=== PATIENT | male | born 1945 | race Caucasian/White ===

== ENCOUNTER 2017-02-25 14:48 | Inpatient (IN) | payer OTHER, MEDICARE ==
--- NOTE | 2017-02-25 15:11 | PDOC ---
Attending Attestation - Resident Resident Name: Katerina Alfonso - ED Attending Attestation I have performed the following: I have examined & evaluated the patient, The case was reviewed & discussed with the resident, I agree w/resident's findings & plan, Exceptions are as noted - HPI HPI: 02/25/17 15:10 71 yo male with hand swelling and redness. sent by dr baca for hand swelling erythema concern for infection. 03/22/17 17:55 - Physicial Exam PE: 02/25/17 17:54 awake alert lungs clear heart rr no mrg abd soft nt nd ext wwp. lue: wrist ttp. decreased rom secondary to pain. erythema warmth and edema. to elbow. n/v intact. skin otherwise warm and dry. nuero alert orientedx 3. - Medical Decision Making 02/25/17 15:11 plan antiobtiocs, xray, ekg admission will d/w dr baca and dr vivek roland.
[2017-02-25] MEDS ORDERED: VANCOMYCIN 1 GRAM (PRE-DOCKED) 1,000 MG/250 ML BAG IVPB ONE (16:10)
[2017-02-25] MEDS ORDERED: PIPERACILLIN/TAZOB 3.375 GM/50 ML PRE-DOCKED IV ONE (16:12)
[2017-02-25 16:13] LABS: BASOPHIL 0.2 % (0-2.0); MCH 30.9 pg (25.7-33.7); MEAN CELL VOLUME 90.9 fl (80-96); MEAN PLT VOLUME 9.3 fl (7.5-11.1); NEUTROPHILS 79.2 % (42.8-82.8); PLATELET COUNT 195 K/MM3 (134-434); RDW 13.6 % (11.9-15.9); WHITE BLOOD COUNT 12.6 K/mm3 (4.0-10.0)
--- NOTE | 2017-02-25 16:13 | PDOC ---
History of Present Illness - General Chief Complaint: Edema Stated Complaint: LT ARM/HAND PAIN (PCP SENT) Time Seen by Provider: 02/25/17 14:54 History Source: Patient, Spouse Exam Limitations: No Limitations - History of Present Illness Initial Comments: This is a 71 yo male with h/o gout (on allopurinol with last flare 15 years ago) , HTN, and CAD who presents with left wrist and hand pain/swelling for the past four days. He was seen at Urgent Care three days ago and was given colchicine, which he has taken daily along with indosin without relief. The pain is worsening, 10/10 now, located in the left hand and wrist, worsens with any movement of the joints, and radiates to the elbow. It feels flushed and hot. He has had these symptoms before in his toe and ankle associated with gout flares, but never this degree of swelling and never on the wrist. He additionally feels tired, weak, dyspneic on exertion, and has had temperature up to 100.1 with chills at home, and headache. He denies any nausea, vomiting, chest pain, SOB at rest, vision changes, change in weight, or other symptoms. He has not injured the hand lately and notes no recent skin breaks to the area. Past History - Past Medical History Allergies/Adverse Reactions: Allergies Allergy/AdvReac Type Severity Reaction Status Date / Time No Known Allergies Allergy Verified 02/25/17 14:59 Home Medications: Ambulatory Orders Allopurinol [Zyloprim -] 300 mg PO DAILY 02/25/17 Atorvastatin Ca [Lipitor] 40 mg PO HS 02/25/17 Cholecalciferol (Vitamin D3) [Vitamin D3] 2,000 unit PO DAILY 02/25/17 Ezetimibe [Zetia] 10 mg PO DAILY 02/25/17 Losartan Potassium 50 mg PO BID 02/25/17 Meclizine HCl 25 mg PO TID PRN 02/25/17 Metformin HCl [Metformin HCl ER] 1,000 mg PO BID 02/25/17 Metoprolol Succinate [Toprol Xl -] 25 mg PO DAILY 02/25/17 Spironolactone [Aldactone] 50 mg PO DAILY 02/25/17 Vitamin E 400 unit PO DAILY 02/25/17 Anemia: No Asthma: No Cancer: No Cardiac Disorders: Yes (ASHD,PAROXYSMAL ATRIAL FLUTTER S/P ABLATION) CVA: No COPD: No CHF: No Dementia: No Diabetes: Yes (NIDDM) GI Disorders: Yes (DIVERTICULOSIS,GALLSTONES) Disorders: No HTN: Yes Hypercholesterolemia: Yes Liver Disease: Yes (NAFLD) Seizures: No Thyroid Disease: No Other medical history: GOUT. - Surgical History Abdominal Surgery: No Appendectomy: No Cardiac Surgery: Yes (QUADRUPLE CORONARY BYPASS-1982,TRIPLE CORONARY BYPASS-1999 ,ANGIOPLASTY) Cholecystectomy: No Lung Surgery: No Neurologic Surgery: No Orthopedic Surgery: No - Immunization History Td Vaccination: Yes Immunization Up to Date: Yes - Psycho/Social/Smoking Cessation Hx Anxiety: No Suicidal Ideation: No Smoking Status: Yes Smoking History: Never smoked Years of Tobacco Use: 0 Have you smoked in the past 12 months: No Number of Cigarettes Smoked Daily: 0 If you are a former smoker, when did you quit?: 30 years ago Cigars Per Day: 0 Information on smoking cessation initiated: No Hx Alcohol Use: No Drug/Substance Use Hx: No Substance Use Type: None Hx Substance Use Treatment: No Review of Systems - Review of Systems Able to Perform ROS?: Yes Constitutional: Yes: Chills, Fever, Weakness. No: Unexplained wgt Loss HEENTM: No: Recent change in vision, Nose Congestion, Throat Pain Respiratory: Yes: SOB with Exertion. No: Cough, SOB at Rest Cardiac (ROS): No: Chest Pain, Palpitations ABD/GI: No: Constipated, Diarrhea, Nausea, Vomiting : No: Burning, Dysuria Musculoskeletal: Yes: Other (wrist and hand pain and swelling). No: Back Pain, Neck Pain Integumentary: No: Bruising, Rash Neurological: Yes: Headache. No: Weakness, Dizziness Endocrine: No: Unexplained Weight Gain, Unexplained Weight Loss *Physical Exam - Vital Signs Last Vital Signs Temp Pulse Resp BP Pulse Ox 98.3 F 108 H 18 113/66 98 02/25/17 14:49 02/25/17 14:49 02/25/17 14:49 02/25/17 14:49 02/25/17 14:49 - Physical Exam General Appearance: Yes: Nourished, Appropriately Dressed, Other (Well- appearing and nontoxic older male who is pleasant and conversive, favoring left upper extremity, answering questions appropriately). No: Apparent Distress HEENT: positive: EOMI, Normal Voice, Hearing Grossly Normal. negative: Scleral Icterus (R), Scleral Icterus (L), Nasal Congestion Neck: positive: Trachea midline, Supple. negative: Tender, Rigid Respiratory/Chest: positive: Lungs Clear, Normal Breath Sounds. negative: Respiratory Distress, Crackles, Rhonchi, Stridor, Wheezing Cardiovascular: positive: Regular Rhythm, Regular Rate. negative: Murmur Comments:: left ulnar pulse intact (Pt and states radial pulse is normally harder to find at baseline) Gastrointestinal/Abdominal: positive: Normal Bowel Sounds, Soft. negative: Tender, Organomegaly, Guarding Musculoskeletal: negative: CVA Tenderness (R), CVA Tenderness (L), Vertebral Tenderness Extremity: positive: Normal Capillary Refill, Tender (significant tenderness to palpation overlying swollen dorsum of left hand), Swelling (dorsum of left hand and wrist), Erythema (left dorsal hand/foot from base of all fingers extending about 4 cm proximal to wrist), Inflammation. negative: Normal Range of Motion ( left wrist minimal ROM ability 2/2 pain, also states pain on ROM of fingers and elbow on the left but he is able to perform these maneuvers), Cyanosis Integumentary: positive: Normal Color, Dry, Warm, Erythema (as noted above). negative: Rash, Bruising Neurologic: positive: machine fitter II-XII NML intact, Fully Oriented, Alert, Normal Mood/ Affect, Normal Response, Motor Strength 5/5 ED Treatment Course - LABORATORY CBC & Chemistry Diagram: 02/28/17 05:15 02/28/17 05:15 - RADIOLOGY Radiograph Interpretation: EXAM#: TYPE/EXAM: RESULT: [id number] RAD/FOREARM- LEFT RAD/WRIST W/HAND-LEFT* Left forearm 2 views Left hand and wrist 5 views Clinical information: wrist pain The left forearm demonstrates no radiographic evidence of fracture. No dislocation is seen. No definite osseous abnormality is visualized. Multiple small linear metallic densities are seen within the ventral soft tissues of the forearm ? Hemostatic/surgical clips. Evaluation of the left hand and wrist demonstrates no radiographic evidence of fracture. No dislocation is seen. Mild to moderate degenerative narrowing is seen involving the distal interphalangeal joints of the second, third and fourth digits. No periarticular soft tissue calcification is noted. Impression: No radiographic evidence of acute pathology. Follow-up imaging as clinically indicated. Reported By: Balbir Galeana MD 02/25/171939 EXAM#: TYPE/EXAM: RESULT: RAD/FOREARM- LEFT RAD/WRIST W/HAND-LEFT* Left forearm 2 views Left hand and wrist 5 views Clinical information: wrist pain The left forearm demonstrates no radiographic evidence of fracture. No dislocation is seen. No definite osseous abnormality is visualized. Multiple small linear metallic densities are seen within the ventral soft tissues of the forearm ? Hemostatic/surgical clips. Evaluation of the left hand and wrist demonstrates no radiographic evidence of fracture. No dislocation is seen. Mild to moderate degenerative narrowing is seen involving the distal interphalangeal joints of the second, third and fourth digits. No periarticular soft tissue calcification is noted. Impression: No radiographic evidence of acute pathology. Follow-up imaging as clinically indicated. Reported By: Balbir Galeana MD 02/25/171939 Medical Decision Making - Medical Decision Making 71 YOM with h/o gout on allopurinol p/w left hand/wrist pain/swelling worsening x5 days despite colchicine and NSAIDS. On exam has significant tenderness and swelling, mild redness, minimal warmth to left dorsal hand and wrist. Decreased ROM of all fingers and unable to range wrist at all, and states that ranging elbow hurts as well. DDX includes gout flare, cellulitis, abscess, tenosynovitis, septic arthritis, DVT, compartment syndrome. Ordered is CBCD, CMP, ESR, CRP, serum urate, blood cultures, lactate, xrays, vanc/zosyn, vicodin for pain. Spoke with Dr. Beebe with Ortho who will be called back when results are back. WBC, CRP, ESR are elevated, lactate is 2.4. Sepsis protocol initiated, IVF, vanc/zosyn. Xrays without obvious bony involvement, Ortho believes no e/o deep space infection. Ortho chief construction inspector agrees with plan for admission, Pt is admitted to inpatient med/ surg. *DC/Admit/Observation/Transfer Diagnosis at time of Disposition: Cellulitis Qualifiers: Site of cellulitis: extremity Site of cellulitis of extremity: upper extremity Laterality: left Qualified Code(s): L03.114 - Cellulitis of left upper limb - Discharge Dispostion Condition at time of disposition: Guarded Admit: Yes
[2017-02-25] MEDS ORDERED: PIPERACILLIN/TAZOB 3.375 GM 50 ML IVPB ONE (16:31)
[2017-02-25 16:54] LABS: URINE APPEARANCE TURBID; URINE BILIRUBIN NEGATIVE (NEGATIVE); URINE BLOOD 1+ (NEGATIVE); URINE COLOR AMBER; URINE GLUCOSE (UA) 1+ (NEGATIVE); URINE KETONE NEGATIVE (NEGATIVE); URINE LEUK ESTERASE NEGATIVE (NEGATIVE); URINE NITRITE NEGATIVE (NEGATIVE); URINE UROBILINOGEN NEGATIVE mg/dL (0.2-1.0)
[2017-02-25] MEDS ORDERED: VANCOMYCIN 1 GRAM (PRE-DOCKED) 250 ML IVPB ONE (17:06)
[2017-02-25 17:07] LABS: ALBUMIN 3.6 g/dl (3.4-5.0); ALK PHOS 109 U/L (45-117); ANION GAP 13 (8-16); BILIRUBIN,TOTAL 0.8 mg/dL (0.2-1.0); CALCIUM 9.9 mg/dL (8.5-10.1); CO2 24 mmol/L (21-32); CREATININE 2.4 mg/dL (0.7-1.3); GLUCOSE,RANDOM 272 mg/dL (74-106); SGOT/AST 23 U/L (15-37); SGPT/ALT 33 U/L (12-78); TOT PROT 7.2 g/dl (6.4-8.2)
[2017-02-25 17:07] LABS: URINE PROTEIN 2+ (NEGATIVE)
[2017-02-25 17:25] LABS: URINE BACTERIA RARE /hpf (NONE SEEN); URINE RBC 1 /hpf (0-3); URINE WBC 5 /hpf (3-5)
[2017-02-25 17:26] LABS: C-REACTIVE PROTEIN 15.5 MG/DL (0.00-0.3); URIC ACID 2.9 mg/dL (2.6-7.2)
[2017-02-25] MEDS ORDERED: SODIUM CHLORIDE 1,000 ML IV STA (18:32)
[2017-02-25] MEDS: IBUPROFEN 400 MG TABLET (FP) PO PRN (20:00)
[2017-02-25] MEDS ORDERED: PATIENT'S OWN MEDICATION (NON-FORMULARY) (Metformin Hcl [Metformin Hcl Er] 1,000 MG) PO SCH (22:00)
[2017-02-25] MEDS ORDERED: LOSARTAN POTASSIUM 50 MG TABLET (FP) PO SCH (22:00)
[2017-02-25] MEDS: oxyCODONE HCL 5 MG TABLET PO PRN (22:25)
[2017-02-25] MEDS: ACETAMINOPHEN 325 MG TABLET (FP) PO PRN (22:25)
[2017-02-25] MEDS: RANITIDINE HCL 150 MG TABLET (FP) PO SCH (22:27)
[2017-02-25] MEDS: ATORVASTATIN CA 40 MG TABLET (FP) PO SCH (22:27)
[2017-02-25] MEDS ORDERED: SODIUM CHLORIDE 500 ML IV ONE (23:15)
[2017-02-26 00:28] VITALS: BMI 30.2
[2017-02-26] MEDS ORDERED: PIPERACILLIN/TAZOBACTAM 2.25 GM VIAL IVPB ONE ×2 (01:05→09:23)
[2017-02-26] MEDS ORDERED: SODIUM CHLORIDE 50 ML IVPB ONE ×2 (01:06→09:23)
[2017-02-26] MEDS ORDERED: PIPERACILLIN/TAZOB 2.25 GM 2.25 GM in DEXTROSE 5%-WATER - 50 ML IVPB SCH (02:00)
[2017-02-26] MEDS: PIPERACILLIN/TAZOB 2.25 GM 2.25 GM in SODIUM CHLORIDE 50 ML IVPB SCH ×2 (02:41→09:40)
[2017-02-26] MEDS: IBUPROFEN 400 MG TABLET (FP) PO PRN (04:59)
[2017-02-26] MEDS: oxyCODONE HCL 5 MG TABLET PO PRN ×4 (06:32→21:33)
[2017-02-26] MEDS: ACETAMINOPHEN 325 MG TABLET (FP) PO PRN ×2 (06:32→12:33)
[2017-02-26] MEDS ORDERED: SODIUM CHLORIDE 1,000 ML IV SCH (07:00)
[2017-02-26] MEDS: SODIUM CHLORIDE 1,000 ML IV SCH ×2 (07:30→12:37)
[2017-02-26 08:02] LABS: BASOPHIL 0.5 % (0-2.0); EOSINOPHIL 0.2 % (0-4.5); MCH 30.5 pg (25.7-33.7); MCHC 34.1 g/dl (32.0-35.9); MEAN CELL VOLUME 89.5 fl (80-96); MEAN PLT VOLUME 8.7 fl (7.5-11.1); NEUTROPHILS 75.5 % (42.8-82.8); PLATELET COUNT 159 K/MM3 (134-434)
[2017-02-26 08:44] LABS: ALK PHOS 93 U/L (45-117); ANION GAP 16 (8-16); BILIRUBIN,TOTAL 1.1 mg/dL (0.2-1.0); CALCIUM 8.4 mg/dL (8.5-10.1); CO2 21 mmol/L (21-32); CREATININE 3.9 mg/dL (0.7-1.3); GLUCOSE,RANDOM 183 mg/dL (74-106); SGOT/AST 19 U/L (15-37); SGPT/ALT 27 U/L (12-78); TOT PROT 5.9 g/dl (6.4-8.2)
--- NOTE | 2017-02-26 09:10 | PN ---
Progress Note (short form) - Note Progress Note: Hx and PE to follow. Patient septic with infection left hand with severe pain and swelling. ? Compartment type syndrome ? source. Metallic clips seen on arm Xray are remnants of previous artery graft site for CABG. Await ID,Renal and Ortho MDs
[2017-02-26] MEDS: RANITIDINE HCL 150 MG TABLET (FP) PO SCH ×2 (09:38→21:33)
[2017-02-26] MEDS: CHOLECALCIFEROL (VITAMIN D3) 1,000 UNIT TABLET (FP) PO SCH (09:38)
[2017-02-26] MEDS: EZETIMIBE 10 MG TABLET (FP) PO SCH (09:40)
--- NOTE | 2017-02-26 09:55 | PN ---
Progress Note (short form) - Note Progress Note: Pt seen and examined. In summary he is a 71 yo right hand dom male with about 4 days of increasing pain, swelling in the left hand, wrist, forearm. Denies recent h/o trauma, bug bite, infection. He does have a h/o gout. He takes allopurinol 300mg qDay. AVSS WBC=14.0 and increasing ESR=69 CRP=15.5 Bld Cx Pending Xrays of the left arm, wrist, hand are all normal. No acute pathology. PE LUE is very tender to touch over the dorsal ulnar distal forearm, wrist, and hand + mod swelling with erythema over the dorsal aspect left hand. Very little to no swelling of the forearm NVI, no parasthesias or numbness Limited ROM of the fingers, hand, wrist bc of pain Good ROM of the left elbow with no pain. No obvious fluid collections. Imp Left UE cellulitis. No abscesses to I&D at this time Will con't to monitor Con't abx
[2017-02-26] MEDS ORDERED: PT OWN MED DRAWER 7, Y5N ONE ×3 (09:59→13:47)
[2017-02-26] MEDS ORDERED: VANCOMYCIN 1,000 MG in DEXTROSE 5%-WATER - 250 ML IVPB SCH (10:00)
[2017-02-26] MEDS ORDERED: VANCOMYCIN 1 GRAM (PRE-DOCKED) 1,000 MG/250 ML BAG IVPB ONE (10:00)
[2017-02-26] MEDS ORDERED: VANCOMYCIN 1,000 MG in SODIUM CHLORIDE 250 ML IVPB ONE (10:00)
[2017-02-26] MEDS ORDERED: ALLOPURINOL 300 MG TABLET (FP) PO SCH ×2 (10:00→10:32)
[2017-02-26] MEDS ORDERED: SPIRONOLACTONE 25 MG TABLET (FP) PO SCH (10:00)
[2017-02-26] MEDS: METOPROLOL SUCCINATE 25 MG TAB.SR.24H (FP) PO SCH (10:50)
[2017-02-26] MEDS: MECLIZINE HCL 25 MG TABLET (FP) PO PRN ×2 (10:55→21:33)
--- NOTE | 2017-02-26 11:10 | CON.NEP ---
Consult Consult Specialty:: Nephrology Referred by:: Dr. Ruano Reason for Consultation:: Acute Renal Failure - History of Present Illness Chief Complaint: Left Hand pain and swelling History of Present Illness: This is a 71 year old Gentleman with PMhx of CAD s/p CABG, Hypertension, Gout, DM Type 2 who presented with complaints of Left Hand swelling and pain not improved with NSAIDs and found to have Cellulitis and JOE with BUN/Cr of 53/ 3.9. Pt states that the hand pain started 5 days ago and he was taking Motrin and then Indomethacin for the pain in addition to [place] and Allopurinol. + Fever at home. Denies any Abx use. No contrast exposure. No flank pain. + urine output. - History Source History Provided By: Patient Limitations to Obtaining History: No Limitations - Past Medical History Cardio/Vascular: Yes: CAD, HTN Rheumatology: Yes: Gout Endocrine: Yes: Diabetes Mellitus - Alcohol/Substance Use Hx Alcohol Use: No - Smoking History Smoking history: Never smoked Have you smoked in the past 12 months: No Aproximately how many cigarettes per day: 0 If you are a former smoker, when did you quit?: 30 years ago Home Medications - Allergies Allergies/Adverse Reactions: Allergies Allergy/AdvReac Type Severity Reaction Status Date / Time No Known Allergies Allergy Verified 02/25/17 14:59 - Home Medications Home Medications: Ambulatory Orders Allopurinol [Zyloprim -] 300 mg PO DAILY 02/25/17 Atorvastatin Ca [Lipitor] 40 mg PO HS 02/25/17 Cholecalciferol (Vitamin D3) [Vitamin D3] 2,000 unit PO DAILY 02/25/17 Ezetimibe [Zetia] 10 mg PO DAILY 02/25/17 Losartan Potassium 50 mg PO BID 02/25/17 Meclizine HCl 25 mg PO TID PRN 02/25/17 Metformin HCl [Metformin HCl ER] 1,000 mg PO BID 02/25/17 Metoprolol Succinate [Toprol Xl -] 25 mg PO DAILY 02/25/17 Spironolactone [Aldactone] 50 mg PO DAILY 02/25/17 Vitamin E 400 unit PO DAILY 02/25/17 Family Disease History - Family Disease History Family History: Unremarkable Review of Systems - Review of Systems Constitutional: reports: Fever, Lethargy, Loss of Appetite Eyes: reports: No Symptoms HENT: reports: No Symptoms Neck: reports: No Symptoms Cardiovascular: denies: Chest Pain, Edema, Palpitations, Shortness of Breath Respiratory: denies: Exercise Intolerance, Hemoptysis, Orthopnea, SOB, SOB on Exertion Gastrointestinal: denies: Abdominal Pain, Nausea, Vomiting, Vomiting Blood Genitourinary: denies: Burning, Dysuria, Flank Pain Musculoskeletal: reports: Joint Pain, Joint Swelling Integumentary: reports: Erythema Neurological: reports: No Symptoms Endocrine: reports: No Symptoms Psychiatric: reports: No Symptoms Nephrology Consult - Height Height: 5 ft 11 in - Weight Weight: 217 lb - BMI Body Mass Index (BMI): 30.2 - Lab Results CBC,BMP: CBC, BMP 02/26/17 07:00 02/26/17 07:00 Anion Gap: Anion Gap Anion Gap 16 (8-16) 02/26/17 07:00 - Imaging X-ray: Report Reviewed - Physical Examination Vital Signs: Vital Signs Temperature 98.5 F 02/26/17 09:00 Pulse Rate 87 02/26/17 09:00 Respiratory Rate 18 02/26/17 09:00 Blood Pressure 109/55 02/26/17 09:00 O2 Sat by Pulse Oximetry (%) 96 02/26/17 09:00 Constitutional: Yes: Well Nourished, No Distress, Calm Eyes: Yes: Conjunctiva Clear HENT: Yes: Atraumatic, Normocephalic Neck: Yes: Supple Cardiovascular: Yes: Regular Rate and Rhythm Respiratory: Yes: Regular, CTA Bilaterally Gastrointestinal: Yes: Normal Bowel Sounds, Soft Renal/: No: Anuria, Bladder Distention, CVA Tenderness - Left, CVA Tenderness - Right, Taylor Present Extremities: Yes: Erythema, Other (tenderness on left hand/wrist) Edema: No Neurological: Yes: Alert, Oriented Psychiatric: Yes: Alert Problem List - Problems (1) Cellulitis Code(s): L03.90 - CELLULITIS, UNSPECIFIED Qualifiers: Site of cellulitis: extremity Site of cellulitis of extremity: upper extremity Laterality: left Qualified Code(s): L03.114 - Cellulitis of left upper limb (2) Acute renal failure (ARF) Code(s): N17.9 - ACUTE KIDNEY FAILURE, UNSPECIFIED (3) CAD (coronary artery disease) Code(s): I25.10 - ATHSCL HEART DISEASE OF [place] CORONARY ARTERY W/O ANG PCTRS (4) Hypertension Code(s): I10 - ESSENTIAL (PRIMARY) HYPERTENSION (5) Gout Code(s): M10.9 - GOUT, UNSPECIFIED (6) Leukocytosis Code(s): D72.829 - ELEVATED WHITE BLOOD CELL COUNT, UNSPECIFIED (7) Hyponatremia Code(s): E87.1 - HYPO-OSMOLALITY AND HYPONATREMIA Assessment/Plan 71 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 #Acute Kidney Injury Differential: ATN (NAIDs + Infection + ARB/Aldactone) vs. Alloprinol Hypersensativity (less likely) vs. Obstruction (less likely) check urine studies and Renal/Bladder US No indication for INSTRUCTIONAL SUPPORT SERVICES DIRECTOR at this time Supportive care with isotonic IVF D/C ARB, Aldactone, NSAIDs dose all meds for Cr Cl less then 15 can maintain regular diet for now Trend BUN/Cr, Phos #Hyponatremia in setting of CKD likely related to mild volume expansion can continue isotonic saline Trend Na for now #Cellulitis r/o Joint infection/Leukocytosis continue abx as per primary f/u cultures avoid IV contrast if further imaging is needed Trend VAnco levels #Hx of Gout Allopurinol reduced to 100mg daily #Hypertension BP ok/marginal here off ARB/Aldactone Trend BP #CAD off ARB/Aldactone continue BB as needed thank you for this referral Will continue to follow Aubrey Acharya DO Current Medications Acetaminophen (Tylenol -) 650 mg PO Q6H PRN PRN Reason: FEVER OR PAIN Last Admin: 02/26/17 06:32 Dose: 650 mg Allopurinol (Zyloprim -) 100 mg PO DAILY [facility] Atorvastatin Calcium (Lipitor -) 40 mg PO HS PAULINA Last Admin: 02/25/17 22:27 Dose: Not Given Cholecalciferol (Vitamin D3 -) 2,000 unit PO DAILY [facility]UL[facility] Last Admin: 02/26/17 09:38 Dose: 2,000 unit Ezetimibe (Zetia -) 10 mg PO DAILY [facility] Last Admin: 02/26/17 09:40 Dose: 10 mg Vancomycin HCl 1,000 mg/ (Dextrose) 250 mls @ 250 mls/hr IVPB DAILY PAULINA PRN Reason: Protocol Piperacillin Sod/Tazobactam (Sod 2.25 gm/ Dextrose) 50 mls @ 100 mls/hr IVPB Q8H-IV PAULINA PRN Reason: Protocol Sodium Chloride (Normal Saline -) 1,000 mls @ 75 mls/hr IV ASDIR PAULINA Last Admin: 02/26/17 07:30 Dose: Not Given Meclizine HCl (Antivert -) 25 mg PO TID PRN PRN Reason: DIZZINESS Last Admin: 02/26/17 10:55 Dose: 25 mg Metoprolol Succinate (Toprol Xl -) 25 mg PO DAILY [facility] Last Admin: 02/26/17 10:50 Dose: Not Given Oxycodone HCl (Roxicodone -) 5 mg PO Q4H PRN PRN Reason: PAIN Last Admin: 02/26/17 11:02 Dose: 5 mg Ranitidine HCl (Zantac -) 150 mg PO BID [facility] Last Admin: 02/26/17 09:38 Dose: 150 mg Vitamin E (Vitamin E -) 400 unit PO DAILY [facility]
--- NOTE | 2017-02-26 12:24 | EKG ---
Test Reason : Blood Pressure : / mmHG Vent. Rate : 099 BPM Atrial Rate : 099 BPM P-R Int : 144 ms QRS Dur : 082 ms QT Int : 326 ms P-R-T Axes : 040 021 030 degrees QTc Int : 418 ms NORMAL SINUS RHYTHM NORMAL ECG WHEN COMPARED WITH ECG OF 16-NOV-2012 07:37, VENT. RATE HAS INCREASED BY 47 BPM Confirmed by ANDRZEJ SOLIS MD ([id number]) on 02/26/2017 12:23:45 PM Referred By: Confirmed By:ANDRZEJ SOLIS MD
--- NOTE | 2017-02-26 13:03 | HP ---
Admitting History and Physical - Primary Care Physician PCP: Joshua Boyd - Admission Chief Complaint: Pain and swelling left wrist and forearm off-and-on for 3-4 days History of Present Illness: Patient with a known history of ASHD and coronary artery bypass x2, gout on allopurinol, hypertension, history of pneumonia, diabetes mellitus type 2, cholelithiasis, hyperlipidemia, fatty liver and BPH comes to my office on the day of admission with complaints of pain and swelling of his left hand wrist and forearm. This swelling and pain began about 4 days ago. He went to the local Docs and was told the diagnosis was gout with an acute flareup even though the patient told them he had been taking his allopurinol religiously. No CBC or uric acid was done. No antibiotics were givenbut instead was given Indocin and colchicine. Patient pain and swelling got worse and on the morning of February 25 came to my office and with low-grade fevers and acute cellulitis and pain on movement of his fingers of his hand recommended immediate transfer to the emergency room where he was evaluated and admission was advised. History Source: Patient Limitations to Obtaining History: No Limitations - Past Medical History PLANT ECOLOGIST: Yes: Vertigo (history of Mniere's) Cardiovascular: Yes: CAD, HTN, Hyperlipdemia Gastrointestinal: Yes: Other (fatty liver) Hepatobiliary: Yes: Cholelithiasis Renal/: Yes: Renal Inusuff Psych: Yes: Anxiety Musculoskeletal: Yes: Other (severe pain and swelling left wrist hand and forearm) Rheumatology: Yes: Gout Endocrine: Yes: Diabetes Mellitus - Past Surgical History Past Surgical History: Yes: CABG (left arm removal of artery for harvesting for coronary artery bypass) - Smoking History Smoking history: Former smoker Have you smoked in the past 12 months: No Aproximately how many cigarettes per day: 0 If you are a former smoker, when did you quit?: 30 years ago - Alcohol/Substance Use Hx Alcohol Use: No History of Substance Use: reports: None - Social History Usual Living Arrangement: Yes: With Spouse 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 History of Recent Travel: No Home Medications - Allergies Allergies/Adverse Reactions: Allergies Allergy/AdvReac Type Severity Reaction Status Date / Time No Known Allergies Allergy Verified 02/25/17 14:59 - Home Medications Home Medications: Ambulatory Orders Allopurinol [Zyloprim -] 300 mg PO DAILY 02/25/17 Atorvastatin Ca [Lipitor] 40 mg PO HS 02/25/17 Cholecalciferol (Vitamin D3) [Vitamin D3] 2,000 unit PO DAILY 02/25/17 Ezetimibe [Zetia] 10 mg PO DAILY 02/25/17 Losartan Potassium 50 mg PO BID 02/25/17 Meclizine HCl 25 mg PO TID PRN 02/25/17 Metformin HCl [Metformin HCl ER] 1,000 mg PO BID 02/25/17 Metoprolol Succinate [Toprol Xl -] 25 mg PO DAILY 02/25/17 Spironolactone [Aldactone] 50 mg PO DAILY 02/25/17 Vitamin E 400 unit PO DAILY 02/25/17 Family Disease History - Family Disease History Family Disease History: Heart Disease: Father, Other: Mother (possibly a former leukemia) Review of Systems - Review of Systems Constitutional: reports: Chills, Fever Cardiovascular: denies: Chest Pain Respiratory: denies: No Symptoms Gastrointestinal: reports: No Symptoms Genitourinary: reports: No Symptoms Musculoskeletal: reports: Extremity Pain, Joint Pain (left wrist hand and forearm) Integumentary: reports: Eczema (occasionally pruritus on skin of upper extremities) Hematology/Lymphatic: reports: No Symptoms Psychiatric: reports: Anxiety Physical Examination Vital Signs: Vital Signs Temperature 98.5 F 02/26/17 09:00 Pulse Rate 84 02/26/17 10:15 Respiratory Rate 18 02/26/17 10:15 Blood Pressure 97/57 02/26/17 10:15 O2 Sat by Pulse Oximetry (%) 96 02/26/17 09:00 Constitutional: Yes: Anxious, Mild Distress Eyes: Yes: Conjunctiva Clear Cardiovascular: Yes: Regular Rate and Rhythm Respiratory: Yes: Regular Gastrointestinal: Yes: Soft. No: Distention Renal/: No: Taylor Present Musculoskeletal: Yes: Joint Stiffness, Joint Swelling, Other (severe erythema dorsum of left hand; swelling dorsum of left hand. Pain when moving any of his fingers or when moving his wrist were touching his elbow Slight erythema wrist and lower forearm) Extremities: Yes: WNL Edema: No Integumentary: Yes: Erythema (left forearm wrist and especially dorsum of left hand) Neurological: Yes: Alert, Oriented ...Motor Strength: LUE (difficult to bend the fingers of hand secondary to swelling of the dorsum of the hand and pain) Labs: CBC, BMP 02/26/17 07:00 02/26/17 07:00 Imaging - Results X-ray: Report Reviewed EKG: Report Reviewed Problem List - Problems (1) Cellulitis Assessment/Plan: acute cellulitis left hand and wrist and forearm with positive blood cultures. White count elevated Sed. Rate markedly elevated Await ID visit. On antibiotics Vanco and Zosyn Code(s): L03.90 - CELLULITIS, UNSPECIFIED Qualifiers: Site of cellulitis: extremity Site of cellulitis of extremity: upper extremity Laterality: left Qualified Code(s): L03.114 - Cellulitis of left upper limb (2) Acute renal failure (ARF) Assessment/Plan: marked elevation of BUN and creatinine the lateral to 3.9. Seen by renal physician. All renal toxic drugs are being held or stopped. Await ID to see if this an adjustment of his current antibiotics Code(s): N17.9 - ACUTE KIDNEY FAILURE, UNSPECIFIED (3) CAD (coronary artery disease) Assessment/Plan: history of coronary artery bypass x2. Artery from left forearm was harvested for bypass;note metal clips on x-ray of forearm Code(s): I25.10 - ATHSCL HEART DISEASE OF [place] CORONARY ARTERY W/O ANG PCTRS (4) Gout Assessment/Plan: uric acid 2.9 no No evidence of acute gout. Patient now on allopurinol 100 mg a day Code(s): M10.9 - GOUT, UNSPECIFIED (5) Hypertension Assessment/Plan: is on beta moustapha because of ASHD and hypertension Will hold dose of metoprolol if systolic below 100 Code(s): I10 - ESSENTIAL (PRIMARY) HYPERTENSION (6) Hyponatremia Assessment/Plan: possibly related to hyperglycemia will follow Code(s): E87.1 - HYPO-OSMOLALITY AND HYPONATREMIA
[2017-02-26] MEDS: VITAMIN E 400 INTERNATIONAL-UNITS CAPSULE (FP) PO SCH (14:19)
--- NOTE | 2017-02-26 14:23 | CON.ID ---
Consult Consult Specialty:: infectious diseases Referred by:: Reason for Consultation:: cellultitis of the left hand - History of Present Illness Chief Complaint: pain and swelling of the the left wrist History of Present Illness: 71 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 Pt states that the hand pain started 5 days ago and he was taking Motrin and then Indomethacin for the pain in addition to [place] and Allopurinol. + Fever at home. Denies any Abx use. No contrast exposure. No flank pain. + urine output. patient mentions that he had fevers which was associated with chills and sweats. 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: Vertigo (history of Mniere's) Cardio/Vascular: Yes: CAD, HTN, Hyperlipdemia Gastrointestinal: Yes: Other (fatty liver) Hepatobiliary: Yes: Cholelithiasis Renal/: Yes: Renal Inusuff Psych: Yes: Anxiety Musculoskeletal: Yes: Other (severe pain and swelling left wrist hand and forearm) Rheumatology: Yes: Gout Endocrine: Yes: Diabetes Mellitus - Past Surgical History Past Surgical History: Yes: CABG (left arm removal of artery for harvesting for coronary artery bypass) - Alcohol/Substance Use Hx Alcohol Use: No History of Substance Use: reports: None - Smoking History Smoking history: Former smoker Have you smoked in the past 12 months: No Aproximately how many cigarettes per day: 0 If you are a former smoker, when did you quit?: 30 years ago - Social History 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 History of Recent Travel: No Home Medications - Allergies Allergies/Adverse Reactions: Allergies Allergy/AdvReac Type Severity Reaction Status Date / Time No Known Allergies Allergy Verified 02/25/17 14:59 - Home Medications Home Medications: Ambulatory Orders Allopurinol [Zyloprim -] 300 mg PO DAILY 02/25/17 Atorvastatin Ca [Lipitor] 40 mg PO HS 02/25/17 Cholecalciferol (Vitamin D3) [Vitamin D3] 2,000 unit PO DAILY 02/25/17 Ezetimibe [Zetia] 10 mg PO DAILY 02/25/17 Losartan Potassium 50 mg PO BID 02/25/17 Meclizine HCl 25 mg PO TID PRN 02/25/17 Metformin HCl [Metformin HCl ER] 1,000 mg PO BID 02/25/17 Metoprolol Succinate [Toprol Xl -] 25 mg PO DAILY 02/25/17 Spironolactone [Aldactone] 50 mg PO DAILY 02/25/17 Vitamin E 400 unit PO DAILY 02/25/17 Family Disease History - Family Disease History Family Disease History: Heart Disease: Father, Other: Mother (possibly a former leukemia) Review of Systems - Review of Systems Constitutional: reports: Fever, Night Sweats Eyes: reports: No Symptoms HENT: reports: No Symptoms Neck: reports: No Symptoms Cardiovascular: reports: No Symptoms Respiratory: reports: No Symptoms Gastrointestinal: reports: No Symptoms Genitourinary: reports: No Symptoms Integumentary: reports: Change in Color, Erythema, Other Neurological: reports: No Symptoms Endocrine: reports: No Symptoms Hematology/Lymphatic: reports: No Symptoms Psychiatric: reports: No Symptoms Physical Exam Vital Signs: Vital Signs Temperature 98.5 F 02/26/17 09:00 Pulse Rate 84 02/26/17 10:15 Respiratory Rate 18 02/26/17 10:15 Blood Pressure 97/57 02/26/17 10:15 O2 Sat by Pulse Oximetry (%) 96 02/26/17 09:00 Constitutional: Yes: Well Nourished, Calm, Moderate Distress Eyes: Yes: Conjunctiva Clear HENT: Yes: Atraumatic, Normocephalic Neck: Yes: Supple, Trachea Midline Cardiovascular: Yes: Regular Rate and Rhythm Respiratory: Yes: Regular, CTA Bilaterally Gastrointestinal: Yes: Normal Bowel Sounds, Soft Musculoskeletal: Yes: Other Extremities: Yes: Erythema (left side), Other (swollen tender left wrist joint) Integumentary: Yes: Erythema, Other Neurological: Yes: Alert, Oriented Psychiatric: Yes: Alert, Oriented Labs: CBC, BMP 02/26/17 07:00 02/26/17 07:00 Imaging - Results X-ray: Report Reviewed, Image Reviewed Assessment/Plan looked at this patient in detail and examined this patient is diabetic and immunocompromised now he has swelling and tenderness of his wrist and the blood cx are positive with gm positive cocci in clusters which i strongly suspect is staph patient has developed a new renal failure and had all the symptoms of being septic my first thought process is this is probably a septic joint sepsis septic left wrist joint gm positive bacteremia fever tenderness plan vanco q 48 hours with strict levels to be done await for identification of bacteria ordered a ct of the wrist echo to be done looking at the complete picture ----IF Tthis comes out to be staph aureus patient wrist probably will need to washed out if he does not show signs of improvement i am also going to order a esr and crp
[2017-02-26] MEDS ORDERED: ACETAMINOPHEN 325 MG TABLET (FP) PO ONE ×2 (17:00→17:15)
[2017-02-26] MEDS ORDERED: oxyCODONE HCL 5 MG TABLET PO ONE ×2 (17:00→17:15)
[2017-02-26] MEDS: ATORVASTATIN CA 40 MG TABLET (FP) PO SCH (21:33)
[2017-02-27] MEDS: SODIUM CHLORIDE 1,000 ML IV SCH ×2 (01:30→10:27)
[2017-02-27] MEDS: oxyCODONE HCL 5 MG TABLET PO PRN ×3 (06:55→21:12)
[2017-02-27] MEDS ORDERED: INSULIN SLIDING SCALE (NOVOLOG) 1 VIAL SQ SCH (07:00)
[2017-02-27] MEDS ORDERED: INSULIN (NOVOLOG) ASPART 100 UNITS/ML 10ML VIAL ONE ×2 (07:57→12:04)
[2017-02-27] MEDS ORDERED: INSULIN DETEMIR 100 UNITS/ML MDV SQ ONE (07:57)
[2017-02-27 08:23] LABS: BASOPHIL 0.2 % (0-2.0); EOSINOPHIL 0.6 % (0-4.5); MCH 30.7 pg (25.7-33.7); MCHC 33.6 g/dl (32.0-35.9); MEAN CELL VOLUME 91.2 fl (80-96); MEAN PLT VOLUME 8.5 fl (7.5-11.1); NEUTROPHILS 71.1 % (42.8-82.8); PLATELET COUNT 150 K/MM3 (134-434); RDW 13.9 % (11.9-15.9)
[2017-02-27 09:34] LABS: ALBUMIN 2.8 g/dl (3.4-5.0); ALK PHOS 122 U/L (45-117); ANION GAP 15 (8-16); BILIRUBIN,TOTAL 1.1 mg/dL (0.2-1.0); CALCIUM 7.9 mg/dL (8.5-10.1); CO2 21 mmol/L (21-32); CREATININE 6.1 mg/dL (0.7-1.3); GLUCOSE,RANDOM 177 mg/dL (74-106); PHOSPHOROUS 4.3 mg/dL (2.5-4.9); SGOT/AST 30 U/L (15-37); SGPT/ALT 30 U/L (12-78); TOT PROT 6.2 g/dl (6.4-8.2)
--- NOTE | 2017-02-27 09:53 | PN ---
Progress Note (short form) - Note Progress Note: Ortho Pt seen and examined- improving Selected Entries 02/26/17 21:41 Temperature 98.2 F Pulse Rate 89 Respiratory 18 Rate Blood Pressure 118/63 Laboratory Tests 02/27/17 07:35 WBC 12.0 H Hgb 11.5 L Hct 34.2 L Plt Count 150 Left hand/wrist- decr swelling, decr pain, incr rom nvi CT scan- soft tissue swelling, no fluid collections a/p Continue IV ABX as per ID elevation ROM exercises no surgical intervention at the present time will follow d/w DR. Ortega
--- NOTE | 2017-02-27 10:03 | PN ---
Progress Note (short form) - Note Progress Note: Patient with acute Cellulitis right hand, wrist and forearm is on IV Antibiotics but still having marked pain especially at the wrist area. Blood C/ S + for MSSA. Feeling ill today with nausea, vomiting and marked elevation of Renal lab to BUN 66 and Creatinine of 6.1. Of note is that on a lab his BUN was 14 and Creatinine 1.04. Renal Scan WNL and only 23 cc of urine on Bladder sonogram. No urination today. CAT Scan : No evidence of bone infection but MRI mis precluded due to metal in forearm due top vascular grafting procedure. On Exam: Vital Signs Temp 98.2 F 02/26/17 21:41 Pulse 89 02/26/17 21:41 Resp 18 02/26/17 21:41 BP 118/63 02/26/17 21:41 Pulse Ox 96 02/26/17 21:00 Intake & Output 02/26/17 02/26/17 02/27/17 11:59 23:59 11:59 Intake Total 170 1450 825 Output Total 50 Balance 170 1400 825 Weight 217 lb Intake: IV 900 825 Normal Saline - 1,000 ml 900 825 @ 75 mls/hr IV ASDIR [facility] Rx#:[id number] IVPB 50 100 Oral 120 450 Output: Urine 50 Void 50 Other: Voiding Method Urinal Urinal # Unmeasured Voids Void 1 3 Bowel Movement No Height 5 ft 11 in Body Mass Index (BMI) 30.2 Alert but tired due to poor sleeping Chest: Clear Cor Reg Abd: Soft with no bladder dullness to percussion Ext:No edema Abnormal Lab Results 02/26/17 02/27/17 02/27/17 12:55 07:35 07:35 WBC 12.0 H RBC 3.75 L Hgb 11.5 L Hct 34.2 L Monocytes % 15.3 H Sodium 128 L Chloride 92 L BUN 66 H D Creatinine 6.1 H D Random Glucose 177 H Calcium 7.9 L Total Bilirubin 1.1 H Alkaline Phosphatase 122 H D C-Reactive Protein Total Protein 6.2 L Albumin 2.8 L U Random Total Protein 336 H 02/27/17 07:35 WBC RBC Hgb Hct Monocytes % Sodium Chloride BUN Creatinine Random Glucose Calcium Total Bilirubin Alkaline Phosphatase C-Reactive Protein 24.1 H D Total Protein Albumin U Random Total Protein IMP: Acute MSSA sepsis Acute cellulitis right hand, wrist and fgorearm R/O Osteomyelitis NIDDM Acute renal Failure S/P 2 CABG's Nausea due renal failure. 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
[2017-02-27] MEDS ORDERED: PT OWN MED DRAWER 7, Y5N ONE ×2 (10:20→23:01)
[2017-02-27] MEDS: CHOLECALCIFEROL (VITAMIN D3) 1,000 UNIT TABLET (FP) PO SCH (10:27)
[2017-02-27] MEDS: VITAMIN E 400 INTERNATIONAL-UNITS CAPSULE (FP) PO SCH (10:28)
[2017-02-27] MEDS: ALLOPURINOL 100 MG TABLET (FP) PO SCH (10:28)
[2017-02-27] MEDS: POLYETHYLENE GLYCOL 3350 119 GM BTL PO SCH (10:28)
[2017-02-27] MEDS: EZETIMIBE 10 MG TABLET (FP) PO SCH (10:28)
[2017-02-27] MEDS: RANITIDINE HCL 150 MG TABLET (FP) PO SCH ×2 (10:28→21:12)
[2017-02-27] MEDS: ONDANSETRON 4 MG/2 ML VIAL IVPB PRN (10:29)
[2017-02-27] MEDS: MECLIZINE HCL 25 MG TABLET (FP) PO PRN (10:29)
[2017-02-27] MEDS: METOPROLOL SUCCINATE 25 MG TAB.SR.24H (FP) PO SCH (11:53)
[2017-02-27] MEDS: INSULIN SLIDING SCALE (NOVOLOG) 1 VIAL SQ SCH ×2 (12:05→17:51)
[2017-02-27] MEDS ORDERED: CEFAZOLIN 500 MG in DEXTROSE 5%-WATER - 50 ML IVPB SCH (14:15)
--- NOTE | 2017-02-27 14:20 | PN ---
Progress Note (short form) - Note Progress Note: Pt seen and examined. In the pt's own words he feels that he is getting better. He notices specific improvement over the past 24-48 hours. Specifically he notes improved ROM of all the fingers and thumb of his left hand, with less pain. He notes improved ROM with less pain of the left elbow. He also believes the cellulitic area is less erythematous, and less swollen. I agree with all of his opinions. He is still quite tender to palpation over the dorsal aspect of the left hand, wrist, and the ulnar aspect of the forearm. WBC decreased but still elevated at 12.6 ESR increased to 85 CRP increased to 24.1 Blood Cx + for MSSA Ct Scan of the left UE reviewed-I agree with the radiologist's assessment that there are no defined fluid collections, no abscesses, no joint effusion. Imp LUE cellulitis, improving slightly, with MSSA bacteremia. Rec Con't IV antibiotics, elevation, ROM exercises No surgical intervention is possible at this time Will follow
--- NOTE | 2017-02-27 14:25 | PN ---
Progress Note, Physician History of Present Illness: patient little bit sleepy in room wrist joint slightly better - Current Medication List Current Medications: Active Medications Acetaminophen (Tylenol -) 650 mg PO Q4H PRN PRN Reason: PAIN Allopurinol (Zyloprim -) 100 mg PO DAILY [facility] Last Admin: 02/27/17 10:28 Dose: 100 mg Atorvastatin Calcium (Lipitor -) 40 mg PO HS [facility] Last Admin: 02/26/17 21:33 Dose: 40 mg Cholecalciferol (Vitamin D3 -) 2,000 unit PO DAILY [facility] Last Admin: 02/27/17 10:27 Dose: 2,000 unit Ezetimibe (Zetia -) 10 mg PO DAILY [facility] Last Admin: 02/27/17 10:28 Dose: 10 mg Heparin Sodium (Porcine) (Heparin -) 5,000 unit SQ BID [facility] Sodium Chloride (Normal Saline -) 1,000 mls @ 100 mls/hr IV ASDIR [facility] Last Admin: 02/27/17 10:27 Dose: 100 mls/hr Cefazolin Sodium 500 mg/ (Dextrose) 50 mls @ 100 mls/hr IVPB Q12H [facility] Insulin Aspart (Novolog Vial Sliding Scale -) 1 vial SQ TIDAC [facility] PRN Reason: Protocol Last Admin: 02/27/17 12:05 Dose: 4 units Meclizine HCl (Antivert -) 25 mg PO TID PRN PRN Reason: DIZZINESS Last Admin: 02/27/17 10:29 Dose: 25 mg Metoprolol Succinate (Toprol Xl -) 12.5 mg PO DAILY [facility] Ondansetron HCl (Zofran Injection) 4 mg IVPB Q8H PRN PRN Reason: NAUSEA Last Admin: 02/27/17 10:29 Dose: 4 mg Oxycodone HCl (Roxicodone -) 10 mg PO Q4H PRN PRN Reason: PAIN Last Admin: 02/27/17 06:55 Dose: 10 mg Polyethylene Glycol (Miralax (For Daily Use) -) 17 gm PO DAILY [facility] Last Admin: 02/27/17 10:28 Dose: 17 gm Ranitidine HCl (Zantac -) 150 mg PO BID [facility] Last Admin: 02/27/17 10:28 Dose: 150 mg Vitamin E (Vitamin E -) 400 unit PO DAILY [facility] Last Admin: 02/27/17 10:28 Dose: 400 unit - Objective Vital Signs: Vital Signs Temperature 97.6 F 02/27/17 09:00 Pulse Rate 78 02/27/17 09:00 Respiratory Rate 18 02/27/17 09:00 Blood Pressure 115/49 02/27/17 09:00 O2 Sat by Pulse Oximetry (%) 95 02/27/17 09:00 Constitutional: Yes: No Distress, Calm Cardiovascular: Yes: Regular Rate and Rhythm Respiratory: Yes: Regular, CTA Bilaterally Gastrointestinal: Yes: Normal Bowel Sounds, Soft Musculoskeletal: Yes: Other Extremities: Yes: Other (right wrist tenderness slightly better) Neurological: Yes: Alert, Oriented Psychiatric: Yes: Alert Labs: CBC, BMP 02/27/17 07:35 02/27/17 07:35 - ....Imaging Cat Scan: Report Reviewed, Image Reviewed Ultrasound: Report Reviewed, Image Reviewed Assessment/Plan sepsis septic left wrist joint gm positive bacteremia fever tenderness patients diagnosis is staph septic arthritis of the left wrist patient is critical his creatinine has jumped up,i am worried if patient is developing a perinephric process such as abscess i am ordering a ct scan to see if there is any process going on crp is 24 patient is critical and i am worried if he is turning septic plan will start patient on nafcillin ct sczn ordered will repeat ct scan of the patients wrist repeat blood cx i am ordering if the repeat blood cx are positive patient will need CHEN if patient shows any signs of confusion patient will need ct scan of the brain very close watch on the patient i suggest patient should be in icu
--- NOTE | 2017-02-27 14:52 | PN ---
Progress Note (short form) - Note Progress Note: Renal Follow up for JOE Pt seen and examined at the bedside wrist and still swollen but slightly better as per the patient denies any sob, chest pain, + Nausea, no emesis oliguric overnight despite IVF Vital Signs Temperature 97.6 F 02/27/17 09:00 Pulse Rate 78 02/27/17 09:00 Respiratory Rate 18 02/27/17 09:00 Blood Pressure 115/49 02/27/17 09:00 O2 Sat by Pulse Oximetry (%) 95 02/27/17 09:00 Intake & Output 02/24/17 02/25/17 02/26/17 02/27/17 23:59 23:59 23:59 23:59 Intake Total 1920 1620 1055 Output Total 200 50 Balance 1720 1570 1055 Weight 217 lb 217 lb Gen: NAD CVS: RRR Lungs: CTA Abd: soft NT/ND Ext: No LE edema, left wrist and hand swollen, eyrthema improved CBC, BMP 02/27/17 07:35 02/27/17 07:35 Laboratory Tests 02/27/17 07:35 Calcium 7.9 L Phosphorus 4.3 Magnesium 2.0 Albumin 2.8 L Current Medications Acetaminophen (Tylenol -) 650 mg PO Q4H PRN PRN Reason: PAIN Allopurinol (Zyloprim -) 100 mg PO DAILY [facility] Last Admin: 02/27/17 10:28 Dose: 100 mg Atorvastatin Calcium (Lipitor -) 40 mg PO HS [facility] Last Admin: 02/26/17 21:33 Dose: 40 mg Cholecalciferol (Vitamin D3 -) 2,000 unit PO DAILY [facility] Last Admin: 02/27/17 10:27 Dose: 2,000 unit Ezetimibe (Zetia -) 10 mg PO DAILY [facility] Last Admin: 02/27/17 10:28 Dose: 10 mg Heparin Sodium (Porcine) (Heparin -) 5,000 unit SQ BID [facility] Sodium Chloride (Normal Saline -) 1,000 mls @ 100 mls/hr IV ASDIR [facility] Last Admin: 02/27/17 10:27 Dose: 100 mls/hr Nafcillin Sodium 2 gm/ (Dextrose) 100 mls @ 100 mls/hr IVPB Q4H-IV [facility] Insulin Aspart (Novolog Vial Sliding Scale -) 1 vial SQ TIDAC [facility] PRN Reason: Protocol Last Admin: 02/27/17 12:05 Dose: 4 units Meclizine HCl (Antivert -) 25 mg PO TID PRN PRN Reason: DIZZINESS Last Admin: 02/27/17 10:29 Dose: 25 mg Metoprolol Succinate (Toprol Xl -) 12.5 mg PO DAILY [facility] Ondansetron HCl (Zofran Injection) 4 mg IVPB Q8H PRN PRN Reason: NAUSEA Last Admin: 02/27/17 10:29 Dose: 4 mg Oxycodone HCl (Roxicodone -) 10 mg PO Q4H PRN PRN Reason: PAIN Last Admin: 02/27/17 06:55 Dose: 10 mg Polyethylene Glycol (Miralax (For Daily Use) -) 17 gm PO DAILY [facility] Last Admin: 02/27/17 10:28 Dose: 17 gm Ranitidine HCl (Zantac -) 150 mg PO BID [facility] Last Admin: 02/27/17 10:28 Dose: 150 mg Vitamin E (Vitamin E -) 400 unit PO DAILY [facility] Last Admin: 02/27/17 10:28 Dose: 400 unit A/P 71 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 #Acute Kidney Injury Likely secondar to ATN (NAIDs + Infection + ARB/Aldactone) Cr dk to 6.6 today which is not unexpected given clinical picture of ATN no acidosis, hyperkalemia, uremia or volume overload to warrant dialysis at this time Pt is oliguric and will give Trial OF IV lasix Urine studies show tubular range proteinuria, and no significnat RBCs to suggest GN will check serologic work up including FANNY, ANCA, C3, C4, CH50, Hepatitis to access for any risk factors for RPGN (less likely) US reviewed, normal appearing kidneys #Hyponatremia in setting of CKD likely related to mild volume expansion will given trial of IV lasix today #Cellulitis r/o Joint infection/Leukocytosis continue abx as per primary f/u cultures avoid IV contrast if further imaging is needed Trend VAnco levels Ortho and ID follow up Aubrey Acharya DO Problem List - Problems (1) Cellulitis Code(s): L03.90 - CELLULITIS, UNSPECIFIED Qualifiers: Site of cellulitis: extremity Site of cellulitis of extremity: upper extremity Laterality: left Qualified Code(s): L03.114 - Cellulitis of left upper limb (2) Acute renal failure (ARF) Code(s): N17.9 - ACUTE KIDNEY FAILURE, UNSPECIFIED (3) CAD (coronary artery disease) Code(s): I25.10 - ATHSCL HEART DISEASE OF [place] CORONARY ARTERY W/O ANG PCTRS (4) Hypertension Code(s): I10 - ESSENTIAL (PRIMARY) HYPERTENSION (5) Gout Code(s): M10.9 - GOUT, UNSPECIFIED (6) Leukocytosis Code(s): D72.829 - ELEVATED [place] BLOOD CELL COUNT, UNSPECIFIED (7) Hyponatremia Code(s): E87.1 - HYPO-OSMOLALITY AND HYPONATREMIA
[2017-02-27] MEDS: NAFCILLIN - 2 GM in DEXTROSE 5%-WATER - 100 ML IVPB SCH ×3 (15:53→21:11)
[2017-02-27] MEDS ORDERED: FUROSEMIDE 40 MG/4 ML INJECTABLE VIAL IVPUSH ONE (17:45)
--- NOTE | 2017-02-27 20:39 | CONSULT ---
Consult Consult Specialty:: Pulm/CCM Reason for Consultation:: Sepsis c/b GREGORIA - History of Present Illness Chief Complaint: Lt wrist edema and pain History of Present Illness: 71yom with PMHx CAD s/p CABG x2, gout on allopurinol, HTN, HLD, DMII, fatty liver and BPH who presents to PCP office with c/o Lt wrist erythema and pain and lethargy that has worsened despite treatment for gout with indocin and colchicine. On admission was found to have MSSA bacteremia and started on nafcillin and IVF. His course has been complicated by GREGORIA m/l in setting of sepsis and colchine and indocin use. Labs notable for WBC 12, Na 128, K 4.8, BUN /creat 66/6.1, lact 1.6, BNP 2658, uric acid 2.9. He is transferred to the ICU for monitoring d/t cardiac history and management. In the ICU VSS T 99.5, HR 76, BP 131/58 O2 sat 93% on room air. 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 (history of [place]'s) Cardio/Vascular: Yes: CAD, HTN, Hyperlipdemia Gastrointestinal: Yes: Other (fatty liver) Hepatobiliary: Yes: Cholelithiasis Renal/: Yes: Renal Inusuff Psych: Yes: Anxiety Musculoskeletal: Yes: Other (severe pain and swelling left wrist hand and forearm) Rheumatology: Yes: Gout Endocrine: Yes: Diabetes Mellitus - Past Surgical History Past Surgical History: Yes: CABG (left arm removal of artery for harvesting for coronary artery bypass) - Alcohol/Substance Use Hx Alcohol Use: No History of Substance Use: reports: None - Smoking History Smoking history: Former smoker Have you smoked in the past 12 months: No Aproximately how many cigarettes per day: 0 If you are a former smoker, when did you quit?: 30 years ago - Social History 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 History of Recent Travel: No Home Medications - Allergies Allergies/Adverse Reactions: Allergies Allergy/AdvReac Type Severity Reaction Status Date / Time No Known Allergies Allergy Verified 02/25/17 14:59 - Home Medications Home Medications: Ambulatory Orders Allopurinol [Zyloprim -] 300 mg PO DAILY 02/25/17 Atorvastatin Ca [Lipitor] 40 mg PO HS 02/25/17 Cholecalciferol (Vitamin D3) [Vitamin D3] 2,000 unit PO DAILY 02/25/17 Ezetimibe [Zetia] 10 mg PO DAILY 02/25/17 Losartan Potassium 50 mg PO BID 02/25/17 Meclizine HCl 25 mg PO TID PRN 02/25/17 Metformin HCl [Metformin HCl ER] 1,000 mg PO BID 02/25/17 Metoprolol Succinate [Toprol Xl -] 25 mg PO DAILY 02/25/17 Spironolactone [Aldactone] 50 mg PO DAILY 02/25/17 Vitamin E 400 unit PO DAILY 02/25/17 Family Disease History - Family Disease History Family Disease History: Heart Disease: Father, Other: Mother (possibly a former leukemia) Review of Systems - Review of Systems Constitutional: reports: Lethargy, Loss of Appetite Eyes: reports: No Symptoms HENT: reports: No Symptoms Neck: reports: No Symptoms Cardiovascular: reports: No Symptoms Respiratory: reports: No Symptoms Gastrointestinal: reports: Constipation Genitourinary: reports: Other (Oliguria) Musculoskeletal: reports: Joint Swelling (Lt wrist edema and pain 3/10 pain to 10/10 with movement; decreased ROM) Integumentary: reports: Erythema Neurological: reports: Other (Somnolent) Endocrine: reports: No Symptoms Psychiatric: reports: No Symptoms Physical Exam Vital Signs: Vital Signs Temperature 99.5 F 02/27/17 19:00 Pulse Rate 75 02/27/17 19:00 Respiratory Rate 18 02/27/17 19:00 Blood Pressure 125/66 02/27/17 19:00 O2 Sat by Pulse Oximetry (%) 95 02/27/17 09:00 Constitutional: Yes: No Distress, Calm, Obese Eyes: Yes: WNL HENT: Yes: WNL, Normocephalic Neck: Yes: WNL, Supple Cardiovascular: Yes: Regular Rate and Rhythm Respiratory: Yes: CTA Bilaterally Gastrointestinal: Yes: Soft, Abdomen, Obese Renal/: Yes: Oliguria Musculoskeletal: Yes: Joint Stiffness, Joint Swelling (Lt wrist edema and pain) Extremities: Yes: Erythema Edema: No Peripheral Pulses WNL: Yes Neurological: Yes: Other (Somnolent) ...Motor Strength: LUE (Lt wrist with decreased ROM due to swelling) Psychiatric: Yes: Oriented Labs: CBC, BMP 02/27/17 07:35 02/27/17 07:35 CBC,CMP WBC 12.0 K/mm3 (4.0-10.0) H 02/27/17 07:35 RBC 3.75 M/mm3 (4.00-5.60) L 02/27/17 07:35 Hgb 11.5 GM/dL (11.7-16.9) L 02/27/17 07:35 Hct 34.2 % (35.4-49) L 02/27/17 07:35 MCV 91.2 fl (80-96) 02/27/17 07:35 MCH 30.7 pg (25.7-33.7) 02/27/17 07:35 MCHC 33.6 g/dl (32.0-35.9) 02/27/17 07:35 RDW 13.9 % (11.9-15.9) 02/27/17 07:35 Plt Count 150 K/MM3 (134-434) 02/27/17 07:35 MPV 8.5 fl (7.5-11.1) 02/27/17 07:35 Neutrophils % 71.1 % (42.8-82.8) 02/27/17 07:35 Lymphocytes % 12.8 % (8-40) D 02/27/17 07:35 Monocytes % 15.3 % (3.8-10.2) H 02/27/17 07:35 Eosinophils % 0.6 % (0-4.5) D 02/27/17 07:35 Basophils % 0.2 % (0-2.0) 02/27/17 07:35 ESR 85 mm/hr (0-20) H 02/27/17 09:00 Sodium 128 mmol/L (136-145) L 02/27/17 07:35 Potassium 4.8 mmol/L (3.5-5.1) 02/27/17 07:35 Chloride 92 mmol/L (98-107) L 02/27/17 07:35 Carbon Dioxide 21 mmol/L (21-32) 02/27/17 07:35 Anion Gap 15 (8-16) 02/27/17 07:35 BUN 66 mg/dL (7-18) H D 02/27/17 07:35 Creatinine 6.1 mg/dL (0.7-1.3) H D 02/27/17 07:35 Creat Clearance w eGFR 9.17 (>60) 02/27/17 07:35 POC Glucometer 195 UNITS (()) 02/27/17 17:51 Random Glucose 177 mg/dL (74-106) H 02/27/17 07:35 Hemoglobin A1c % 8.6 % (4.8-6.0) H D 02/27/17 09:00 Lactic Acid 1.6 mmol/L (0.4-2.0) 02/26/17 07:00 Uric Acid 2.9 mg/dL (2.6-7.2) 02/25/17 16:26 Calcium 7.9 mg/dL (8.5-10.1) L 02/27/17 07:35 Phosphorus 4.3 mg/dL (2.5-4.9) 02/27/17 07:35 Magnesium 2.0 mg/dL (1.8-2.4) 02/27/17 07:35 Total Bilirubin 1.1 mg/dL (0.2-1.0) H 02/27/17 07:35 AST 30 U/L (15-37) D 02/27/17 07:35 ALT 30 U/L (12-78) 02/27/17 07:35 Alkaline Phosphatase 122 U/L (45-117) H D 02/27/17 07:35 C-Reactive Protein 24.1 MG/DL (0.00-0.3) H D 02/27/17 07:35 B-Natriuretic Peptide 2658.19 pg/ml (5-125) H 02/26/17 06:00 Total Protein 6.2 g/dl (6.4-8.2) L 02/27/17 07:35 Albumin 2.8 g/dl (3.4-5.0) L 02/27/17 07:35 Assessment/Plan 71yom PMHx CAD s/p CABG x2, gout on allopurinol, HTN, HLD, DMII, fatty liver and BPH admitted with cellulitis of the lt wrist found to have MSSA bacteremia ccb Gregoria in setting of sepsis +/- colchicine and indocin use. Plan: ID: MSSA bacteremia with Lt wrist cellulitis -ID consult -Cont Nafcillin -daily Blood cxls for clearance -trend lactate -Trend temp and WBC CV: Sepsis; Hx CAD s/p CABG x2 -HD monitoring -Cont metoprolol with hold parameters -Cont statins -IVF -Trend BNP,Trop -F/u TTE Renal: GREGORIA m/l ATN in setting of sepsis +/- colchicine and indocin use; hyponatremia -Nephrology consult -monitor BMP and UOP -IVF 100cc/h -Renal dose meds -Replete electrolytes Ortho: Lt wrist cellulitis; Hx gout -Cont allopurinol at renal dose 100mg/d -Elevation and warm compress to lt wrist -Lt wrist imaging -Pain manament Endo: MII Hgb AC 8.6 -Fingersticks -insulin SS Proph Hep sq;
[2017-02-27] MEDS: HEPARIN NA (PORCINE) 5,000 UNITS/ML 1ML VIAL SQ SCH (21:11)
[2017-02-27] MEDS: ATORVASTATIN CA 40 MG TABLET (FP) PO SCH (21:12)
--- NOTE | 2017-02-27 21:15 | CONSULT ---
Consultation: CONSULT REQUEST: We have been asked to medically evaluate this patient for sepsis 2/2 cellulitis/septic joint in L hand. HISTORY OF PRESENT ILLNESS: Pt is 61 yo man w/ pmh of CAD s/p CABG x2, gout (on allopurinol), DMT2, HTN, fatty liver who was initially admitted for septic joint/cellulitis of L hand, now with suspected sepsis and JOE, transferred from floors for further management in ICU. Four days prior to admission, pt noted pain and swelling in L hand. Initially treated for gout flare up with colchicine and Indocin w/ no resolution, later seen by PCP Dr. Boyd and sent to ED for suspicion of cellulitis. Pt endorses fever and chills the night before admission and was noted to be lethargic by . Pt denies any CP, SOB, cough, congestion, abdominal pain, dysuria, flank pain, diarrhea or other rashes, myalgias/ arthralgias. Pt endorses mild CAVAZOS, progressive fatigue and unsteady gait since admission which he attributes to being bed-bound. Pt endorses two prior gout episodes "years ago", which he states occurred in the ankle and one of his toes. He takes allopurinol for gout ppx and has been consistent w/ his medication compliance. Since admission REVIEW OF SYSTEMS: CONSTITUTIONAL: fevers, chills, generalized weakness, weight gain of 13 lbs since admission Absent: diaphoresis, malaise, loss of appetite HEENT: Absent: rhinorrhea, nasal congestion, throat pain, throat swelling, ear pain, eye pain, visual changes CARDIOVASCULAR: Absent: chest pain, syncope, palpitations, irregular heart rate, lightheadedness , peripheral edema RESPIRATORY: Absent: cough, shortness of breath, dyspnea with exertion, orthopnea, hemoptysis GASTROINTESTINAL: Constipated since admission Absent: abdominal pain, abdominal distension, nausea, vomiting, diarrhea, melena , hematochezia GENITOURINARY: Absent: dysuria, frequency, urgency, hesitancy, hematuria, flank pain MUSCULOSKELETAL: Joint tenderness, swelling of dorsal aspect of L hand and wrist Absent: myalgia, back pain, neck pain SKIN: Mild pruritus of anterior chest, erythema of L dorsal hand/wrist Absent: pallor HEMATOLOGIC/IMMUNOLOGIC: Absent: easy bleeding, easy bruising, lymphadenopathy ENDOCRINE: Absent: unexplained weight gain, unexplained weight loss, heat intolerance, cold intolerance NEUROLOGIC: unsteady gait, lethargy, CAVAZOS Absent: focal weakness or paresthesias, dizziness, seizure, bladder or bowel incontinence PHYSICAL EXAMINATION Vital Signs - 24 hr 02/26/17 02/26/17 02/27/17 21:00 21:41 09:00 Temperature 98.2 F 97.6 F Pulse Rate 89 78 Respiratory 18 18 Rate Blood Pressure 118/63 115/49 O2 Sat by Pulse 96 95 Oximetry (%) 02/27/17 02/27/17 15:23 19:00 Temperature 98.5 F 99.5 F Pulse Rate 74 75 Respiratory 18 18 Rate Blood Pressure 118/61 125/66 O2 Sat by Pulse Oximetry (%) GENERAL: Middle-aged man, awake, alert, and fully oriented, drowsy, in no acute distress, resting comfortably in bed HEAD: Normal with no signs of trauma. Alopecia EYES: Pupils small, round and minimally reactive to light, extraocular movements intact, sclera anicteric, conjunctiva clear. No lid lag. EARS, NOSE, THROAT: Ears normal, nares patent, oropharynx clear without exudates. Moist mucous membranes. NECK: Normal range of motion, supple without lymphadenopathy, JVD, or masses. LUNGS: Breath sounds equal, clear to auscultation bilaterally. No wheezes, and no crackles. No accessory muscle use. HEART: Regular rate and rhythm, normal S1 and S2 without murmur, rub or gallop. ABDOMEN: Soft, nontender, not distended, normoactive bowel sounds, no guarding, no rebound, no masses. No hepatomegaly or splenomegaly. MUSCULOSKELETAL: Severely restricted motion of L wrist joint, exquisitely tender to palpation. Mild erythema of dorsal aspect of left hand with significant edema. Normal range of motion at all other joints. No bony deformities or tenderness. No CVA tenderness. UPPER EXTREMITIES: [place] and prashanth nodes noted bilaterally, more prominent on R hand. 2+ pulses, warm, well-perfused. No cyanosis. No clubbing. Cap refill <2 seconds. No peripheral edema. LOWER EXTREMITIES: 2+ pulses, warm, well-perfused. No calf tenderness. No peripheral edema. NEUROLOGICAL: Cranial nerves II-XII intact. Normal speech. Gait not assessed. PSYCHIATRIC: Cooperative. Good eye contact. Appropriate mood and affect. Laboratory Results - last 24 hr CBC, BMP 02/27/17 07:35 02/27/17 07:35 02/26/17 02/27/17 02/27/17 12:55 06:57 07:35 WBC RBC Hgb Hct MCV MCH MCHC RDW Plt Count MPV Neutrophils % Lymphocytes % Monocytes % Eosinophils % Basophils % ESR Sodium Potassium Chloride Carbon Dioxide Anion Gap BUN Creatinine Creat Clearance w eGFR POC Glucometer 185 Random Glucose Hemoglobin A1c % Calcium Phosphorus Magnesium Total Bilirubin AST ALT Alkaline Phosphatase C-Reactive Protein Total Protein Albumin U Random Total Protein 336 H Ur Random Sodium 34 Ur Random Urea Nitrogn 303 Urine Creatinine 135.0 Random Vancomycin 8.282 02/27/17 02/27/17 02/27/17 07:35 07:35 07:35 WBC 12.0 H RBC 3.75 L Hgb 11.5 L Hct 34.2 L MCV 91.2 MCH 30.7 MCHC 33.6 RDW 13.9 Plt Count 150 MPV 8.5 Neutrophils % 71.1 Lymphocytes % 12.8 D Monocytes % 15.3 H Eosinophils % 0.6 D Basophils % 0.2 ESR Sodium 128 L Potassium 4.8 Chloride 92 L Carbon Dioxide 21 Anion Gap 15 BUN 66 H D Creatinine 6.1 H D Creat Clearance w eGFR 9.17 POC Glucometer Random Glucose 177 H Hemoglobin A1c % Calcium 7.9 L Phosphorus 4.3 Magnesium 2.0 Total Bilirubin 1.1 H AST 30 D ALT 30 Alkaline Phosphatase 122 H D C-Reactive Protein 24.1 H D Total Protein 6.2 L Albumin 2.8 L U Random Total Protein Ur Random Sodium Ur Random Urea Nitrogn Urine Creatinine Random Vancomycin 02/27/17 02/27/17 02/27/17 09:00 09:00 12:00 WBC RBC Hgb Hct MCV MCH MCHC RDW Plt Count MPV Neutrophils % Lymphocytes % Monocytes % Eosinophils % Basophils % ESR 85 H Sodium Potassium Chloride Carbon Dioxide Anion Gap BUN Creatinine Creat Clearance w eGFR POC Glucometer 215 Random Glucose Hemoglobin A1c % 8.6 H D Calcium Phosphorus Magnesium Total Bilirubin AST ALT Alkaline Phosphatase C-Reactive Protein Total Protein Albumin U Random Total Protein Ur Random Sodium Ur Random Urea Nitrogn Urine Creatinine Random Vancomycin 02/27/17 17:51 WBC RBC Hgb Hct MCV MCH MCHC RDW Plt Count MPV Neutrophils % Lymphocytes % Monocytes % Eosinophils % Basophils % ESR Sodium Potassium Chloride Carbon Dioxide Anion Gap BUN Creatinine Creat Clearance w eGFR POC Glucometer 195 Random Glucose Hemoglobin A1c % Calcium Phosphorus Magnesium Total Bilirubin AST ALT Alkaline Phosphatase C-Reactive Protein Total Protein Albumin U Random Total Protein Ur Random Sodium Ur Random Urea Nitrogn Urine Creatinine Random Vancomycin Microbiology 02/25/17 16:48 Urine - Urine Clean Catch Urine Culture - Final NO GROWTH OBTAINED 02/25/17 15:35 Blood - Peripheral Venous Blood Culture - Preliminary Presumptive Mssa (Pbp2a Neg) 02/25/17 15:30 Blood - Peripheral Venous Blood Culture - Preliminary Presumptive Mssa (Pbp2a Neg) Active Medications Generic Name Dose Route Start Last Admin Trade Name Freq PRN Reason Stop Dose Admin Acetaminophen 650 mg 02/26/17 17:05 Tylenol - PO Q4H PRN PAIN Allopurinol 100 mg 02/26/17 10:58 02/27/17 10:28 Zyloprim - PO 100 mg DAILY PAULINA Administration Atorvastatin Calcium 40 mg 02/25/17 22:00 02/26/17 21:33 Lipitor - PO 40 mg HS PAULINA Administration Cholecalciferol 2,000 unit 02/26/17 10:00 02/27/17 10:27 Vitamin D3 - PO 2,000 unit DAILY PAULINA Administration Ezetimibe 10 mg 02/26/17 10:00 02/27/17 10:28 Zetia - PO 10 mg DAILY PAULINA Administration Heparin Sodium (Porcine) 5,000 unit 02/27/17 22:00 Heparin - SQ BID PAULINA Sodium Chloride 1,000 mls @ 100 mls/hr 02/27/17 09:52 02/27/17 10:27 Normal Saline - IV 100 mls/hr ASDIR PAULINA Administration Nafcillin Sodium 2 gm/ 100 mls @ 100 mls/hr 02/27/17 15:00 02/27/17 18:30 Dextrose IVPB Not Given Q4H-IV PAULINA Insulin Aspart 1 vial 02/27/17 10:04 02/27/17 17:51 Novolog Vial Sliding Scale - SQ 2 units TIDAC PAULINA Administration Protocol Meclizine HCl 25 mg 02/25/17 18:39 02/27/17 10:29 Antivert - PO 25 mg TID PRN Administration DIZZINESS Metoprolol Succinate 12.5 mg 02/27/17 10:59 Toprol Xl - PO DAILY PAULINA Ondansetron HCl 4 mg 02/27/17 09:51 02/27/17 10:29 Zofran Injection IVPB 4 mg Q8H PRN Administration NAUSEA Oxycodone HCl 10 mg 02/26/17 17:05 02/27/17 16:59 Roxicodone - PO 10 mg Q4H PRN Administration PAIN Polyethylene Glycol 17 gm 02/27/17 10:15 02/27/17 10:28 Miralax (For Daily Use) - PO 17 gm DAILY PAULINA Administration Ranitidine HCl 150 mg 02/25/17 22:00 02/27/17 10:28 Zantac - PO 150 mg BID PAULINA Administration Vitamin E 400 unit 02/26/17 10:00 02/27/17 10:28 Vitamin E - PO 400 unit DAILY PAULINA Administration CXR (02/25) - No evidence of pleural effusions, pneumothorax or consolidations. No active pulmonary disease. EXK (02/24) - NSR, rate of 80, normal axis, no st elevation or [place] prolongation ASSESSMENT/PLAN: Dispo: We will continue to follow the patient. Thank you for this consultative opportunity.
[2017-02-27] MEDS: ACETAMINOPHEN 325 MG TABLET (FP) PO PRN (23:27)
[2017-02-28 00:27] LABS: ALBUMIN 2.1 g/dl (3.4-5.0); ALK PHOS 104 U/L (45-117); ANION GAP 14 (8-16); BILIRUBIN,TOTAL 1.2 mg/dL (0.2-1.0); CO2 17 mmol/L (21-32); CREATININE 5.7 mg/dL (0.7-1.3); GLUCOSE,RANDOM 128 mg/dL (74-106); SGOT/AST 33 U/L (15-37); SGPT/ALT 27 U/L (12-78); TOT PROT 4.7 g/dl (6.4-8.2)
[2017-02-28 00:28] LABS: CALCIUM 6.1 mg/dL (8.5-10.1)
[2017-02-28] MEDS ORDERED: CALCIUM GLUCONATE 10% - 1,000 MG/10 ML VIAL IVPB ONE ×3 (00:34→09:00)
[2017-02-28] MEDS: NAFCILLIN - 2 GM in DEXTROSE 5%-WATER - 100 ML IVPB SCH ×6 (01:20→22:00)
[2017-02-28] MEDS: oxyCODONE HCL 5 MG TABLET PO PRN ×3 (01:23→20:52)
[2017-02-28] MEDS ORDERED: CALCIUM GLUCONATE 10% - 1,000 MG/10 ML VIAL ONE (01:25)
[2017-02-28 06:07] LABS: BASOPHIL 0.2 % (0-2.0); EOSINOPHIL 0.8 % (0-4.5); MCH 31.3 pg (25.7-33.7); MCHC 34.3 g/dl (32.0-35.9); MEAN CELL VOLUME 91.5 fl (80-96); MEAN PLT VOLUME 9.1 fl (7.5-11.1); NEUTROPHILS 78.5 % (42.8-82.8); PLATELET COUNT 173 K/MM3 (134-434); RDW 14.2 % (11.9-15.9)
[2017-02-28] MEDS: INSULIN SLIDING SCALE (NOVOLOG) 1 VIAL SQ SCH ×3 (06:21→17:39)
[2017-02-28 06:38] LABS: ALBUMIN 2.4 g/dl (3.4-5.0); ALK PHOS 131 U/L (45-117); ANION GAP 17 (8-16); BILIRUBIN,TOTAL 2.2 mg/dL (0.2-1.0); CALCIUM 7.5 mg/dL (8.5-10.1); CO2 17 mmol/L (21-32); GLUCOSE,RANDOM 152 mg/dL (74-106); PHOSPHOROUS 5.8 mg/dL (2.5-4.9); SGOT/AST 37 U/L (15-37); SGPT/ALT 32 U/L (12-78); TOT PROT 5.7 g/dl (6.4-8.2)
[2017-02-28 06:51] LABS: CREATININE 7.5 mg/dL (0.7-1.3)
[2017-02-28] MEDS ORDERED: SODIUM CHLORIDE 500 ML IV ONE (07:05)
[2017-02-28] MEDS ORDERED: SODIUM POLYSTYRENE SULFONATE 15 GM/60 ML BOTTLE PO ONE (07:15)
--- NOTE | 2017-02-28 07:54 | PN ---
Physical Exam: SUBJECTIVE: Patient seen and examined OBJECTIVE: Vital Signs Period Temp Pulse Resp BP Sys/Resendez Pulse Ox Last 24 Hr 97.6 F-100 F 74-91 11-19 89-143/41-66 95-97 GENERAL: The patient is awake, alert, and fully oriented, in no acute distress. HEAD: Normal with no signs of trauma. EYES: PERRL, extraocular movements intact, sclera anicteric, conjunctiva clear. No ptosis. ENT: Ears normal, nares patent, oropharynx clear without exudates, moist mucous membranes. NECK: Trachea midline, full range of motion, supple. LUNGS: Breath sounds equal, clear to auscultation bilaterally, no wheezes, no crackles, no accessory muscle use. HEART: Regular rate and rhythm, S1, S2 without murmur, rub or gallop. ABDOMEN: Soft, nontender, nondistended, normoactive bowel sounds, no guarding, no rebound, no hepatosplenomegaly, no masses. EXTREMITIES: 2+ pulses, warm, well-perfused, no edema. NEUROLOGICAL: Cranial nerves II through XII grossly intact. Normal speech, gait not observed. PSYCH: Normal mood, normal affect. SKIN: Warm, dry, normal turgor, no rashes or lesions noted Laboratory Results - last 24 hr 02/27/17 02/27/17 02/27/17 07:35 07:35 07:35 WBC 12.0 H RBC 3.75 L Hgb 11.5 L Hct 34.2 L MCV 91.2 MCH 30.7 MCHC 33.6 RDW 13.9 Plt Count 150 MPV 8.5 Neutrophils % 71.1 Lymphocytes % 12.8 D Monocytes % 15.3 H Eosinophils % 0.6 D Basophils % 0.2 ESR Sodium 128 L Potassium 4.8 Chloride 92 L Carbon Dioxide 21 Anion Gap 15 BUN 66 H D Creatinine 6.1 H D Creat Clearance w eGFR 9.17 POC Glucometer Random Glucose 177 H Hemoglobin A1c % Calcium 7.9 L Phosphorus 4.3 Magnesium 2.0 Total Bilirubin 1.1 H AST 30 D ALT 30 Alkaline Phosphatase 122 H D C-Reactive Protein Total Protein 6.2 L Albumin 2.8 L Random Vancomycin 8.282 Hepatitis A IgM Ab Hep Bs Antigen Hep B Core IgM Ab Hepatitis C Ab (EIA) 02/27/17 02/27/17 02/27/17 07:35 09:00 09:00 WBC RBC Hgb Hct MCV MCH MCHC RDW Plt Count MPV Neutrophils % Lymphocytes % Monocytes % Eosinophils % Basophils % ESR 85 H Sodium Potassium Chloride Carbon Dioxide Anion Gap BUN Creatinine Creat Clearance w eGFR POC Glucometer Random Glucose Hemoglobin A1c % 8.6 H D Calcium Phosphorus Magnesium Total Bilirubin AST ALT Alkaline Phosphatase C-Reactive Protein 24.1 H D Total Protein Albumin Random Vancomycin Hepatitis A IgM Ab Hep Bs Antigen Hep B Core IgM Ab Hepatitis C Ab (EIA) 02/27/17 02/27/17 02/27/17 12:00 12:45 17:51 WBC RBC Hgb Hct MCV MCH MCHC RDW Plt Count MPV Neutrophils % Lymphocytes % Monocytes % Eosinophils % Basophils % ESR Sodium Potassium Chloride Carbon Dioxide Anion Gap BUN Creatinine Creat Clearance w eGFR POC Glucometer 215 195 Random Glucose Hemoglobin A1c % Calcium Phosphorus Magnesium Total Bilirubin AST ALT Alkaline Phosphatase C-Reactive Protein Total Protein Albumin Random Vancomycin Hepatitis A IgM Ab Negative Hep Bs Antigen Negative Hep B Core IgM Ab Negative Hepatitis C Ab (EIA) <0.1 02/27/17 02/28/17 02/28/17 23:25 05:15 05:15 WBC 13.0 H RBC 3.64 L Hgb 11.4 L Hct 33.3 L MCV 91.5 MCH 31.3 MCHC 34.3 RDW 14.2 Plt Count 173 MPV 9.1 Neutrophils % 78.5 Lymphocytes % 8.0 D Monocytes % 12.5 H Eosinophils % 0.8 Basophils % 0.2 ESR Sodium 132 L 125 L Potassium 4.4 6.3 H* D Chloride 101 91 L Carbon Dioxide 17 L 17 L Anion Gap 14 17 H BUN 66 H 76 H Creatinine 5.7 H 7.5 H* D Creat Clearance w eGFR 9.91 7.22 POC Glucometer Random Glucose 128 H D 152 H Hemoglobin A1c % Calcium 6.1 L* D 7.5 L D Phosphorus 5.8 H D Magnesium 2.0 Total Bilirubin 1.2 H 2.2 H D AST 33 37 ALT 27 32 Alkaline Phosphatase 104 131 H D C-Reactive Protein 24.0 H D Total Protein 4.7 L D 5.7 L D Albumin 2.1 L D 2.4 L Random Vancomycin Hepatitis A IgM Ab Hep Bs Antigen Hep B Core IgM Ab Hepatitis C Ab (EIA) Active Medications Generic Name Dose Route Start Last Admin Trade Name Freq PRN Reason Stop Dose Admin Acetaminophen 650 mg 02/26/17 17:05 02/27/17 23:27 Tylenol - PO 650 mg Q4H PRN Administration PAIN Allopurinol 100 mg 02/26/17 10:58 02/27/17 10:28 Zyloprim - PO 100 mg DAILY PAULINA Administration Atorvastatin Calcium 40 mg 02/25/17 22:00 02/27/17 21:12 Lipitor - PO 40 mg HS PAULINA Administration Cholecalciferol 2,000 unit 02/26/17 10:00 02/27/17 10:27 Vitamin D3 - PO 2,000 unit DAILY PAULINA Administration Ezetimibe 10 mg 02/26/17 10:00 02/27/17 10:28 Zetia - PO 10 mg DAILY PAULINA Administration Heparin Sodium (Porcine) 5,000 unit 02/27/17 22:00 02/27/17 21:11 Heparin - SQ 5,000 unit BID PAULINA Administration Sodium Chloride 1,000 mls @ 100 mls/hr 02/27/17 09:52 02/27/17 10:27 Normal Saline - IV 100 mls/hr ASDIR PAULINA Administration Nafcillin Sodium 2 gm/ 100 mls @ 100 mls/hr 02/27/17 15:00 02/28/17 05:20 Dextrose IVPB 100 mls/hr Q4H-IV PAULINA Administration Insulin Aspart 1 vial 02/27/17 10:04 02/28/17 06:21 Novolog Vial Sliding Scale - SQ 2 units TIDAC PAULINA Administration Protocol Meclizine HCl 25 mg 02/25/17 18:39 02/27/17 10:29 Antivert - PO 25 mg TID PRN Administration DIZZINESS Metoprolol Succinate 12.5 mg 02/27/17 10:59 Toprol Xl - PO DAILY PAULINA Ondansetron HCl 4 mg 02/27/17 09:51 02/27/17 10:29 Zofran Injection IVPB 4 mg Q8H PRN Administration NAUSEA Oxycodone HCl 10 mg 02/26/17 17:05 02/28/17 01:23 Roxicodone - PO 10 mg Q4H PRN Administration PAIN Polyethylene Glycol 17 gm 02/27/17 10:15 02/27/17 10:28 Miralax (For Daily Use) - PO 17 gm DAILY PAULINA Administration Ranitidine HCl 150 mg 02/25/17 22:00 02/27/17 21:12 Zantac - PO 150 mg BID PAULINA Administration Vitamin E 400 unit 02/26/17 10:00 02/27/17 10:28 Vitamin E - PO 400 unit DAILY PAULINA Administration ASSESSMENT/PLAN 71 year-old male with a PMH significant for HTN, HLD, CAD s/p CABG x2, gout, IDDM, BPH. Admitted for LUE cellulitis. Hospital course complicated by acute kidney injury. Sepsis secondary to LUE cellulitis and MSSA bacteremia --mild persistent leukocytosis, afebrile >72 hours --02/26 CT negative for abscess/collection --continue Nafcillin --ID following Acute kidney injury, multifactorial Hyperkalemia Hyponatremia Metabolic acidosis --most likely ATN in setting of sepsis, colchicine, indocin use --Cr up to 7.5 today, failed lasix trial yesterday --serum bicarb 17; ABG 7.23/35/101/14.5/97% on 2L --hyper K treated with calcium, insulin, glucose, kayexealte overnight and again this morning, K improved 6.3-->5.5 --IV fluids --renally dose meds --will need trialysis cath, [employer] DVT prophylaxis: subq heparin Visit type - Emergency Visit Emergency Visit: Yes ED Registration Date: 02/25/17 Care time: The patient presented to the Emergency Department on the above date and was hospitalized for further evaluation of their emergent condition. - New Patient This patient is new to me today: Yes Date on this admission: 02/28/17 - Critical Care Critical Care patient: Yes Total Critical Care Time (in minutes): 35 Critical Care Statement: The care of this patient involved high complexity decision making to prevent further life threatening deterioration of the patient 's condition and/or to evaluate & treat vital organ system(s) failure or risk of failure.
--- NOTE | 2017-02-28 08:18 | PN ---
Progress Note (short form) - Note Progress Note: Renal Follow up for JOE Pt seen and examined in the ICU awake and alert, but drowsy no significant urine output BP low this am AM labs showed hyperkalemia and worsening renal function No Nausea/Vomiting no SOB or chest pain no rash Vital Signs Temperature 98.6 F 02/28/17 06:00 Pulse Rate 82 02/28/17 07:00 Respiratory Rate 18 02/28/17 07:00 Blood Pressure 89/41 02/28/17 07:00 O2 Sat by Pulse Oximetry (%) 97 02/27/17 21:00 Intake & Output 02/25/17 02/26/17 02/27/17 02/28/17 23:59 23:59 23:59 23:59 Intake Total 1920 1620 2985 1440 Output Total 200 50 Balance 1720 1570 2985 1440 Weight 217 lb 217 lb Gen: NAD CVS: RRR Lungs: CTA Abd: soft NT/ND Ext: No LE edema, left wrist and hand swollen, eyrthema improved CBC, BMP 02/28/17 05:15 02/28/17 05:15 Laboratory Tests 02/28/17 05:15 Calcium 7.5 L D Phosphorus 5.8 H D Magnesium 2.0 Albumin 2.4 L Current Medications Acetaminophen (Tylenol -) 650 mg PO Q4H PRN PRN Reason: PAIN Last Admin: 02/27/17 23:27 Dose: 650 mg Allopurinol (Zyloprim -) 100 mg PO DAILY [facility] Last Admin: 02/27/17 10:28 Dose: 100 mg Atorvastatin Calcium (Lipitor -) 40 mg PO HS [facility] Last Admin: 02/27/17 21:12 Dose: 40 mg Cholecalciferol (Vitamin D3 -) 2,000 unit PO DAILY [facility] Last Admin: 02/27/17 10:27 Dose: 2,000 unit Ezetimibe (Zetia -) 10 mg PO DAILY [facility] Last Admin: 02/27/17 10:28 Dose: 10 mg Heparin Sodium (Porcine) (Heparin -) 5,000 unit SQ BID [facility] Last Admin: 02/27/17 21:11 Dose: 5,000 unit Sodium Chloride (Normal Saline -) 1,000 mls @ 100 mls/hr IV ASDIR [facility] Last Admin: 02/27/17 10:27 Dose: 100 mls/hr Nafcillin Sodium 2 gm/ (Dextrose) 100 mls @ 100 mls/hr IVPB Q4H-IV [facility] Last Admin: 02/28/17 05:20 Dose: 100 mls/hr Insulin Aspart (Novolog Vial Sliding Scale -) 1 vial SQ TIDAC [facility] PRN Reason: Protocol Last Admin: 02/28/17 06:21 Dose: 2 units Meclizine HCl (Antivert -) 25 mg PO TID PRN PRN Reason: DIZZINESS Last Admin: 02/27/17 10:29 Dose: 25 mg Metoprolol Succinate (Toprol Xl -) 12.5 mg PO DAILY [facility] Ondansetron HCl (Zofran Injection) 4 mg IVPB Q8H PRN PRN Reason: NAUSEA Last Admin: 02/27/17 10:29 Dose: 4 mg Oxycodone HCl (Roxicodone -) 10 mg PO Q4H PRN PRN Reason: PAIN Last Admin: 02/28/17 01:23 Dose: 10 mg Polyethylene Glycol (Miralax (For Daily Use) -) 17 gm PO DAILY [facility] Last Admin: 02/27/17 10:28 Dose: 17 gm Ranitidine HCl (Zantac -) 150 mg PO BID [facility] Last Admin: 02/27/17 21:12 Dose: 150 mg Vitamin E (Vitamin E -) 400 unit PO DAILY [facility] Last Admin: 02/27/17 10:28 Dose: 400 unit A/P 71 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 risks and benifits of dialysis were explained to the patient and and are agreeable if needed Dose all meds for CrCl less then 10 #Hyponatremia in setting of CKD Continues to downtrend with IVF and anuric state pt required IVF at this time b/c of sepsis/marignal BP #Cellulitis r/o Joint infection/Leukocytosis continue management as per ID and John Acharya DO Problem List - Problems (1) Cellulitis Code(s): L03.90 - CELLULITIS, UNSPECIFIED Qualifiers: Qualified Code(s): L03.114 - Cellulitis of left upper limb (2) Acute renal failure (ARF) Code(s): N17.9 - ACUTE KIDNEY FAILURE, UNSPECIFIED (3) CAD (coronary artery disease) Code(s): I25.10 - ATHSCL HEART DISEASE OF [place] CORONARY ARTERY W/O ANG PCTRS (4) Hypertension Code(s): I10 - ESSENTIAL (PRIMARY) HYPERTENSION (5) Gout Code(s): M10.9 - GOUT, UNSPECIFIED (6) Leukocytosis Code(s): D72.829 - ELEVATED WHITE BLOOD CELL COUNT, UNSPECIFIED (7) Hyponatremia Code(s): E87.1 - HYPO-OSMOLALITY AND HYPONATREMIA
[2017-02-28] MEDS ORDERED: DEXTROSE 50%-WATER - 25 GM/50 ML VIAL IVPUSH ONE (08:19)
[2017-02-28] MEDS ORDERED: INSULIN REGULAR HUMAN 100 UNITS/ML *VIAL IVPUSH ONE (08:19)
[2017-02-28] MEDS ORDERED: CALCIUM CHLORIDE 1 GM/10 ML *DISP.SYRIN ONE (08:32)
[2017-02-28] MEDS ORDERED: DEXTROSE 50%-WATER 25 GM/50 ML DISP.SYRIN ONE (08:32)
[2017-02-28 08:39] LABS: ARTERIAL BLD GAS O2 SATURATION 97.3 % (90-98.9); ARTERIAL BLOOD GAS BASE EXCESS -11.8 meq/l (-2-2)
[2017-02-28 08:40] LABS: ALLENS TEST POSITIVE; ART PUNCT SITE RIGHT BRACHIAL; LPM/O2% 2L; PT. ON O2? YES; TYPE OF O2 N/C
[2017-02-28 08:41] LABS: ARTERIAL BLOOD GAS pH 7.23 (7.35-7.45)
[2017-02-28 08:42] LABS: ARTERIAL BLOOD GAS HCO3 14.5 meq/L (22-26)
--- NOTE | 2017-02-28 09:15 | EKG ---
Test Reason : Blood Pressure : / mmHG Vent. Rate : 080 BPM Atrial Rate : 080 BPM P-R Int : 184 ms QRS Dur : 090 ms QT Int : 386 ms P-R-T Axes : 049 027 029 degrees QTc Int : 445 ms NORMAL SINUS RHYTHM INFERIOR INFARCT , AGE UNDETERMINED CANNOT RULE OUT ANTERIOR INFARCT , AGE UNDETERMINED NONSPECIFIC ST ABNORMALITY ABNORMAL ECG WHEN COMPARED WITH ECG OF 25-FEB-2017 15:56, NO SIGNIFICANT CHANGE WAS FOUND Confirmed by MD CHRIS, MANSOOR ([id number]) on 02/28/2017 9:14:56 AM Referred By: DURAN KINNEY Confirmed By:MANSOOR PEREZ MD
--- NOTE | 2017-02-28 09:20 | PN ---
Progress Note (short form) - Note Progress Note: Seen and examined in the ICU SCr and potassium worse this AM decreased u/o, failed lasix trial Left hand with improved swelling CT w/o evidence of abscess Seen by Renal EKG w/ mild t-wave abnormalities Denies: CAVAZOS/CP/nausea/palp Current Medications Acetaminophen (Tylenol -) 650 mg PO Q4H PRN PRN Reason: PAIN Last Admin: 02/27/17 23:27 Dose: 650 mg Allopurinol (Zyloprim -) 100 mg PO DAILY [facility] Last Admin: 02/27/17 10:28 Dose: 100 mg Atorvastatin Calcium (Lipitor -) 40 mg PO HS [facility] Last Admin: 02/27/17 21:12 Dose: 40 mg Cholecalciferol (Vitamin D3 -) 2,000 unit PO DAILY [facility] Last Admin: 02/27/17 10:27 Dose: 2,000 unit Ezetimibe (Zetia -) 10 mg PO DAILY [facility] Last Admin: 02/27/17 10:28 Dose: 10 mg Heparin Sodium (Porcine) (Heparin -) 5,000 unit SQ BID [facility] Last Admin: 02/27/17 21:11 Dose: 5,000 unit Sodium Chloride (Normal Saline -) 1,000 mls @ 100 mls/hr IV ASDIR [facility] Last Admin: 02/27/17 10:27 Dose: 100 mls/hr Nafcillin Sodium 2 gm/ (Dextrose) 100 mls @ 100 mls/hr IVPB Q4H-IV [facility] Last Admin: 02/28/17 05:20 Dose: 100 mls/hr Insulin Aspart (Novolog Vial Sliding Scale -) 1 vial SQ TIDAC [facility] PRN Reason: Protocol Last Admin: 02/28/17 06:21 Dose: 2 units Meclizine HCl (Antivert -) 25 mg PO TID PRN PRN Reason: DIZZINESS Last Admin: 02/27/17 10:29 Dose: 25 mg Metoprolol Succinate (Toprol Xl -) 12.5 mg PO DAILY [facility] Ondansetron HCl (Zofran Injection) 4 mg IVPB Q8H PRN PRN Reason: NAUSEA Last Admin: 02/27/17 10:29 Dose: 4 mg Oxycodone HCl (Roxicodone -) 10 mg PO Q4H PRN PRN Reason: PAIN Last Admin: 02/28/17 01:23 Dose: 10 mg Polyethylene Glycol (Miralax (For Daily Use) -) 17 gm PO DAILY [facility] Last Admin: 02/27/17 10:28 Dose: 17 gm Ranitidine HCl (Zantac -) 150 mg PO BID [facility] Last Admin: 02/27/17 21:12 Dose: 150 mg Vitamin E (Vitamin E -) 400 unit PO DAILY [facility] Last Admin: 02/27/17 10:28 Dose: 400 unit Vital Signs Period Temp Pulse Resp BP Sys/Resendez Pulse Ox Last 24 Hr 98.5 F-100 F 74-91 11-22 89-143/41-66 97-98 Intake & Output 02/25/17 02/26/17 02/27/17 02/28/17 23:59 23:59 23:59 23:59 Intake Total 1920 1620 2985 1440 Output Total 200 50 Balance 1720 1570 2985 1440 Weight 98.43 kg 98.43 kg 106.322 kg Exam: General: awake, alert and cooperative HEENT: PERRL, no JVD CV: s1, s2 Pulm: diminished in bases Abd: obese Ext: WWP Neuro: grossly intact CBCD WBC 13.0 K/mm3 (4.0-10.0) H 02/28/17 05:15 RBC 3.64 M/mm3 (4.00-5.60) L 02/28/17 05:15 Hgb 11.4 GM/dL (11.7-16.9) L 02/28/17 05:15 Hct 33.3 % (35.4-49) L 02/28/17 05:15 MCV 91.5 fl (80-96) 02/28/17 05:15 MCHC 34.3 g/dl (32.0-35.9) 02/28/17 05:15 RDW 14.2 % (11.9-15.9) 02/28/17 05:15 Plt Count 173 K/MM3 (134-434) 02/28/17 05:15 MPV 9.1 fl (7.5-11.1) 02/28/17 05:15 CMP Sodium 125 mmol/L (136-145) L 02/28/17 05:15 Potassium 6.3 mmol/L (3.5-5.1) H* D 02/28/17 05:15 Chloride 91 mmol/L (98-107) L 02/28/17 05:15 Carbon Dioxide 17 mmol/L (21-32) L 02/28/17 05:15 Anion Gap 17 (8-16) H 02/28/17 05:15 BUN 76 mg/dL (7-18) H 02/28/17 05:15 Creatinine 7.5 mg/dL (0.7-1.3) H* D 02/28/17 05:15 Creat Clearance w eGFR 7.22 (>60) 02/28/17 05:15 Random Glucose 152 mg/dL (74-106) H 02/28/17 05:15 Calcium 7.5 mg/dL (8.5-10.1) L D 02/28/17 05:15 Total Bilirubin 2.2 mg/dL (0.2-1.0) H D 02/28/17 05:15 AST 37 U/L (15-37) 02/28/17 05:15 ALT 32 U/L (12-78) 02/28/17 05:15 Alkaline Phosphatase 131 U/L (45-117) H D 02/28/17 05:15 Total Protein 5.7 g/dl (6.4-8.2) L D 02/28/17 05:15 Albumin 2.4 g/dl (3.4-5.0) L 02/28/17 05:15 Microbiology 02/25/17 16:48 Urine - Urine Clean Catch Urine Culture - Final NO GROWTH OBTAINED 02/25/17 15:35 Blood - Peripheral Venous Blood Culture - Preliminary Presumptive Mssa (Pbp2a Neg) 02/25/17 15:30 Blood - Peripheral Venous Blood Culture - Preliminary Presumptive Mssa (Pbp2a Neg) 71yom PMHx CAD s/p CABG x2, gout on allopurinol, HTN, HLD, DMII, fatty liver and BPH admitted with cellulitis of the lt wrist found to have MSSA bacteremia ccb Gregoria in setting of sepsis +/- colchicine and indocin use. Plan: ID: MSSA bacteremia with Lt wrist cellulitis -Cont Nafcillin CV: Sepsis; Hx CAD s/p CABG x2 -HD monitoring -Cont metoprolol with hold parameters -Cont statins Renal: GREGORIA m/l ATN in setting of sepsis +/- colchicine and indocin use; hyponatremia -Nephrology consult -monitor BMP and UOP -IVF 100cc/h -Renal dose meds -Replete electrolytes -will likely need HD and vascular access Ortho: Lt wrist cellulitis; Hx gout -Cont allopurinol at renal dose 100mg/d -Elevation and warm compress to lt wrist -Lt wrist imaging -Pain manament Endo: MII Hgb AC 8.6 -Fingersticks -insulin SS Proph Hep sq Boerem ACNP Pulm/CCM CCT: 35m
[2017-02-28] MEDS: ALLOPURINOL 100 MG TABLET (FP) PO SCH (09:23)
[2017-02-28] MEDS: CHOLECALCIFEROL (VITAMIN D3) 1,000 UNIT TABLET (FP) PO SCH (09:23)
[2017-02-28] MEDS: RANITIDINE HCL 150 MG TABLET (FP) PO SCH ×2 (09:23→21:08)
[2017-02-28] MEDS ORDERED: PT OWN MED DRAWER 7, Y5N ONE ×2 (09:24→21:09)
[2017-02-28 09:25] LABS: CPK 85 IU/L (39-308)
[2017-02-28] MEDS: EZETIMIBE 10 MG TABLET (FP) PO SCH (09:25)
[2017-02-28] MEDS: VITAMIN E 400 INTERNATIONAL-UNITS CAPSULE (FP) PO SCH (09:25)
[2017-02-28 09:46] LABS: URINE APPEARANCE CLOUDY; URINE BILIRUBIN NEGATIVE (NEGATIVE); URINE BLOOD 1+ (NEGATIVE); URINE COLOR AMBER; URINE GLUCOSE (UA) 2+ (NEGATIVE); URINE KETONE NEGATIVE (NEGATIVE); URINE LEUK ESTERASE NEGATIVE (NEGATIVE); URINE NITRITE NEGATIVE (NEGATIVE); URINE UROBILINOGEN NEGATIVE mg/dL (0.2-1.0)
[2017-02-28 09:47] LABS: URINE PROTEIN 3+ (NEGATIVE)
[2017-02-28] MEDS: HEPARIN NA (PORCINE) 5,000 UNITS/ML 1ML VIAL SQ SCH ×2 (09:56→21:09)
[2017-02-28 10:46] LABS: URINE CREATININE 97.5 mg/dL (20-370)
[2017-02-28] MEDS: POLYETHYLENE GLYCOL 3350 119 GM BTL PO SCH (10:55)
[2017-02-28] MEDS: METOPROLOL SUCCINATE 25 MG TAB.SR.24H (FP) PO SCH (12:02)
[2017-02-28] MEDS: SODIUM CHLORIDE 1,000 ML IV SCH (12:02)
[2017-02-28] MEDS ORDERED: SODIUM CHLORIDE 500 ML IV SCH (12:15)
[2017-02-28] MEDS: ACETAMINOPHEN 325 MG TABLET (FP) PO PRN ×2 (12:24→20:53)
[2017-02-28 13:31] LABS: ANION GAP 19 (8-16); CALCIUM 7.5 mg/dL (8.5-10.1); CO2 14 mmol/L (21-32); GLUCOSE,RANDOM 180 mg/dL (74-106)
[2017-02-28 13:34] LABS: CREATININE 7.8 mg/dL (0.7-1.3)
[2017-02-28] MEDS ORDERED: LIDOCAINE HCL 1%, 10 MG/ML (50 mL VIAL) SQ ONE (13:35)
--- NOTE | 2017-02-28 15:29 | PN ---
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 - Current Medication List Current Medications: Active Medications Acetaminophen (Tylenol -) 650 mg PO Q4H PRN PRN Reason: PAIN Last Admin: 02/28/17 12:24 Dose: 650 mg Allopurinol (Zyloprim -) 100 mg PO DAILY [facility] Last Admin: 02/28/17 09:23 Dose: 100 mg Atorvastatin Calcium (Lipitor -) 40 mg PO HS [facility] Last Admin: 02/27/17 21:12 Dose: 40 mg Cholecalciferol (Vitamin D3 -) 2,000 unit PO DAILY [facility] Last Admin: 02/28/17 09:23 Dose: 2,000 unit Ezetimibe (Zetia -) 10 mg PO DAILY [facility] Last Admin: 02/28/17 09:25 Dose: 10 mg Heparin Sodium (Porcine) (Heparin -) 5,000 unit SQ BID [facility] Last Admin: 02/28/17 09:56 Dose: 5,000 unit Sodium Chloride (Normal Saline -) 1,000 mls @ 100 mls/hr IV ASDIR [facility] Last Admin: 02/28/17 12:02 Dose: 100 mls/hr Nafcillin Sodium 2 gm/ (Dextrose) 100 mls @ 100 mls/hr IVPB Q4H-IV [facility] Last Admin: 02/28/17 13:57 Dose: 100 mls/hr Insulin Aspart (Novolog Vial Sliding Scale -) 1 vial SQ TIDAC [facility] PRN Reason: Protocol Last Admin: 02/28/17 13:00 Dose: 2 units Meclizine HCl (Antivert -) 25 mg PO TID PRN PRN Reason: DIZZINESS Last Admin: 02/27/17 10:29 Dose: 25 mg Metoprolol Succinate (Toprol Xl -) 12.5 mg PO DAILY [facility] Last Admin: 02/28/17 12:02 Dose: Not Given Ondansetron HCl (Zofran Injection) 4 mg IVPB Q8H PRN PRN Reason: NAUSEA Last Admin: 02/27/17 10:29 Dose: 4 mg Oxycodone HCl (Roxicodone -) 10 mg PO Q4H PRN PRN Reason: PAIN Last Admin: 02/28/17 12:23 Dose: 10 mg Polyethylene Glycol (Miralax (For Daily Use) -) 17 gm PO DAILY [facility] Last Admin: 02/28/17 10:55 Dose: 17 gm Ranitidine HCl (Zantac -) 150 mg PO BID [facility] Last Admin: 02/28/17 09:23 Dose: 150 mg Vitamin E (Vitamin E -) 400 unit PO DAILY [facility] Last Admin: 02/28/17 09:25 Dose: 400 unit - Objective Vital Signs: Vital Signs Temperature 99.8 F H 02/28/17 13:00 Pulse Rate 82 02/28/17 14:00 Respiratory Rate 18 02/28/17 14:00 Blood Pressure 102/56 02/28/17 14:00 O2 Sat by Pulse Oximetry (%) 98 02/28/17 07:30 Constitutional: Yes: No Distress, Calm Cardiovascular: Yes: Regular Rate and Rhythm Respiratory: Yes: Regular, CTA Bilaterally Gastrointestinal: Yes: Normal Bowel Sounds, Soft Extremities: Yes: Other (wrist continues to improve) Neurological: Yes: Alert, Oriented Psychiatric: Yes: Alert, Oriented Labs: CBC, BMP 02/28/17 05:15 02/28/17 12:40 Assessment/Plan sepsis septic left wrist joint gm positive bacteremia fever tenderness patients diagnosis is staph septic arthritis of the left wrist plan conitnue abx dialysis as per renal monitor bp ct scan seen and result noted rest continue icu await for repeat blood cx reports cc 40 min
--- NOTE | 2017-02-28 15:33 | PROC ---
Central Line Insertion Indication: Vasopressor, Other (dialysis) Risks and Benefits Explained: Yes Consent on Chart: Yes Central Line: Dialysis Cath, Tri Lumen Anesthesia: 1% Lidocaine Position: Right Internal Jugular Post Insertion: Yes: Bilateral Breath Sounds, Bilateral Chest Expansion, Chest X-Ray Ordered Sterile Dressing Applied: Yes Remarks: tolerated procedure w/o complications
[2017-02-28] MEDS: ATORVASTATIN CA 40 MG TABLET (FP) PO SCH (21:08)
[2017-02-28] MEDS: TRIPLE LUMEN FLUSH 4 ML ML IVPUSH SCH (22:00)
[2017-03-01] MEDS: NAFCILLIN - 2 GM in DEXTROSE 5%-WATER - 100 ML IVPB SCH ×6 (03:00→21:02)
[2017-03-01 06:17] LABS: BASOPHIL 0.2 % (0-2.0); EOSINOPHIL 1.7 % (0-4.5); MCH 31.8 pg (25.7-33.7); MCHC 34.6 g/dl (32.0-35.9); MEAN CELL VOLUME 91.8 fl (80-96); MEAN PLT VOLUME 8.3 fl (7.5-11.1); NEUTROPHILS 76.2 % (42.8-82.8); PLATELET COUNT 163 K/MM3 (134-434); RDW 14.8 % (11.9-15.9); WHITE BLOOD COUNT 9.4 K/mm3 (4.0-10.0)
[2017-03-01 06:39] LABS: ANION GAP 15 (8-16); CO2 21 mmol/L (21-32); CREATININE 6.4 mg/dL (0.7-1.3); GLUCOSE,RANDOM 196 mg/dL (74-106); MAGNESIUM 1.9 mg/dL (1.8-2.4); PHOSPHOROUS 5.2 mg/dL (2.5-4.9)
[2017-03-01] MEDS: INSULIN SLIDING SCALE (NOVOLOG) 1 VIAL SQ SCH ×3 (07:05→15:40)
[2017-03-01] MEDS ORDERED: PT OWN MED DRAWER 7, Y5N ONE ×4 (07:22→20:21)
[2017-03-01] MEDS: oxyCODONE HCL 5 MG TABLET PO PRN ×3 (07:23→20:05)
[2017-03-01] MEDS: ACETAMINOPHEN 325 MG TABLET (FP) PO PRN ×3 (07:24→20:04)
--- NOTE | 2017-03-01 08:26 | PN ---
Progress Note (short form) - Note Progress Note: PULM/CCM pt seen and examined in ICU 24HR: -tolerated HD, no ultrafiltration -afebile and hemodynamcially stable, BP a bit soft -another HD session planned for today Active Medications Acetaminophen (Tylenol -) 650 mg PO Q4H PRN PRN Reason: PAIN Last Admin: 03/01/17 07:24 Dose: 650 mg Allopurinol (Zyloprim -) 100 mg PO DAILY [facility] Last Admin: 02/28/17 09:23 Dose: 100 mg Atorvastatin Calcium (Lipitor -) 40 mg PO HS [facility] Last Admin: 02/28/17 21:08 Dose: 40 mg Cholecalciferol (Vitamin D3 -) 2,000 unit PO DAILY [facility] Last Admin: 02/28/17 09:23 Dose: 2,000 unit Ezetimibe (Zetia -) 10 mg PO DAILY [facility] Last Admin: 02/28/17 09:25 Dose: 10 mg Heparin Sodium (Porcine) (Heparin -) 5,000 unit SQ BID [facility] Last Admin: 02/28/17 21:09 Dose: 5,000 unit IV Flush (Triple Lumen Flush) 4 ml IVPUSH BID [facility] Last Admin: 02/28/17 22:00 Dose: 4 ml Sodium Chloride (Normal Saline -) 1,000 mls @ 100 mls/hr IV ASDIR [facility] Last Admin: 02/28/17 12:02 Dose: 100 mls/hr Nafcillin Sodium 2 gm/ (Dextrose) 100 mls @ 100 mls/hr IVPB Q4H-IV [facility] Last Admin: 03/01/17 07:41 Dose: 100 mls/hr Insulin Aspart (Novolog Vial Sliding Scale -) 1 vial SQ TIDAC [facility] PRN Reason: Protocol Last Admin: 03/01/17 07:05 Dose: 4 units Meclizine HCl (Antivert -) 25 mg PO TID PRN PRN Reason: DIZZINESS Last Admin: 02/27/17 10:29 Dose: 25 mg Metoprolol Succinate (Toprol Xl -) 12.5 mg PO DAILY [facility] Last Admin: 02/28/17 12:02 Dose: Not Given Ondansetron HCl (Zofran Injection) 4 mg IVPB Q8H PRN PRN Reason: NAUSEA Last Admin: 02/27/17 10:29 Dose: 4 mg Oxycodone HCl (Roxicodone -) 10 mg PO Q4H PRN PRN Reason: PAIN Last Admin: 03/01/17 07:23 Dose: 10 mg Polyethylene Glycol (Miralax (For Daily Use) -) 17 gm PO DAILY [facility] Last Admin: 02/28/17 10:55 Dose: 17 gm Ranitidine HCl (Zantac -) 150 mg PO BID [facility] Last Admin: 02/28/17 21:08 Dose: 150 mg Vitamin E (Vitamin E -) 400 unit PO DAILY [facility] Last Admin: 02/28/17 09:25 Dose: 400 unit Home Medication List Medication Instructions Recorded Confirmed Type Allopurinol [Zyloprim -] 300 mg PO DAILY 02/25/17 02/25/17 History Atorvastatin Ca [Lipitor] 40 mg PO HS 02/25/17 02/25/17 History Cholecalciferol (Vitamin D3) 2,000 unit PO DAILY 02/25/17 02/25/17 History [Vitamin D3] Ezetimibe [Zetia] 10 mg PO DAILY 02/25/17 02/25/17 History Losartan Potassium 50 mg PO BID 02/25/17 02/25/17 History Meclizine HCl 25 mg PO TID PRN 02/25/17 02/25/17 History Metformin HCl [Metformin HCl ER] 1,000 mg PO BID 02/25/17 02/25/17 History Metoprolol Succinate [Toprol Xl -] 25 mg PO DAILY 02/25/17 02/25/17 History Spironolactone [Aldactone] 50 mg PO DAILY 02/25/17 02/25/17 History Vitamin E 400 unit PO DAILY 02/25/17 02/25/17 History Vital Signs Temp 98.5 F 02/28/17 18:22 Pulse 92 H 03/01/17 07:00 Resp 18 03/01/17 07:00 BP 95/48 03/01/17 07:00 Pulse Ox 97 03/01/17 00:15 Intake & Output 02/28/17 02/28/17 03/01/17 11:59 23:59 11:59 Intake Total 1940 1740 1342 Output Total 20 25 10 Balance 1920 1715 1332 Weight 106.322 kg 111.6 kg Intake: IV 900 1142 Normal Saline - 1,000 ml 900 1142 @ 100 mls/hr IV ASDIR [facility] Rx#:[id number] IVPB 800 900 200 Oral 240 840 Output: Urine 20 25 10 Void 20 Taylor 25 10 Other: Voiding Method Urinal Urinal Urinal Bowel Movement No No No Weight Measurement Method Built in Bedscale Built in Bedscale Exam: General: awake, alert and cooperative HEENT: PERRL, no JVD CV: s1, s2 Pulm: diminished in bases Abd: obese Ext: WWP, L wrist improved swelling erythema Neuro: grossly intact CBCD WBC 9.4 K/mm3 (4.0-10.0) 03/01/17 05:20 RBC 3.20 M/mm3 (4.00-5.60) L 03/01/17 05:20 Hgb 10.2 GM/dL (11.7-16.9) L D 03/01/17 05:20 Hct 29.3 % (35.4-49) L 03/01/17 05:20 MCV 91.8 fl (80-96) 03/01/17 05:20 MCHC 34.6 g/dl (32.0-35.9) 03/01/17 05:20 RDW 14.8 % (11.9-15.9) 03/01/17 05:20 Plt Count 163 K/MM3 (134-434) 03/01/17 05:20 MPV 8.3 fl (7.5-11.1) 03/01/17 05:20 CMP Sodium 129 mmol/L (136-145) L 03/01/17 05:20 Potassium 4.5 mmol/L (3.5-5.1) 03/01/17 05:20 Chloride 93 mmol/L (98-107) L 03/01/17 05:20 Carbon Dioxide 21 mmol/L (21-32) D 03/01/17 05:20 Anion Gap 15 (8-16) 03/01/17 05:20 BUN 62 mg/dL (7-18) H D 03/01/17 05:20 Creatinine 6.4 mg/dL (0.7-1.3) H 03/01/17 05:20 Creat Clearance w eGFR 7.22 (>60) 02/28/17 05:15 Calcium 7.0 mg/dL (8.5-10.1) L 03/01/17 05:20 Total Bilirubin 2.2 mg/dL (0.2-1.0) H D 02/28/17 05:15 AST 37 U/L (15-37) 02/28/17 05:15 ALT 32 U/L (12-78) 02/28/17 05:15 Alkaline Phosphatase 131 U/L (45-117) H D 02/28/17 05:15 Total Protein 5.7 g/dl (6.4-8.2) L D 02/28/17 05:15 Albumin 2.4 g/dl (3.4-5.0) L 02/28/17 05:15 Microbiology 02/25/17 16:48 Urine - Urine Clean Catch Urine Culture - Final NO GROWTH OBTAINED 02/25/17 15:35 Blood - Peripheral Venous Blood Culture - Preliminary Presumptive Mssa (Pbp2a Neg) 02/25/17 15:30 Blood - Peripheral Venous Blood Culture - Preliminary Presumptive Mssa (Pbp2a Neg) 71yom PMHx CAD s/p CABG x2, gout on allopurinol, HTN, HLD, DMII, fatty liver and BPH admitted with cellulitis of the lt wrist found to have MSSA bacteremia ccb Gregoria in setting of sepsis +/- colchicine and indocin use. Plan: ID: MSSA bacteremia with Lt wrist cellulitis -Cont Nafcillin - will need min two weeks -consider PICC access next week. CV: Sepsis; Hx CAD s/p CABG x2 -HD monitoring -Cont metoprolol with hold parameters -Cont statins Renal: GREGORIA m/l ATN in setting of sepsis +/- colchicine and indocin use; hyponatremia -Nephrology consult -HD again today -monitor BMP and UOP -IVF 100cc/h -Renal dose meds -Replete electrolytes Ortho: Lt wrist cellulitis; Hx gout -Cont allopurinol at renal dose 100mg/d -Elevation and warm compress to lt wrist -Pain control Endo: MII Hgb AC 8.6 -Fingersticks -insulin SS Proph Hep sq [place], NAV[facility] [id number]
--- NOTE | 2017-03-01 09:01 | PN ---
Progress Note (short form) - Note Progress Note: Renal Follow up for JOE Pt seen and examined in the ICU awake and alert continues to have pain in the arm now extending toward the elbow Vital Signs Temperature 98.5 F 02/28/17 18:22 Pulse Rate 90 03/01/17 08:30 Respiratory Rate 18 03/01/17 08:30 Blood Pressure 95/36 03/01/17 08:30 O2 Sat by Pulse Oximetry (%) 97 03/01/17 08:47 Intake & Output 02/26/17 02/27/17 02/28/17 03/01/17 23:59 23:59 23:59 23:59 Intake Total 1620 2985 3680 1342 Output Total 50 45 10 Balance 1570 2985 3635 1332 Weight 217 lb 234 lb 6.4 oz 246 lb 0.574 oz Gen: NAD CVS: RRR Lungs: CTA Abd: soft NT/ND Ext: No LE edema, left wrist and hand swollen, eyrthema improved CBC, BMP 03/01/17 05:20 03/01/17 05:20 Laboratory Tests 03/01/17 05:20 Calcium 7.0 L Phosphorus 5.2 H Magnesium 1.9 Current Medications Acetaminophen (Tylenol -) 650 mg PO Q4H PRN PRN Reason: PAIN Last Admin: 03/01/17 07:24 Dose: 650 mg Allopurinol (Zyloprim -) 100 mg PO DAILY [facility] Last Admin: 02/28/17 09:23 Dose: 100 mg Atorvastatin Calcium (Lipitor -) 40 mg PO HS [facility] Last Admin: 02/28/17 21:08 Dose: 40 mg Cholecalciferol (Vitamin D3 -) 2,000 unit PO DAILY [facility] Last Admin: 02/28/17 09:23 Dose: 2,000 unit Ezetimibe (Zetia -) 10 mg PO DAILY [facility] Last Admin: 02/28/17 09:25 Dose: 10 mg Heparin Sodium (Porcine) (Heparin -) 5,000 unit SQ BID [facility] Last Admin: 02/28/17 21:09 Dose: 5,000 unit IV Flush (Triple Lumen Flush) 4 ml IVPUSH BID [facility] Last Admin: 02/28/17 22:00 Dose: 4 ml Sodium Chloride (Normal Saline -) 1,000 mls @ 100 mls/hr IV ASDIR [facility] Last Admin: 02/28/17 12:02 Dose: 100 mls/hr Nafcillin Sodium 2 gm/ (Dextrose) 100 mls @ 100 mls/hr IVPB Q4H-IV [facility] Last Admin: 03/01/17 07:41 Dose: 100 mls/hr Insulin Aspart (Novolog Vial Sliding Scale -) 1 vial SQ TIDAC [facility] PRN Reason: Protocol Last Admin: 03/01/17 07:05 Dose: 4 units Meclizine HCl (Antivert -) 25 mg PO TID PRN PRN Reason: DIZZINESS Last Admin: 02/27/17 10:29 Dose: 25 mg Metoprolol Succinate (Toprol Xl -) 12.5 mg PO DAILY [facility] Last Admin: 02/28/17 12:02 Dose: Not Given Ondansetron HCl (Zofran Injection) 4 mg IVPB Q8H PRN PRN Reason: NAUSEA Last Admin: 02/27/17 10:29 Dose: 4 mg Oxycodone HCl (Roxicodone -) 10 mg PO Q4H PRN PRN Reason: PAIN Last Admin: 03/01/17 07:23 Dose: 10 mg Polyethylene Glycol (Miralax (For Daily Use) -) 17 gm PO DAILY [facility] Last Admin: 02/28/17 10:55 Dose: 17 gm Ranitidine HCl (Zantac -) 150 mg PO BID [facility] Last Admin: 02/28/17 21:08 Dose: 150 mg Vitamin E (Vitamin E -) 400 unit PO DAILY [facility] Last Admin: 02/28/17 09:25 Dose: 400 unit A/P 71 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 #Anuric Acute Kidney Injury now with hyperkalemia s/p 1st HD last night w/o complication pt without signs of any renal recovery at this time remains anuric for 2nd HD today will plan trial of IV diuretics tomorrow if BP remains stable Dose all meds for Cr Cl less then 10 #Cellulitis r/o Joint infection/Leukocytosis continue management as per ID and John Acharya DO Problem List - Problems (1) Cellulitis Code(s): L03.90 - CELLULITIS, UNSPECIFIED Qualifiers: Site of cellulitis: extremity Site of cellulitis of extremity: upper extremity Laterality: left Qualified Code(s): L03.114 - Cellulitis of left upper limb (2) Acute renal failure (ARF) Code(s): N17.9 - ACUTE KIDNEY FAILURE, UNSPECIFIED (3) CAD (coronary artery disease) Code(s): I25.10 - ATHSCL HEART DISEASE OF [place] CORONARY ARTERY W/O ANG PCTRS (4) Hypertension Code(s): I10 - ESSENTIAL (PRIMARY) HYPERTENSION (5) Gout Code(s): M10.9 - GOUT, UNSPECIFIED (6) Leukocytosis Code(s): D72.829 - ELEVATED WHITE BLOOD CELL COUNT, UNSPECIFIED (7) Hyponatremia Code(s): E87.1 - HYPO-OSMOLALITY AND HYPONATREMIA
[2017-03-01] MEDS: HEPARIN NA (PORCINE) 5,000 UNITS/ML 1ML VIAL SQ SCH ×2 (09:13→21:02)
[2017-03-01] MEDS: CHOLECALCIFEROL (VITAMIN D3) 1,000 UNIT TABLET (FP) PO SCH (09:14)
[2017-03-01] MEDS: POLYETHYLENE GLYCOL 3350 119 GM BTL PO SCH (09:14)
[2017-03-01] MEDS: METOPROLOL SUCCINATE 25 MG TAB.SR.24H (FP) PO SCH (09:14)
[2017-03-01] MEDS: TRIPLE LUMEN FLUSH 4 ML ML IVPUSH SCH ×2 (09:14→21:02)
[2017-03-01] MEDS: VITAMIN E 400 INTERNATIONAL-UNITS CAPSULE (FP) PO SCH (09:14)
[2017-03-01] MEDS: RANITIDINE HCL 150 MG TABLET (FP) PO SCH ×2 (09:15→21:02)
[2017-03-01] MEDS: EZETIMIBE 10 MG TABLET (FP) PO SCH (09:15)
[2017-03-01] MEDS: ALLOPURINOL 100 MG TABLET (FP) PO SCH (09:15)
--- NOTE | 2017-03-01 10:36 | PN ---
Progress Note (short form) - Note Progress Note: MUCH IMPROVED TODAY WBC DOWN TO 9 BUN/CR IMPROVING SWELLING DOWN, REDNESS DOWN, IMPROVED AROM AND PROM IMP: IMPROVING PLAN: CONTINUE CURRENT ABX, BEGIN ROM EXERCISES OF LEFT WRIST AND FINGERS, COINTINUE ELEVATION
[2017-03-01] MEDS: ONDANSETRON 4 MG/2 ML VIAL IVPB PRN (11:52)
[2017-03-01] MEDS: SODIUM CHLORIDE 1,000 ML IV SCH (14:58)
--- NOTE | 2017-03-01 16:37 | PN ---
Progress Note, Physician History of Present Illness: patient improving dialysis being done - Current Medication List Current Medications: Active Medications Acetaminophen (Tylenol -) 650 mg PO Q4H PRN PRN Reason: PAIN Last Admin: 03/01/17 12:16 Dose: 650 mg Allopurinol (Zyloprim -) 100 mg PO DAILY [facility] Last Admin: 03/01/17 09:15 Dose: 100 mg Atorvastatin Calcium (Lipitor -) 40 mg PO HS [facility] Last Admin: 02/28/17 21:08 Dose: 40 mg Cholecalciferol (Vitamin D3 -) 2,000 unit PO DAILY [facility] Last Admin: 03/01/17 09:14 Dose: 2,000 unit Ezetimibe (Zetia -) 10 mg PO DAILY [facility] Last Admin: 03/01/17 09:15 Dose: 10 mg Heparin Sodium (Porcine) (Heparin -) 5,000 unit SQ BID [facility] Last Admin: 03/01/17 09:13 Dose: 5,000 unit IV Flush (Triple Lumen Flush) 4 ml IVPUSH BID [facility] Last Admin: 03/01/17 09:14 Dose: 4 ml Sodium Chloride (Normal Saline -) 1,000 mls @ 100 mls/hr IV ASDIR [facility] Last Admin: 03/01/17 14:58 Dose: 100 mls/hr Nafcillin Sodium 2 gm/ (Dextrose) 100 mls @ 100 mls/hr IVPB Q4H-IV [facility] Last Admin: 03/01/17 14:52 Dose: 100 mls/hr Insulin Aspart (Novolog Vial Sliding Scale -) 1 vial SQ TIDAC [facility] PRN Reason: Protocol Last Admin: 03/01/17 15:40 Dose: 2 units Meclizine HCl (Antivert -) 25 mg PO TID PRN PRN Reason: DIZZINESS Last Admin: 02/27/17 10:29 Dose: 25 mg Metoprolol Succinate (Toprol Xl -) 12.5 mg PO DAILY [facility] Last Admin: 03/01/17 09:14 Dose: Not Given Ondansetron HCl (Zofran Injection) 4 mg IVPB Q8H PRN PRN Reason: NAUSEA Last Admin: 03/01/17 11:52 Dose: 4 mg Oxycodone HCl (Roxicodone -) 10 mg PO Q4H PRN PRN Reason: PAIN Last Admin: 03/01/17 12:15 Dose: 10 mg Polyethylene Glycol (Miralax (For Daily Use) -) 17 gm PO DAILY [facility] Last Admin: 03/01/17 09:14 Dose: Not Given Ranitidine HCl (Zantac -) 150 mg PO BID [facility] Last Admin: 03/01/17 09:15 Dose: 150 mg Vitamin E (Vitamin E -) 400 unit PO DAILY [facility] Last Admin: 03/01/17 09:14 Dose: 400 unit - Objective Vital Signs: Vital Signs Temperature 98 F 03/01/17 16:00 Pulse Rate 93 H 03/01/17 16:20 Respiratory Rate 18 03/01/17 16:20 Blood Pressure 110/55 03/01/17 16:20 O2 Sat by Pulse Oximetry (%) 97 03/01/17 08:47 Constitutional: Yes: No Distress, Calm Cardiovascular: Yes: Regular Rate and Rhythm Respiratory: Yes: Regular, CTA Bilaterally Gastrointestinal: Yes: Normal Bowel Sounds, Soft Musculoskeletal: Yes: WNL Extremities: Yes: WNL Integumentary: Yes: Other (rt sided shiley) Neurological: Yes: Alert, Oriented Psychiatric: Yes: Alert, Oriented Labs: CBC, BMP 03/01/17 05:20 03/01/17 05:20 Assessment/Plan sepsis septic left wrist joint gm positive bacteremia fever tenderness patients diagnosis is staph septic arthritis of the left wrist plan conitnue abx dialysis as per renal monitor bp will order repeat ct scan of the wrist rest continue icu repeat blood cx negative cc 40 min
--- NOTE | 2017-03-01 17:28 | PN ---
Physical Exam: SUBJECTIVE: Patient seen and examined in ICU. Receiving HD. OBJECTIVE: Vital Signs Period Temp Pulse Resp BP Sys/Resendez Pulse Ox Last 24 Hr 98 F-98.5 F 84-100 10-20 85-135/36-67 96-97 GENERAL: The patient is awake, alert, and fully oriented, in no acute distress. HEAD: Normal with no signs of trauma. LUNGS: Breath sounds equal, clear to auscultation bilaterally, no wheezes, no crackles, no accessory muscle use. HEART: Regular rate and rhythm, S1, S2 without murmur, rub or gallop. ABDOMEN: Soft, nontender, nondistended, normoactive bowel sounds, no guarding, no rebound, no hepatosplenomegaly, no masses. EXTREMITIES: Left wrist and hand swollen NEUROLOGICAL: Cranial nerves II through XII grossly intact. Normal speech, gait not observed. Laboratory Results - last 24 hr 02/27/17 02/28/17 02/28/17 12:45 05:41 09:00 WBC RBC Hgb Hct MCV MCH MCHC RDW Plt Count MPV Neutrophils % Lymphocytes % Monocytes % Eosinophils % Basophils % Sodium Potassium Chloride Carbon Dioxide Anion Gap BUN Creatinine POC Glucometer [phone] Random Glucose Calcium Phosphorus Magnesium Urine Color Lynne Urine Appearance Cloudy Urine pH 5.0 Ur Specific [place] 1.020 Urine Protein 3+ H Urine Glucose (UA) 2+ H Urine Ketones Negative Urine Blood 1+ H Urine Nitrite Negative Urine Bilirubin Negative Urine Urobilinogen Negative Ur Leukocyte Esterase Negative Urine RBC None Urine WBC None Amorphous Urates Few FANNY Screen Negative Hepatitis A IgM Ab Negative Hep Bs Antigen Negative Hep B Core IgM Ab Negative Hepatitis C Ab (EIA) <0.1 02/28/17 03/01/17 03/01/17 17:36 05:20 05:20 WBC 9.4 RBC 3.20 L Hgb 10.2 L D Hct 29.3 L MCV 91.8 MCH 31.8 MCHC 34.6 RDW 14.8 Plt Count 163 MPV 8.3 Neutrophils % 76.2 Lymphocytes % 8.3 Monocytes % 13.6 H Eosinophils % 1.7 D Basophils % 0.2 Sodium 129 L Potassium 4.5 Chloride 93 L Carbon Dioxide 21 D Anion Gap 15 BUN 62 H D Creatinine 6.4 H POC Glucometer [phone] Random Glucose 196 H Calcium 7.0 L Phosphorus 5.2 H Magnesium 1.9 Urine Color Urine Appearance Urine pH Ur Specific [place] Urine Protein Urine Glucose (UA) Urine Ketones Urine Blood Urine Nitrite Urine Bilirubin Urine Urobilinogen Ur Leukocyte Esterase Urine RBC Urine WBC Amorphous Urates FANNY Screen Hepatitis A IgM Ab Hep Bs Antigen Hep B Core IgM Ab Hepatitis C Ab (EIA) Active Medications Generic Name Dose Route Start Last Admin Trade Name Freq PRN Reason Stop Dose Admin Acetaminophen 650 mg 02/26/17 17:05 03/01/17 12:16 Tylenol - PO 650 mg Q4H PRN Administration PAIN Allopurinol 100 mg 02/26/17 10:58 03/01/17 09:15 Zyloprim - PO 100 mg DAILY [facility] Administration Atorvastatin Calcium 40 mg 02/25/17 22:00 02/28/17 21:08 Lipitor - PO 40 mg HS [facility] Administration Cholecalciferol 2,000 unit 02/26/17 10:00 03/01/17 09:14 Vitamin D3 - PO 2,000 unit DAILY [facility] Administration Ezetimibe 10 mg 02/26/17 10:00 03/01/17 09:15 Zetia - PO 10 mg DAILY [facility] Administration Heparin Sodium (Porcine) 5,000 unit 02/27/17 22:00 03/01/17 09:13 Heparin - SQ 5,000 unit BID [facility] Administration IV Flush 4 ml 02/28/17 22:00 03/01/17 09:14 Triple Lumen Flush IVPUSH 4 ml BID [facility] Administration Sodium Chloride 1,000 mls @ 100 mls/hr 02/27/17 09:52 03/01/17 14:58 Normal Saline - IV 100 mls/hr ASDIR [facility] Administration Nafcillin Sodium 2 gm/ 100 mls @ 100 mls/hr 02/27/17 15:00 03/01/17 14:52 Dextrose IVPB 100 mls/hr Q4H-IV [facility] Administration Insulin Aspart 1 vial 02/27/17 10:04 03/01/17 15:40 Novolog Vial Sliding Scale - SQ 2 units TIDAC [facility] Administration Protocol Meclizine HCl 25 mg 02/25/17 18:39 02/27/17 10:29 Antivert - PO 25 mg TID PRN Administration DIZZINESS Metoprolol Succinate 12.5 mg 02/27/17 10:59 03/01/17 09:14 Toprol Xl - PO Not Given DAILY [facility] Ondansetron HCl 4 mg 02/27/17 09:51 03/01/17 11:52 Zofran Injection IVPB 4 mg Q8H PRN Administration NAUSEA Polyethylene Glycol 17 gm 02/27/17 10:15 03/01/17 09:14 Miralax (For Daily Use) - PO Not Given DAILY [facility] Ranitidine HCl 150 mg 02/25/17 22:00 03/01/17 09:15 Zantac - PO 150 mg BID [facility] Administration Vitamin E 400 unit 02/26/17 10:00 03/01/17 09:14 Vitamin E - PO 400 unit DAILY [facility] Administration ASSESSMENT/PLAN 71 year-old male with a PMH significant for HTN, HLD, CAD s/p CABG x2, gout, IDDM, BPH. Admitted for LUE cellulitis. Hospital course complicated by acute kidney injury. Sepsis secondary to LUE cellulitis and MSSA bacteremia --afebrile, leukocytosis resolved --02/26 CT negative for abscess/collection --continue Nafcillin --ID following Acute kidney injury, multifactorial Hyperkalemia, resolved Hyponatremia Metabolic acidosis --most likely ATN in setting of sepsis, colchicine, indocin use --receiving hemodialysis CAD s/p CABG --continue Toprol XL, Lipitor Gout --continue allopurinol renally dosed IDDM --HgbA1C 8.6 --Novolog sliding scale coverage DVT prophylaxis: subq heparin Visit type - Emergency Visit Emergency Visit: Yes ED Registration Date: 02/25/17 Care time: The patient presented to the Emergency Department on the above date and was hospitalized for further evaluation of their emergent condition. - New Patient This patient is new to me today: No - Critical Care Critical Care patient: Yes Total Critical Care Time (in minutes): 35 Critical Care Statement: The care of this patient involved high complexity decision making to prevent further life threatening deterioration of the patient 's condition and/or to evaluate & treat vital organ system(s) failure or risk of failure.
[2017-03-01] MEDS ORDERED: oxyCODONE HCL 5 MG TABLET ONE (20:02)
[2017-03-01] MEDS: ATORVASTATIN CA 40 MG TABLET (FP) PO SCH (21:02)
[2017-03-01] MEDS ORDERED: oxyCODONE HCL 5 MG TABLET PO ONE (23:36)
[2017-03-02 00:06] LABS: COMPLEMENT C3 205 mg/dL (82-167); COMPLEMENT C4 36 mg/dL (14-44)
[2017-03-02] MEDS: ACETAMINOPHEN 325 MG TABLET (FP) PO PRN ×5 (00:14→21:28)
[2017-03-02] MEDS: oxyCODONE HCL 5 MG TABLET PO PRN ×6 (00:16→23:47)
[2017-03-02] MEDS: NAFCILLIN - 2 GM in DEXTROSE 5%-WATER - 100 ML IVPB SCH ×6 (02:08→21:18)
[2017-03-02 05:57] LABS: BASOPHIL 0.2 % (0-2.0); MCH 31.7 pg (25.7-33.7); MCHC 34.7 g/dl (32.0-35.9); MEAN CELL VOLUME 91.3 fl (80-96); MEAN PLT VOLUME 8.2 fl (7.5-11.1); NEUTROPHILS 73.2 % (42.8-82.8); PLATELET COUNT 200 K/MM3 (134-434); RDW 15.1 % (11.9-15.9); WHITE BLOOD COUNT 9.8 K/mm3 (4.0-10.0)
[2017-03-02 06:28] LABS: C-REACTIVE PROTEIN 13.1 MG/DL (0.00-0.3); MAGNESIUM 1.9 mg/dL (1.8-2.4); PHOSPHOROUS 5.4 mg/dL (2.5-4.9)
[2017-03-02 06:34] LABS: ANION GAP 13 (8-16); CALCIUM 7.2 mg/dL (8.5-10.1); CO2 25 mmol/L (21-32); CREATININE 5.7 mg/dL (0.7-1.3); GLUCOSE,RANDOM 185 mg/dL (74-106)
[2017-03-02] MEDS: INSULIN SLIDING SCALE (NOVOLOG) 1 VIAL SQ SCH ×3 (07:23→18:52)
--- NOTE | 2017-03-02 07:54 | PN ---
Physical Exam: SUBJECTIVE: Patient seen and examined. No acute distress. Left hand swelling and erythema improved. present and involved in care. OBJECTIVE: Vital Signs Period Temp Pulse Resp BP Sys/Resendez Pulse Ox Last 24 Hr 98 F-99.0 F 84-111 11-25 90-120/36-72 97-97 General: awake, alert and cooperative. no acute distress HEENT: PERRL, no JVD CV: s1, s2 Pulm: Clear to auscultation Abd: protuberant Ext: L wrist improved swelling erythema Neuro: grossly intact Laboratory Results - last 24 hr 02/27/17 03/01/17 03/01/17 12:45 10:56 15:39 WBC RBC Hgb Hct MCV MCH MCHC RDW Plt Count MPV Neutrophils % Lymphocytes % Monocytes % Eosinophils % Basophils % Sodium Potassium Chloride Carbon Dioxide Anion Gap BUN Creatinine POC Glucometer [phone] Random Glucose Calcium Phosphorus Magnesium C-Reactive Protein Complement C3 205 H Complement C4 36 03/02/17 03/02/17 03/02/17 05:00 05:00 05:00 WBC 9.8 RBC 3.26 L Hgb 10.3 L Hct 29.7 L MCV 91.3 MCH 31.7 MCHC 34.7 RDW 15.1 Plt Count 200 D MPV 8.2 Neutrophils % 73.2 Lymphocytes % 12.1 D Monocytes % 11.5 H Eosinophils % 3.0 Basophils % 0.2 Sodium 131 L Potassium 4.3 Chloride 93 L Carbon Dioxide 25 Anion Gap 13 BUN 47 H D Creatinine 5.7 H POC Glucometer Random Glucose 185 H Calcium 7.2 L Phosphorus 5.4 H Magnesium 1.9 C-Reactive Protein 13.1 H D Complement C3 Complement C4 Active Medications Generic Name Dose Route Start Last Admin Trade Name Freq PRN Reason Stop Dose Admin Acetaminophen 650 mg 02/26/17 17:05 03/02/17 03:40 Tylenol - PO 650 mg Q4H PRN Administration PAIN Allopurinol 100 mg 02/26/17 10:58 03/01/17 09:15 Zyloprim - PO 100 mg DAILY [facility] Administration Atorvastatin Calcium 40 mg 02/25/17 22:00 03/01/17 21:02 Lipitor - PO 40 mg HS [facility] Administration Cholecalciferol 2,000 unit 02/26/17 10:00 03/01/17 09:14 Vitamin D3 - PO 2,000 unit DAILY [facility] Administration Ezetimibe 10 mg 02/26/17 10:00 03/01/17 09:15 Zetia - PO 10 mg DAILY [facility] Administration Heparin Sodium (Porcine) 5,000 unit 02/27/17 22:00 03/01/17 21:02 Heparin - SQ 5,000 unit BID [facility] Administration IV Flush 4 ml 02/28/17 22:00 03/01/17 21:02 Triple Lumen Flush IVPUSH 4 ml BID [facility] Administration Nafcillin Sodium 2 gm/ 100 mls @ 100 mls/hr 02/27/17 15:00 03/02/17 07:21 Dextrose IVPB 100 mls/hr Q4H-IV [facility] Administration Insulin Aspart 1 vial 02/27/17 10:04 03/02/17 07:23 Novolog Vial Sliding Scale - SQ 2 units TIDAC [facility] Administration Protocol Meclizine HCl 25 mg 02/25/17 18:39 02/27/17 10:29 Antivert - PO 25 mg TID PRN Administration DIZZINESS Metoprolol Succinate 12.5 mg 02/27/17 10:59 03/01/17 09:14 Toprol Xl - PO Not Given DAILY [facility] Ondansetron HCl 4 mg 02/27/17 09:51 03/01/17 11:52 Zofran Injection IVPB 4 mg Q8H PRN Administration NAUSEA Oxycodone HCl 5 mg 03/01/17 19:59 03/02/17 03:41 Roxicodone - PO 5 mg Q4H PRN Administration PAIN Polyethylene Glycol 17 gm 02/27/17 10:15 03/01/17 09:14 Miralax (For Daily Use) - PO Not Given DAILY [facility] Ranitidine HCl 150 mg 02/25/17 22:00 03/01/17 21:02 Zantac - PO 150 mg BID [facility] Administration Vitamin E 400 unit 02/26/17 10:00 03/01/17 09:14 Vitamin E - PO 400 unit DAILY [facility] Administration ASSESSMENT/PLAN: 71 year-old male with a PMH significant for HTN, HLD, CAD s/p CABG x2, gout, IDDM, BPH. Admitted for LUE cellulitis. Hospital course complicated by acute kidney injury. ID: - Continue Nafcillin per ID RESP - O2 as needed Renal - Continue hemodialysis as needed per Nephrology - Strict I & O - Daily weight - Glycemic control Ecourage mobilization with PT Local wound care VTE prophylaxis Visit type - Emergency Visit Emergency Visit: No - New Patient This patient is new to me today: Yes Date on this admission: 03/02/17 - Critical Care Critical Care patient: Yes Total Critical Care Time (in minutes): 30 Critical Care Statement: The care of this patient involved high complexity decision making to prevent further life threatening deterioration of the patient 's condition and/or to evaluate & treat vital organ system(s) failure or risk of failure.
--- NOTE | 2017-03-02 08:57 | PN ---
Progress Note (short form) - Note Progress Note: Ortho Pt seen and examined- improving slowly Selected Entries 03/02/17 06:00 Temperature 98.2 F Pulse Rate 84 Blood Pressure 100/53 Laboratory Tests 03/02/17 05:00 WBC 9.8 Hgb 10.3 L Hct 29.7 L Plt Count 200 D Left hand/wrist- decr erythema, decr swelling, decr pain, incr rom nvi a/p Continue IV ABX as per ID elevation ROM exercises no surgical intervention at the present time will follow d/w DR. Beebe
[2017-03-02] MEDS ORDERED: PT OWN MED DRAWER 7, Y5N ONE ×3 (09:33→17:06)
[2017-03-02] MEDS: CHOLECALCIFEROL (VITAMIN D3) 1,000 UNIT TABLET (FP) PO SCH (09:39)
[2017-03-02] MEDS: RANITIDINE HCL 150 MG TABLET (FP) PO SCH ×2 (09:39→21:19)
[2017-03-02] MEDS: VITAMIN E 400 INTERNATIONAL-UNITS CAPSULE (FP) PO SCH (09:39)
[2017-03-02] MEDS: ALLOPURINOL 100 MG TABLET (FP) PO SCH (09:39)
[2017-03-02] MEDS: HEPARIN NA (PORCINE) 5,000 UNITS/ML 1ML VIAL SQ SCH ×2 (09:39→21:19)
[2017-03-02] MEDS: MECLIZINE HCL 25 MG TABLET (FP) PO PRN (09:40)
[2017-03-02] MEDS: EZETIMIBE 10 MG TABLET (FP) PO SCH (09:40)
[2017-03-02] MEDS: TRIPLE LUMEN FLUSH 4 ML ML IVPUSH SCH (09:41)
[2017-03-02] MEDS: METOPROLOL SUCCINATE 25 MG TAB.SR.24H (FP) PO SCH (09:44)
[2017-03-02] MEDS: POLYETHYLENE GLYCOL 3350 119 GM BTL PO SCH (09:56)
--- NOTE | 2017-03-02 09:57 | PN ---
Progress Note (short form) - Note Progress Note: patient seen and examined this morning. Has less pain left hand and left wrist and forearm. Afebrile. Still no urine output of significance Hemodialysis x2 completed; not repeated today. Followed by inspector filter tip renal physician and infectious disease physicians. at bedside On exam: Vital Signs Temp 98 F 03/02/17 18:00 Pulse 72 03/02/17 18:00 Resp 10 L 03/02/17 18:00 BP 108/55 03/02/17 18:00 Pulse Ox 100 03/02/17 18:16 Intake & Output 03/01/17 03/02/17 03/02/17 23:59 11:59 23:59 Intake Total 2450 800 700 Output Total 0 18 Balance 2450 800 682 Weight 4.042 oz Intake: IV 1000 500 Normal Saline - 1,000 ml 1000 500 @ 100 mls/hr IV ASDIR [facility] Rx#:[id number] IVPB 500 300 300 Oral 950 400 Output: Urine 0 18 Void 0 Taylor 0 18 Other: Voiding Method Indwelling Catheter Indwelling Catheter Indwelling Catheter Bowel Movement No No Weight Measurement Method Built in Bedscale patient is alert. Chest decreased breath sounds but no wheezes or rales. Heart regular. Abdomen distended and slightly tympanic. Extremities 1+ pedal edema. Left wrist and left hand still swollen with mild tenderness Left forearm still slight erythema with mild pitting edema. Abnormal Lab Results 02/27/17 03/02/17 03/02/17 12:45 05:00 05:00 RBC 3.26 L Hgb 10.3 L Hct 29.7 L Monocytes % 11.5 H Sodium 131 L Chloride 93 L BUN 47 H D Creatinine 5.7 H Random Glucose 185 H Calcium 7.2 L Phosphorus C-Reactive Protein Complement C3 205 H Tot Complement (CH50) > 65 H 03/02/17 05:00 RBC Hgb Hct Monocytes % Sodium Chloride BUN Creatinine Random Glucose Calcium Phosphorus 5.4 H C-Reactive Protein 13.1 H D Complement C3 Tot Complement (CH50) impression: Staph aureus sepsis. Cellulitis left hand wrist and forearm. Diabetes mellitus type 2. ASHD status post coronary artery bypass x2. Acute renal failure with no urine output currently. Hemodialysis x2. Gout under control. Plan: followup labs. Followup infectious disease inspector filter tip and renal physicians. Continue IV antibiotics Monitor urine output Continue ICU monitoring. Followup CAT scan left arm and wrist Problem List - Problems (1) Cellulitis Code(s): L03.90 - CELLULITIS, UNSPECIFIED Qualifiers: Site of cellulitis: extremity Site of cellulitis of extremity: upper extremity Laterality: left Qualified Code(s): L03.114 - Cellulitis of left upper limb (2) Acute renal failure (ARF) Code(s): N17.9 - ACUTE KIDNEY FAILURE, UNSPECIFIED (3) CAD (coronary artery disease) Code(s): I25.10 - ATHSCL HEART DISEASE OF [place] CORONARY ARTERY W/O ANG PCTRS (4) Gout Code(s): M10.9 - GOUT, UNSPECIFIED (5) Hypertension Code(s): I10 - ESSENTIAL (PRIMARY) HYPERTENSION (6) Hyponatremia Code(s): E87.1 - HYPO-OSMOLALITY AND HYPONATREMIA
[2017-03-02] MEDS ORDERED: FUROSEMIDE 40 MG/4 ML INJECTABLE VIAL IVPUSH ONE (10:38)
[2017-03-02] MEDS ORDERED: FUROSEMIDE 100 MG/10 ML INJECTABLE VIAL IVPUSH ONE (12:00)
--- NOTE | 2017-03-02 12:29 | PN ---
Progress Note (short form) - Note Progress Note: Renal Follow up for JOE Pt seen and examined in the ICU awake and alert arm swelling and pain are improved no urine output with willett in place s/p 2nd HD yesterday with 1kg UF no fever, chills Vital Signs Temperature 98.4 F 03/02/17 10:00 Pulse Rate 86 03/02/17 10:00 Respiratory Rate 14 03/02/17 10:00 Blood Pressure 110/58 03/02/17 10:00 O2 Sat by Pulse Oximetry (%) 97 03/02/17 10:00 Intake & Output 02/27/17 02/28/17 03/01/17 03/02/17 23:59 23:59 23:59 23:59 Intake Total 2985 3680 3792 800 Output Total 45 10 0 Balance 2985 3635 3782 800 Weight 234 lb 6.4 oz 246 lb 0.574 oz Gen: NAD CVS: RRR Lungs: CTA Abd: soft NT/ND Ext: No LE edema, left wrist and hand swollen, eyrthema improved CBC, BMP 03/02/17 05:00 03/02/17 05:00 Laboratory Tests 03/02/17 03/02/17 05:00 05:00 Calcium 7.2 L Phosphorus 5.4 H Magnesium 1.9 C-Reactive Protein 13.1 H D Current Medications Acetaminophen (Tylenol -) 650 mg PO Q4H PRN PRN Reason: PAIN Last Admin: 03/02/17 09:18 Dose: 650 mg Allopurinol (Zyloprim -) 100 mg PO DAILY [facility] Last Admin: 03/02/17 09:39 Dose: 100 mg Atorvastatin Calcium (Lipitor -) 40 mg PO HS [facility] Last Admin: 03/01/17 21:02 Dose: 40 mg Cholecalciferol (Vitamin D3 -) 2,000 unit PO DAILY [facility] Last Admin: 03/02/17 09:39 Dose: 2,000 unit Ezetimibe (Zetia -) 10 mg PO DAILY [facility] Last Admin: 03/02/17 09:40 Dose: 10 mg Heparin Sodium (Porcine) (Heparin -) 5,000 unit SQ BID [facility] Last Admin: 03/02/17 09:39 Dose: 5,000 unit IV Flush (Triple Lumen Flush) 4 ml IVPUSH BID [facility] Last Admin: 09/11/17 09:41 Dose: 4 ml Nafcillin Sodium 2 gm/ (Dextrose) 100 mls @ 100 mls/hr IVPB Q4H-IV [facility] Last Admin: 03/02/17 09:38 Dose: 100 mls/hr Insulin Aspart (Novolog Vial Sliding Scale -) 1 vial SQ TIDAC [facility] PRN Reason: Protocol Last Admin: 03/02/17 11:40 Dose: 2 units Meclizine HCl (Antivert -) 25 mg PO TID PRN PRN Reason: DIZZINESS Last Admin: 03/02/17 09:40 Dose: 25 mg Metoprolol Succinate (Toprol Xl -) 12.5 mg PO DAILY [facility] Last Admin: 03/02/17 09:44 Dose: Not Given Ondansetron HCl (Zofran Injection) 4 mg IVPB Q8H PRN PRN Reason: NAUSEA Last Admin: 03/01/17 11:52 Dose: 4 mg Oxycodone HCl (Roxicodone -) 5 mg PO Q4H PRN PRN Reason: PAIN Last Admin: 03/02/17 09:20 Dose: 5 mg Polyethylene Glycol (Miralax (For Daily Use) -) 17 gm PO DAILY [facility] Last Admin: 03/02/17 09:56 Dose: 17 gm Ranitidine HCl (Zantac -) 150 mg PO BID [facility] Last Admin: 03/02/17 09:39 Dose: 150 mg Vitamin E (Vitamin E -) 400 unit PO DAILY [facility] Last Admin: 03/02/17 09:39 Dose: 400 unit A/P 71 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 #Anuric Acute Kidney Injury now with hyperkalemia secondary to ATN Remains anuric and w/o signs of renal recovery serologic work up including FANNY, Hepatitis, Complements are negative ANCAs pending no indication for dialysis today will attempt forced diuresis with Lasix 100mg IV Monitor for response for 6 hours can d/c willett this evening for HD tomorrow if no change in clinical status dose all meds for Cr Cl less then 10 Aubrey Acharya DO Problem List - Problems (1) Cellulitis Code(s): L03.90 - CELLULITIS, UNSPECIFIED Qualifiers: Site of cellulitis: extremity Site of cellulitis of extremity: upper extremity Laterality: left Qualified Code(s): L03.114 - Cellulitis of left upper limb (2) Acute renal failure (ARF) Code(s): N17.9 - ACUTE KIDNEY FAILURE, UNSPECIFIED (3) CAD (coronary artery disease) Code(s): I25.10 - ATHSCL HEART DISEASE OF [place] CORONARY ARTERY W/O ANG PCTRS (4) Hypertension Code(s): I10 - ESSENTIAL (PRIMARY) HYPERTENSION (5) Gout Code(s): M10.9 - GOUT, UNSPECIFIED (6) Leukocytosis Code(s): D72.829 - ELEVATED WHITE BLOOD CELL COUNT, UNSPECIFIED (7) Hyponatremia Code(s): E87.1 - HYPO-OSMOLALITY AND HYPONATREMIA
--- NOTE | 2017-03-02 12:57 | PN ---
Teaching Attending Note Name of Resident: Ildefonso Elizalde ATTENDING PHYSICIAN STATEMENT I saw and evaluated the patient. I reviewed the resident's note and discussed the case with the resident. I agree with the resident's findings and plan as documented. SUBJECTIVE: Patient seen and examined in ICU. Awake and alert. No CP or SOB. S/P HD yesterday. Minimal urine output. Intake & Output 02/27/17 02/28/17 03/01/17 03/02/17 23:59 23:59 23:59 23:59 Intake Total 2985 3680 3792 800 Output Total 45 10 0 Balance 2985 3635 3782 800 Weight 234 lb 6.4 oz 246 lb 0.574 oz Last Vital Signs Temp Pulse Resp BP Pulse Ox 98.4 F 92 H 19 126/51 97 03/02/17 10:00 03/02/17 12:00 03/02/17 12:00 03/02/17 12:00 03/02/17 10:00 Active Medications Acetaminophen (Tylenol -) 650 mg PO Q4H PRN PRN Reason: PAIN Last Admin: 03/02/17 09:18 Dose: 650 mg Allopurinol (Zyloprim -) 100 mg PO DAILY [facility] Last Admin: 03/02/17 09:39 Dose: 100 mg Atorvastatin Calcium (Lipitor -) 40 mg PO HS [facility] Last Admin: 03/01/17 21:02 Dose: 40 mg Cholecalciferol (Vitamin D3 -) 2,000 unit PO DAILY [facility] Last Admin: 03/02/17 09:39 Dose: 2,000 unit Ezetimibe (Zetia -) 10 mg PO DAILY [facility] Last Admin: 03/02/17 09:40 Dose: 10 mg Heparin Sodium (Porcine) (Heparin -) 5,000 unit SQ BID [facility] Last Admin: 03/02/17 09:39 Dose: 5,000 unit IV Flush (Triple Lumen Flush) 4 ml IVPUSH BID [facility] Last Admin: 03/02/17 09:41 Dose: 4 ml Nafcillin Sodium 2 gm/ (Dextrose) 100 mls @ 100 mls/hr IVPB Q4H-IV [facility] Last Admin: 03/02/17 09:38 Dose: 100 mls/hr Insulin Aspart (Novolog Vial Sliding Scale -) 1 vial SQ TIDAC [facility] PRN Reason: Protocol Last Admin: 03/02/17 11:40 Dose: 2 units Meclizine HCl (Antivert -) 25 mg PO TID PRN PRN Reason: DIZZINESS Last Admin: 03/02/17 09:40 Dose: 25 mg Metoprolol Succinate (Toprol Xl -) 12.5 mg PO DAILY [facility] Last Admin: 03/02/17 09:44 Dose: Not Given Ondansetron HCl (Zofran Injection) 4 mg IVPB Q8H PRN PRN Reason: NAUSEA Last Admin: 03/01/17 11:52 Dose: 4 mg Oxycodone HCl (Roxicodone -) 5 mg PO Q4H PRN PRN Reason: PAIN Last Admin: 03/02/17 09:20 Dose: 5 mg Polyethylene Glycol (Miralax (For Daily Use) -) 17 gm PO DAILY [facility] Last Admin: 03/02/17 09:56 Dose: 17 gm Ranitidine HCl (Zantac -) 150 mg PO BID [facility] Last Admin: 03/02/17 09:39 Dose: 150 mg Vitamin E (Vitamin E -) 400 unit PO DAILY [facility] Last Admin: 03/02/17 09:39 Dose: 400 unit Exam: General: awake, alert and cooperative HEENT: PERRL, no JVD CV: s1, s2 Pulm: diminished in bases Abd: obese Ext: WWP, L wrist improved swelling erythema Neuro: grossly intact Laboratory Results - last 24 hr 02/27/17 03/01/17 03/02/17 12:45 15:39 05:00 WBC 9.8 RBC 3.26 L Hgb 10.3 L Hct 29.7 L MCV 91.3 MCH 31.7 MCHC 34.7 RDW 15.1 Plt Count 200 D MPV 8.2 Neutrophils % 73.2 Lymphocytes % 12.1 D Monocytes % 11.5 H Eosinophils % 3.0 Basophils % 0.2 Sodium Potassium Chloride Carbon Dioxide Anion Gap BUN Creatinine POC Glucometer [phone] Random Glucose Calcium Phosphorus Magnesium C-Reactive Protein Complement C3 205 H Complement C4 36 03/02/17 03/02/17 05:00 05:00 WBC RBC Hgb Hct MCV MCH MCHC RDW Plt Count MPV Neutrophils % Lymphocytes % Monocytes % Eosinophils % Basophils % Sodium 131 L Potassium 4.3 Chloride 93 L Carbon Dioxide 25 Anion Gap 13 BUN 47 H D Creatinine 5.7 H POC Glucometer Random Glucose 185 H Calcium 7.2 L Phosphorus 5.4 H Magnesium 1.9 C-Reactive Protein 13.1 H D Complement C3 Complement C4 Problem List - Problems (1) Cellulitis Code(s): L03.90 - CELLULITIS, UNSPECIFIED Qualifiers: Site of cellulitis: extremity Site of cellulitis of extremity: upper extremity Laterality: left Qualified Code(s): L03.114 - Cellulitis of left upper limb (2) Acute renal failure (ARF) Code(s): N17.9 - ACUTE KIDNEY FAILURE, UNSPECIFIED (3) CAD (coronary artery disease) Code(s): I25.10 - ATHSCL HEART DISEASE OF [place] CORONARY ARTERY W/O ANG PCTRS (4) Gout Code(s): M10.9 - GOUT, UNSPECIFIED (5) Hypertension Code(s): I10 - ESSENTIAL (PRIMARY) HYPERTENSION (6) Hyponatremia Code(s): E87.1 - HYPO-OSMOLALITY AND HYPONATREMIA IMP: CAD S/P CABG x2 Gout on allopurinol/colchicine HTN HLD DM II Fatty liver BPH MSSA bacteremia ABX per ID O2 as needed HD per Renal Strict I & O Daily weight Glycemic control Local wound care VTE prophylaxis Dr Sandoval Critical care time spent in reviewing chart, evaluating patient and formulating plan - 35 minutes.
--- NOTE | 2017-03-02 14:31 | PN ---
Progress Note, Physician History of Present Illness: patient improving still swelling of the hand persists swelling of the scrotum noted still with pain - Current Medication List Current Medications: Active Medications Acetaminophen (Tylenol -) 650 mg PO Q4H PRN PRN Reason: PAIN Last Admin: 03/02/17 14:10 Dose: 650 mg Allopurinol (Zyloprim -) 100 mg PO DAILY [facility] Last Admin: 03/02/17 09:39 Dose: 100 mg Atorvastatin Calcium (Lipitor -) 40 mg PO HS [facility] Last Admin: 03/01/17 21:02 Dose: 40 mg Cholecalciferol (Vitamin D3 -) 2,000 unit PO DAILY [facility] Last Admin: 03/02/17 09:39 Dose: 2,000 unit Ezetimibe (Zetia -) 10 mg PO DAILY [facility] Last Admin: 03/02/17 09:40 Dose: 10 mg Heparin Sodium (Porcine) (Heparin -) 5,000 unit SQ BID [facility] Last Admin: 03/02/17 09:39 Dose: 5,000 unit IV Flush (Triple Lumen Flush) 4 ml IVPUSH BID [facility] Last Admin: 03/02/17 09:41 Dose: 4 ml Nafcillin Sodium 2 gm/ (Dextrose) 100 mls @ 100 mls/hr IVPB Q4H-IV [facility] Last Admin: 03/02/17 09:38 Dose: 100 mls/hr Insulin Aspart (Novolog Vial Sliding Scale -) 1 vial SQ TIDAC [facility] PRN Reason: Protocol Last Admin: 03/02/17 11:40 Dose: 2 units Meclizine HCl (Antivert -) 25 mg PO TID PRN PRN Reason: DIZZINESS Last Admin: 03/02/17 09:40 Dose: 25 mg Metoprolol Succinate (Toprol Xl -) 12.5 mg PO DAILY [facility] Last Admin: 03/02/17 09:44 Dose: Not Given Ondansetron HCl (Zofran Injection) 4 mg IVPB Q8H PRN PRN Reason: NAUSEA Last Admin: 03/01/17 11:52 Dose: 4 mg Oxycodone HCl (Roxicodone -) 5 mg PO Q4H PRN PRN Reason: PAIN Last Admin: 03/02/17 14:12 Dose: 5 mg Polyethylene Glycol (Miralax (For Daily Use) -) 17 gm PO DAILY [facility] Last Admin: 03/02/17 09:56 Dose: 17 gm Ranitidine HCl (Zantac -) 150 mg PO BID [facility] Last Admin: 03/02/17 09:39 Dose: 150 mg Vitamin E (Vitamin E -) 400 unit PO DAILY [facility] Last Admin: 03/02/17 09:39 Dose: 400 unit - Objective Vital Signs: Vital Signs Temperature 98.4 F 03/02/17 10:00 Pulse Rate 92 H 03/02/17 12:00 Respiratory Rate 19 03/02/17 12:00 Blood Pressure 126/51 03/02/17 12:00 O2 Sat by Pulse Oximetry (%) 97 03/02/17 10:00 Constitutional: Yes: Calm, Moderate Distress Eyes: Yes: Conjunctiva Clear Cardiovascular: Yes: Regular Rate and Rhythm Respiratory: Yes: Regular, CTA Bilaterally Gastrointestinal: Yes: Normal Bowel Sounds, Soft Musculoskeletal: Yes: WNL Extremities: Yes: Other Neurological: Yes: Alert, Oriented Psychiatric: Yes: Alert, Oriented Labs: CBC, BMP 03/02/17 05:00 03/02/17 05:00 Assessment/Plan sepsis septic left wrist joint gm positive bacteremia fever tenderness patients diagnosis is staph septic arthritis of the left wrist plan conitnue abx wbc normal monitor bp will order repeat ct scan of the wrist rest continue icu repeat blood cx negative cc 40 min
[2017-03-02 16:18] LABS: C-ANCA <1:20 titer (Neg:<1:20); MYELOPEROXIDASE ANTIBODY <9.0 U/mL (0.0-9.0); P-ANCA <1:20 titer (Neg:<1:20); PROTEINASE-3 ANTIBODY <3.5 U/mL (0.0-3.5)
[2017-03-02] MEDS: ATORVASTATIN CA 40 MG TABLET (FP) PO SCH (21:19)
[2017-03-02] MEDS ORDERED: oxyCODONE HCL 5 MG TABLET ONE (23:44)
[2017-03-03] MEDS ORDERED: PT OWN MED DRAWER 7, Y5N ONE ×4 (02:16→17:24)
[2017-03-03] MEDS: NAFCILLIN - 2 GM in DEXTROSE 5%-WATER - 100 ML IVPB SCH ×5 (02:26→17:04)
[2017-03-03] MEDS ORDERED: HEMOQUE TEST 1 EACH EACH ONE (05:17)
[2017-03-03 06:20] LABS: MCH 31.6 pg (25.7-33.7); MCHC 34.5 g/dl (32.0-35.9); MEAN CELL VOLUME 91.7 fl (80-96); MEAN PLT VOLUME 7.6 fl (7.5-11.1); PLATELET COUNT 214 K/MM3 (134-434); RDW 15.2 % (11.9-15.9); WHITE BLOOD COUNT 12.4 K/mm3 (4.0-10.0)
[2017-03-03 06:39] LABS: ALBUMIN 1.7 g/dl (3.4-5.0); ALK PHOS 128 U/L (45-117); ANION GAP 17 (8-16); BILIRUBIN,TOTAL 3.4 mg/dL (0.2-1.0); CO2 24 mmol/L (21-32); CREATININE 7.1 mg/dL (0.7-1.3); GLUCOSE,RANDOM 157 mg/dL (74-106); SGOT/AST 28 U/L (15-37); SGPT/ALT 26 U/L (12-78); TOT PROT 4.5 g/dl (6.4-8.2)
[2017-03-03] MEDS: INSULIN SLIDING SCALE (NOVOLOG) 1 VIAL SQ SCH ×3 (06:45→17:05)
[2017-03-03 06:57] LABS: CALCIUM 6.5 mg/dL (8.5-10.1)
--- NOTE | 2017-03-03 07:57 | PN ---
Physical Exam: SUBJECTIVE: Patient seen and examined. Hand less swollen, patient resting comfortably with at bedside. OBJECTIVE: Vital Signs Period Temp Pulse Resp BP Sys/Resendez Pulse Ox Last 24 Hr 98 F-98.4 F 70-92 10-19 100-131/42-61 95-100 Constitutional: nad, alert and oriented x3 Cardiovascular: Regular Rate and Rhythm Respiratory: Diminished, Rhonchi (few rhonchi at bases) Gastrointestinal: distended abdomen, some edema Genitourinary: no willett, edematous scrotum Edema: LLE: 2+, RLE: 2+ Intake & Output 02/28/17 03/01/17 03/02/17 03/03/17 23:59 23:59 23:59 23:59 Intake Total 3680 3792 1850 100 Output Total 45 10 18 Balance 3635 3782 1832 100 Weight 106.322 kg 111.6 kg 114.6 g 119.2 kg Laboratory Results - last 24 hr 02/27/17 02/27/17 03/02/17 12:45 12:45 05:47 WBC RBC Hgb Hct MCV MCH MCHC RDW Plt Count MPV Sodium Potassium Chloride Carbon Dioxide Anion Gap BUN Creatinine Creat Clearance w eGFR POC Glucometer [phone] Random Glucose Calcium Total Bilirubin AST ALT Alkaline Phosphatase Total Protein Albumin FANNY Screen Negative c-ANCA <1:20 Proteinase 3 (PR3) <3.5 p-ANCA <1:20 Atypical p-ANCA <1:20 Myeloperoxidase Ab <9.0 Glomerular Base Memb Ab 3 Complement C3 205 H Complement C4 36 Tot Complement (CH50) > 65 H Hepatitis A IgM Ab Negative Hep Bs Antigen Negative Hep B Core IgM Ab Negative Hepatitis C Ab (EIA) <0.1 03/02/17 03/03/17 03/03/17 11:26 05:00 05:00 WBC 12.4 H RBC 3.07 L Hgb 9.7 L Hct 28.1 L MCV 91.7 MCH 31.6 MCHC 34.5 RDW 15.2 Plt Count 214 MPV 7.6 Sodium 130 L Potassium 4.2 Chloride 89 L Carbon Dioxide 24 Anion Gap 17 H BUN 58 H D Creatinine 7.1 H D Creat Clearance w eGFR 7.69 POC Glucometer [phone] Random Glucose 157 H Calcium 6.5 L* Total Bilirubin 3.4 H D AST 28 D ALT 26 Alkaline Phosphatase 128 H Total Protein 4.5 L D Albumin 1.7 L D FANNY Screen c-ANCA Proteinase 3 (PR3) p-ANCA Atypical p-ANCA Myeloperoxidase Ab Glomerular Base Memb Ab Complement C3 Complement C4 Tot Complement (CH50) Hepatitis A IgM Ab Hep Bs Antigen Hep B Core IgM Ab Hepatitis C Ab (EIA) 03/03/17 05:11 WBC RBC Hgb Hct MCV MCH MCHC RDW Plt Count MPV Sodium Potassium Chloride Carbon Dioxide Anion Gap BUN Creatinine Creat Clearance w eGFR POC Glucometer [phone] Random Glucose Calcium Total Bilirubin AST ALT Alkaline Phosphatase Total Protein Albumin FANNY Screen c-ANCA Proteinase 3 (PR3) p-ANCA Atypical p-ANCA Myeloperoxidase Ab Glomerular Base Memb Ab Complement C3 Complement C4 Tot Complement (CH50) Hepatitis A IgM Ab Hep Bs Antigen Hep B Core IgM Ab Hepatitis C Ab (EIA) Active Medications Generic Name Dose Route Start Last Admin Trade Name Freq PRN Reason Stop Dose Admin Acetaminophen 650 mg 02/26/17 17:05 03/02/17 21:28 Tylenol - PO 650 mg Q4H PRN Administration PAIN Allopurinol 100 mg 02/26/17 10:58 03/02/17 09:39 Zyloprim - PO 100 mg DAILY [facility] Administration Atorvastatin Calcium 40 mg 02/25/17 22:00 03/02/17 21:19 Lipitor - PO 40 mg HS [facility] Administration Cholecalciferol 2,000 unit 02/26/17 10:00 03/02/17 09:39 Vitamin D3 - PO 2,000 unit DAILY [facility] Administration Ezetimibe 10 mg 02/26/17 10:00 03/02/17 09:40 Zetia - PO 10 mg DAILY [facility] Administration Heparin Sodium (Porcine) 5,000 unit 02/27/17 22:00 03/02/17 21:19 Heparin - SQ 5,000 unit BID [facility] Administration IV Flush 4 ml 02/28/17 22:00 03/02/17 09:41 Triple Lumen Flush IVPUSH 4 ml BID [facility] Administration Nafcillin Sodium 2 gm/ 100 mls @ 100 mls/hr 02/27/17 15:00 03/03/17 06:45 Dextrose IVPB 100 mls/hr Q4H-IV [facility] Administration Insulin Aspart 1 vial 02/27/17 10:04 03/03/17 06:45 Novolog Vial Sliding Scale - SQ Not Given TIDAC [facility] Protocol Meclizine HCl 25 mg 02/25/17 18:39 03/02/17 09:40 Antivert - PO 25 mg TID PRN Administration DIZZINESS Metoprolol Succinate 12.5 mg 02/27/17 10:59 03/02/17 09:44 Toprol Xl - PO Not Given DAILY [facility] Ondansetron HCl 4 mg 02/27/17 09:51 03/01/17 11:52 Zofran Injection IVPB 4 mg Q8H PRN Administration NAUSEA Oxycodone HCl 10 mg 03/02/17 23:38 03/02/17 23:47 Roxicodone - PO 10 mg Q4H PRN Administration PAIN Polyethylene Glycol 17 gm 02/27/17 10:15 03/02/17 09:56 Miralax (For Daily Use) - PO 17 gm DAILY [facility] Administration Ranitidine HCl 150 mg 02/25/17 22:00 03/02/17 21:19 Zantac - PO 150 mg BID [facility] Administration Vitamin E 400 unit 02/26/17 10:00 03/02/17 09:39 Vitamin E - PO 400 unit DAILY [facility] Administration ASSESSMENT/PLAN: 71 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 ID - Cellulitis - continue Nafcillin course Nephrology - Acute Kidney Injury - f/u on afternoon cmp after today's Hemodialysis - monitor urine output, creatinine - renal dose of medications Neuro - Pain - pain control with oxycodone Cardio - continue metoprolol GI - continue Insulin sliding scale DISPO - transferred to med/surg today to be monitored on floor. - DVT prophylaxis - can monitor on floor Visit type - Emergency Visit Emergency Visit: No - New Patient This patient is new to me today: No - Critical Care Critical Care patient: Yes Total Critical Care Time (in minutes): 30 Critical Care Statement: The care of this patient involved high complexity decision making to prevent further life threatening deterioration of the patient 's condition and/or to evaluate & treat vital organ system(s) failure or risk of failure.
[2017-03-03] MEDS: oxyCODONE HCL 5 MG TABLET PO PRN ×3 (09:11→21:39)
[2017-03-03] MEDS: ACETAMINOPHEN 325 MG TABLET (FP) PO PRN (09:12)
[2017-03-03] MEDS: POLYETHYLENE GLYCOL 3350 119 GM BTL PO SCH (10:38)
[2017-03-03] MEDS: ALLOPURINOL 100 MG TABLET (FP) PO SCH (10:39)
[2017-03-03] MEDS: VITAMIN E 400 INTERNATIONAL-UNITS CAPSULE (FP) PO SCH (10:41)
[2017-03-03] MEDS: TRIPLE LUMEN FLUSH 4 ML ML IVPUSH SCH ×2 (11:00→21:53)
[2017-03-03] MEDS: RANITIDINE HCL 150 MG TABLET (FP) PO SCH ×2 (11:00→21:40)
[2017-03-03] MEDS: HEPARIN NA (PORCINE) 5,000 UNITS/ML 1ML VIAL SQ SCH ×2 (11:00→21:42)
[2017-03-03] MEDS: METOPROLOL SUCCINATE 25 MG TAB.SR.24H (FP) PO SCH (11:01)
[2017-03-03] MEDS: CHOLECALCIFEROL (VITAMIN D3) 1,000 UNIT TABLET (FP) PO SCH (11:01)
[2017-03-03] MEDS: EZETIMIBE 10 MG TABLET (FP) PO SCH (11:02)
--- NOTE | 2017-03-03 11:35 | PN ---
Progress Note (short form) - Note Progress Note: Renal Follow up for JOE Pt seen and examined in the ICU awake and alert sitting in a chair no urine output willett removed deneis any sob + edema Vital Signs Temperature 98.4 F 03/03/17 10:00 Pulse Rate 80 03/03/17 10:00 Respiratory Rate 20 03/03/17 10:00 Blood Pressure 130/75 03/03/17 10:00 O2 Sat by Pulse Oximetry (%) 97 03/03/17 08:00 Intake & Output 02/28/17 03/01/17 03/02/17 03/03/17 23:59 23:59 23:59 23:59 Intake Total 3680 3792 1850 100 Output Total 45 10 18 Balance 3635 3782 1832 100 Weight 234 lb 6.4 oz 246 lb 0.574 oz 4.042 oz 262 lb 12.656 oz Gen: NAD CVS: RRR Lungs: CTA Abd: soft NT/ND Ext: No LE edema, left wrist and hand swollen, eyrthema improved CBC, BMP 03/03/17 05:00 03/03/17 05:00 Laboratory Tests 03/03/17 05:00 Calcium 6.5 L* Albumin 1.7 L D Current Medications Acetaminophen (Tylenol -) 650 mg PO Q4H PRN PRN Reason: PAIN Last Admin: 03/03/17 09:12 Dose: 650 mg Allopurinol (Zyloprim -) 100 mg PO DAILY [facility] Last Admin: 03/03/17 10:39 Dose: 100 mg Atorvastatin Calcium (Lipitor -) 40 mg PO HS [facility] Last Admin: 03/02/17 21:19 Dose: 40 mg Cholecalciferol (Vitamin D3 -) 2,000 unit PO DAILY [facility] Last Admin: 03/03/17 11:01 Dose: 2,000 unit Ezetimibe (Zetia -) 10 mg PO DAILY [facility] Last Admin: 03/03/17 11:02 Dose: 10 mg Heparin Sodium (Porcine) (Heparin -) 5,000 unit SQ BID [facility] Last Admin: 03/03/17 11:00 Dose: 5,000 unit IV Flush (Triple Lumen Flush) 4 ml IVPUSH BID [facility] Last Admin: 03/02/17 09:41 Dose: 4 ml Nafcillin Sodium 2 gm/ (Dextrose) 100 mls @ 100 mls/hr IVPB Q4H-IV [facility] Last Admin: 03/03/17 10:00 Dose: 100 mls/hr Insulin Aspart (Novolog Vial Sliding Scale -) 1 vial SQ TIDAC [facility] PRN Reason: Protocol Last Admin: 03/03/17 06:45 Dose: Not Given Meclizine HCl (Antivert -) 25 mg PO TID PRN PRN Reason: DIZZINESS Last Admin: 03/02/17 09:40 Dose: 25 mg Metoprolol Succinate (Toprol Xl -) 12.5 mg PO DAILY [facility] Last Admin: 03/03/17 11:01 Dose: Not Given Ondansetron HCl (Zofran Injection) 4 mg IVPB Q8H PRN PRN Reason: NAUSEA Last Admin: 03/01/17 11:52 Dose: 4 mg Oxycodone HCl (Roxicodone -) 10 mg PO Q4H PRN PRN Reason: PAIN Last Admin: 03/03/17 09:11 Dose: 10 mg Polyethylene Glycol (Miralax (For Daily Use) -) 17 gm PO DAILY [facility] Last Admin: 03/03/17 10:38 Dose: 17 gm Ranitidine HCl (Zantac -) 150 mg PO BID [facility] Last Admin: 03/03/17 11:00 Dose: 150 mg Vitamin E (Vitamin E -) 400 unit PO DAILY [facility] Last Admin: 03/03/17 10:41 Dose: 400 unit A/P 71 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 #Anuric Acute Kidney Injury now with hyperkalemia secondary to ATN no signs of renal recovery at this time remains anuric and did not respond to Lasix 100mg IVPB will get HD today, 3.5 hour treatment with UF goal of 2-2.5L Keep MAP> 65 dose all meds for Cr Cl less then 10 will likely need permacath insertion later this week Expect hyponatremia to improve with UF Will use normal ca bath with HD, corrected CA is WNL #Sepsis/Bactermia continue Abx as per ID repeat cultures negative Aubrey Acharya DO Problem List - Problems (1) Cellulitis Code(s): L03.90 - CELLULITIS, UNSPECIFIED Qualifiers: Site of cellulitis: extremity Site of cellulitis of extremity: upper extremity Laterality: left Qualified Code(s): L03.114 - Cellulitis of left upper limb (2) Acute renal failure (ARF) Code(s): N17.9 - ACUTE KIDNEY FAILURE, UNSPECIFIED (3) CAD (coronary artery disease) Code(s): I25.10 - ATHSCL HEART DISEASE OF [place] CORONARY ARTERY W/O ANG PCTRS (4) Hypertension Code(s): I10 - ESSENTIAL (PRIMARY) HYPERTENSION (5) Gout Code(s): M10.9 - GOUT, UNSPECIFIED (6) Leukocytosis Code(s): D72.829 - ELEVATED WHITE BLOOD CELL COUNT, UNSPECIFIED (7) Hyponatremia Code(s): E87.1 - HYPO-OSMOLALITY AND HYPONATREMIA
--- NOTE | 2017-03-03 12:00 | PN ---
Teaching Attending Note Name of Resident: Ildefonso Elizalde ATTENDING PHYSICIAN STATEMENT I saw and evaluated the patient. I reviewed the resident's note and discussed the case with the resident. I agree with the resident's findings and plan as documented. SUBJECTIVE: Pt seen and examined in the ICU. No response to lasix IVP yesterday, only 18mL output. Currently receiving HD. Reports generalized swelling, no shortness of breath or chest pain. No fevers or chills. OBJECTIVE: Last Vital Signs Temp Pulse Resp BP Pulse Ox 98.8 F 95 H 18 119/47 97 03/03/17 10:55 03/03/17 11:30 03/03/17 11:30 03/03/17 11:30 03/03/17 08:00 Intake & Output 02/28/17 03/01/17 03/02/17 03/03/17 23:59 23:59 23:59 23:59 Intake Total 3680 3792 1850 100 Output Total 45 10 18 Balance 3635 3782 1832 100 Weight 234 lb 6.4 oz 246 lb 0.574 oz 4.042 oz 262 lb 12.656 oz Gen: NAD at rest Heart: RRR Lung: decreased breath sounds at the bases Abd: soft, nontender Ext: + edema CBC, BMP 03/03/17 05:00 03/03/17 05:00 Active Medications Acetaminophen (Tylenol -) 650 mg PO Q4H PRN PRN Reason: PAIN Last Admin: 03/03/17 09:12 Dose: 650 mg Allopurinol (Zyloprim -) 100 mg PO DAILY [facility] Last Admin: 03/03/17 10:39 Dose: 100 mg Atorvastatin Calcium (Lipitor -) 40 mg PO HS [facility] Last Admin: 03/02/17 21:19 Dose: 40 mg Cholecalciferol (Vitamin D3 -) 2,000 unit PO DAILY [facility] Last Admin: 03/03/17 11:01 Dose: 2,000 unit Ezetimibe (Zetia -) 10 mg PO DAILY [facility] Last Admin: 03/03/17 11:02 Dose: 10 mg Heparin Sodium (Porcine) (Heparin -) 5,000 unit SQ BID [facility] Last Admin: 03/03/17 11:00 Dose: 5,000 unit IV Flush (Triple Lumen Flush) 4 ml IVPUSH BID [facility] Last Admin: 09/11/17 09:41 Dose: 4 ml Nafcillin Sodium 2 gm/ (Dextrose) 100 mls @ 100 mls/hr IVPB Q4H-IV [facility] Last Admin: 03/03/17 10:00 Dose: 100 mls/hr Insulin Aspart (Novolog Vial Sliding Scale -) 1 vial SQ TIDAC [facility] PRN Reason: Protocol Last Admin: 03/03/17 06:45 Dose: Not Given Meclizine HCl (Antivert -) 25 mg PO TID PRN PRN Reason: DIZZINESS Last Admin: 03/02/17 09:40 Dose: 25 mg Metoprolol Succinate (Toprol Xl -) 12.5 mg PO DAILY [facility] Last Admin: 03/03/17 11:01 Dose: Not Given Ondansetron HCl (Zofran Injection) 4 mg IVPB Q8H PRN PRN Reason: NAUSEA Last Admin: 03/01/17 11:52 Dose: 4 mg Oxycodone HCl (Roxicodone -) 10 mg PO Q4H PRN PRN Reason: PAIN Last Admin: 03/03/17 09:11 Dose: 10 mg Polyethylene Glycol (Miralax (For Daily Use) -) 17 gm PO DAILY [facility] Last Admin: 03/03/17 10:38 Dose: 17 gm Ranitidine HCl (Zantac -) 150 mg PO BID [facility] Last Admin: 03/03/17 11:00 Dose: 150 mg Vitamin E (Vitamin E -) 400 unit PO DAILY [facility] Last Admin: 03/03/17 10:41 Dose: 400 unit ASSESSMENT AND PLAN: Cellulitis MSSA Bacteremia Acute Kidney Injury requiring HD Hyponatremia CAD s/p CABG Gout HTN DM Hyperlipidemia - continue antibiotics - HD per renal with ultrafiltration - monitor urine output, creatinine - renal dose of medications - pain control - DVT prophylaxis - can monitor on floor
[2017-03-03] MEDS ORDERED: INSULIN (NOVOLOG) ASPART 100 UNITS/ML 10ML VIAL ONE (13:50)
--- NOTE | 2017-03-03 14:25 | PN ---
Progress Note, Physician Chief Complaint: Tired and worried but not SOB. Appetite fair. History of Present Illness: Patient with Acute Cellulitis and MSSA sepsis is receiving HD for the third time. Still no urine output.Feels mildly depressed regarding hid medical problems. Still quite painful in his left wrist and not moving his fingers well but less edema and erythema in the hand. Followed by Public Relations Assistant, ID and renal MD's. BUN 58 Creat 7.1 Alb down to 1.7 and Calcium 6.5. Repeat lab: AM - Current Medication List Current Medications: Active Medications Acetaminophen (Tylenol -) 650 mg PO Q4H PRN PRN Reason: PAIN Last Admin: 03/03/17 09:12 Dose: 650 mg Allopurinol (Zyloprim -) 100 mg PO DAILY [facility] Last Admin: 03/03/17 10:39 Dose: 100 mg Atorvastatin Calcium (Lipitor -) 40 mg PO HS [facility] Last Admin: 03/02/17 21:19 Dose: 40 mg Cholecalciferol (Vitamin D3 -) 2,000 unit PO DAILY [facility] Last Admin: 03/03/17 11:01 Dose: 2,000 unit Ezetimibe (Zetia -) 10 mg PO DAILY [facility] Last Admin: 03/03/17 11:02 Dose: 10 mg Heparin Sodium (Porcine) (Heparin -) 5,000 unit SQ BID [facility] Last Admin: 03/03/17 11:00 Dose: 5,000 unit IV Flush (Triple Lumen Flush) 4 ml IVPUSH BID [facility] Last Admin: 03/02/17 09:41 Dose: 4 ml Nafcillin Sodium 2 gm/ (Dextrose) 100 mls @ 100 mls/hr IVPB Q4H-IV [facility] Last Admin: 03/03/17 10:00 Dose: 100 mls/hr Insulin Aspart (Novolog Vial Sliding Scale -) 1 vial SQ TIDAC [facility] PRN Reason: Protocol Last Admin: 03/03/17 06:45 Dose: Not Given Meclizine HCl (Antivert -) 25 mg PO TID PRN PRN Reason: DIZZINESS Last Admin: 03/02/17 09:40 Dose: 25 mg Metoprolol Succinate (Toprol Xl -) 12.5 mg PO DAILY [facility] Last Admin: 03/03/17 11:01 Dose: Not Given Ondansetron HCl (Zofran Injection) 4 mg IVPB Q8H PRN PRN Reason: NAUSEA Last Admin: 03/01/17 11:52 Dose: 4 mg Oxycodone HCl (Roxicodone -) 10 mg PO Q3H PRN PRN Reason: PAIN Polyethylene Glycol (Miralax (For Daily Use) -) 17 gm PO DAILY [facility] Last Admin: 03/03/17 10:38 Dose: 17 gm Ranitidine HCl (Zantac -) 150 mg PO BID [facility] Last Admin: 03/03/17 11:00 Dose: 150 mg Vitamin E (Vitamin E -) 400 unit PO DAILY [facility] Last Admin: 03/03/17 10:41 Dose: 400 unit - Objective Vital Signs: Vital Signs Temperature 98.8 F 03/03/17 10:55 Pulse Rate 97 H 03/03/17 14:00 Respiratory Rate 18 03/03/17 14:00 Blood Pressure 125/71 03/03/17 14:00 O2 Sat by Pulse Oximetry (%) 97 03/03/17 09:00 Constitutional: Yes: Calm Eyes: Yes: Conjunctiva Clear Cardiovascular: Yes: Regular Rate and Rhythm Respiratory: Yes: Diminished, Rhonchi (few rhonchi at bases) Gastrointestinal: Yes: Soft, Distention Genitourinary: Yes: Scrotal Edema. No: Taylor Present Edema: LLE: 2+, RLE: 2+ Neurological: Yes: Alert, Oriented ...Motor Strength: LUE (still pain and difficulty with flexing or extending fingers.) Labs: CBC, BMP 03/03/17 05:00 03/03/17 05:00 Problem List - Problems (1) Cellulitis Assessment/Plan: Left hand, wrist and forearm; still painful swelling, warm and erythematous Code(s): L03.90 - CELLULITIS, UNSPECIFIED Qualifiers: Site of cellulitis: extremity Site of cellulitis of extremity: upper extremity Laterality: left Qualified Code(s): L03.114 - Cellulitis of left upper limb (2) Acute renal failure (ARF) Assessment/Plan: 3rd HD today Still no urine output Code(s): N17.9 - ACUTE KIDNEY FAILURE, UNSPECIFIED (3) CAD (coronary artery disease) Assessment/Plan: S/P CABG X2 Code(s): I25.10 - ATHSCL HEART DISEASE OF [place] CORONARY ARTERY W/O ANG PCTRS (4) Gout Assessment/Plan: 3.9 uric acid Code(s): M10.9 - GOUT, UNSPECIFIED (5) Hypertension Assessment/Plan: Stable BP readings Code(s): I10 - ESSENTIAL (PRIMARY) HYPERTENSION (6) Hyponatremia Assessment/Plan: Being followed in lab tests. Code(s): E87.1 - HYPO-OSMOLALITY AND HYPONATREMIA
--- NOTE | 2017-03-03 14:55 | PN ---
Progress Note, Physician History of Present Illness: stable dialyzed improving still no urine output - Current Medication List Current Medications: Active Medications Acetaminophen (Tylenol -) 650 mg PO Q4H PRN PRN Reason: PAIN Last Admin: 03/03/17 09:12 Dose: 650 mg Allopurinol (Zyloprim -) 100 mg PO DAILY [facility] Last Admin: 03/03/17 10:39 Dose: 100 mg Atorvastatin Calcium (Lipitor -) 40 mg PO HS [facility] Last Admin: 03/02/17 21:19 Dose: 40 mg Cholecalciferol (Vitamin D3 -) 2,000 unit PO DAILY [facility] Last Admin: 03/03/17 11:01 Dose: 2,000 unit Ezetimibe (Zetia -) 10 mg PO DAILY [facility] Last Admin: 03/03/17 11:02 Dose: 10 mg Heparin Sodium (Porcine) (Heparin -) 5,000 unit SQ BID [facility] Last Admin: 03/03/17 11:00 Dose: 5,000 unit IV Flush (Triple Lumen Flush) 4 ml IVPUSH BID [facility] Last Admin: 03/03/17 11:00 Dose: 4 ml Nafcillin Sodium 2 gm/ (Dextrose) 100 mls @ 100 mls/hr IVPB Q4H-IV [facility] Last Admin: 03/03/17 14:24 Dose: 100 mls/hr Insulin Aspart (Novolog Vial Sliding Scale -) 1 vial SQ TIDAC [facility] PRN Reason: Protocol Last Admin: 03/03/17 13:00 Dose: 4 units Meclizine HCl (Antivert -) 25 mg PO TID PRN PRN Reason: DIZZINESS Last Admin: 03/02/17 09:40 Dose: 25 mg Metoprolol Succinate (Toprol Xl -) 12.5 mg PO DAILY [facility] Last Admin: 03/03/17 11:01 Dose: Not Given Ondansetron HCl (Zofran Injection) 4 mg IVPB Q8H PRN PRN Reason: NAUSEA Last Admin: 03/01/17 11:52 Dose: 4 mg Oxycodone HCl (Roxicodone -) 10 mg PO Q3H PRN PRN Reason: PAIN Polyethylene Glycol (Miralax (For Daily Use) -) 17 gm PO DAILY [facility] Last Admin: 03/03/17 10:38 Dose: 17 gm Ranitidine HCl (Zantac -) 150 mg PO BID [facility] Last Admin: 03/03/17 11:00 Dose: 150 mg Vitamin E (Vitamin E -) 400 unit PO DAILY [facility] Last Admin: 03/03/17 10:41 Dose: 400 unit - Objective Vital Signs: Vital Signs Temperature 98.8 F 03/03/17 10:55 Pulse Rate 91 H 03/03/17 14:35 Respiratory Rate 18 03/03/17 14:35 Blood Pressure 133/61 03/03/17 14:35 O2 Sat by Pulse Oximetry (%) 97 03/03/17 09:00 Constitutional: Yes: No Distress, Calm Cardiovascular: Yes: Regular Rate and Rhythm Respiratory: Yes: Regular, CTA Bilaterally Gastrointestinal: Yes: Normal Bowel Sounds, Soft Musculoskeletal: Yes: Other Extremities: Yes: Other (left wrist still swollen,tender) Neurological: Yes: Alert, Oriented Psychiatric: Yes: Alert, Oriented Labs: CBC, BMP 03/03/17 05:00 03/03/17 05:00 Assessment/Plan sepsis septic left wrist joint gm positive bacteremia fever tenderness patients diagnosis is staph septic arthritis of the left wrist plan conitnue abx dialysis await for renal function to improve rest continue icu repeat blood cx negative cc 40 min
[2017-03-03] MEDS ORDERED: ACETAMINOPHEN 325 MG TABLET (FP) PO PRN (17:23)
[2017-03-03] MEDS ORDERED: MECLIZINE HCL 25 MG TABLET (FP) PO PRN (17:23)
[2017-03-03] MEDS ORDERED: ONDANSETRON 4 MG/2 ML VIAL IVPB PRN (17:23)
[2017-03-03] MEDS ORDERED: NAFCILLIN - 2 GM in DEXTROSE 5%-WATER 100 ML IVPB SCH (18:00)
[2017-03-03] MEDS: ATORVASTATIN CA 40 MG TABLET (FP) PO SCH (21:39)
[2017-03-03] MEDS: NAFCILLIN - 2 GM in DEXTROSE 5%-WATER 100 ML IVPB SCH (21:40)
[2017-03-04] MEDS: oxyCODONE HCL 5 MG TABLET PO PRN ×6 (00:40→21:23)
[2017-03-04] MEDS: NAFCILLIN - 2 GM in DEXTROSE 5%-WATER 100 ML IVPB SCH ×6 (02:56→21:25)
[2017-03-04] MEDS: INSULIN SLIDING SCALE (NOVOLOG) 1 VIAL SQ SCH ×3 (06:05→17:08)
[2017-03-04 06:34] LABS: MCH 31.3 pg (25.7-33.7); MCHC 34.4 g/dl (32.0-35.9); MEAN PLT VOLUME 7.4 fl (7.5-11.1); PLATELET COUNT 257 K/MM3 (134-434); RDW 15.4 % (11.9-15.9); WHITE BLOOD COUNT 14.4 K/mm3 (4.0-10.0)
[2017-03-04 06:56] LABS: ANION GAP 12 (8-16); CALCIUM 7.2 mg/dL (8.5-10.1); CO2 28 mmol/L (21-32); GLUCOSE,RANDOM 148 mg/dL (74-106); MAGNESIUM 2.2 mg/dL (1.8-2.4)
[2017-03-04 07:31] LABS: TOTAL CELLS COUNTED 100
--- NOTE | 2017-03-04 09:08 | PN ---
Progress Note (short form) - Note Progress Note: Patient seen and examined today. Full note to follow. left hand eleanor more swollen today and erythematous WBC up to 14,000 Await F/U ID and Orthopedic MD's. Problem List - Problems (1) Cellulitis Code(s): L03.90 - CELLULITIS, UNSPECIFIED Qualifiers: Site of cellulitis: extremity Site of cellulitis of extremity: upper extremity Laterality: left Qualified Code(s): L03.114 - Cellulitis of left upper limb (2) Acute renal failure (ARF) Code(s): N17.9 - ACUTE KIDNEY FAILURE, UNSPECIFIED Qualifiers: Acute renal failure type: unspecified Qualified Code(s): N17.9 - Acute kidney failure, unspecified (3) CAD (coronary artery disease) Code(s): I25.10 - ATHSCL HEART DISEASE OF [place] CORONARY ARTERY W/O ANG PCTRS Qualifiers: Coronary Disease-Associated Artery/Lesion type: crow artery [place] vs. transplanted heart: crow heart Associated angina: with unstable angina Qualified Code(s): I25.110 - Atherosclerotic heart disease of [place] coronary artery with unstable angina pectoris (4) Gout Code(s): M10.9 - GOUT, UNSPECIFIED (5) Hypertension Code(s): I10 - ESSENTIAL (PRIMARY) HYPERTENSION Qualifiers: Hypertension type: essential hypertension Qualified Code(s): I10 - Essential (primary) hypertension (6) Hyponatremia Code(s): E87.1 - HYPO-OSMOLALITY AND HYPONATREMIA
[2017-03-04] MEDS ORDERED: PT OWN MED DRAWER 7, Y5N ONE ×3 (09:11→20:56)
[2017-03-04] MEDS: HEPARIN NA (PORCINE) 5,000 UNITS/ML 1ML VIAL SQ SCH ×2 (09:55→21:23)
[2017-03-04] MEDS: TRIPLE LUMEN FLUSH 4 ML ML IVPUSH SCH ×2 (09:56→21:24)
[2017-03-04] MEDS: POLYETHYLENE GLYCOL 3350 119 GM BTL PO SCH (09:56)
[2017-03-04] MEDS: CHOLECALCIFEROL (VITAMIN D3) 1,000 UNIT TABLET (FP) PO SCH (09:56)
[2017-03-04] MEDS: ALLOPURINOL 100 MG TABLET (FP) PO SCH (09:57)
[2017-03-04] MEDS: RANITIDINE HCL 150 MG TABLET (FP) PO SCH ×2 (09:57→21:24)
[2017-03-04] MEDS: EZETIMIBE 10 MG TABLET (FP) PO SCH (09:57)
[2017-03-04] MEDS: VITAMIN E 400 INTERNATIONAL-UNITS CAPSULE (FP) PO SCH (09:57)
[2017-03-04] MEDS: METOPROLOL SUCCINATE 25 MG TAB.SR.24H (FP) PO SCH (10:00)
--- NOTE | 2017-03-04 10:51 | PN ---
Progress Note (short form) - Note Progress Note: Pt seen and examined. Over the past week the patient's left forearm, wrist, and hand swelling, erythema, tenderness, pain with motion all improved, although not back to normal. Over the past 2-3 days he is getting more swollen, and the area of erythema is spreading. No systemic symptoms. WBC increasing AVSS PE Still no defined fluid collection. + cellulitis over the dorsum of the left hand, wrist, and dorso-ulnar distal forearm, but much better than last week. + tender to palpation but still much better than last week + moderate swelling, but again, better than last week No tenderness, erythema, or swelling over the entire volar aspect of the LUE Imp Recurrent cellulitis on the dorsum of the left hand, ulnar/dorsal wrist, and distal dorsal forearm. I still do not feel or see a defined fluid collection. I believe he also is having trouble adequately draining the fluid in the soft tissues of the left arm bc of the previous vein harvesting for the CABG Rec Repeat CT scan left forearm, wrist, hand (no gadolinium bc of renal failure, no MRI bc of metallic clips in his arm) I would consider surgery (open I & D) if there is a defined abscess/ pocket of pus If not, then there is no surgical option for the infection/cellulitis, and I would just continue the IV antibiotics as per PMD and ID Strict/better elevation to help the poor vascular drainage of the arm
[2017-03-04] MEDS ORDERED: FUROSEMIDE 40 MG/4 ML INJECTABLE VIAL IVPB ONE (11:15)
--- NOTE | 2017-03-04 12:30 | PN ---
Progress Note (short form) - Note Progress Note: Vascular Surgery Pt seen and examined. Spoke to at bedside as well. Pt for PC on thursday afternoon. Pt with tialysis cath in place. Jarad Forrester DO
--- NOTE | 2017-03-04 13:08 | PN ---
Progress Note, Physician History of Present Illness: stable no new issue wrist and hand swelling still present - Current Medication List Current Medications: Active Medications Acetaminophen (Tylenol -) 650 mg PO Q4H PRN PRN Reason: PAIN Allopurinol (Zyloprim -) 100 mg PO DAILY [facility] Last Admin: 03/04/17 09:57 Dose: 100 mg Atorvastatin Calcium (Lipitor -) 40 mg PO HS [facility] Last Admin: 03/03/17 21:39 Dose: 40 mg Cholecalciferol (Vitamin D3 -) 2,000 unit PO DAILY [facility] Last Admin: 03/04/17 09:56 Dose: 2,000 unit Ezetimibe (Zetia -) 10 mg PO DAILY [facility] Last Admin: 03/04/17 09:57 Dose: 10 mg Heparin Sodium (Porcine) (Heparin -) 5,000 unit SQ BID [facility] Last Admin: 03/04/17 09:55 Dose: 5,000 unit IV Flush (Triple Lumen Flush) 4 ml IVPUSH BID [facility] Last Admin: 03/04/17 09:56 Dose: 4 ml Nafcillin Sodium 2 gm/ (Dextrose) 100 mls @ 100 mls/hr IVPB Q4H-IV [facility] Last Admin: 03/04/17 09:56 Dose: 100 mls/hr Insulin Aspart (Novolog Vial Sliding Scale -) 1 vial SQ TIDAC [facility] PRN Reason: Protocol Last Admin: 03/04/17 12:22 Dose: 2 units Meclizine HCl (Antivert -) 25 mg PO TID PRN PRN Reason: DIZZINESS Metoprolol Succinate (Toprol Xl -) 12.5 mg PO DAILY [facility] Last Admin: 03/04/17 10:00 Dose: 12.5 mg Ondansetron HCl (Zofran Injection) 4 mg IVPB Q8H PRN PRN Reason: NAUSEA Oxycodone HCl (Roxicodone -) 10 mg PO Q3H PRN PRN Reason: PAIN Last Admin: 03/04/17 09:55 Dose: 10 mg Polyethylene Glycol (Miralax (For Daily Use) -) 17 gm PO DAILY [facility] Last Admin: 03/04/17 09:56 Dose: Not Given Ranitidine HCl (Zantac -) 150 mg PO BID [facility] Last Admin: 03/04/17 09:57 Dose: 150 mg Vitamin E (Vitamin E -) 400 unit PO DAILY [facility] Last Admin: 03/04/17 09:57 Dose: 400 unit - Objective Vital Signs: Vital Signs Temperature 97.8 F 03/04/17 10:00 Pulse Rate 85 03/04/17 10:00 Respiratory Rate 18 03/04/17 10:00 Blood Pressure 140/66 03/04/17 10:00 O2 Sat by Pulse Oximetry (%) 99 03/04/17 09:00 Constitutional: Yes: No Distress, Calm Cardiovascular: Yes: Regular Rate and Rhythm Respiratory: Yes: Regular, CTA Bilaterally Gastrointestinal: Yes: Normal Bowel Sounds, Soft Musculoskeletal: Yes: Other Extremities: Yes: Other (wrist swelling present) Integumentary: Yes: Erythema Neurological: Yes: Alert, Oriented Psychiatric: Yes: Alert, Oriented Labs: CBC, BMP 03/04/17 06:00 03/04/17 06:00 Assessment/Plan sepsis septic left wrist joint gm positive bacteremia fever tenderness patients diagnosis is staph septic arthritis of the left wrist plan conitnue abx dialysis await for renal function to improve rest continue icu will again repeat blood cx
--- NOTE | 2017-03-04 16:03 | PN ---
Progress Note (short form) - Note Progress Note: Renal Follow up for JOE Pt seen and examined at the bedside remains anuric overnight getting IV laisx now denies any sob, chest pain, abd pain s/p CT of the upper extremity Vital Signs Temperature 98.0 F 03/04/17 13:59 Pulse Rate 83 03/04/17 13:59 Respiratory Rate 20 03/04/17 13:59 Blood Pressure 140/76 03/04/17 13:59 O2 Sat by Pulse Oximetry (%) 99 03/04/17 09:00 Intake & Output 03/01/17 03/02/17 03/03/17 03/04/17 23:59 23:59 23:59 23:59 Intake Total 3792 1850 1820 850 Output Total 10 18 0 Balance 3782 1832 1820 850 Weight 246 lb 0.574 oz 4.042 oz 262 lb 12.656 oz 257 lb 3.2 oz Gen: NAD CVS: RRR Lungs: CTA Abd: soft NT/ND Ext: No LE edema, left wrist and hand swollen, eyrthema improved CBC, BMP 03/04/17 06:00 03/04/17 06:00 Current Medications Acetaminophen (Tylenol -) 650 mg PO Q4H PRN PRN Reason: PAIN Allopurinol (Zyloprim -) 100 mg PO DAILY [facility] Last Admin: 03/04/17 09:57 Dose: 100 mg Atorvastatin Calcium (Lipitor -) 40 mg PO HS [facility] Last Admin: 03/03/17 21:39 Dose: 40 mg Cholecalciferol (Vitamin D3 -) 2,000 unit PO DAILY [facility] Last Admin: 03/04/17 09:56 Dose: 2,000 unit Ezetimibe (Zetia -) 10 mg PO DAILY [facility] Last Admin: 03/04/17 09:57 Dose: 10 mg Heparin Sodium (Porcine) (Heparin -) 5,000 unit SQ BID [facility] Last Admin: 03/04/17 09:55 Dose: 5,000 unit IV Flush (Triple Lumen Flush) 4 ml IVPUSH BID [facility] Last Admin: 03/04/17 09:56 Dose: 4 ml Nafcillin Sodium 2 gm/ (Dextrose) 100 mls @ 100 mls/hr IVPB Q4H-IV [facility] Last Admin: 03/04/17 14:07 Dose: 100 mls/hr Insulin Aspart (Novolog Vial Sliding Scale -) 1 vial SQ TIDAC [facility] PRN Reason: Protocol Last Admin: 03/04/17 12:22 Dose: 2 units Meclizine HCl (Antivert -) 25 mg PO TID PRN PRN Reason: DIZZINESS Metoprolol Succinate (Toprol Xl -) 12.5 mg PO DAILY [facility] Last Admin: 03/04/17 10:00 Dose: 12.5 mg Ondansetron HCl (Zofran Injection) 4 mg IVPB Q8H PRN PRN Reason: NAUSEA Oxycodone HCl (Roxicodone -) 10 mg PO Q3H PRN PRN Reason: PAIN Last Admin: 03/04/17 14:05 Dose: 10 mg Polyethylene Glycol (Miralax (For Daily Use) -) 17 gm PO DAILY [facility] Last Admin: 03/04/17 09:56 Dose: Not Given Ranitidine HCl (Zantac -) 150 mg PO BID [facility] Last Admin: 03/04/17 09:57 Dose: 150 mg Vitamin E (Vitamin E -) 400 unit PO DAILY [facility] Last Admin: 03/04/17 09:57 Dose: 400 unit A/P 71 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 #Anuric Acute Kidney Injury now with hyperkalemia secondary to ATN remains anuric with high bun/Cr will require continued dialysis for the time being will attempt to convert to non-oliguric state with high dose IV lasix plan for dialysis tomorrow with UF as tolerated will need tunneled HD catheter placement, vascular was consulted continue to dose all meds for CrCl less then 10 would avoid IV contrast or MRI contrast because of acute renal failure change diet to renal diet Aubrey Acharya DO Problem List - Problems (1) Cellulitis Code(s): L03.90 - CELLULITIS, UNSPECIFIED Qualifiers: Site of cellulitis: extremity Site of cellulitis of extremity: upper extremity Laterality: left Qualified Code(s): L03.114 - Cellulitis of left upper limb (2) Acute renal failure (ARF) Code(s): N17.9 - ACUTE KIDNEY FAILURE, UNSPECIFIED (3) CAD (coronary artery disease) Code(s): I25.10 - ATHSCL HEART DISEASE OF [place] CORONARY ARTERY W/O ANG PCTRS (4) Hypertension Code(s): I10 - ESSENTIAL (PRIMARY) HYPERTENSION (5) Gout Code(s): M10.9 - GOUT, UNSPECIFIED (6) Leukocytosis Code(s): D72.829 - ELEVATED WHITE BLOOD CELL COUNT, UNSPECIFIED (7) Hyponatremia Code(s): E87.1 - HYPO-OSMOLALITY AND HYPONATREMIA
[2017-03-04] MEDS: ATORVASTATIN CA 40 MG TABLET (FP) PO SCH (21:24)
[2017-03-05] MEDS ORDERED: PT OWN MED DRAWER 7, Y5N ONE ×6 (01:43→21:04)
[2017-03-05] MEDS: NAFCILLIN - 2 GM in DEXTROSE 5%-WATER 100 ML IVPB SCH ×6 (01:56→21:44)
[2017-03-05] MEDS: oxyCODONE HCL 5 MG TABLET PO PRN ×5 (01:56→21:45)
[2017-03-05] MEDS: INSULIN SLIDING SCALE (NOVOLOG) 1 VIAL SQ SCH ×3 (06:29→17:23)
[2017-03-05] MEDS: TRIPLE LUMEN FLUSH 4 ML ML IVPUSH SCH ×2 (07:00→21:45)
--- NOTE | 2017-03-05 07:29 | SPA.PREOP ---
- PRE-OP NOTE Dx: JOE Planned Procedure: Permacath Insertion Surgeon: Bruce Forrester DO Consent: o be obtained after surgeon explains all risks, benefits and alternatives. Last Vital Signs Temp Pulse Resp BP Pulse Ox 98.4 F 75 18 134/55 98 03/05/17 06:00 03/05/17 06:00 03/05/17 06:00 03/05/17 06:00 03/04/17 21:00 Lab Results WBC 14.4 K/mm3 (4.0-10.0) H 03/04/17 06:00 RBC 3.24 M/mm3 (4.00-5.60) L 03/04/17 06:00 Hgb 10.2 GM/dL (11.7-16.9) L 03/04/17 06:00 Hct 29.5 % (35.4-49) L 03/04/17 06:00 MCV 91.0 fl (80-96) 03/04/17 06:00 MCHC 34.4 g/dl (32.0-35.9) 03/04/17 06:00 RDW 15.4 % (11.9-15.9) 03/04/17 06:00 Plt Count 257 K/MM3 (134-434) D 03/04/17 06:00 Sodium 133 mmol/L (136-145) L 03/04/17 06:00 Potassium 4.0 mmol/L (3.5-5.1) 03/04/17 06:00 Chloride 93 mmol/L (98-107) L 03/04/17 06:00 Carbon Dioxide 28 mmol/L (21-32) 03/04/17 06:00 Anion Gap 12 (8-16) 03/04/17 06:00 BUN 47 mg/dL (7-18) H 03/04/17 06:00 Creatinine 6.0 mg/dL (0.7-1.3) H 03/04/17 06:00 Random Glucose 148 mg/dL (74-106) H 03/04/17 06:00 Calcium 7.2 mg/dL (8.5-10.1) L 03/04/17 06:00 - ASSESSMENT/PLAN Problem List - Problems (1) Acute renal failure (ARF) Assessment/Plan: 1. NPO after midnight except PO meds 2. GI/DVT PPX 3. Coags 4. Type and Screen 5. Medical optimization / clearance Code(s): N17.9 - ACUTE KIDNEY FAILURE, UNSPECIFIED Visit type - Case Type Case Type: ED Admission - New patient This patient is new to me today: Yes Date on this admission: 03/05/17
[2017-03-05 07:34] LABS: MCHC 34.1 g/dl (32.0-35.9); MEAN CELL VOLUME 90.6 fl (80-96); MEAN PLT VOLUME 7.1 fl (7.5-11.1); PLATELET COUNT 210 K/MM3 (134-434); RDW 15.4 % (11.9-15.9); WHITE BLOOD COUNT 14.2 K/mm3 (4.0-10.0)
[2017-03-05 07:42] LABS: ANION GAP 11 (8-16); CALCIUM 7.3 mg/dL (8.5-10.1); CO2 27 mmol/L (21-32); CREATININE 7.4 mg/dL (0.7-1.3); GLUCOSE,RANDOM 150 mg/dL (74-106); MAGNESIUM 2.4 mg/dL (1.8-2.4)
[2017-03-05 08:51] LABS: BASOPHIL (MANUAL) 0 % (0-2.0); PLATELET ESTIMATE ADEQUATE (NORMAL)
--- NOTE | 2017-03-05 09:08 | PN ---
Progress Note (short form) - Note Progress Note: Ortho Pt having permacath placement this am. Pt was not examined as he was in OR Repeat CT scan showed non-specific soft tissue edema unchanged from previous CT , with NO definite fluid collections noted. a/p Discussed in detail with Dr. Ortega, continues to not have fluid collection/ abscess. No surgical intervention presently will continue to monitor Strict elevation Continue abx as per ID will follow up once pt returns from OR
[2017-03-05 09:33] LABS: PHOSPHOROUS 8.4 mg/dL (2.5-4.9)
[2017-03-05 09:48] LABS: INR 1.27 (0.82-1.09)
--- NOTE | 2017-03-05 11:23 | PN ---
Progress Note (short form) - Note Progress Note: Awake and alert on HD. Hand/arm feels better. 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 No CP or SOB. Intake & Output 03/02/17 03/03/17 03/04/17 03/05/17 23:59 23:59 23:59 23:59 Intake Total 1850 1820 1800 550 Output Total 18 0 Balance 1832 1820 1800 550 Weight 4.042 oz 262 lb 12.656 oz 257 lb 3.2 oz 260 lb 6.4 oz Last Vital Signs Temp Pulse Resp BP Pulse Ox 98.4 F 85 18 144/65 98 03/05/17 08:45 03/05/17 08:50 03/05/17 08:50 03/05/17 08:50 03/04/17 21:00 Active Medications Acetaminophen (Tylenol -) 650 mg PO Q4H PRN PRN Reason: PAIN Allopurinol (Zyloprim -) 100 mg PO DAILY [facility] Last Admin: 03/04/17 09:57 Dose: 100 mg Atorvastatin Calcium (Lipitor -) 40 mg PO HS [facility] Last Admin: 03/04/17 21:24 Dose: 40 mg Cholecalciferol (Vitamin D3 -) 2,000 unit PO DAILY [facility] Last Admin: 03/04/17 09:56 Dose: 2,000 unit Ezetimibe (Zetia -) 10 mg PO DAILY [facility] Last Admin: 03/04/17 09:57 Dose: 10 mg Heparin Sodium (Porcine) (Heparin -) 5,000 unit SQ BID [facility] Last Admin: 03/04/17 21:23 Dose: 5,000 unit IV Flush (Triple Lumen Flush) 4 ml IVPUSH BID [facility] Last Admin: 03/05/17 07:00 Dose: 4 ml Nafcillin Sodium 2 gm/ (Dextrose) 100 mls @ 100 mls/hr IVPB Q4H-IV [facility] Last Admin: 03/05/17 10:33 Dose: 100 mls/hr Insulin Aspart (Novolog Vial Sliding Scale -) 1 vial SQ TIDAC [facility] PRN Reason: Protocol Last Admin: 03/05/17 06:29 Dose: Not Given Meclizine HCl (Antivert -) 25 mg PO TID PRN PRN Reason: DIZZINESS Metoprolol Succinate (Toprol Xl -) 12.5 mg PO DAILY [facility] Last Admin: 03/04/17 10:00 Dose: 12.5 mg Ondansetron HCl (Zofran Injection) 4 mg IVPB Q8H PRN PRN Reason: NAUSEA Oxycodone HCl (Roxicodone -) 10 mg PO Q3H PRN PRN Reason: PAIN Last Admin: 03/05/17 06:35 Dose: 10 mg Polyethylene Glycol (Miralax (For Daily Use) -) 17 gm PO DAILY [facility] Last Admin: 03/04/17 09:56 Dose: Not Given Ranitidine HCl (Zantac -) 150 mg PO BID [facility] Last Admin: 03/04/17 21:24 Dose: 150 mg Vitamin E (Vitamin E -) 400 unit PO DAILY [facility] Last Admin: 03/04/17 09:57 Dose: 400 unit Exam: General: awake, alert and cooperative HEENT: PERRL, no JVD CV: s1, s2 Pulm: diminished in bases Abd: obese Ext: WWP, L wrist improved swelling erythema Neuro: grossly intact Laboratory Results - last 24 hr 03/04/17 03/04/17 03/05/17 12:20 17:07 06:12 WBC RBC Hgb Hct MCV MCH MCHC RDW Plt Count MPV Neutrophils % Neutrophils % (Manual) Band Neuts % (Manual) Lymphocytes % Lymphocytes % (Manual) Monocytes % (Manual) Eosinophils % (Manual) Basophils % (Manual) Platelet Estimate INR Sodium Potassium Chloride Carbon Dioxide Anion Gap BUN Creatinine POC Glucometer 172 134 138 Random Glucose Calcium Phosphorus Magnesium C-Reactive Protein Blood Type Antibody Screen 03/05/17 03/05/17 03/05/17 07:00 07:00 07:00 WBC 14.2 H RBC 2.99 L Hgb 9.2 L Hct 27.1 L MCV 90.6 MCH 31.0 MCHC 34.1 RDW 15.4 Plt Count 210 MPV 7.1 L Neutrophils % Y Neutrophils % (Manual) 67 Band Neuts % (Manual) 3 Lymphocytes % Y Lymphocytes % (Manual) 22 Monocytes % (Manual) 2 L D Eosinophils % (Manual) 6 H D Basophils % (Manual) 0 Platelet Estimate Adequate INR Sodium 128 L Potassium 4.1 Chloride 90 L Carbon Dioxide 27 Anion Gap 11 BUN 66 H D Creatinine 7.4 H D POC Glucometer Random Glucose 150 H Calcium 7.3 L Phosphorus 8.4 H D Magnesium 2.4 C-Reactive Protein 9.9 H D Blood Type Antibody Screen 03/05/17 03/05/17 08:55 08:55 WBC RBC Hgb Hct MCV MCH MCHC RDW Plt Count MPV Neutrophils % Neutrophils % (Manual) Band Neuts % (Manual) Lymphocytes % Lymphocytes % (Manual) Monocytes % (Manual) Eosinophils % (Manual) Basophils % (Manual) Platelet Estimate INR 1.27 H Sodium Potassium Chloride Carbon Dioxide Anion Gap BUN Creatinine POC Glucometer Random Glucose Calcium Phosphorus Magnesium C-Reactive Protein Blood Type O NEGATIVE Antibody Screen Negative Problem List - Problems (1) Cellulitis Code(s): L03.90 - CELLULITIS, UNSPECIFIED Qualifiers: Site of cellulitis: extremity Site of cellulitis of extremity: upper extremity Laterality: left Qualified Code(s): L03.114 - Cellulitis of left upper limb (2) Acute renal failure (ARF) Code(s): N17.9 - ACUTE KIDNEY FAILURE, UNSPECIFIED (3) CAD (coronary artery disease) Code(s): I25.10 - ATHSCL HEART DISEASE OF [place] CORONARY ARTERY W/O ANG PCTRS (4) Gout Code(s): M10.9 - GOUT, UNSPECIFIED (5) Hypertension Code(s): I10 - ESSENTIAL (PRIMARY) HYPERTENSION (6) Hyponatremia Code(s): E87.1 - HYPO-OSMOLALITY AND HYPONATREMIA IMP: CAD S/P CABG x2 Gout on allopurinol/colchicine HTN HLD DM II Fatty liver BPH MSSA bacteremia ABX per ID O2 as needed HD per Renal Strict I & O Daily weight Glycemic control Local wound care VTE prophylaxis Dr Sandoval
[2017-03-05] MEDS: POLYETHYLENE GLYCOL 3350 119 GM BTL PO SCH (13:00)
[2017-03-05] MEDS: CHOLECALCIFEROL (VITAMIN D3) 1,000 UNIT TABLET (FP) PO SCH (13:06)
[2017-03-05] MEDS: ALLOPURINOL 100 MG TABLET (FP) PO SCH (13:06)
[2017-03-05] MEDS: HEPARIN NA (PORCINE) 5,000 UNITS/ML 1ML VIAL SQ SCH ×2 (13:06→21:44)
[2017-03-05] MEDS: METOPROLOL SUCCINATE 25 MG TAB.SR.24H (FP) PO SCH (13:07)
[2017-03-05] MEDS: RANITIDINE HCL 150 MG TABLET (FP) PO SCH ×2 (13:07→21:45)
[2017-03-05] MEDS: VITAMIN E 400 INTERNATIONAL-UNITS CAPSULE (FP) PO SCH (13:07)
[2017-03-05] MEDS: EZETIMIBE 10 MG TABLET (FP) PO SCH (13:09)
--- NOTE | 2017-03-05 15:43 | PN ---
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 looks slightly better still with swelling and pain - Current Medication List Current Medications: Active Medications Acetaminophen (Tylenol -) 650 mg PO Q4H PRN PRN Reason: PAIN Allopurinol (Zyloprim -) 100 mg PO DAILY [facility] Last Admin: 03/05/17 13:06 Dose: 100 mg Atorvastatin Calcium (Lipitor -) 40 mg PO HS [facility] Last Admin: 03/04/17 21:24 Dose: 40 mg Cholecalciferol (Vitamin D3 -) 2,000 unit PO DAILY [facility] Last Admin: 03/05/17 13:06 Dose: 2,000 unit Ezetimibe (Zetia -) 10 mg PO DAILY [facility] Last Admin: 03/05/17 13:09 Dose: 10 mg Heparin Sodium (Porcine) (Heparin -) 5,000 unit SQ BID [facility] Last Admin: 03/05/17 13:06 Dose: 5,000 unit IV Flush (Triple Lumen Flush) 4 ml IVPUSH BID [facility] Last Admin: 03/05/17 07:00 Dose: 4 ml Nafcillin Sodium 2 gm/ (Dextrose) 100 mls @ 100 mls/hr IVPB Q4H-IV [facility] Last Admin: 03/05/17 14:59 Dose: 100 mls/hr Insulin Aspart (Novolog Vial Sliding Scale -) 1 vial SQ TIDAC [facility] PRN Reason: Protocol Last Admin: 03/05/17 14:21 Dose: 2 units Meclizine HCl (Antivert -) 25 mg PO TID PRN PRN Reason: DIZZINESS Metoprolol Succinate (Toprol Xl -) 12.5 mg PO DAILY [facility] Last Admin: 03/05/17 13:07 Dose: 12.5 mg Ondansetron HCl (Zofran Injection) 4 mg IVPB Q8H PRN PRN Reason: NAUSEA Oxycodone HCl (Roxicodone -) 10 mg PO Q3H PRN PRN Reason: PAIN Last Admin: 03/05/17 13:19 Dose: 10 mg Polyethylene Glycol (Miralax (For Daily Use) -) 17 gm PO DAILY [facility] Last Admin: 03/05/17 13:00 Dose: Not Given Ranitidine HCl (Zantac -) 150 mg PO BID [facility] Last Admin: 03/05/17 13:07 Dose: 150 mg Vitamin E (Vitamin E -) 400 unit PO DAILY [facility] Last Admin: 03/05/17 13:07 Dose: 400 unit - Objective Vital Signs: Vital Signs Temperature 98.1 F 03/05/17 14:00 Pulse Rate 95 H 03/05/17 14:00 Respiratory Rate 20 03/05/17 14:00 Blood Pressure 156/67 03/05/17 14:00 O2 Sat by Pulse Oximetry (%) 97 03/05/17 08:30 Constitutional: Yes: Calm, Mild Distress Eyes: Yes: Conjunctiva Clear Cardiovascular: Yes: Regular Rate and Rhythm Respiratory: Yes: Regular, CTA Bilaterally Gastrointestinal: Yes: Normal Bowel Sounds, Soft Musculoskeletal: Yes: Other Extremities: Yes: Other (swelling of the wrist present) Neurological: Yes: Alert Psychiatric: Yes: Alert Labs: CBC, BMP 03/05/17 07:00 03/05/17 07:00 INR, PTT INR 1.27 (0.82-1.09) H 03/05/17 08:55 Assessment/Plan sepsis septic left wrist joint gm positive bacteremia fever tenderness patients diagnosis is staph septic arthritis of the left wrist plan conitnue abx dialysis await for renal function to improve rest continue icu awaiting for repeat blood cx still waiting for renal function to come back
--- NOTE | 2017-03-05 16:01 | PN ---
Progress Note (short form) - Note Progress Note: Renal Follow up for JOE Pt seen and examined during dialysis earlier today no acute complaints HD stable, BP ok, catheter with good flow UF goal is 3.3L remains anuric Vital Signs Temperature 98.1 F 03/05/17 14:00 Pulse Rate 95 H 03/05/17 14:00 Respiratory Rate 20 03/05/17 14:00 Blood Pressure 156/67 03/05/17 14:00 O2 Sat by Pulse Oximetry (%) 97 03/05/17 08:30 Intake & Output 03/02/17 03/03/17 03/04/17 03/05/17 23:59 23:59 23:59 23:59 Intake Total 1850 1820 1800 800 Output Total 18 0 0 Balance 1832 1820 1800 800 Weight 4.042 oz 262 lb 12.656 oz 257 lb 3.2 oz 260 lb 6.4 oz Gen: NAD CVS: RRR Lungs: CTA Abd: soft NT/ND Ext: No LE edema, left wrist and hand swollen, eyrthema improved CBC, BMP 03/05/17 07:00 03/05/17 07:00 Current Medications Acetaminophen (Tylenol -) 650 mg PO Q4H PRN PRN Reason: PAIN Allopurinol (Zyloprim -) 100 mg PO DAILY [facility] Last Admin: 03/05/17 13:06 Dose: 100 mg Atorvastatin Calcium (Lipitor -) 40 mg PO HS [facility] Last Admin: 03/04/17 21:24 Dose: 40 mg Cholecalciferol (Vitamin D3 -) 2,000 unit PO DAILY [facility] Last Admin: 03/05/17 13:06 Dose: 2,000 unit Ezetimibe (Zetia -) 10 mg PO DAILY [facility] Last Admin: 03/05/17 13:09 Dose: 10 mg Heparin Sodium (Porcine) (Heparin -) 5,000 unit SQ BID [facility] Last Admin: 03/05/17 13:06 Dose: 5,000 unit IV Flush (Triple Lumen Flush) 4 ml IVPUSH BID [facility] Last Admin: 03/05/17 07:00 Dose: 4 ml Nafcillin Sodium 2 gm/ (Dextrose) 100 mls @ 100 mls/hr IVPB Q4H-IV [facility] Last Admin: 03/05/17 14:59 Dose: 100 mls/hr Insulin Aspart (Novolog Vial Sliding Scale -) 1 vial SQ TIDAC [facility] PRN Reason: Protocol Last Admin: 03/05/17 14:21 Dose: 2 units Meclizine HCl (Antivert -) 25 mg PO TID PRN PRN Reason: DIZZINESS Metoprolol Succinate (Toprol Xl -) 12.5 mg PO DAILY [facility] Last Admin: 03/05/17 13:07 Dose: 12.5 mg Ondansetron HCl (Zofran Injection) 4 mg IVPB Q8H PRN PRN Reason: NAUSEA Oxycodone HCl (Roxicodone -) 10 mg PO Q3H PRN PRN Reason: PAIN Last Admin: 03/05/17 13:19 Dose: 10 mg Polyethylene Glycol (Miralax (For Daily Use) -) 17 gm PO DAILY [facility] Last Admin: 03/05/17 13:00 Dose: Not Given Ranitidine HCl (Zantac -) 150 mg PO BID [facility] Last Admin: 03/05/17 13:07 Dose: 150 mg Vitamin E (Vitamin E -) 400 unit PO DAILY [facility] Last Admin: 03/05/17 13:07 Dose: 400 unit A/P 71 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 #Anuric Acute Kidney Injury now with hyperkalemia secondary to ATN tolerating dialysis well today no signs of renal recovery repeat renal US today, r/o obstruction that may not have been prominent earlier for tunneled HD catheter placement tomorrow Trend BUN/Cr and urine output Aubrey Acharya DO Problem List - Problems (1) Cellulitis Code(s): L03.90 - CELLULITIS, UNSPECIFIED Qualifiers: Site of cellulitis: extremity Site of cellulitis of extremity: upper extremity Laterality: left Qualified Code(s): L03.114 - Cellulitis of left upper limb (2) Acute renal failure (ARF) Code(s): N17.9 - ACUTE KIDNEY FAILURE, UNSPECIFIED (3) CAD (coronary artery disease) Code(s): I25.10 - ATHSCL HEART DISEASE OF [place] CORONARY ARTERY W/O ANG PCTRS (4) Hypertension Code(s): I10 - ESSENTIAL (PRIMARY) HYPERTENSION (5) Gout Code(s): M10.9 - GOUT, UNSPECIFIED (6) Leukocytosis Code(s): D72.829 - ELEVATED WHITE BLOOD CELL COUNT, UNSPECIFIED (7) Hyponatremia Code(s): E87.1 - HYPO-OSMOLALITY AND HYPONATREMIA
[2017-03-05] MEDS ORDERED: INSULIN (NOVOLOG) ASPART 100 UNITS/ML 10ML VIAL ONE (17:20)
--- NOTE | 2017-03-05 19:17 | PN ---
Progress Note (short form) - Note Progress Note: patient seen and examined this morning. Still anuric. Seems much improved with movement of his fingers of the left hand and less swelling and erythema Repeat CAT scan of the forearm and wrist and arm still shows some edema but no fluid collection Hemodialysis again today. Afebrile Catheter placement Thursday a.m. On exam: Vital Signs Temp 98.1 F 03/05/17 14:00 Pulse 95 H 03/05/17 14:00 Resp 20 03/05/17 14:00 BP 156/67 03/05/17 14:00 Pulse Ox 97 03/05/17 08:30 Intake & Output 03/04/17 03/05/17 03/05/17 23:59 11:59 23:59 Intake Total 1500 550 250 Output Total 0 0 Balance 1500 550 250 Weight 260 lb 6.4 oz Intake: IVPB 450 100 Oral 1050 450 250 Output: Urine 0 0 Void 0 0 Other: Voiding Method Urinal Incontinent Incontinent # Unmeasured Voids Void 0 0 Bowel Movement No Yes Yes: soft # Bowel Movements 0 1 Weight Measurement Method Standing Scale alert, sitting at the bedside. chest decreased breath sounds at the bases. Heart regular. Extremities 1+ edema bilaterally. Moving fingers of left hand more easily. Less erythema and swelling of the hand Still some edema or of the wrist and forearm. Abnormal Lab Results 03/04/17 03/05/17 03/05/17 06:30 07:00 07:00 WBC 14.2 H RBC 2.99 L Hgb 9.2 L Hct 27.1 L MPV 7.1 L Monocytes % (Manual) 2 L D Eosinophils % (Manual) 6 H D INR Sodium 128 L Chloride 90 L BUN 66 H D Creatinine 7.4 H D Random Glucose 150 H Calcium 7.3 L Ionized Calcium 4.0 L Phosphorus 8.4 H D C-Reactive Protein 03/05/17 03/05/17 07:00 08:55 WBC RBC Hgb Hct MPV Monocytes % (Manual) Eosinophils % (Manual) INR 1.27 H Sodium Chloride BUN Creatinine Random Glucose Calcium Ionized Calcium Phosphorus C-Reactive Protein 9.9 H D impression: Acute cellulitis left hand. MSSA sepsis. And anuric renal failure, acute. ASHD status post 2 CABG Diabetes mellitus [id number]. Anemia. Hypocalcemia. Plan: Hemodialysis today. Continue IV antibiotics. PT Continue elevation of left hand. Followup infectious disease renal and orthopedic physicians. Problem List - Problems (1) Cellulitis Code(s): L03.90 - CELLULITIS, UNSPECIFIED Qualifiers: Site of cellulitis: extremity Site of cellulitis of extremity: upper extremity Laterality: left Qualified Code(s): L03.114 - Cellulitis of left upper limb (2) Acute renal failure (ARF) Code(s): N17.9 - ACUTE KIDNEY FAILURE, UNSPECIFIED (3) CAD (coronary artery disease) Code(s): I25.10 - ATHSCL HEART DISEASE OF [place] CORONARY ARTERY W/O ANG PCTRS (4) Gout Code(s): M10.9 - GOUT, UNSPECIFIED (5) Hypertension Code(s): I10 - ESSENTIAL (PRIMARY) HYPERTENSION (6) Hyponatremia Code(s): E87.1 - HYPO-OSMOLALITY AND HYPONATREMIA
[2017-03-05] MEDS: ATORVASTATIN CA 40 MG TABLET (FP) PO SCH (21:44)
[2017-03-06] MEDS: NAFCILLIN - 2 GM in DEXTROSE 5%-WATER 100 ML IVPB SCH ×6 (02:51→22:17)
[2017-03-06] MEDS: oxyCODONE HCL 5 MG TABLET PO PRN ×3 (03:41→12:16)
[2017-03-06] MEDS: INSULIN SLIDING SCALE (NOVOLOG) 1 VIAL SQ SCH ×3 (06:23→18:08)
[2017-03-06 07:19] LABS: MCH 30.2 pg (25.7-33.7); MCHC 33.4 g/dl (32.0-35.9); MEAN CELL VOLUME 90.3 fl (80-96); MEAN PLT VOLUME 7.3 fl (7.5-11.1); PLATELET COUNT 200 K/MM3 (134-434); RDW 15.4 % (11.9-15.9); WHITE BLOOD COUNT 16.3 K/mm3 (4.0-10.0)
[2017-03-06 07:42] LABS: INR 1.24 (0.82-1.09); PROTHROMBIN TIME (PATIENT) 13.7 SEC (9.98-11.88)
[2017-03-06 08:01] LABS: CALCIUM 7.4 mg/dL (8.5-10.1)
[2017-03-06 08:08] LABS: ANION GAP 15 (8-16); CO2 26 mmol/L (21-32); CREATININE 6.1 mg/dL (0.7-1.3); GLUCOSE,RANDOM 139 mg/dL (74-106); MAGNESIUM 2.2 mg/dL (1.8-2.4)
[2017-03-06 08:55] LABS: TOTAL CELLS COUNTED 100
[2017-03-06 08:56] LABS: BASOPHIL (MANUAL) 1 % (0-2.0); METAMYELOCYTE 1 % (0-2)
--- NOTE | 2017-03-06 09:21 | PN ---
Progress Note (short form) - Note Progress Note: Ortho Pt see and examined- improving Selected Entries 03/05/17 21:55 Temperature 98.4 F Pulse Rate 88 Respiratory 18 Rate Blood Pressure 143/65 Laboratory Tests 03/06/17 06:30 WBC 16.3 H Hgb 7.4 L D Hct 22.2 L D Plt Count 200 decr swelling and erythema, decr sensitivity to hand,increased ROM, nvi Repeat CT scan showed non-specific soft tissue edema unchanged from previous CT , with NO definite fluid collections noted. a/p Continue abx strict elevation rom exercises will follow d/w Dr. Beebe
[2017-03-06] MEDS ORDERED: PT OWN MED DRAWER 7, Y5N ONE ×2 (09:27→17:58)
[2017-03-06] MEDS: CHOLECALCIFEROL (VITAMIN D3) 1,000 UNIT TABLET (FP) PO SCH (09:31)
[2017-03-06] MEDS: VITAMIN E 400 INTERNATIONAL-UNITS CAPSULE (FP) PO SCH (09:32)
[2017-03-06] MEDS: ALLOPURINOL 100 MG TABLET (FP) PO SCH (09:32)
[2017-03-06] MEDS: RANITIDINE HCL 150 MG TABLET (FP) PO SCH ×2 (09:32→22:18)
[2017-03-06] MEDS: METOPROLOL SUCCINATE 25 MG TAB.SR.24H (FP) PO SCH (09:32)
[2017-03-06] MEDS: TRIPLE LUMEN FLUSH 4 ML ML IVPUSH SCH (09:33)
[2017-03-06] MEDS: EZETIMIBE 10 MG TABLET (FP) PO SCH (09:34)
[2017-03-06] MEDS: POLYETHYLENE GLYCOL 3350 119 GM BTL PO SCH (10:00)
[2017-03-06] MEDS ORDERED: HEPARIN NA (PORCINE) 5,000 UNITS/ML 1ML VIAL ONE (11:35)
[2017-03-06] MEDS ORDERED: LIDOCAINE HCL 1%, 10 MG/ML (20ML VIAL) ONE (11:35)
[2017-03-06 11:49] LABS: FERRITIN 577.041 ng/ml (16.4-293.9)
[2017-03-06 12:46] LABS: MCH 30.5 pg (25.7-33.7); MCHC 33.6 g/dl (32.0-35.9); MEAN CELL VOLUME 90.9 fl (80-96); PLATELET COUNT 233 K/MM3 (134-434); RDW 15.2 % (11.9-15.9); WHITE BLOOD COUNT 18.1 K/mm3 (4.0-10.0)
--- NOTE | 2017-03-06 14:11 | PN ---
Progress Note (short form) - Note Progress Note: Renal Follow up for JOE Pt seen and examined at the bedside awake and alert hand feels better, has better mobility s/p SAFETY COORDINATOR yesterday awaiting permacath placement Vital Signs Temperature 98.3 F 03/06/17 13:39 Pulse Rate 82 03/06/17 13:39 Respiratory Rate 20 03/06/17 13:39 Blood Pressure 142/62 03/06/17 13:39 O2 Sat by Pulse Oximetry (%) 99 03/06/17 09:47 Intake & Output 03/03/17 03/04/17 03/05/17 03/06/17 23:59 23:59 23:59 23:59 Intake Total 1820 1800 1700 300 Output Total 0 0 0 Balance 1820 1800 1700 300 Weight 262 lb 12.656 oz 257 lb 3.2 oz 260 lb 6.4 oz 263 lb 8 oz Gen: NAD CVS: RRR Lungs: CTA Abd: soft NT/ND Ext: No LE edema, left wrist and hand swollen, eyrthema improved CBC, BMP 03/06/17 12:25 03/06/17 06:30 Current Medications Acetaminophen (Tylenol -) 650 mg PO Q4H PRN PRN Reason: PAIN Allopurinol (Zyloprim -) 100 mg PO DAILY [facility] Last Admin: 03/06/17 09:32 Dose: 100 mg Atorvastatin Calcium (Lipitor -) 40 mg PO HS [facility] Last Admin: 03/05/17 21:44 Dose: 40 mg Cholecalciferol (Vitamin D3 -) 2,000 unit PO DAILY [facility] Last Admin: 03/06/17 09:31 Dose: 2,000 unit Ezetimibe (Zetia -) 10 mg PO DAILY [facility] Last Admin: 03/06/17 09:34 Dose: 10 mg Heparin Sodium (Porcine) (Heparin -) 5,000 unit SQ BID [facility] Last Admin: 03/05/17 21:44 Dose: 5,000 unit IV Flush (Triple Lumen Flush) 4 ml IVPUSH BID [facility] Last Admin: 03/06/17 09:33 Dose: 4 ml Nafcillin Sodium 2 gm/ (Dextrose) 100 mls @ 100 mls/hr IVPB Q4H-IV [facility] Last Admin: 03/06/17 12:59 Dose: 100 mls/hr Insulin Aspart (Novolog Vial Sliding Scale -) 1 vial SQ TIDAC [facility] PRN Reason: Protocol Last Admin: 03/06/17 11:59 Dose: Not Given Meclizine HCl (Antivert -) 25 mg PO TID PRN PRN Reason: DIZZINESS Last Admin: 03/05/17 21:45 Dose: 25 mg Metoprolol Succinate (Toprol Xl -) 12.5 mg PO DAILY [facility] Last Admin: 03/06/17 09:32 Dose: 12.5 mg Ondansetron HCl (Zofran Injection) 4 mg IVPB Q8H PRN PRN Reason: NAUSEA Polyethylene Glycol (Miralax (For Daily Use) -) 17 gm PO DAILY [facility] Last Admin: 03/05/17 13:00 Dose: Not Given Ranitidine HCl (Zantac -) 150 mg PO BID [facility] Last Admin: 03/06/17 09:32 Dose: 150 mg Vitamin E (Vitamin E -) 400 unit PO DAILY [facility] Last Admin: 03/06/17 09:32 Dose: 400 unit A/P 71 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 #Anuric Acute Kidney Injury now with hyperkalemia secondary to ATN remains anuric and BUN/Cr remain high indicating a lack of recovery to this point repeat renal US showed no obstruction serologic work up negative for permacath placement today Hd tomororw with UF as tolerated Start Oral Torsemide 40mg Daily Fluid restriction of 1.2 L vanessa Acharya DO Problem List - Problems (1) Cellulitis Code(s): L03.90 - CELLULITIS, UNSPECIFIED Qualifiers: Site of cellulitis: extremity Site of cellulitis of extremity: upper extremity Laterality: left Qualified Code(s): L03.114 - Cellulitis of left upper limb (2) Acute renal failure (ARF) Code(s): N17.9 - ACUTE KIDNEY FAILURE, UNSPECIFIED (3) CAD (coronary artery disease) Code(s): I25.10 - ATHSCL HEART DISEASE OF [place] CORONARY ARTERY W/O ANG PCTRS (4) Hypertension Code(s): I10 - ESSENTIAL (PRIMARY) HYPERTENSION (5) Gout Code(s): M10.9 - GOUT, UNSPECIFIED (6) Leukocytosis Code(s): D72.829 - ELEVATED WHITE BLOOD CELL COUNT, UNSPECIFIED (7) Hyponatremia Code(s): E87.1 - HYPO-OSMOLALITY AND HYPONATREMIA
[2017-03-06] MEDS ORDERED: LIDOCAINE HCL 1%, 10 MG/ML (50 mL VIAL) IJ ONE ×2 (15:44)
--- NOTE | 2017-03-06 16:09 | OP ---
Operative Note - Note: Operative Date: 03/06/17 Pre-Operative Diagnosis: ESRD Operation: Insertion of permacath Post-Operative Diagnosis: Same as Pre-op Surgeon: Jarad Forrester Anesthesia: Fractional Estimated Blood Loss (mls): 50 Operative Report Dictated: Yes
[2017-03-06] MEDS ORDERED: ONDANSETRON 4 MG/2 ML VIAL IVPUSH PRN (16:13)
[2017-03-06] MEDS ORDERED: ONDANSETRON 4 MG/2 ML VIAL IVPB PRN (16:21)
[2017-03-06] MEDS ORDERED: MECLIZINE HCL 25 MG TABLET (FP) PO PRN (16:21)
--- NOTE | 2017-03-06 16:28 | PN ---
Progress Note, Physician History of Present Illness: furnace hand still swollen - Current Medication List Current Medications: Active Medications Acetaminophen (Tylenol -) 650 mg PO Q4H PRN PRN Reason: PAIN Allopurinol (Zyloprim -) 100 mg PO DAILY [facility] Atorvastatin Calcium (Lipitor -) 40 mg PO HS [facility] Cholecalciferol (Vitamin D3 -) 2,000 unit PO DAILY [facility] Ezetimibe (Zetia -) 10 mg PO DAILY [facility] Fentanyl (Sublimaze Injection -) 25 mcg IVPUSH [id number] PRN PRN Reason: PAIN Stop: 03/09/17 16:14 Heparin Sodium (Porcine) (Heparin -) 5,000 unit SQ BID [facility] Heparin Sodium (Porcine) (Heparin -) 1,000 unit IVPUSH ONCE ONE Stop: 03/07/17 06:01 IV Flush (Triple Lumen Flush) 4 ml IVPUSH BID [facility] Nafcillin Sodium 2 gm/ (Dextrose) 100 mls @ 100 mls/hr IVPB Q4H-IV [facility] Insulin Aspart (Novolog Vial Sliding Scale -) 1 vial SQ TIDAC [facility] PRN Reason: Protocol Meclizine HCl (Antivert -) 25 mg PO TID PRN PRN Reason: DIZZINESS Metoprolol Succinate (Toprol Xl -) 12.5 mg PO DAILY [facility] Ondansetron HCl (Zofran Injection) 4 mg IVPUSH Q6H PRN PRN Reason: NAUSEA AND/OR VOMITING Stop: 03/06/17 22:14 Ondansetron HCl (Zofran Injection) 4 mg IVPB Q8H PRN PRN Reason: NAUSEA Polyethylene Glycol (Miralax (For Daily Use) -) 17 gm PO DAILY [facility] Ranitidine HCl (Zantac -) 150 mg PO BID [facility] Vitamin E (Vitamin E -) 400 unit PO DAILY [facility] - Objective Vital Signs: Vital Signs Temperature 98.3 F 03/06/17 13:39 Pulse Rate 82 03/06/17 13:39 Respiratory Rate 20 03/06/17 13:39 Blood Pressure 142/62 03/06/17 13:39 O2 Sat by Pulse Oximetry (%) 99 03/06/17 09:47 Constitutional: Yes: Calm, Mild Distress Cardiovascular: Yes: Regular Rate and Rhythm Respiratory: Yes: Regular, CTA Bilaterally Gastrointestinal: Yes: Normal Bowel Sounds, Soft Musculoskeletal: Yes: Other Extremities: Yes: Other (joint swelling) Neurological: Yes: Alert, Oriented Psychiatric: Yes: Alert, Oriented Labs: CBC, BMP 03/06/17 12:25 03/06/17 06:30 INR, PTT INR 1.24 (0.82-1.09) H 03/06/17 06:30 Assessment/Plan sepsis septic left wrist joint gm positive bacteremia fever tenderness patients diagnosis is staph septic arthritis of the left wrist plan conitnue abx dialysis await for renal function to improve i am very worried about the increasing wbc might have to add another abx we will see how the wbc trends and if any other reason present
--- NOTE | 2017-03-06 19:41 | PN ---
Progress Note (short form) - Note Progress Note: patient seen and examined this morning. For permacath placement today. Still reports moving hand and fingers better with less pain Still some swelling forearm and wrist. Tolerating diet. Had 2 bowel movements yesterday Still anuric. Infectious disease physician concerned for white count rising to 18,000 Repeat blood cultures as of March 04, 2017 normal. On exam: Vital Signs Temp 98.6 F 03/06/17 17:45 Pulse 88 03/06/17 17:45 Resp 20 03/06/17 17:45 BP 140/58 03/06/17 17:45 Pulse Ox 98 03/06/17 17:45 Intake & Output 03/05/17 03/06/17 03/06/17 23:59 11:59 23:59 Intake Total 1150 300 550 Output Total 0 50 Balance 1150 300 500 Weight 263 lb 8 oz Intake: IV 250 IVPB 300 300 300 Oral 850 0 Output: Urine 0 0 Void 0 0 Estimated Blood Loss 50 Other: Voiding Method Incontinent Incontinent # Unmeasured Voids Void 0 0 Bowel Movement Yes: soft No # Bowel Movements 1 0 Weight Measurement Method Standing Scale patient is alert Chest a few rhonchi at the bases. Heart regular. Abdomen soft Extremities 1-2+ pedal edema both legs. Left hand erythema better at fingers still slight swelling beforehand wrist and forearm. Tenderness improved at wrist and forearm. Abnormal Lab Results 03/06/17 03/06/17 03/06/17 06:30 06:30 06:30 WBC 16.3 H RBC 2.46 L Hgb 7.4 L D Hct 22.2 L D MPV 7.3 L PT with INR 13.70 H INR 1.24 H Sodium 131 L Chloride 90 L BUN 59 H Creatinine 6.1 H Random Glucose 139 H Calcium 7.4 L Phosphorus 8.0 H Ferritin 577.041 H 03/06/17 12:25 WBC 18.1 H RBC 2.66 L Hgb 8.1 L Hct 24.2 L MPV 7.0 L PT with INR INR Sodium Chloride BUN Creatinine Random Glucose Calcium Phosphorus Ferritin Impression Acute MSSA sepsis. Acute cellulitis left hand, wrist and forearm. Acute renal failure due to sepsis. Diabetes mellitus. ASHD status post coronary artery bypass x2. Rising WBC count Anemia Plan: Followup infectious disease and renal physicians. Continue dialysis as he continues to be anuric Followup hemoglobin Followup lab Problem List - Problems (1) Cellulitis Code(s): L03.90 - CELLULITIS, UNSPECIFIED Qualifiers: Site of cellulitis: extremity Site of cellulitis of extremity: upper extremity Laterality: left Qualified Code(s): L03.114 - Cellulitis of left upper limb (2) Acute renal failure (ARF) Code(s): N17.9 - ACUTE KIDNEY FAILURE, UNSPECIFIED (3) CAD (coronary artery disease) Code(s): I25.10 - ATHSCL HEART DISEASE OF [place] CORONARY ARTERY W/O ANG PCTRS (4) Gout Code(s): M10.9 - GOUT, UNSPECIFIED (5) Hypertension Code(s): I10 - ESSENTIAL (PRIMARY) HYPERTENSION (6) Hyponatremia Code(s): E87.1 - HYPO-OSMOLALITY AND HYPONATREMIA
[2017-03-06] MEDS ORDERED: oxyCODONE HCL 5 MG TABLET PO ONE (20:15)
[2017-03-06] MEDS ORDERED: TRIPLE LUMEN FLUSH 4 ML ML IVPUSH SCH (22:00)
[2017-03-06] MEDS: HEPARIN NA (PORCINE) 5,000 UNITS/ML 1ML VIAL SQ SCH (22:17)
[2017-03-06] MEDS: ATORVASTATIN CA 40 MG TABLET (FP) PO SCH (22:18)
[2017-03-07] MEDS: oxyCODONE HCL 5 MG TABLET PO PRN ×5 (02:43→21:09)
[2017-03-07] MEDS: NAFCILLIN - 2 GM in DEXTROSE 5%-WATER 100 ML IVPB SCH ×6 (02:43→22:52)
[2017-03-07] MEDS ORDERED: HEPARIN NA (PORCINE) 5,000 UNITS/ML 1ML VIAL IVPUSH ONE ×2 (06:00→06:45)
[2017-03-07] MEDS: INSULIN SLIDING SCALE (NOVOLOG) 1 VIAL SQ SCH ×3 (06:04→17:24)
[2017-03-07 06:06] LABS: SERUM IRON 91 ug/dL (38-169); TOTAL IRON BINDING CAPACITY 193 ug/dL (250-450); UIBC 102 ug/dL (111-343)
[2017-03-07 07:14] LABS: MCH 30.6 pg (25.7-33.7); MCHC 33.9 g/dl (32.0-35.9); MEAN CELL VOLUME 90.4 fl (80-96); MEAN PLT VOLUME 7.4 fl (7.5-11.1); PLATELET COUNT 229 K/MM3 (134-434); RDW 14.8 % (11.9-15.9); WHITE BLOOD COUNT 17.4 K/mm3 (4.0-10.0)
[2017-03-07 07:43] LABS: ANION GAP 12 (8-16); CALCIUM 8.1 mg/dL (8.5-10.1); CO2 25 mmol/L (21-32); GLUCOSE,RANDOM 166 mg/dL (74-106)
[2017-03-07 07:48] LABS: PHOSPHOROUS 8.5 mg/dL (2.5-4.9)
--- NOTE | 2017-03-07 08:59 | PN ---
Progress Note, Physician Chief Complaint: Pt. comfortable, in dialysis, no anesthesia complaints. - Current Medication List Current Medications: Active Medications Acetaminophen (Tylenol -) 650 mg PO Q4H PRN PRN Reason: PAIN Allopurinol (Zyloprim -) 100 mg PO DAILY [facility] Atorvastatin Calcium (Lipitor -) 40 mg PO HS [facility] Last Admin: 03/06/17 22:18 Dose: 40 mg Cholecalciferol (Vitamin D3 -) 2,000 unit PO DAILY [facility] Ezetimibe (Zetia -) 10 mg PO DAILY [facility] Heparin Sodium (Porcine) (Heparin -) 5,000 unit SQ BID [facility] Last Admin: 03/06/17 22:17 Dose: 5,000 unit Nafcillin Sodium 2 gm/ (Dextrose) 100 mls @ 100 mls/hr IVPB Q4H-IV [facility] Last Admin: 03/07/17 06:04 Dose: 100 mls/hr Insulin Aspart (Novolog Vial Sliding Scale -) 1 vial SQ TIDAC [facility] PRN Reason: Protocol Last Admin: 03/07/17 06:04 Dose: 2 units Meclizine HCl (Antivert -) 25 mg PO TID PRN PRN Reason: DIZZINESS Metoprolol Succinate (Toprol Xl -) 12.5 mg PO DAILY [facility] Ondansetron HCl (Zofran Injection) 4 mg IVPB Q8H PRN PRN Reason: NAUSEA Oxycodone HCl (Roxicodone -) 10 mg PO Q3H PRN PRN Reason: PAIN Last Admin: 03/07/17 06:05 Dose: 10 mg Polyethylene Glycol (Miralax (For Daily Use) -) 17 gm PO DAILY [facility] Ranitidine HCl (Zantac -) 150 mg PO BID [facility] Last Admin: 03/06/17 22:18 Dose: 150 mg Vitamin E (Vitamin E -) 400 unit PO DAILY [facility] - Objective Vital Signs: Vital Signs Temperature 98.3 F 03/07/17 06:55 Pulse Rate 94 H 03/07/17 08:30 Respiratory Rate 18 03/07/17 08:30 Blood Pressure 136/99 03/07/17 08:30 O2 Sat by Pulse Oximetry (%) 98 03/06/17 22:00 Constitutional: Yes: Well Nourished, No Distress, Calm Neurological: Yes: WNL, Alert, Oriented Labs: CBC, BMP 03/07/17 07:00 INR, PTT INR 1.24 (0.82-1.09) H 03/06/17 06:30
[2017-03-07 10:28] LABS: CREATININE 7.7 mg/dL (0.7-1.3)
--- NOTE | 2017-03-07 10:34 | PN ---
Progress Note (short form) - Note Progress Note: Renal Follow up for JOE Pt seen and examined during dialysis using permacath for HD blood flow 400, UF goal 3.5L, BP and catheter pressures ok getting 2 units prbc with HD Vital Signs Temperature 98.3 F 03/07/17 06:55 Pulse Rate 60 03/07/17 09:30 Respiratory Rate 18 03/07/17 09:30 Blood Pressure 168/102 03/07/17 09:30 O2 Sat by Pulse Oximetry (%) 98 03/06/17 22:00 Intake & Output 03/04/17 03/05/17 03/06/17 03/07/17 23:59 23:59 23:59 23:59 Intake Total 1800 1700 1150 Output Total 0 0 50 0 Balance 1800 1700 1100 0 Weight 257 lb 3.2 oz 260 lb 6.4 oz 263 lb 8 oz 266 lb 9.6 oz Gen: NAD CVS: RRR Lungs: CTA Abd: soft NT/ND Ext: No LE edema, left wrist and hand swollen, eyrthema improved CBC, BMP 03/07/17 07:00 03/07/17 07:00 Laboratory Tests 03/07/17 07:00 Calcium 8.1 L Phosphorus 8.5 H Current Medications Acetaminophen (Tylenol -) 650 mg PO Q4H PRN PRN Reason: PAIN Allopurinol (Zyloprim -) 100 mg PO DAILY [facility] Atorvastatin Calcium (Lipitor -) 40 mg PO HS [facility] Last Admin: 03/06/17 22:18 Dose: 40 mg Cholecalciferol (Vitamin D3 -) 2,000 unit PO DAILY [facility] Ezetimibe (Zetia -) 10 mg PO DAILY [facility] Heparin Sodium (Porcine) (Heparin -) 5,000 unit SQ BID [facility] Last Admin: 03/06/17 22:17 Dose: 5,000 unit Nafcillin Sodium 2 gm/ (Dextrose) 100 mls @ 100 mls/hr IVPB Q4H-IV [facility] Last Admin: 03/07/17 06:04 Dose: 100 mls/hr Insulin Aspart (Novolog Vial Sliding Scale -) 1 vial SQ TIDAC [facility] PRN Reason: Protocol Last Admin: 03/07/17 06:04 Dose: 2 units Meclizine HCl (Antivert -) 25 mg PO TID PRN PRN Reason: DIZZINESS Metoprolol Succinate (Toprol Xl -) 12.5 mg PO DAILY [facility] Ondansetron HCl (Zofran Injection) 4 mg IVPB Q8H PRN PRN Reason: NAUSEA Oxycodone HCl (Roxicodone -) 10 mg PO Q3H PRN PRN Reason: PAIN Last Admin: 03/07/17 06:05 Dose: 10 mg Polyethylene Glycol (Miralax (For Daily Use) -) 17 gm PO DAILY [facility] Ranitidine HCl (Zantac -) 150 mg PO BID [facility] Last Admin: 03/06/17 22:18 Dose: 150 mg Sevelamer Carbonate (Renvela -) 800 mg PO TIDCM [facility] Vitamin E (Vitamin E -) 400 unit PO DAILY [facility] A/P 71 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 #Anuric Acute Kidney Injury now with hyperkalemia secondary to ATN No signs of recovery yet tolerating dialysis well today Start Torsemide 40mg Daily Trend BUN/Cr avoid IV contrast, [place]/ARB fluid restriction of 1.2 L daily Renal diet start Renvela TID with meals Check Renal vein doppler to r/o thrombosis #Acute Anemia stool occult blood pending transfuse 2 units with Hd check iron studies (added to am labs) usually TARI's not indicated in JOE Trend CBC Aubrey Acharya DO Problem List - Problems (1) Cellulitis Code(s): L03.90 - CELLULITIS, UNSPECIFIED Qualifiers: Site of cellulitis: extremity Site of cellulitis of extremity: upper extremity Laterality: left Qualified Code(s): L03.114 - Cellulitis of left upper limb (2) Acute renal failure (ARF) Code(s): N17.9 - ACUTE KIDNEY FAILURE, UNSPECIFIED (3) CAD (coronary artery disease) Code(s): I25.10 - ATHSCL HEART DISEASE OF [place] CORONARY ARTERY W/O ANG PCTRS (4) Hypertension Code(s): I10 - ESSENTIAL (PRIMARY) HYPERTENSION (5) Gout Code(s): M10.9 - GOUT, UNSPECIFIED (6) Leukocytosis Code(s): D72.829 - ELEVATED WHITE BLOOD CELL COUNT, UNSPECIFIED (7) Hyponatremia Code(s): E87.1 - HYPO-OSMOLALITY AND HYPONATREMIA
--- NOTE | 2017-03-07 11:35 | PN ---
Progress Note (short form) - Note Progress Note: Feels OK. (+) dark stool, received 2 units pRBCs with HD. No CP or SOB. concerned about an area of rash on his left flank. The patient does not have any pain or discomfort or burning. No vesicles. Intake & Output 03/04/17 03/05/17 03/06/17 03/07/17 23:59 23:59 23:59 23:59 Intake Total 1800 1700 1150 Output Total 0 0 50 0 Balance 1800 1700 1100 0 Weight 257 lb 3.2 oz 260 lb 6.4 oz 263 lb 8 oz 266 lb 9.6 oz Last Vital Signs Temp Pulse Resp BP Pulse Ox 97.4 F L 78 18 152/75 98 03/07/17 10:58 03/07/17 10:58 03/07/17 10:58 03/07/17 10:58 03/06/17 22:00 Active Medications Acetaminophen (Tylenol -) 650 mg PO Q4H PRN PRN Reason: PAIN Allopurinol (Zyloprim -) 100 mg PO DAILY [facility] Atorvastatin Calcium (Lipitor -) 40 mg PO HS [facility] Last Admin: 03/06/17 22:18 Dose: 40 mg Cholecalciferol (Vitamin D3 -) 2,000 unit PO DAILY [facility] Ezetimibe (Zetia -) 10 mg PO DAILY [facility] Heparin Sodium (Porcine) (Heparin -) 5,000 unit SQ BID [facility] Last Admin: 03/06/17 22:17 Dose: 5,000 unit Nafcillin Sodium 2 gm/ (Dextrose) 100 mls @ 100 mls/hr IVPB Q4H-IV [facility] Last Admin: 03/07/17 06:04 Dose: 100 mls/hr Insulin Aspart (Novolog Vial Sliding Scale -) 1 vial SQ TIDAC [facility] PRN Reason: Protocol Last Admin: 03/07/17 06:04 Dose: 2 units Meclizine HCl (Antivert -) 25 mg PO TID PRN PRN Reason: DIZZINESS Metoprolol Succinate (Toprol Xl -) 12.5 mg PO DAILY [facility] Ondansetron HCl (Zofran Injection) 4 mg IVPB Q8H PRN PRN Reason: NAUSEA Oxycodone HCl (Roxicodone -) 10 mg PO Q3H PRN PRN Reason: PAIN Last Admin: 03/07/17 06:05 Dose: 10 mg Polyethylene Glycol (Miralax (For Daily Use) -) 17 gm PO DAILY [facility] Ranitidine HCl (Zantac -) 150 mg PO BID [facility] Last Admin: 03/06/17 22:18 Dose: 150 mg Sevelamer Carbonate (Renvela -) 800 mg PO TIDCM [facility] Torsemide (Demadex -) 40 mg PO DAILY [facility] Vitamin E (Vitamin E -) 400 unit PO DAILY [facility] Exam: General: awake, alert, NAD HEENT: PERRL, no JVD CV: s1, s2 Pulm: diminished in bases Abd: obese Ext: WWP, L wrist improved swelling erythema Neuro: grossly intact Laboratory Results - last 24 hr 03/05/17 03/06/17 03/06/17 08:55 06:30 11:49 WBC RBC Hgb Hct MCV MCH MCHC RDW Plt Count MPV Sodium 131 L Potassium 4.0 Chloride 90 L Carbon Dioxide 26 Anion Gap 15 BUN 59 H Creatinine 6.1 H POC Glucometer 155 Random Glucose 139 H Calcium 7.4 L Phosphorus 8.0 H Magnesium 2.2 Iron TIBC Iron Saturation Ferritin 577.041 H Stool Occult Blood Blood Type O NEGATIVE Antibody Screen Negative Crossmatch See Detail 03/06/17 03/06/17 03/06/17 12:25 12:25 17:04 WBC 18.1 H RBC 2.66 L Hgb 8.1 L Hct 24.2 L MCV 90.9 MCH 30.5 MCHC 33.6 RDW 15.2 Plt Count 233 MPV 7.0 L Sodium Potassium Chloride Carbon Dioxide Anion Gap BUN Creatinine POC Glucometer 130 Random Glucose Calcium Phosphorus Magnesium Iron 91 TIBC 193 L Iron Saturation 47 Ferritin Stool Occult Blood Blood Type Antibody Screen Crossmatch 03/07/17 03/07/17 03/07/17 00:00 06:03 07:00 WBC RBC Hgb Hct MCV MCH MCHC RDW Plt Count MPV Sodium 127 L Potassium 3.9 Chloride 90 L Carbon Dioxide 25 Anion Gap 12 BUN 84 H D Creatinine 7.7 H* D POC Glucometer 185 Random Glucose 166 H Calcium 8.1 L Phosphorus 8.5 H Magnesium Iron TIBC Iron Saturation Ferritin Stool Occult Blood Positive Blood Type Antibody Screen Crossmatch 03/07/17 03/07/17 07:00 07:00 WBC 17.4 H RBC 2.14 L Hgb 6.6 L* D Hct 19.4 L D MCV 90.4 MCH 30.6 MCHC 33.9 RDW 14.8 Plt Count 229 MPV 7.4 L Sodium Potassium Chloride Carbon Dioxide Anion Gap BUN Creatinine POC Glucometer Random Glucose Calcium Phosphorus Magnesium Iron TIBC Iron Saturation Ferritin Stool Occult Blood Blood Type O NEGATIVE Antibody Screen Negative Crossmatch See Detail Problem List - Problems (1) Cellulitis Code(s): L03.90 - CELLULITIS, UNSPECIFIED Qualifiers: Site of cellulitis: extremity Site of cellulitis of extremity: upper extremity Laterality: left Qualified Code(s): L03.114 - Cellulitis of left upper limb (2) Acute renal failure (ARF) Code(s): N17.9 - ACUTE KIDNEY FAILURE, UNSPECIFIED (3) CAD (coronary artery disease) Code(s): I25.10 - ATHSCL HEART DISEASE OF [place] CORONARY ARTERY W/O ANG PCTRS (4) Gout Code(s): M10.9 - GOUT, UNSPECIFIED (5) Hypertension Code(s): I10 - ESSENTIAL (PRIMARY) HYPERTENSION (6) Hyponatremia Code(s): E87.1 - HYPO-OSMOLALITY AND HYPONATREMIA IMP: CAD S/P CABG x2 Gout on allopurinol/colchicine HTN HLD DM II Fatty liver BPH MSSA bacteremia ABX per ID Follow H&H Monitor redness along flank -> does not look like zoster at this point O2 as needed HD per Renal Strict I & O Daily weight Glycemic control Local wound care VTE prophylaxis Dr Sandoval
--- NOTE | 2017-03-07 11:56 | PN ---
Progress Note, Physician Chief Complaint: Still with stiffness left hand and legs. History of Present Illness: Patient with MSSA sepsis and acute Cellulitis left hand, wrist and forearm is continuing in IV Nafcillin. Hb falling steadily to 6.6 GM today and 2 units of packed cells were given. He then had HD as he is still anuric and in renal failure. Had a dark but formed BM which is sent to lab; if Guiac + will D/C heparin and switch Zantac to Ranitidine and call GI MD. Good appetite. Slight ecchymosis left flank but not a rash. - Current Medication List Current Medications: Active Medications Acetaminophen (Tylenol -) 650 mg PO Q4H PRN PRN Reason: PAIN Allopurinol (Zyloprim -) 100 mg PO DAILY [facility] Atorvastatin Calcium (Lipitor -) 40 mg PO HS [facility] Last Admin: 03/06/17 22:18 Dose: 40 mg Cholecalciferol (Vitamin D3 -) 2,000 unit PO DAILY [facility] Ezetimibe (Zetia -) 10 mg PO DAILY [facility] Heparin Sodium (Porcine) (Heparin -) 5,000 unit SQ BID [facility] Last Admin: 03/06/17 22:17 Dose: 5,000 unit Nafcillin Sodium 2 gm/ (Dextrose) 100 mls @ 100 mls/hr IVPB Q4H-IV [facility] Last Admin: 03/07/17 06:04 Dose: 100 mls/hr Insulin Aspart (Novolog Vial Sliding Scale -) 1 vial SQ TIDAC [facility] PRN Reason: Protocol Last Admin: 03/07/17 06:04 Dose: 2 units Meclizine HCl (Antivert -) 25 mg PO TID PRN PRN Reason: DIZZINESS Metoprolol Succinate (Toprol Xl -) 12.5 mg PO DAILY [facility] Ondansetron HCl (Zofran Injection) 4 mg IVPB Q8H PRN PRN Reason: NAUSEA Oxycodone HCl (Roxicodone -) 10 mg PO Q3H PRN PRN Reason: PAIN Last Admin: 03/07/17 06:05 Dose: 10 mg Polyethylene Glycol (Miralax (For Daily Use) -) 17 gm PO DAILY [facility] Ranitidine HCl (Zantac -) 150 mg PO BID [facility] Last Admin: 03/06/17 22:18 Dose: 150 mg Sevelamer Carbonate (Renvela -) 800 mg PO TIDCM [facility] Torsemide (Demadex -) 40 mg PO DAILY [facility] Vitamin E (Vitamin E -) 400 unit PO DAILY [facility] - Objective Vital Signs: Vital Signs Temperature 97.4 F L 03/07/17 10:58 Pulse Rate 78 03/07/17 10:58 Respiratory Rate 18 03/07/17 10:58 Blood Pressure 152/75 03/07/17 10:58 O2 Sat by Pulse Oximetry (%) 98 03/06/17 22:00 Constitutional: Yes: Calm Eyes: Yes: Conjunctiva Clear Cardiovascular: Yes: Regular Rate and Rhythm Respiratory: Yes: Diminished, Rhonchi (at bases) Gastrointestinal: Yes: Soft, Distention, Hyperactive Bowel Sounds Genitourinary: No: Taylor Present Extremities: Yes: Erythema, Other (still some eedema left hand and forearm but not warm and less erythema.) Edema: LLE: 2+, RLE: 2+ Neurological: Yes: Alert, Oriented Labs: CBC, BMP 03/07/17 07:00 03/07/17 07:00 INR, PTT INR 1.24 (0.82-1.09) H 03/06/17 06:30 Problem List - Problems (1) Cellulitis Assessment/Plan: Slowly improving but still high WBC and slightly lower to 17,400 today. Code(s): L03.90 - CELLULITIS, UNSPECIFIED Qualifiers: Site of cellulitis: extremity Site of cellulitis of extremity: upper extremity Laterality: left Qualified Code(s): L03.114 - Cellulitis of left upper limb (2) Acute renal failure (ARF) Assessment/Plan: Still anuric and required HD again today. Code(s): N17.9 - ACUTE KIDNEY FAILURE, UNSPECIFIED (3) CAD (coronary artery disease) Assessment/Plan: No chest pain; 2 units P Cells will help to prevent stress on CV system. Code(s): I25.10 - ATHSCL HEART DISEASE OF [place] CORONARY ARTERY W/O ANG PCTRS (4) Gout Assessment/Plan: On Rx. Code(s): M10.9 - GOUT, UNSPECIFIED (5) Hypertension Assessment/Plan: Being monitored; still borderline elevated levels. Code(s): I10 - ESSENTIAL (PRIMARY) HYPERTENSION (6) Anemia Assessment/Plan: ? Hidden GI blood loss; Guiac done today; will follow. Code(s): D64.9 - ANEMIA, UNSPECIFIED
[2017-03-07] MEDS ORDERED: PT OWN MED DRAWER 7, Y5N ONE (12:01)
[2017-03-07] MEDS: HEPARIN NA (PORCINE) 5,000 UNITS/ML 1ML VIAL SQ SCH ×2 (12:08→22:25)
[2017-03-07] MEDS: POLYETHYLENE GLYCOL 3350 119 GM BTL PO SCH (12:11)
[2017-03-07] MEDS: TORSEMIDE 20 MG TABLET (FP) PO SCH (12:28)
--- NOTE | 2017-03-07 12:29 | PN ---
Progress Note, Physician History of Present Illness: Pt states he feels better today. Still has Lt wrist pain but is afebrile. S/P blood transfusion. - Current Medication List Current Medications: Active Medications Acetaminophen (Tylenol -) 650 mg PO Q4H PRN PRN Reason: PAIN Allopurinol (Zyloprim -) 100 mg PO DAILY [facility] Atorvastatin Calcium (Lipitor -) 40 mg PO HS [facility] Last Admin: 03/06/17 22:18 Dose: 40 mg Cholecalciferol (Vitamin D3 -) 2,000 unit PO DAILY [facility] Ezetimibe (Zetia -) 10 mg PO DAILY [facility] Heparin Sodium (Porcine) (Heparin -) 5,000 unit SQ BID [facility] Last Admin: 03/06/17 22:17 Dose: 5,000 unit Nafcillin Sodium 2 gm/ (Dextrose) 100 mls @ 100 mls/hr IVPB Q4H-IV [facility] Last Admin: 03/07/17 06:04 Dose: 100 mls/hr Insulin Aspart (Novolog Vial Sliding Scale -) 1 vial SQ TIDAC [facility] PRN Reason: Protocol Last Admin: 03/07/17 06:04 Dose: 2 units Meclizine HCl (Antivert -) 25 mg PO TID PRN PRN Reason: DIZZINESS Metoprolol Succinate (Toprol Xl -) 12.5 mg PO DAILY [facility] Ondansetron HCl (Zofran Injection) 4 mg IVPB Q8H PRN PRN Reason: NAUSEA Oxycodone HCl (Roxicodone -) 10 mg PO Q3H PRN PRN Reason: PAIN Last Admin: 03/07/17 06:05 Dose: 10 mg Polyethylene Glycol (Miralax (For Daily Use) -) 17 gm PO DAILY [facility] Ranitidine HCl (Zantac -) 150 mg PO BID [facility] Last Admin: 03/06/17 22:18 Dose: 150 mg Sevelamer Carbonate (Renvela -) 800 mg PO TIDCM [facility] Torsemide (Demadex -) 40 mg PO DAILY [facility] Vitamin E (Vitamin E -) 400 unit PO DAILY [facility] - Objective Vital Signs: Vital Signs Temperature 97.4 F L 03/07/17 10:58 Pulse Rate 78 03/07/17 10:58 Respiratory Rate 18 03/07/17 10:58 Blood Pressure 152/75 03/07/17 10:58 O2 Sat by Pulse Oximetry (%) 98 03/06/17 22:00 Constitutional: Yes: Well Nourished, No Distress Eyes: Yes: WNL HENT: Yes: WNL Neck: Yes: WNL Cardiovascular: Yes: Regular Rate and Rhythm Respiratory: Yes: CTA Bilaterally Gastrointestinal: Yes: Normal Bowel Sounds, Soft, Distention Musculoskeletal: Yes: Joint Swelling (Left wrist/hand) Integumentary: Yes: Erythema Neurological: Yes: Alert, Oriented Psychiatric: Yes: Alert, Oriented Labs: CBC, BMP 03/07/17 07:00 03/07/17 07:00 INR, PTT INR 1.24 (0.82-1.09) H 03/06/17 06:30 Problem List - Problems (1) Cellulitis Code(s): L03.90 - CELLULITIS, UNSPECIFIED Qualifiers: Site of cellulitis: extremity Site of cellulitis of extremity: upper extremity Laterality: left Qualified Code(s): L03.114 - Cellulitis of left upper limb (2) Leukocytosis Code(s): D72.829 - ELEVATED WHITE BLOOD CELL COUNT, UNSPECIFIED (3) Septic arthritis Code(s): M00.9 - PYOGENIC ARTHRITIS, UNSPECIFIED Assessment/Plan Lt wrist septic Arthritis MSSA bacteremia Leukocytosis renal failure anemia s/p transfusion r/o GI bleed - continue antibiotics - monitor wbc trend wbc slightly lower today Lt wrist with decreased erythema but still with swelling/pain latest blood cultures with no growth
[2017-03-07] MEDS: SEVELAMER CARBONATE 800 MG TAB (FP) PO SCH ×2 (12:30→17:20)
[2017-03-07] MEDS: CHOLECALCIFEROL (VITAMIN D3) 1,000 UNIT TABLET (FP) PO SCH (12:32)
[2017-03-07] MEDS: METOPROLOL SUCCINATE 25 MG TAB.SR.24H (FP) PO SCH (12:32)
[2017-03-07] MEDS: VITAMIN E 400 INTERNATIONAL-UNITS CAPSULE (FP) PO SCH (12:33)
[2017-03-07] MEDS: RANITIDINE HCL 150 MG TABLET (FP) PO SCH (12:34)
[2017-03-07] MEDS: EZETIMIBE 10 MG TABLET (FP) PO SCH (12:34)
[2017-03-07] MEDS: ALLOPURINOL 100 MG TABLET (FP) PO SCH (12:36)
[2017-03-07] MEDS: ACETAMINOPHEN 325 MG TABLET (FP) PO PRN ×2 (15:05→21:10)
--- NOTE | 2017-03-07 15:37 | PN ---
Progress Note (short form) - Note Progress Note: GI CONSULTATION: PT KNOWN TO DR ANNA HAD COLONOSCOPY 1 YEAR AGO WITH 3 POLYPS REMOVED PER HIS REPORT 71M MULTIPLE MEDICALPROBLEMS WITH HTN/HLD/NIDDM/GOUT/ASCAD/S/P CABG X 2 AND ANGIOPLASTY ON ASA DAILY ADMIT WITH CELLULITIS/ ARF/ON HD NOTED DROP IN HGB 10 TO 6.6 WITH G+/TARRY STOOL HEMODYNE STABLE AGRE WTIH D/C A/C F/U H/H PRBC'S AT HD PPI IV DX EGD ON 03/09 OR 03/10 IF MEDICALLY STABLE FOR SUCH OR SOONER NEEDED FOR NOW HE APPEARS HEMODYNE STABLE AND DENIES SYMPTOMS OF ANEMIA THANK YOU, MD RYAN
[2017-03-07] MEDS: PANTOPRAZOLE SODIUM 40 MG in SODIUM CHLORIDE 100 ML IVPB SCH (17:57)
--- NOTE | 2017-03-07 19:23 | OP ---
DATE OF OPERATION: 03/06/2017 PREOPERATIVE DIAGNOSIS: End-stage renal disease. POSTOPERATIVE DIAGNOSIS: End-stage renal disease. PROCEDURE: Insertion of PermCath. SURGEON: Jarad Pham DO ANESTHESIA: Fractional. BLOOD LOSS: 50 mL INDICATION FOR PROCEDURE: The patient is a 71-year-old male who has end-stage renal disease. He has a right IJ Trialysis catheter in place which needs to be taken out and a PermCath inserted. The patient was consented for the procedure, understanding all risks, benefits, and alternatives and was taken to the operating room. DESCRIPTION OF PROCEDURE: Once in the operating room, he was laid on the operating table in supine manner. The area of the right neck and chest were prepped and draped in a sterile surgical manner, including the catheter. We then placed a 0.035 floppy guidewire into the Trialysis catheter and the catheter was removed. We then changed our gloves. We then injected 10 mL of above and below the clavicle. We then extended our original incision where the Shiley catheter was located and using an 11 blade, we extended that incision. We then used a 15 blade, made an incision below the clavicle. We then tunneled the PermCath up to the puncture site. We then placed our breakaway sheath over the guidewire into the vein under fluoroscopy and the cannula and guidewire were removed. The catheter was placed inside the sheath. The sheath was broken away as the catheter was placed inside the vein. The neck of the catheter was nice and smooth. Tip of the catheter was located outside the right atrium. We then estefany back on each port of the catheter and there was good flow. Heparinized saline was injected, and 2000 units of IV heparin were injected into each port. We then used 4-0 Biosyn, and 2 simple sutures were placed at the puncture site. Next, 3-0 nylon was used and the catheter was attached to the skin. Biopatch, Steri-Strips, 4 x 4's, and Tegaderm were placed. The patient tolerated the procedure with no complications. He was transferred to the PACU in stable condition where a chest x-ray will be obtained. JARAD PHAM DO PERCUSSION INSTRUMENT REPAIRER/[id number]
[2017-03-07] MEDS: ATORVASTATIN CA 40 MG TABLET (FP) PO SCH (21:11)
[2017-03-08] MEDS: oxyCODONE HCL 5 MG TABLET PO PRN ×4 (00:23→21:03)
[2017-03-08] MEDS: NAFCILLIN - 2 GM in DEXTROSE 5%-WATER 100 ML IVPB SCH ×6 (02:35→22:43)
[2017-03-08] MEDS: INSULIN SLIDING SCALE (NOVOLOG) 1 VIAL SQ SCH ×3 (06:34→17:04)
[2017-03-08 07:50] LABS: BASOPHIL 0.2 % (0-2.0); EOSINOPHIL 2.5 % (0-4.5); MCH 30.6 pg (25.7-33.7); MCHC 34.2 g/dl (32.0-35.9); MEAN CELL VOLUME 89.5 fl (80-96); MEAN PLT VOLUME 7.5 fl (7.5-11.1); NEUTROPHILS 83.5 % (42.8-82.8); PLATELET COUNT 249 K/MM3 (134-434); RDW 14.6 % (11.9-15.9)
[2017-03-08] MEDS: SEVELAMER CARBONATE 800 MG TAB (FP) PO SCH ×3 (08:23→17:04)
[2017-03-08 08:25] LABS: ANION GAP 10 (8-16); CALCIUM 8.3 mg/dL (8.5-10.1); CO2 29 mmol/L (21-32); GLUCOSE,RANDOM 176 mg/dL (74-106); MAGNESIUM 2.4 mg/dL (1.8-2.4)
--- NOTE | 2017-03-08 08:27 | PN ---
Progress Note (short form) - Note Progress Note: Renal Follow up for JOE Pt seen and examined at the bedside awake and alert no acute complaints arm feels better less fatigue and sob today after prbc transfusion no N/V/D still no urine output Vital Signs Temperature 98.2 F 03/08/17 06:00 Pulse Rate 92 H 03/08/17 06:00 Respiratory Rate 18 03/08/17 06:00 Blood Pressure 148/68 03/08/17 06:00 O2 Sat by Pulse Oximetry (%) 98 03/07/17 21:00 Intake & Output 03/05/17 03/06/17 03/07/17 03/08/17 23:59 23:59 23:59 23:59 Intake Total 1700 1150 820 400 Output Total 0 50 0 Balance 1700 1100 820 400 Weight 260 lb 6.4 oz 263 lb 8 oz 266 lb 9.6 oz 264 lb 9.6 oz Gen: NAD CVS: RRR Lungs: CTA Abd: soft NT/ND Ext: No LE edema, left wrist and hand swollen, eyrthema improved CBC, BMP 03/08/17 07:00 BMP pending Current Medications Acetaminophen (Tylenol -) 650 mg PO Q4H PRN PRN Reason: PAIN Last Admin: 03/07/17 21:10 Dose: 650 mg Allopurinol (Zyloprim -) 100 mg PO DAILY [facility] Last Admin: 03/07/17 12:36 Dose: 100 mg Atorvastatin Calcium (Lipitor -) 40 mg PO HS [facility] Last Admin: 03/07/17 21:11 Dose: 40 mg Cholecalciferol (Vitamin D3 -) 2,000 unit PO DAILY [facility] Last Admin: 03/07/17 12:32 Dose: 2,000 unit Ezetimibe (Zetia -) 10 mg PO DAILY [facility] Last Admin: 03/07/17 12:34 Dose: 10 mg Nafcillin Sodium 2 gm/ (Dextrose) 100 mls @ 100 mls/hr IVPB Q4H-IV [facility] Last Admin: 03/08/17 06:09 Dose: 100 mls/hr Pantoprazole Sodium 40 mg/ (Sodium Chloride) 100 mls @ 200 mls/hr IVPB DAILY [facility] Last Admin: 03/07/17 17:57 Dose: 200 mls/hr Insulin Aspart (Novolog Vial Sliding Scale -) 1 vial SQ TIDAC [facility] PRN Reason: Protocol Last Admin: 03/08/17 06:34 Dose: Not Given Meclizine HCl (Antivert -) 25 mg PO TID PRN PRN Reason: DIZZINESS Metoprolol Succinate (Toprol Xl -) 12.5 mg PO DAILY [facility] Last Admin: 03/07/17 12:32 Dose: 12.5 mg Ondansetron HCl (Zofran Injection) 4 mg IVPB Q8H PRN PRN Reason: NAUSEA Oxycodone HCl (Roxicodone -) 10 mg PO Q3H PRN PRN Reason: PAIN Last Admin: 03/08/17 00:23 Dose: 10 mg Polyethylene Glycol (Miralax (For Daily Use) -) 17 gm PO DAILY [facility] Last Admin: 03/07/17 12:11 Dose: Not Given Sevelamer Carbonate (Renvela -) 800 mg PO TIDCM [facility] Last Admin: 03/07/17 17:20 Dose: 800 mg Torsemide (Demadex -) 40 mg PO DAILY [facility] Last Admin: 03/07/17 12:28 Dose: 40 mg Vitamin E (Vitamin E -) 400 unit PO DAILY [facility] Last Admin: 03/07/17 12:33 Dose: 400 unit A/P 71 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 #Anuric Acute Kidney Injury now with hyperkalemia secondary to ATN todays labs pending no urine output, check bladder scan today start torsemide 40mg Daily no indication for [employer] today Renal Vein doppler was negative for thrombosis Trend BUN/Cr will access labs and volume status tomorrow before planning HD #Acute Anemia stool occult blood positive continue PPI GI consult ordered Trend CBC, pt with incomplete response to 2 units transfused Aubrey Acharya DO Problem List - Problems (1) Cellulitis Code(s): L03.90 - CELLULITIS, UNSPECIFIED Qualifiers: Site of cellulitis: extremity Site of cellulitis of extremity: upper extremity Laterality: left Qualified Code(s): L03.114 - Cellulitis of left upper limb (2) Acute renal failure (ARF) Code(s): N17.9 - ACUTE KIDNEY FAILURE, UNSPECIFIED (3) CAD (coronary artery disease) Code(s): I25.10 - ATHSCL HEART DISEASE OF [place] CORONARY ARTERY W/O ANG PCTRS (4) Hypertension Code(s): I10 - ESSENTIAL (PRIMARY) HYPERTENSION (5) Gout Code(s): M10.9 - GOUT, UNSPECIFIED (6) Leukocytosis Code(s): D72.829 - ELEVATED WHITE BLOOD CELL COUNT, UNSPECIFIED (7) Hyponatremia Code(s): E87.1 - HYPO-OSMOLALITY AND HYPONATREMIA
[2017-03-08 08:28] LABS: CREATININE 6.3 mg/dL (0.7-1.3); PHOSPHOROUS 7.3 mg/dL (2.5-4.9)
[2017-03-08] MEDS: EZETIMIBE 10 MG TABLET (FP) PO SCH (09:01)
[2017-03-08] MEDS: METOPROLOL SUCCINATE 25 MG TAB.SR.24H (FP) PO SCH (09:02)
[2017-03-08] MEDS: ALLOPURINOL 100 MG TABLET (FP) PO SCH (09:02)
[2017-03-08] MEDS: CHOLECALCIFEROL (VITAMIN D3) 1,000 UNIT TABLET (FP) PO SCH (09:03)
[2017-03-08] MEDS: TORSEMIDE 20 MG TABLET (FP) PO SCH (09:03)
[2017-03-08] MEDS: VITAMIN E 400 INTERNATIONAL-UNITS CAPSULE (FP) PO SCH (09:04)
[2017-03-08] MEDS: POLYETHYLENE GLYCOL 3350 119 GM BTL PO SCH (09:08)
[2017-03-08 10:07] LABS: SERUM IRON 64 ug/dL (38-169); TOTAL IRON BINDING CAPACITY 185 ug/dL (250-450); UIBC 121 ug/dL (111-343)
[2017-03-08] MEDS: PANTOPRAZOLE SODIUM 40 MG in SODIUM CHLORIDE 100 ML IVPB SCH (11:16)
--- NOTE | 2017-03-08 11:43 | PN ---
Progress Note (short form) - Note Progress Note: Feels a little better today. Still with some dark stool. Edema looks less. No CP or SOB. Intake & Output 03/05/17 03/06/17 03/07/17 03/08/17 23:59 23:59 23:59 23:59 Intake Total 1700 1150 820 400 Output Total 0 50 0 Balance 1700 1100 820 400 Weight 260 lb 6.4 oz 263 lb 8 oz 266 lb 9.6 oz 264 lb 9.6 oz Last Vital Signs Temp Pulse Resp BP Pulse Ox 98.3 F 88 18 146/66 98 03/08/17 08:52 03/08/17 08:52 03/08/17 08:52 03/08/17 08:52 03/07/17 21:00 Active Medications Acetaminophen (Tylenol -) 650 mg PO Q4H PRN PRN Reason: PAIN Last Admin: 03/07/17 21:10 Dose: 650 mg Allopurinol (Zyloprim -) 100 mg PO DAILY [facility] Last Admin: 03/08/17 09:02 Dose: 100 mg Atorvastatin Calcium (Lipitor -) 40 mg PO HS [facility] Last Admin: 03/07/17 21:11 Dose: 40 mg Cholecalciferol (Vitamin D3 -) 2,000 unit PO DAILY [facility] Last Admin: 03/08/17 09:03 Dose: 2,000 unit Ezetimibe (Zetia -) 10 mg PO DAILY [facility] Last Admin: 03/08/17 09:01 Dose: 10 mg Nafcillin Sodium 2 gm/ (Dextrose) 100 mls @ 100 mls/hr IVPB Q4H-IV [facility] Last Admin: 03/08/17 09:20 Dose: 100 mls/hr Pantoprazole Sodium 40 mg/ (Sodium Chloride) 100 mls @ 200 mls/hr IVPB DAILY [facility] Last Admin: 03/08/17 11:16 Dose: 200 mls/hr Insulin Aspart (Novolog Vial Sliding Scale -) 1 vial SQ TIDAC [facility] PRN Reason: Protocol Last Admin: 03/08/17 11:16 Dose: 2 units Meclizine HCl (Antivert -) 25 mg PO TID PRN PRN Reason: DIZZINESS Metoprolol Succinate (Toprol Xl -) 12.5 mg PO DAILY [facility] Last Admin: 03/08/17 09:02 Dose: 12.5 mg Ondansetron HCl (Zofran Injection) 4 mg IVPB Q8H PRN PRN Reason: NAUSEA Oxycodone HCl (Roxicodone -) 10 mg PO Q3H PRN PRN Reason: PAIN Last Admin: 03/08/17 09:31 Dose: 10 mg Polyethylene Glycol (Miralax (For Daily Use) -) 17 gm PO DAILY [facility] Last Admin: 03/08/17 09:08 Dose: 17 gm Sevelamer Carbonate (Renvela -) 800 mg PO TIDCM [facility] Last Admin: 03/08/17 08:23 Dose: 800 mg Torsemide (Demadex -) 40 mg PO DAILY [facility] Last Admin: 03/08/17 09:03 Dose: 40 mg Vitamin E (Vitamin E -) 400 unit PO DAILY [facility] Last Admin: 03/08/17 09:04 Dose: 400 unit Exam: General: awake, alert, NAD HEENT: PERRL, no JVD CV: s1, s2 Pulm: diminished in bases Abd: obese Ext: WWP, L wrist improved swelling erythema Neuro: grossly intact Laboratory Results - last 24 hr 03/07/17 03/07/17 03/07/17 07:00 07:00 11:30 WBC RBC Hgb Hct MCV MCH MCHC RDW Plt Count MPV Neutrophils % Lymphocytes % Monocytes % Eosinophils % Basophils % Sodium 127 L Potassium 3.9 Chloride 90 L Carbon Dioxide 25 Anion Gap 12 BUN 84 H D Creatinine 7.7 H* D POC Glucometer Random Glucose 166 H Calcium 8.1 L Phosphorus 8.5 H Magnesium Iron TIBC Iron Saturation Ferritin 605.460 H Cancelled Stool Occult Blood Positive 03/07/17 03/07/17 03/07/17 12:06 13:00 17:22 WBC RBC Hgb Hct MCV MCH MCHC RDW Plt Count MPV Neutrophils % Lymphocytes % Monocytes % Eosinophils % Basophils % Sodium Potassium Chloride Carbon Dioxide Anion Gap BUN Creatinine POC Glucometer 154 212 Random Glucose Calcium Phosphorus Magnesium Iron 64 TIBC 185 L Iron Saturation 35 Ferritin Stool Occult Blood 03/08/17 03/08/17 03/08/17 06:06 07:00 07:00 WBC 19.0 H RBC 2.54 L Hgb 7.8 L D Hct 22.7 L D MCV 89.5 MCH 30.6 MCHC 34.2 RDW 14.6 Plt Count 249 MPV 7.5 Neutrophils % 83.5 H Lymphocytes % 7.2 L D Monocytes % 6.6 Eosinophils % 2.5 Basophils % 0.2 Sodium 132 L Potassium 3.6 Chloride 93 L Carbon Dioxide 29 Anion Gap 10 BUN 68 H Creatinine 6.3 H POC Glucometer 145 Random Glucose 176 H Calcium 8.3 L Phosphorus 7.3 H Magnesium 2.4 Iron TIBC Iron Saturation Ferritin Stool Occult Blood 03/08/17 11:06 WBC RBC Hgb Hct MCV MCH MCHC RDW Plt Count MPV Neutrophils % Lymphocytes % Monocytes % Eosinophils % Basophils % Sodium Potassium Chloride Carbon Dioxide Anion Gap BUN Creatinine POC Glucometer 182 Random Glucose Calcium Phosphorus Magnesium Iron TIBC Iron Saturation Ferritin Stool Occult Blood Problem List - Problems (1) Cellulitis Code(s): L03.90 - CELLULITIS, UNSPECIFIED Qualifiers: Site of cellulitis: extremity Site of cellulitis of extremity: upper extremity Laterality: left Qualified Code(s): L03.114 - Cellulitis of left upper limb (2) Acute renal failure (ARF) Code(s): N17.9 - ACUTE KIDNEY FAILURE, UNSPECIFIED (3) CAD (coronary artery disease) Code(s): I25.10 - ATHSCL HEART DISEASE OF [place] CORONARY ARTERY W/O ANG PCTRS (4) Gout Code(s): M10.9 - GOUT, UNSPECIFIED (5) Hypertension Code(s): I10 - ESSENTIAL (PRIMARY) HYPERTENSION (6) Hyponatremia Code(s): E87.1 - HYPO-OSMOLALITY AND HYPONATREMIA IMP: CAD S/P CABG x2 Gout on allopurinol/colchicine HTN HLD DM II Fatty liver BPH MSSA bacteremia ABX per ID Follow H&H Monitor redness along flank O2 as needed HD per Renal Strict I & O Daily weight Glycemic control Local wound care VTE prophylaxis Dr Sandoval
--- NOTE | 2017-03-08 13:17 | PN ---
Progress Note, Physician Chief Complaint: some pain left hand; worried. History of Present Illness: Patient with MSSA sepsis due to Acute Cellulitis left hand, wrist and forearm developed acute renal failure and yesterday had a dark heme+ stool and fall in Hb under 7GM. He was given 2 units of packed cells and dialysis was repeated. Today HB 7.8 but WBC remained elevated now over 19,000. ?? CT scans or CHEN now indicated. For EDG 03/09 or 03/10. - Current Medication List Current Medications: Active Medications Acetaminophen (Tylenol -) 650 mg PO Q4H PRN PRN Reason: PAIN Last Admin: 03/07/17 21:10 Dose: 650 mg Allopurinol (Zyloprim -) 100 mg PO DAILY [facility] Last Admin: 03/08/17 09:02 Dose: 100 mg Atorvastatin Calcium (Lipitor -) 40 mg PO HS [facility] Last Admin: 03/07/17 21:11 Dose: 40 mg Cholecalciferol (Vitamin D3 -) 2,000 unit PO DAILY [facility] Last Admin: 03/08/17 09:03 Dose: 2,000 unit Ezetimibe (Zetia -) 10 mg PO DAILY [facility] Last Admin: 03/08/17 09:01 Dose: 10 mg Nafcillin Sodium 2 gm/ (Dextrose) 100 mls @ 100 mls/hr IVPB Q4H-IV [facility] Last Admin: 03/08/17 09:20 Dose: 100 mls/hr Pantoprazole Sodium 40 mg/ (Sodium Chloride) 100 mls @ 200 mls/hr IVPB DAILY [facility] Last Admin: 03/08/17 11:16 Dose: 200 mls/hr Insulin Aspart (Novolog Vial Sliding Scale -) 1 vial SQ TIDAC [facility] PRN Reason: Protocol Last Admin: 03/08/17 11:16 Dose: 2 units Meclizine HCl (Antivert -) 25 mg PO TID PRN PRN Reason: DIZZINESS Metoprolol Succinate (Toprol Xl -) 12.5 mg PO DAILY [facility] Last Admin: 03/08/17 09:02 Dose: 12.5 mg Ondansetron HCl (Zofran Injection) 4 mg IVPB Q8H PRN PRN Reason: NAUSEA Oxycodone HCl (Roxicodone -) 10 mg PO Q4H PRN PRN Reason: PAIN Polyethylene Glycol (Miralax (For Daily Use) -) 17 gm PO DAILY [facility] Last Admin: 03/08/17 09:08 Dose: 17 gm Sevelamer Carbonate (Renvela -) 800 mg PO TIDCM [facility] Last Admin: 03/08/17 12:24 Dose: 800 mg Torsemide (Demadex -) 40 mg PO DAILY [facility] Last Admin: 03/08/17 09:03 Dose: 40 mg Vitamin E (Vitamin E -) 400 unit PO DAILY [facility] Last Admin: 03/08/17 09:04 Dose: 400 unit - Objective Vital Signs: Vital Signs Temperature 98.3 F 03/08/17 08:52 Pulse Rate 88 03/08/17 08:52 Respiratory Rate 18 03/08/17 08:52 Blood Pressure 146/66 03/08/17 08:52 O2 Sat by Pulse Oximetry (%) 98 03/07/17 21:00 Constitutional: Yes: Calm, Pallor Cardiovascular: Yes: Regular Rate and Rhythm Respiratory: Yes: Dullness, Rales (at bases.) Gastrointestinal: Yes: Soft, Abdomen, Obese, Distention, Hypoactive Bowel Sounds. No: Tenderness Genitourinary: No: Taylor Present Edema: Yes (total body edema) Edema: LLE: 2+, RLE: 2+ Integumentary: Yes: Other (improved erythema and edema left hand and wrist.) Neurological: Yes: Alert ...Motor Strength: LUE (movement of fingers improved.) Labs: CBC, BMP 03/08/17 07:00 03/08/17 07:00 INR, PTT INR 1.24 (0.82-1.09) H 03/06/17 06:30 Problem List - Problems (1) Cellulitis Assessment/Plan: Improved right hand and wrist. Code(s): L03.90 - CELLULITIS, UNSPECIFIED Qualifiers: Site of cellulitis: extremity Site of cellulitis of extremity: upper extremity Laterality: left Qualified Code(s): L03.114 - Cellulitis of left upper limb (2) GI bleed Assessment/Plan: Stool Guiac + X2. ON PPI; For EGD Code(s): K92.2 - GASTROINTESTINAL HEMORRHAGE, UNSPECIFIED (3) Acute renal failure (ARF) Assessment/Plan: Still anuric. On Dialysis Code(s): N17.9 - ACUTE KIDNEY FAILURE, UNSPECIFIED (4) CAD (coronary artery disease) Assessment/Plan: S/P CABG X2 Code(s): I25.10 - ATHSCL HEART DISEASE OF [place] CORONARY ARTERY W/O ANG PCTRS (5) Gout Assessment/Plan: On Rx. Code(s): M10.9 - GOUT, UNSPECIFIED (6) Hypertension Assessment/Plan: Stable. Code(s): I10 - ESSENTIAL (PRIMARY) HYPERTENSION (7) Anemia Code(s): D64.9 - ANEMIA, UNSPECIFIED (8) Leukocytosis Assessment/Plan: Should be improved with IV Rx. Hand cellulitis improved. ? needs C T chest and abdomen and/or CHEN?? Code(s): D72.829 - ELEVATED WHITE BLOOD CELL COUNT, UNSPECIFIED
--- NOTE | 2017-03-08 14:02 | PN ---
GI Progress Note Subjective: GI F/U NOTE: PT APPEARS MORE COMFORTABLE TODAY NO N/V/F/C/S LESS LEFT HAND PAIN AND SWELLING HAD A BM AND NO BLOOD REPORTED ON PPI MEDICATION HAD HD YESTERDAY - Objective Vital Signs: Vital Signs Temperature 98.3 F 03/08/17 08:52 Pulse Rate 88 03/08/17 08:52 Respiratory Rate 18 03/08/17 08:52 Blood Pressure 146/66 03/08/17 08:52 O2 Sat by Pulse Oximetry (%) 98 03/07/17 21:00 Constitutional: Well Nourished, No Distress, Calm Eyes: Yes: WNL (OBESE, +BS/FIRM/ NON-TENDER TO PALAOTION NO MASSES OR REBOUND) Labs: CBC, BMP 03/08/17 07:00 03/08/17 07:00 INR, PTT INR 1.24 (0.82-1.09) H 03/06/17 06:30 Assessment/Plan SEE FULL CONSULT OF 03/07/17 MULTIPLE MED PROBLEMS 71M CELLULITIS/ OCCULT GI BLEED HAD BEEN ON NSAIDS HGB 10 TO 6.4 GOT 2 U PRBC AT HD WITH RISE TO 7.8 VERY COMFORTABLE TODAY FOR HD TOMORROW AND OUR TEAM TO PLAN DX EGD FOR 03/10 F/U H/H SUSPECT WILL NEED ANOTHER UNIT PRBC AT HD TOMORROW CONTINUE PPI MEDICATION MD RYAN
--- NOTE | 2017-03-08 14:50 | PN ---
Progress Note, Physician History of Present Illness: Pt states he feels well overall. No fever/chills. Still anuric. Had one bowel movement today. - Current Medication List Current Medications: Active Medications Acetaminophen (Tylenol -) 650 mg PO Q4H PRN PRN Reason: PAIN Last Admin: 03/07/17 21:10 Dose: 650 mg Allopurinol (Zyloprim -) 100 mg PO DAILY [facility] Last Admin: 03/08/17 09:02 Dose: 100 mg Atorvastatin Calcium (Lipitor -) 40 mg PO HS [facility] Last Admin: 03/07/17 21:11 Dose: 40 mg Cholecalciferol (Vitamin D3 -) 2,000 unit PO DAILY [facility] Last Admin: 03/08/17 09:03 Dose: 2,000 unit Ezetimibe (Zetia -) 10 mg PO DAILY [facility] Last Admin: 03/08/17 09:01 Dose: 10 mg Nafcillin Sodium 2 gm/ (Dextrose) 100 mls @ 100 mls/hr IVPB Q4H-IV [facility] Last Admin: 03/08/17 13:33 Dose: 100 mls/hr Pantoprazole Sodium 40 mg/ (Sodium Chloride) 100 mls @ 200 mls/hr IVPB DAILY [facility] Last Admin: 03/08/17 11:16 Dose: 200 mls/hr Insulin Aspart (Novolog Vial Sliding Scale -) 1 vial SQ TIDAC [facility] PRN Reason: Protocol Last Admin: 03/08/17 11:16 Dose: 2 units Meclizine HCl (Antivert -) 25 mg PO TID PRN PRN Reason: DIZZINESS Metoprolol Succinate (Toprol Xl -) 12.5 mg PO DAILY [facility] Last Admin: 03/08/17 09:02 Dose: 12.5 mg Ondansetron HCl (Zofran Injection) 4 mg IVPB Q8H PRN PRN Reason: NAUSEA Oxycodone HCl (Roxicodone -) 10 mg PO Q4H PRN PRN Reason: PAIN Polyethylene Glycol (Miralax (For Daily Use) -) 17 gm PO DAILY [facility] Last Admin: 03/08/17 09:08 Dose: 17 gm Sevelamer Carbonate (Renvela -) 800 mg PO TIDCM [facility] Last Admin: 03/08/17 12:24 Dose: 800 mg Torsemide (Demadex -) 40 mg PO DAILY [facility] Last Admin: 03/08/17 09:03 Dose: 40 mg Vitamin E (Vitamin E -) 400 unit PO DAILY [facility] Last Admin: 03/08/17 09:04 Dose: 400 unit - Objective Vital Signs: Vital Signs Temperature 98.3 F 03/08/17 08:52 Pulse Rate 88 03/08/17 08:52 Respiratory Rate 18 03/08/17 08:52 Blood Pressure 146/66 03/08/17 08:52 O2 Sat by Pulse Oximetry (%) 98 03/07/17 21:00 Constitutional: Yes: No Distress, Calm Neck: Yes: Supple Cardiovascular: Yes: Regular Rate and Rhythm Respiratory: Yes: Other (slightly diminished breath sounds in bases) Gastrointestinal: Yes: Normal Bowel Sounds, Soft Genitourinary: Yes: Anuria Musculoskeletal: Yes: Joint Swelling (Lt wrist erythema improved but still with) Neurological: Yes: Alert, Oriented Labs: CBC, BMP 03/08/17 07:00 03/08/17 07:00 INR, PTT INR 1.24 (0.82-1.09) H 03/06/17 06:30 Microbiology 03/04/17 16:45 Blood Culture - Preliminary Blood - Peripheral Venous NO GROWTH OBTAINED AFTER 72 HOURS, INCUBATION TO CONTINUE FOR 2 DAYS. 03/04/17 16:45 Blood Culture - Preliminary Blood - Peripheral Venous NO GROWTH OBTAINED AFTER 72 HOURS, INCUBATION TO CONTINUE FOR 2 DAYS. - ....Imaging Cat Scan: Report Reviewed Problem List - Problems (1) Cellulitis Code(s): L03.90 - CELLULITIS, UNSPECIFIED Qualifiers: Site of cellulitis: extremity Site of cellulitis of extremity: upper extremity Laterality: left Qualified Code(s): L03.114 - Cellulitis of left upper limb (2) Leukocytosis Code(s): D72.829 - ELEVATED WHITE BLOOD CELL COUNT, UNSPECIFIED (3) Septic arthritis Code(s): M00.9 - PYOGENIC ARTHRITIS, UNSPECIFIED (4) MSSA (methicillin susceptible Staphylococcus aureus) infection Code(s): A49.01 - METHICILLIN SUSCEP STAPH INFECTION, UNSP SITE Assessment/Plan MSSA Bacteremia Lt wrist cellulitis/septic arthritis Leukocytosis Renal Failure GI bleed - wbc trending up - recommend cont Nafcillin, add Meropenem empirically for now - repeat blood cultures, suggest repeat CT hand/wrist - monitor wbc - if no improvement consider CHEN
[2017-03-08] MEDS ORDERED: PT OWN MED DRAWER 7, Y5N ONE ×2 (15:52→23:47)
[2017-03-08] MEDS: MEROPENEM 500 MG in DEXTROSE 5%-WATER 100 ML IVPB SCH (16:06)
[2017-03-08] MEDS ORDERED: MEROPENEM 500 MG VIAL (RESTRICTED TO ID) IVPB SCH (22:00)
[2017-03-08] MEDS: ATORVASTATIN CA 40 MG TABLET (FP) PO SCH (22:43)
[2017-03-09] MEDS: MEROPENEM 500 MG in DEXTROSE 5%-WATER 100 ML IVPB SCH ×2 (00:05→09:37)
[2017-03-09] MEDS: NAFCILLIN - 2 GM in DEXTROSE 5%-WATER 100 ML IVPB SCH ×6 (02:56→21:02)
[2017-03-09] MEDS: oxyCODONE HCL 5 MG TABLET PO PRN ×3 (03:07→20:59)
[2017-03-09] MEDS: INSULIN SLIDING SCALE (NOVOLOG) 1 VIAL SQ SCH ×3 (06:35→17:39)
[2017-03-09] MEDS: SEVELAMER CARBONATE 800 MG TAB (FP) PO SCH ×3 (08:00→17:33)
[2017-03-09 08:09] LABS: MCH 30.4 pg (25.7-33.7); MCHC 33.7 g/dl (32.0-35.9); MEAN CELL VOLUME 90.2 fl (80-96); MEAN PLT VOLUME 7.7 fl (7.5-11.1); PLATELET COUNT 306 K/MM3 (134-434); RDW 14.8 % (11.9-15.9); WHITE BLOOD COUNT 21.4 K/mm3 (4.0-10.0)
[2017-03-09 08:22] LABS: ANION GAP 17 (8-16); C-REACTIVE PROTEIN 11.3 MG/DL (0.00-0.3); CALCIUM 8.3 mg/dL (8.5-10.1); CO2 24 mmol/L (21-32); GLUCOSE,RANDOM 162 mg/dL (74-106)
--- NOTE | 2017-03-09 08:53 | PN ---
Progress Note (short form) - Note Progress Note: Ortho Pt see and examined- improving Selected Entries 03/09/17 06:00 Temperature 98.1 F Pulse Rate 87 Respiratory 18 Rate Blood Pressure 148/77 Laboratory Tests 03/09/17 07:40 WBC 21.4 H Hgb 7.6 L Hct 22.6 L Plt Count 306 D decr swelling and erythema, decr sensitivity to hand,increased ROM, nvi a/p ID f/u for incr WBC Abx as per ID strict elevation rom exercises will follow d/w Dr. Beebe
[2017-03-09 09:11] LABS: CREATININE 7.5 mg/dL (0.7-1.3)
[2017-03-09] MEDS ORDERED: PT OWN MED DRAWER 7, Y5N ONE ×2 (09:15→17:21)
[2017-03-09 09:16] LABS: ERYTHROCYTE SEDIMENTATION RATE 92 mm/hr (0-20)
[2017-03-09] MEDS: ALLOPURINOL 100 MG TABLET (FP) PO SCH (09:33)
[2017-03-09] MEDS: EZETIMIBE 10 MG TABLET (FP) PO SCH (09:34)
[2017-03-09] MEDS: TORSEMIDE 20 MG TABLET (FP) PO SCH (09:34)
[2017-03-09] MEDS: CHOLECALCIFEROL (VITAMIN D3) 1,000 UNIT TABLET (FP) PO SCH (09:34)
[2017-03-09] MEDS: METOPROLOL SUCCINATE 25 MG TAB.SR.24H (FP) PO SCH (09:35)
[2017-03-09] MEDS: PANTOPRAZOLE SODIUM 40 MG in SODIUM CHLORIDE 100 ML IVPB SCH ×2 (09:36→17:15)
[2017-03-09] MEDS: VITAMIN E 400 INTERNATIONAL-UNITS CAPSULE (FP) PO SCH (09:36)
[2017-03-09] MEDS: POLYETHYLENE GLYCOL 3350 119 GM BTL PO SCH (09:37)
--- NOTE | 2017-03-09 10:02 | PN ---
Progress Note (short form) - Note Progress Note: Patient seen and examined this AM Problem List - Problems (1) Cellulitis Code(s): L03.90 - CELLULITIS, UNSPECIFIED Qualifiers: Site of cellulitis: extremity Site of cellulitis of extremity: upper extremity Laterality: left Qualified Code(s): L03.114 - Cellulitis of left upper limb (2) GI bleed Code(s): K92.2 - GASTROINTESTINAL HEMORRHAGE, UNSPECIFIED (3) Acute renal failure (ARF) Code(s): N17.9 - ACUTE KIDNEY FAILURE, UNSPECIFIED (4) CAD (coronary artery disease) Code(s): I25.10 - ATHSCL HEART DISEASE OF [place] CORONARY ARTERY W/O ANG PCTRS (5) Gout Code(s): M10.9 - GOUT, UNSPECIFIED (6) Hypertension Code(s): I10 - ESSENTIAL (PRIMARY) HYPERTENSION (7) Anemia Code(s): D64.9 - ANEMIA, UNSPECIFIED (8) Leukocytosis Code(s): D72.829 - ELEVATED WHITE BLOOD CELL COUNT, UNSPECIFIED
[2017-03-09] MEDS ORDERED: INSULIN (NOVOLOG) ASPART 100 UNITS/ML 10ML VIAL ONE ×2 (11:32→17:20)
[2017-03-09 11:37] LABS: LDH 300 U/L (87-241)
--- NOTE | 2017-03-09 15:40 | PN ---
Progress Note, Physician History of Present Illness: patient getting dialysis back hurting him because of the position - Current Medication List Current Medications: Active Medications Acetaminophen (Tylenol -) 650 mg PO Q4H PRN PRN Reason: PAIN Last Admin: 03/07/17 21:10 Dose: 650 mg Allopurinol (Zyloprim -) 100 mg PO DAILY [facility] Last Admin: 03/09/17 09:33 Dose: 100 mg Atorvastatin Calcium (Lipitor -) 40 mg PO HS [facility] Last Admin: 03/08/17 22:43 Dose: 40 mg Cholecalciferol (Vitamin D3 -) 2,000 unit PO DAILY [facility] Last Admin: 03/09/17 09:34 Dose: 2,000 unit Ezetimibe (Zetia -) 10 mg PO DAILY [facility] Last Admin: 03/09/17 09:34 Dose: 10 mg Nafcillin Sodium 2 gm/ (Dextrose) 100 mls @ 100 mls/hr IVPB Q4H-IV [facility] Last Admin: 03/09/17 15:14 Dose: Not Given Pantoprazole Sodium 40 mg/ (Sodium Chloride) 100 mls @ 200 mls/hr IVPB DAILY [facility] Last Admin: 03/09/17 09:36 Dose: 200 mls/hr Insulin Aspart (Novolog Vial Sliding Scale -) 1 vial SQ TIDAC [facility] PRN Reason: Protocol Last Admin: 03/09/17 06:35 Dose: Not Given Meclizine HCl (Antivert -) 25 mg PO TID PRN PRN Reason: DIZZINESS Metoprolol Succinate (Toprol Xl -) 12.5 mg PO DAILY [facility] Last Admin: 03/09/17 09:35 Dose: 12.5 mg Ondansetron HCl (Zofran Injection) 4 mg IVPB Q8H PRN PRN Reason: NAUSEA Oxycodone HCl (Roxicodone -) 10 mg PO Q4H PRN PRN Reason: PAIN Last Admin: 03/09/17 13:06 Dose: 10 mg Polyethylene Glycol (Miralax (For Daily Use) -) 17 gm PO DAILY [facility] Last Admin: 03/09/17 09:37 Dose: Not Given Sevelamer Carbonate (Renvela -) 800 mg PO TIDCM [facility] Last Admin: 03/09/17 12:12 Dose: Not Given Torsemide (Demadex -) 40 mg PO DAILY [facility] Last Admin: 03/09/17 09:34 Dose: 40 mg Vitamin E (Vitamin E -) 400 unit PO DAILY [facility] Last Admin: 03/09/17 09:36 Dose: 400 unit - Objective Vital Signs: Vital Signs Temperature 98.2 F 03/09/17 14:30 Pulse Rate 94 H 03/09/17 15:10 Respiratory Rate 18 03/09/17 15:10 Blood Pressure 140/62 03/09/17 15:10 O2 Sat by Pulse Oximetry (%) 97 03/08/17 22:00 Constitutional: Yes: Calm, Mild Distress Neck: Yes: Supple Cardiovascular: Yes: Regular Rate and Rhythm Respiratory: Yes: Regular, CTA Bilaterally Gastrointestinal: Yes: Soft, Hypoactive Bowel Sounds ...Rectal Exam: Yes: Other (black stools) Musculoskeletal: Yes: Back Pain (positional) Neurological: Yes: Alert, Oriented Psychiatric: Yes: Alert, Oriented Labs: CBC, BMP 03/09/17 07:40 03/09/17 07:40 INR, PTT INR 1.24 (0.82-1.09) H 03/06/17 06:30 Assessment/Plan sepsis septic left wrist joint gm positive bacteremia fever tenderness patients diagnosis is staph septic arthritis of the left wrist i have looked at the events happened over the weekend,i think that his wbc is probably due to the bleed he has had and intravascular depletion patient also passed quite a bit of urine on his own which is a good sign patient going for colonoscopy tomorrow to look for any active bleed ,patient having dark stools now repeat cx is pending plan will stop meropenam continue nafcillin monitor urine output await for cx report and colonoscopy rest as per primary team
--- NOTE | 2017-03-09 16:38 | PN ---
GI Progress Note Subjective: For Dr. Motley Had HD today Last Dark BM was this morning s/p 2 Units PRBC during HD present at bedside - Objective Vital Signs: Vital Signs Temperature 98.2 F 03/09/17 14:30 Pulse Rate 90 03/09/17 16:02 Respiratory Rate 18 03/09/17 16:02 Blood Pressure 152/70 03/09/17 16:02 O2 Sat by Pulse Oximetry (%) 97 03/08/17 22:00 Constitutional: Calm Eyes: No: Sclera Icterus Cardiovascular: Yes: Regular Rate and Rhythm, Tachycardia. No: Murmur ...Auscultate: Yes: Normoactive Bowel Sounds ...Palpate: No: Tenderness Edema: Yes (right hand) Neurological: Yes: Alert, Oriented Labs: CBC, BMP 03/09/17 07:40 03/09/17 07:40 INR, PTT INR 1.24 (0.82-1.09) H 03/06/17 06:30 Problem List - Problems (1) GI bleed Assessment/Plan: Repeat CBC ordered Clear liquids for dinner PPI. If active melena // worsening hemodynamics, transfer to ICU FOr EGD tomorrow if clinical status permits. Discussed potential riosks of the procedure like but not limited bleeding. perforation requiring surgery to repair , infection, sedation medication effects all of which could be potentially life threatening. He has agreed to the procedure. Code(s): K92.2 - GASTROINTESTINAL HEMORRHAGE, UNSPECIFIED
--- NOTE | 2017-03-09 16:43 | PN ---
Progress Note (short form) - Note Progress Note: Renal Follow up for JOE Pt seen and examined at the bedside earlier today awake and alert reports urinating for the first time this AM, was not able to be collected and quantified denies any fever, chills, SOB, CP, Abd pain, N/V/D for EGD tomorrow Vital Signs Temperature 98.2 F 03/09/17 14:30 Pulse Rate 90 03/09/17 16:02 Respiratory Rate 18 03/09/17 16:02 Blood Pressure 152/70 03/09/17 16:02 O2 Sat by Pulse Oximetry (%) 97 03/08/17 22:00 Intake & Output 03/06/17 03/07/17 03/08/17 03/09/17 23:59 23:59 23:59 23:59 Intake Total 3901 795 3402 450 Output Total 50 0 Balance 7084 287 5578 450 Weight 263 lb 8 oz 266 lb 9.6 oz 264 lb 9.6 oz 269 lb 1.6 oz Gen: NAD CVS: RRR Lungs: CTA Abd: soft NT/ND Ext: No LE edema, left wrist and hand swollen, eyrthema improved CBC, BMP 03/09/17 07:40 03/09/17 07:40 Current Medications Acetaminophen (Tylenol -) 650 mg PO Q4H PRN PRN Reason: PAIN Last Admin: 03/07/17 21:10 Dose: 650 mg Allopurinol (Zyloprim -) 100 mg PO DAILY [facility] Last Admin: 03/09/17 09:33 Dose: 100 mg Atorvastatin Calcium (Lipitor -) 40 mg PO HS [facility] Last Admin: 03/08/17 22:43 Dose: 40 mg Cholecalciferol (Vitamin D3 -) 2,000 unit PO DAILY [facility] Last Admin: 03/09/17 09:34 Dose: 2,000 unit Ezetimibe (Zetia -) 10 mg PO DAILY [facility] Last Admin: 03/09/17 09:34 Dose: 10 mg Nafcillin Sodium 2 gm/ (Dextrose) 100 mls @ 100 mls/hr IVPB Q4H-IV [facility] Last Admin: 03/09/17 15:14 Dose: Not Given Pantoprazole Sodium 40 mg/ (Sodium Chloride) 100 mls @ 200 mls/hr IVPB DAILY [facility] Last Admin: 03/09/17 09:36 Dose: 200 mls/hr Insulin Aspart (Novolog Vial Sliding Scale -) 1 vial SQ TIDAC [facility] PRN Reason: Protocol Last Admin: 03/09/17 06:35 Dose: Not Given Meclizine HCl (Antivert -) 25 mg PO TID PRN PRN Reason: DIZZINESS Metoprolol Succinate (Toprol Xl -) 12.5 mg PO DAILY [facility] Last Admin: 03/09/17 09:35 Dose: 12.5 mg Ondansetron HCl (Zofran Injection) 4 mg IVPB Q8H PRN PRN Reason: NAUSEA Oxycodone HCl (Roxicodone -) 10 mg PO Q4H PRN PRN Reason: PAIN Last Admin: 03/09/17 13:06 Dose: 10 mg Polyethylene Glycol (Miralax (For Daily Use) -) 17 gm PO DAILY [facility] Last Admin: 03/09/17 09:37 Dose: Not Given Sevelamer Carbonate (Renvela -) 800 mg PO TIDCM [facility] Last Admin: 03/09/17 12:12 Dose: Not Given Torsemide (Demadex -) 40 mg PO DAILY [facility] Last Admin: 03/09/17 09:34 Dose: 40 mg Vitamin E (Vitamin E -) 400 unit PO DAILY [facility] Last Admin: 03/09/17 09:36 Dose: 400 unit A/P 71 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 #Anuric Acute Kidney Injury now with hyperkalemia secondary to ATN BUN/Cr remains high, and is uptrending between HD Serologic w/u is negative remains anuric (not able to quantify urine output today) HD today with UF as tolerated will continue 3x weekly HD until pt has signs of recovery #Acute Anemia will transfuse 1 unit prbc with HD today for EGD tomorrow check LDH/Haptolobin r/o hemolysis (unlikely) GI follow up Aubrey Acharya DO Problem List - Problems (1) Cellulitis Code(s): L03.90 - CELLULITIS, UNSPECIFIED Qualifiers: Site of cellulitis: extremity Site of cellulitis of extremity: upper extremity Laterality: left Qualified Code(s): L03.114 - Cellulitis of left upper limb (2) Acute renal failure (ARF) Code(s): N17.9 - ACUTE KIDNEY FAILURE, UNSPECIFIED (3) CAD (coronary artery disease) Code(s): I25.10 - ATHSCL HEART DISEASE OF [place] CORONARY ARTERY W/O ANG PCTRS (4) Hypertension Code(s): I10 - ESSENTIAL (PRIMARY) HYPERTENSION (5) Gout Code(s): M10.9 - GOUT, UNSPECIFIED (6) Leukocytosis Code(s): D72.829 - ELEVATED WHITE BLOOD CELL COUNT, UNSPECIFIED (7) Hyponatremia Code(s): E87.1 - HYPO-OSMOLALITY AND HYPONATREMIA
[2017-03-09 18:25] LABS: MCH 30.7 pg (25.7-33.7); MCHC 34.2 g/dl (32.0-35.9); MEAN CELL VOLUME 89.7 fl (80-96); MEAN PLT VOLUME 7.7 fl (7.5-11.1); PLATELET COUNT 372 K/MM3 (134-434); RDW 14.7 % (11.9-15.9); WHITE BLOOD COUNT 20.6 K/mm3 (4.0-10.0)
--- NOTE | 2017-03-09 19:04 | PN ---
Progress Note (short form) - Note Progress Note: Patient was quite pleased with having urinary output over 300 cc today. Creatinine is still quite elevated and hemoglobin low with new melena today so 2 units of packed cells were given and he was again received hemodialysis. Still troubling white count over 20,000. For EGD tomorrow if vital signs stable and he is clinically able. Followup lab ordered. Seen by renal, GI and infectious disease physicians. On exam: Vital Signs Temp 99.6 F 03/09/17 18:13 Pulse 99 H 03/09/17 18:13 Resp 20 03/09/17 18:13 BP 140/72 03/09/17 18:13 Pulse Ox 98 03/09/17 09:00 Intake & Output 03/08/17 03/09/17 03/09/17 23:59 11:59 23:59 Intake Total 1880 450 Output Total 150 Balance 1880 450 -150 Weight 269 lb 1.6 oz Intake: IVPB 600 300 Oral 1280 150 Output: Urine 150 Void 150 Other: Voiding Method Bedside Commode Bedside Commode Bedside Commode # Unmeasured Voids Void 1 Bowel Movement Yes Yes # Bowel Movements 1 1 Weight Measurement Method Standing Scale he is alert, sitting at the bedside. Chest decreased breath sounds with some rhonchi at both bases. Heart regular but tachycardia. Abdomen obese, increased bowel sounds. Extremities 2+ pedal edema both legs. Left upper extremity. Still some edema hand, wrist and forearm but no significant warmth or erythema. Abnormal Lab Results 03/07/17 03/09/17 03/09/17 07:00 07:40 07:40 WBC 21.4 H RBC 2.51 L Hgb 7.6 L Hct 22.6 L Neutrophils % 84.0 H ESR 92 H Sodium 132 L Chloride 91 L Anion Gap 17 H BUN 78 H Creatinine 7.5 H* Random Glucose 162 H Calcium 8.3 L LD Total 300 H C-Reactive Protein 11.3 H D Crossmatch See Detail 03/09/17 17:00 WBC 20.6 H RBC 3.03 L D Hgb 9.3 L D Hct 27.2 L D Neutrophils % ESR Sodium Chloride Anion Gap BUN Creatinine Random Glucose Calcium LD Total C-Reactive Protein Crossmatch iimpression: MSSA sepsis. Acute cellulitis left hand, wrist and forearm. Acute renal failure due to sepsis. GI bleed, possibly stress ulcer. Anemia, blood loss acute needing blood transfusion. ASHD status post coronary artery bypass x2. Plan: EGD in a.m. if clinically stable. Followup lab a.m. Possible followup CAT scans and/or CHEN if white cell count continues to rise Continue IV antibiotic Problem List - Problems (1) Cellulitis Code(s): L03.90 - CELLULITIS, UNSPECIFIED Qualifiers: Site of cellulitis: extremity Site of cellulitis of extremity: upper extremity Laterality: left Qualified Code(s): L03.114 - Cellulitis of left upper limb (2) GI bleed Code(s): K92.2 - GASTROINTESTINAL HEMORRHAGE, UNSPECIFIED (3) Acute renal failure (ARF) Code(s): N17.9 - ACUTE KIDNEY FAILURE, UNSPECIFIED (4) CAD (coronary artery disease) Code(s): I25.10 - ATHSCL HEART DISEASE OF [place] CORONARY ARTERY W/O ANG PCTRS (5) Gout Code(s): M10.9 - GOUT, UNSPECIFIED (6) Hypertension Code(s): I10 - ESSENTIAL (PRIMARY) HYPERTENSION (7) Anemia Code(s): D64.9 - ANEMIA, UNSPECIFIED (8) Leukocytosis Code(s): D72.829 - ELEVATED WHITE BLOOD CELL COUNT, UNSPECIFIED
[2017-03-09] MEDS: ATORVASTATIN CA 40 MG TABLET (FP) PO SCH (21:02)
[2017-03-10] MEDS: NAFCILLIN - 2 GM in DEXTROSE 5%-WATER 100 ML IVPB SCH ×5 (01:21→20:29)
[2017-03-10] MEDS: oxyCODONE HCL 5 MG TABLET PO PRN ×3 (01:24→14:59)
[2017-03-10] MEDS: INSULIN SLIDING SCALE (NOVOLOG) 1 VIAL SQ SCH ×3 (06:41→16:42)
[2017-03-10 07:58] LABS: BASOPHIL 0.3 % (0-2.0); EOSINOPHIL 5.5 % (0-4.5); MCH 30.6 pg (25.7-33.7); MEAN CELL VOLUME 90.1 fl (80-96); MEAN PLT VOLUME 7.5 fl (7.5-11.1); NEUTROPHILS 74.9 % (42.8-82.8); PLATELET COUNT 340 K/MM3 (134-434); RDW 14.8 % (11.9-15.9); WHITE BLOOD COUNT 15.5 K/mm3 (4.0-10.0)
[2017-03-10 08:07] LABS: ANION GAP 14 (8-16); CO2 28 mmol/L (21-32); CREATININE 6.1 mg/dL (0.7-1.3); GLUCOSE,RANDOM 147 mg/dL (74-106)
[2017-03-10] MEDS: SEVELAMER CARBONATE 800 MG TAB (FP) PO SCH ×3 (08:49→16:38)
[2017-03-10] MEDS ORDERED: PT OWN MED DRAWER 7, Y5N ONE ×2 (10:38→16:35)
--- NOTE | 2017-03-10 10:43 | PN ---
Progress Note, Physician Chief Complaint: I am hungry; No urination today (X2 150 cc Thursday) History of Present Illness: Patient with MSSA sepsis and cellulitis left hand, wrist and forearm with acute renal failure and anemia with UGI bleed is scheduled for EGD today. Surprisingly his WBC count fell from 20,000 to 15,500 today which is a favorable sign. No urination today. Hb 8.3 and BUN 61 and Creatinine 5.1. - Current Medication List Current Medications: Active Medications Acetaminophen (Tylenol -) 650 mg PO Q4H PRN PRN Reason: PAIN Last Admin: 03/07/17 21:10 Dose: 650 mg Allopurinol (Zyloprim -) 100 mg PO DAILY [facility] Last Admin: 03/09/17 09:33 Dose: 100 mg Atorvastatin Calcium (Lipitor -) 40 mg PO HS [facility] Last Admin: 03/09/17 21:02 Dose: 40 mg Cholecalciferol (Vitamin D3 -) 2,000 unit PO DAILY [facility] Last Admin: 03/09/17 09:34 Dose: 2,000 unit Ezetimibe (Zetia -) 10 mg PO DAILY [facility] Last Admin: 03/09/17 09:34 Dose: 10 mg Nafcillin Sodium 2 gm/ (Dextrose) 100 mls @ 100 mls/hr IVPB Q4H-IV [facility] Last Admin: 03/10/17 05:40 Dose: 100 mls/hr Pantoprazole Sodium 40 mg/ (Sodium Chloride) 100 mls @ 200 mls/hr IVPB DAILY [facility] Last Admin: 03/09/17 17:15 Dose: Not Given Insulin Aspart (Novolog Vial Sliding Scale -) 1 vial SQ TIDAC [facility] PRN Reason: Protocol Last Admin: 03/10/17 06:41 Dose: Not Given Meclizine HCl (Antivert -) 25 mg PO TID PRN PRN Reason: DIZZINESS Metoprolol Succinate (Toprol Xl -) 12.5 mg PO DAILY [facility] Last Admin: 03/09/17 09:35 Dose: 12.5 mg Ondansetron HCl (Zofran Injection) 4 mg IVPB Q8H PRN PRN Reason: NAUSEA Oxycodone HCl (Roxicodone -) 10 mg PO Q4H PRN PRN Reason: PAIN Last Admin: 03/10/17 08:48 Dose: 10 mg Polyethylene Glycol (Miralax (For Daily Use) -) 17 gm PO DAILY [facility] Last Admin: 03/09/17 09:37 Dose: Not Given Sevelamer Carbonate (Renvela -) 800 mg PO TIDCM [facility] Last Admin: 03/10/17 08:49 Dose: 800 mg Torsemide (Demadex -) 40 mg PO DAILY [facility] Last Admin: 03/09/17 09:34 Dose: 40 mg Vitamin E (Vitamin E -) 400 unit PO DAILY [facility] Last Admin: 03/09/17 09:36 Dose: 400 unit - Objective Vital Signs: Vital Signs Temperature 97.8 F 03/10/17 08:25 Pulse Rate 85 03/10/17 09:15 Respiratory Rate 17 03/10/17 08:25 Blood Pressure 147/79 03/10/17 08:25 O2 Sat by Pulse Oximetry (%) 96 03/10/17 09:15 Constitutional: Yes: Calm Eyes: Yes: Conjunctiva Clear Cardiovascular: Yes: Regular Rate and Rhythm Respiratory: Yes: Diminished, Rales (few at both bases) Gastrointestinal: Yes: Abdomen, Obese, Distention, Hypoactive Bowel Sounds. No : Tenderness Genitourinary: No: Taylor Present Musculoskeletal: Yes: Joint Stiffness, Joint Swelling (left hand) Edema: LLE: 1+, RLE: 1+ Integumentary: Yes: Other (Marked edema of body on lower chest and thighs) Neurological: Yes: Alert, Oriented Labs: CBC, BMP 03/10/17 05:35 03/10/17 05:35 INR, PTT INR 1.24 (0.82-1.09) H 03/06/17 06:30 Problem List - Problems (1) Cellulitis Assessment/Plan: Continues on IV antibiotics. Still some swelling left hand. Moving fingers better. Code(s): L03.90 - CELLULITIS, UNSPECIFIED Qualifiers: Site of cellulitis: extremity Site of cellulitis of extremity: upper extremity Laterality: left Qualified Code(s): L03.114 - Cellulitis of left upper limb (2) GI bleed Assessment/Plan: For EGD today Hb 8.3 had several units p. cells Code(s): K92.2 - GASTROINTESTINAL HEMORRHAGE, UNSPECIFIED (3) Acute renal failure (ARF) Assessment/Plan: Urinated 150cc X2 yesterday but none so far today. Code(s): N17.9 - ACUTE KIDNEY FAILURE, UNSPECIFIED (4) CAD (coronary artery disease) Assessment/Plan: S/P CABG X2. No medical contraindications for EGD. Code(s): I25.10 - ATHSCL HEART DISEASE OF [place] CORONARY ARTERY W/O ANG PCTRS (5) Gout Code(s): M10.9 - GOUT, UNSPECIFIED (6) Hypertension Code(s): I10 - ESSENTIAL (PRIMARY) HYPERTENSION (7) Anemia Code(s): D64.9 - ANEMIA, UNSPECIFIED (8) Leukocytosis Code(s): D72.829 - ELEVATED WHITE BLOOD CELL COUNT, UNSPECIFIED
--- NOTE | 2017-03-10 13:13 | PATH ---
Surgical Pathology Report Patient Name: RACHELE GALAVIZ Med. Rec. #: [id number] /Age/Gender: 1945 (Age: 71) / M Account: [id number] Location: [address] [place] [address]/[facility] Taken: 03/06/2017 Received: 03/09/2017 Reported: 03/10/2017 Physicians: Jarad Forrester Specimen(s) Received OLD SHIBONNY (TRIALYSIS) Clinical History ESRD Final Diagnosis OLD SHILEY, REMOVAL: [employer] (GROSS EXAM). Electronically Signed Benjie Cai M.D. Gross Description Received fresh labeled "old Shiley (trialysis)" is a 28 cm in length triple lumen catheter. No soft tissue is present. No sections are submitted, gross only. /03/09/2017 [facility]03/09/2017
[2017-03-10] MEDS: CHOLECALCIFEROL (VITAMIN D3) 1,000 UNIT TABLET (FP) PO SCH (13:37)
[2017-03-10] MEDS: ALLOPURINOL 100 MG TABLET (FP) PO SCH (13:37)
[2017-03-10] MEDS: METOPROLOL SUCCINATE 25 MG TAB.SR.24H (FP) PO SCH (13:37)
[2017-03-10] MEDS: PANTOPRAZOLE SODIUM 40 MG in SODIUM CHLORIDE 100 ML IVPB SCH (13:38)
[2017-03-10] MEDS: EZETIMIBE 10 MG TABLET (FP) PO SCH (13:38)
[2017-03-10] MEDS: TORSEMIDE 20 MG TABLET (FP) PO SCH (13:38)
[2017-03-10] MEDS: POLYETHYLENE GLYCOL 3350 119 GM BTL PO SCH (13:39)
[2017-03-10] MEDS: VITAMIN E 400 INTERNATIONAL-UNITS CAPSULE (FP) PO SCH (13:51)
--- NOTE | 2017-03-10 14:43 | PN ---
Progress Note, Physician History of Present Illness: continues to improve says that he passed about 270 cc of urine today hand feels better wbc trending down - Current Medication List Current Medications: Active Medications Acetaminophen (Tylenol -) 650 mg PO Q4H PRN PRN Reason: PAIN Last Admin: 03/07/17 21:10 Dose: 650 mg Allopurinol (Zyloprim -) 100 mg PO DAILY [facility] Last Admin: 03/10/17 13:37 Dose: 100 mg Atorvastatin Calcium (Lipitor -) 40 mg PO HS [facility] Last Admin: 03/09/17 21:02 Dose: 40 mg Cholecalciferol (Vitamin D3 -) 2,000 unit PO DAILY [facility] Last Admin: 03/10/17 13:37 Dose: 2,000 unit Ezetimibe (Zetia -) 10 mg PO DAILY [facility] Last Admin: 03/10/17 13:38 Dose: 10 mg Nafcillin Sodium 2 gm/ (Dextrose) 100 mls @ 100 mls/hr IVPB Q4H-IV [facility] Last Admin: 03/10/17 13:39 Dose: 100 mls/hr Pantoprazole Sodium 40 mg/ (Sodium Chloride) 100 mls @ 200 mls/hr IVPB DAILY [facility] Last Admin: 03/10/17 13:38 Dose: 200 mls/hr Insulin Aspart (Novolog Vial Sliding Scale -) 1 vial SQ TIDAC [facility] PRN Reason: Protocol Last Admin: 03/10/17 13:41 Dose: Not Given Meclizine HCl (Antivert -) 25 mg PO TID PRN PRN Reason: DIZZINESS Metoprolol Succinate (Toprol Xl -) 12.5 mg PO DAILY [facility] Last Admin: 03/10/17 13:37 Dose: 12.5 mg Ondansetron HCl (Zofran Injection) 4 mg IVPB Q8H PRN PRN Reason: NAUSEA Oxycodone HCl (Roxicodone -) 10 mg PO Q4H PRN PRN Reason: PAIN Last Admin: 03/10/17 08:48 Dose: 10 mg Polyethylene Glycol (Miralax (For Daily Use) -) 17 gm PO DAILY [facility] Last Admin: 03/10/17 13:39 Dose: Not Given Sevelamer Carbonate (Renvela -) 800 mg PO TIDCM [facility] Last Admin: 03/10/17 13:51 Dose: 800 mg Torsemide (Demadex -) 40 mg PO DAILY [facility] Last Admin: 03/10/17 13:38 Dose: 40 mg Vitamin E (Vitamin E -) 400 unit PO DAILY [facility] Last Admin: 03/10/17 13:51 Dose: 400 unit - Objective Vital Signs: Vital Signs Temperature 98.0 F 03/10/17 12:46 Pulse Rate 87 03/10/17 12:46 Respiratory Rate 21 03/10/17 12:46 Blood Pressure 135/58 03/10/17 12:46 O2 Sat by Pulse Oximetry (%) 97 03/10/17 12:46 Constitutional: Yes: No Distress, Calm Cardiovascular: Yes: Regular Rate and Rhythm Respiratory: Yes: Regular, CTA Bilaterally Gastrointestinal: Yes: Normal Bowel Sounds, Soft Musculoskeletal: Yes: WNL Extremities: Yes: Other Integumentary: Yes: WNL Neurological: Yes: Alert, Oriented Psychiatric: Yes: Alert, Oriented Labs: CBC, BMP 03/10/17 05:35 03/10/17 05:35 INR, PTT INR 1.24 (0.82-1.09) H 03/06/17 06:30 Assessment/Plan sepsis septic left wrist joint gm positive bacteremia fever tenderness overall the patient is improving the hand is still a concern plan conitnue abx renal function improving we will continue the current route rest a per primary
--- NOTE | 2017-03-10 16:29 | PN ---
Progress Note (short form) - Note Progress Note: Renal Follow up for JOE Pt seen and examined at the bedside earlier today s/p EGD this am, found ulcers as per the patient making more urine today no CP, sob, abd pain, N/V/D or fever Vital Signs Temperature 97.9 F 03/10/17 14:10 Pulse Rate 97 H 03/10/17 14:10 Respiratory Rate 24 03/10/17 14:10 Blood Pressure 151/66 03/10/17 14:10 O2 Sat by Pulse Oximetry (%) 97 03/10/17 12:46 Intake & Output 03/07/17 03/08/17 03/09/17 03/10/17 23:59 23:59 23:59 23:59 Intake Total 820 2740 750 510 Output Total 0 150 Balance 820 2740 600 510 Weight 266 lb 9.6 oz 264 lb 9.6 oz 269 lb 1.6 oz 267 lb 7 oz Gen: NAD CVS: RRR Lungs: CTA Abd: soft NT/ND Ext: No LE edema, left wrist and hand swollen, eyrthema improved CBC, BMP 03/10/17 05:35 03/10/17 05:35 Laboratory Tests 03/09/17 03/10/17 07:40 05:35 Calcium 8.3 L 9.0 LD Total 300 H C-Reactive Protein 11.3 H D Current Medications Acetaminophen (Tylenol -) 650 mg PO Q4H PRN PRN Reason: PAIN Last Admin: 03/07/17 21:10 Dose: 650 mg Allopurinol (Zyloprim -) 100 mg PO DAILY [facility] Last Admin: 03/10/17 13:37 Dose: 100 mg Atorvastatin Calcium (Lipitor -) 40 mg PO HS [facility] Last Admin: 03/09/17 21:02 Dose: 40 mg Cholecalciferol (Vitamin D3 -) 2,000 unit PO DAILY [facility] Last Admin: 03/10/17 13:37 Dose: 2,000 unit Ezetimibe (Zetia -) 10 mg PO DAILY [facility] Last Admin: 03/10/17 13:38 Dose: 10 mg Nafcillin Sodium 2 gm/ (Dextrose) 100 mls @ 100 mls/hr IVPB Q4H-IV [facility] Last Admin: 03/10/17 13:39 Dose: 100 mls/hr Pantoprazole Sodium 40 mg/ (Sodium Chloride) 100 mls @ 200 mls/hr IVPB DAILY [facility] Last Admin: 03/10/17 13:38 Dose: 200 mls/hr Insulin Aspart (Novolog Vial Sliding Scale -) 1 vial SQ TIDAC [facility] PRN Reason: Protocol Last Admin: 03/10/17 13:41 Dose: Not Given Meclizine HCl (Antivert -) 25 mg PO TID PRN PRN Reason: DIZZINESS Metoprolol Succinate (Toprol Xl -) 12.5 mg PO DAILY [facility] Last Admin: 03/10/17 13:37 Dose: 12.5 mg Ondansetron HCl (Zofran Injection) 4 mg IVPB Q8H PRN PRN Reason: NAUSEA Oxycodone HCl (Roxicodone -) 10 mg PO Q4H PRN PRN Reason: PAIN Last Admin: 03/10/17 14:59 Dose: 10 mg Polyethylene Glycol (Miralax (For Daily Use) -) 17 gm PO DAILY [facility] Last Admin: 03/10/17 13:39 Dose: Not Given Sevelamer Carbonate (Renvela -) 800 mg PO TIDCM [facility] Last Admin: 03/10/17 13:51 Dose: 800 mg Torsemide (Demadex -) 40 mg PO DAILY [facility] Last Admin: 03/10/17 13:38 Dose: 40 mg Vitamin E (Vitamin E -) 400 unit PO DAILY [facility] Last Admin: 03/10/17 13:51 Dose: 400 unit A/P 71 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 #Anuric Acute Kidney Injury now with hyperkalemia secondary to ATN s/p dialysis yesterday, no acute indication for treatment today pt making some urine now, will need strict I and O continue torsemide daily will check labs in the AM and access for need for additional dialysis #Acute Anemia/GI Bleed s/p PRBC transfusion with HD yesterday s/p endoscopy today continue PPI trend H/H Aubrey Acharya DO Problem List - Problems (1) Cellulitis Code(s): L03.90 - CELLULITIS, UNSPECIFIED Qualifiers: Site of cellulitis: extremity Site of cellulitis of extremity: upper extremity Laterality: left Qualified Code(s): L03.114 - Cellulitis of left upper limb (2) Acute renal failure (ARF) Code(s): N17.9 - ACUTE KIDNEY FAILURE, UNSPECIFIED (3) CAD (coronary artery disease) Code(s): I25.10 - ATHSCL HEART DISEASE OF [place] CORONARY ARTERY W/O ANG PCTRS (4) Hypertension Code(s): I10 - ESSENTIAL (PRIMARY) HYPERTENSION (5) Gout Code(s): M10.9 - GOUT, UNSPECIFIED (6) Leukocytosis Code(s): D72.829 - ELEVATED WHITE BLOOD CELL COUNT, UNSPECIFIED (7) Hyponatremia Code(s): E87.1 - HYPO-OSMOLALITY AND HYPONATREMIA
[2017-03-10] MEDS: ATORVASTATIN CA 40 MG TABLET (FP) PO SCH (21:42)
[2017-03-11] MEDS: NAFCILLIN - 2 GM in DEXTROSE 5%-WATER 100 ML IVPB SCH ×7 (00:18→22:37)
[2017-03-11] MEDS: oxyCODONE HCL 5 MG TABLET PO PRN ×4 (00:18→16:55)
[2017-03-11] MEDS: INSULIN SLIDING SCALE (NOVOLOG) 1 VIAL SQ SCH ×3 (06:15→16:57)
[2017-03-11] MEDS: SEVELAMER CARBONATE 800 MG TAB (FP) PO SCH ×3 (08:15→16:55)
[2017-03-11 08:21] LABS: BASOPHIL 0.4 % (0-2.0); MCH 31.2 pg (25.7-33.7); MCHC 34.2 g/dl (32.0-35.9); MEAN CELL VOLUME 91.1 fl (80-96); MEAN PLT VOLUME 7.4 fl (7.5-11.1); NEUTROPHILS 75.6 % (42.8-82.8); PLATELET COUNT 372 K/MM3 (134-434); RDW 15.1 % (11.9-15.9); WHITE BLOOD COUNT 14.5 K/mm3 (4.0-10.0)
[2017-03-11 08:53] LABS: ANION GAP 13 (8-16); CALCIUM 8.7 mg/dL (8.5-10.1); CO2 26 mmol/L (21-32); CREATININE 7.2 mg/dL (0.7-1.3); GLUCOSE,RANDOM 138 mg/dL (74-106)
--- NOTE | 2017-03-11 09:02 | PN ---
Progress Note (short form) - Note Progress Note: Patient sitting at bedside Slight SOB Appears to have increase in total body edema Urinated 200cc this AM. On Exam: Vital Signs Temp 98.3 F 03/11/17 06:00 Pulse 88 03/11/17 06:00 Resp 18 03/11/17 06:00 BP 134/58 03/11/17 06:00 Pulse Ox 98 03/10/17 22:00 Intake & Output 03/10/17 03/10/17 03/11/17 11:59 23:59 11:59 Intake Total 350 1220 350 Output Total 275 Balance 350 945 350 Weight 267 lb 7 oz 297 lb 6 oz Intake: IV 50 IVPB 300 400 200 Oral 0 820 150 Output: Urine 275 Void 275 Other: Voiding Method Toilet Bedside Commode Bowel Movement Yes # Bowel Movements 1 Weight Measurement Method Standing Scale Standing Scale Alert Chest: decreased breath sounds at bases Cor Reg Left and right hand swollen Ext: 2+ Edema Abnormal Lab Results 03/05/17 03/11/17 03/11/17 08:55 06:50 06:50 WBC 14.5 H RBC 2.59 L Hgb 8.1 L Hct 23.6 L MPV 7.4 L Eosinophils % 6.0 H Sodium 132 L Chloride 93 L BUN 62 H D Creatinine 7.2 H Random Glucose 138 H Crossmatch See Detail IMP: MSSA sepsis acute Acute Cellulitis left hand wrist and forearm Acute renal failure GI Bleed due to gastric Ulcer ASHD S/P CABG Increased SOB R/O Pleural Effusions Plan: Probable dialysis for fluid removal today IV Antibiotics CXR F/U lab Continue PPI Problem List - Problems (1) Cellulitis Code(s): L03.90 - CELLULITIS, UNSPECIFIED Qualifiers: Site of cellulitis: extremity Site of cellulitis of extremity: upper extremity Laterality: left Qualified Code(s): L03.114 - Cellulitis of left upper limb (2) GI bleed Code(s): K92.2 - GASTROINTESTINAL HEMORRHAGE, UNSPECIFIED (3) Acute renal failure (ARF) Code(s): N17.9 - ACUTE KIDNEY FAILURE, UNSPECIFIED (4) CAD (coronary artery disease) Code(s): I25.10 - ATHSCL HEART DISEASE OF [place] CORONARY ARTERY W/O ANG PCTRS (5) Gout Code(s): M10.9 - GOUT, UNSPECIFIED (6) Hypertension Code(s): I10 - ESSENTIAL (PRIMARY) HYPERTENSION (7) Anemia Code(s): D64.9 - ANEMIA, UNSPECIFIED (8) Leukocytosis Code(s): D72.829 - ELEVATED WHITE BLOOD CELL COUNT, UNSPECIFIED
--- NOTE | 2017-03-11 09:42 | PN ---
Progress Note (short form) - Note Progress Note: Pt seen and examined. He states he is feeling better, left arm, wrist, and hand have less pain, better ROM with less pain, less swelling, smaller area of erythema. I agree with all the above. AVSS WBC improved He still has an area of tender, erythematous, indurated tissue on the dorsum of the left hand. He is still most tender over the ulnar aspect of the wrist. Imp He is clearly improving Rec Con't antibiotic regimen as per ID and PMD Elevation of the LUE and warm soaks 3x/day to the back of the left hand would also be helpful No surgery needed, I will follow PRN
[2017-03-11] MEDS: ALLOPURINOL 100 MG TABLET (FP) PO SCH (10:48)
[2017-03-11] MEDS: METOPROLOL SUCCINATE 25 MG TAB.SR.24H (FP) PO SCH (10:48)
[2017-03-11] MEDS: EZETIMIBE 10 MG TABLET (FP) PO SCH (10:49)
[2017-03-11] MEDS: PANTOPRAZOLE SODIUM 40 MG in SODIUM CHLORIDE 100 ML IVPB SCH (10:50)
[2017-03-11] MEDS: VITAMIN E 400 INTERNATIONAL-UNITS CAPSULE (FP) PO SCH (10:50)
[2017-03-11] MEDS: CHOLECALCIFEROL (VITAMIN D3) 1,000 UNIT TABLET (FP) PO SCH (10:50)
[2017-03-11] MEDS: TORSEMIDE 20 MG TABLET (FP) PO SCH (10:51)
[2017-03-11] MEDS: POLYETHYLENE GLYCOL 3350 119 GM BTL PO SCH (10:51)
--- NOTE | 2017-03-11 12:52 | PN ---
Progress Note (short form) - Note Progress Note: PULMONARY ASKED BY NURSE TO EVAL PATIENT DUE TO ACUTE DESATURATION OF O2 WHEN TRANSFERRING FROM SITTING IN CHAIR TO BED SPO2 WENT TO 80%/CYANOTIC AND DIFFICULTY BREATHING WITH WHEEZES NOTED/NO CP/ PALPS OR PRESYNCOPAL SYPTOMS/EPISODE LASTED LESS THAN ONE MINUTE RAPID RESPONSE WAS NOT CALLED PATIENT RECOVERED PROMPTLY WITH INCREASE FIO2 TO 6L/M VSS/AFEBRILE ANICTERIC DIMINISHED BREATH SOUNDS RIGHT BASE S1S2 BS+ SOFT ANKLE TO THIGH 4+ EDEMA LABS/RADIOLOGY/MICRO/MEDS/NOTES REVIEWED LIKELY VASO-VAGAL REACTION CAUSING EPISODE CAD S/P CABG x2 Gout on allopurinol HTN HLD DM II Fatty liver BPH MSSA bacteremia ABX/Needs HD Follow H&H O2 as needed Strict I & O Daily weight Glycemic control Local wound care VTE prophylaxis would transfer to telemetry Aniket RAO MD
--- NOTE | 2017-03-11 13:12 | PN ---
Progress Note (short form) - Note Progress Note: Renal Follow up for JOE Pt seen and examined at the bedside earlier today feels well made some urine today, ~200cc has continued swelling and OLIVARES pt was noted to become cyanotic and hypoxic upon moving to bed from the chair CXR shows effusions Vital Signs Temperature 98.5 F 03/11/17 10:46 Pulse Rate 78 03/11/17 10:47 Respiratory Rate 18 03/11/17 10:46 Blood Pressure 145/65 03/11/17 10:46 O2 Sat by Pulse Oximetry (%) 97 03/11/17 10:47 Intake & Output 03/08/17 03/09/17 03/10/17 03/11/17 23:59 23:59 23:59 23:59 Intake Total 2740 750 1570 565 Output Total 150 275 Balance 2740 600 1295 565 Weight 264 lb 9.6 oz 269 lb 1.6 oz 267 lb 7 oz 297 lb 6 oz Gen: NAD CVS: RRR Lungs: CTA Abd: soft NT/ND Ext: No LE edema, left wrist and hand swollen, eyrthema improved CBC, BMP 03/11/17 06:50 03/11/17 06:50 Current Medications Acetaminophen (Tylenol -) 650 mg PO Q4H PRN PRN Reason: PAIN Last Admin: 03/07/17 21:10 Dose: 650 mg Allopurinol (Zyloprim -) 100 mg PO DAILY [facility] Last Admin: 03/11/17 10:48 Dose: 100 mg Atorvastatin Calcium (Lipitor -) 40 mg PO HS [facility] Last Admin: 03/10/17 21:42 Dose: 40 mg Cholecalciferol (Vitamin D3 -) 2,000 unit PO DAILY [facility] Last Admin: 03/11/17 10:50 Dose: 2,000 unit Ezetimibe (Zetia -) 10 mg PO DAILY [facility] Last Admin: 03/11/17 10:49 Dose: 10 mg Nafcillin Sodium 2 gm/ (Dextrose) 100 mls @ 100 mls/hr IVPB Q4H-IV [facility] Last Admin: 03/11/17 10:47 Dose: 100 mls/hr Pantoprazole Sodium 40 mg/ (Sodium Chloride) 100 mls @ 200 mls/hr IVPB DAILY [facility] Last Admin: 03/11/17 10:50 Dose: 200 mls/hr Insulin Aspart (Novolog Vial Sliding Scale -) 1 vial SQ TIDAC [facility] PRN Reason: Protocol Last Admin: 03/11/17 12:10 Dose: 2 units Meclizine HCl (Antivert -) 25 mg PO TID PRN PRN Reason: DIZZINESS Metoprolol Succinate (Toprol Xl -) 12.5 mg PO DAILY [facility] Last Admin: 03/11/17 10:48 Dose: 12.5 mg Ondansetron HCl (Zofran Injection) 4 mg IVPB Q8H PRN PRN Reason: NAUSEA Oxycodone HCl (Roxicodone -) 10 mg PO Q4H PRN PRN Reason: PAIN Last Admin: 03/11/17 08:35 Dose: 10 mg Polyethylene Glycol (Miralax (For Daily Use) -) 17 gm PO DAILY [facility] Last Admin: 03/11/17 10:51 Dose: Not Given Sevelamer Carbonate (Renvela -) 800 mg PO TIDCM [facility] Last Admin: 03/11/17 12:14 Dose: 800 mg Torsemide (Demadex -) 40 mg PO DAILY [facility] Last Admin: 03/11/17 10:51 Dose: 40 mg Vitamin E (Vitamin E -) 400 unit PO DAILY [facility] Last Admin: 03/11/17 10:50 Dose: Not Given A/P 71 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 #Anuric Acute Kidney Injury now with hyperkalemia secondary to ATN making some urine but remain oliguirc BUN/Cr remain high given volume overload and hypoxia will require RADIOLOGY RN with UF today goal UF ~3.5L as tolerated #Acute Anemia/GI Bleed trend CBC continue PPI Aubrey Acharya DO Problem List - Problems (1) Cellulitis Code(s): L03.90 - CELLULITIS, UNSPECIFIED Qualifiers: Site of cellulitis: extremity Site of cellulitis of extremity: upper extremity Laterality: left Qualified Code(s): L03.114 - Cellulitis of left upper limb (2) Acute renal failure (ARF) Code(s): N17.9 - ACUTE KIDNEY FAILURE, UNSPECIFIED (3) CAD (coronary artery disease) Code(s): I25.10 - ATHSCL HEART DISEASE OF [place] CORONARY ARTERY W/O ANG PCTRS (4) Hypertension Code(s): I10 - ESSENTIAL (PRIMARY) HYPERTENSION (5) Gout Code(s): M10.9 - GOUT, UNSPECIFIED (6) Leukocytosis Code(s): D72.829 - ELEVATED WHITE BLOOD CELL COUNT, UNSPECIFIED (7) Hyponatremia Code(s): E87.1 - HYPO-OSMOLALITY AND HYPONATREMIA
--- NOTE | 2017-03-11 14:28 | PATH ---
Surgical Pathology Report Patient Name: RACHELE GALAVIZ [facility]. Rec. #: [id number] /Age/Gender: 1945 (Age: 71) / M Account: [id number] Location: [address] [place] [address]/[facility] Taken: 03/10/2017 Received: 03/10/2017 Reported: 03/11/2017 Physicians: Alfonso Mayfield M.D. Specimen(s) Received BX ANTRUM Clinical History GI bleeding Gastric ulcer in prepylorus Final Diagnosis STOMACH, ANTRUM, BIOPSY: GASTRIC ANTRAL AND OXYNTIC MUCOSA WITH FOCALLY ACTIVE MODERATE CHRONIC GASTRITIS AND REACTIVE GASTROPATHY. IMMUNOSTAIN FOR H. PYLORI IS NEGATIVE FOR ORGANISMS. Electronically Signed Benjie Cai M.D. Gross Description Received in formalin, labeled "biopsy antrum" are 2 villatoro, irregular portions of soft tissue measuring 0.2 and 0.6 cm in greatest dimension. The specimens are submitted in toto in one cassette. /03/10/2017 saudi03/10/2017
--- NOTE | 2017-03-11 16:01 | PN ---
Progress Note, Physician History of Present Illness: events noted patient sob and hypoxic going to be transferred to [place] now in dialysis stable - Current Medication List Current Medications: Active Medications Acetaminophen (Tylenol -) 650 mg PO Q4H PRN PRN Reason: PAIN Last Admin: 03/07/17 21:10 Dose: 650 mg Allopurinol (Zyloprim -) 100 mg PO DAILY [facility] Last Admin: 03/11/17 10:48 Dose: 100 mg Atorvastatin Calcium (Lipitor -) 40 mg PO HS [facility] Last Admin: 03/10/17 21:42 Dose: 40 mg Cholecalciferol (Vitamin D3 -) 2,000 unit PO DAILY [facility] Last Admin: 03/11/17 10:50 Dose: 2,000 unit Ezetimibe (Zetia -) 10 mg PO DAILY [facility] Last Admin: 03/11/17 10:49 Dose: 10 mg Nafcillin Sodium 2 gm/ (Dextrose) 100 mls @ 100 mls/hr IVPB Q4H-IV [facility] Last Admin: 03/11/17 10:47 Dose: 100 mls/hr Pantoprazole Sodium 40 mg/ (Sodium Chloride) 100 mls @ 200 mls/hr IVPB DAILY [facility] Last Admin: 03/11/17 10:50 Dose: 200 mls/hr Insulin Aspart (Novolog Vial Sliding Scale -) 1 vial SQ TIDAC [facility] PRN Reason: Protocol Last Admin: 03/11/17 12:10 Dose: 2 units Meclizine HCl (Antivert -) 25 mg PO TID PRN PRN Reason: DIZZINESS Metoprolol Succinate (Toprol Xl -) 12.5 mg PO DAILY [facility] Last Admin: 03/11/17 10:48 Dose: 12.5 mg Ondansetron HCl (Zofran Injection) 4 mg IVPB Q8H PRN PRN Reason: NAUSEA Oxycodone HCl (Roxicodone -) 10 mg PO Q4H PRN PRN Reason: PAIN Last Admin: 03/11/17 08:35 Dose: 10 mg Polyethylene Glycol (Miralax (For Daily Use) -) 17 gm PO DAILY [facility] Last Admin: 03/11/17 10:51 Dose: Not Given Sevelamer Carbonate (Renvela -) 800 mg PO TIDCM [facility] Last Admin: 03/11/17 12:14 Dose: 800 mg Torsemide (Demadex -) 40 mg PO DAILY [facility] Last Admin: 03/11/17 10:51 Dose: 40 mg Vitamin E (Vitamin E -) 400 unit PO DAILY [facility] Last Admin: 03/11/17 10:50 Dose: Not Given - Objective Vital Signs: Vital Signs Temperature 98.7 F 03/11/17 14:57 Pulse Rate 84 03/11/17 14:57 Respiratory Rate 24 03/11/17 14:57 Blood Pressure 161/70 03/11/17 14:57 O2 Sat by Pulse Oximetry (%) 97 03/11/17 10:47 Constitutional: Yes: No Distress, Calm Cardiovascular: Yes: Regular Rate and Rhythm Respiratory: Yes: Regular, Other Gastrointestinal: Yes: Normal Bowel Sounds, Soft Musculoskeletal: Yes: WNL Extremities: Yes: Other (left wrist swelling) Neurological: Yes: Alert, Oriented Psychiatric: Yes: Alert, Oriented Labs: CBC, BMP 03/11/17 06:50 03/11/17 06:50 INR, PTT INR 1.24 (0.82-1.09) H 03/06/17 06:30 Assessment/Plan sepsis septic left wrist joint gm positive bacteremia fever tenderness plan conitnue abx close monitoring looked at the xray i have worries about it i have spoken in detail wiht the also spoke with nephrology and we agree that patient needs more fluid to be taken off close watch on the xray and patient and wbc
[2017-03-11] MEDS ORDERED: PT OWN MED DRAWER 7, Y5N ONE ×2 (16:47→22:29)
[2017-03-11] MEDS: ATORVASTATIN CA 40 MG TABLET (FP) PO SCH (22:36)
[2017-03-12] MEDS: ACETAMINOPHEN 325 MG TABLET (FP) PO PRN ×3 (01:11→17:39)
[2017-03-12] MEDS: oxyCODONE HCL 5 MG TABLET PO PRN ×3 (01:12→17:39)
[2017-03-12] MEDS ORDERED: PT OWN MED DRAWER 7, Y5N ONE ×3 (02:57→23:29)
[2017-03-12] MEDS: NAFCILLIN - 2 GM in DEXTROSE 5%-WATER 100 ML IVPB SCH ×8 (03:02→23:31)
[2017-03-12] MEDS: INSULIN SLIDING SCALE (NOVOLOG) 1 VIAL SQ SCH ×3 (06:14→17:38)
[2017-03-12] MEDS: SEVELAMER CARBONATE 800 MG TAB (FP) PO SCH ×3 (08:24→17:38)
--- NOTE | 2017-03-12 09:00 | PN ---
Progress Note (short form) - Note Progress Note: Patient had an acute hypoxic event yesterday. Now on Telemetry;?Cause Feels better today with less SOB Moving left hand better. No cough Had Urination X 1 this AM On Exam: Vital Signs Temp 98.6 F 03/12/17 06:00 Pulse 79 03/12/17 06:00 Resp 18 03/12/17 06:00 BP 130/58 03/12/17 06:00 Pulse Ox 86 L 03/11/17 21:00 Intake & Output 03/11/17 03/11/17 03/12/17 11:59 23:59 11:59 Intake Total 565 770 440 Output Total 210 150 Balance 565 560 290 Weight 267 lb 267 lb Intake: IVPB 200 250 200 Oral 365 520 240 Output: Urine 210 150 Void 210 150 Other: Voiding Method Bedside Commode Bedside Commode Bowel Movement Yes Yes: dark formed stool # Bowel Movements 1 1 Weight Measurement Method Standing Scale Standing Scale Alert Still total body edema Chest: Decreased breath sounds but clearer than Wed. Cor: Reg Ext:2+ edema Move fingers left hand better IMP: Presyncope Acute Cellulitis left hand, wrist and forearm MSSA sepsis NIDDM ASHD S/P CABG Anemia Plan: Dialysis today Venous duplex legs EKG and Troponin X 1 Acute renal Failure Acute pleural effusion Anemia Problem List - Problems (1) Cellulitis Code(s): L03.90 - CELLULITIS, UNSPECIFIED Qualifiers: Site of cellulitis: extremity Site of cellulitis of extremity: upper extremity Laterality: left Qualified Code(s): L03.114 - Cellulitis of left upper limb (2) GI bleed Code(s): K92.2 - GASTROINTESTINAL HEMORRHAGE, UNSPECIFIED (3) Acute renal failure (ARF) Code(s): N17.9 - ACUTE KIDNEY FAILURE, UNSPECIFIED (4) CAD (coronary artery disease) Code(s): I25.10 - ATHSCL HEART DISEASE OF [place] CORONARY ARTERY W/O ANG PCTRS (5) Gout Code(s): M10.9 - GOUT, UNSPECIFIED (6) Hypertension Code(s): I10 - ESSENTIAL (PRIMARY) HYPERTENSION (7) Anemia Code(s): D64.9 - ANEMIA, UNSPECIFIED (8) Leukocytosis Code(s): D72.829 - ELEVATED WHITE BLOOD CELL COUNT, UNSPECIFIED
[2017-03-12] MEDS: CHOLECALCIFEROL (VITAMIN D3) 1,000 UNIT TABLET (FP) PO SCH (10:16)
[2017-03-12] MEDS: EZETIMIBE 10 MG TABLET (FP) PO SCH (10:16)
[2017-03-12] MEDS: VITAMIN E 400 INTERNATIONAL-UNITS CAPSULE (FP) PO SCH ×2 (10:16→10:21)
[2017-03-12] MEDS: PANTOPRAZOLE 40 MG TABLET (FP) PO SCH (10:17)
[2017-03-12] MEDS: TORSEMIDE 20 MG TABLET (FP) PO SCH (10:17)
[2017-03-12] MEDS: ALLOPURINOL 100 MG TABLET (FP) PO SCH (10:17)
[2017-03-12] MEDS: METOPROLOL SUCCINATE 25 MG TAB.SR.24H (FP) PO SCH (10:17)
[2017-03-12] MEDS: POLYETHYLENE GLYCOL 3350 119 GM BTL PO SCH (10:18)
[2017-03-12 11:20] LABS: BASOPHIL 0.6 % (0-2.0); EOSINOPHIL 9.7 % (0-4.5); MCH 31.2 pg (25.7-33.7); MCHC 34.1 g/dl (32.0-35.9); MEAN CELL VOLUME 91.5 fl (80-96); MEAN PLT VOLUME 7.1 fl (7.5-11.1); PLATELET COUNT 310 K/MM3 (134-434); RDW 15.2 % (11.9-15.9); WHITE BLOOD COUNT 10.8 K/mm3 (4.0-10.0)
[2017-03-12] MEDS: HYDROCORTISONE 1% TOPICAL CREAM 30 GM TUBE TP PRN (11:48)
--- NOTE | 2017-03-12 11:52 | PN ---
Progress Note (short form) - Note Progress Note: Renal Follow up for JOE Pt seen and examined during isolated UF awake and alert denies any acute sob at this time no cp, fever, chills, N/V/D Vital Signs Temperature 98.4 F 03/12/17 10:00 Pulse Rate 61 03/12/17 10:50 Respiratory Rate 18 03/12/17 10:50 Blood Pressure 157/85 03/12/17 10:50 O2 Sat by Pulse Oximetry (%) 100 03/12/17 09:00 Intake & Output 03/09/17 03/10/17 03/11/17 03/12/17 23:59 23:59 23:59 23:59 Intake Total 750 1570 1335 810 Output Total 150 275 210 150 Balance 600 1295 1125 660 Weight 269 lb 1.6 oz 267 lb 7 oz 267 lb 267 lb Gen: NAD CVS: RRR Lungs: CTA Abd: soft NT/ND Ext: No LE edema, left wrist and hand swollen, eyrthema improved CBC, BMP 03/12/17 10:30 bmp pending Current Medications Acetaminophen (Tylenol -) 650 mg PO Q4H PRN PRN Reason: PAIN Last Admin: 03/12/17 10:26 Dose: 650 mg Allopurinol (Zyloprim -) 100 mg PO DAILY [facility] Last Admin: 03/12/17 10:17 Dose: 100 mg Atorvastatin Calcium (Lipitor -) 40 mg PO HS [facility] Last Admin: 03/11/17 22:36 Dose: 40 mg Cholecalciferol (Vitamin D3 -) 2,000 unit PO DAILY [facility] Last Admin: 03/12/17 10:16 Dose: 2,000 unit Ezetimibe (Zetia -) 10 mg PO DAILY [facility] Last Admin: 03/12/17 10:16 Dose: 10 mg Hydrocortisone (Hytone 1% Cream -) 1 applic TP BID PRN PRN Reason: FOR ITCHING Nafcillin Sodium 2 gm/ (Dextrose) 100 mls @ 100 mls/hr IVPB Q4H-IV [facility] Last Admin: 03/12/17 10:13 Dose: 100 mls/hr Insulin Aspart (Novolog Vial Sliding Scale -) 1 vial SQ TIDAC [facility] PRN Reason: Protocol Last Admin: 03/12/17 06:14 Dose: Not Given Meclizine HCl (Antivert -) 25 mg PO TID PRN PRN Reason: DIZZINESS Last Admin: 03/12/17 10:17 Dose: 25 mg Metoprolol Succinate (Toprol Xl -) 12.5 mg PO DAILY [facility] Last Admin: 03/12/17 10:17 Dose: 12.5 mg Ondansetron HCl (Zofran Injection) 4 mg IVPB Q8H PRN PRN Reason: NAUSEA Oxycodone HCl (Roxicodone -) 10 mg PO Q4H PRN PRN Reason: PAIN Last Admin: 03/12/17 10:26 Dose: 10 mg Pantoprazole Sodium (Protonix -) 40 mg PO DAILY [facility] Last Admin: 03/12/17 10:17 Dose: 40 mg Polyethylene Glycol (Miralax (For Daily Use) -) 17 gm PO DAILY [facility] Last Admin: 03/12/17 10:18 Dose: 17 gm Sevelamer Carbonate (Renvela -) 800 mg PO TIDCM [facility] Last Admin: 03/12/17 08:24 Dose: 800 mg Torsemide (Demadex -) 40 mg PO DAILY [facility] Last Admin: 03/12/17 10:17 Dose: 40 mg Vitamin E (Vitamin E -) 400 unit PO DAILY [facility] Last Admin: 03/12/17 10:21 Dose: Not Given A/P 71 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 #Anuric Acute Kidney Injury secondary to ATN in the setting of Sepsis/bacteremia Renal function w/o significant improvement to date will continue HD as needed pt is tolerating isolated UF today with gaol of removing 2L fluid restriction of 1.2L daily low salt diet will plan for HD tomorrow continue oral diuretics Dose all med for intermittent HD #Acute Anemia/GI Bleed trend CBC, Hgb is 7.5 today will recheck in AM and transfuse if Hgb remains below 7 Aubrey Acharya DO Problem List - Problems (1) Cellulitis Code(s): L03.90 - CELLULITIS, UNSPECIFIED Qualifiers: Site of cellulitis: extremity Site of cellulitis of extremity: upper extremity Laterality: left Qualified Code(s): L03.114 - Cellulitis of left upper limb (2) Acute renal failure (ARF) Code(s): N17.9 - ACUTE KIDNEY FAILURE, UNSPECIFIED (3) CAD (coronary artery disease) Code(s): I25.10 - ATHSCL HEART DISEASE OF [place] CORONARY ARTERY W/O ANG PCTRS (4) Hypertension Code(s): I10 - ESSENTIAL (PRIMARY) HYPERTENSION (5) Gout Code(s): M10.9 - GOUT, UNSPECIFIED (6) Leukocytosis Code(s): D72.829 - ELEVATED WHITE BLOOD CELL COUNT, UNSPECIFIED (7) Hyponatremia Code(s): E87.1 - HYPO-OSMOLALITY AND HYPONATREMIA
[2017-03-12 11:53] LABS: ANION GAP 10 (8-16); CALCIUM 8.4 mg/dL (8.5-10.1); CO2 30 mmol/L (21-32); CREATININE 5.4 mg/dL (0.7-1.3); GLUCOSE,RANDOM 206 mg/dL (74-106)
[2017-03-12 12:03] LABS: TROPONIN I 0.04 ng/ml (0.00-0.05)
--- NOTE | 2017-03-12 13:32 | EKG ---
Test Reason : Blood Pressure : / mmHG Vent. Rate : 095 BPM Atrial Rate : 095 BPM P-R Int : 156 ms QRS Dur : 078 ms QT Int : 356 ms P-R-T Axes : 039 019 064 degrees QTc Int : 447 ms NORMAL SINUS RHYTHM CANNOT RULE OUT INFERIOR INFARCT (CITED ON OR BEFORE 28-FEB-2017) ABNORMAL ECG WHEN COMPARED WITH ECG OF 28-FEB-2017 08:14, NONSPECIFIC T WAVE ABNORMALITY NOW EVIDENT IN LATERAL LEADS Confirmed by ANDRZEJ SOLIS MD ([id number]) on 03/12/2017 1:31:57 PM Referred By: CARLOS NGUYEN Confirmed By:ANDRZEJ SOLIS MD
--- NOTE | 2017-03-12 15:15 | PN ---
Progress Note, Physician History of Present Illness: patient looks much better wbc trending down hand slightly better - Current Medication List Current Medications: Active Medications Acetaminophen (Tylenol -) 650 mg PO Q4H PRN PRN Reason: PAIN Last Admin: 03/12/17 10:26 Dose: 650 mg Allopurinol (Zyloprim -) 100 mg PO DAILY [facility] Last Admin: 03/12/17 10:17 Dose: 100 mg Atorvastatin Calcium (Lipitor -) 40 mg PO HS [facility] Last Admin: 03/11/17 22:36 Dose: 40 mg Cholecalciferol (Vitamin D3 -) 2,000 unit PO DAILY [facility] Last Admin: 03/12/17 10:16 Dose: 2,000 unit Ezetimibe (Zetia -) 10 mg PO DAILY [facility] Last Admin: 03/12/17 10:16 Dose: 10 mg Hydrocortisone (Hytone 1% Cream -) 1 applic TP BID PRN PRN Reason: FOR ITCHING Last Admin: 03/12/17 11:48 Dose: 1 applic Nafcillin Sodium 2 gm/ (Dextrose) 100 mls @ 100 mls/hr IVPB Q4H-IV [facility] Last Admin: 03/12/17 13:56 Dose: 100 mls/hr Insulin Aspart (Novolog Vial Sliding Scale -) 1 vial SQ TIDAC [facility] PRN Reason: Protocol Last Admin: 03/12/17 11:51 Dose: 2 units Meclizine HCl (Antivert -) 25 mg PO TID PRN PRN Reason: DIZZINESS Last Admin: 03/12/17 10:17 Dose: 25 mg Metoprolol Succinate (Toprol Xl -) 12.5 mg PO DAILY [facility] Last Admin: 03/12/17 10:17 Dose: 12.5 mg Ondansetron HCl (Zofran Injection) 4 mg IVPB Q8H PRN PRN Reason: NAUSEA Oxycodone HCl (Roxicodone -) 10 mg PO Q4H PRN PRN Reason: PAIN Last Admin: 03/12/17 10:26 Dose: 10 mg Pantoprazole Sodium (Protonix -) 40 mg PO DAILY [facility] Last Admin: 03/12/17 10:17 Dose: 40 mg Polyethylene Glycol (Miralax (For Daily Use) -) 17 gm PO DAILY [facility] Last Admin: 03/12/17 10:18 Dose: 17 gm Sevelamer Carbonate (Renvela -) 800 mg PO TIDCM [facility] Last Admin: 03/12/17 12:00 Dose: Not Given Torsemide (Demadex -) 40 mg PO DAILY [facility] Last Admin: 03/12/17 10:17 Dose: 40 mg Vitamin E (Vitamin E -) 400 unit PO DAILY [facility] Last Admin: 03/12/17 10:21 Dose: Not Given - Objective Vital Signs: Vital Signs Temperature 98.4 F 03/12/17 10:00 Pulse Rate 78 03/12/17 13:30 Respiratory Rate 18 03/12/17 13:30 Blood Pressure 141/78 03/12/17 13:30 O2 Sat by Pulse Oximetry (%) 100 03/12/17 09:00 Constitutional: Yes: No Distress, Calm Cardiovascular: Yes: Regular Rate and Rhythm Respiratory: Yes: Regular, CTA Bilaterally Gastrointestinal: Yes: Normal Bowel Sounds, Soft Musculoskeletal: Yes: WNL Extremities: Yes: WNL Neurological: Yes: Alert, Oriented Psychiatric: Yes: Alert, Oriented Labs: CBC, BMP 03/12/17 10:30 03/12/17 10:30 INR, PTT INR 1.24 (0.82-1.09) H 03/06/17 06:30 Assessment/Plan sepsis septic left wrist joint gm positive bacteremia fever tenderness plan conitnue abx patient doing well continue dialysis
[2017-03-12] MEDS ORDERED: INSULIN (NOVOLOG) ASPART 100 UNITS/ML 10ML VIAL ONE (17:33)
[2017-03-12] MEDS: ATORVASTATIN CA 40 MG TABLET (FP) PO SCH (21:34)
[2017-03-13] MEDS ORDERED: PT OWN MED DRAWER 7, Y5N ONE ×5 (02:45→21:45)
[2017-03-13] MEDS: NAFCILLIN - 2 GM in DEXTROSE 5%-WATER 100 ML IVPB SCH ×6 (02:48→21:46)
[2017-03-13] MEDS: oxyCODONE HCL 5 MG TABLET PO PRN ×4 (05:59→21:46)
[2017-03-13] MEDS: INSULIN SLIDING SCALE (NOVOLOG) 1 VIAL SQ SCH ×3 (06:23→16:50)
[2017-03-13] MEDS: SEVELAMER CARBONATE 800 MG TAB (FP) PO SCH ×3 (09:13→18:19)
[2017-03-13] MEDS: VITAMIN E 400 INTERNATIONAL-UNITS CAPSULE (FP) PO SCH (09:22)
[2017-03-13] MEDS: EZETIMIBE 10 MG TABLET (FP) PO SCH (09:32)
[2017-03-13] MEDS: CHOLECALCIFEROL (VITAMIN D3) 1,000 UNIT TABLET (FP) PO SCH (09:32)
[2017-03-13] MEDS: METOPROLOL SUCCINATE 25 MG TAB.SR.24H (FP) PO SCH (09:33)
[2017-03-13] MEDS: TORSEMIDE 20 MG TABLET (FP) PO SCH (09:33)
[2017-03-13] MEDS: PANTOPRAZOLE 40 MG TABLET (FP) PO SCH (09:34)
[2017-03-13] MEDS: POLYETHYLENE GLYCOL 3350 119 GM BTL PO SCH (09:34)
[2017-03-13] MEDS: ALLOPURINOL 100 MG TABLET (FP) PO SCH (10:04)
[2017-03-13 10:08] LABS: BASOPHIL 0.8 % (0-2.0); EOSINOPHIL 6.9 % (0-4.5); MCH 31.4 pg (25.7-33.7); MCHC 34.1 g/dl (32.0-35.9); MEAN CELL VOLUME 92.1 fl (80-96); PLATELET COUNT 313 K/MM3 (134-434); RDW 15.1 % (11.9-15.9); WHITE BLOOD COUNT 9.9 K/mm3 (4.0-10.0)
--- NOTE | 2017-03-13 10:14 | PN ---
Progress Note (short form) - Note Progress Note: patient seen and examined this AM. marked improvement today and BUN and creatinine Denies shortness of breath, especially when sitting upright. Still some pain when he tries to move his left wrist and clench his fist on the left side. No chest pain. Was able to urinate twice a day On exam: Vital Signs Temp 97.9 F 03/13/17 18:15 Pulse 94 H 03/13/17 18:15 Resp 18 03/13/17 18:15 BP 145/64 03/13/17 18:15 Pulse Ox 96 03/13/17 09:10 Intake & Output 03/12/17 03/13/17 03/13/17 23:59 11:59 23:59 Intake Total 1393 791 6642 Output Total 75 150 100 Balance 248 42 3488 Weight 266 lb 12.8 oz Intake: IVPB 100 200 200 Oral 900 1480 Output: Urine 75 150 100 Void 75 150 100 Other: Voiding Method Urinal Toilet Toilet Bowel Movement Yes Yes: small Yes: Large # Bowel Movements 1 1 Weight Measurement Method Standing Scale patient is alert having dialysis currently Chest decreased breath sounds but clear cor regular. Abdomen obese Thighs and buttock to 3+ pedal edema. Extremities 1-2+ pedal edema. 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 Still some edema left hand with peeling of skin Abnormal Lab Results 03/13/17 03/13/17 03/13/17 09:30 09:30 13:35 RBC 2.47 L Hgb 7.7 L Hct 22.7 L MPV 7.0 L Lymphocytes % 6.7 L Monocytes % 10.6 H Eosinophils % 6.9 H Sodium 132 L Potassium 3.2 L Chloride 92 L 97 L Carbon Dioxide 34 H D Anion Gap 7 L BUN 49 H D 22 H D Creatinine 6.5 H D 2.9 H D Random Glucose 163 H D 166 H Calcium 8.1 L Phosphorus 7.0 H D impression: MSSA sepsis. Acute renal failure due to sepsis. Acute cellulitis left hand, forearm and wrist. Anemia. GI bleed, possibly exacerbated by previous nonsteroidals. ASHD history of coronary artery bypass x2. Plan: Followup lab basic profile and CBC. Renal and infectious disease followup PICC line. Problem List - Problems (1) Cellulitis Code(s): L03.90 - CELLULITIS, UNSPECIFIED Qualifiers: Site of cellulitis: extremity Site of cellulitis of extremity: upper extremity Laterality: left Qualified Code(s): L03.114 - Cellulitis of left upper limb (2) GI bleed Code(s): K92.2 - GASTROINTESTINAL HEMORRHAGE, UNSPECIFIED (3) Acute renal failure (ARF) Code(s): N17.9 - ACUTE KIDNEY FAILURE, UNSPECIFIED (4) CAD (coronary artery disease) Code(s): I25.10 - ATHSCL HEART DISEASE OF [place] CORONARY ARTERY W/O ANG PCTRS (5) Gout Code(s): M10.9 - GOUT, UNSPECIFIED (6) Hypertension Code(s): I10 - ESSENTIAL (PRIMARY) HYPERTENSION (7) Anemia Code(s): D64.9 - ANEMIA, UNSPECIFIED (8) Leukocytosis Code(s): D72.829 - ELEVATED WHITE BLOOD CELL COUNT, UNSPECIFIED
[2017-03-13] MEDS: ACETAMINOPHEN 325 MG TABLET (FP) PO PRN ×3 (10:23→21:46)
[2017-03-13 11:15] LABS: ANION GAP 13 (8-16); CALCIUM 8.6 mg/dL (8.5-10.1); CO2 27 mmol/L (21-32); CREATININE 6.5 mg/dL (0.7-1.3); GLUCOSE,RANDOM 163 mg/dL (74-106)
[2017-03-13] MEDS ORDERED: INSULIN (NOVOLOG) ASPART 100 UNITS/ML 10ML VIAL ONE ×2 (11:47→16:59)
--- NOTE | 2017-03-13 11:53 | PN ---
Progress Note, Physician Chief Complaint: Renal Follow up for JOE The patient seen in his room. Hemodialysis in progress. beside him. UF well tolerated. Denies any new complaints. Remains oliguric. Has clinical evidence of massive fluid overload. - Current Medication List Current Medications: Active Medications Acetaminophen (Tylenol -) 650 mg PO Q4H PRN PRN Reason: PAIN Last Admin: 03/13/17 10:23 Dose: 650 mg Allopurinol (Zyloprim -) 100 mg PO DAILY [facility] Last Admin: 03/13/17 10:04 Dose: 100 mg Atorvastatin Calcium (Lipitor -) 40 mg PO HS [facility] Last Admin: 03/12/17 21:34 Dose: 40 mg Cholecalciferol (Vitamin D3 -) 2,000 unit PO DAILY [facility] Last Admin: 03/13/17 09:32 Dose: 2,000 unit Ezetimibe (Zetia -) 10 mg PO DAILY [facility] Last Admin: 03/13/17 09:32 Dose: 10 mg Hydrocortisone (Hytone 1% Cream -) 1 applic TP BID PRN PRN Reason: FOR ITCHING Last Admin: 03/12/17 11:48 Dose: 1 applic Nafcillin Sodium 2 gm/ (Dextrose) 100 mls @ 100 mls/hr IVPB Q4H-IV [facility] Last Admin: 03/13/17 10:04 Dose: 100 mls/hr Insulin Aspart (Novolog Vial Sliding Scale -) 1 vial SQ TIDAC [facility] PRN Reason: Protocol Last Admin: 03/13/17 06:23 Dose: Not Given Meclizine HCl (Antivert -) 25 mg PO TID PRN PRN Reason: DIZZINESS Last Admin: 03/12/17 10:17 Dose: 25 mg Metoprolol Succinate (Toprol Xl -) 12.5 mg PO DAILY [facility] Last Admin: 03/13/17 09:33 Dose: 12.5 mg Ondansetron HCl (Zofran Injection) 4 mg IVPB Q8H PRN PRN Reason: NAUSEA Oxycodone HCl (Roxicodone -) 10 mg PO Q4H PRN PRN Reason: PAIN Last Admin: 03/13/17 10:22 Dose: 10 mg Pantoprazole Sodium (Protonix -) 40 mg PO DAILY [facility] Last Admin: 03/13/17 09:34 Dose: 40 mg Polyethylene Glycol (Miralax (For Daily Use) -) 17 gm PO DAILY [facility] Last Admin: 03/13/17 09:34 Dose: 17 gm Sevelamer Carbonate (Renvela -) 800 mg PO TIDCM [facility] Last Admin: 03/13/17 09:13 Dose: 800 mg Torsemide (Demadex -) 40 mg PO DAILY [facility] Last Admin: 03/13/17 09:33 Dose: 40 mg Vitamin E (Vitamin E -) 400 unit PO DAILY [facility] Last Admin: 03/13/17 09:22 Dose: Not Given - Objective Vital Signs: Vital Signs Temperature 98.9 F 03/13/17 10:00 Pulse Rate 92 H 03/13/17 10:35 Respiratory Rate 18 03/13/17 10:35 Blood Pressure 160/83 03/13/17 10:35 O2 Sat by Pulse Oximetry (%) 96 03/13/17 09:10 Constitutional: Yes: Well Nourished, Anxious Eyes: Yes: Conjunctiva Clear HENT: Yes: Normocephalic Neck: Yes: Trachea Midline Respiratory: Yes: Regular, Diminished, Rales Gastrointestinal: Yes: Normal Bowel Sounds, Abdomen, Obese Genitourinary: Yes: Oliguria, Scrotal Edema. No: CVA Tenderness - Left, CVA Tenderness - Right Musculoskeletal: Yes: Joint Stiffness Edema: Yes Edema: LUE: 2+, RUE: 2+, LLE: 3+, RLE: 3+ Neurological: Yes: Alert, Oriented Psychiatric: Yes: Alert Labs: CBC, BMP 03/13/17 09:30 03/13/17 09:30 INR, PTT INR 1.24 (0.82-1.09) H 03/06/17 06:30 Problem List - Problems (1) Acute renal failure (ARF) Code(s): N17.9 - ACUTE KIDNEY FAILURE, UNSPECIFIED (2) Anemia Code(s): D64.9 - ANEMIA, UNSPECIFIED (3) CAD (coronary artery disease) Code(s): I25.10 - ATHSCL HEART DISEASE OF [place] CORONARY ARTERY W/O ANG PCTRS (4) Cellulitis Code(s): L03.90 - CELLULITIS, UNSPECIFIED Qualifiers: Site of cellulitis: extremity Site of cellulitis of extremity: upper extremity Laterality: left Qualified Code(s): L03.114 - Cellulitis of left upper limb (5) Gout Code(s): M10.9 - GOUT, UNSPECIFIED (6) Hypertension Code(s): I10 - ESSENTIAL (PRIMARY) HYPERTENSION (7) Leukocytosis Code(s): D72.829 - ELEVATED WHITE BLOOD CELL COUNT, UNSPECIFIED (8) MSSA (methicillin susceptible Staphylococcus aureus) infection Code(s): A49.01 - METHICILLIN SUSCEP STAPH INFECTION, UNSP SITE Assessment/Plan 71 y/o male with Acute Kidney Injury, massive fluid overlad, MSSA bacteremia and h/o Gout. So far no evidence of Renal recovery. Vital signs stable. Electrolytes in acceptable range. PLAN: Next HD tomorrow, with Isolated UF for 3 hours. Will try to refer to Outpatient HD center in view of the fact that it may be several weeks before the patient's renal recovery could be appreciated. Will monitor the Renal functions with you. Thank you. Rivka Holly MD
--- NOTE | 2017-03-13 13:34 | PN ---
Progress Note, Physician History of Present Illness: doing well no new issues - Current Medication List Current Medications: Active Medications Acetaminophen (Tylenol -) 650 mg PO Q4H PRN PRN Reason: PAIN Last Admin: 03/13/17 10:23 Dose: 650 mg Allopurinol (Zyloprim -) 100 mg PO DAILY [facility] Last Admin: 03/13/17 10:04 Dose: 100 mg Atorvastatin Calcium (Lipitor -) 40 mg PO HS [facility] Last Admin: 03/12/17 21:34 Dose: 40 mg Cholecalciferol (Vitamin D3 -) 2,000 unit PO DAILY [facility] Last Admin: 03/13/17 09:32 Dose: 2,000 unit Ezetimibe (Zetia -) 10 mg PO DAILY [facility] Last Admin: 03/13/17 09:32 Dose: 10 mg Hydrocortisone (Hytone 1% Cream -) 1 applic TP BID PRN PRN Reason: FOR ITCHING Last Admin: 03/12/17 11:48 Dose: 1 applic Nafcillin Sodium 2 gm/ (Dextrose) 100 mls @ 100 mls/hr IVPB Q4H-IV [facility] Last Admin: 03/13/17 10:04 Dose: 100 mls/hr Insulin Aspart (Novolog Vial Sliding Scale -) 1 vial SQ TIDAC [facility] PRN Reason: Protocol Last Admin: 03/13/17 12:02 Dose: 2 units Meclizine HCl (Antivert -) 25 mg PO TID PRN PRN Reason: DIZZINESS Last Admin: 03/12/17 10:17 Dose: 25 mg Metoprolol Succinate (Toprol Xl -) 12.5 mg PO DAILY [facility] Last Admin: 03/13/17 09:33 Dose: 12.5 mg Ondansetron HCl (Zofran Injection) 4 mg IVPB Q8H PRN PRN Reason: NAUSEA Oxycodone HCl (Roxicodone -) 10 mg PO Q4H PRN PRN Reason: PAIN Last Admin: 03/13/17 10:22 Dose: 10 mg Pantoprazole Sodium (Protonix -) 40 mg PO DAILY [facility] Last Admin: 03/13/17 09:34 Dose: 40 mg Polyethylene Glycol (Miralax (For Daily Use) -) 17 gm PO DAILY [facility] Last Admin: 03/13/17 09:34 Dose: 17 gm Sevelamer Carbonate (Renvela -) 800 mg PO TIDCM [facility] Last Admin: 03/13/17 12:02 Dose: 800 mg Torsemide (Demadex -) 40 mg PO DAILY [facility] Last Admin: 03/13/17 09:33 Dose: 40 mg Vitamin E (Vitamin E -) 400 unit PO DAILY [facility] Last Admin: 03/13/17 09:22 Dose: Not Given - Objective Vital Signs: Vital Signs Temperature 98.9 F 03/13/17 10:00 Pulse Rate 81 03/13/17 12:35 Respiratory Rate 18 03/13/17 12:35 Blood Pressure 156/86 03/13/17 12:35 O2 Sat by Pulse Oximetry (%) 96 03/13/17 09:10 Constitutional: Yes: No Distress, Calm Cardiovascular: Yes: Regular Rate and Rhythm Respiratory: Yes: Regular, CTA Bilaterally Gastrointestinal: Yes: Normal Bowel Sounds, Soft Musculoskeletal: Yes: Other Extremities: Yes: Other Edema: LUE: 2+, RUE: 2+, LLE: 3+, RLE: 3+ Neurological: Yes: Alert, Oriented Psychiatric: Yes: Alert, Oriented Labs: CBC, BMP 03/13/17 09:30 03/13/17 09:30 INR, PTT INR 1.24 (0.82-1.09) H 03/06/17 06:30 Assessment/Plan sepsis septic left wrist joint gm positive bacteremia fever tenderness plan conitnue abx patient doing well continue dialysis hand h slowly drifting down consider 1 unit of blood if needed
[2017-03-13 14:49] LABS: ANION GAP 7 (8-16); CALCIUM 8.1 mg/dL (8.5-10.1); CO2 34 mmol/L (21-32); CREATININE 2.9 mg/dL (0.7-1.3); GLUCOSE,RANDOM 166 mg/dL (74-106)
--- NOTE | 2017-03-13 15:01 | PN ---
GI Progress Note Subjective: GI NOte: Tolerating solids without difficulty. No abdominal pain. Arm is less tender. Has begun to void but is still requiring dialysis. 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 Continue PPI.
[2017-03-13] MEDS ORDERED: PICC LINE 8 ML FLUSH PROTOCOL IVPUSH PRN (20:23)
[2017-03-13] MEDS: ATORVASTATIN CA 40 MG TABLET (FP) PO SCH (21:46)
[2017-03-14] MEDS: NAFCILLIN - 2 GM in DEXTROSE 5%-WATER 100 ML IVPB SCH ×6 (03:00→21:52)
[2017-03-14] MEDS ORDERED: PT OWN MED DRAWER 7, Y5N ONE ×5 (03:27→21:45)
[2017-03-14] MEDS: INSULIN SLIDING SCALE (NOVOLOG) 1 VIAL SQ SCH ×3 (07:32→17:20)
[2017-03-14] MEDS: oxyCODONE HCL 5 MG TABLET PO PRN ×3 (07:36→22:01)
[2017-03-14] MEDS: ACETAMINOPHEN 325 MG TABLET (FP) PO PRN ×3 (07:36→22:00)
[2017-03-14 08:23] LABS: BASOPHIL 1.2 % (0-2.0); EOSINOPHIL 10.6 % (0-4.5); MCH 31.5 pg (25.7-33.7); MCHC 34.5 g/dl (32.0-35.9); MEAN CELL VOLUME 91.4 fl (80-96); MEAN PLT VOLUME 7.1 fl (7.5-11.1); PLATELET COUNT 294 K/MM3 (134-434); RDW 15.4 % (11.9-15.9)
[2017-03-14 08:36] LABS: ANION GAP 10 (8-16); CALCIUM 8.2 mg/dL (8.5-10.1); CO2 29 mmol/L (21-32); CREATININE 4.9 mg/dL (0.7-1.3); GLUCOSE,RANDOM 173 mg/dL (74-106)
[2017-03-14] MEDS: TORSEMIDE 20 MG TABLET (FP) PO SCH (10:42)
[2017-03-14] MEDS: PANTOPRAZOLE 40 MG TABLET (FP) PO SCH (10:42)
[2017-03-14] MEDS: CHOLECALCIFEROL (VITAMIN D3) 1,000 UNIT TABLET (FP) PO SCH (10:43)
[2017-03-14] MEDS: VITAMIN E 400 INTERNATIONAL-UNITS CAPSULE (FP) PO SCH ×2 (10:43→11:09)
[2017-03-14] MEDS: METOPROLOL SUCCINATE 25 MG TAB.SR.24H (FP) PO SCH (10:43)
[2017-03-14] MEDS: EZETIMIBE 10 MG TABLET (FP) PO SCH (10:44)
[2017-03-14] MEDS: ALLOPURINOL 100 MG TABLET (FP) PO SCH (10:44)
[2017-03-14] MEDS: SEVELAMER CARBONATE 800 MG TAB (FP) PO SCH ×3 (11:00→17:20)
--- NOTE | 2017-03-14 11:02 | PN ---
Progress Note, Physician History of Present Illness: Feeling OK this morning. Back was bothering him, but positioned better in bed now. Receiving dialysis, noting small amount of urine. - Current Medication List Current Medications: Active Medications Acetaminophen (Tylenol -) 650 mg PO Q4H PRN PRN Reason: PAIN Last Admin: 03/14/17 07:36 Dose: 650 mg Allopurinol (Zyloprim -) 100 mg PO DAILY [facility] Last Admin: 03/14/17 10:44 Dose: 100 mg Atorvastatin Calcium (Lipitor -) 40 mg PO HS [facility] Last Admin: 03/13/17 21:46 Dose: 40 mg Cholecalciferol (Vitamin D3 -) 2,000 unit PO DAILY [facility] Last Admin: 03/14/17 10:43 Dose: 2,000 unit Ezetimibe (Zetia -) 10 mg PO DAILY [facility] Last Admin: 03/14/17 10:44 Dose: 10 mg Hydrocortisone (Hytone 1% Cream -) 1 applic TP BID PRN PRN Reason: FOR ITCHING Last Admin: 03/12/17 11:48 Dose: 1 applic IV Flush (Picc Line Flush) 8 ml IVPUSH PRN PRN PRN Reason: Protocol Nafcillin Sodium 2 gm/ (Dextrose) 100 mls @ 100 mls/hr IVPB Q4H-IV [facility] Last Admin: 03/14/17 10:42 Dose: 100 mls/hr Insulin Aspart (Novolog Vial Sliding Scale -) 1 vial SQ TIDAC [facility] PRN Reason: Protocol Last Admin: 03/14/17 07:32 Dose: 2 units Meclizine HCl (Antivert -) 25 mg PO TID PRN PRN Reason: DIZZINESS Last Admin: 03/12/17 10:17 Dose: 25 mg Metoprolol Succinate (Toprol Xl -) 12.5 mg PO DAILY [facility] Last Admin: 03/14/17 10:43 Dose: 12.5 mg Ondansetron HCl (Zofran Injection) 4 mg IVPB Q8H PRN PRN Reason: NAUSEA Oxycodone HCl (Roxicodone -) 10 mg PO Q4H PRN PRN Reason: PAIN Last Admin: 03/14/17 07:36 Dose: 10 mg Pantoprazole Sodium (Protonix -) 40 mg PO DAILY [facility] Last Admin: 03/14/17 10:42 Dose: 40 mg Polyethylene Glycol (Miralax (For Daily Use) -) 17 gm PO DAILY [facility] Last Admin: 03/13/17 09:34 Dose: 17 gm Sevelamer Carbonate (Renvela -) 800 mg PO TIDCM [facility] Last Admin: 03/13/17 18:19 Dose: 800 mg Torsemide (Demadex -) 40 mg PO DAILY [facility] Last Admin: 03/14/17 10:42 Dose: 40 mg Vitamin E (Vitamin E -) 400 unit PO DAILY [facility] Last Admin: 03/14/17 10:43 Dose: 400 unit - Objective Vital Signs: Vital Signs Temperature 99.1 F 03/14/17 07:27 Pulse Rate 70 03/14/17 10:33 Respiratory Rate 22 03/14/17 07:27 Blood Pressure 144/62 03/14/17 07:27 O2 Sat by Pulse Oximetry (%) 97 03/14/17 10:33 Constitutional: Yes: No Distress Neck: Yes: Supple, Trachea Midline Cardiovascular: Yes: Regular Rate and Rhythm, S1, S2. No: Murmur Respiratory: Yes: Regular, CTA Bilaterally. No: Rales, Rhonchi, Wheezes Gastrointestinal: Yes: Normal Bowel Sounds, Soft. No: Distention, Tenderness Extremities: Yes: Erythema (fading on left wrist/hand) Edema: Yes Edema: LUE: 2+, RUE: 2+, LLE: 2+, RLE: 2+ Neurological: Yes: Alert, Oriented Labs: CBC, BMP 03/14/17 08:00 03/14/17 08:00 INR, PTT INR 1.24 (0.82-1.09) H 03/06/17 06:30 Assessment/Plan Current Active Problems Acute renal failure (ARF) (Acute) Anemia (Acute) CAD (coronary artery disease) (Acute) Cellulitis (Acute) GI bleed (Acute) Gout (Acute) Hypertension (Acute) Leukocytosis (Acute) MSSA (methicillin susceptible Staphylococcus aureus) infection (Acute) Septic arthritis (Acute) -cont abx, dialysis
[2017-03-14] MEDS: POLYETHYLENE GLYCOL 3350 119 GM BTL PO SCH (11:06)
--- NOTE | 2017-03-14 11:46 | PN ---
Progress Note, Physician Chief Complaint: Renal Follow up for JOE The patient seen in his room. Much more awake and alert than yesterday. Had a good BM today. HD in progress. UF well tolerated. UF goal 3 Kg. visiting. Still with significant edema of the LE, but much better. Remains oliguric. Denies any new complaints. - Current Medication List Current Medications: Active Medications Acetaminophen (Tylenol -) 650 mg PO Q4H PRN PRN Reason: PAIN Last Admin: 03/14/17 07:36 Dose: 650 mg Allopurinol (Zyloprim -) 100 mg PO DAILY [facility] Last Admin: 03/14/17 10:44 Dose: 100 mg Atorvastatin Calcium (Lipitor -) 40 mg PO HS [facility] Last Admin: 03/13/17 21:46 Dose: 40 mg Cholecalciferol (Vitamin D3 -) 2,000 unit PO DAILY [facility] Last Admin: 03/14/17 10:43 Dose: 2,000 unit Ezetimibe (Zetia -) 10 mg PO DAILY [facility] Last Admin: 03/14/17 10:44 Dose: 10 mg Hydrocortisone (Hytone 1% Cream -) 1 applic TP BID PRN PRN Reason: FOR ITCHING Last Admin: 03/12/17 11:48 Dose: 1 applic IV Flush (Picc Line Flush) 8 ml IVPUSH PRN PRN PRN Reason: Protocol Nafcillin Sodium 2 gm/ (Dextrose) 100 mls @ 100 mls/hr IVPB Q4H-IV [facility] Last Admin: 03/14/17 10:42 Dose: 100 mls/hr Insulin Aspart (Novolog Vial Sliding Scale -) 1 vial SQ TIDAC [facility] PRN Reason: Protocol Last Admin: 03/14/17 07:32 Dose: 2 units Meclizine HCl (Antivert -) 25 mg PO TID PRN PRN Reason: DIZZINESS Last Admin: 03/12/17 10:17 Dose: 25 mg Metoprolol Succinate (Toprol Xl -) 12.5 mg PO DAILY [facility] Last Admin: 03/14/17 10:43 Dose: 12.5 mg Ondansetron HCl (Zofran Injection) 4 mg IVPB Q8H PRN PRN Reason: NAUSEA Oxycodone HCl (Roxicodone -) 10 mg PO Q4H PRN PRN Reason: PAIN Last Admin: 03/14/17 07:36 Dose: 10 mg Pantoprazole Sodium (Protonix -) 40 mg PO DAILY [facility] Last Admin: 03/14/17 10:42 Dose: 40 mg Polyethylene Glycol (Miralax (For Daily Use) -) 17 gm PO DAILY [facility] Last Admin: 03/14/17 11:06 Dose: 17 gm Sevelamer Carbonate (Renvela -) 800 mg PO TIDCM [facility] Last Admin: 03/14/17 11:00 Dose: 800 mg Torsemide (Demadex -) 40 mg PO DAILY [facility] Last Admin: 03/14/17 10:42 Dose: 40 mg Vitamin E (Vitamin E -) 400 unit PO DAILY [facility] Last Admin: 03/14/17 11:09 Dose: Not Given - Objective Vital Signs: Vital Signs Temperature 98.4 F 03/14/17 07:30 Pulse Rate 80 03/14/17 10:45 Respiratory Rate 18 03/14/17 10:45 Blood Pressure 168/94 03/14/17 10:45 O2 Sat by Pulse Oximetry (%) 97 03/14/17 10:33 Constitutional: Yes: No Distress, Calm, Pallor Eyes: Yes: Conjunctiva Clear HENT: Yes: Atraumatic, Normocephalic Neck: Yes: Trachea Midline Cardiovascular: Yes: S1, S2 Respiratory: Yes: CTA Bilaterally, Diminished Gastrointestinal: Yes: Normal Bowel Sounds, Soft, Abdomen, Obese Edema: Yes Edema: LLE: 2+, RLE: 2+ Neurological: Yes: Alert, Oriented Labs: CBC, BMP 03/14/17 08:00 03/14/17 08:00 INR, PTT INR 1.24 (0.82-1.09) H 03/06/17 06:30 Problem List - Problems (1) Acute renal failure (ARF) Code(s): N17.9 - ACUTE KIDNEY FAILURE, UNSPECIFIED (2) Anemia Code(s): D64.9 - ANEMIA, UNSPECIFIED (3) CAD (coronary artery disease) Code(s): I25.10 - ATHSCL HEART DISEASE OF [place] CORONARY ARTERY W/O ANG PCTRS (4) Cellulitis Code(s): L03.90 - CELLULITIS, UNSPECIFIED Qualifiers: Site of cellulitis: extremity Site of cellulitis of extremity: upper extremity Laterality: left Qualified Code(s): L03.114 - Cellulitis of left upper limb (5) Gout Code(s): M10.9 - GOUT, UNSPECIFIED (6) Hypertension Code(s): I10 - ESSENTIAL (PRIMARY) HYPERTENSION (7) Leukocytosis Code(s): D72.829 - ELEVATED WHITE BLOOD CELL COUNT, UNSPECIFIED (8) MSSA (methicillin susceptible Staphylococcus aureus) infection Code(s): A49.01 - METHICILLIN SUSCEP STAPH INFECTION, UNSP SITE Assessment/Plan 71 y/o male with Acute Kidney Injury, massive fluid overlad, MSSA bacteremia and h/o Gout. So far no evidence of Renal recovery. Vital signs stable. Tendency for Hypokalemia. Will keep watch. On IV nafcillin q4H. PLAN: Will hold Dialysis tomorrow. Will monitor for any signs of renal recovery, which is not quite apparent so far. If the Renal recovery is delayed significantly, could refer to [facility] for outpatient Dialysis. Will monitor the Renal functions with you. Thank you. Rivka Holly MD
--- NOTE | 2017-03-14 13:08 | PN ---
Progress Note, Physician History of Present Illness: doing well no new issues still with wrist pain small spot noticed on wrist--which could be forming abscess has passed urine 3 times about 300 odd - Current Medication List Current Medications: Active Medications Acetaminophen (Tylenol -) 650 mg PO Q4H PRN PRN Reason: PAIN Last Admin: 03/14/17 07:36 Dose: 650 mg Allopurinol (Zyloprim -) 100 mg PO DAILY [facility] Last Admin: 03/14/17 10:44 Dose: 100 mg Atorvastatin Calcium (Lipitor -) 40 mg PO HS [facility] Last Admin: 03/13/17 21:46 Dose: 40 mg Cholecalciferol (Vitamin D3 -) 2,000 unit PO DAILY [facility] Last Admin: 03/14/17 10:43 Dose: 2,000 unit Ezetimibe (Zetia -) 10 mg PO DAILY [facility] Last Admin: 03/14/17 10:44 Dose: 10 mg Hydrocortisone (Hytone 1% Cream -) 1 applic TP BID PRN PRN Reason: FOR ITCHING Last Admin: 03/12/17 11:48 Dose: 1 applic IV Flush (Picc Line Flush) 8 ml IVPUSH PRN PRN PRN Reason: Protocol Nafcillin Sodium 2 gm/ (Dextrose) 100 mls @ 100 mls/hr IVPB Q4H-IV [facility] Last Admin: 03/14/17 10:42 Dose: 100 mls/hr Insulin Aspart (Novolog Vial Sliding Scale -) 1 vial SQ TIDAC [facility] PRN Reason: Protocol Last Admin: 03/14/17 11:42 Dose: 2 units Meclizine HCl (Antivert -) 25 mg PO TID PRN PRN Reason: DIZZINESS Last Admin: 03/12/17 10:17 Dose: 25 mg Metoprolol Succinate (Toprol Xl -) 12.5 mg PO DAILY [facility] Last Admin: 03/14/17 10:43 Dose: 12.5 mg Ondansetron HCl (Zofran Injection) 4 mg IVPB Q8H PRN PRN Reason: NAUSEA Oxycodone HCl (Roxicodone -) 10 mg PO Q4H PRN PRN Reason: PAIN Last Admin: 03/14/17 07:36 Dose: 10 mg Pantoprazole Sodium (Protonix -) 40 mg PO DAILY [facility] Last Admin: 09/23/17 10:42 Dose: 40 mg Polyethylene Glycol (Miralax (For Daily Use) -) 17 gm PO DAILY [facility] Last Admin: 03/14/17 11:06 Dose: 17 gm Sevelamer Carbonate (Renvela -) 800 mg PO TIDCM [facility] Last Admin: 03/14/17 11:00 Dose: 800 mg Torsemide (Demadex -) 40 mg PO DAILY [facility] Last Admin: 03/14/17 10:42 Dose: 40 mg Vitamin E (Vitamin E -) 400 unit PO DAILY [facility] Last Admin: 03/14/17 11:09 Dose: Not Given - Objective Vital Signs: Vital Signs Temperature 99.1 F 03/14/17 10:00 Pulse Rate 80 03/14/17 10:45 Respiratory Rate 18 03/14/17 10:45 Blood Pressure 168/94 03/14/17 10:45 O2 Sat by Pulse Oximetry (%) 97 03/14/17 10:33 Constitutional: Yes: No Distress, Calm Eyes: Yes: Conjunctiva Clear Cardiovascular: Yes: Regular Rate and Rhythm Respiratory: Yes: Regular, CTA Bilaterally Gastrointestinal: Yes: Normal Bowel Sounds, Soft Musculoskeletal: Yes: WNL Extremities: Yes: Other Integumentary: Yes: Other (wrist swollen improving) Neurological: Yes: Alert, Oriented Psychiatric: Yes: Alert, Oriented Labs: CBC, BMP 03/14/17 08:00 03/14/17 08:00 INR, PTT INR 1.24 (0.82-1.09) H 03/06/17 06:30 Assessment/Plan sepsis septic left wrist joint gm positive bacteremia fever tenderness plan conitnue abx patient doing well continue dialysis close watch on the wrist
[2017-03-14] MEDS: ATORVASTATIN CA 40 MG TABLET (FP) PO SCH (21:52)
[2017-03-15] MEDS: NAFCILLIN - 2 GM in DEXTROSE 5%-WATER 100 ML IVPB SCH ×5 (02:14→21:58)
[2017-03-15] MEDS: INSULIN SLIDING SCALE (NOVOLOG) 1 VIAL SQ SCH ×3 (06:59→18:20)
[2017-03-15] MEDS: SEVELAMER CARBONATE 800 MG TAB (FP) PO SCH ×3 (08:13→18:20)
[2017-03-15] MEDS: oxyCODONE HCL 5 MG TABLET PO PRN ×2 (08:14→13:46)
[2017-03-15 08:39] LABS: MCH 31.6 pg (25.7-33.7); MCHC 34.8 g/dl (32.0-35.9); MEAN CELL VOLUME 90.9 fl (80-96); MEAN PLT VOLUME 6.9 fl (7.5-11.1); NEUTROPHILS 72.1 % (42.8-82.8); PLATELET COUNT 290 K/MM3 (134-434); RDW 15.4 % (11.9-15.9); WHITE BLOOD COUNT 10.5 K/mm3 (4.0-10.0)
[2017-03-15 09:04] LABS: ALBUMIN 1.7 g/dl (3.4-5.0); ANION GAP 15 (8-16); CALCIUM 8.4 mg/dL (8.5-10.1); CO2 26 mmol/L (21-32); CREATININE 6.8 mg/dL (0.7-1.3); GLUCOSE,RANDOM 193 mg/dL (74-106); SGOT/AST 59 U/L (15-37); SGPT/ALT 31 U/L (12-78)
[2017-03-15 09:05] LABS: ALK PHOS 85 U/L (45-117); BILIRUBIN,TOTAL 5.8 mg/dL (0.2-1.0); TOT PROT 5.9 g/dl (6.4-8.2)
[2017-03-15] MEDS ORDERED: PT OWN MED DRAWER 7, Y5N ONE ×4 (09:33→15:08)
[2017-03-15] MEDS: ACETAMINOPHEN 325 MG TABLET (FP) PO PRN ×2 (09:41→13:47)
[2017-03-15] MEDS: CHOLECALCIFEROL (VITAMIN D3) 1,000 UNIT TABLET (FP) PO SCH (09:41)
[2017-03-15] MEDS: ALLOPURINOL 100 MG TABLET (FP) PO SCH (09:41)
[2017-03-15] MEDS: METOPROLOL SUCCINATE 25 MG TAB.SR.24H (FP) PO SCH (09:41)
[2017-03-15] MEDS: VITAMIN E 400 INTERNATIONAL-UNITS CAPSULE (FP) PO SCH ×2 (09:42→09:52)
[2017-03-15] MEDS: TORSEMIDE 20 MG TABLET (FP) PO SCH (09:42)
[2017-03-15] MEDS: EZETIMIBE 10 MG TABLET (FP) PO SCH (09:42)
[2017-03-15] MEDS: PANTOPRAZOLE 40 MG TABLET (FP) PO SCH (09:42)
--- NOTE | 2017-03-15 09:54 | PN ---
Progress Note, Physician History of Present Illness: Notes slight shortness of breath with exertion, otherwise feeling a little better. Still with small amounts of urine. Weight went down slightly today. - Current Medication List Current Medications: Active Medications Acetaminophen (Tylenol -) 650 mg PO Q4H PRN PRN Reason: PAIN Last Admin: 03/15/17 09:41 Dose: 650 mg Allopurinol (Zyloprim -) 100 mg PO DAILY [facility] Last Admin: 03/15/17 09:41 Dose: 100 mg Atorvastatin Calcium (Lipitor -) 40 mg PO HS [facility] Last Admin: 03/14/17 21:52 Dose: 40 mg Cholecalciferol (Vitamin D3 -) 2,000 unit PO DAILY [facility] Last Admin: 03/15/17 09:41 Dose: 2,000 unit Ezetimibe (Zetia -) 10 mg PO DAILY [facility] Last Admin: 03/15/17 09:42 Dose: 10 mg Hydrocortisone (Hytone 1% Cream -) 1 applic TP BID PRN PRN Reason: FOR ITCHING Last Admin: 03/12/17 11:48 Dose: 1 applic IV Flush (Picc Line Flush) 8 ml IVPUSH PRN PRN PRN Reason: Protocol Nafcillin Sodium 2 gm/ (Dextrose) 100 mls @ 100 mls/hr IVPB Q4H-IV [facility] Last Admin: 03/15/17 05:38 Dose: 100 mls/hr Insulin Aspart (Novolog Vial Sliding Scale -) 1 vial SQ TIDAC [facility] PRN Reason: Protocol Last Admin: 03/15/17 06:59 Dose: Not Given Meclizine HCl (Antivert -) 25 mg PO TID PRN PRN Reason: DIZZINESS Last Admin: 03/12/17 10:17 Dose: 25 mg Metoprolol Succinate (Toprol Xl -) 12.5 mg PO DAILY [facility] Last Admin: 03/15/17 09:41 Dose: 12.5 mg Ondansetron HCl (Zofran Injection) 4 mg IVPB Q8H PRN PRN Reason: NAUSEA Oxycodone HCl (Roxicodone -) 10 mg PO Q4H PRN PRN Reason: PAIN Last Admin: 03/15/17 08:14 Dose: 10 mg Pantoprazole Sodium (Protonix -) 40 mg PO DAILY [facility] Last Admin: 03/15/17 09:42 Dose: 40 mg Polyethylene Glycol (Miralax (For Daily Use) -) 17 gm PO DAILY [facility] Last Admin: 03/14/17 11:06 Dose: 17 gm Sevelamer Carbonate (Renvela -) 800 mg PO TIDCM [facility] Last Admin: 03/15/17 08:13 Dose: 800 mg Torsemide (Demadex -) 40 mg PO DAILY [facility] Last Admin: 03/15/17 09:42 Dose: 40 mg Vitamin E (Vitamin E -) 400 unit PO DAILY [facility] Last Admin: 03/14/17 11:09 Dose: Not Given - Objective Vital Signs: Vital Signs Temperature 99.6 F 03/15/17 06:55 Pulse Rate 95 H 03/15/17 06:55 Respiratory Rate 18 03/15/17 06:55 Blood Pressure 154/74 03/15/17 06:55 O2 Sat by Pulse Oximetry (%) 97 03/14/17 10:33 Constitutional: Yes: No Distress, Calm Neck: Yes: Supple, Trachea Midline Cardiovascular: Yes: Regular Rate and Rhythm, S1, S2. No: Murmur Respiratory: Yes: Regular, Diminished. No: Rales, Rhonchi, Wheezes Gastrointestinal: Yes: Normal Bowel Sounds, Soft. No: Distention, Tenderness Edema: Yes Edema: LUE: 2+, RUE: 1+, LLE: 2+, RLE: 2+ Integumentary: Yes: Other (scaling skin left wrist/hand) Neurological: Yes: Alert, Oriented Labs: CBC, BMP 03/15/17 08:20 03/15/17 08:20 INR, PTT INR 1.24 (0.82-1.09) H 03/06/17 06:30 Assessment/Plan Current Active Problems Acute renal failure (ARF) (Acute) Anemia (Acute) CAD (coronary artery disease) (Acute) Cellulitis (Acute) GI bleed (Acute) Gout (Acute) Hypertension (Acute) Leukocytosis (Acute) MSSA (methicillin susceptible Staphylococcus aureus) infection (Acute) Septic arthritis (Acute) -cont abx -check chest xray due to increased shortness of breath
[2017-03-15] MEDS: POLYETHYLENE GLYCOL 3350 119 GM BTL PO SCH (10:00)
--- NOTE | 2017-03-15 13:50 | PN ---
Progress Note, Physician History of Present Illness: patient passing urine about 400 till now today patient has developed 2 red spots on the inner thigh - Current Medication List Current Medications: Active Medications Acetaminophen (Tylenol -) 650 mg PO Q4H PRN PRN Reason: PAIN Last Admin: 03/15/17 09:41 Dose: 650 mg Allopurinol (Zyloprim -) 100 mg PO DAILY [facility] Last Admin: 03/15/17 09:41 Dose: 100 mg Atorvastatin Calcium (Lipitor -) 40 mg PO HS [facility] Last Admin: 03/14/17 21:52 Dose: 40 mg Cholecalciferol (Vitamin D3 -) 2,000 unit PO DAILY [facility] Last Admin: 03/15/17 09:41 Dose: 2,000 unit Ezetimibe (Zetia -) 10 mg PO DAILY [facility] Last Admin: 03/15/17 09:42 Dose: 10 mg Hydrocortisone (Hytone 1% Cream -) 1 applic TP BID PRN PRN Reason: FOR ITCHING Last Admin: 03/12/17 11:48 Dose: 1 applic IV Flush (Picc Line Flush) 8 ml IVPUSH PRN PRN PRN Reason: Protocol Nafcillin Sodium 2 gm/ (Dextrose) 100 mls @ 100 mls/hr IVPB Q4H-IV [facility] Last Admin: 03/15/17 10:00 Dose: 100 mls/hr Insulin Aspart (Novolog Vial Sliding Scale -) 1 vial SQ TIDAC [facility] PRN Reason: Protocol Last Admin: 03/15/17 11:41 Dose: Not Given Meclizine HCl (Antivert -) 25 mg PO TID PRN PRN Reason: DIZZINESS Last Admin: 03/12/17 10:17 Dose: 25 mg Metoprolol Succinate (Toprol Xl -) 12.5 mg PO DAILY [facility] Last Admin: 03/15/17 09:41 Dose: 12.5 mg Ondansetron HCl (Zofran Injection) 4 mg IVPB Q8H PRN PRN Reason: NAUSEA Oxycodone HCl (Roxicodone -) 10 mg PO Q4H PRN PRN Reason: PAIN Last Admin: 03/15/17 08:14 Dose: 10 mg Pantoprazole Sodium (Protonix -) 40 mg PO DAILY [facility] Last Admin: 03/15/17 09:42 Dose: 40 mg Polyethylene Glycol (Miralax (For Daily Use) -) 17 gm PO DAILY [facility] Last Admin: 03/15/17 10:00 Dose: 17 gm Sevelamer Carbonate (Renvela -) 800 mg PO TIDCM [facility] Last Admin: 03/15/17 11:48 Dose: 800 mg Torsemide (Demadex -) 40 mg PO DAILY [facility] Last Admin: 03/15/17 09:42 Dose: 40 mg Vitamin E (Vitamin E -) 400 unit PO DAILY [facility] Last Admin: 03/15/17 09:52 Dose: Not Given - Objective Vital Signs: Vital Signs Temperature 98.7 F 03/15/17 10:00 Pulse Rate 97 H 03/15/17 10:00 Respiratory Rate 17 03/15/17 10:00 Blood Pressure 152/68 03/15/17 10:00 O2 Sat by Pulse Oximetry (%) 95 03/15/17 09:00 Constitutional: Yes: No Distress, Calm Cardiovascular: Yes: Regular Rate and Rhythm Respiratory: Yes: Regular, Poor Air Entry Gastrointestinal: Yes: Normal Bowel Sounds, Soft Musculoskeletal: Yes: WNL Extremities: Yes: WNL Neurological: Yes: Alert, Oriented Psychiatric: Yes: Alert, Oriented Labs: CBC, BMP 03/15/17 08:20 03/15/17 08:20 INR, PTT INR 1.24 (0.82-1.09) H 03/06/17 06:30 Assessment/Plan sepsis septic left wrist joint gm positive bacteremia fever tenderness plan conitnue abx close watch for any other spots patients wrist developing a focal swelling red spots on the inner side of the thigh i am going to order a stat blood culture i am worried about those spots there are chances of those being mets--though still on the lower side still with his condition it worries me i think patient should get a CHEN at the earliest whenever we can
[2017-03-15] MEDS: NITROGLYCERIN SUBLINGUAL 1/150 0.4 MG TAB SL ONE ×2 (14:30→18:23)
[2017-03-15] MEDS: NITROGLYCERIN 2% OINTMENT - 1GM PACKET TD ONE (14:35)
--- NOTE | 2017-03-15 14:40 | RAPID ---
Addendum entered and electronically signed by Justin Perez RES 03/15/17 15:09 : Was paged by nurse that the patient continues to be diaphoretic and uncomfortable. Blood pressure remains elevated. Ordered nitro drip. DIsscussed with the nurse and the nursing heel room supervisor the urgency and importance of staring the nitro drip. Original Note: <Justin Perez - Last Filed: 03/15/17 14:34> Physical Examination Vital Signs: Vital Signs Temperature 98.7 F 03/15/17 10:00 Pulse Rate 97 H 03/15/17 10:00 Respiratory Rate 17 03/15/17 10:00 Blood Pressure 152/68 03/15/17 10:00 O2 Sat by Pulse Oximetry (%) 95 03/15/17 09:00 Findings/Remarks: called for rapid response for a 71 year old male who because short of breath and tachypnic while in the bathroom. He was saturating 93% on NRB, but still endorsed shortness of breath. He was transferred to the bed to be assessed. EKG , CXR, troponins, sublingual and transdermal nitro ordered. Bedside dialysis to be performed. Constitutional: Yes: Well Nourished, Moderate Distress Cardiovascular: Yes: Other (distant heart sounds) Respiratory: Yes: Rales, Tachypnea Labs: CBC, BMP 03/15/17 08:20 03/15/17 08:20 Rapid Response - Rapid Response Assessment: This most likely is secondary to fluid overload. Recommendations/Interventions: EKG, CXR, Troponins ordered stat. Lasix IV 80mg ordered. Sublingual and transdermal nitroglycerin ordered. Bedside dialysis to be performed. <Bella Brennan - Last Filed: 03/15/17 19:10> Physical Examination Vital Signs: Vital Signs Temperature 99 F 03/15/17 18:00 Pulse Rate 83 03/15/17 18:37 Respiratory Rate 18 03/15/17 18:37 Blood Pressure 109/70 03/15/17 18:37 O2 Sat by Pulse Oximetry (%) 94 L 03/15/17 16:00 Labs: CBC, BMP 03/15/17 16:40 03/15/17 16:40 Rapid Response - Rapid Response Assessment: Responded to Rapid Response request around 2pm 71 year old male on HD that developed onset of respiratory distress and diaphoresis Initial assessment revealed BP of 192/112, dyspnea and B/L rales on lung exam as well as LE edema STAT orders were placed for EKG CXR Nitro SL Lasix IV 80 O2 emergent dialysis requested Follow up call from RN reporting that EKG was done was received around 2:45 PM reporting that BP remains elevated to 110 disatolic and 186 systolic Patient was re evaluated and remained in distress , did not respond to lasix, c/ o diaphoresis Nitro drip was ordered Discussed with nursing heel room supervisor regarding escalating care/transfer to unit or telemetry however initiating treatment with nitro immediately and stabilizing patient prior to transfer Code 99 was called at 3:26 please refer to code documentation
[2017-03-15] MEDS ORDERED: NITROGLYCERIN 25MG/D5W 250ML 250 ML IVPB SCH (15:00)
--- NOTE | 2017-03-15 15:11 | PN ---
Progress Note, Physician Chief Complaint: Renal Follow up: Just walked into the room to see that the patient had an episode of sudden shortness of breath, sudden o2 de-saturation and feeling very uncomfortable. Reportedly he was in the bath room when this happened. On review of the student services dean, there is no significant bradycardia. ID follow up noted. The patient is now in the bed, and c/ o shortness of breath. No chest pains reported. Massive anasarca + - Current Medication List Current Medications: Active Medications Acetaminophen (Tylenol -) 650 mg PO Q4H PRN PRN Reason: PAIN Last Admin: 03/15/17 13:47 Dose: 650 mg Allopurinol (Zyloprim -) 100 mg PO DAILY [facility] Last Admin: 03/15/17 09:41 Dose: 100 mg Atorvastatin Calcium (Lipitor -) 40 mg PO HS [facility] Last Admin: 03/14/17 21:52 Dose: 40 mg Cholecalciferol (Vitamin D3 -) 2,000 unit PO DAILY [facility] Last Admin: 03/15/17 09:41 Dose: 2,000 unit Ezetimibe (Zetia -) 10 mg PO DAILY [facility] Last Admin: 03/15/17 09:42 Dose: 10 mg Hydrocortisone (Hytone 1% Cream -) 1 applic TP BID PRN PRN Reason: FOR ITCHING Last Admin: 03/12/17 11:48 Dose: 1 applic IV Flush (Picc Line Flush) 8 ml IVPUSH PRN PRN PRN Reason: Protocol Nafcillin Sodium 2 gm/ (Dextrose) 100 mls @ 100 mls/hr IVPB Q4H-IV [facility] Last Admin: 03/15/17 10:00 Dose: 100 mls/hr Nitroglycerin/Dextrose (Nitroglycerin 25mg/D5w 250ml) 250 mls @ 6 mls/hr IVPB TITR [facility] PRN Reason: 10 MCG/MIN Insulin Aspart (Novolog Vial Sliding Scale -) 1 vial SQ TIDAC [facility] PRN Reason: Protocol Last Admin: 03/15/17 11:41 Dose: Not Given Meclizine HCl (Antivert -) 25 mg PO TID PRN PRN Reason: DIZZINESS Last Admin: 03/12/17 10:17 Dose: 25 mg Metoprolol Succinate (Toprol Xl -) 12.5 mg PO DAILY [facility] Last Admin: 03/15/17 09:41 Dose: 12.5 mg Ondansetron HCl (Zofran Injection) 4 mg IVPB Q8H PRN PRN Reason: NAUSEA Oxycodone HCl (Roxicodone -) 10 mg PO Q4H PRN PRN Reason: PAIN Last Admin: 03/15/17 13:46 Dose: 10 mg Pantoprazole Sodium (Protonix -) 40 mg PO DAILY [facility] Last Admin: 03/15/17 09:42 Dose: 40 mg Polyethylene Glycol (Miralax (For Daily Use) -) 17 gm PO DAILY [facility] Last Admin: 03/15/17 10:00 Dose: 17 gm Sevelamer Carbonate (Renvela -) 800 mg PO TIDCM [facility] Last Admin: 03/15/17 11:48 Dose: 800 mg Torsemide (Demadex -) 40 mg PO DAILY [facility] Last Admin: 03/15/17 09:42 Dose: 40 mg Vitamin E (Vitamin E -) 400 unit PO DAILY [facility] Last Admin: 03/15/17 09:52 Dose: Not Given - Objective Vital Signs: Vital Signs Temperature 98.7 F 03/15/17 10:00 Pulse Rate 97 H 03/15/17 10:00 Respiratory Rate 17 03/15/17 10:00 Blood Pressure 152/68 03/15/17 10:00 O2 Sat by Pulse Oximetry (%) 95 03/15/17 09:00 Constitutional: Yes: Anxious, [place], Moderate Distress HENT: Yes: Atraumatic Neck: Yes: Trachea Midline Cardiovascular: Yes: S1, S2 Respiratory: Yes: CTA Bilaterally Gastrointestinal: Yes: Normal Bowel Sounds, Abdomen, Obese Genitourinary: Yes: Bladder Distention, Incontinence. No: CVA Tenderness - Left , CVA Tenderness - Right Edema: Yes Edema: LLE: 3+, RLE: 3+ Neurological: Yes: Alert Psychiatric: Yes: Alert, Oriented Labs: CBC, BMP 03/15/17 08:20 03/15/17 08:20 INR, PTT INR 1.24 (0.82-1.09) H 03/06/17 06:30 Problem List - Problems (1) Acute renal failure (ARF) Code(s): N17.9 - ACUTE KIDNEY FAILURE, UNSPECIFIED (2) Anemia Code(s): D64.9 - ANEMIA, UNSPECIFIED (3) CAD (coronary artery disease) Code(s): I25.10 - ATHSCL HEART DISEASE OF [place] CORONARY ARTERY W/O ANG PCTRS (4) Cellulitis Code(s): L03.90 - CELLULITIS, UNSPECIFIED Qualifiers: Site of cellulitis: extremity Site of cellulitis of extremity: upper extremity Laterality: left Qualified Code(s): L03.114 - Cellulitis of left upper limb (5) Gout Code(s): M10.9 - GOUT, UNSPECIFIED (6) Hypertension Code(s): I10 - ESSENTIAL (PRIMARY) HYPERTENSION (7) Leukocytosis Code(s): D72.829 - ELEVATED WHITE BLOOD CELL COUNT, UNSPECIFIED (8) MSSA (methicillin susceptible Staphylococcus aureus) infection Code(s): A49.01 - METHICILLIN SUSCEP STAPH INFECTION, UNSP SITE Assessment/Plan 71 y/o male with Acute Kidney Injury, massive fluid overlad, MSSA Bacteremia and h/o Gout. The acute shortness of breath and O2 de-saturation are possibly primary Cardiac , ? sepsis related. Hypertension, most likely due to Adrenergic effects in this volume overloaded patient. The patient has new skin lesions on his thighs, and is commented by the ID Quantitative Analyst Developer, need to r/o metastatic embolic/ infectious process. Will transfer the patient to the ICU. Will do dialysis with UF in the ICU Rivka Holly MD
[2017-03-15 16:10] LABS: ARTERIAL BLD GAS O2 SATURATION 98.1 % (90-98.9)
[2017-03-15 16:11] LABS: ALLENS TEST POSITIVE; ART PUNCT SITE RIGHT RADIAL; ARTERIAL BLOOD GAS HCO3 15.7 meq/L (22-26); LPM/O2% 100%; MECH. VENT. Y; PT. ON O2? YES; TYPE OF O2 VENT; VENT RATE 14; VT/PRESS 500
[2017-03-15] MEDS ORDERED: HEPARIN NA (PORCINE) 5,000 UNITS/ML 1ML VIAL IVPUSH PRN ×2 (16:14)
[2017-03-15] MEDS ORDERED: NOREPINEPHRINE BITARTRATE 4 MG/4 ML ML IV ONE ×2 (16:24→21:35)
[2017-03-15] MEDS ORDERED: SODIUM BICARBONATE 8.4% - 50 ML ONE (16:25)
[2017-03-15] MEDS: FUROSEMIDE 40 MG/4 ML INJECTABLE VIAL IVPUSH ONE ×2 (16:35→18:23)
[2017-03-15] MEDS ORDERED: PROPOFOL 100 ML ONE (16:39)
--- NOTE | 2017-03-15 16:45 | PN ---
Progress Note (short form) - Note Progress Note: Addendum: The patient transferred to the ICU. Had Cardio-respiratory arrest on the floor. Resuscitated, and brought down to the ICU. Now intubated, vent supported. ABG shows severe Acidemia (pH 7.104) , with combined Metabolic Acidosis ( HCO 15.7), and Respiratory Acidosis (pCO2 52.3) . Taylor catheter placed, with minimal urine output. HD started with UF goal set initially at 2 Kg. Hypotension was noted ( Syst BP 87 mm HG) and Levophed initiated. The patient became agitated and started fighting the Vent and he was started on Propofol. Will transfuse 2 units of PRBC on dialysis. The dialysis orders written and reviewed with the dialysis Nurse. Problem List - Problems (1) Acute renal failure (ARF) Code(s): N17.9 - ACUTE KIDNEY FAILURE, UNSPECIFIED (2) Anemia Code(s): D64.9 - ANEMIA, UNSPECIFIED (3) CAD (coronary artery disease) Code(s): I25.10 - ATHSCL HEART DISEASE OF [place] CORONARY ARTERY W/O ANG PCTRS (4) Cellulitis Code(s): L03.90 - CELLULITIS, UNSPECIFIED Qualifiers: Site of cellulitis: extremity Site of cellulitis of extremity: upper extremity Laterality: left Qualified Code(s): L03.114 - Cellulitis of left upper limb (5) Gout Code(s): M10.9 - GOUT, UNSPECIFIED (6) Hypertension Code(s): I10 - ESSENTIAL (PRIMARY) HYPERTENSION (7) Leukocytosis Code(s): D72.829 - ELEVATED WHITE BLOOD CELL COUNT, UNSPECIFIED (8) MSSA (methicillin susceptible Staphylococcus aureus) infection Code(s): A49.01 - METHICILLIN SUSCEP STAPH INFECTION, UNSP SITE
[2017-03-15] MEDS ORDERED: LORazepam 2 MG/ML SDV VIAL ONE (16:46)
[2017-03-15 16:51] LABS: BASOPHIL 1.9 % (0-2.0); EOSINOPHIL 4.5 % (0-4.5); MCH 30.8 pg (25.7-33.7); MEAN CELL VOLUME 93.6 fl (80-96); MEAN PLT VOLUME 7.4 fl (7.5-11.1); NEUTROPHILS 71.8 % (42.8-82.8); PLATELET COUNT 445 K/MM3 (134-434); RDW 16.4 % (11.9-15.9); WHITE BLOOD COUNT 14.1 K/mm3 (4.0-10.0)
--- NOTE | 2017-03-15 17:03 | PN ---
Progress Note (short form) - Note Progress Note: Chief Complaint: Events noted, notes reviewed, called urgently to evaluate unresponsiveness, upon my arrival to the hospital/unit patient was in cardiac arrest with PEA (pulse-less Electrical Activity), resuscitation supervised with rastafari of rhythm and pulse, transferred urgently to the ICU, HD initiated History of Present Illness: Seen and examined in the ICU (critical care time about 2-2:30 hours). Full consult dictated Echocardiography dated 02/26/2017 was technically sub-optimal study which revealed Normal LV and RV size and function and no significant valvular pathology - Current Medication List Current Medications Acetaminophen (Tylenol -) 650 mg PO Q4H PRN PRN Reason: PAIN Last Admin: 03/15/17 13:47 Dose: 650 mg Allopurinol (Zyloprim -) 100 mg PO DAILY [facility] Last Admin: 03/15/17 09:41 Dose: 100 mg Atorvastatin Calcium (Lipitor -) 40 mg PO HS [facility] Last Admin: 03/14/17 21:52 Dose: 40 mg Cholecalciferol (Vitamin D3 -) 2,000 unit PO DAILY [facility] Last Admin: 03/15/17 09:41 Dose: 2,000 unit Ezetimibe (Zetia -) 10 mg PO DAILY [facility] Last Admin: 03/15/17 09:42 Dose: 10 mg Heparin Sodium (Porcine) (Heparin -) 1,000 unit IVPUSH PRN PRN PRN Reason: Heparin Heparin Sodium (Porcine) (Heparin -) 5,000 unit IVPUSH PRN PRN PRN Reason: Heparin Hydrocortisone (Hytone 1% Cream -) 1 applic TP BID PRN PRN Reason: FOR ITCHING Last Admin: 03/12/17 11:48 Dose: 1 applic IV Flush (Picc Line Flush) 8 ml IVPUSH PRN PRN PRN Reason: Protocol Nafcillin Sodium 2 gm/ (Dextrose) 100 mls @ 100 mls/hr IVPB Q4H-IV [facility] Last Admin: 03/15/17 10:00 Dose: 100 mls/hr Nitroglycerin/Dextrose (Nitroglycerin 25mg/D5w 250ml) 250 mls @ 6 mls/hr IVPB TITR [facility] PRN Reason: 10 MCG/MIN Heparin Sodium/Dextrose (Heparin Infusion -) 500 mls @ 20 mls/hr IVPB TITR [facility] ; 1,000 UNITS/HR PRN Reason: Protocol Insulin Aspart (Novolog Vial Sliding Scale -) 1 vial SQ TIDAC [facility] PRN Reason: Protocol Last Admin: 03/15/17 11:41 Dose: Not Given Meclizine HCl (Antivert -) 25 mg PO TID PRN PRN Reason: DIZZINESS Last Admin: 03/12/17 10:17 Dose: 25 mg Metoprolol Succinate (Toprol Xl -) 12.5 mg PO DAILY [facility] Last Admin: 03/15/17 09:41 Dose: 12.5 mg Ondansetron HCl (Zofran Injection) 4 mg IVPB Q8H PRN PRN Reason: NAUSEA Oxycodone HCl (Roxicodone -) 10 mg PO Q4H PRN PRN Reason: PAIN Last Admin: 03/15/17 13:46 Dose: 10 mg Pantoprazole Sodium (Protonix -) 40 mg PO DAILY [facility] Last Admin: 03/15/17 09:42 Dose: 40 mg Polyethylene Glycol (Miralax (For Daily Use) -) 17 gm PO DAILY [facility] Last Admin: 03/15/17 10:00 Dose: 17 gm Sevelamer Carbonate (Renvela -) 800 mg PO TIDCM [facility] Last Admin: 03/15/17 11:48 Dose: 800 mg Torsemide (Demadex -) 40 mg PO DAILY [facility] Last Admin: 03/15/17 09:42 Dose: 40 mg Vitamin E (Vitamin E -) 400 unit PO DAILY [facility] Last Admin: 03/15/17 09:52 Dose: Not Given Review of Systems Unable to obtain - Objective Vital Signs: Last Vital Signs Temp Pulse Resp BP Pulse Ox 98.7 F 108 H 38 H 183/86 95 03/15/17 10:00 03/15/17 15:10 03/15/17 15:10 03/15/17 15:10 03/15/17 09:00 Intake & Output 03/12/17 03/13/17 03/14/17 03/15/17 23:59 23:59 23:59 23:59 Intake Total 1810 2230 1950 100 Output Total 225 250 850 Balance 1585 1980 1100 100 Weight 267 lb 266 lb 12.8 oz 263 lb 6 oz 261 lb 9.6 oz Constitutional: Intubated, Focal Twitching Noted Neck: Supple Negative JVD Cardiovascular: S1 S2 Regular Rate and Rhythm, Grade 1-2/6 Systolic Ejection Murmur Respiratory: Diminished at the Bases Bilaterally Gastrointestinal: Protuberant, Hypoactive Bowel Sounds Ext: 2+ Edema Labs: CBC, BMP 03/15/17 16:40 03/15/17 16:40 Troponin, BNP 03/15/17 16:40 Troponin I 0.73 H* D Assessment/Plan ASSESSMENT: 1. Cardiopulmonary arrest with PEA (pulse-less Electrical Activity) post resuscitation, respiratory failure/intubated and sedated 2. Abnormal EKG, new onset right axis deviation with RSCD (unclear underlying atrial rhythm), differential includes PTE, myocardial infarction 3. CAD post NC/CABG angina pectoris 4. LV diastolic/systolic dysfunction with class I-II NYHA classification LV failure, de-compensated 5. Acute renal failure on HD 6. Anemia, recent GI bleed related to peptic ulcer disease 7. HTN 8. DM 9. Hypercholesterolemia 10. Recent sepsis syndrome with septic shock PLAN: 1. Serial EKG's and cardiac biochemical markers to exclude ACS/infarct 2. Chest CTA once hemodynamically stabilized for evaluation PTE 3. Recommend initiating IV Heparin with caution pending evaluation and confirmation of above pathologies (recent GI bleed), ideally should be on ASA+/ - Plavix but to be deferred related to the recent GI bleed 4. HD as per the renal service 5. Pressors, Levophed as needed to maintain MAP > 65, and assist with HD fluid mobilization 6. Transfusion to maintain Hg equal or > 8.0 7. B-Blockers hemodynamics permitting 8. Repeat echocardiography to evaluate LV function, possible CHEN if images are sub-optimal Condition critical Denny Mahoney M.D.
[2017-03-15 17:05] LABS: INR 1.67 (0.82-1.09); PROTHROMBIN TIME (PATIENT) 18.6 SEC (9.98-11.88)
[2017-03-15] MEDS ORDERED: SODIUM BICARBONATE 4.2% 5 MEQ/10 ML DISP.SYRIN IVPUSH ONE (17:13)
[2017-03-15 17:23] LABS: ALBUMIN 1.3 g/dl (3.4-5.0); ALK PHOS 76 U/L (45-117); ANION GAP 21 (8-16); CALCIUM 7.8 mg/dL (8.5-10.1); CO2 24 mmol/L (21-32); CPK 249 IU/L (39-308); CREATININE 7.2 mg/dL (0.7-1.3); GLUCOSE,RANDOM 195 mg/dL (74-106); SGOT/AST 115 U/L (15-37); SGPT/ALT 54 U/L (12-78); TOT PROT 5.1 g/dl (6.4-8.2)
[2017-03-15] MEDS: NOREPINEPHRINE BITARTRATE 8,000 MCG in DEXTROSE 5%-WATER - 492 ML IV SCH (18:20)
[2017-03-15] MEDS: HEPARIN INFUSION - 500 ML IVPB SCH (18:34)
--- NOTE | 2017-03-15 18:40 | PN ---
Progress Note (short form) - Note Progress Note: PULMONARY/CCM Pt seen and examined in the ICU. Events noted, s/p PEA arrest, now intubated, sedated on levophed gtt on HD. Last Vital Signs Temp Pulse Resp BP Pulse Ox 99 F 78 13 78/47 94 L 03/15/17 18:00 03/15/17 18:20 03/15/17 18:10 03/15/17 18:20 03/15/17 16:00 Intake & Output 03/12/17 03/13/17 03/14/17 03/15/17 23:59 23:59 23:59 23:59 Intake Total 1810 2230 1950 525 Output Total 225 250 850 200 Balance 1585 1980 1100 325 Weight 267 lb 266 lb 12.8 oz 263 lb 6 oz 261 lb 9.6 oz Gen: intubated, sedated Heart: RRR Lung: scattered rhonchi Abd: soft, nontender Ext: + edema CBC, BMP 03/15/17 16:40 03/15/17 16:40 Active Medications Acetaminophen (Tylenol -) 650 mg PO Q4H PRN PRN Reason: PAIN Last Admin: 03/15/17 13:47 Dose: 650 mg Allopurinol (Zyloprim -) 100 mg PO DAILY [facility] Last Admin: 03/15/17 09:41 Dose: 100 mg Atorvastatin Calcium (Lipitor -) 40 mg PO HS [facility] Last Admin: 03/14/17 21:52 Dose: 40 mg Cholecalciferol (Vitamin D3 -) 2,000 unit PO DAILY [facility] Last Admin: 03/15/17 09:41 Dose: 2,000 unit Heparin Sodium (Porcine) (Heparin -) 1,000 unit IVPUSH PRN PRN PRN Reason: Heparin Heparin Sodium (Porcine) (Heparin -) 5,000 unit IVPUSH PRN PRN PRN Reason: Heparin Hydrocortisone (Hytone 1% Cream -) 1 applic TP BID PRN PRN Reason: FOR ITCHING Last Admin: 03/12/17 11:48 Dose: 1 applic IV Flush (Picc Line Flush) 8 ml IVPUSH PRN PRN PRN Reason: Protocol Nafcillin Sodium 2 gm/ (Dextrose) 100 mls @ 100 mls/hr IVPB Q4H-IV [facility] Last Admin: 03/15/17 18:20 Dose: 100 mls/hr Heparin Sodium/Dextrose (Heparin Infusion -) 500 mls @ 20 mls/hr IVPB TITR [facility] ; 1,000 UNITS/HR PRN Reason: Protocol Last Admin: 03/15/17 18:34 Dose: 20 mls/hr Norepinephrine Bitartrate 8, (000 mcg/ Dextrose) 500 mls @ 13.34 mls/hr IV ASDIR [facility]; 0.03 MCG/KG/MIN PRN Reason: Protocol Last Admin: 03/15/17 18:20 Dose: 37.5 mls/hr Insulin Aspart (Novolog Vial Sliding Scale -) 1 vial SQ TIDAC [facility] PRN Reason: Protocol Last Admin: 03/15/17 18:20 Dose: Not Given Meclizine HCl (Antivert -) 25 mg PO TID PRN PRN Reason: DIZZINESS Last Admin: 03/12/17 10:17 Dose: 25 mg Ondansetron HCl (Zofran Injection) 4 mg IVPB Q8H PRN PRN Reason: NAUSEA Oxycodone HCl (Roxicodone -) 10 mg PO Q4H PRN PRN Reason: PAIN Last Admin: 03/15/17 13:46 Dose: 10 mg Pantoprazole Sodium (Protonix -) 40 mg PO DAILY [facility] Last Admin: 03/15/17 09:42 Dose: 40 mg Polyethylene Glycol (Miralax (For Daily Use) -) 17 gm PO DAILY [facility] Last Admin: 03/15/17 10:00 Dose: 17 gm Sevelamer Carbonate (Renvela -) 800 mg PO TIDCM [facility] Last Admin: 03/15/17 18:20 Dose: Not Given Vitamin E (Vitamin E -) 400 unit PO DAILY [facility] Last Admin: 03/15/17 09:52 Dose: Not Given A/P s/p Cardiopulmonary Arrest Metabolic/Lactic Acidosis Acute Kidney Injury requiring HD +Troponins/CAD/r/o ACS/NSTEMI Acute on Chronic LV Systolic/Diastolic Heart Failure Staph Bacteremia HTN DM Recent GI Bleed - placed central line - levophed gtt to keep MAP >65 - HD per renal - post HD ABG - heparin gtt - monitor H/H - echocardiogram - f/u repeat cultures - continue antibiotics per ID - once hemodynamically stable, lighten sedation to assess mental status - DVT/GI prophylaxis - prognosis guarded - ICU monitoring - discussed with at bedside critical care time spent in reviewing chart, evaluating patient and formulating plan 35 min
--- NOTE | 2017-03-15 18:47 | PROC ---
Central Line Insertion Indication: Vasopressor Risks and Benefits Explained: Yes Consent on Chart: Yes Central Line: Triple Lumen Catheter Anesthesia: 1% Lidocaine Sterile Technique: Yes Ultrasound Guided Assistance: Yes Position: Left Internal Jugular Post Insertion: Yes: Chest X-Ray Ordered Sterile Dressing Applied: Yes
--- NOTE | 2017-03-15 18:57 | CONS ---
DATE OF CONSULTATION: 03/15/2017 CONSULTATION REQUESTED BY: Rivka Holly MD CRITICAL CARE CONSULTATION: Total spent with patient: Greater than 2 hours. I was called to evaluate the patient by Dr. Rivka Holly for unresponsiveness upon arrival to the hospital. The nursing unit code 99 was called, and patient was noted to have cardiopulmonary arrest and he was noted to be in pulseless electrical activity, being resuscitated. Resuscitation requiring chest compression, administration of epinephrine, and subsequently synchronized cardioversion for wide complex tachycardia and administration of amiodarone. Subsequent conversion to narrow complex rhythm with stable blood pressure and transferred to the intensive care unit. Patient, in addition, was intubated by Anesthesia. Patient currently is in the intensive care unit, intubated and sedated. A 71-year-old male with known history of coronary artery disease, status post myocardial infarction, status post reoperative coronary artery bypass grafting, angina pectoris, diastolic/systolic left ventricular dysfunction, with chronic class 1 [place] [employer] classification left ventricular failure, hypertensive cardiovascular disease, diabetes mellitus, hypercholesterolemia, history of adult respiratory distress syndrome, post initial coronary artery bypass graft surgery, fatty liver, chronic kidney disease, who presented to [facility] with left wrist cellulitis, complicated subsequently by sepsis syndrome and acute on chronic renal failure requiring initiation of hemodialysis. Complicated hospital course, and apparently today patient became unresponsive, unclear what rhythm was, and subsequently he improved. The patient was noted to be in respiratory distress and hypertensive, at which point IV nitroglycerin initiation was recommended, and upon moving the patient to the intensive care unit, patient had cardiac arrest, requiring the above-noted resuscitation. PAST MEDICAL HISTORY: Coronary artery disease, status post reoperative coronary artery bypass grafting, angina pectoris, systolic/diastolic left ventricular dysfunction with chronic class 1 [place] [employer] classification left ventricular failure, hypertensive cardiovascular disease, diabetes mellitus, hypercholesterolemia, history of adult respiratory distress syndrome, post initial coronary artery bypass graft surgery, fatty liver, cholelithiasis, chronic kidney disease, hyperuricemia/gout. SOCIAL HISTORY: Prior history of smoking. FAMILY HISTORY: Positive coronary artery disease. ALLERGIES: None reported. MEDICAL THERAPY AT HOME: Aldactone 50 mg once a day, Lipitor 40 mg once a day, Cozaar 50 mg twice a day, meclizine 25 mg 3 times a day as needed for benign positional vertigo, metformin 1000 mg twice a day, Toprol XL 25 mg once a day, vitamin D 2000 units once a day, Zetia 10 mg once a day, allopurinol 300 mg once a day, vitamin D 400 units once a day. REVIEW OF SYSTEMS: Not obtainable. Patient intubated and sedated. PHYSICAL EXAMINATION: Vital Signs: Blood pressure is 183/86. Pulse rate 108, regular. Head and Neck: Pupils are sluggish but reactive to light and accommodation. Extraocular muscles cannot be evaluated. Anicteric sclerae. Negative JVD. No bruit appreciated. Chest: Diminished breath sounds at the bases bilaterally. Cardiovascular: S1, S2 regular. Grade 1 to 2/6 systolic ejection murmur. No clicks or gallops. Abdomen: Protuberant. Hypoactive bowel sound. Extremities: Extensive edema. Diminished distal pulses. EKG: Pulse resuscitation revealed unclear underlying atrial rhythm with right axis deviation, right-sided conduction delay, and ST-segment and T-wave abnormality. Performed at 1605. Repeat EKG performed at 1735 revealed sinus rhythm with prolonged QTc interval and nonspecific T-wave abnormality. CBC revealed white cell count 14.1, hemoglobin 7.4, platelet count 445. Basic metabolic profile: Sodium 135, potassium 3.9, BUN 57, creatinine 7.2, glucose 195. Troponin 0.73. ASSESSMENT: 1. Cardiopulmonary arrest with pulseless electrical activity, post resuscitation, respiratory failure, intubated and sedated. 2. Abnormal electrocardiogram, new-onset right axis deviation with right-sided conduction delay, unclear underlying atrial rhythm. Differential includes pulmonary thromboembolism versus acute myocardial infarction. 3. Coronary artery disease, post myocardial infarction, post coronary artery bypass grafting, angina pectoris. 4. Left ventricular diastolic/systolic dysfunction with class 1 to 2 [place] [employer] classification left ventricular failure, decompensated. 5. Acute renal failure, on hemodialysis. 6. Anemia with recent gastrointestinal bleed related to peptic ulcer disease. 7. Hypertension. 8. Diabetes mellitus. 9. Hypercholesterolemia. 10. Recent sepsis syndrome with septic shock. RECOMMENDATION: 1. Serial EKGs and cardiac biochemical markers to exclude acute coronary syndrome/infarct. 2. Chest CTA, once hemodynamically stabilized, to evaluate possibility of pulmonary thromboembolism. 3. Recommend initiation of IV heparin with caution, in view of the above-noted history of GI bleed, pending evaluation and confirmation of the above-noted pathology. 4. Hemodialysis as per the renal service. 5. Pressors Levophed as needed to maintain mean arterial pressure greater than 65 and assist with hemodialysis fluid mobilization. 6. Transfusion to maintain hemoglobin equal or greater than 8.0. 7. Beta blockers, hemodynamics permitting. 8. Repeat echocardiography to evaluate left ventricular systolic function, possible transesophageal echocardiography if images are suboptimal. 9. Ideally, patient should be on aspirin plus/minus Plavix but to be deferred, related to the above-noted recent gastrointestinal bleed. CONDITION: Critical. Discussed in detail with the patient's , who was at the bedside. Thank you for the kind referral. JARED KAUR M.D. DEONNA/[id number]
[2017-03-15] MEDS: ACETAMINOPHEN 1000 MG/100 ML VIAL (NON FORMULARY) IVPB PRN (20:45)
[2017-03-15 21:30] LABS: ART PUNCT SITE ARTERIAL LINE; ARTERIAL BLD GAS O2 SATURATION 98.9 % (90-98.9); ARTERIAL BLOOD GAS BASE EXCESS -1.3 meq/l (-2-2); ARTERIAL BLOOD GAS HCO3 23.1 meq/L (22-26); ARTERIAL BLOOD GAS pH 7.38 (7.35-7.45); LPM/O2% 60%; MECH. VENT. y; PT. ON O2? yes; TYPE OF O2 vent; VENT RATE 16; VT/PRESS 600
[2017-03-15 21:32] LABS: VENOUS BLOOD GAS HCO3 24.9 meq/L (19-25); VENOUS PH 7.34 (7.32-7.42)
--- NOTE | 2017-03-15 21:44 | PROC ---
Procedure Note Procedure: Arterial Line: Consent obtained from . R wrist Prepped and drapped in a sterile fashion Local anesthesia with 1% lidocaine. Using modified seldinger technique a 20ga 10cm cath was advanced over a wire. There was bright red blood return. Arterial wave form confirmed placement Line secured in place. aDr Hill [facility] [id number]
[2017-03-15] MEDS ORDERED: MIDAZOLAM HCL 2 MG/2 ML SINGLE DOSE VIAL IVPUSH PRN (21:46)
[2017-03-15] MEDS ORDERED: MIDAZOLAM HCL 2 MG/2 ML SINGLE DOSE VIAL ONE (21:52)
[2017-03-15 21:56] LABS: INR 1.96 (0.82-1.09); PROTHROMBIN TIME (PATIENT) 21.9 SEC (9.98-11.88)
[2017-03-15] MEDS: ATORVASTATIN CA 40 MG TABLET (FP) PO SCH (21:58)
[2017-03-16] MEDS: NAFCILLIN - 2 GM in DEXTROSE 5%-WATER 100 ML IVPB SCH ×5 (01:18→19:13)
[2017-03-16 02:09] LABS: URINE APPEARANCE CLOUDY; URINE BILIRUBIN NEGATIVE (NEGATIVE); URINE BLOOD 2+ (NEGATIVE); URINE GLUCOSE (UA) 1+ (NEGATIVE); URINE KETONE NEGATIVE (NEGATIVE); URINE LEUK ESTERASE NEGATIVE (NEGATIVE); URINE NITRITE NEGATIVE (NEGATIVE); URINE UROBILINOGEN NEGATIVE mg/dL (0.2-1.0)
[2017-03-16 02:16] LABS: URINE COLOR YELLOW; URINE PROTEIN 3+ (NEGATIVE)
[2017-03-16 02:19] LABS: URINE HYALINE CAST 1 /lpf; URINE MUCUS RARE; URINE RBC 36 /hpf (0-3); URINE WBC 5 /hpf (3-5)
[2017-03-16] MEDS: ACETAMINOPHEN 1000 MG/100 ML VIAL (NON FORMULARY) IVPB PRN ×2 (03:00→11:46)
[2017-03-16 06:08] LABS: BASOPHIL 0.4 % (0-2.0); EOSINOPHIL 0.9 % (0-4.5); MCH 30.2 pg (25.7-33.7); MCHC 34.1 g/dl (32.0-35.9); MEAN CELL VOLUME 88.5 fl (80-96); MEAN PLT VOLUME 7.5 fl (7.5-11.1); NEUTROPHILS 82.2 % (42.8-82.8); PLATELET COUNT 307 K/MM3 (134-434); RDW 16.9 % (11.9-15.9); WHITE BLOOD COUNT 15.9 K/mm3 (4.0-10.0)
[2017-03-16 07:16] LABS: PHOSPHOROUS 5.5 mg/dL (2.5-4.9)
--- NOTE | 2017-03-16 07:16 | PN ---
Progress Note (short form) - Note Progress Note: Chief Complaint: Events noted, notes reviewed, awake and alert remains intubated , responding to commands, remains on pressors and IV Heparin, sinus rhythm is noted History of Present Illness: Seen and examined in the ICU. Events noted, notes reviewed, awake and alert remains intubated, responding to commands, remains on pressors and IV Heparin, sinus rhythm is noted Probably his clinical presentation was related to acute pulmonary edema/volume overload/respiratory acidosis in conjunction metabolic acidosis and eventual cardiac arrest/PEA (profound acidosis) Recommended repeat limited TTE today to evaluate LV function Echocardiography dated 02/26/2017 was technically sub-optimal study which revealed Normal LV and RV size and function and no significant valvular pathology - Current Medication List Current Medications Acetaminophen (Tylenol -) 650 mg PO Q4H PRN PRN Reason: PAIN Last Admin: 03/15/17 13:47 Dose: 650 mg Acetaminophen (Ofirmev Injection -) 1,000 mg IVPB Q6H PRN PRN Reason: FEVER OR PAIN Stop: 03/16/17 15:01 Last Admin: 03/16/17 03:00 Dose: 1,000 mg Allopurinol (Zyloprim -) 100 mg PO DAILY [facility] Last Admin: 03/15/17 09:41 Dose: 100 mg Atorvastatin Calcium (Lipitor -) 40 mg PO HS [facility] Last Admin: 03/15/17 21:58 Dose: Not Given Cholecalciferol (Vitamin D3 -) 2,000 unit PO DAILY [facility] Last Admin: 03/15/17 09:41 Dose: 2,000 unit Fentanyl (Sublimaze Injection -) 50 mcg IVPUSH Q30M PRN PRN Reason: AGITATION Stop: 03/16/17 20:16 Last Admin: 03/15/17 22:00 Dose: 50 mcg Heparin Sodium (Porcine) (Heparin -) 1,000 unit IVPUSH PRN PRN PRN Reason: Heparin Heparin Sodium (Porcine) (Heparin -) 5,000 unit IVPUSH PRN PRN PRN Reason: Heparin Hydrocortisone (Hytone 1% Cream -) 1 applic TP BID PRN PRN Reason: FOR ITCHING Last Admin: 03/12/17 11:48 Dose: 1 applic IV Flush (Picc Line Flush) 8 ml IVPUSH PRN PRN PRN Reason: Protocol Nafcillin Sodium 2 gm/ (Dextrose) 100 mls @ 100 mls/hr IVPB Q4H-IV [facility] Last Admin: 03/16/17 06:24 Dose: 100 mls/hr Heparin Sodium/Dextrose (Heparin Infusion -) 500 mls @ 20 mls/hr IVPB TITR PAULINA ; 1,000 UNITS/HR PRN Reason: Protocol Last Admin: 03/15/17 18:34 Dose: 20 mls/hr Norepinephrine Bitartrate 8, (000 mcg/ Dextrose) 500 mls @ 13.34 mls/hr IV ASDIR PAULINA; 0.03 MCG/KG/MIN PRN Reason: Protocol Last Admin: 03/15/17 18:20 Dose: 37.5 mls/hr Insulin Aspart (Novolog Vial Sliding Scale -) 1 vial SQ TIDAC PAULINA PRN Reason: Protocol Last Admin: 03/15/17 18:20 Dose: Not Given Midazolam HCl (Versed -) 2 mg IVPUSH Q2H PRN PRN Reason: SHORTNESS OF BREATH Last Admin: 03/15/17 22:01 Dose: 2 mg Ondansetron HCl (Zofran Injection) 4 mg IVPB Q8H PRN PRN Reason: NAUSEA Pantoprazole Sodium (Protonix -) 40 mg PO DAILY [facility] Last Admin: 03/15/17 09:42 Dose: 40 mg Polyethylene Glycol (Miralax (For Daily Use) -) 17 gm PO DAILY [facility] Last Admin: 03/15/17 10:00 Dose: 17 gm Sevelamer Carbonate (Renvela -) 800 mg PO TIDCM [facility] Last Admin: 03/15/17 18:20 Dose: Not Given Vitamin E (Vitamin E -) 400 unit PO DAILY [facility] Last Admin: 03/15/17 09:52 Dose: Not Given Review of Systems Unable to obtain - Objective Vital Signs: Last Vital Signs Temp Pulse Resp BP Pulse Ox 100.2 F H 76 20 98/54 100 03/16/17 03:00 03/16/17 03:00 03/16/17 05:50 03/16/17 03:00 03/15/17 22:45 Intake & Output 03/13/17 03/14/17 03/15/17 03/16/17 23:59 23:59 23:59 23:59 Intake Total 2230 1950 625 800 Output Total 250 850 200 25 Balance 1979 1100 425 775 Weight 266 lb 12.8 oz 263 lb 6 oz 261 lb 9.6 oz 254 lb 8 oz Constitutional: Intubated Neck: Supple Negative JVD Cardiovascular: S1 S2 Regular Rate and Rhythm, Grade 1-2/6 Systolic Ejection Murmur Respiratory: Diminished at the Bases Bilaterally Gastrointestinal: Protuberant, Normal Bowel Sounds Ext: 2+ Edema Labs: CBC, BMP 03/16/17 05:00 BMP from this AM pending ABG Results ABG pH 7.38 (7.35-7.45) D 03/15/17 21:20 ABG pCO2 at Pt Temp 40.0 mmHg (35-45) D 03/15/17 21:20 ABG pO2 at Pt Temp 133.0 mmHg (70-100) H D 03/15/17 21:20 ABG HCO3 23.1 meq/L (22-26) 03/15/17 21:20 ABG O2 Sat (Measured) 98.9 % (90-98.9) 03/15/17 21:20 ABG O2 Content 13.6 % vol (15-22) L 03/15/17 21:20 ABG Base Excess -1.3 meq/l (-2-2) 03/15/17 21:20 Assessment/Plan ASSESSMENT: 1. Cardiopulmonary arrest with PEA (pulse-less Electrical Activity) post resuscitation, respiratory failure/intubated 2. Abnormal EKG, new onset right axis deviation with RSCD (unclear underlying atrial rhythm), resolved most likely related profound metabolic acidosis, resolved acidosis 3. CAD post NM/CABG angina pectoris with evidence of demand ischemic injury in context of acute pulmonary edema 4. LV diastolic/systolic dysfunction with acute class III-IV NYHA classification LV failure, acute pulmonary edema 5. Acute renal failure on HD 6. Anemia, recent GI bleed related to peptic ulcer disease, post transfusion 7. HTN, hypotensive on pressors 8. DM 9. Hypercholesterolemia 10. Recent sepsis syndrome with septic shock PLAN: 1. Follow labs from this AM including BMP and CPK/Trop I 2. Chest CTA once hemodynamically stabilized for evaluation PTE 3. Continue IV Heparin with caution pending evaluation and confirmation of above pathologies (recent GI bleed), ideally should be on ASA+/- Plavix but to be deferred related to the recent GI bleed 4. HD as per the renal service 5. Pressors, Levophed as needed to maintain MAP > 65, and assist with HD fluid mobilization 6. Transfusion to maintain Hg equal or > 8.0 7. To initiate B-Blockers hemodynamics permitting 8. Repeat echocardiography to evaluate LV function, possible CHEN if images are sub-optimal Condition critical Denny Mahoney M.D.
[2017-03-16 07:17] LABS: ALBUMIN 1.5 g/dl (3.4-5.0); ANION GAP 13 (8-16); CALCIUM 8.1 mg/dL (8.5-10.1); CO2 27 mmol/L (21-32); GLUCOSE,RANDOM 193 mg/dL (74-106)
[2017-03-16 07:21] LABS: ALK PHOS 86 U/L (45-117); BILIRUBIN,TOTAL 7.8 mg/dL (0.2-1.0); CREATININE 6.2 mg/dL (0.7-1.3); SGPT/ALT 324 U/L (12-78)
[2017-03-16 07:24] LABS: SGOT/AST 743 U/L (15-37)
[2017-03-16] MEDS: INSULIN SLIDING SCALE (NOVOLOG) 1 VIAL SQ SCH ×3 (07:27→18:05)
[2017-03-16 07:32] LABS: TROPONIN I 8.86 ng/ml (0.00-0.05)
[2017-03-16 08:16] LABS: ARTERIAL BLD GAS O2 SATURATION 99.6 % (90-98.9); ARTERIAL BLOOD GAS BASE EXCESS 1.5 meq/l (-2-2); ARTERIAL BLOOD GAS HCO3 25.5 meq/L (22-26); ARTERIAL BLOOD GAS pH 7.42 (7.35-7.45)
[2017-03-16 08:17] LABS: ART PUNCT SITE ARTERIAL LINE; LPM/O2% 60%; PT. ON O2? YES; TYPE OF O2 VENT
[2017-03-16 08:18] LABS: MECH. VENT. Y; VENT RATE 20; VT/PRESS 450
[2017-03-16] MEDS: SEVELAMER CARBONATE 800 MG TAB (FP) PO SCH ×3 (09:22→18:08)
--- NOTE | 2017-03-16 10:15 | PN ---
Progress Note (short form) - Note Progress Note: Patient seen and examined. Spoke to . Patient had a respiratory arrest on 03/15/2017; was successfully resuscitated and on ventilator overnight but extubated today. Blood gas at that time revealing acute acidosis both a combination of respiratory and metabolic. He is still in renal failure although he is had urinated several times. The question is continuing fluid overload in spite of maximum fluid removal during daily dialysis. The has questioned me about transfer to an institution like [facility] that may have [facility] available.That contact has been made and a transfer has been accepted awaiting a bed. The patient had an elevated troponin over 8 although it has come down a bit on repeat lab testing and it appears that there is also acute NE to be dealt with. Patient originally admitted with acute cellulitis left wrist, hand and forearm an MSSA sepsis. On exam: Vital Signs Temp 100.5 F H 03/16/17 14:00 Pulse 94 H 03/16/17 16:13 Resp 18 03/16/17 16:13 BP 138/71 03/16/17 16:13 Pulse Ox 95 03/16/17 11:10 Intake & Output 03/15/17 03/16/17 03/16/17 23:59 11:59 23:59 Intake Total 113 246 6450 Output Total 200 25 110 Balance 388 752 0781 Weight 254 lb 8 oz Intake: IV 75 600 333 Heparin Infusion - 500 ml 240 131 @ 1,000 UNITS/HR 20 mls/ hr IVPB TITR PAUL[facility] Rx#: [id number] Levophed - 8,000 Mcg In 75 360 202 D5w - 492 ml @ 0.03 MCG/ KG/MIN 13.34 mls/hr IV ASDIR PAULINA Rx#:[id number] IVPB 200 200 960 Oral 250 Output: Urine 200 25 110 Void 200 25 60 Taylor 50 Other: Voiding Method Indwelling Catheter Indwelling Catheter Indwelling Catheter # Unmeasured Voids Void 1 Bowel Movement Yes # Bowel Movements 2 Weight Measurement Method Built in [facility] patient aware that at the time of my exam was still intubated. Chest decreased breath sounds. Heart regular Abdomen distended with increased bowel sounds but not does not appear tender to touch. Extremities 2+ pedal edema with excoriated rash anterior Left hand and wrist still swollen with some edema. Abnormal Lab Results 09/03/15/17 03/15/17 21:20 21:20 21:20 WBC RBC Hgb Hct RDW PT with INR 21.90 H INR 1.96 H PTT (Actin FS) ABG pO2 at Pt Temp 133.0 H D ABG O2 Sat (Measured) ABG O2 Content 13.6 L Sodium Chloride BUN Creatinine Random Glucose Lactic Acid 2.9 H* Calcium Phosphorus Total Bilirubin AST ALT Creatine Kinase Troponin I Total Protein Albumin Urine Protein Urine Glucose (UA) Urine Blood 03/16/17 03/16/17 03/16/17 01:50 05:00 05:00 WBC 15.9 H RBC 3.13 L D Hgb 9.4 L D Hct 27.7 L D RDW 16.9 H PT with INR INR PTT (Actin FS) ABG pO2 at Pt Temp ABG O2 Sat (Measured) ABG O2 Content Sodium 130 L Chloride 90 L BUN 51 H Creatinine 6.2 H Random Glucose 193 H Lactic Acid Calcium 8.1 L Phosphorus Total Bilirubin 7.8 H D AST 743 H D ALT 324 H D Creatine Kinase Troponin I Total Protein 6.0 L Albumin 1.5 L Urine Protein 3+ H Urine Glucose (UA) 1+ H Urine Blood 2+ H 03/16/17 03/16/17 03/16/17 05:00 05:00 08:10 WBC RBC Hgb Hct RDW PT with INR INR PTT (Actin FS) 201.1 H ABG pO2 at Pt Temp 226.0 H* D ABG O2 Sat (Measured) 99.6 H* ABG O2 Content 14.0 L Sodium Chloride BUN Creatinine Random Glucose Lactic Acid Calcium Phosphorus 5.5 H D Total Bilirubin AST ALT Creatine Kinase 656 H Troponin I 8.86 H* D Total Protein Albumin Urine Protein Urine Glucose (UA) Urine Blood 03/16/17 03/16/17 09:00 14:45 WBC RBC Hgb Hct RDW PT with INR INR PTT (Actin FS) 134.7 H D ABG pO2 at Pt Temp ABG O2 Sat (Measured) ABG O2 Content Sodium Chloride BUN Creatinine Random Glucose Lactic Acid Calcium Phosphorus Total Bilirubin AST ALT Creatine Kinase Troponin I 6.71 H* Total Protein Albumin Urine Protein Urine Glucose (UA) Urine Blood impression: Acute respiratory arrest due to respiratory and metabolic acidosis. Acute NE. Acute renal failure. MSSA sepsis. Cellulitis left wrist, hand and forearm. Status post coronary artery bypass x2. Diabetes mellitus type 2. Pleural effusions. Plan: Continue ICU monitoring. Followup lab Await transfer to [facility]. Dialysis daily. Continue IV antibiotics Problem List - Problems (1) Cellulitis Code(s): L03.90 - CELLULITIS, UNSPECIFIED Qualifiers: Site of cellulitis: extremity Site of cellulitis of extremity: upper extremity Laterality: left Qualified Code(s): L03.114 - Cellulitis of left upper limb (2) GI bleed Code(s): K92.2 - GASTROINTESTINAL HEMORRHAGE, UNSPECIFIED (3) Acute renal failure (ARF) Code(s): N17.9 - ACUTE KIDNEY FAILURE, UNSPECIFIED (4) CAD (coronary artery disease) Code(s): I25.10 - ATHSCL HEART DISEASE OF [place] CORONARY ARTERY W/O ANG PCTRS (5) Gout Code(s): M10.9 - GOUT, UNSPECIFIED (6) Hypertension Code(s): I10 - ESSENTIAL (PRIMARY) HYPERTENSION (7) Anemia Code(s): D64.9 - ANEMIA, UNSPECIFIED (8) Leukocytosis Code(s): D72.829 - ELEVATED WHITE BLOOD CELL COUNT, UNSPECIFIED
--- NOTE | 2017-03-16 10:21 | PN ---
Progress Note (short form) - Note Progress Note: Renal Follow up for JOE Pt seen and examined in the ICU yesterdays events reviewed pt is currently awake and alert on the Vent FiO2 is 60, on Levo 6 mcg Vital Signs Temperature 100.2 F H 03/16/17 03:00 Pulse Rate 76 03/16/17 03:00 Respiratory Rate 20 03/16/17 05:50 Blood Pressure 98/54 03/16/17 03:00 O2 Sat by Pulse Oximetry (%) 100 03/15/17 22:45 Intake & Output 03/13/17 03/14/17 03/15/17 03/16/17 23:59 23:59 23:59 23:59 Intake Total 2230 1950 625 800 Output Total 250 850 200 25 Balance 1980 1100 425 775 Weight 266 lb 12.8 oz 263 lb 6 oz 261 lb 9.6 oz 254 lb 8 oz Gen: NAD CVS: RRR Lungs: CTA Abd: soft NT/ND Ext: No LE edema, left wrist and hand swollen, eyrthema improved CBC, BMP 03/16/17 05:00 03/16/17 05:00 Current Medications Acetaminophen (Tylenol -) 650 mg PO Q4H PRN PRN Reason: PAIN Last Admin: 03/15/17 13:47 Dose: 650 mg Acetaminophen (Ofirmev Injection -) 1,000 mg IVPB Q6H PRN PRN Reason: FEVER OR PAIN Stop: 03/16/17 15:01 Last Admin: 03/16/17 03:00 Dose: 1,000 mg Allopurinol (Zyloprim -) 100 mg PO DAILY [facility] Last Admin: 03/15/17 09:41 Dose: 100 mg Atorvastatin Calcium (Lipitor -) 40 mg PO HS [facility] Last Admin: 03/15/17 21:58 Dose: Not Given Cholecalciferol (Vitamin D3 -) 2,000 unit PO DAILY [facility] Last Admin: 03/15/17 09:41 Dose: 2,000 unit Fentanyl (Sublimaze Injection -) 50 mcg IVPUSH Q30M PRN PRN Reason: AGITATION Stop: 03/16/17 20:16 Last Admin: 03/15/17 22:00 Dose: 50 mcg Heparin Sodium (Porcine) (Heparin -) 1,000 unit IVPUSH PRN PRN PRN Reason: Heparin Heparin Sodium (Porcine) (Heparin -) 5,000 unit IVPUSH PRN PRN PRN Reason: Heparin Hydrocortisone (Hytone 1% Cream -) 1 applic TP BID PRN PRN Reason: FOR ITCHING Last Admin: 03/12/17 11:48 Dose: 1 applic IV Flush (Picc Line Flush) 8 ml IVPUSH PRN PRN PRN Reason: Protocol Nafcillin Sodium 2 gm/ (Dextrose) 100 mls @ 100 mls/hr IVPB Q4H-IV [facility] Last Admin: 03/16/17 09:28 Dose: 100 mls/hr Heparin Sodium/Dextrose (Heparin Infusion -) 500 mls @ 20 mls/hr IVPB TITR PAULINA ; 1,000 UNITS/HR PRN Reason: Protocol Last Titration: 03/16/17 08:05 Dose: 700 units/hr Norepinephrine Bitartrate 8, (000 mcg/ Dextrose) 500 mls @ 13.34 mls/hr IV ASDIR PAULINA; 0.03 MCG/KG/MIN PRN Reason: Protocol Last Admin: 03/15/17 18:20 Dose: 37.5 mls/hr Insulin Aspart (Novolog Vial Sliding Scale -) 1 vial SQ TIDAC PA[facility] PRN Reason: Protocol Last Admin: 03/16/17 07:27 Dose: 2 units Midazolam HCl (Versed -) 2 mg IVPUSH Q2H PRN PRN Reason: SHORTNESS OF BREATH Last Admin: 03/15/17 22:01 Dose: 2 mg Ondansetron HCl (Zofran Injection) 4 mg IVPB Q8H PRN PRN Reason: NAUSEA Pantoprazole Sodium (Protonix -) 40 mg PO DAILY [facility] Last Admin: 03/15/17 09:42 Dose: 40 mg Polyethylene Glycol (Miralax (For Daily Use) -) 17 gm PO DAILY [facility] Last Admin: 03/15/17 10:00 Dose: 17 gm Sevelamer Carbonate (Renvela -) 800 mg PO TIDCM [facility] Last Admin: 03/16/17 09:22 Dose: Not Given Vitamin E (Vitamin E -) 400 unit PO DAILY [facility] Last Admin: 03/15/17 09:52 Dose: Not Given A/P 71 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 #PEA Arrest/Resp Failure Etiology fluid overload vs. primary cardiac event vs. PE Vent management as per ICU On Levophed, taper as tolerated Check ECHO, LE doppler Cardiology follow up #Oliguric Renal Failure with volume overload s/p HD with UF the last 5 days will plan additional Hd today 2 hrs and 2 hours isolated UF will attempt UF as tolerated hemodynamically Pt is a good candidate for CVVHD given fluid overload and presser dependence #Anemia s/p prbc transfusion yesterday Aubrey Acharya DO Problem List - Problems (1) Cellulitis Code(s): L03.90 - CELLULITIS, UNSPECIFIED Qualifiers: Site of cellulitis: extremity Site of cellulitis of extremity: upper extremity Laterality: left Qualified Code(s): L03.114 - Cellulitis of left upper limb (2) Acute renal failure (ARF) Code(s): N17.9 - ACUTE KIDNEY FAILURE, UNSPECIFIED (3) CAD (coronary artery disease) Code(s): I25.10 - ATHSCL HEART DISEASE OF [place] CORONARY ARTERY W/O ANG PCTRS (4) Hypertension Code(s): I10 - ESSENTIAL (PRIMARY) HYPERTENSION (5) Gout Code(s): M10.9 - GOUT, UNSPECIFIED (6) Leukocytosis Code(s): D72.829 - ELEVATED WHITE BLOOD CELL COUNT, UNSPECIFIED
--- NOTE | 2017-03-16 10:53 | EKG ---
Test Reason : Blood Pressure : / mmHG Vent. Rate : 083 BPM Atrial Rate : 083 BPM P-R Int : 166 ms QRS Dur : 098 ms QT Int : 502 ms P-R-T Axes : 043 -08 124 degrees QTc Int : 589 ms SINUS RHYTHM WITH MARKED SINUS ARRHYTHMIA ABNORMAL QRS-T ANGLE, CONSIDER PRIMARY T WAVE ABNORMALITY PROLONGED QT ABNORMAL ECG WHEN COMPARED WITH ECG OF 15-MAR-2017 17:35, NO SIGNIFICANT CHANGE WAS FOUND Confirmed by GARCIA ARANDA MD ([id number]) on 03/16/2017 10:52:59 AM Referred By: HERBERT GUTIERREZ Confirmed By:GARCIA ARANDA MD
--- NOTE | 2017-03-16 11:14 | EKG ---
Test Reason : Blood Pressure : / mmHG Vent. Rate : 111 BPM Atrial Rate : 111 BPM P-R Int : 144 ms QRS Dur : 090 ms QT Int : 324 ms P-R-T Axes : 028 -01 105 degrees QTc Int : 440 ms SINUS TACHYCARDIA NONSPECIFIC ST AND T WAVE ABNORMALITY ABNORMAL ECG WHEN COMPARED WITH ECG OF 12-MAR-2017 09:44, MINIMAL CRITERIA FOR INFERIOR INFARCT ARE NO LONGER PRESENT Confirmed by GARCIA ARANDA MD ([id number]) on 03/16/2017 11:13:49 AM Referred By: Confirmed By:GARCIA ARANDA MD
[2017-03-16] MEDS: ALLOPURINOL 100 MG TABLET (FP) PO SCH ×2 (11:57→14:17)
[2017-03-16] MEDS: VITAMIN E 400 INTERNATIONAL-UNITS CAPSULE (FP) PO SCH (11:58)
[2017-03-16] MEDS: CHOLECALCIFEROL (VITAMIN D3) 1,000 UNIT TABLET (FP) PO SCH ×2 (11:58→14:16)
[2017-03-16] MEDS: POLYETHYLENE GLYCOL 3350 119 GM BTL PO SCH (11:59)
[2017-03-16] MEDS: PANTOPRAZOLE 40 MG TABLET (FP) PO SCH ×2 (11:59→14:12)
[2017-03-16] MEDS ORDERED: VANCOMYCIN 1,000 MG in DEXTROSE 5%-WATER - 250 ML IVPB ONE (12:00)
[2017-03-16] MEDS ORDERED: INSULIN (NOVOLOG) ASPART 100 UNITS/ML 10ML VIAL ONE (12:15)
[2017-03-16] MEDS: PIPERACILLIN/TAZOB 2.25 GM 50 ML IVPB SCH ×3 (12:21→20:26)
[2017-03-16] MEDS ORDERED: ACETAMINOPHEN 1000 MG/100 ML VIAL (NON FORMULARY) IVPB ONE (12:30)
--- NOTE | 2017-03-16 12:56 | PN ---
Teaching Attending Note Name of Resident: Hitesh Wooten ATTENDING PHYSICIAN STATEMENT I saw and evaluated the patient. I reviewed the resident's note and discussed the case with the resident. I agree with the resident's findings and plan as documented. SUBJECTIVE: Pt seen and examined in the ICU. Awake, alert on vent this AM, tolerated CPAP/ PS and extubated during rounds. On lower dose levophed gtt. OBJECTIVE: Last Vital Signs Temp Pulse Resp BP Pulse Ox 101.1 F H 86 17 136/71 95 03/16/17 11:10 03/16/17 12:45 03/16/17 12:45 03/16/17 12:45 03/16/17 11:10 Intake & Output 03/13/17 03/14/17 03/15/17 03/16/17 23:59 23:59 23:59 23:59 Intake Total 2230 1950 625 800 Output Total 250 850 200 25 Balance 1979 1100 425 775 Weight 266 lb 12.8 oz 263 lb 6 oz 261 lb 9.6 oz 254 lb 8 oz Gen: extubated, awake Heart: RRR Lung: scattered rhonchi Abd: soft, nontender Ext: +anasarca CBC, BMP 03/16/17 05:00 03/16/17 05:00 Active Medications Acetaminophen (Tylenol -) 650 mg PO Q4H PRN PRN Reason: PAIN Last Admin: 03/15/17 13:47 Dose: 650 mg Acetaminophen (Ofirmev Injection -) 1,000 mg IVPB Q6H PRN PRN Reason: FEVER OR PAIN Stop: 03/16/17 15:01 Last Admin: 03/16/17 11:46 Dose: 1,000 mg Allopurinol (Zyloprim -) 100 mg PO DAILY [facility] Last Admin: 03/16/17 11:57 Dose: Not Given Atorvastatin Calcium (Lipitor -) 40 mg PO HS [facility] Last Admin: 03/15/17 21:58 Dose: Not Given Cholecalciferol (Vitamin D3 -) 2,000 unit PO DAILY [facility] Last Admin: 03/16/17 11:58 Dose: Not Given Fentanyl (Sublimaze Injection -) 50 mcg IVPUSH Q30M PRN PRN Reason: AGITATION Stop: 03/16/17 20:16 Last Admin: 03/15/17 22:00 Dose: 50 mcg Heparin Sodium (Porcine) (Heparin -) 1,000 unit IVPUSH PRN PRN PRN Reason: Heparin Heparin Sodium (Porcine) (Heparin -) 5,000 unit IVPUSH PRN PRN PRN Reason: Heparin Hydrocortisone (Hytone 1% Cream -) 1 applic TP BID PRN PRN Reason: FOR ITCHING Last Admin: 03/12/17 11:48 Dose: 1 applic IV Flush (Picc Line Flush) 8 ml IVPUSH PRN PRN PRN Reason: Protocol Nafcillin Sodium 2 gm/ (Dextrose) 100 mls @ 100 mls/hr IVPB Q4H-IV [facility] Last Admin: 03/16/17 09:28 Dose: 100 mls/hr Heparin Sodium/Dextrose (Heparin Infusion -) 500 mls @ 20 mls/hr IVPB TITR [facility] ; 1,000 UNITS/HR PRN Reason: Protocol Last Titration: 03/16/17 08:05 Dose: 700 units/hr Norepinephrine Bitartrate 8, (000 mcg/ Dextrose) 500 mls @ 13.34 mls/hr IV ASDIR [facility]; 0.03 MCG/KG/MIN PRN Reason: Protocol Last Titration: 03/16/17 10:45 Dose: 0.05 mcg/kg/min Vancomycin HCl 1,000 mg/ (Dextrose) 250 mls @ 250 mls/hr IVPB ONCE ONE PRN Reason: Protocol Stop: 03/16/17 12:59 Piperacillin Sod/Tazobactam Sod (Zosyn 2.25gm Ivpb (Pre-Docked)) 50 mls @ 100 mls/hr IVPB Q6H-IV [facility] PRN Reason: Protocol Last Admin: 03/16/17 12:21 Dose: Not Given Insulin Aspart (Novolog Vial Sliding Scale -) 1 vial SQ TIDAC [facility] PRN Reason: Protocol Last Admin: 03/16/17 12:19 Dose: 2 units Ondansetron HCl (Zofran Injection) 4 mg IVPB Q8H PRN PRN Reason: NAUSEA Pantoprazole Sodium (Protonix -) 40 mg PO DAILY [facility] Last Admin: 03/16/17 11:59 Dose: Not Given Polyethylene Glycol (Miralax (For Daily Use) -) 17 gm PO DAILY [facility] Last Admin: 03/16/17 11:59 Dose: Not Given Sevelamer Carbonate (Renvela -) 800 mg PO TIDCM [facility] Last Admin: 03/16/17 09:22 Dose: Not Given Vitamin E (Vitamin E -) 400 unit PO DAILY [facility] Last Admin: 03/16/17 11:58 Dose: Not Given ASSESSMENT AND PLAN: s/p Cardiopulmonary Arrest Metabolic/Lactic Acidosis Acute Kidney Injury requiring HD +Troponins/CAD/r/o ACS/NSTEMI Pneumonia Shock - Favor Septic vs Cardiogenic Acute on Chronic LV Systolic/Diastolic Heart Failure Staph Bacteremia HTN DM Recent GI Bleed - pt extubated - taper levophed gtt to keep MAP >65 - HD per renal with ultrafiltration - broaden antibiotics - f/u pending cultures - heparin gtt - monitor H/H - echocardiogram - DVT/GI prophylaxis - ICU monitoring - discussed with at bedside critical care time spent in reviewing chart, evaluating patient and formulating plan 45 min
[2017-03-16] MEDS: oxyCODONE HCL 5 MG TABLET PO PRN ×3 (13:33→23:52)
[2017-03-16] MEDS ORDERED: PT OWN MED DRAWER 7, Y5N ONE ×4 (14:23→19:12)
[2017-03-16] MEDS: HYDROCORTISONE 1% TOPICAL CREAM 30 GM TUBE TP PRN (14:25)
--- NOTE | 2017-03-16 14:52 | PN ---
Progress Note, Physician History of Present Illness: events noted patient had mi and resp arrest was intubated patient transferred to icu and stabilized ow extubated and on pressors minimal amount confusion spoke with - Current Medication List Current Medications: Active Medications Acetaminophen (Tylenol -) 650 mg PO Q4H PRN PRN Reason: PAIN Last Admin: 03/15/17 13:47 Dose: 650 mg Acetaminophen (Ofirmev Injection -) 1,000 mg IVPB Q6H PRN PRN Reason: FEVER OR PAIN Stop: 03/16/17 15:01 Last Admin: 03/16/17 11:46 Dose: 1,000 mg Allopurinol (Zyloprim -) 100 mg PO DAILY [facility] Last Admin: 03/16/17 14:17 Dose: 100 mg Atorvastatin Calcium (Lipitor -) 40 mg PO HS [facility] Last Admin: 03/15/17 21:58 Dose: Not Given Cholecalciferol (Vitamin D3 -) 2,000 unit PO DAILY [facility] Last Admin: 03/16/17 14:16 Dose: 1,000 unit Fentanyl (Sublimaze Injection -) 50 mcg IVPUSH Q30M PRN PRN Reason: AGITATION Stop: 03/16/17 20:16 Last Admin: 03/15/17 22:00 Dose: 50 mcg Heparin Sodium (Porcine) (Heparin -) 1,000 unit IVPUSH PRN PRN PRN Reason: Heparin Heparin Sodium (Porcine) (Heparin -) 5,000 unit IVPUSH PRN PRN PRN Reason: Heparin Hydrocortisone (Hytone 1% Cream -) 1 applic TP BID PRN PRN Reason: FOR ITCHING Last Admin: 03/16/17 14:25 Dose: 1 applic IV Flush (Picc Line Flush) 8 ml IVPUSH PRN PRN PRN Reason: Protocol Heparin Sodium/Dextrose (Heparin Infusion -) 500 mls @ 20 mls/hr IVPB TITR [facility] ; 1,000 UNITS/HR PRN Reason: Protocol Last Titration: 03/16/17 08:05 Dose: 700 units/hr Norepinephrine Bitartrate 8, (000 mcg/ Dextrose) 500 mls @ 13.34 mls/hr IV ASDIR [facility]; 0.03 MCG/KG/MIN PRN Reason: Protocol Last Titration: 03/16/17 10:45 Dose: 0.05 mcg/kg/min Piperacillin Sod/Tazobactam Sod (Zosyn 2.25gm Ivpb (Pre-Docked)) 50 mls @ 100 mls/hr IVPB Q6H-IV [facility] PRN Reason: Protocol Last Admin: 03/16/17 12:21 Dose: Not Given Nafcillin Sodium 2 gm/ (Dextrose) 100 mls @ 100 mls/hr IVPB Q4H-IV [facility] PRN Reason: Protocol Clindamycin Phosphate 300 mg/ (Dextrose) 50 mls @ 104 mls/hr IVPB Q6H-IV [facility] Insulin Aspart (Novolog Vial Sliding Scale -) 1 vial SQ TIDAC [facility] PRN Reason: Protocol Last Admin: 03/16/17 12:19 Dose: 2 units Ondansetron HCl (Zofran Injection) 4 mg IVPB Q8H PRN PRN Reason: NAUSEA Oxycodone HCl (Roxicodone -) 10 mg PO Q4H PRN PRN Reason: PAIN Last Admin: 03/16/17 13:33 Dose: 10 mg Pantoprazole Sodium (Protonix -) 40 mg PO DAILY [facility] Last Admin: 03/16/17 14:12 Dose: 40 mg Polyethylene Glycol (Miralax (For Daily Use) -) 17 gm PO DAILY [facility] Last Admin: 03/16/17 11:59 Dose: Not Given Sevelamer Carbonate (Renvela -) 800 mg PO TIDCM [facility] Last Admin: 03/16/17 14:02 Dose: Not Given Vitamin E (Vitamin E -) 400 unit PO DAILY [facility] Last Admin: 03/16/17 11:58 Dose: Not Given - Objective Vital Signs: Vital Signs Temperature 101.1 F H 03/16/17 11:10 Pulse Rate 84 03/16/17 14:15 Respiratory Rate 18 03/16/17 14:15 Blood Pressure 146/70 03/16/17 14:15 O2 Sat by Pulse Oximetry (%) 95 03/16/17 11:10 Constitutional: Yes: No Distress, Calm Eyes: Yes: Conjunctiva Clear Cardiovascular: Yes: Regular Rate and Rhythm Respiratory: Yes: Regular, Poor Air Entry (rt side) Gastrointestinal: Yes: Normal Bowel Sounds, Soft Musculoskeletal: Yes: WNL Extremities: Yes: WNL Neurological: Yes: Alert, Confusion Psychiatric: Yes: Alert Labs: CBC, BMP 03/16/17 05:00 03/16/17 05:00 INR, PTT INR 1.96 (0.82-1.09) H 03/15/17 21:20 Assessment/Plan sepsis septic left wrist joint gm positive bacteremia fever tenderness leukocytosis nstemi plan conitnue abx await for all cx reports close watch patient currently getting dialysis abx re adjusted close monitoring cc time 45 min
--- NOTE | 2017-03-16 16:15 | PN ---
Physical Exam: SUBJECTIVE: 71 yo M with h/o CAD, PR, CABG, who presented to ED with left wrist cellulitis complicated with acute on chronic renal failure s/p dialysis. Became unresponsive ( 03/15) and in respiratory arrest. Following transport to ICU pt. developed PEA and underwent successful cardiac resuscitation. This AM pt. tolerating vent settings and extubated. Tolerating CPAP OBJECTIVE: Vital Signs Period Temp Pulse Resp BP Sys/Resendez Pulse Ox Last 24 Hr 99 F-101.1 F 76-106 13-28 78-153/47-102 94-100 GENERAL: The patient is awake, alert, and fully oriented, in no acute distress. HEAD: Normal with no signs of trauma. EYES: PERRL, extraocular movements intact, sclera anicteric, conjunctiva clear. No ptosis. ENT: Ears normal, nares patent, oropharynx clear without exudates, moist mucous membranes. NECK: Trachea midline, full range of motion, supple. LUNGS: Breath sounds equal, clear to auscultation bilaterally, no wheezes, no crackles, no accessory muscle use. HEART: Regular rate and rhythm, S1, S2 without murmur, rub or gallop. ABDOMEN: Soft, nontender, nondistended, normoactive bowel sounds, no guarding, no rebound, no hepatosplenomegaly, no masses. EXTREMITIES: 2+ pulses, warm, well-perfused, no edema. NEUROLOGICAL: Cranial nerves II through XII grossly intact. Normal speech, gait not observed. PSYCH: Normal mood, normal affect. SKIN: Warm, dry, normal turgor, no rashes or lesions noted Laboratory Results - last 24 hr 03/13/17 03/15/17 03/15/17 09:30 16:01 16:40 WBC 14.1 H D RBC 2.41 L Hgb 7.4 L Hct 22.5 L MCV 93.6 MCH 30.8 MCHC 33.0 RDW 16.4 H Plt Count 445 H D MPV 7.4 L Neutrophils % 71.8 Lymphocytes % 14.2 D Monocytes % 7.6 Eosinophils % 4.5 Basophils % 1.9 PT with INR INR PTT (Actin FS) Puncture Site Right radial ABG pH 7.10 L* ABG pCO2 at Pt Temp 52.3 H D ABG pO2 at Pt Temp 198.0 H* D ABG HCO3 15.7 L ABG O2 Sat (Measured) 98.1 ABG O2 Content 12.2 L ABG Base Excess -13.0 L* Kvng Test Positive VBG pH POC VBG pCO2 POC VBG pO2 Mixed VBG HCO3 O2 Delivery Device Vent Oxygen Flow Rate 100% Vent Mode A/c Vent Rate 14 Mechanical Rate Y PEEP 5.0 Pressure Support Vent 500 Sodium Potassium Chloride Carbon Dioxide Anion Gap BUN Creatinine Creat Clearance w eGFR Random Glucose Lactic Acid Calcium Phosphorus Magnesium Total Bilirubin AST ALT Alkaline Phosphatase Creatine Kinase Creatine Kinase Index CK-MB (CK-2) Troponin I Total Protein Albumin Urine Color Urine Appearance Urine pH Ur Specific Loyal Urine Protein Urine Glucose (UA) Urine Ketones Urine Blood Urine Nitrite Urine Bilirubin Urine Urobilinogen Urine RBC Urine WBC Amorphous Urates Hyaline Casts Urine Mucus Blood Type O NEGATIVE Antibody Screen Negative Crossmatch See Detail 03/15/17 03/15/17 03/15/17 16:40 16:40 16:40 WBC RBC Hgb Hct MCV MCH MCHC RDW Plt Count MPV Neutrophils % Lymphocytes % Monocytes % Eosinophils % Basophils % PT with INR INR PTT (Actin FS) Puncture Site ABG pH ABG pCO2 at Pt Temp ABG pO2 at Pt Temp ABG HCO3 ABG O2 Sat (Measured) ABG O2 Content ABG Base Excess Kvng Test VBG pH POC VBG pCO2 POC VBG pO2 Mixed VBG HCO3 O2 Delivery Device Oxygen Flow Rate Vent Mode Vent Rate Mechanical Rate PEEP Pressure Support Vent Sodium 135 L Potassium 3.9 Chloride 90 L Carbon Dioxide 24 Anion Gap 21 H BUN 57 H Creatinine 7.2 H Creat Clearance w eGFR 7.57 Random Glucose 195 H Lactic Acid 9.0 H* Calcium 7.8 L Phosphorus Magnesium Total Bilirubin 5.0 H AST 115 H D ALT 54 D Alkaline Phosphatase 76 Creatine Kinase 249 Creatine Kinase Index 0.8 CK-MB (CK-2) 2.188 Troponin I 0.73 H* D Total Protein 5.1 L Albumin 1.3 L D Urine Color Urine Appearance Urine pH Ur Specific Loyal Urine Protein Urine Glucose (UA) Urine Ketones Urine Blood Urine Nitrite Urine Bilirubin Urine Urobilinogen Urine RBC Urine WBC Amorphous Urates Hyaline Casts Urine Mucus Blood Type Antibody Screen Crossmatch 03/15/17 03/15/17 03/15/17 16:40 21:20 21:20 WBC RBC Hgb Hct MCV MCH MCHC RDW Plt Count MPV Neutrophils % Lymphocytes % Monocytes % Eosinophils % Basophils % PT with INR 18.60 H INR 1.67 H D PTT (Actin FS) 40.0 H Puncture Site Arterial line ABG pH 7.38 D ABG pCO2 at Pt Temp 40.0 D ABG pO2 at Pt Temp 133.0 H D ABG HCO3 23.1 ABG O2 Sat (Measured) 98.9 ABG O2 Content 13.6 L ABG Base Excess -1.3 Kvng Test Not applicable VBG pH POC VBG pCO2 POC VBG pO2 Mixed VBG HCO3 O2 Delivery Device vent Oxygen Flow Rate 60% Vent Mode ac Vent Rate 16 Mechanical Rate y PEEP 5.0 Pressure Support Vent 600 Sodium Potassium Chloride Carbon Dioxide Anion Gap BUN Creatinine Creat Clearance w eGFR Random Glucose Lactic Acid 2.9 H* Calcium Phosphorus Magnesium Total Bilirubin AST ALT Alkaline Phosphatase Creatine Kinase Creatine Kinase Index CK-MB (CK-2) Troponin I Total Protein Albumin Urine Color Urine Appearance Urine pH Ur Specific Loyal Urine Protein Urine Glucose (UA) Urine Ketones Urine Blood Urine Nitrite Urine Bilirubin Urine Urobilinogen Urine RBC Urine WBC Amorphous Urates Hyaline Casts Urine Mucus Blood Type Antibody Screen Crossmatch 03/15/17 03/15/17 03/16/17 21:20 21:25 01:50 WBC RBC Hgb Hct MCV MCH MCHC RDW Plt Count MPV Neutrophils % Lymphocytes % Monocytes % Eosinophils % Basophils % PT with INR 21.90 H INR 1.96 H PTT (Actin FS) Puncture Site ABG pH ABG pCO2 at Pt Temp ABG pO2 at Pt Temp ABG HCO3 ABG O2 Sat (Measured) ABG O2 Content ABG Base Excess Kvng Test VBG pH 7.34 POC VBG pCO2 47.4 POC VBG pO2 38.5 Mixed VBG HCO3 24.9 O2 Delivery Device Oxygen Flow Rate Vent Mode Vent Rate Mechanical Rate PEEP Pressure Support Vent Sodium Potassium Chloride Carbon Dioxide Anion Gap BUN Creatinine Creat Clearance w eGFR Random Glucose Lactic Acid Calcium Phosphorus Magnesium Total Bilirubin AST ALT Alkaline Phosphatase Creatine Kinase Creatine Kinase Index CK-MB (CK-2) Troponin I Total Protein Albumin Urine Color Yellow Urine Appearance Cloudy Urine pH 5.0 Ur Specific Loyal 1.020 Urine Protein 3+ H Urine Glucose (UA) 1+ H Urine Ketones Negative Urine Blood 2+ H Urine Nitrite Negative Urine Bilirubin Negative Urine Urobilinogen Negative Urine RBC 36 Urine WBC 5 Amorphous Urates Moderate Hyaline Casts 1 Urine Mucus Rare Blood Type Antibody Screen Crossmatch 03/16/17 03/16/17 03/16/17 05:00 05:00 05:00 WBC 15.9 H RBC 3.13 L D Hgb 9.4 L D Hct 27.7 L D MCV 88.5 MCH 30.2 MCHC 34.1 RDW 16.9 H Plt Count 307 D MPV 7.5 Neutrophils % 82.2 Lymphocytes % 8.8 D Monocytes % 7.7 Eosinophils % 0.9 Basophils % 0.4 PT with INR INR PTT (Actin FS) Puncture Site ABG pH ABG pCO2 at Pt Temp ABG pO2 at Pt Temp ABG HCO3 ABG O2 Sat (Measured) ABG O2 Content ABG Base Excess Kvng Test VBG pH POC VBG pCO2 POC VBG pO2 Mixed VBG HCO3 O2 Delivery Device Oxygen Flow Rate Vent Mode Vent Rate Mechanical Rate PEEP Pressure Support Vent Sodium 130 L Potassium 4.0 Chloride 90 L Carbon Dioxide 27 Anion Gap 13 BUN 51 H Creatinine 6.2 H Creat Clearance w eGFR 9.00 Random Glucose 193 H Lactic Acid Calcium 8.1 L Phosphorus 5.5 H D Magnesium 2.0 Total Bilirubin 7.8 H D AST 743 H D ALT 324 H D Alkaline Phosphatase 86 Creatine Kinase 656 H Creatine Kinase Index 0.3 CK-MB (CK-2) 2.297 Troponin I 8.86 H* D Total Protein 6.0 L Albumin 1.5 L Urine Color Urine Appearance Urine pH Ur Specific Loyal Urine Protein Urine Glucose (UA) Urine Ketones Urine Blood Urine Nitrite Urine Bilirubin Urine Urobilinogen Urine RBC Urine WBC Amorphous Urates Hyaline Casts Urine Mucus Blood Type Antibody Screen Crossmatch 03/16/17 03/16/17 03/16/17 05:00 08:10 08:30 WBC RBC Hgb Hct MCV MCH MCHC RDW Plt Count MPV Neutrophils % Lymphocytes % Monocytes % Eosinophils % Basophils % PT with INR INR PTT (Actin FS) 201.1 H Puncture Site Arterial line ABG pH 7.42 ABG pCO2 at Pt Temp 40.1 ABG pO2 at Pt Temp 226.0 H* D ABG HCO3 25.5 ABG O2 Sat (Measured) 99.6 H* ABG O2 Content 14.0 L ABG Base Excess 1.5 Kvng Test Not applicable VBG pH POC VBG pCO2 POC VBG pO2 Mixed VBG HCO3 O2 Delivery Device Vent Oxygen Flow Rate 60% Vent Mode A/c Vent Rate 20 Mechanical Rate Y PEEP 8.0 Pressure Support Vent 450 Sodium Potassium Chloride Carbon Dioxide Anion Gap BUN Creatinine Creat Clearance w eGFR Random Glucose Lactic Acid 1.3 Calcium Phosphorus Magnesium Total Bilirubin AST ALT Alkaline Phosphatase Creatine Kinase Creatine Kinase Index CK-MB (CK-2) Troponin I Total Protein Albumin Urine Color Urine Appearance Urine pH Ur Specific Loyal Urine Protein Urine Glucose (UA) Urine Ketones Urine Blood Urine Nitrite Urine Bilirubin Urine Urobilinogen Urine RBC Urine WBC Amorphous Urates Hyaline Casts Urine Mucus Blood Type Antibody Screen Crossmatch 03/16/17 09:00 WBC RBC Hgb Hct MCV MCH MCHC RDW Plt Count MPV Neutrophils % Lymphocytes % Monocytes % Eosinophils % Basophils % PT with INR INR PTT (Actin FS) Puncture Site ABG pH ABG pCO2 at Pt Temp ABG pO2 at Pt Temp ABG HCO3 ABG O2 Sat (Measured) ABG O2 Content ABG Base Excess Kvng Test VBG pH POC VBG pCO2 POC VBG pO2 Mixed VBG HCO3 O2 Delivery Device Oxygen Flow Rate Vent Mode Vent Rate Mechanical Rate PEEP Pressure Support Vent Sodium Potassium Chloride Carbon Dioxide Anion Gap BUN Creatinine Creat Clearance w eGFR Random Glucose Lactic Acid Calcium Phosphorus Magnesium Total Bilirubin AST ALT Alkaline Phosphatase Creatine Kinase Creatine Kinase Index CK-MB (CK-2) Troponin I 6.71 H* Total Protein Albumin Urine Color Urine Appearance Urine pH Ur Specific Loyal Urine Protein Urine Glucose (UA) Urine Ketones Urine Blood Urine Nitrite Urine Bilirubin Urine Urobilinogen Urine RBC Urine WBC Amorphous Urates Hyaline Casts Urine Mucus Blood Type Antibody Screen Crossmatch Active Medications Generic Name Dose Route Start Last Admin Trade Name Karina PRN Reason Stop Dose Admin Acetaminophen 650 mg 03/06/17 16:21 03/15/17 13:47 Tylenol - PO 650 mg Q4H PRN Administration PAIN Allopurinol 100 mg 03/07/17 10:00 03/16/17 14:17 Zyloprim - PO 100 mg DAILY [facility] Administration Atorvastatin Calcium 40 mg 03/06/17 22:00 03/15/17 21:58 Lipitor - PO Not Given HS [facility] Cholecalciferol 2,000 unit 03/07/17 10:00 03/16/17 14:16 Vitamin D3 - PO 1,000 unit DAILY [facility] Administration Fentanyl 50 mcg 03/15/17 21:46 03/15/17 22:00 Sublimaze Injection - IVPUSH 03/16/17 20:16 50 mcg Q30M PRN Administration AGITATION Heparin Sodium (Porcine) 1,000 unit 03/15/17 16:14 Heparin - IVPUSH PRN PRN Heparin Heparin Sodium (Porcine) 5,000 unit 03/15/17 16:14 Heparin - IVPUSH PRN PRN Heparin Hydrocortisone 1 applic 03/12/17 09:05 03/16/17 14:25 Hytone 1% Cream - TP 1 applic BID PRN Administration FOR ITCHING IV Flush 8 ml 03/13/17 20:23 Picc Line Flush IVPUSH PRN PRN Protocol Heparin Sodium/Dextrose 500 mls @ 20 mls/hr 03/15/17 16:15 03/16/17 08:05 Heparin Infusion - IVPB 700 units/hr TITR [facility] Titration Protocol 1,000 UNITS/HR Norepinephrine Bitartrate 8, 500 mls @ 13.34 mls/hr 03/15/17 18:00 03/16/17 15: 32 000 mcg/ Dextrose IV 0.02 mcg/kg/min ASDIR [facility] Titration Protocol 0.03 MCG/KG/MIN Piperacillin Sod/Tazobactam Sod 50 mls @ 100 mls/hr 03/16/17 10:45 03/16/17 12: 21 Zosyn 2.25gm Ivpb (Pre-Docked) IVPB Not Given Q6H-IV [facility] Protocol Nafcillin Sodium 2 gm/ 100 mls @ 100 mls/hr 03/16/17 14:45 Dextrose IVPB Q4H-IV [facility] Protocol Clindamycin Phosphate 50 mls @ 104 mls/hr 03/16/17 15:00 Cleocin 300 Mg Premix Ivpb IVPB Q6H-IV [facility] Insulin Aspart 1 vial 03/06/17 16:30 03/16/17 12:19 Novolog Vial Sliding Scale - SQ 2 units TIDAC [facility] Administration Protocol Ondansetron HCl 4 mg 03/06/17 16:21 Zofran Injection IVPB Q8H PRN NAUSEA Oxycodone HCl 10 mg 03/16/17 13:15 03/16/17 13:33 Roxicodone - PO 10 mg Q4H PRN Administration PAIN Pantoprazole Sodium 40 mg 03/12/17 10:00 03/16/17 14:12 Protonix - PO 40 mg DAILY [facility] Administration Polyethylene Glycol 17 gm 03/07/17 10:00 03/16/17 11:59 Miralax (For Daily Use) - PO Not Given DAILY [facility] Sevelamer Carbonate 800 mg 03/07/17 12:00 03/16/17 14:02 Renvela - PO Not Given TIDCM [facility] Vitamin E 400 unit 03/07/17 10:00 03/16/17 11:58 Vitamin E - PO Not Given DAILY [facility] ASSESSMENT/PLAN: 71 yo M with h/o CAD, PR, CABG, who presented to ED with left wrist cellulitis complicated with acute on chronic renal failure s/p dialysis. Became unresponsive ( 03/15) and in respiratory arrest. Following transport to ICU pt. developed PEA and underwent successful cardiac resuscitation. Resp Failure: 2/2 volume overload vs. PE vs. cardiac event Taper Levophed as tolerated Echo ,and BL LE doppler Renal Failure 2/2 volume overload: Currently getting dialysis Consider CVHHD in setting of volume overload and pressor dependence Anemia: s/p PRBC transfusion Visit type - Emergency Visit Emergency Visit: Yes ED Registration Date: 02/25/17 Care time: The patient presented to the Emergency Department on the above date and was hospitalized for further evaluation of their emergent condition. - New Patient This patient is new to me today: Yes Date on this admission: 03/16/17 - Critical Care Critical Care patient: Yes Total Critical Care Time (in minutes): 30 Critical Care Statement: The care of this patient involved high complexity decision making to prevent further life threatening deterioration of the patient 's condition and/or to evaluate & treat vital organ system(s) failure or risk of failure.
[2017-03-16] MEDS: CLINDAMYCIN 300 MG PREMIX IVPB 50 ML IVPB SCH ×2 (16:20→20:26)
[2017-03-16] MEDS: NAFCILLIN - 2 GM in DEXTROSE 5%-WATER - 100 ML IVPB SCH ×3 (16:25→22:21)
[2017-03-16] MEDS: HEPARIN INFUSION - 500 ML IVPB SCH (17:14)
[2017-03-16] MEDS: ACETAMINOPHEN 325 MG TABLET (FP) PO PRN ×2 (18:04→23:52)
--- NOTE | 2017-03-16 18:09 | HOSP ---
Subjective - Review of Symptoms Events since last encounter: Notified by nurse at 17:45 that patient spit up a tea spoon amount of bright red blood on one occasion. Vitals are stable, patient denies chest pain, abd pain, increased sob or dizziness. Pulmonary: No: Dyspnea, Cough, Pleuritic Chest Pain Cardiovascular: No: Chest Pain, Palpitations, Light Headedness Gastrointestinal: No: Nausea, Vomiting, Abdominal Pain, Melena, Hematochezia Physical Examination Vital Signs: Vital Signs Temperature 100.5 F H 03/16/17 14:00 Pulse Rate 94 H 03/16/17 16:13 Respiratory Rate 18 03/16/17 16:13 Blood Pressure 138/71 03/16/17 16:13 O2 Sat by Pulse Oximetry (%) 95 03/16/17 11:10 Labs: CBC, BMP 03/16/17 05:00 03/16/17 05:00 Hospitalist Encounter Assessment: Given improved clinical picture and today's extubation, source of minor bleed is likely slight mucosal tear in the larynx from ET tube. patients hep has been decreased earlier today due to supratherapeutic PTT. PE unlikely. Will watch for gib (already on PPi PPX), will follow vitals. Visit type - Emergency Visit Emergency Visit: No - New Patient This patient is new to me today: Yes Date on this admission: 03/16/17 - Critical Care Critical Care patient: Yes Total Critical Care Time (in minutes): 35 Critical Care Statement: The care of this patient involved high complexity decision making to prevent further life threatening deterioration of the patient 's condition and/or to evaluate & treat vital organ system(s) failure or risk of failure.
[2017-03-16] MEDS: ATORVASTATIN CA 40 MG TABLET (FP) PO SCH (21:42)
[2017-03-17] MEDS: NAFCILLIN - 2 GM in DEXTROSE 5%-WATER - 100 ML IVPB SCH ×7 (01:12→22:32)
[2017-03-17] MEDS: CLINDAMYCIN 300 MG PREMIX IVPB 50 ML IVPB SCH ×5 (02:12→22:32)
[2017-03-17] MEDS: PIPERACILLIN/TAZOB 2.25 GM 50 ML IVPB SCH ×5 (02:14→21:45)
[2017-03-17] MEDS ORDERED: HEMOQUE TEST 1 EACH EACH ONE ×2 (02:58→03:07)
[2017-03-17 06:02] LABS: BASOPHIL 1.5 % (0-2.0); EOSINOPHIL 10.8 % (0-4.5); MCH 31.2 pg (25.7-33.7); MCHC 35.5 g/dl (32.0-35.9); MEAN CELL VOLUME 87.8 fl (80-96); MEAN PLT VOLUME 7.7 fl (7.5-11.1); NEUTROPHILS 66.4 % (42.8-82.8); PLATELET COUNT 201 K/MM3 (134-434); RDW 16.7 % (11.9-15.9); WHITE BLOOD COUNT 10.4 K/mm3 (4.0-10.0)
[2017-03-17] MEDS: INSULIN SLIDING SCALE (NOVOLOG) 1 VIAL SQ SCH ×3 (06:22→17:16)
[2017-03-17] MEDS: ACETAMINOPHEN 325 MG TABLET (FP) PO PRN ×2 (06:24→21:44)
[2017-03-17] MEDS: oxyCODONE HCL 5 MG TABLET PO PRN ×3 (06:25→21:52)
--- NOTE | 2017-03-17 06:48 | PN ---
Progress Note (short form) - Note Progress Note: Chief Complaint: Events noted, notes reviewed, awake and alert extubated, denies any chest pain or dyspnea, off of pressors remains on IV Heparin, sinus rhythm is noted History of Present Illness: Seen and examined in the ICU. Events noted, notes reviewed, awake and alert extubated, denies any chest pain or dyspnea, off of pressors remains on IV Heparin, sinus rhythm is noted As outlined probably his clinical presentation was related to acute pulmonary edema/volume overload/respiratory acidosis in conjunction metabolic acidosis and eventual cardiac arrest/PEA (profound acidosis) Echocardiography report noted, severe LV systolic dysfunction, new in comparison to prior study, plan to proceed with CHEN for further evaluation of LV function, valvular pathology including possible vegitation Echocardiography dated 02/26/2017 was technically sub-optimal study which revealed Normal LV and RV size and function and no significant valvular pathology - Current Medication List Current Medications Acetaminophen (Tylenol -) 650 mg PO Q4H PRN PRN Reason: PAIN Last Admin: 03/17/17 06:24 Dose: 650 mg Allopurinol (Zyloprim -) 100 mg PO DAILY [facility] Last Admin: 03/16/17 14:17 Dose: 100 mg Atorvastatin Calcium (Lipitor -) 40 mg PO HS [facility] Last Admin: 03/16/17 21:42 Dose: 40 mg Cholecalciferol (Vitamin D3 -) 2,000 unit PO DAILY [facility] Last Admin: 03/16/17 14:16 Dose: 1,000 unit Heparin Sodium (Porcine) (Heparin -) 1,000 unit IVPUSH PRN PRN PRN Reason: Heparin Heparin Sodium (Porcine) (Heparin -) 5,000 unit IVPUSH PRN PRN PRN Reason: Heparin Hydrocortisone (Hytone 1% Cream -) 1 applic TP BID PRN PRN Reason: FOR ITCHING Last Admin: 03/16/17 14:25 Dose: 1 applic IV Flush (Picc Line Flush) 8 ml IVPUSH PRN PRN PRN Reason: Protocol Heparin Sodium/Dextrose (Heparin Infusion -) 500 mls @ 20 mls/hr IVPB TITR [facility] ; 1,000 UNITS/HR PRN Reason: Protocol Last Titration: 03/17/17 02:43 Dose: 0 units/hr Piperacillin Sod/Tazobactam Sod (Zosyn 2.25gm Ivpb (Pre-Docked)) 50 mls @ 100 mls/hr IVPB Q6H-IV [facility] PRN Reason: Protocol Last Admin: 03/17/17 02:14 Dose: 100 mls/hr Nafcillin Sodium 2 gm/ (Dextrose) 100 mls @ 100 mls/hr IVPB Q4H-IV [facility] PRN Reason: Protocol Last Admin: 03/17/17 06:22 Dose: 100 mls/hr Clindamycin Phosphate (Cleocin 300 Mg Premix Ivpb) 50 mls @ 104 mls/hr IVPB Q6H -IV [facility] Last Admin: 03/17/17 02:12 Dose: 104 mls/hr Insulin Aspart (Novolog Vial Sliding Scale -) 1 vial SQ TIDAC [facility] PRN Reason: Protocol Last Admin: 03/17/17 06:22 Dose: Not Given Ondansetron HCl (Zofran Injection) 4 mg IVPB Q8H PRN PRN Reason: NAUSEA Oxycodone HCl (Roxicodone -) 10 mg PO Q4H PRN PRN Reason: PAIN Last Admin: 03/17/17 06:25 Dose: 10 mg Pantoprazole Sodium (Protonix -) 40 mg PO DAILY [facility] Last Admin: 03/16/17 14:12 Dose: 40 mg Polyethylene Glycol (Miralax (For Daily Use) -) 17 gm PO DAILY [facility] Last Admin: 03/16/17 11:59 Dose: Not Given Sevelamer Carbonate (Renvela -) 800 mg PO TIDCM [facility] Last Admin: 03/16/17 18:08 Dose: 800 mg Vitamin E (Vitamin E -) 400 unit PO DAILY [facility] Last Admin: 03/16/17 11:58 Dose: Not Given Review of Systems - Review of Systems Constitutional: no symptoms reported Respiratory: reports: Cough denies: Sputum Production Cardiovascular: as noted above Gastrointestinal: denies Nausea, Vomiting, Diarrhea, Constipation or Abdominal Pain Genitourinary: No symptoms reported Musculoskeletal: No symptoms reported Endocrine: No symptoms reported - Objective Vital Signs: Last Vital Signs Temp Pulse Resp BP Pulse Ox 99.4 F 82 16 140/64 97 03/17/17 02:00 03/17/17 04:00 03/17/17 04:00 03/17/17 04:00 03/16/17 22:00 Intake & Output 03/14/17 03/15/17 03/16/17 09/26/17 23:59 23:59 23:59 23:59 Intake Total 5675 167 1230 Output Total 850 200 185 Balance 6699 259 2087 Weight 263 lb 6 oz 261 lb 9.6 oz 254 lb 8 oz Constitutional: Intubated Neck: Supple Negative JVD Cardiovascular: S1 S2 Regular Rate and Rhythm, Grade 1-2/6 Systolic Ejection Murmur Respiratory: Diminished at the Bases Bilaterally Gastrointestinal: Protuberant, Normal Bowel Sounds Ext: 2+ Edema Labs: CBC, BMP 03/17/17 05:40 03/17/17 05:40 ABG Results ABG pH 7.38 (7.35-7.45) D 03/15/17 21:20 ABG pCO2 at Pt Temp 40.0 mmHg (35-45) D 03/15/17 21:20 ABG pO2 at Pt Temp 133.0 mmHg (70-100) H D 03/15/17 21:20 ABG HCO3 23.1 meq/L (22-26) 03/15/17 21:20 ABG O2 Sat (Measured) 98.9 % (90-98.9) 03/15/17 21:20 ABG O2 Content 13.6 % vol (15-22) L 03/15/17 21:20 ABG Base Excess -1.3 meq/l (-2-2) 03/15/17 21:20 Assessment/Plan ASSESSMENT: 1. Cardiopulmonary arrest with PEA (pulse-less Electrical Activity) post resuscitation, respiratory failure/extubated 2. Abnormal EKG, right axis deviation with RSCD (unclear underlying atrial rhythm), resolved most likely related profound metabolic acidosis, resolved acidosis 3. CAD post WV/CABG angina pectoris with evidence of demand ischemic injury in context of acute pulmonary edema 4. LV systolic dysfunction with acute class III-IV NYHA classification LV failure, acute pulmonary edema, resolving 5. Acute renal failure on HD 6. Anemia, recent GI bleed related to peptic ulcer disease, post transfusion 7. HTN, hypotension resolved off of pressors 8. DM 9. Hypercholesterolemia 10. Recent sepsis syndrome with septic shock PLAN: 1. Probably defer Chest CTA since PTE is unlikely clinically, will discuss with critical care team 2. Continue IV Heparin with caution (recent GI bleed), ideally should be on ASA+ /- Plavix but to be deferred related to the recent GI bleed, will discuss with GI service 3. HD as per the renal service 4. Initiate Coreg hemodynamics permitting 5. Transfusion prn to maintain Hg equal or > 8.0 6. To proceed with CHEN this AM as outlined above Condition parised Denny Mahoney M.D.
[2017-03-17 06:51] LABS: ALBUMIN 1.2 g/dl (3.4-5.0); ANION GAP 11 (8-16); BILIRUBIN,TOTAL 7.9 mg/dL (0.2-1.0); CALCIUM 7.8 mg/dL (8.5-10.1); CO2 30 mmol/L (21-32); CREATININE 5.8 mg/dL (0.7-1.3); GLUCOSE,RANDOM 106 mg/dL (74-106); MAGNESIUM 2.1 mg/dL (1.8-2.4); TOT PROT 5.5 g/dl (6.4-8.2)
[2017-03-17 06:56] LABS: ALK PHOS 90 U/L (45-117)
[2017-03-17 06:59] LABS: SGOT/AST 1579 U/L (15-37); SGPT/ALT 750 U/L (12-78)
[2017-03-17] MEDS: HEPARIN INFUSION - 500 ML IVPB SCH (07:00)
[2017-03-17] MEDS ORDERED: LIDOCAINE VISCOUS 2% ORAL/TOP 20 ML UNIT-DOSE CUP MM ONE (07:53)
--- NOTE | 2017-03-17 08:46 | PN ---
Progress Note (short form) - Note Progress Note: Cardiology Procedure note: After informed consent for CHEN explaining risk not limited to esophageal injury , bleeding, CHEN informed under sedation with Propofol, patient tolerated procedure well, preliminary results: 1. LV wall motion abnormality with moderate reduction in LV EF, estimated between 35-40% 2. MAC 3. Normal Mitral valve leaflets with no vegitation, trace to mild MR 4. AV sclerosis with no vegitation, no AI 5. Normal Tricuspid leaflets with no vegitation, mild TR 6. Faintly visualized Pulmonic valve with no vegitation 7. Intact atrial sepatum with no intra-cardiac shunting by color flow 8. Mild to degree of layered athero-sclerosis in the descending thoracic aorta and the distal thoracic arch NPO for 2 hour Coreg as ordered Initiate ACEI or ARBS with caution Discussed in detail with the patient and Denny Mahoney M.D.
[2017-03-17] MEDS ORDERED: PT OWN MED DRAWER 7, Y5N ONE ×4 (10:01→21:27)
[2017-03-17] MEDS: SEVELAMER CARBONATE 800 MG TAB (FP) PO SCH ×4 (10:13→17:56)
[2017-03-17] MEDS: VITAMIN E 400 INTERNATIONAL-UNITS CAPSULE (FP) PO SCH (10:14)
[2017-03-17] MEDS: PANTOPRAZOLE 40 MG TABLET (FP) PO SCH (10:14)
[2017-03-17] MEDS: CARVEDILOL 3.125 MG TABLET (FP) PO SCH ×2 (10:14→21:45)
[2017-03-17] MEDS: CHOLECALCIFEROL (VITAMIN D3) 1,000 UNIT TABLET (FP) PO SCH (10:15)
[2017-03-17] MEDS: ALLOPURINOL 100 MG TABLET (FP) PO SCH (10:15)
[2017-03-17] MEDS: POLYETHYLENE GLYCOL 3350 119 GM BTL PO SCH (10:17)
--- NOTE | 2017-03-17 10:36 | PN ---
Progress Note (short form) - Note Progress Note: Renal Follow up for JOE Pt seen and examined in the ICU awake and alert extubated off pressers denies any sob, chest pain, abd pain, N/V/D s/p HD yesterday with 3.5kg UF Vital Signs Temperature 99.3 F 03/17/17 08:27 Pulse Rate 87 03/17/17 08:27 Respiratory Rate 18 03/17/17 08:27 Blood Pressure 120/51 03/17/17 08:27 O2 Sat by Pulse Oximetry (%) 97 03/16/17 22:00 Intake & Output 03/14/17 03/15/17 03/16/17 03/17/17 23:59 23:59 23:59 23:59 Intake Total 1596 812 5243 498 Output Total 850 200 185 0 Balance 1437 953 6314 498 Weight 263 lb 6 oz 261 lb 9.6 oz 254 lb 8 oz Gen: NAD CVS: RRR Lungs: CTA Abd: soft NT/ND Ext: No LE edema, left wrist and hand swollen, eyrthema improved CBC, BMP 03/17/17 05:40 03/17/17 05:40 Current Medications Acetaminophen (Tylenol -) 650 mg PO Q4H PRN PRN Reason: PAIN Last Admin: 03/17/17 06:24 Dose: 650 mg Allopurinol (Zyloprim -) 100 mg PO DAILY [facility] Last Admin: 03/17/17 10:15 Dose: 100 mg Atorvastatin Calcium (Lipitor -) 40 mg PO HS [facility] Last Admin: 03/16/17 21:42 Dose: 40 mg Carvedilol (Coreg -) 3.125 mg PO BID [facility] Last Admin: 03/17/17 10:14 Dose: 3.125 mg Cholecalciferol (Vitamin D3 -) 2,000 unit PO DAILY [facility] Last Admin: 03/17/17 10:15 Dose: 2,000 unit Heparin Sodium (Porcine) (Heparin -) 1,000 unit IVPUSH PRN PRN PRN Reason: Heparin Heparin Sodium (Porcine) (Heparin -) 5,000 unit IVPUSH PRN PRN PRN Reason: Heparin Hydrocortisone (Hytone 1% Cream -) 1 applic TP BID PRN PRN Reason: FOR ITCHING Last Admin: 03/16/17 14:25 Dose: 1 applic IV Flush (Picc Line Flush) 8 ml IVPUSH PRN PRN PRN Reason: Protocol Heparin Sodium/Dextrose (Heparin Infusion -) 500 mls @ 20 mls/hr IVPB TITR [facility] ; 1,000 UNITS/HR PRN Reason: Protocol Last Titration: 03/17/17 02:43 Dose: 0 units/hr Piperacillin Sod/Tazobactam Sod (Zosyn 2.25gm Ivpb (Pre-Docked)) 50 mls @ 100 mls/hr IVPB Q6H-IV [facility] PRN Reason: Protocol Last Admin: 03/17/17 08:58 Dose: 100 mls/hr Nafcillin Sodium 2 gm/ (Dextrose) 100 mls @ 100 mls/hr IVPB Q4H-IV [facility] PRN Reason: Protocol Last Admin: 03/17/17 06:22 Dose: 100 mls/hr Clindamycin Phosphate (Cleocin 300 Mg Premix Ivpb) 50 mls @ 104 mls/hr IVPB Q6H -IV [facility] Last Admin: 03/17/17 10:02 Dose: 104 mls/hr Insulin Aspart (Novolog Vial Sliding Scale -) 1 vial SQ TIDAC [facility] PRN Reason: Protocol Last Admin: 03/17/17 06:22 Dose: Not Given Ondansetron HCl (Zofran Injection) 4 mg IVPB Q8H PRN PRN Reason: NAUSEA Oxycodone HCl (Roxicodone -) 10 mg PO Q4H PRN PRN Reason: PAIN Last Admin: 03/17/17 06:25 Dose: 10 mg Pantoprazole Sodium (Protonix -) 40 mg PO DAILY [facility] Last Admin: 03/17/17 10:14 Dose: 40 mg Polyethylene Glycol (Miralax (For Daily Use) -) 17 gm PO DAILY [facility] Last Admin: 03/17/17 10:17 Dose: 17 gm Sevelamer Carbonate (Renvela -) 800 mg PO TIDCM [facility] Last Admin: 03/17/17 10:13 Dose: 800 mg Vitamin E (Vitamin E -) 400 unit PO DAILY [facility] Last Admin: 03/17/17 10:14 Dose: 400 unit A/P 71 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 #PEA Arrest/Resp Failure ECHO shows reduced LVEF Doppler of LE negative pt now extubated ICU follow up #Oliguric Renal Failure with volume overload remains oliguric, likely suffered second injury to kidney with hypoprofusion during arrest can d/c willett fluid restriction of 1L daily for Isolated UF today with 2.5kg removal Hd tomorrow trend BUN/Cr and urine output #Anemia trend cbc, transfuse to keep hgb > 8 Aubrey Acharya DO Problem List - Problems (1) Cellulitis Code(s): L03.90 - CELLULITIS, UNSPECIFIED Qualifiers: Site of cellulitis: extremity Site of cellulitis of extremity: upper extremity Laterality: left Qualified Code(s): L03.114 - Cellulitis of left upper limb (2) Acute renal failure (ARF) Code(s): N17.9 - ACUTE KIDNEY FAILURE, UNSPECIFIED (3) CAD (coronary artery disease) Code(s): I25.10 - ATHSCL HEART DISEASE OF [place] CORONARY ARTERY W/O ANG PCTRS (4) Hypertension Code(s): I10 - ESSENTIAL (PRIMARY) HYPERTENSION (5) Gout Code(s): M10.9 - GOUT, UNSPECIFIED (6) Leukocytosis Code(s): D72.829 - ELEVATED WHITE BLOOD CELL COUNT, UNSPECIFIED
--- NOTE | 2017-03-17 12:22 | PN ---
Teaching Attending Note Name of Resident: Hitesh Wooten ATTENDING PHYSICIAN STATEMENT I saw and evaluated the patient. I reviewed the resident's note and discussed the case with the resident. I agree with the resident's findings and plan as documented. SUBJECTIVE: Pt seen and examined in the ICU. Extubated yesterday without incident. Off pressors. Breathing improving. Left hand pain improving. Febrile yesterday but fever curve trending down. CHEN done this AM confirming LV hypokinesis, moderate reduction of EF. OBJECTIVE: Last Vital Signs Temp Pulse Resp BP Pulse Ox 99.3 F 87 18 120/51 97 03/17/17 08:27 03/17/17 08:27 03/17/17 08:27 03/17/17 08:27 03/16/17 22:00 Intake & Output 03/14/17 03/15/17 03/16/17 03/17/17 23:59 23:59 23:59 23:59 Intake Total 5478 693 5865 498 Output Total 850 200 185 0 Balance 2421 466 8171 498 Weight 263 lb 6 oz 261 lb 9.6 oz 254 lb 8 oz Gen: less tachypneic Heart: RRR Lung: decreased breath sounds at the bases Abd: soft, nontender Ext: + edema CBC, BMP 03/17/17 05:40 03/17/17 05:40 Active Medications Acetaminophen (Tylenol -) 650 mg PO Q4H PRN PRN Reason: PAIN Last Admin: 03/17/17 06:24 Dose: 650 mg Allopurinol (Zyloprim -) 100 mg PO DAILY [facility] Last Admin: 03/17/17 10:15 Dose: 100 mg Atorvastatin Calcium (Lipitor -) 40 mg PO HS [facility] Last Admin: 03/16/17 21:42 Dose: 40 mg Carvedilol (Coreg -) 3.125 mg PO BID [facility] Last Admin: 03/17/17 10:14 Dose: 3.125 mg Cholecalciferol (Vitamin D3 -) 2,000 unit PO DAILY [facility] Last Admin: 03/17/17 10:15 Dose: 2,000 unit Heparin Sodium (Porcine) (Heparin -) 1,000 unit IVPUSH PRN PRN PRN Reason: Heparin Heparin Sodium (Porcine) (Heparin -) 5,000 unit IVPUSH PRN PRN PRN Reason: Heparin Hydrocortisone (Hytone 1% Cream -) 1 applic TP BID PRN PRN Reason: FOR ITCHING Last Admin: 03/16/17 14:25 Dose: 1 applic IV Flush (Picc Line Flush) 8 ml IVPUSH PRN PRN PRN Reason: Protocol Heparin Sodium/Dextrose (Heparin Infusion -) 500 mls @ 20 mls/hr IVPB TITR [facility] ; 1,000 UNITS/HR PRN Reason: Protocol Last Titration: 03/17/17 02:43 Dose: 0 units/hr Piperacillin Sod/Tazobactam Sod (Zosyn 2.25gm Ivpb (Pre-Docked)) 50 mls @ 100 mls/hr IVPB Q6H-IV [facility] PRN Reason: Protocol Last Admin: 03/17/17 08:58 Dose: 100 mls/hr Nafcillin Sodium 2 gm/ (Dextrose) 100 mls @ 100 mls/hr IVPB Q4H-IV [facility] PRN Reason: Protocol Last Admin: 03/17/17 06:22 Dose: 100 mls/hr Clindamycin Phosphate (Cleocin 300 Mg Premix Ivpb) 50 mls @ 104 mls/hr IVPB Q6H -IV [facility] Last Admin: 03/17/17 10:02 Dose: 104 mls/hr Insulin Aspart (Novolog Vial Sliding Scale -) 1 vial SQ TIDAC [facility] PRN Reason: Protocol Last Admin: 03/17/17 06:22 Dose: Not Given Ondansetron HCl (Zofran Injection) 4 mg IVPB Q8H PRN PRN Reason: NAUSEA Oxycodone HCl (Roxicodone -) 10 mg PO Q4H PRN PRN Reason: PAIN Last Admin: 03/17/17 06:25 Dose: 10 mg Pantoprazole Sodium (Protonix -) 40 mg PO DAILY [facility] Last Admin: 03/17/17 10:14 Dose: 40 mg Polyethylene Glycol (Miralax (For Daily Use) -) 17 gm PO DAILY [facility] Last Admin: 03/17/17 10:17 Dose: 17 gm Sevelamer Carbonate (Renvela -) 800 mg PO TIDCM [facility] Last Admin: 03/17/17 10:13 Dose: 800 mg Torsemide (Demadex -) 40 mg PO DAILY [facility] Vitamin E (Vitamin E -) 400 unit PO DAILY [facility] Last Admin: 03/17/17 10:14 Dose: 400 unit ASSESSMENT AND PLAN: s/p Cardiopulmonary Arrest Metabolic/Lactic Acidosis Acute Kidney Injury requiring HD +Troponins/CAD/r/o ACS/NSTEMI Pneumonia Shock - Favor Septic vs Cardiogenic Acute on Chronic LV Systolic/Diastolic Heart Failure Staph Bacteremia HTN DM Recent GI Bleed - HD per renal with ultrafiltration - monitor urine output, creatinine - I/Os, daily weights - antibiotics per ID - f/u pending cultures - heparin gtt - monitor H/H - DVT/GI prophylaxis - continue ICU monitoring - discussed with at bedside critical care time spent in reviewing chart, evaluating patient and formulating plan 35 min
[2017-03-17] MEDS: TORSEMIDE 20 MG TABLET (FP) PO SCH (13:09)
--- NOTE | 2017-03-17 13:33 | PN ---
Physical Exam: SUBJECTIVE: 71 yo M with h/o CAD, NV, CABG, who presented to ED with left wrist cellulitis complicated with acute on chronic renal failure s/p dialysis. Became unresponsive ( 03/15) and in respiratory arrest. Following transport to ICU pt. developed PEA and underwent successful cardiac resuscitation. This AM pt has no complaints. No acute events overnight. Denies chest pain or difficulty with breathing. No N/V, constipation/diarrhea. States that he is having improvement with left wrist cellulitis and range of motion in hand. Patient concerned about willett catheter associated infections. Pt. denies pain at catheter insertion site, fevers, or chills. OBJECTIVE: Vital Signs Period Temp Pulse Resp BP Sys/Resendez Pulse Ox Last 24 Hr 99.2 F-101.3 F 80-97 15-26 108-153/44-76 97-100 GENERAL: The patient is awake, alert, and fully oriented, in no acute distress. HEAD: Normal with no signs of trauma. EYES: PERRL, extraocular movements intact, sclera anicteric, conjunctiva clear. No ptosis. ENT: Ears normal, nares patent, oropharynx clear without exudates, moist mucous membranes. NECK: Trachea midline, full range of motion, supple. LUNGS: Breath sounds equal, clear to auscultation bilaterally, no wheezes, no crackles, no accessory muscle use. HEART: Regular rate and rhythm, S1, S2 without murmur, rub or gallop. ABDOMEN: Soft, nontender, nondistended, normoactive bowel sounds, no guarding, no rebound, no hepatosplenomegaly, no masses. EXTREMITIES:+ BL LE tibial erythema and warmth. absent crepitus and fluctuance. 2+ pulses, warm, well-perfused, no edema. NEUROLOGICAL: Cranial nerves II through XII grossly intact. Normal speech, gait not observed. PSYCH: Normal mood, normal affect. SKIN: Warm, dry, normal turgor, no rashes or lesions noted Laboratory Results - last 24 hr 03/15/17 03/16/17 03/16/17 17:08 01:50 11:44 WBC RBC Hgb Hct MCV MCH MCHC RDW Plt Count MPV Neutrophils % Lymphocytes % Monocytes % Eosinophils % Basophils % PTT (Actin FS) Sodium Potassium Chloride Carbon Dioxide Anion Gap BUN Creatinine Creat Clearance w eGFR POC Glucometer [phone] Random Glucose Calcium Phosphorus Magnesium Total Bilirubin AST ALT Alkaline Phosphatase Troponin I Total Protein Albumin Urine Color Yellow Urine Appearance Cloudy Urine pH 5.0 Ur Specific [place] 1.020 Urine Protein 3+ H Urine Glucose (UA) 1+ H Urine Ketones Negative Urine Blood 2+ H Urine Nitrite Negative Urine Bilirubin Negative Urine Urobilinogen Negative Urine RBC 36 Urine WBC 5 Amorphous Urates Moderate Hyaline Casts 1 Urine Mucus Rare 03/16/17 03/16/17 03/17/17 14:45 16:49 02:00 WBC RBC Hgb Hct MCV MCH MCHC RDW Plt Count MPV Neutrophils % Lymphocytes % Monocytes % Eosinophils % Basophils % PTT (Actin FS) 134.7 H D 101.7 H Sodium Potassium Chloride Carbon Dioxide Anion Gap BUN Creatinine Creat Clearance w eGFR POC Glucometer [phone] Random Glucose Calcium Phosphorus Magnesium Total Bilirubin AST ALT Alkaline Phosphatase Troponin I Total Protein Albumin Urine Color Urine Appearance Urine pH Ur Specific [place] Urine Protein Urine Glucose (UA) Urine Ketones Urine Blood Urine Nitrite Urine Bilirubin Urine Urobilinogen Urine RBC Urine WBC Amorphous Urates Hyaline Casts Urine Mucus 03/17/17 03/17/17 03/17/17 05:40 05:40 06:30 WBC 10.4 H D RBC 2.56 L Hgb 8.0 L D Hct 22.5 L D MCV 87.8 MCH 31.2 MCHC 35.5 RDW 16.7 H Plt Count 201 D MPV 7.7 Neutrophils % 66.4 Lymphocytes % 12.4 D Monocytes % 8.9 Eosinophils % 10.8 H D Basophils % 1.5 D PTT (Actin FS) Sodium 132 L Potassium 3.7 Chloride 91 L Carbon Dioxide 30 Anion Gap 11 BUN 49 H Creatinine 5.8 H Creat Clearance w eGFR 9.72 POC Glucometer Random Glucose 106 D Calcium 7.8 L Phosphorus 6.0 H Magnesium 2.1 Total Bilirubin 7.9 H AST 1579 H ALT 750 H D Alkaline Phosphatase 90 Troponin I 1.99 H* D Total Protein 5.5 L Albumin 1.2 L Urine Color Urine Appearance Urine pH Ur Specific [place] Urine Protein Urine Glucose (UA) Urine Ketones Urine Blood Urine Nitrite Urine Bilirubin Urine Urobilinogen Urine RBC Urine WBC Amorphous Urates Hyaline Casts Urine Mucus 03/17/17 08:40 WBC RBC Hgb Hct MCV MCH MCHC RDW Plt Count MPV Neutrophils % Lymphocytes % Monocytes % Eosinophils % Basophils % PTT (Actin FS) 62.5 H D Sodium Potassium Chloride Carbon Dioxide Anion Gap BUN Creatinine Creat Clearance w eGFR POC Glucometer Random Glucose Calcium Phosphorus Magnesium Total Bilirubin AST ALT Alkaline Phosphatase Troponin I Total Protein Albumin Urine Color Urine Appearance Urine pH Ur Specific [place] Urine Protein Urine Glucose (UA) Urine Ketones Urine Blood Urine Nitrite Urine Bilirubin Urine Urobilinogen Urine RBC Urine WBC Amorphous Urates Hyaline Casts Urine Mucus Active Medications Generic Name Dose Route Start Last Admin Trade Name Freq PRN Reason Stop Dose Admin Acetaminophen 650 mg 03/06/17 16:21 03/17/17 06:24 Tylenol - PO 650 mg Q4H PRN Administration PAIN Allopurinol 100 mg 03/07/17 10:00 03/17/17 10:15 Zyloprim - PO 100 mg DAILY PAULINA Administration Atorvastatin Calcium 40 mg 03/06/17 22:00 03/16/17 21:42 Lipitor - PO 40 mg HS PAULINA Administration Carvedilol 3.125 mg 03/17/17 10:00 03/17/17 10:14 Coreg - PO 3.125 mg BID PAULINA Administration Cholecalciferol 2,000 unit 03/07/17 10:00 03/17/17 10:15 Vitamin D3 - PO 2,000 unit DAILY PAULINA Administration Heparin Sodium (Porcine) 1,000 unit 03/15/17 16:14 Heparin - IVPUSH PRN PRN Heparin Heparin Sodium (Porcine) 5,000 unit 03/15/17 16:14 Heparin - IVPUSH PRN PRN Heparin Hydrocortisone 1 applic 03/12/17 09:05 03/16/17 14:25 Hytone 1% Cream - TP 1 applic BID PRN Administration FOR ITCHING IV Flush 8 ml 03/13/17 20:23 Picc Line Flush IVPUSH PRN PRN Protocol Heparin Sodium/Dextrose 500 mls @ 20 mls/hr 03/15/17 16:15 03/17/17 02:43 Heparin Infusion - IVPB 0 units/hr TITR PAULINA Titration Protocol 1,000 UNITS/HR Piperacillin Sod/Tazobactam Sod 50 mls @ 100 mls/hr 03/16/17 10:45 03/17/17 08: 58 Zosyn 2.25gm Ivpb (Pre-Docked) IVPB 100 mls/hr Q6H-IV PAULINA Administration Protocol Nafcillin Sodium 2 gm/ 100 mls @ 100 mls/hr 03/16/17 14:45 03/17/17 11:30 Dextrose IVPB 100 mls/hr Q4H-IV PAULINA Administration Protocol Clindamycin Phosphate 50 mls @ 104 mls/hr 03/16/17 15:00 03/17/17 10:02 Cleocin 300 Mg Premix Ivpb IVPB 104 mls/hr Q6H-IV PAULINA Administration Insulin Aspart 1 vial 03/06/17 16:30 03/17/17 13:03 Novolog Vial Sliding Scale - SQ Not Given TIDAC PAULINA Protocol Ondansetron HCl 4 mg 03/06/17 16:21 Zofran Injection IVPB Q8H PRN NAUSEA Oxycodone HCl 10 mg 03/16/17 13:15 03/17/17 06:25 Roxicodone - PO 10 mg Q4H PRN Administration PAIN Pantoprazole Sodium 40 mg 03/12/17 10:00 03/17/17 10:14 Protonix - PO 40 mg DAILY PAULINA Administration Polyethylene Glycol 17 gm 03/07/17 10:00 03/17/17 10:17 Miralax (For Daily Use) - PO 17 gm DAILY PAULINA Administration Sevelamer Carbonate 800 mg 03/07/17 12:00 03/17/17 13:08 Renvela - PO 800 mg TIDCM PAULINA Administration Torsemide 40 mg 03/17/17 10:45 03/17/17 13:09 Demadex - PO 40 mg DAILY PAULINA Administration Vitamin E 400 unit 03/07/17 10:00 03/17/17 10:14 Vitamin E - PO 400 unit DAILY PAULINA Administration ASSESSMENT/PLAN: 71 yo M with h/o CAD, NV, CABG, who presented to ED with left wrist cellulitis complicated with acute on chronic renal failure s/p dialysis. Became unresponsive ( 03/15) and in respiratory arrest. Following transport to ICU pt. developed PEA and underwent successful cardiac resuscitation. Resp Failure: 2/2 volume overload vs. PE vs. cardiac event Taper Levophed as tolerated Cardiac: Echo (03/16) reveals severe systolic dysfunction with decreased EF compared to previous study.Most likely 2/2 cardiac arrest. CHEN ( 03/17) Defer CTA for low suspicion of PT GI: Transaminitis AST/ALT 1579/750 most likely 2/2 hypoperfusion from cardiac arrest. Transient liver injury. Hold Lipitor ( 03/17) Oliguric renal failure with volume overload: 2/2 to kidney injury following hypoperfusion with cardiac arrest. Currently getting dialysis Consider CVHHD in setting of volume overload and pressor dependence D/c willett catheter (03/17) [address] on renal diet ( 03/17) Trend BUN/Cr output Anemia: s/p PRBC transfusion DVT/GI PPx Heparin drip Dispo: Patient and pt. decline transfer to OSH. Visit type - Emergency Visit Emergency Visit: Yes ED Registration Date: 02/25/17 Care time: The patient presented to the Emergency Department on the above date and was hospitalized for further evaluation of their emergent condition. - New Patient This patient is new to me today: No - Critical Care Critical Care patient: Yes Total Critical Care Time (in minutes): 30 Critical Care Statement: The care of this patient involved high complexity decision making to prevent further life threatening deterioration of the patient 's condition and/or to evaluate & treat vital organ system(s) failure or risk of failure.
--- NOTE | 2017-03-17 14:48 | EKG ---
Test Reason : Blood Pressure : / mmHG Vent. Rate : 088 BPM Atrial Rate : 088 BPM P-R Int : 162 ms QRS Dur : 100 ms QT Int : 456 ms P-R-T Axes : 031 001 108 degrees QTc Int : 551 ms NORMAL SINUS RHYTHM ABNORMAL QRS-T ANGLE, CONSIDER PRIMARY T WAVE ABNORMALITY PROLONGED QT ABNORMAL ECG WHEN COMPARED WITH ECG OF 15-MAR-2017 16:05, SINUS RHYTHM HAS REPLACED WIDE QRS RHYTHM REPEAT EKG IF CLINICALLY INDICATED Confirmed by NATHALIA SHEPHERD MD ([id number] on 03/17/2017 2:47:53 PM Referred By: Confirmed By:NATHALIA SHEPHERD MD
--- NOTE | 2017-03-17 14:50 | EKG ---
Test Reason : Blood Pressure : / mmHG Vent. Rate : 117 BPM Atrial Rate : 085 BPM P-R Int : 000 ms QRS Dur : 132 ms QT Int : 328 ms P-R-T Axes : 000 101 -64 degrees QTc Int : 457 ms WIDE QRS RHYTHM RIGHT BUNDLE BRANCH BLOCK ST-T ABNORMALITIES ABNORMAL ECG WHEN COMPARED WITH ECG OF 15-MAR-2017 14:53, WIDE QRS RHYTHM HAS REPLACED SINUS RHYTHM EKG DONE DURING CODE FOLLOW UP TRACING ARE RECOMMENDED Confirmed by NATHALIA SHEPHERD MD ([id number]) on 03/17/2017 2:50:21 PM Referred By: Confirmed By:NATHALIA SHEPHERD MD
--- NOTE | 2017-03-17 15:20 | PN ---
Progress Note, Physician Chief Complaint: feels better with no pain and SOB. History of Present Illness: Patient recovering from Acute respiratory arrest and probable post event Acute cardiac event. No vegetations but decreased EF on Echo. Receiving dialysis and IV antibiotics. Patient alert but tired. Liver enzymes markedly elevated due to ischemia from hypotensive period at arrest. Patient is still on transfer list to [facility] for possible CVDHD. remains at bedside. - Current Medication List Current Medications: Active Medications Acetaminophen (Tylenol -) 650 mg PO Q4H PRN PRN Reason: PAIN Last Admin: 03/17/17 06:24 Dose: 650 mg Allopurinol (Zyloprim -) 100 mg PO DAILY PAULINA Last Admin: 03/17/17 10:15 Dose: 100 mg Atorvastatin Calcium (Lipitor -) 40 mg PO HS PAULINA Last Admin: 03/16/17 21:42 Dose: 40 mg Carvedilol (Coreg -) 3.125 mg PO BID PAULINA Last Admin: 03/17/17 10:14 Dose: 3.125 mg Cholecalciferol (Vitamin D3 -) 2,000 unit PO DAILY PAULINA Last Admin: 03/17/17 10:15 Dose: 2,000 unit Heparin Sodium (Porcine) (Heparin -) 1,000 unit IVPUSH PRN PRN PRN Reason: Heparin Heparin Sodium (Porcine) (Heparin -) 5,000 unit IVPUSH PRN PRN PRN Reason: Heparin Hydrocortisone (Hytone 1% Cream -) 1 applic TP BID PRN PRN Reason: FOR ITCHING Last Admin: 03/16/17 14:25 Dose: 1 applic IV Flush (Picc Line Flush) 8 ml IVPUSH PRN PRN PRN Reason: Protocol Heparin Sodium/Dextrose (Heparin Infusion -) 500 mls @ 20 mls/hr IVPB TITR PAULINA ; 1,000 UNITS/HR PRN Reason: Protocol Last Titration: 03/17/17 02:43 Dose: 0 units/hr Piperacillin Sod/Tazobactam Sod (Zosyn 2.25gm Ivpb (Pre-Docked)) 50 mls @ 100 mls/hr IVPB Q6H-IV PAULINA PRN Reason: Protocol Last Admin: 03/17/17 08:58 Dose: 100 mls/hr Nafcillin Sodium 2 gm/ (Dextrose) 100 mls @ 100 mls/hr IVPB Q4H-IV PAULINA PRN Reason: Protocol Last Admin: 03/17/17 11:30 Dose: 100 mls/hr Clindamycin Phosphate (Cleocin 300 Mg Premix Ivpb) 50 mls @ 104 mls/hr IVPB Q6H -IV PAULINA Last Admin: 03/17/17 10:02 Dose: 104 mls/hr Insulin Aspart (Novolog Vial Sliding Scale -) 1 vial SQ TIDAC PAULINA PRN Reason: Protocol Last Admin: 03/17/17 13:03 Dose: Not Given Ondansetron HCl (Zofran Injection) 4 mg IVPB Q8H PRN PRN Reason: NAUSEA Oxycodone HCl (Roxicodone -) 10 mg PO Q4H PRN PRN Reason: PAIN Last Admin: 03/17/17 14:22 Dose: 10 mg Pantoprazole Sodium (Protonix -) 40 mg PO DAILY [facility] Last Admin: 03/17/17 10:14 Dose: 40 mg Polyethylene Glycol (Miralax (For Daily Use) -) 17 gm PO DAILY [facility] Last Admin: 03/17/17 10:17 Dose: 17 gm Sevelamer Carbonate (Renvela -) 800 mg PO TIDCM [facility] Last Admin: 03/17/17 13:08 Dose: 800 mg Torsemide (Demadex -) 40 mg PO DAILY [facility] Last Admin: 03/17/17 13:09 Dose: 40 mg Vitamin E (Vitamin E -) 400 unit PO DAILY [facility] Last Admin: 03/17/17 10:14 Dose: 400 unit - Objective Vital Signs: Vital Signs Temperature 99.6 F 03/17/17 14:00 Pulse Rate 85 03/17/17 14:00 Respiratory Rate 25 H 03/17/17 14:00 Blood Pressure 115/59 03/17/17 14:00 O2 Sat by Pulse Oximetry (%) 97 03/16/17 22:00 Constitutional: Yes: Calm Eyes: Yes: Sclera Icterus Cardiovascular: Yes: Regular Rate and Rhythm Respiratory: Yes: Diminished Gastrointestinal: Yes: Soft. No: Tenderness Edema: LLE: 2+, RLE: 2+ Integumentary: Yes: Other (peeling skin and some swellig left wrist but overall moving hand and fingers well.) Neurological: Yes: Alert, Weakness Labs: CBC, BMP 03/17/17 05:40 03/17/17 05:40 INR, PTT INR 1.96 (0.82-1.09) H 03/15/17 21:20 - ....Imaging Chest X-ray: Report Reviewed EKG: Report Reviewed Problem List - Problems (1) Cellulitis Assessment/Plan: Markedly improved left hand ,fingers and wrist. On antibiotics Code(s): L03.90 - CELLULITIS, UNSPECIFIED Qualifiers: Site of cellulitis: extremity Site of cellulitis of extremity: upper extremity Laterality: left Qualified Code(s): L03.114 - Cellulitis of left upper limb (2) GI bleed Assessment/Plan: No recurence from Gastric ulcer; On PPI Code(s): K92.2 - GASTROINTESTINAL HEMORRHAGE, UNSPECIFIED (3) Acute renal failure (ARF) Assessment/Plan: Still requires dialysis. Code(s): N17.9 - ACUTE KIDNEY FAILURE, UNSPECIFIED (4) CAD (coronary artery disease) Assessment/Plan: Troponin markedly lower today. Hx. CABG X2 Code(s): I25.10 - ATHSCL HEART DISEASE OF [place] CORONARY ARTERY W/O ANG PCTRS (5) Gout Assessment/Plan: On Rx. Code(s): M10.9 - GOUT, UNSPECIFIED (6) Hypertension Assessment/Plan: BP excellent. Code(s): I10 - ESSENTIAL (PRIMARY) HYPERTENSION (7) Anemia Assessment/Plan: 8GM. today. Code(s): D64.9 - ANEMIA, UNSPECIFIED (8) Leukocytosis Assessment/Plan: nearly back to normal. Code(s): D72.829 - ELEVATED WHITE BLOOD CELL COUNT, UNSPECIFIED (9) Respiratory arrest before cardiac arrest Code(s): I46.9 - CARDIAC ARREST, CAUSE UNSPECIFIED R09.2 - RESPIRATORY ARREST (10) Respiratory arrest Assessment/Plan: patient recovering with post arrest lethargy and elevated troponin and liver chemistries. Code(s): R09.2 - RESPIRATORY ARREST
[2017-03-17 17:10] LABS: MCH 31.2 pg (25.7-33.7); MCHC 35.3 g/dl (32.0-35.9); MEAN CELL VOLUME 88.4 fl (80-96); MEAN PLT VOLUME 8.1 fl (7.5-11.1); PLATELET COUNT 213 K/MM3 (134-434); RDW 16.7 % (11.9-15.9); WHITE BLOOD COUNT 10.4 K/mm3 (4.0-10.0)
--- NOTE | 2017-03-17 19:08 | PN ---
Progress Note, Physician History of Present Illness: improving much better much more awake and alert dialysis being continued - Current Medication List Current Medications: Active Medications Acetaminophen (Tylenol -) 650 mg PO Q4H PRN PRN Reason: PAIN Last Admin: 03/17/17 06:24 Dose: 650 mg Allopurinol (Zyloprim -) 100 mg PO DAILY PAULINA Last Admin: 03/17/17 10:15 Dose: 100 mg Atorvastatin Calcium (Lipitor -) 40 mg PO HS PAULINA Last Admin: 03/16/17 21:42 Dose: 40 mg Carvedilol (Coreg -) 3.125 mg PO BID PAULINA Last Admin: 03/17/17 10:14 Dose: 3.125 mg Cholecalciferol (Vitamin D3 -) 2,000 unit PO DAILY PAULINA Last Admin: 03/17/17 10:15 Dose: 2,000 unit Heparin Sodium (Porcine) (Heparin -) 1,000 unit IVPUSH PRN PRN PRN Reason: Heparin Heparin Sodium (Porcine) (Heparin -) 5,000 unit IVPUSH PRN PRN PRN Reason: Heparin Hydrocortisone (Hytone 1% Cream -) 1 applic TP BID PRN PRN Reason: FOR ITCHING Last Admin: 03/16/17 14:25 Dose: 1 applic IV Flush (Picc Line Flush) 8 ml IVPUSH PRN PRN PRN Reason: Protocol Heparin Sodium/Dextrose (Heparin Infusion -) 500 mls @ 20 mls/hr IVPB TITR PAULINA ; 1,000 UNITS/HR PRN Reason: Protocol Last Titration: 03/17/17 09:30 Dose: 400 units/hr Piperacillin Sod/Tazobactam Sod (Zosyn 2.25gm Ivpb (Pre-Docked)) 50 mls @ 100 mls/hr IVPB Q6H-IV PAULINA PRN Reason: Protocol Last Admin: 03/17/17 16:23 Dose: 100 mls/hr Nafcillin Sodium 2 gm/ (Dextrose) 100 mls @ 100 mls/hr IVPB Q4H-IV PAULINA PRN Reason: Protocol Last Admin: 03/17/17 19:04 Dose: 100 mls/hr Clindamycin Phosphate (Cleocin 300 Mg Premix Ivpb) 50 mls @ 104 mls/hr IVPB Q6H -IV PAULINA Last Admin: 09/26/17 17:09 Dose: 104 mls/hr Insulin Aspart (Novolog Vial Sliding Scale -) 1 vial SQ TIDAC PAULINA PRN Reason: Protocol Last Admin: 03/17/17 17:16 Dose: Not Given Ondansetron HCl (Zofran Injection) 4 mg IVPB Q8H PRN PRN Reason: NAUSEA Oxycodone HCl (Roxicodone -) 10 mg PO Q4H PRN PRN Reason: PAIN Last Admin: 03/17/17 14:22 Dose: 10 mg Pantoprazole Sodium (Protonix -) 40 mg PO DAILY [facility] Last Admin: 03/17/17 10:14 Dose: 40 mg Polyethylene Glycol (Miralax (For Daily Use) -) 17 gm PO DAILY [facility] Last Admin: 03/17/17 10:17 Dose: 17 gm Sevelamer Carbonate (Renvela -) 800 mg PO TIDCM [facility] Last Admin: 03/17/17 17:56 Dose: 800 mg Torsemide (Demadex -) 40 mg PO DAILY [facility] Last Admin: 03/17/17 13:09 Dose: 40 mg Vitamin E (Vitamin E -) 400 unit PO DAILY [facility] Last Admin: 03/17/17 10:14 Dose: 400 unit - Objective Vital Signs: Vital Signs Temperature 99.8 F H 03/17/17 16:00 Pulse Rate 85 03/17/17 16:24 Respiratory Rate 22 03/17/17 16:24 Blood Pressure 105/59 03/17/17 16:24 O2 Sat by Pulse Oximetry (%) 97 03/16/17 22:00 Constitutional: Yes: No Distress, Calm Cardiovascular: Yes: Regular Rate and Rhythm Respiratory: Yes: Regular, CTA Bilaterally Gastrointestinal: Yes: Normal Bowel Sounds, Soft Musculoskeletal: Yes: WNL Extremities: Yes: Other Edema: LUE: 2+, RUE: 2+, LLE: 2+, RLE: 2+ Neurological: Yes: Alert, Oriented Psychiatric: Yes: Alert, Oriented Labs: CBC, BMP 03/17/17 16:00 03/17/17 05:40 INR, PTT INR 1.96 (0.82-1.09) H 03/15/17 21:20 Assessment/Plan sepsis septic left wrist joint gm positive bacteremia fever tenderness leukocytosis nstemi plan conitnue abx cx reports noted close watch patient currently getting dialysis dylon result noted no evidence of endocarditits close monitoring cc time 40 min
[2017-03-17] MEDS: NITROGLYCERIN 2% OINTMENT - 1GM PACKET TD ONE (20:41)
[2017-03-17] MEDS: NOREPINEPHRINE BITARTRATE 8,000 MCG in DEXTROSE 5%-WATER - 492 ML IV SCH (20:41)
[2017-03-18] MEDS: CLINDAMYCIN 300 MG PREMIX IVPB 50 ML IVPB SCH ×4 (02:27→20:26)
[2017-03-18] MEDS: NAFCILLIN - 2 GM in DEXTROSE 5%-WATER - 100 ML IVPB SCH ×6 (02:28→21:30)
[2017-03-18] MEDS: ACETAMINOPHEN 325 MG TABLET (FP) PO PRN ×2 (02:30→07:22)
[2017-03-18] MEDS: oxyCODONE HCL 5 MG TABLET PO PRN ×3 (02:30→20:25)
[2017-03-18] MEDS: PIPERACILLIN/TAZOB 2.25 GM 50 ML IVPB SCH ×4 (02:31→21:21)
[2017-03-18] MEDS ORDERED: PT OWN MED DRAWER 7, Y5N ONE ×5 (05:35→20:25)
[2017-03-18 06:28] LABS: MCH 31.3 pg (25.7-33.7); MCHC 35.4 g/dl (32.0-35.9); MEAN CELL VOLUME 88.3 fl (80-96); MEAN PLT VOLUME 8.6 fl (7.5-11.1); PLATELET COUNT 203 K/MM3 (134-434); RDW 16.6 % (11.9-15.9); WHITE BLOOD COUNT 9.3 K/mm3 (4.0-10.0)
[2017-03-18] MEDS: INSULIN SLIDING SCALE (NOVOLOG) 1 VIAL SQ SCH ×3 (07:45→17:24)
[2017-03-18 08:28] LABS: ALBUMIN 1.2 g/dl (3.4-5.0); ANION GAP 13 (8-16); BILIRUBIN,TOTAL 8.6 mg/dL (0.2-1.0); CALCIUM 7.7 mg/dL (8.5-10.1); CO2 28 mmol/L (21-32); CREATININE 6.7 mg/dL (0.7-1.3); GLUCOSE,RANDOM 153 mg/dL (74-106); PHOSPHOROUS 7.5 mg/dL (2.5-4.9); TOT PROT 5.2 g/dl (6.4-8.2)
[2017-03-18 08:40] LABS: ALK PHOS 111 U/L (45-117)
[2017-03-18 08:42] LABS: SGPT/ALT 1107 U/L (12-78)
[2017-03-18 08:43] LABS: SGOT/AST 2073 U/L (15-37)
--- NOTE | 2017-03-18 09:08 | PN ---
Progress Note (short form) - Note Progress Note: Patient receiving dialysis now. Still marked total body edema. No urination. No pain and no SOB but at bedrest. Marked elevation liver chem have not improved and renal Lab still not improved. WBC under 10,000. On Exam: Vital Signs Temp 98.2 F 03/18/17 07:25 Pulse 76 03/18/17 08:30 Resp 18 03/18/17 08:30 BP 99/50 03/18/17 08:30 Pulse Ox 94 L 03/17/17 21:00 Intake & Output 03/17/17 03/17/17 03/18/17 11:59 23:59 11:59 Intake Total 498 788 300 Output Total 0 0 0 Balance 498 788 300 Weight 249 lb 3.2 oz Intake: IV 268 88 96 Heparin Infusion - 500 ml 68 88 96 @ 1,000 UNITS/HR 20 mls/ hr IVPB TITR PAULINA Rx#: [id number] IVPB 200 700 204 Oral 30 Output: Urine 0 0 0 Void 0 0 Taylor 0 Other: Voiding Method Indwelling Catheter Bowel Movement No Weight Measurement Method Baby Scale Slightly lethargic Total body edema Abd: distended but nontender Scrotal edema Ext: 3+ pedal edema Abnormal Lab Results 03/17/17 03/17/17 03/17/17 06:30 08:40 16:00 WBC 10.4 H RBC 2.62 L Hgb 8.2 L Hct 23.1 L RDW 16.7 H PTT (Actin FS) 62.5 H D Sodium Chloride BUN Creatinine Random Glucose Calcium Phosphorus Total Bilirubin AST ALT Troponin I 1.99 H* D Total Protein Albumin 03/18/17 03/18/17 03/18/17 05:30 05:30 06:00 WBC RBC 2.40 L Hgb 7.5 L Hct 21.2 L RDW 16.6 H PTT (Actin FS) 64.2 H Sodium 130 L Chloride 89 L BUN 63 H D Creatinine 6.7 H Random Glucose 153 H D Calcium 7.7 L Phosphorus 7.5 H D Total Bilirubin 8.6 H AST 2073 H ALT 1107 H D Troponin I Total Protein 5.2 L Albumin 1.2 L IMP: MSSA sepsis and Cellulitis left hand , wrist and forearm resolved Acute Respiratory arrest Acute cardiac Ischemia Acute renal failure due to sepsis Marked liver enzyme response post Code Total Body edema NIDDM Plan: Dialysis ? BID F/U Lab Reconsult GI Renal MD followup ICU Sit up today S/P CABG X2 Problem List - Problems (1) Cellulitis Code(s): L03.90 - CELLULITIS, UNSPECIFIED Qualifiers: Site of cellulitis: extremity Site of cellulitis of extremity: upper extremity Laterality: left Qualified Code(s): L03.114 - Cellulitis of left upper limb (2) GI bleed Code(s): K92.2 - GASTROINTESTINAL HEMORRHAGE, UNSPECIFIED (3) Acute renal failure (ARF) Code(s): N17.9 - ACUTE KIDNEY FAILURE, UNSPECIFIED (4) CAD (coronary artery disease) Code(s): I25.10 - ATHSCL HEART DISEASE OF [place] CORONARY ARTERY W/O ANG PCTRS (5) Gout Code(s): M10.9 - GOUT, UNSPECIFIED (6) Hypertension Code(s): I10 - ESSENTIAL (PRIMARY) HYPERTENSION (7) Anemia Code(s): D64.9 - ANEMIA, UNSPECIFIED (8) Leukocytosis Code(s): D72.829 - ELEVATED WHITE BLOOD CELL COUNT, UNSPECIFIED (9) Respiratory arrest before cardiac arrest Code(s): I46.9 - CARDIAC ARREST, CAUSE UNSPECIFIED R09.2 - RESPIRATORY ARREST (10) Respiratory arrest Code(s): R09.2 - RESPIRATORY ARREST
[2017-03-18 10:45] LABS: MAGNESIUM 2.3 mg/dL (1.8-2.4)
--- NOTE | 2017-03-18 11:41 | PN ---
Progress Note (short form) - Note Progress Note: Renal Follow up for JOE Pt seen and examined in the ICU currently getting dialysis BP stable, catheter with good flow, pressures WNL goal UF is 3.5L will get 1 PRBC transfused with HD pt awake and alert complains of back discomfort Vital Signs Temperature 97.5 F L 03/18/17 10:00 Pulse Rate 79 03/18/17 11:00 Respiratory Rate 18 03/18/17 11:00 Blood Pressure 121/65 03/18/17 11:00 O2 Sat by Pulse Oximetry (%) 94 L 03/18/17 09:00 Intake & Output 03/15/17 03/16/17 03/17/17 03/18/17 23:59 23:59 23:59 23:59 Intake Total 625 2457 1286 300 Output Total 200 185 0 0 Balance 425 2272 1286 300 Weight 261 lb 9.6 oz 254 lb 8 oz 249 lb 3.2 oz Gen: NAD CVS: RRR Lungs: CTA Abd: soft NT/ND Ext: No LE edema, left wrist and hand swollen, eyrthema improved CBC, BMP 03/18/17 05:30 03/18/17 06:00 Laboratory Tests 03/18/17 06:00 Calcium 7.7 L Phosphorus 7.5 H D Magnesium 2.3 Albumin 1.2 L Current Medications Acetaminophen (Tylenol -) 650 mg PO Q4H PRN PRN Reason: PAIN Last Admin: 03/18/17 07:22 Dose: 650 mg Allopurinol (Zyloprim -) 100 mg PO DAILY [facility] Last Admin: 03/17/17 10:15 Dose: 100 mg Atorvastatin Calcium (Lipitor -) 40 mg PO HS [facility] Last Admin: 03/16/17 21:42 Dose: 40 mg Carvedilol (Coreg -) 3.125 mg PO BID [facility] Last Admin: 03/17/17 21:45 Dose: 3.125 mg Cholecalciferol (Vitamin D3 -) 2,000 unit PO DAILY [facility] Last Admin: 03/17/17 10:15 Dose: 2,000 unit Heparin Sodium (Porcine) (Heparin -) 1,000 unit IVPUSH PRN PRN PRN Reason: Heparin Heparin Sodium (Porcine) (Heparin -) 5,000 unit IVPUSH PRN PRN PRN Reason: Heparin Hydrocortisone (Hytone 1% Cream -) 1 applic TP BID PRN PRN Reason: FOR ITCHING Last Admin: 03/16/17 14:25 Dose: 1 applic IV Flush (Picc Line Flush) 8 ml IVPUSH PRN PRN PRN Reason: Protocol Heparin Sodium/Dextrose (Heparin Infusion -) 500 mls @ 20 mls/hr IVPB TITR [facility] ; 1,000 UNITS/HR PRN Reason: Protocol Last Titration: 03/18/17 08:08 Dose: 400 units/hr Piperacillin Sod/Tazobactam Sod (Zosyn 2.25gm Ivpb (Pre-Docked)) 50 mls @ 100 mls/hr IVPB Q6H-IV [facility] PRN Reason: Protocol Last Admin: 03/18/17 02:31 Dose: 100 mls/hr Nafcillin Sodium 2 gm/ (Dextrose) 100 mls @ 100 mls/hr IVPB Q4H-IV [facility] PRN Reason: Protocol Last Admin: 03/18/17 05:37 Dose: 100 mls/hr Clindamycin Phosphate (Cleocin 300 Mg Premix Ivpb) 50 mls @ 104 mls/hr IVPB Q6H -IV [facility] Last Admin: 03/18/17 02:27 Dose: 104 mls/hr Insulin Aspart (Novolog Vial Sliding Scale -) 1 vial SQ TIDAC [facility] PRN Reason: Protocol Last Admin: 03/18/17 11:19 Dose: Not Given Ondansetron HCl (Zofran Injection) 4 mg IVPB Q8H PRN PRN Reason: NAUSEA Oxycodone HCl (Roxicodone -) 10 mg PO Q4H PRN PRN Reason: PAIN Last Admin: 03/18/17 07:22 Dose: 10 mg Pantoprazole Sodium (Protonix -) 40 mg PO DAILY [facility] Last Admin: 03/17/17 10:14 Dose: 40 mg Polyethylene Glycol (Miralax (For Daily Use) -) 17 gm PO DAILY [facility] Last Admin: 03/17/17 10:17 Dose: 17 gm Sevelamer Carbonate (Renvela -) 800 mg PO TIDCM [facility] Last Admin: 03/17/17 17:56 Dose: 800 mg Torsemide (Demadex -) 40 mg PO DAILY [facility] Last Admin: 03/17/17 13:09 Dose: 40 mg Vitamin E (Vitamin E -) 400 unit PO DAILY [facility] Last Admin: 03/17/17 10:14 Dose: 400 unit A/P 71 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 #PEA Arrest/Resp Failure ECHO shows reduced LVEF Doppler of LE negative continue ICU care Broad spectrum Abx as per ICU and ID #Oliguric Renal Failure with volume overload Currently tolerating HD with high volume UF continue fluid restriction, salt restriction Toresmide orally daily will reaccess in AM for additional UF Trend BUN/Cr and urine output #Anemia in setting of JOE/Acute Infection with recent EGD that showed ulcers will transfuse 1 unit prbc today with HD continue PPI Trend CBC if Hgb continues to down trend would recheck stool occult blood and consult GI Aubrey Acharya DO Problem List - Problems (1) Cellulitis Code(s): L03.90 - CELLULITIS, UNSPECIFIED Qualifiers: Site of cellulitis: extremity Site of cellulitis of extremity: upper extremity Laterality: left Qualified Code(s): L03.114 - Cellulitis of left upper limb (2) Acute renal failure (ARF) Code(s): N17.9 - ACUTE KIDNEY FAILURE, UNSPECIFIED (3) CAD (coronary artery disease) Code(s): I25.10 - ATHSCL HEART DISEASE OF [place] CORONARY ARTERY W/O ANG PCTRS (4) Hypertension Code(s): I10 - ESSENTIAL (PRIMARY) HYPERTENSION (5) Gout Code(s): M10.9 - GOUT, UNSPECIFIED (6) Leukocytosis Code(s): D72.829 - ELEVATED WHITE BLOOD CELL COUNT, UNSPECIFIED
[2017-03-18] MEDS: TORSEMIDE 20 MG TABLET (FP) PO SCH (12:08)
[2017-03-18] MEDS: CARVEDILOL 3.125 MG TABLET (FP) PO SCH ×2 (12:08→21:21)
[2017-03-18] MEDS: POLYETHYLENE GLYCOL 3350 119 GM BTL PO SCH (12:08)
[2017-03-18] MEDS: CHOLECALCIFEROL (VITAMIN D3) 1,000 UNIT TABLET (FP) PO SCH (12:08)
[2017-03-18] MEDS: SEVELAMER CARBONATE 800 MG TAB (FP) PO SCH ×3 (12:11→17:24)
[2017-03-18] MEDS: PANTOPRAZOLE 40 MG TABLET (FP) PO SCH (12:16)
[2017-03-18] MEDS: ALLOPURINOL 100 MG TABLET (FP) PO SCH (12:19)
[2017-03-18] MEDS: VITAMIN E 400 INTERNATIONAL-UNITS CAPSULE (FP) PO SCH (12:20)
--- NOTE | 2017-03-18 12:57 | PN ---
Teaching Attending Note Name of Resident: Mary Ann Maciel ATTENDING PHYSICIAN STATEMENT I saw and evaluated the patient. I reviewed the resident's note and discussed the case with the resident. I agree with the resident's findings and plan as documented. SUBJECTIVE: Pt seen and examined in the ICU. Breathing continues to improve. Being dialyzed with UF goal 3800mL. No fevers or chills. Left wrist improving as well. Minimal cough. OBJECTIVE: Last Vital Signs Temp Pulse Resp BP Pulse Ox 97.5 F L 72 18 143/60 94 L 03/18/17 10:00 03/18/17 11:56 03/18/17 11:56 03/18/17 11:56 03/18/17 09:00 Intake & Output 03/15/17 03/16/17 03/17/17 03/18/17 23:59 23:59 23:59 23:59 Intake Total 625 2457 1286 300 Output Total 200 185 0 0 Balance 425 2272 1286 300 Weight 261 lb 9.6 oz 254 lb 8 oz 249 lb 3.2 oz Gen: NAD at rest Heart: RRR Lung: decreased breath sounds at the bases Abd: soft, nontender Ext: + edema CBC, BMP 03/18/17 05:30 03/18/17 06:00 Active Medications Acetaminophen (Tylenol -) 650 mg PO Q4H PRN PRN Reason: PAIN Last Admin: 03/18/17 07:22 Dose: 650 mg Allopurinol (Zyloprim -) 100 mg PO DAILY [facility] Last Admin: 03/18/17 12:19 Dose: 100 mg Atorvastatin Calcium (Lipitor -) 40 mg PO HS [facility] Last Admin: 03/16/17 21:42 Dose: 40 mg Carvedilol (Coreg -) 3.125 mg PO BID [facility] Last Admin: 03/18/17 12:08 Dose: 3.125 mg Cholecalciferol (Vitamin D3 -) 2,000 unit PO DAILY [facility] Last Admin: 03/18/17 12:08 Dose: 2,000 unit Heparin Sodium (Porcine) (Heparin -) 1,000 unit IVPUSH PRN PRN PRN Reason: Heparin Heparin Sodium (Porcine) (Heparin -) 5,000 unit IVPUSH PRN PRN PRN Reason: Heparin Hydrocortisone (Hytone 1% Cream -) 1 applic TP BID PRN PRN Reason: FOR ITCHING Last Admin: 03/16/17 14:25 Dose: 1 applic IV Flush (Picc Line Flush) 8 ml IVPUSH PRN PRN PRN Reason: Protocol Heparin Sodium/Dextrose (Heparin Infusion -) 500 mls @ 20 mls/hr IVPB TITR [facility] ; 1,000 UNITS/HR PRN Reason: Protocol Last Titration: 03/18/17 08:08 Dose: 400 units/hr Piperacillin Sod/Tazobactam Sod (Zosyn 2.25gm Ivpb (Pre-Docked)) 50 mls @ 100 mls/hr IVPB Q6H-IV [facility] PRN Reason: Protocol Last Admin: 03/18/17 12:05 Dose: 100 mls/hr Nafcillin Sodium 2 gm/ (Dextrose) 100 mls @ 100 mls/hr IVPB Q4H-IV [facility] PRN Reason: Protocol Last Admin: 03/18/17 12:19 Dose: 100 mls/hr Clindamycin Phosphate (Cleocin 300 Mg Premix Ivpb) 50 mls @ 104 mls/hr IVPB Q6H -IV [facility] Last Admin: 03/18/17 12:07 Dose: 104 mls/hr Insulin Aspart (Novolog Vial Sliding Scale -) 1 vial SQ TIDAC [facility] PRN Reason: Protocol Last Admin: 03/18/17 11:19 Dose: Not Given Ondansetron HCl (Zofran Injection) 4 mg IVPB Q8H PRN PRN Reason: NAUSEA Oxycodone HCl (Roxicodone -) 10 mg PO Q4H PRN PRN Reason: PAIN Pantoprazole Sodium (Protonix -) 40 mg PO DAILY [facility] Last Admin: 03/18/17 12:16 Dose: 40 mg Polyethylene Glycol (Miralax (For Daily Use) -) 17 gm PO DAILY [facility] Last Admin: 03/18/17 12:08 Dose: 17 gm Sevelamer Carbonate (Renvela -) 800 mg PO TIDCM [facility] Last Admin: 03/18/17 12:11 Dose: 800 mg Torsemide (Demadex -) 40 mg PO DAILY [facility] Last Admin: 03/18/17 12:08 Dose: 40 mg Vitamin E (Vitamin E -) 400 unit PO DAILY [facility] Last Admin: 03/18/17 12:20 Dose: Not Given ASSESSMENT AND PLAN: s/p Cardiopulmonary Arrest Metabolic/Lactic Acidosis resolved Acute Kidney Injury requiring HD +Troponins/CAD/r/o ACS/NSTEMI Pneumonia Shock - Favor Septic vs Cardiogenic 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
--- NOTE | 2017-03-18 13:34 | PN ---
Physical Exam: SUBJECTIVE: Patient seen and examined Patient resting in bed NAD. No acute events overnight. afebrile and hemodynamically stable. s/o UF yesterday and HD TODAY -4L. Anasarca still present. denies respiratory difficulty, chest pain or palpitations. denies abd pain n/v. Still no BM and still anuric. Complains of musculoskeletal back pain. OBJECTIVE: Vital Signs Period Temp Pulse Resp BP Sys/Resendez Pulse Ox Last 24 Hr 97.5 F-99.9 F 64-87 12-222 96-147/45-86 94-94 GENERAL: The patient is awake, alert, and fully oriented, in no acute distress. + anasarca HEAD: Normal with no signs of trauma. EYES: PERRL, extraocular movements intact, sclera anicteric, conjunctiva clear. ENT:moist mucous membranes. NECK: supple no JVD . LUNGS: Breath sounds equal, clear to auscultation bilaterally HEART: Regular rate and rhythm, S1, S2 ABDOMEN: Soft, nontender, nondistended, diffusely reduced bowel sounds. EXTREMITIES: 2+ pulses, warm, well-perfused, 3+ pedal edema. NEUROLOGICAL: Cranial nerves II through XII grossly intact. Normal speech PSYCH: Normal mood, normal affect. SKIN: Warm, dry Laboratory Results - last 24 hr 03/17/17 03/17/17 03/17/17 06:21 12:36 16:00 WBC 10.4 H RBC 2.62 L Hgb 8.2 L Hct 23.1 L MCV 88.4 MCH 31.2 MCHC 35.3 RDW 16.7 H Plt Count 213 MPV 8.1 PTT (Actin FS) Sodium Potassium Chloride Carbon Dioxide Anion Gap BUN Creatinine Creat Clearance w eGFR POC Glucometer 119.49414 143.72104 Random Glucose Calcium Phosphorus Magnesium Total Bilirubin AST ALT Alkaline Phosphatase Total Protein Albumin Random Vancomycin Blood Type Antibody Screen Crossmatch 03/17/17 03/18/17 03/18/17 16:41 05:10 05:30 WBC RBC Hgb Hct MCV MCH MCHC RDW Plt Count MPV PTT (Actin FS) Sodium Potassium Chloride Carbon Dioxide Anion Gap BUN Creatinine Creat Clearance w eGFR POC Glucometer 142.72820 Random Glucose Calcium Phosphorus Magnesium Cancelled Total Bilirubin AST ALT Alkaline Phosphatase Total Protein Albumin Random Vancomycin 5.160 Blood Type Antibody Screen Crossmatch 03/18/17 03/18/17 03/18/17 05:30 05:30 06:00 WBC 9.3 RBC 2.40 L Hgb 7.5 L Hct 21.2 L MCV 88.3 MCH 31.3 MCHC 35.4 RDW 16.6 H Plt Count 203 MPV 8.6 PTT (Actin FS) 64.2 H Sodium 130 L Potassium 4.3 Chloride 89 L Carbon Dioxide 28 Anion Gap 13 BUN 63 H D Creatinine 6.7 H Creat Clearance w eGFR 8.23 POC Glucometer Random Glucose 153 H D Calcium 7.7 L Phosphorus 7.5 H D Magnesium 2.3 Total Bilirubin 8.6 H AST 2073 H ALT 1107 H D Alkaline Phosphatase 111 D Total Protein 5.2 L Albumin 1.2 L Random Vancomycin Blood Type Antibody Screen Crossmatch 03/18/17 09:25 WBC RBC Hgb Hct MCV MCH MCHC RDW Plt Count MPV PTT (Actin FS) Sodium Potassium Chloride Carbon Dioxide Anion Gap BUN Creatinine Creat Clearance w eGFR POC Glucometer Random Glucose Calcium Phosphorus Magnesium Total Bilirubin AST ALT Alkaline Phosphatase Total Protein Albumin Random Vancomycin Blood Type O NEGATIVE Antibody Screen Negative Crossmatch See Detail Active Medications Generic Name Dose Route Start Last Admin Trade Name Freq PRN Reason Stop Dose Admin Acetaminophen 650 mg 03/06/17 16:21 03/18/17 07:22 Tylenol - PO 650 mg Q4H PRN Administration PAIN Allopurinol 100 mg 03/07/17 10:00 03/18/17 12:19 Zyloprim - PO 100 mg DAILY [facility] Administration Atorvastatin Calcium 40 mg 03/06/17 22:00 03/16/17 21:42 Lipitor - PO 40 mg HS [facility] Administration Carvedilol 3.125 mg 03/17/17 10:00 03/18/17 12:08 Coreg - PO 3.125 mg BID [facility] Administration Cholecalciferol 2,000 unit 03/07/17 10:00 03/18/17 12:08 Vitamin D3 - PO 2,000 unit DAILY [facility] Administration Heparin Sodium (Porcine) 1,000 unit 03/15/17 16:14 Heparin - IVPUSH PRN PRN Heparin Heparin Sodium (Porcine) 5,000 unit 03/15/17 16:14 Heparin - IVPUSH PRN PRN Heparin Hydrocortisone 1 applic 03/12/17 09:05 09/25/17 14:25 Hytone 1% Cream - TP 1 applic BID PRN Administration FOR ITCHING IV Flush 8 ml 03/13/17 20:23 Picc Line Flush IVPUSH PRN PRN Protocol Heparin Sodium/Dextrose 500 mls @ 20 mls/hr 03/15/17 16:15 03/18/17 08:08 Heparin Infusion - IVPB 400 units/hr TITR [facility] Titration Protocol 1,000 UNITS/HR Piperacillin Sod/Tazobactam Sod 50 mls @ 100 mls/hr 03/16/17 10:45 03/18/17 12: 05 Zosyn 2.25gm Ivpb (Pre-Docked) IVPB 100 mls/hr Q6H-IV [facility] Administration Protocol Nafcillin Sodium 2 gm/ 100 mls @ 100 mls/hr 03/16/17 14:45 03/18/17 12:19 Dextrose IVPB 100 mls/hr Q4H-IV [facility] Administration Protocol Clindamycin Phosphate 50 mls @ 104 mls/hr 03/16/17 15:00 03/18/17 12:07 Cleocin 300 Mg Premix Ivpb IVPB 104 mls/hr Q6H-IV [facility] Administration Insulin Aspart 1 vial 03/06/17 16:30 03/18/17 11:19 Novolog Vial Sliding Scale - SQ Not Given TIDAC [facility] Protocol Ondansetron HCl 4 mg 03/06/17 16:21 Zofran Injection IVPB Q8H PRN NAUSEA Oxycodone HCl 10 mg 03/18/17 11:51 Roxicodone - PO Q4H PRN PAIN Pantoprazole Sodium 40 mg 03/12/17 10:00 03/18/17 12:16 Protonix - PO 40 mg DAILY [facility] Administration Polyethylene Glycol 17 gm 03/07/17 10:00 03/18/17 12:08 Miralax (For Daily Use) - PO 17 gm DAILY [facility] Administration Sevelamer Carbonate 800 mg 03/07/17 12:00 03/18/17 12:11 Renvela - PO 800 mg TIDCM [facility] Administration Torsemide 40 mg 03/17/17 10:45 03/18/17 12:08 Demadex - PO 40 mg DAILY [facility] Administration Vitamin E 400 unit 03/07/17 10:00 03/18/17 12:20 Vitamin E - PO Not Given DAILY [facility] ASSESSMENT/PLAN: 61 yo M with PMH of CAD s/p CABG x2, gout (on allopurinol), DMT2, HTN, fatty liver, who was initially admitted for septic joint/cellulitis of L hand, subsequent sepsis with severe JOE, followed by cardiac arrest, now on HD and UF Neuro -at baseline AAOx3 Pulm -acute pulmonary edema resolved; Stable CV *s/p Cardiopulmonary arrest with PEA and respiratory failure -CHEN severe LV systolic dysfunction NYHA class III-IV -coreg 3.125 bid started yesterday and tolerated, consider titrating up -hold ave/arb or entresto due to JOE -torsemid 40 d -Hep IV *CAD post NC/CABG angina pectoris with evidence of demand ischemic injury in context of acute pulmonary edema GI *Hx recent GIB, Hep with caution; ASA+/- Plavix deferred *Worsening Transaminitis AST/ALT 2073/1107, karthikeyan quinn ischemia injury; trend -lipitor held ID *MSSA sepsis and Cellulitis left hand, wrist and forearm resolved -still on nafcillin clinda and zosyn per ID Renal *JOE due to severe sepsis, Karthikeyan ATN -Oliguric with volume overload -s/p HD today -4L; s/p UF yesterday -Na restriction -Toresmide PO daily -Monitor Cr and UO (BUN/creat 63/6.7) -avoid nephrotoxic substances -renal on case Heme -hgb 7.5, will transfuse 1u w HD for Hgb goal >8 -recheck cbc FEN No IVF lytes stable renal diet Na restricted Hep PPI Dispo: ICU Problem List - Problems (1) Acute renal failure (ARF) Code(s): N17.9 - ACUTE KIDNEY FAILURE, UNSPECIFIED (2) Anemia Code(s): D64.9 - ANEMIA, UNSPECIFIED (3) CAD (coronary artery disease) Code(s): I25.10 - ATHSCL HEART DISEASE OF [place] CORONARY ARTERY W/O ANG PCTRS (4) Cellulitis Code(s): L03.90 - CELLULITIS, UNSPECIFIED Qualifiers: Site of cellulitis: extremity Site of cellulitis of extremity: upper extremity Laterality: left Qualified Code(s): L03.114 - Cellulitis of left upper limb (5) GI bleed Code(s): K92.2 - GASTROINTESTINAL HEMORRHAGE, UNSPECIFIED (6) Gout Code(s): M10.9 - GOUT, UNSPECIFIED (7) Hypertension Code(s): I10 - ESSENTIAL (PRIMARY) HYPERTENSION (8) Leukocytosis Code(s): D72.829 - ELEVATED WHITE BLOOD CELL COUNT, UNSPECIFIED (9) MSSA (methicillin susceptible Staphylococcus aureus) infection Code(s): A49.01 - METHICILLIN SUSCEP STAPH INFECTION, UNSP SITE (10) Respiratory arrest Code(s): R09.2 - RESPIRATORY ARREST (11) Respiratory arrest before cardiac arrest Code(s): I46.9 - CARDIAC ARREST, CAUSE UNSPECIFIED R09.2 - RESPIRATORY ARREST (12) Septic arthritis Code(s): M00.9 - PYOGENIC ARTHRITIS, UNSPECIFIED Visit type - Emergency Visit Emergency Visit: Yes ED Registration Date: 02/25/17 Care time: The patient presented to the Emergency Department on the above date and was hospitalized for further evaluation of their emergent condition. - New Patient This patient is new to me today: Yes Date on this admission: 03/18/17 - Critical Care Critical Care patient: Yes Total Critical Care Time (in minutes): 35 Critical Care Statement: The care of this patient involved high complexity decision making to prevent further life threatening deterioration of the patient 's condition and/or to evaluate & treat vital organ system(s) failure or risk of failure. - Discharge Referral Referred to [facility] Med [facility] No
--- NOTE | 2017-03-18 14:42 | PN ---
Progress Note, Physician History of Present Illness: Remains comfortable on NC, hemodynamically stable. - Current Medication List Current Medications: Active Medications Acetaminophen (Tylenol -) 650 mg PO Q4H PRN PRN Reason: PAIN Last Admin: 03/18/17 07:22 Dose: 650 mg Allopurinol (Zyloprim -) 100 mg PO DAILY [facility] Last Admin: 03/18/17 12:19 Dose: 100 mg Atorvastatin Calcium (Lipitor -) 40 mg PO HS [facility] Last Admin: 03/16/17 21:42 Dose: 40 mg Carvedilol (Coreg -) 3.125 mg PO BID [facility] Last Admin: 03/18/17 12:08 Dose: 3.125 mg Cholecalciferol (Vitamin D3 -) 2,000 unit PO DAILY [facility] Last Admin: 03/18/17 12:08 Dose: 2,000 unit Heparin Sodium (Porcine) (Heparin -) 1,000 unit IVPUSH PRN PRN PRN Reason: Heparin Heparin Sodium (Porcine) (Heparin -) 5,000 unit IVPUSH PRN PRN PRN Reason: Heparin Hydrocortisone (Hytone 1% Cream -) 1 applic TP BID PRN PRN Reason: FOR ITCHING Last Admin: 03/16/17 14:25 Dose: 1 applic IV Flush (Picc Line Flush) 8 ml IVPUSH PRN PRN PRN Reason: Protocol Heparin Sodium/Dextrose (Heparin Infusion -) 500 mls @ 20 mls/hr IVPB TITR [facility] ; 1,000 UNITS/HR PRN Reason: Protocol Last Titration: 03/18/17 08:08 Dose: 400 units/hr Piperacillin Sod/Tazobactam Sod (Zosyn 2.25gm Ivpb (Pre-Docked)) 50 mls @ 100 mls/hr IVPB Q6H-IV [facility] PRN Reason: Protocol Last Admin: 03/18/17 12:05 Dose: 100 mls/hr Nafcillin Sodium 2 gm/ (Dextrose) 100 mls @ 100 mls/hr IVPB Q4H-IV [facility] PRN Reason: Protocol Last Admin: 03/18/17 12:19 Dose: 100 mls/hr Clindamycin Phosphate (Cleocin 300 Mg Premix Ivpb) 50 mls @ 104 mls/hr IVPB Q6H -IV [facility] Last Admin: 03/18/17 12:07 Dose: 104 mls/hr Insulin Aspart (Novolog Vial Sliding Scale -) 1 vial SQ TIDAC [facility] PRN Reason: Protocol Last Admin: 03/18/17 11:19 Dose: Not Given Ondansetron HCl (Zofran Injection) 4 mg IVPB Q8H PRN PRN Reason: NAUSEA Oxycodone HCl (Roxicodone -) 10 mg PO Q4H PRN PRN Reason: PAIN Pantoprazole Sodium (Protonix -) 40 mg PO DAILY [facility] Last Admin: 03/18/17 12:16 Dose: 40 mg Polyethylene Glycol (Miralax (For Daily Use) -) 17 gm PO DAILY [facility] Last Admin: 03/18/17 12:08 Dose: 17 gm Sevelamer Carbonate (Renvela -) 800 mg PO TIDCM [facility] Last Admin: 03/18/17 12:11 Dose: 800 mg Torsemide (Demadex -) 40 mg PO DAILY [facility] Last Admin: 03/18/17 12:08 Dose: 40 mg Vitamin E (Vitamin E -) 400 unit PO DAILY [facility] Last Admin: 03/18/17 12:20 Dose: Not Given - Objective Vital Signs: Vital Signs Temperature 97.5 F L 03/18/17 10:00 Pulse Rate 87 03/18/17 12:00 Respiratory Rate 20 03/18/17 12:00 Blood Pressure 147/86 03/18/17 12:00 O2 Sat by Pulse Oximetry (%) 95 03/18/17 10:00 Constitutional: Yes: No Distress, Calm Neck: Yes: Supple Cardiovascular: Yes: Regular Rate and Rhythm Respiratory: Yes: Regular, Diminished, On Nasal O2, Rhonchi Gastrointestinal: Yes: Normal Bowel Sounds, Soft, Abdomen, Obese Edema: Yes Edema: LLE: 1+, RLE: 1+ Labs: CBC, BMP 03/18/17 05:30 03/18/17 06:00 INR, PTT INR 1.96 (0.82-1.09) H 03/15/17 21:20 - ....Imaging Chest X-ray: Report Reviewed (03/17/2017 Post-extubation, no CHF or pneumonia) Problem List - Problems (1) Acute renal failure (ARF) Code(s): N17.9 - ACUTE KIDNEY FAILURE, UNSPECIFIED Qualifiers: Acute renal failure type: unspecified Qualified Code(s): N17.9 - Acute kidney failure, unspecified (2) CAD (coronary artery disease) Code(s): I25.10 - ATHSCL HEART DISEASE OF [place] CORONARY ARTERY W/O ANG PCTRS Qualifiers: Coronary Disease-Associated Artery/Lesion type: [place] artery [place] vs. transplanted heart: [place] heart Associated angina: with unstable angina Qualified Code(s): I25.110 - Atherosclerotic heart disease of [place] coronary artery with unstable angina pectoris (3) Cellulitis Code(s): L03.90 - CELLULITIS, UNSPECIFIED Qualifiers: Site of cellulitis: extremity Site of cellulitis of extremity: upper extremity Laterality: left Qualified Code(s): L03.114 - Cellulitis of left upper limb (4) GI bleed Code(s): K92.2 - GASTROINTESTINAL HEMORRHAGE, UNSPECIFIED Qualifiers: GI bleed type/associated pathology: unspecified gastrointestinal hemorrhage type Qualified Code(s): K92.2 - Gastrointestinal hemorrhage, unspecified (5) Hypertension Code(s): I10 - ESSENTIAL (PRIMARY) HYPERTENSION Qualifiers: Hypertension type: essential hypertension Qualified Code(s): I10 - Essential (primary) hypertension (6) MSSA (methicillin susceptible Staphylococcus aureus) infection Code(s): A49.01 - METHICILLIN SUSCEP STAPH INFECTION, UNSP SITE (7) Respiratory arrest before cardiac arrest Code(s): I46.9 - CARDIAC ARREST, CAUSE UNSPECIFIED R09.2 - RESPIRATORY ARREST (8) Hyperlipidemia Code(s): E78.5 - HYPERLIPIDEMIA, UNSPECIFIED Qualifiers: Hyperlipidemia type: pure hypercholesterolemia Qualified Code(s): E78.00 - Pure hypercholesterolemia, unspecified; E78.0 - Pure hypercholesterolemia (9) Cholestasis Code(s): K83.1 - OBSTRUCTION OF BILE DUCT (10) Anemia Code(s): D64.9 - ANEMIA, UNSPECIFIED Qualifiers: Iron deficiency anemia type: chronic blood loss Assessment/Plan 03/17/2017 CHEN 1. LV wall motion abnormality with moderate reduction in LV EF, estimated between 35-40% 2. MAC 3. Normal Mitral valve leaflets with no vegitation, trace to mild MR 4. AV sclerosis with no vegitation, no AI 5. Normal Tricuspid leaflets with no vegitation, mild TR 6. Faintly visualized Pulmonic valve with no vegitation 7. Intact atrial septum with no intra-cardiac shunting by color flow 8. Mild to degree of layered athero-sclerosis in the descending thoracic aorta and the distal thoracic arch 1. Cardiopulmonary arrest with PEA (pulse-less Electrical Activity) post resuscitation, respiratory failure/extubated 2. Abnormal EKG, right axis deviation with RSCD (unclear underlying atrial rhythm), resolved most likely related profound metabolic/lactic acidosis since resolved 3. CAD post NM/CABG angina pectoris with evidence of demand ischemic injury in context of acute pulmonary edema 4. Moderate LV systolic dysfunction with acute class III-IV NYHA classification LV failure, acute pulmonary edema, resolving 5. Acute renal failure on HD 6. Anemia, recent GI bleed related to peptic ulcer disease, post transfusion 7. HTN, hypotension resolved off pressors 8. DM 9. Hypercholesterolemia 10. Cellulitis with recent MSSA sepsis syndrome with septic shock 11. Hyponatremia 12. Cholestatic LFTs, suspect Nafcillin PLAN: 1. Chest CTA deferred since PTE is unlikely clinically, discussed with critical care team 2. Change IV Heparin to Heparin SQ, start Plavix 75 qd without ASA given recent GI bleed once hemostasis assured 3. HD per the renal service with ultrafiltration and Demadex 40 qd 4. Continue Coreg 3.125 bid with uptitration as tolerated, d/c Lipitor 40 qhs awaiting LFTs stabilization 5. Transfusion prn to maintain Hg equal or > 8.0, d/c heparin gtt 6. Complete abx course per ID
--- NOTE | 2017-03-18 15:47 | PN ---
Progress Note, Physician History of Present Illness: doing well no issues patient has no complaints - Current Medication List Current Medications: Active Medications Acetaminophen (Tylenol -) 650 mg PO Q4H PRN PRN Reason: PAIN Last Admin: 03/18/17 07:22 Dose: 650 mg Allopurinol (Zyloprim -) 100 mg PO DAILY [facility] Last Admin: 03/18/17 12:19 Dose: 100 mg Carvedilol (Coreg -) 3.125 mg PO BID [facility] Last Admin: 03/18/17 12:08 Dose: 3.125 mg Cholecalciferol (Vitamin D3 -) 2,000 unit PO DAILY [facility] Last Admin: 03/18/17 12:08 Dose: 2,000 unit Heparin Sodium (Porcine) (Heparin -) 5,000 unit SQ BID [facility] Hydrocortisone (Hytone 1% Cream -) 1 applic TP BID PRN PRN Reason: FOR ITCHING Last Admin: 03/16/17 14:25 Dose: 1 applic IV Flush (Picc Line Flush) 8 ml IVPUSH PRN PRN PRN Reason: Protocol Piperacillin Sod/Tazobactam Sod (Zosyn 2.25gm Ivpb (Pre-Docked)) 50 mls @ 100 mls/hr IVPB Q6H-IV [facility] PRN Reason: Protocol Last Admin: 03/18/17 12:05 Dose: 100 mls/hr Nafcillin Sodium 2 gm/ (Dextrose) 100 mls @ 100 mls/hr IVPB Q4H-IV [facility] PRN Reason: Protocol Last Admin: 03/18/17 12:19 Dose: 100 mls/hr Clindamycin Phosphate (Cleocin 300 Mg Premix Ivpb) 50 mls @ 104 mls/hr IVPB Q6H -IV [facility] Last Admin: 03/18/17 12:07 Dose: 104 mls/hr Insulin Aspart (Novolog Vial Sliding Scale -) 1 vial SQ TIDAC [facility] PRN Reason: Protocol Last Admin: 03/18/17 11:19 Dose: Not Given Ondansetron HCl (Zofran Injection) 4 mg IVPB Q8H PRN PRN Reason: NAUSEA Oxycodone HCl (Roxicodone -) 10 mg PO Q4H PRN PRN Reason: PAIN Pantoprazole Sodium (Protonix -) 40 mg PO DAILY [facility] Last Admin: 03/18/17 12:16 Dose: 40 mg Polyethylene Glycol (Miralax (For Daily Use) -) 17 gm PO DAILY [facility] Last Admin: 03/18/17 12:08 Dose: 17 gm Sevelamer Carbonate (Renvela -) 800 mg PO TIDCM [facility] Last Admin: 03/18/17 12:11 Dose: 800 mg Torsemide (Demadex -) 40 mg PO DAILY [facility] Last Admin: 03/18/17 12:08 Dose: 40 mg Vitamin E (Vitamin E -) 400 unit PO DAILY [facility] Last Admin: 03/18/17 12:20 Dose: Not Given - Objective Vital Signs: Vital Signs Temperature 97.5 F L 03/18/17 10:00 Pulse Rate 87 03/18/17 12:00 Respiratory Rate 20 03/18/17 12:00 Blood Pressure 147/86 03/18/17 12:00 O2 Sat by Pulse Oximetry (%) 95 03/18/17 10:00 Constitutional: Yes: No Distress, Calm Cardiovascular: Yes: Regular Rate and Rhythm Respiratory: Yes: Regular, CTA Bilaterally Gastrointestinal: Yes: Normal Bowel Sounds, Soft Musculoskeletal: Yes: Other Extremities: Yes: Other Edema: LUE: 2+, RUE: 2+, LLE: 2+, RLE: 2+ Neurological: Yes: Alert, Oriented Psychiatric: Yes: Alert, Oriented Labs: CBC, BMP 03/18/17 05:30 03/18/17 06:00 INR, PTT INR 1.96 (0.82-1.09) H 03/15/17 21:20 Assessment/Plan sepsis septic left wrist joint gm positive bacteremia fever tenderness leukocytosis nstemi plan conitnue abx cx reports noted close watch patient currently getting dialysis close monitoring cc time 45 min
[2017-03-18 16:34] LABS: MCH 30.7 pg (25.7-33.7); MCHC 34.6 g/dl (32.0-35.9); MEAN CELL VOLUME 88.7 fl (80-96); MEAN PLT VOLUME 8.5 fl (7.5-11.1); PLATELET COUNT 247 K/MM3 (134-434); RDW 16.2 % (11.9-15.9)
--- NOTE | 2017-03-18 16:39 | PN ---
GI Progress Note Subjective: Recalled for abnormal liver chemistries No abdominal pain S/P cardiac arrest with resucitation this past thursday and use of pressors Normal liver chemistries on admission Has been on nafcillin ? given 1g IV APAP 03/16 and 03/17 No BM for several days - Objective Vital Signs: Vital Signs Temperature 97.5 F L 03/18/17 10:00 Pulse Rate 87 03/18/17 12:00 Respiratory Rate 20 03/18/17 12:00 Blood Pressure 147/86 03/18/17 12:00 O2 Sat by Pulse Oximetry (%) 95 03/18/17 10:00 Constitutional: Calm Eyes: Yes: Sclera Icterus Cardiovascular: Yes: Regular Rate and Rhythm Respiratory: Yes: Rhonchi (mild at left lung base) Gastrointestinal Inspection: Yes: Other (softly protuberant). No: Distention ...Auscultate: Yes: Normoactive Bowel Sounds ...Palpate: No: Hepatomegaly, Splenomegaly, Tenderness Edema: Yes Edema: LLE: 2+ (erythema), RLE: 2+ (erythema) Neurological: Yes: Alert (somewhat lethargic at times). No: [place] Labs: CBC, BMP 03/18/17 06:00 INR, PTT INR 1.96 (0.82-1.09) H 03/15/17 21:20 Hepatic Panel Total Bilirubin 8.6 mg/dL (0.2-1.0) H 03/18/17 06:00 AST 2073 U/L (15-37) H 03/18/17 06:00 ALT 1107 U/L (12-78) H D 03/18/17 06:00 Alkaline Phosphatase 111 U/L (45-117) D 03/18/17 06:00 Albumin 1.2 g/dl (3.4-5.0) L 03/18/17 06:00 Problem List - Problems (1) Abnormal liver enzymes Assessment/Plan: Suspect secondary to ischemic hepatopathy in the setting of acute cardiac arrest ? if component of rhabdo as well Advise: Avoid hepatotoxic agents: no acetaminophen containing agents Check ammonia level Added lactulose 30g daily to regimen. This will aid with constipation as well Abdominal US with doppler of portal system Ordered repeat CPK for AM Check repeat coags and monitor Ordered hepatic panel that includes direct bili for AM Code(s): R74.8 - ABNORMAL LEVELS OF OTHER SERUM ENZYMES (2) GI bleed Assessment/Plan: No overt bleeding / BM's but with worsening anemia: likely multifactorial Continue to monitor for now Continue protonix 40mg daily Code(s): K92.2 - GASTROINTESTINAL HEMORRHAGE, UNSPECIFIED Qualifiers: GI bleed type/associated pathology: unspecified gastrointestinal hemorrhage type Qualified Code(s): K92.2 - Gastrointestinal hemorrhage, unspecified
[2017-03-18] MEDS: LACTULOSE 20 GM/30 ML UDC (FOR ORAL USE ONLY) PO SCH (18:17)
[2017-03-18] MEDS: HEPARIN NA (PORCINE) 5,000 UNITS/ML 1ML VIAL SQ SCH (21:21)
[2017-03-18] MEDS: PIPERACILLIN/TAZOB 2.25 GM 2.25 GM in DEXTROSE 5%-WATER - 50 ML IVPB SCH (22:20)
[2017-03-19] MEDS: NAFCILLIN - 2 GM in DEXTROSE 5%-WATER - 100 ML IVPB SCH ×6 (01:17→23:00)
[2017-03-19] MEDS ORDERED: PIPERACILLIN/TAZOBACTAM 2.25 GM VIAL IVPB ONE ×4 (03:24→20:40)
[2017-03-19] MEDS ORDERED: PT OWN MED DRAWER 7, Y5N ONE ×6 (03:24→22:59)
[2017-03-19] MEDS ORDERED: DEXTROSE 5%-WATER - 50 ML IVPB ONE ×4 (03:24→20:40)
[2017-03-19] MEDS: CLINDAMYCIN 300 MG PREMIX IVPB 50 ML IVPB SCH ×4 (03:27→21:24)
[2017-03-19] MEDS: PIPERACILLIN/TAZOB 2.25 GM 2.25 GM in DEXTROSE 5%-WATER - 50 ML IVPB SCH ×4 (03:27→21:26)
[2017-03-19] MEDS: INSULIN SLIDING SCALE (NOVOLOG) 1 VIAL SQ SCH ×3 (06:26→18:14)
[2017-03-19 06:57] LABS: MCH 30.4 pg (25.7-33.7); MCHC 34.6 g/dl (32.0-35.9); MEAN CELL VOLUME 87.7 fl (80-96); MEAN PLT VOLUME 8.3 fl (7.5-11.1); PLATELET COUNT 235 K/MM3 (134-434); RDW 16.2 % (11.9-15.9); WHITE BLOOD COUNT 12.8 K/mm3 (4.0-10.0)
[2017-03-19 07:24] LABS: ALBUMIN 1.3 g/dl (3.4-5.0); ALK PHOS 123 U/L (45-117); ANION GAP 14 (8-16); BILIRUBIN,TOTAL 9.4 mg/dL (0.2-1.0); CALCIUM 7.7 mg/dL (8.5-10.1); CO2 29 mmol/L (21-32); GLUCOSE,RANDOM 147 mg/dL (74-106); MAGNESIUM 2.3 mg/dL (1.8-2.4); PHOSPHOROUS 4.8 mg/dL (2.5-4.9)
[2017-03-19 07:33] LABS: SGOT/AST 1532 U/L (15-37); SGPT/ALT 1029 U/L (12-78)
[2017-03-19 08:22] LABS: INR 1.65 (0.82-1.09); PROTHROMBIN TIME (PATIENT) 18.3 SEC (9.98-11.88)
--- NOTE | 2017-03-19 08:54 | PN ---
Progress Note (short form) - Note Progress Note: patient downstairs for Liver sonogram. Some decrease in liver chemistries today but Bilirubin over 9. Transferred to telemetry ?200cc urine today Vital Signs Temp 98.4 F 03/19/17 05:47 Pulse 73 03/19/17 05:47 Resp 16 03/19/17 05:47 BP 113/52 03/19/17 05:47 Pulse Ox 95 03/19/17 02:00 Intake & Output 03/18/17 03/18/17 03/19/17 11:59 23:59 11:59 Intake Total 300 704 304 Output Total 0 425 Balance 300 279 304 Weight 245 lb Intake: IV 96 Heparin Infusion - 500 ml 96 @ 1,000 UNITS/HR 20 mls/ hr IVPB TITR [facility] Rx#: [id number] IVPB 204 304 304 Oral 400 Output: Urine 0 425 Void 0 425 Other: Voiding Method Indwelling Catheter Urinal Bowel Movement Yes Weight Measurement Method Built in [facility] Abnormal Lab Results 03/13/17 03/18/17 03/18/17 09:30 06:00 09:25 WBC RBC Hgb Hct RDW PT with INR INR PTT (Actin FS) Sodium 130 L Chloride 89 L BUN 63 H D Creatinine 6.7 H Random Glucose 153 H D Calcium 7.7 L Phosphorus 7.5 H D Total Bilirubin 8.6 H AST 2073 H ALT 1107 H D Alkaline Phosphatase Creatine Kinase Total Protein 5.2 L Albumin 1.2 L Crossmatch See Detail See Detail 03/18/17 03/19/17 03/19/17 15:45 06:00 06:00 WBC 12.8 H RBC 2.90 L D 2.72 L Hgb 8.9 L D 8.2 L Hct 25.7 L D 23.8 L RDW 16.2 H 16.2 H PT with INR INR PTT (Actin FS) 47.6 H Sodium Chloride BUN Creatinine Random Glucose Calcium Phosphorus Total Bilirubin AST ALT Alkaline Phosphatase Creatine Kinase Total Protein Albumin Crossmatch 03/19/17 03/19/17 03/19/17 06:00 06:00 06:00 WBC RBC Hgb Hct RDW PT with INR 18.30 H INR 1.65 H PTT (Actin FS) Sodium 134 L Chloride 91 L BUN 47 H D Creatinine 5.0 H D Random Glucose 147 H Calcium 7.7 L Phosphorus Total Bilirubin 9.4 H AST 1532 H ALT 1029 H Alkaline Phosphatase 123 H Creatine Kinase 1060 H Total Protein 5.0 L Albumin 1.3 L Crossmatch IMP: Acute renal failure due to sepsis MSSA sepsis Acute Cellulitis right hand and wrist Acute Respiratory Arrest Ischemic liver injury due to arrest chronic anemia Acute Cardiac Event CABG X2 Plan: F/U Lab [facility] D[facility] Problem List - Problems (1) Cellulitis Code(s): L03.90 - CELLULITIS, UNSPECIFIED Qualifiers: Site of cellulitis: extremity Site of cellulitis of extremity: upper extremity Laterality: left Qualified Code(s): L03.114 - Cellulitis of left upper limb (2) GI bleed Code(s): K92.2 - GASTROINTESTINAL HEMORRHAGE, UNSPECIFIED Qualifiers: GI bleed type/associated pathology: unspecified gastrointestinal hemorrhage type Qualified Code(s): K92.2 - Gastrointestinal hemorrhage, unspecified (3) Acute renal failure (ARF) Code(s): N17.9 - ACUTE KIDNEY FAILURE, UNSPECIFIED Qualifiers: Acute renal failure type: unspecified Qualified Code(s): N17.9 - Acute kidney failure, unspecified (4) CAD (coronary artery disease) Code(s): I25.10 - ATHSCL HEART DISEASE OF [place] CORONARY ARTERY W/O ANG PCTRS Qualifiers: Coronary Disease-Associated Artery/Lesion type: [place] artery [place] vs. transplanted heart: [place] heart Associated angina: with unstable angina Qualified Code(s): I25.110 - Atherosclerotic heart disease of [place] coronary artery with unstable angina pectoris (5) Gout Code(s): M10.9 - GOUT, UNSPECIFIED (6) Hypertension Code(s): I10 - ESSENTIAL (PRIMARY) HYPERTENSION Qualifiers: Hypertension type: essential hypertension Qualified Code(s): I10 - Essential (primary) hypertension (7) Anemia Code(s): D64.9 - ANEMIA, UNSPECIFIED Qualifiers: Iron deficiency anemia type: chronic blood loss (8) Leukocytosis Code(s): D72.829 - ELEVATED WHITE BLOOD CELL COUNT, UNSPECIFIED (9) Respiratory arrest before cardiac arrest Code(s): I46.9 - CARDIAC ARREST, CAUSE UNSPECIFIED R09.2 - RESPIRATORY ARREST (10) Respiratory arrest Code(s): R09.2 - RESPIRATORY ARREST
[2017-03-19] MEDS: SEVELAMER CARBONATE 800 MG TAB (FP) PO SCH ×3 (09:10→18:13)
[2017-03-19] MEDS: LACTULOSE 20 GM/30 ML UDC (FOR ORAL USE ONLY) PO SCH (09:24)
[2017-03-19] MEDS: CHOLECALCIFEROL (VITAMIN D3) 1,000 UNIT TABLET (FP) PO SCH (09:27)
[2017-03-19] MEDS: HEPARIN NA (PORCINE) 5,000 UNITS/ML 1ML VIAL SQ SCH ×2 (09:27→21:27)
[2017-03-19] MEDS: CARVEDILOL 3.125 MG TABLET (FP) PO SCH ×2 (09:27→21:25)
[2017-03-19] MEDS: ALLOPURINOL 100 MG TABLET (FP) PO SCH (09:27)
[2017-03-19] MEDS: TORSEMIDE 20 MG TABLET (FP) PO SCH (09:27)
[2017-03-19] MEDS: PANTOPRAZOLE 40 MG TABLET (FP) PO SCH (09:27)
[2017-03-19] MEDS: oxyCODONE HCL 5 MG TABLET PO PRN ×3 (09:40→21:25)
--- NOTE | 2017-03-19 10:12 | PN ---
GI Progress Note Subjective: No acute events No abdominal pain Had Brown BM today - Objective Vital Signs: Vital Signs Temperature 98.4 F 03/19/17 05:47 Pulse Rate 73 03/19/17 05:47 Respiratory Rate 16 03/19/17 05:47 Blood Pressure 113/52 03/19/17 05:47 O2 Sat by Pulse Oximetry (%) 95 03/19/17 02:00 Constitutional: Calm Eyes: Yes: Sclera Icterus Cardiovascular: Yes: Regular Rate and Rhythm. No: Murmur Respiratory: Yes: Rhonchi (at left lung base) Gastrointestinal Inspection: Yes: Other (protubrant abdomen) ...Auscultate: Yes: Normoactive Bowel Sounds ...Palpate: Yes: Soft Edema: Yes Edema: LLE: 4+ (w/ erythema), RLE: 4+ (w/ erythema) Neurological: Yes: Alert Labs: CBC, BMP 03/19/17 06:00 03/19/17 06:00 INR, PTT INR 1.65 (0.82-1.09) H 03/19/17 06:00 Hepatic Panel Total Bilirubin 9.4 mg/dL (0.2-1.0) H 03/19/17 06:00 AST 1532 U/L (15-37) H 03/19/17 06:00 ALT 1029 U/L (12-78) H 03/19/17 06:00 Alkaline Phosphatase 123 U/L (45-117) H 03/19/17 06:00 Albumin 1.3 g/dl (3.4-5.0) L 03/19/17 06:00 Laboratory Tests 03/19/17 03/19/17 06:00 06:00 Ammonia 31.40 Creatine Kinase 1060 H Problem List - Problems (1) Abnormal liver enzymes Assessment/Plan: Suspected resolving ischemic hepatopathy: Transaminases improving and while bilirubin remains eleveated and slightly higher, it will likely lag prior to improvement Continue Lactulose at 20g as it also seemed to afford him relief of his constipation Await abd US/doppler study Avoid hepatotoxic agents Code(s): R74.8 - ABNORMAL LEVELS OF OTHER SERUM ENZYMES (2) GI bleed Code(s): K92.2 - GASTROINTESTINAL HEMORRHAGE, UNSPECIFIED Qualifiers: GI bleed type/associated pathology: unspecified gastrointestinal hemorrhage type Qualified Code(s): K92.2 - Gastrointestinal hemorrhage, unspecified
--- NOTE | 2017-03-19 10:35 | PN ---
Progress Note, Physician History of Present Illness: Remains comfortable on NC, hemodynamically stable. - Current Medication List Current Medications: Active Medications Allopurinol (Zyloprim -) 100 mg PO DAILY [facility] Last Admin: 03/19/17 09:27 Dose: 100 mg Carvedilol (Coreg -) 3.125 mg PO BID [facility] Last Admin: 03/19/17 09:27 Dose: 3.125 mg Cholecalciferol (Vitamin D3 -) 2,000 unit PO DAILY [facility] Last Admin: 03/19/17 09:27 Dose: 2,000 unit Heparin Sodium (Porcine) (Heparin -) 5,000 unit SQ BID [facility] Last Admin: 03/19/17 09:27 Dose: 5,000 unit Hydrocortisone (Hytone 1% Cream -) 1 applic TP BID PRN PRN Reason: FOR ITCHING Last Admin: 03/16/17 14:25 Dose: 1 applic IV Flush (Picc Line Flush) 8 ml IVPUSH PRN PRN PRN Reason: Protocol Nafcillin Sodium 2 gm/ (Dextrose) 100 mls @ 100 mls/hr IVPB Q4H-IV [facility] PRN Reason: Protocol Last Admin: 03/19/17 05:43 Dose: 100 mls/hr Clindamycin Phosphate (Cleocin 300 Mg Premix Ivpb) 50 mls @ 104 mls/hr IVPB Q6H -IV [facility] Last Admin: 03/19/17 09:11 Dose: 104 mls/hr Piperacillin Sod/Tazobactam (Sod 2.25 gm/ Dextrose) 50 mls @ 100 mls/hr IVPB Q6H-IV [facility] Last Admin: 03/19/17 09:18 Dose: 100 mls/hr Insulin Aspart (Novolog Vial Sliding Scale -) 1 vial SQ TIDAC [facility] PRN Reason: Protocol Last Admin: 03/19/17 06:26 Dose: Not Given Lactulose (Cephulac (Oral Use)) 30 gm PO DAILY [facility] Last Admin: 03/19/17 09:24 Dose: 30 gm Ondansetron HCl (Zofran Injection) 4 mg IVPB Q8H PRN PRN Reason: NAUSEA Oxycodone HCl (Roxicodone -) 10 mg PO Q4H PRN PRN Reason: PAIN Last Admin: 03/19/17 09:40 Dose: 5 mg Pantoprazole Sodium (Protonix -) 40 mg PO DAILY [facility] Last Admin: 03/19/17 09:27 Dose: 40 mg Polyethylene Glycol (Miralax (For Daily Use) -) 17 gm PO DAILY [facility] Last Admin: 03/18/17 12:08 Dose: 17 gm Sevelamer Carbonate (Renvela -) 800 mg PO TIDCM [facility] Last Admin: 03/19/17 09:10 Dose: 800 mg Torsemide (Demadex -) 40 mg PO DAILY [facility] Last Admin: 03/19/17 09:27 Dose: 40 mg Vitamin E (Vitamin E -) 400 unit PO DAILY [facility] Last Admin: 03/18/17 12:20 Dose: Not Given - Objective Vital Signs: Vital Signs Temperature 98.4 F 03/19/17 05:47 Pulse Rate 73 03/19/17 05:47 Respiratory Rate 16 03/19/17 05:47 Blood Pressure 113/52 03/19/17 05:47 O2 Sat by Pulse Oximetry (%) 95 03/19/17 02:00 Constitutional: Yes: No Distress, Calm Neck: Yes: Supple Cardiovascular: Yes: Regular Rate and Rhythm Respiratory: Yes: Regular, Diminished Gastrointestinal: Yes: Normal Bowel Sounds, Soft Edema: No Labs: CBC, BMP 03/19/17 06:00 03/19/17 06:00 INR, PTT INR 1.65 (0.82-1.09) H 03/19/17 06:00 - ....Imaging Chest X-ray: Report Reviewed (Improved CHF) Ultrasound: Report Reviewed (Cholelithiasis without biliary duct dilatation, patent portal and hepatic veins) Problem List - Problems (1) Acute renal failure (ARF) Code(s): N17.9 - ACUTE KIDNEY FAILURE, UNSPECIFIED Qualifiers: Acute renal failure type: unspecified Qualified Code(s): N17.9 - Acute kidney failure, unspecified (2) CAD (coronary artery disease) Code(s): I25.10 - ATHSCL HEART DISEASE OF [place] CORONARY ARTERY W/O ANG PCTRS Qualifiers: Coronary Disease-Associated Artery/Lesion type: [place] artery [place] vs. transplanted heart: [place] heart Associated angina: with unstable angina Qualified Code(s): I25.110 - Atherosclerotic heart disease of [place] coronary artery with unstable angina pectoris (3) Cellulitis Code(s): L03.90 - CELLULITIS, UNSPECIFIED Qualifiers: Site of cellulitis: extremity Site of cellulitis of extremity: upper extremity Laterality: left Qualified Code(s): L03.114 - Cellulitis of left upper limb (4) GI bleed Code(s): K92.2 - GASTROINTESTINAL HEMORRHAGE, UNSPECIFIED Qualifiers: GI bleed type/associated pathology: unspecified gastrointestinal hemorrhage type Qualified Code(s): K92.2 - Gastrointestinal hemorrhage, unspecified (5) Hypertension Code(s): I10 - ESSENTIAL (PRIMARY) HYPERTENSION Qualifiers: Hypertension type: essential hypertension Qualified Code(s): I10 - Essential (primary) hypertension (6) MSSA (methicillin susceptible Staphylococcus aureus) infection Code(s): A49.01 - METHICILLIN SUSCEP STAPH INFECTION, UNSP SITE (7) Respiratory arrest before cardiac arrest Code(s): I46.9 - CARDIAC ARREST, CAUSE UNSPECIFIED R09.2 - RESPIRATORY ARREST (8) Hyperlipidemia Code(s): E78.5 - HYPERLIPIDEMIA, UNSPECIFIED Qualifiers: Hyperlipidemia type: pure hypercholesterolemia Qualified Code(s): E78.00 - Pure hypercholesterolemia, unspecified; E78.0 - Pure hypercholesterolemia (9) Cholestasis Code(s): K83.1 - OBSTRUCTION OF BILE DUCT (10) Anemia Code(s): D64.9 - ANEMIA, UNSPECIFIED Qualifiers: Iron deficiency anemia type: chronic blood loss Assessment/Plan 03/17/2017 CHEN 1. LV wall motion abnormality with moderate reduction in LV EF, estimated between 35-40% 2. MAC 3. Normal Mitral valve leaflets with no vegitation, trace to mild MR 4. AV sclerosis with no vegitation, no AI 5. Normal Tricuspid leaflets with no vegitation, mild TR 6. Faintly visualized Pulmonic valve with no vegitation 7. Intact atrial septum with no intra-cardiac shunting by color flow 8. Mild to degree of layered athero-sclerosis in the descending thoracic aorta and the distal thoracic arch 1. Cardiopulmonary arrest with PEA (pulse-less Electrical Activity) post resuscitation, respiratory failure/extubated 2. Abnormal EKG, right axis deviation with RSCD (unclear underlying atrial rhythm), resolved most likely related profound metabolic/lactic acidosis since resolved 3. CAD post DC/CABG angina pectoris with evidence of demand ischemic injury in context of acute pulmonary edema 4. Moderate LV systolic dysfunction with acute class III-IV NYHA classification LV failure, acute pulmonary edema, resolving 5. Acute renal failure on HD 6. Anemia, recent GI bleed related to peptic ulcer disease, post transfusion 7. HTN, hypotension resolved off pressors 8. DM 9. Hypercholesterolemia 10. Cellulitis with recent MSSA sepsis syndrome with septic shock 11. Hyponatremia 12. Cholestatic LFTs, suspect Nafcillin vs ischemia PLAN: 1. Trend LFTs already peaked 2. Continue Heparin SQ, start Plavix 75 qd without ASA given recent GI bleed once hemostasis assured, maintain on Protonix 40 qd 3. HD per the renal service with ultrafiltration and Demadex 40 qd 4. Continue Coreg 3.125 bid with uptitration as tolerated, d/c Lipitor 40 qhs awaiting LFTs stabilization 5. Transfusion prn to maintain Hg equal or > 8.0 6. Complete abx course per ID
[2017-03-19] MEDS: VITAMIN E 400 INTERNATIONAL-UNITS CAPSULE (FP) PO SCH (11:10)
[2017-03-19] MEDS: POLYETHYLENE GLYCOL 3350 119 GM BTL PO SCH (11:10)
[2017-03-19] MEDS ORDERED: INSULIN (NOVOLOG) ASPART 100 UNITS/ML 10ML VIAL ONE (11:30)
--- NOTE | 2017-03-19 11:45 | PN ---
Progress Note, Physician Chief Complaint: Renal Follow up: The patient back in Telemetry. Awake , alert, looking and feeling much better. No chest pains. Started to eat better. Noted marginal improvement in urine output. Family visiting. - Current Medication List Current Medications: Active Medications Allopurinol (Zyloprim -) 100 mg PO DAILY [facility] Last Admin: 03/19/17 09:27 Dose: 100 mg Carvedilol (Coreg -) 3.125 mg PO BID [facility] Last Admin: 03/19/17 09:27 Dose: 3.125 mg Cholecalciferol (Vitamin D3 -) 2,000 unit PO DAILY [facility] Last Admin: 03/19/17 09:27 Dose: 2,000 unit Heparin Sodium (Porcine) (Heparin -) 5,000 unit SQ BID [facility] Last Admin: 03/19/17 09:27 Dose: 5,000 unit Hydrocortisone (Hytone 1% Cream -) 1 applic TP BID PRN PRN Reason: FOR ITCHING Last Admin: 03/16/17 14:25 Dose: 1 applic IV Flush (Picc Line Flush) 8 ml IVPUSH PRN PRN PRN Reason: Protocol Nafcillin Sodium 2 gm/ (Dextrose) 100 mls @ 100 mls/hr IVPB Q4H-IV [facility] PRN Reason: Protocol Last Admin: 03/19/17 11:10 Dose: 100 mls/hr Clindamycin Phosphate (Cleocin 300 Mg Premix Ivpb) 50 mls @ 104 mls/hr IVPB Q6H -IV [facility] Last Admin: 03/19/17 09:11 Dose: 104 mls/hr Piperacillin Sod/Tazobactam (Sod 2.25 gm/ Dextrose) 50 mls @ 100 mls/hr IVPB Q6H-IV [facility] Last Admin: 03/19/17 09:18 Dose: 100 mls/hr Insulin Aspart (Novolog Vial Sliding Scale -) 1 vial SQ TIDAC [facility] PRN Reason: Protocol Last Admin: 03/19/17 06:26 Dose: Not Given Lactulose (Cephulac (Oral Use)) 30 gm PO DAILY [facility] Last Admin: 03/19/17 09:24 Dose: 30 gm Ondansetron HCl (Zofran Injection) 4 mg IVPB Q8H PRN PRN Reason: NAUSEA Oxycodone HCl (Roxicodone -) 10 mg PO Q4H PRN PRN Reason: PAIN Last Admin: 03/19/17 09:40 Dose: 5 mg Pantoprazole Sodium (Protonix -) 40 mg PO DAILY [facility] Last Admin: 03/19/17 09:27 Dose: 40 mg Polyethylene Glycol (Miralax (For Daily Use) -) 17 gm PO DAILY [facility] Last Admin: 03/19/17 11:10 Dose: Not Given Sevelamer Carbonate (Renvela -) 800 mg PO TIDCM [facility] Last Admin: 03/19/17 09:10 Dose: 800 mg Torsemide (Demadex -) 40 mg PO DAILY [facility] Last Admin: 03/19/17 09:27 Dose: 40 mg Vitamin E (Vitamin E -) 400 unit PO DAILY [facility] Last Admin: 03/19/17 11:10 Dose: Not Given - Objective Vital Signs: Vital Signs Temperature 98.4 F 03/19/17 05:47 Pulse Rate 73 03/19/17 11:39 Respiratory Rate 16 03/19/17 05:47 Blood Pressure 113/52 03/19/17 05:47 O2 Sat by Pulse Oximetry (%) 95 03/19/17 02:00 Constitutional: Yes: Anxious, Mild Distress HENT: Yes: Atraumatic Neck: Yes: Trachea Midline Respiratory: Yes: Diminished, Rales Gastrointestinal: Yes: Normal Bowel Sounds, Abdomen, Obese Genitourinary: No: CVA Tenderness - Left, CVA Tenderness - Right Labs: CBC, BMP 03/19/17 06:00 03/19/17 06:00 INR, PTT INR 1.65 (0.82-1.09) H 03/19/17 06:00 Problem List - Problems (1) Acute renal failure (ARF) Code(s): N17.9 - ACUTE KIDNEY FAILURE, UNSPECIFIED Qualifiers: Acute renal failure type: unspecified Qualified Code(s): N17.9 - Acute kidney failure, unspecified (2) Anemia Code(s): D64.9 - ANEMIA, UNSPECIFIED Qualifiers: Iron deficiency anemia type: chronic blood loss (3) CAD (coronary artery disease) Code(s): I25.10 - ATHSCL HEART DISEASE OF [place] CORONARY ARTERY W/O ANG PCTRS Qualifiers: Coronary Disease-Associated Artery/Lesion type: [place] artery [place] vs. transplanted heart: [place] heart Associated angina: with unstable angina Qualified Code(s): I25.110 - Atherosclerotic heart disease of [place] coronary artery with unstable angina pectoris (4) Cellulitis Code(s): L03.90 - CELLULITIS, UNSPECIFIED Qualifiers: Site of cellulitis: extremity Site of cellulitis of extremity: upper extremity Laterality: left Qualified Code(s): L03.114 - Cellulitis of left upper limb (5) Gout Code(s): M10.9 - GOUT, UNSPECIFIED (6) Hypertension Code(s): I10 - ESSENTIAL (PRIMARY) HYPERTENSION Qualifiers: Hypertension type: essential hypertension Qualified Code(s): I10 - Essential (primary) hypertension (7) Leukocytosis Code(s): D72.829 - ELEVATED WHITE BLOOD CELL COUNT, UNSPECIFIED (8) MSSA (methicillin susceptible Staphylococcus aureus) infection Code(s): A49.01 - METHICILLIN SUSCEP STAPH INFECTION, UNSP SITE Assessment/Plan 71 y/o male with Acute Kidney Injury, massive fluid overlad, MSSA Bacteremia On Nafcillin, Zosyn and Clindamycin. The Acute Kidney failure in maintained by the sepsis and Hemodynamic factors. Will continue the Abx as ordered. HD for 3 hours, with the first 2 hours Isolated UF to remove as much fluid as tolerated. Orders written and reviewed with the RN. Rivka Holly MD
--- NOTE | 2017-03-19 16:14 | PN ---
Progress Note (short form) - Note Progress Note: Feels overall better. No GI bleed noted. Edema looks less. No CP or SOB. Intake & Output 03/16/17 03/17/17 03/18/17 03/19/17 23:59 23:59 23:59 23:59 Intake Total 2457 1286 1004 924 Output Total 185 0 425 Balance 2272 1286 579 924 Weight 254 lb 8 oz 249 lb 3.2 oz 245 lb Last Vital Signs Temp Pulse Resp BP Pulse Ox 98.0 F 68 18 94/49 95 03/19/17 14:00 03/19/17 15:30 03/19/17 15:30 03/19/17 15:30 03/19/17 02:00 Active Medications Allopurinol (Zyloprim -) 100 mg PO DAILY [facility] Last Admin: 03/19/17 09:27 Dose: 100 mg Carvedilol (Coreg -) 3.125 mg PO BID [facility] Last Admin: 03/19/17 09:27 Dose: 3.125 mg Cholecalciferol (Vitamin D3 -) 2,000 unit PO DAILY [facility] Last Admin: 03/19/17 09:27 Dose: 2,000 unit Heparin Sodium (Porcine) (Heparin -) 5,000 unit SQ BID [facility] Last Admin: 03/19/17 09:27 Dose: 5,000 unit Hydrocortisone (Hytone 1% Cream -) 1 applic TP BID PRN PRN Reason: FOR ITCHING Last Admin: 03/16/17 14:25 Dose: 1 applic IV Flush (Picc Line Flush) 8 ml IVPUSH PRN PRN PRN Reason: Protocol Nafcillin Sodium 2 gm/ (Dextrose) 100 mls @ 100 mls/hr IVPB Q4H-IV [facility] PRN Reason: Protocol Last Admin: 03/19/17 13:58 Dose: 100 mls/hr Clindamycin Phosphate (Cleocin 300 Mg Premix Ivpb) 50 mls @ 104 mls/hr IVPB Q6H -IV [facility] Last Admin: 03/19/17 14:01 Dose: 104 mls/hr Piperacillin Sod/Tazobactam (Sod 2.25 gm/ Dextrose) 50 mls @ 100 mls/hr IVPB Q6H-IV [facility] Last Admin: 03/19/17 14:01 Dose: 100 mls/hr Insulin Aspart (Novolog Vial Sliding Scale -) 1 vial SQ TIDAC [facility] PRN Reason: Protocol Last Admin: 03/19/17 12:25 Dose: 4 units Lactulose (Cephulac (Oral Use)) 30 gm PO DAILY [facility] Last Admin: 03/19/17 09:24 Dose: 30 gm Ondansetron HCl (Zofran Injection) 4 mg IVPB Q8H PRN PRN Reason: NAUSEA Oxycodone HCl (Roxicodone -) 10 mg PO Q4H PRN PRN Reason: PAIN Last Admin: 03/19/17 09:40 Dose: 10 mg Pantoprazole Sodium (Protonix -) 40 mg PO DAILY [facility] Last Admin: 03/19/17 09:27 Dose: 40 mg Polyethylene Glycol (Miralax (For Daily Use) -) 17 gm PO DAILY [facility] Last Admin: 03/19/17 11:10 Dose: Not Given Sevelamer Carbonate (Renvela -) 800 mg PO TIDCM [facility] Last Admin: 03/19/17 12:28 Dose: 800 mg Torsemide (Demadex -) 40 mg PO DAILY [facility] Last Admin: 03/19/17 09:27 Dose: 40 mg Vitamin E (Vitamin E -) 400 unit PO DAILY [facility] Last Admin: 03/19/17 11:10 Dose: Not Given Exam: General: awake, alert, NAD HEENT: PERRL, no JVD CV: s1, s2 Pulm: diminished in bases Abd: obese Ext: WWP, L wrist improved swelling erythema Neuro: grossly intact Laboratory Results - last 24 hr 03/13/17 03/18/17 03/18/17 09:30 11:16 15:45 WBC 10.0 RBC 2.90 L D Hgb 8.9 L D Hct 25.7 L D MCV 88.7 MCH 30.7 MCHC 34.6 RDW 16.2 H Plt Count 247 D MPV 8.5 PT with INR INR PTT (Actin FS) Sodium Potassium Chloride Carbon Dioxide Anion Gap BUN Creatinine Creat Clearance w eGFR POC Glucometer 99.73686 Random Glucose Calcium Phosphorus Magnesium Total Bilirubin Direct Bilirubin AST ALT Alkaline Phosphatase Ammonia Creatine Kinase Creatine Kinase Index CK-MB (CK-2) Total Protein Albumin Blood Type O NEGATIVE Antibody Screen Negative Crossmatch See Detail 03/18/17 03/19/17 03/19/17 17:08 05:51 06:00 WBC 12.8 H RBC 2.72 L Hgb 8.2 L Hct 23.8 L MCV 87.7 MCH 30.4 MCHC 34.6 RDW 16.2 H Plt Count 235 MPV 8.3 PT with INR INR PTT (Actin FS) Sodium Potassium Chloride Carbon Dioxide Anion Gap BUN Creatinine Creat Clearance w eGFR POC Glucometer 195 142 Random Glucose Calcium Phosphorus Magnesium Total Bilirubin Direct Bilirubin AST ALT Alkaline Phosphatase Ammonia Creatine Kinase Creatine Kinase Index CK-MB (CK-2) Total Protein Albumin Blood Type Antibody Screen Crossmatch 03/19/17 03/19/17 03/19/17 06:00 06:00 06:00 WBC RBC Hgb Hct MCV MCH MCHC RDW Plt Count MPV PT with INR 18.30 H INR 1.65 H PTT (Actin FS) 47.6 H Sodium 134 L Potassium 3.7 Chloride 91 L Carbon Dioxide 29 Anion Gap 14 BUN 47 H D Creatinine 5.0 H D Creat Clearance w eGFR 11.53 POC Glucometer Random Glucose 147 H Calcium 7.7 L Phosphorus 4.8 D Magnesium 2.3 Total Bilirubin 9.4 H Direct Bilirubin AST 1532 H ALT 1029 H Alkaline Phosphatase 123 H Ammonia Creatine Kinase Creatine Kinase Index CK-MB (CK-2) Total Protein 5.0 L Albumin 1.3 L Blood Type Antibody Screen Crossmatch 03/19/17 03/19/17 03/19/17 06:00 06:00 06:00 WBC RBC Hgb Hct MCV MCH MCHC RDW Plt Count MPV PT with INR INR PTT (Actin FS) Sodium Potassium Chloride Carbon Dioxide Anion Gap BUN Creatinine Creat Clearance w eGFR POC Glucometer Random Glucose Calcium Phosphorus Magnesium Total Bilirubin Direct Bilirubin 5.4 H AST ALT Alkaline Phosphatase Ammonia 31.40 Creatine Kinase 1060 H Creatine Kinase Index 0.1 CK-MB (CK-2) 1.838 Total Protein Albumin Blood Type Antibody Screen Crossmatch 03/19/17 11:22 WBC RBC Hgb Hct MCV MCH MCHC RDW Plt Count MPV PT with INR INR PTT (Actin FS) Sodium Potassium Chloride Carbon Dioxide Anion Gap BUN Creatinine Creat Clearance w eGFR POC Glucometer 216 Random Glucose Calcium Phosphorus Magnesium Total Bilirubin Direct Bilirubin AST ALT Alkaline Phosphatase Ammonia Creatine Kinase Creatine Kinase Index CK-MB (CK-2) Total Protein Albumin Blood Type Antibody Screen Crossmatch Problem List - Problems (1) Cellulitis Code(s): L03.90 - CELLULITIS, UNSPECIFIED Qualifiers: Site of cellulitis: extremity Site of cellulitis of extremity: upper extremity Laterality: left Qualified Code(s): L03.114 - Cellulitis of left upper limb (2) Acute renal failure (ARF) Code(s): N17.9 - ACUTE KIDNEY FAILURE, UNSPECIFIED (3) CAD (coronary artery disease) Code(s): I25.10 - ATHSCL HEART DISEASE OF [place] CORONARY ARTERY W/O ANG PCTRS (4) Gout Code(s): M10.9 - GOUT, UNSPECIFIED (5) Hypertension Code(s): I10 - ESSENTIAL (PRIMARY) HYPERTENSION (6) Hyponatremia Code(s): E87.1 - HYPO-OSMOLALITY AND HYPONATREMIA IMP: CAD S/P CABG x2 Gout on allopurinol/colchicine HTN HLD DM II Fatty liver BPH MSSA bacteremia ABX per ID Follow H&H O2 as needed HD per Renal Strict I & O Daily weight Glycemic control Local wound care VTE prophylaxis Dr Sandoval
[2017-03-20] MEDS ORDERED: PIPERACILLIN/TAZOBACTAM 2.25 GM VIAL IVPB ONE ×4 (02:15→21:04)
[2017-03-20] MEDS ORDERED: PT OWN MED DRAWER 7, Y5N ONE ×8 (02:15→21:04)
[2017-03-20] MEDS ORDERED: DEXTROSE 5%-WATER - 50 ML IVPB ONE ×4 (02:16→21:04)
[2017-03-20] MEDS: CLINDAMYCIN 300 MG PREMIX IVPB 50 ML IVPB SCH ×2 (02:24→08:08)
[2017-03-20] MEDS: PIPERACILLIN/TAZOB 2.25 GM 2.25 GM in DEXTROSE 5%-WATER - 50 ML IVPB SCH ×5 (02:26→21:09)
[2017-03-20] MEDS: NAFCILLIN - 2 GM in DEXTROSE 5%-WATER - 100 ML IVPB SCH ×6 (02:45→21:09)
[2017-03-20] MEDS: INSULIN SLIDING SCALE (NOVOLOG) 1 VIAL SQ SCH ×3 (06:28→17:09)
[2017-03-20] MEDS: SEVELAMER CARBONATE 800 MG TAB (FP) PO SCH ×3 (08:08→17:12)
[2017-03-20] MEDS: TORSEMIDE 20 MG TABLET (FP) PO SCH (09:55)
[2017-03-20] MEDS: CARVEDILOL 3.125 MG TABLET (FP) PO SCH ×2 (09:56→21:09)
[2017-03-20] MEDS: PANTOPRAZOLE 40 MG TABLET (FP) PO SCH (09:56)
[2017-03-20] MEDS: ALLOPURINOL 100 MG TABLET (FP) PO SCH (09:56)
[2017-03-20] MEDS: CHOLECALCIFEROL (VITAMIN D3) 1,000 UNIT TABLET (FP) PO SCH (09:56)
[2017-03-20] MEDS: LACTULOSE 20 GM/30 ML UDC (FOR ORAL USE ONLY) PO SCH (09:57)
[2017-03-20] MEDS: POLYETHYLENE GLYCOL 3350 119 GM BTL PO SCH (09:57)
--- NOTE | 2017-03-20 09:58 | PN ---
Progress Note (short form) - Note Progress Note: patient seen and examined this morning. Seem more awake and aware Was sending text messages on his phone. Appetite is still good. Had some loose bowel movements. No melena noted. no complaints of shortness of breath or chest pain. Low back pain. Moving his left hand and wrist much better. On exam: Vital Signs Temp 98.1 F 03/20/17 06:00 Pulse 72 03/20/17 06:00 Resp 16 03/20/17 06:00 BP 123/55 03/20/17 06:00 Pulse Ox 97 03/19/17 22:00 Intake & Output 03/19/17 03/19/17 03/20/17 11:59 23:59 11:59 Intake Total 604 620 640 Balance 604 620 640 Weight 245 lb 244 lb 14.4 oz Intake: IVPB 304 300 400 Oral 300 320 240 Other: Voiding Method Bedside Commode Bedside Commode Bowel Movement Yes No No # Bowel Movements 1 Weight Measurement Method Built in Bedscale Built in Bedscale patient is aware and alert. Sclerae slightly icteric Chest decreased breath sounds at the bases. Heart regular Abdomen slightly distended but nontender 3+ pedal edema from toes to mid posterior chest. Some left sacral iliac tenderness to palpation. Abnormal Lab Results 03/19/17 03/20/17 06:00 10:23 WBC 13.5 H RBC 2.54 L Hgb 7.7 L Hct 22.4 L RDW 16.2 H Direct Bilirubin 5.4 H still awaiting profile results from this morning. White count slightly higher and hemoglobin slightly lower at 7.7 g liver sonogram: Fatty liver with no evidence of biliary dilatation; cholelithiasis present Impression: Acute sepsis MSSA due to cellulitis right hand and wrist and elbow, resolving. Acute renal failure secondary to sepsis. Acute respiratory arrest. Acute cardiac ischemic event if the rash Ischemic liver enzyme elevation with current jaundice. History of coronary artery bypass graft x2. GI bleed with transfusions. Persistent marked total body edema. Plan: Daily dialysis Followup lab Followup renal cardiac infectious disease GI and pulmonary consultants. continue IV antibiotics Problem List - Problems (1) Cellulitis Code(s): L03.90 - CELLULITIS, UNSPECIFIED Qualifiers: Site of cellulitis: extremity Site of cellulitis of extremity: upper extremity Laterality: left Qualified Code(s): L03.114 - Cellulitis of left upper limb (2) GI bleed Code(s): K92.2 - GASTROINTESTINAL HEMORRHAGE, UNSPECIFIED Qualifiers: GI bleed type/associated pathology: unspecified gastrointestinal hemorrhage type Qualified Code(s): K92.2 - Gastrointestinal hemorrhage, unspecified (3) Acute renal failure (ARF) Code(s): N17.9 - ACUTE KIDNEY FAILURE, UNSPECIFIED Qualifiers: Acute renal failure type: unspecified Qualified Code(s): N17.9 - Acute kidney failure, unspecified (4) CAD (coronary artery disease) Code(s): I25.10 - ATHSCL HEART DISEASE OF [place] CORONARY ARTERY W/O ANG PCTRS Qualifiers: Coronary Disease-Associated Artery/Lesion type: [place] artery [place] vs. transplanted heart: [place] heart Associated angina: with unstable angina Qualified Code(s): I25.110 - Atherosclerotic heart disease of [place] coronary artery with unstable angina pectoris (5) Gout Code(s): M10.9 - GOUT, UNSPECIFIED (6) Hypertension Code(s): I10 - ESSENTIAL (PRIMARY) HYPERTENSION Qualifiers: Hypertension type: essential hypertension Qualified Code(s): I10 - Essential (primary) hypertension (7) Anemia Code(s): D64.9 - ANEMIA, UNSPECIFIED Qualifiers: Iron deficiency anemia type: chronic blood loss (8) Leukocytosis Code(s): D72.829 - ELEVATED WHITE BLOOD CELL COUNT, UNSPECIFIED (9) Respiratory arrest before cardiac arrest Code(s): I46.9 - CARDIAC ARREST, CAUSE UNSPECIFIED R09.2 - RESPIRATORY ARREST (10) Respiratory arrest Code(s): R09.2 - RESPIRATORY ARREST
[2017-03-20] MEDS: VITAMIN E 400 INTERNATIONAL-UNITS CAPSULE (FP) PO SCH (10:00)
[2017-03-20] MEDS: HEPARIN NA (PORCINE) 5,000 UNITS/ML 1ML VIAL SQ SCH ×2 (10:06→21:09)
[2017-03-20] MEDS: oxyCODONE HCL 5 MG TABLET PO PRN ×3 (10:11→21:09)
[2017-03-20 10:52] LABS: MCH 30.3 pg (25.7-33.7); MCHC 34.2 g/dl (32.0-35.9); MEAN CELL VOLUME 88.4 fl (80-96); MEAN PLT VOLUME 8.4 fl (7.5-11.1); PLATELET COUNT 221 K/MM3 (134-434); RDW 16.2 % (11.9-15.9); WHITE BLOOD COUNT 13.5 K/mm3 (4.0-10.0)
[2017-03-20 11:05] LABS: INR 1.69 (0.82-1.09); PROTHROMBIN TIME (PATIENT) 18.8 SEC (9.98-11.88)
[2017-03-20 11:20] LABS: ALBUMIN 1.4 g/dl (3.4-5.0); ANION GAP 13 (8-16); BILIRUBIN,TOTAL 10.2 mg/dL (0.2-1.0); CALCIUM 7.4 mg/dL (8.5-10.1); CO2 27 mmol/L (21-32); CREATININE 5.7 mg/dL (0.7-1.3); GLUCOSE,RANDOM 189 mg/dL (74-106); TOT PROT 5.5 g/dl (6.4-8.2)
[2017-03-20 11:33] LABS: ALK PHOS 127 U/L (45-117); CPK 993 IU/L (39-308)
[2017-03-20 11:36] LABS: SGOT/AST 682 U/L (15-37); SGPT/ALT 706 U/L (12-78)
--- NOTE | 2017-03-20 12:12 | PN ---
Progress Note, Physician History of Present Illness: Remains comfortable on NC, hemodynamically stable. Undergoing HD, urinating more. - Current Medication List Current Medications: Active Medications Allopurinol (Zyloprim -) 100 mg PO DAILY [facility] Last Admin: 03/20/17 09:56 Dose: 100 mg Carvedilol (Coreg -) 3.125 mg PO BID [facility] Last Admin: 03/20/17 09:56 Dose: 3.125 mg Cholecalciferol (Vitamin D3 -) 2,000 unit PO DAILY [facility] Last Admin: 03/20/17 09:56 Dose: 2,000 unit Heparin Sodium (Porcine) (Heparin -) 5,000 unit SQ BID [facility] Last Admin: 03/20/17 10:06 Dose: 5,000 unit Hydrocortisone (Hytone 1% Cream -) 1 applic TP BID PRN PRN Reason: FOR ITCHING Last Admin: 03/16/17 14:25 Dose: 1 applic IV Flush (Picc Line Flush) 8 ml IVPUSH PRN PRN PRN Reason: Protocol Nafcillin Sodium 2 gm/ (Dextrose) 100 mls @ 100 mls/hr IVPB Q4H-IV [facility] PRN Reason: Protocol Last Admin: 03/20/17 09:55 Dose: 100 mls/hr Clindamycin Phosphate (Cleocin 300 Mg Premix Ivpb) 50 mls @ 104 mls/hr IVPB Q6H -IV [facility] Last Admin: 03/20/17 08:08 Dose: 104 mls/hr Piperacillin Sod/Tazobactam (Sod 2.25 gm/ Dextrose) 50 mls @ 100 mls/hr IVPB Q6H-IV [facility] Last Admin: 03/20/17 08:08 Dose: 100 mls/hr Insulin Aspart (Novolog Vial Sliding Scale -) 1 vial SQ TIDAC [facility] PRN Reason: Protocol Last Admin: 03/20/17 06:28 Dose: Not Given Lactulose (Cephulac (Oral Use)) 30 gm PO DAILY [facility] Last Admin: 03/20/17 09:57 Dose: Not Given Ondansetron HCl (Zofran Injection) 4 mg IVPB Q8H PRN PRN Reason: NAUSEA Oxycodone HCl (Roxicodone -) 10 mg PO Q4H PRN PRN Reason: PAIN Last Admin: 03/20/17 10:11 Dose: 10 mg Pantoprazole Sodium (Protonix -) 40 mg PO DAILY [facility] Last Admin: 03/20/17 09:56 Dose: 40 mg Polyethylene Glycol (Miralax (For Daily Use) -) 17 gm PO DAILY [facility] Last Admin: 03/20/17 09:57 Dose: Not Given Sevelamer Carbonate (Renvela -) 800 mg PO TIDCM [facility] Last Admin: 03/20/17 08:08 Dose: 800 mg Torsemide (Demadex -) 40 mg PO DAILY [facility] Last Admin: 03/20/17 09:55 Dose: 40 mg Vitamin E (Vitamin E -) 400 unit PO DAILY [facility] Last Admin: 03/20/17 10:00 Dose: Not Given - Objective Vital Signs: Vital Signs Temperature 98.1 F 03/20/17 06:00 Pulse Rate 72 03/20/17 06:00 Respiratory Rate 16 03/20/17 06:00 Blood Pressure 123/55 03/20/17 06:00 O2 Sat by Pulse Oximetry (%) 97 03/19/17 22:00 Constitutional: Yes: No Distress, Calm Neck: Yes: Supple Cardiovascular: Yes: Regular Rate and Rhythm Respiratory: Yes: Regular, Diminished, On Nasal O2 Gastrointestinal: Yes: Normal Bowel Sounds, Soft, Abdomen, Obese Edema: Yes Edema: LLE: 1+, RLE: 1+ Labs: CBC, BMP 03/20/17 10:23 03/20/17 10:23 INR, PTT INR 1.69 (0.82-1.09) H 03/20/17 10:23 Problem List - Problems (1) Acute renal failure (ARF) Code(s): N17.9 - ACUTE KIDNEY FAILURE, UNSPECIFIED Qualifiers: Acute renal failure type: unspecified Qualified Code(s): N17.9 - Acute kidney failure, unspecified (2) CAD (coronary artery disease) Code(s): I25.10 - ATHSCL HEART DISEASE OF [place] CORONARY ARTERY W/O ANG PCTRS Qualifiers: Coronary Disease-Associated Artery/Lesion type: [place] artery [place] vs. transplanted heart: [place] heart Associated angina: with unstable angina Qualified Code(s): I25.110 - Atherosclerotic heart disease of [place] coronary artery with unstable angina pectoris (3) Cellulitis Code(s): L03.90 - CELLULITIS, UNSPECIFIED Qualifiers: Site of cellulitis: extremity Site of cellulitis of extremity: upper extremity Laterality: left Qualified Code(s): L03.114 - Cellulitis of left upper limb (4) GI bleed Code(s): K92.2 - GASTROINTESTINAL HEMORRHAGE, UNSPECIFIED Qualifiers: GI bleed type/associated pathology: unspecified gastrointestinal hemorrhage type Qualified Code(s): K92.2 - Gastrointestinal hemorrhage, unspecified (5) Hypertension Code(s): I10 - ESSENTIAL (PRIMARY) HYPERTENSION Qualifiers: Hypertension type: essential hypertension Qualified Code(s): I10 - Essential (primary) hypertension (6) MSSA (methicillin susceptible Staphylococcus aureus) infection Code(s): A49.01 - METHICILLIN SUSCEP STAPH INFECTION, UNSP SITE (7) Respiratory arrest before cardiac arrest Code(s): I46.9 - CARDIAC ARREST, CAUSE UNSPECIFIED R09.2 - RESPIRATORY ARREST (8) Hyperlipidemia Code(s): E78.5 - HYPERLIPIDEMIA, UNSPECIFIED Qualifiers: Hyperlipidemia type: pure hypercholesterolemia Qualified Code(s): E78.00 - Pure hypercholesterolemia, unspecified; E78.0 - Pure hypercholesterolemia (9) Cholestasis Code(s): K83.1 - OBSTRUCTION OF BILE DUCT (10) Anemia Code(s): D64.9 - ANEMIA, UNSPECIFIED Qualifiers: Iron deficiency anemia type: chronic blood loss Assessment/Plan 03/17/2017 CHEN 1. LV wall motion abnormality with moderate reduction in LV EF, estimated between 35-40% 2. MAC 3. Normal Mitral valve leaflets with no vegitation, trace to mild MR 4. AV sclerosis with no vegitation, no AI 5. Normal Tricuspid leaflets with no vegitation, mild TR 6. Faintly visualized Pulmonic valve with no vegitation 7. Intact atrial septum with no intra-cardiac shunting by color flow 8. Mild to degree of layered athero-sclerosis in the descending thoracic aorta and the distal thoracic arch 1. Cardiopulmonary arrest with PEA (pulse-less Electrical Activity) post resuscitation, respiratory failure/extubated 2. Abnormal EKG, right axis deviation with RSCD (unclear underlying atrial rhythm), resolved most likely related profound metabolic/lactic acidosis since resolved 3. CAD post PR/CABG angina pectoris with evidence of demand ischemic injury in context of acute pulmonary edema 4. Moderate LV systolic dysfunction with acute class III-IV NYHA classification LV failure, acute pulmonary edema, resolving 5. Acute renal failure on HD 6. Anemia, recent GI bleed related to peptic ulcer disease, post transfusion 7. HTN, hypotension resolved off pressors 8. DM 9. Hypercholesterolemia 10. Cellulitis with recent MSSA sepsis syndrome with septic shock 11. Hyponatremia 12. Cholestatic LFTs, suspect ischemia PLAN: 1. Trend LFTs already peaked on downtrend 2. Continue Heparin SQ, start Plavix 75 qd without ASA given recent GI bleed once hemostasis assured, maintain on Protonix 40 qd 3. HD per the renal service with ultrafiltration and Demadex 40 qd 4. Continue Coreg 3.125 bid with uptitration as tolerated, d/c Lipitor 40 qhs awaiting LFTs stabilization 5. Transfusion prn to maintain Hg equal or > 8.0 6. Complete abx course per ID
[2017-03-20 12:13] LABS: TOTAL CELLS COUNTED 100
[2017-03-20 12:14] LABS: ANISOCYTOSIS 1+; MACROCYTOSIS 1+; MYELOCYTE 2 % (0-2)
[2017-03-20 12:15] LABS: ACANTHOCYTES 1+; BURR CELLS 2+
[2017-03-20] MEDS ORDERED: HEPARIN NA (PORCINE) 5,000 UNITS/ML 1ML VIAL IVPUSH PRN ×2 (12:26)
[2017-03-20] MEDS ORDERED: ONDANSETRON 4 MG/2 ML VIAL IVPB PRN (12:26)
[2017-03-20] MEDS ORDERED: PICC LINE 8 ML FLUSH PROTOCOL IVPUSH PRN (12:26)
--- NOTE | 2017-03-20 12:58 | PN ---
Progress Note (short form) - Note Progress Note: Renal Follow up for JOE Pt seen and examined in Tele awake and alert sitting in chair made 350cc of urine this am denies any sob at the present time no chest pain or abd pain for HD today having loose stools but was on lactulose Vital Signs Temperature 98.1 F 03/20/17 06:00 Pulse Rate 72 03/20/17 06:00 Respiratory Rate 16 03/20/17 06:00 Blood Pressure 123/55 03/20/17 06:00 O2 Sat by Pulse Oximetry (%) 97 03/19/17 22:00 Intake & Output 03/17/17 03/18/17 03/19/17 03/20/17 23:59 23:59 23:59 23:59 Intake Total 1286 1004 1224 640 Output Total 0 425 350 Balance 7172 973 6035 290 Weight 249 lb 3.2 oz 245 lb 244 lb 14.4 oz Gen: NAD CVS: RRR Lungs: CTA Abd: soft NT/ND Ext: No LE edema, left wrist and hand swollen, eyrthema improved CBC, BMP 03/20/17 10:23 03/20/17 10:23 Laboratory Tests 03/20/17 10:23 Calcium 7.4 L Current Medications Allopurinol (Zyloprim -) 100 mg PO DAILY [facility] Carvedilol (Coreg -) 3.125 mg PO BID [facility] Cholecalciferol (Vitamin D3 -) 2,000 unit PO DAILY [facility] Heparin Sodium (Porcine) (Heparin -) 5,000 unit SQ BID [facility] Last Admin: 03/20/17 10:06 Dose: 5,000 unit Heparin Sodium (Porcine) (Heparin -) 1,000 unit IVPUSH PRN PRN PRN Reason: Heparin Heparin Sodium (Porcine) (Heparin -) 5,000 unit IVPUSH PRN PRN PRN Reason: Heparin Hydrocortisone (Hytone 1% Cream -) 1 applic TP BID PRN PRN Reason: FOR ITCHING IV Flush (Picc Line Flush) 8 ml IVPUSH PRN PRN PRN Reason: Protocol Piperacillin Sod/Tazobactam (Sod 2.25 gm/ Dextrose) 50 mls @ 100 mls/hr IVPB Q6H-IV [facility] Last Admin: 03/20/17 08:08 Dose: 100 mls/hr Clindamycin Phosphate (Cleocin 300 Mg Premix Ivpb) 50 mls @ 104 mls/hr IVPB Q6H -IV [facility] Nafcillin Sodium 2 gm/ (Dextrose) 100 mls @ 100 mls/hr IVPB Q4H-IV [facility] PRN Reason: Protocol Insulin Aspart (Novolog Vial Sliding Scale -) 1 vial SQ TIDAC [facility] PRN Reason: Protocol Lactulose (Cephulac (Oral Use)) 30 gm PO DAILY [facility] Last Admin: 03/20/17 09:57 Dose: Not Given Ondansetron HCl (Zofran Injection) 4 mg IVPB Q8H PRN PRN Reason: NAUSEA Oxycodone HCl (Roxicodone -) 10 mg PO Q4H PRN PRN Reason: PAIN Pantoprazole Sodium (Protonix -) 40 mg PO DAILY [facility] Polyethylene Glycol (Miralax (For Daily Use) -) 17 gm PO DAILY [facility] Sevelamer Carbonate (Renvela -) 800 mg PO TIDCM [facility] Torsemide (Demadex -) 40 mg PO DAILY [facility] Vitamin E (Vitamin E -) 400 unit PO DAILY [facility] A/P 71 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 #PEA Arrest/Resp Failure ECHO shows reduced LVEF Doppler of LE negative continue ICU care Broad spectrum Abx as per ICU and ID #Oliguric Renal Failure with volume overload Urine output improving will require HD today for management fo volume will plan for additional isolated UF tomorrow as pt remains very volume overloaded #Anemia in setting of JOE/Acute Infection with recent EGD that showed ulcers to get additional 2 units of prbc today with HD Aubrey Acharya DO Problem List - Problems (1) Cellulitis Code(s): L03.90 - CELLULITIS, UNSPECIFIED Qualifiers: Site of cellulitis: extremity Site of cellulitis of extremity: upper extremity Laterality: left Qualified Code(s): L03.114 - Cellulitis of left upper limb (2) Acute renal failure (ARF) Code(s): N17.9 - ACUTE KIDNEY FAILURE, UNSPECIFIED Qualifiers: Acute renal failure type: unspecified Qualified Code(s): N17.9 - Acute kidney failure, unspecified (3) CAD (coronary artery disease) Code(s): I25.10 - ATHSCL HEART DISEASE OF [place] CORONARY ARTERY W/O ANG PCTRS Qualifiers: Coronary Disease-Associated Artery/Lesion type: [place] artery [place] vs. transplanted heart: [place] heart Associated angina: with unstable angina Qualified Code(s): I25.110 - Atherosclerotic heart disease of [place] coronary artery with unstable angina pectoris (4) Hypertension Code(s): I10 - ESSENTIAL (PRIMARY) HYPERTENSION Qualifiers: Hypertension type: essential hypertension Qualified Code(s): I10 - Essential (primary) hypertension (5) Gout Code(s): M10.9 - GOUT, UNSPECIFIED (6) Leukocytosis Code(s): D72.829 - ELEVATED WHITE BLOOD CELL COUNT, UNSPECIFIED
[2017-03-20 14:45] LABS: MAGNESIUM 2.1 mg/dL (1.8-2.4); PHOSPHOROUS 4.9 mg/dL (2.5-4.9)
[2017-03-20] MEDS ORDERED: CLINDAMYCIN 300 MG PREMIX IVPB 50 ML IVPB SCH (15:00)
--- NOTE | 2017-03-20 16:43 | PN ---
Progress Note, Physician History of Present Illness: stable doing better dialysis wbc slightly high - Current Medication List Current Medications: Active Medications Allopurinol (Zyloprim -) 100 mg PO DAILY [facility] Carvedilol (Coreg -) 3.125 mg PO BID [facility] Cholecalciferol (Vitamin D3 -) 2,000 unit PO DAILY [facility] Heparin Sodium (Porcine) (Heparin -) 5,000 unit SQ BID [facility] Last Admin: 03/20/17 10:06 Dose: 5,000 unit Heparin Sodium (Porcine) (Heparin -) 1,000 unit IVPUSH PRN PRN PRN Reason: Heparin Heparin Sodium (Porcine) (Heparin -) 5,000 unit IVPUSH PRN PRN PRN Reason: Heparin Hydrocortisone (Hytone 1% Cream -) 1 applic TP BID PRN PRN Reason: FOR ITCHING IV Flush (Picc Line Flush) 8 ml IVPUSH PRN PRN PRN Reason: Protocol Piperacillin Sod/Tazobactam (Sod 2.25 gm/ Dextrose) 50 mls @ 100 mls/hr IVPB Q6H-IV [facility] Last Admin: 03/20/17 15:00 Dose: Not Given Clindamycin Phosphate (Cleocin 300 Mg Premix Ivpb) 50 mls @ 104 mls/hr IVPB Q6H -IV [facility] Last Admin: 03/20/17 15:00 Dose: Not Given Nafcillin Sodium 2 gm/ (Dextrose) 100 mls @ 100 mls/hr IVPB Q4H-IV [facility] PRN Reason: Protocol Last Admin: 03/20/17 14:00 Dose: Not Given Insulin Aspart (Novolog Vial Sliding Scale -) 1 vial SQ TIDAC [facility] PRN Reason: Protocol Lactulose (Cephulac (Oral Use)) 30 gm PO DAILY [facility] Last Admin: 03/20/17 09:57 Dose: Not Given Ondansetron HCl (Zofran Injection) 4 mg IVPB Q8H PRN PRN Reason: NAUSEA Oxycodone HCl (Roxicodone -) 10 mg PO Q4H PRN PRN Reason: PAIN Pantoprazole Sodium (Protonix -) 40 mg PO DAILY [facility] Polyethylene Glycol (Miralax (For Daily Use) -) 17 gm PO DAILY [facility] Sevelamer Carbonate (Renvela -) 800 mg PO TIDCM [facility] Torsemide (Demadex -) 40 mg PO DAILY [facility] Vitamin E (Vitamin E -) 400 unit PO DAILY [facility] - Objective Vital Signs: Vital Signs Temperature 98.0 F 03/20/17 14:00 Pulse Rate 79 03/20/17 15:55 Respiratory Rate 18 03/20/17 15:55 Blood Pressure 142/82 03/20/17 15:55 O2 Sat by Pulse Oximetry (%) 97 03/19/17 22:00 Constitutional: Yes: No Distress, Calm Cardiovascular: Yes: Regular Rate and Rhythm Respiratory: Yes: Regular, CTA Bilaterally Gastrointestinal: Yes: Normal Bowel Sounds, Soft Musculoskeletal: Yes: WNL Extremities: Yes: Other (left wrist swelling) Neurological: Yes: Alert, Oriented Psychiatric: Yes: Alert, Oriented Labs: CBC, BMP 03/20/17 10:23 03/20/17 10:23 INR, PTT INR 1.69 (0.82-1.09) H 03/20/17 10:23 Assessment/Plan sepsis septic left wrist joint gm positive bacteremia fever tenderness leukocytosis nstemi plan conitnue abx cx reports noted close watch patient currently getting dialysis will stop clinda
--- NOTE | 2017-03-20 16:45 | PN ---
Progress Note, Physician History of Present Illness: patient stable being dialysed wbc marginally up - Current Medication List Current Medications: Active Medications Allopurinol (Zyloprim -) 100 mg PO DAILY [facility] Carvedilol (Coreg -) 3.125 mg PO BID [facility] Cholecalciferol (Vitamin D3 -) 2,000 unit PO DAILY [facility] Heparin Sodium (Porcine) (Heparin -) 5,000 unit SQ BID [facility] Last Admin: 03/20/17 10:06 Dose: 5,000 unit Heparin Sodium (Porcine) (Heparin -) 1,000 unit IVPUSH PRN PRN PRN Reason: Heparin Heparin Sodium (Porcine) (Heparin -) 5,000 unit IVPUSH PRN PRN PRN Reason: Heparin Hydrocortisone (Hytone 1% Cream -) 1 applic TP BID PRN PRN Reason: FOR ITCHING IV Flush (Picc Line Flush) 8 ml IVPUSH PRN PRN PRN Reason: Protocol Piperacillin Sod/Tazobactam (Sod 2.25 gm/ Dextrose) 50 mls @ 100 mls/hr IVPB Q6H-IV [facility] Last Admin: 03/20/17 15:00 Dose: Not Given Nafcillin Sodium 2 gm/ (Dextrose) 100 mls @ 100 mls/hr IVPB Q4H-IV [facility] PRN Reason: Protocol Last Admin: 03/20/17 14:00 Dose: Not Given Insulin Aspart (Novolog Vial Sliding Scale -) 1 vial SQ TIDAC [facility] PRN Reason: Protocol Lactulose (Cephulac (Oral Use)) 30 gm PO DAILY [facility] Last Admin: 03/20/17 09:57 Dose: Not Given Ondansetron HCl (Zofran Injection) 4 mg IVPB Q8H PRN PRN Reason: NAUSEA Oxycodone HCl (Roxicodone -) 10 mg PO Q4H PRN PRN Reason: PAIN Pantoprazole Sodium (Protonix -) 40 mg PO DAILY [facility] Polyethylene Glycol (Miralax (For Daily Use) -) 17 gm PO DAILY [facility] Sevelamer Carbonate (Renvela -) 800 mg PO TIDCM [facility] Torsemide (Demadex -) 40 mg PO DAILY [facility] Vitamin E (Vitamin E -) 400 unit PO DAILY [facility] - Objective Vital Signs: Vital Signs Temperature 98.0 F 03/20/17 14:00 Pulse Rate 79 03/20/17 15:55 Respiratory Rate 18 03/20/17 15:55 Blood Pressure 142/82 03/20/17 15:55 O2 Sat by Pulse Oximetry (%) 97 03/19/17 22:00 Constitutional: Yes: No Distress, Calm Cardiovascular: Yes: Regular Rate and Rhythm Respiratory: Yes: Regular, CTA Bilaterally Gastrointestinal: Yes: Normal Bowel Sounds, Soft Musculoskeletal: Yes: Other Extremities: Yes: Other Neurological: Yes: Alert, Oriented Psychiatric: Yes: Alert, Oriented Labs: CBC, BMP 03/20/17 10:23 03/20/17 10:23 INR, PTT INR 1.69 (0.82-1.09) H 03/20/17 10:23 Assessment/Plan sepsis septic left wrist joint gm positive bacteremia fever tenderness leukocytosis nstemi plan conitnue abx cx reports noted close watch patient currently getting dialysis will stop clinda tomorrow close watch on wbc
[2017-03-21] MEDS: NAFCILLIN - 2 GM in DEXTROSE 5%-WATER - 100 ML IVPB SCH ×7 (01:05→21:33)
[2017-03-21] MEDS: oxyCODONE HCL 5 MG TABLET PO PRN ×5 (01:05→21:27)
[2017-03-21] MEDS ORDERED: DEXTROSE 5%-WATER - 50 ML IVPB ONE ×4 (03:32→21:25)
[2017-03-21] MEDS ORDERED: PIPERACILLIN/TAZOBACTAM 2.25 GM VIAL IVPB ONE ×4 (03:32→21:25)
[2017-03-21] MEDS: PIPERACILLIN/TAZOB 2.25 GM 2.25 GM in DEXTROSE 5%-WATER - 50 ML IVPB SCH ×4 (03:55→21:33)
[2017-03-21 05:33] LABS: MCH 29.5 pg (25.7-33.7); MCHC 35.1 g/dl (32.0-35.9); PLATELET COUNT 226 K/MM3 (134-434); WHITE BLOOD COUNT 14.2 K/mm3 (4.0-10.0)
[2017-03-21 06:00] LABS: ANION GAP 8 (8-16); CALCIUM 7.6 mg/dL (8.5-10.1); CO2 30 mmol/L (21-32); CREATININE 4.1 mg/dL (0.7-1.3); GLUCOSE,RANDOM 166 mg/dL (74-106)
[2017-03-21] MEDS: INSULIN SLIDING SCALE (NOVOLOG) 1 VIAL SQ SCH ×3 (06:29→17:33)
--- NOTE | 2017-03-21 07:11 | PN ---
Progress Note (short form) - Note Progress Note: Renal Follow up for JOE Pt seen and examined in Tele awake and alert no overnight events s/p HD and prbc transfusion yesterday Vital Signs Temperature 98.8 F 03/21/17 06:00 Pulse Rate 74 03/21/17 06:00 Respiratory Rate 20 03/21/17 06:00 Blood Pressure 121/63 03/21/17 06:00 O2 Sat by Pulse Oximetry (%) 99 03/20/17 21:00 Intake & Output 03/18/17 03/19/17 03/20/17 03/21/17 23:59 23:59 23:59 23:59 Intake Total 1004 1224 1814 370 Output Total 425 350 0 Balance 579 1224 1464 370 Weight 245 lb 244 lb 14.4 oz 247 lb 4.8 oz Gen: NAD CVS: RRR Lungs: CTA Abd: soft NT/ND Ext: No LE edema, left wrist and hand swollen, eyrthema improved CBC, BMP 03/21/17 05:22 03/21/17 05:22 Laboratory Tests 03/21/17 05:22 Calcium 7.6 L Current Medications Allopurinol (Zyloprim -) 100 mg PO DAILY [facility] Carvedilol (Coreg -) 3.125 mg PO BID [facility] Last Admin: 03/20/17 21:09 Dose: 3.125 mg Cholecalciferol (Vitamin D3 -) 2,000 unit PO DAILY [facility] Heparin Sodium (Porcine) (Heparin -) 5,000 unit SQ BID [facility] Last Admin: 03/20/17 21:09 Dose: 5,000 unit Hydrocortisone (Hytone 1% Cream -) 1 applic TP BID PRN PRN Reason: FOR ITCHING IV Flush (Picc Line Flush) 8 ml IVPUSH PRN PRN PRN Reason: Protocol Piperacillin Sod/Tazobactam (Sod 2.25 gm/ Dextrose) 50 mls @ 100 mls/hr IVPB Q6H-IV [facility] Last Admin: 03/21/17 03:55 Dose: 100 mls/hr Nafcillin Sodium 2 gm/ (Dextrose) 100 mls @ 100 mls/hr IVPB Q4H-IV [facility] PRN Reason: Protocol Last Admin: 03/21/17 05:12 Dose: 100 mls/hr Insulin Aspart (Novolog Vial Sliding Scale -) 1 vial SQ TIDAC [facility] PRN Reason: Protocol Last Admin: 03/21/17 06:29 Dose: 2 units Lactulose (Cephulac (Oral Use)) 30 gm PO DAILY [facility] Last Admin: 03/20/17 09:57 Dose: Not Given Ondansetron HCl (Zofran Injection) 4 mg IVPB Q8H PRN PRN Reason: NAUSEA Oxycodone HCl (Roxicodone -) 10 mg PO Q4H PRN PRN Reason: PAIN Last Admin: 03/21/17 05:12 Dose: 10 mg Pantoprazole Sodium (Protonix -) 40 mg PO DAILY [facility] Polyethylene Glycol (Miralax (For Daily Use) -) 17 gm PO DAILY [facility] Sevelamer Carbonate (Renvela -) 800 mg PO TIDCM [facility] Last Admin: 03/20/17 17:12 Dose: 800 mg Torsemide (Demadex -) 40 mg PO DAILY [facility] Vitamin E (Vitamin E -) 400 unit PO DAILY [facility] A/P 71 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 #PEA Arrest/Resp Failure ECHO shows reduced LVEF Doppler of LE negative Vitals stable now clinically improved tele monitoring #Oliguric Renal Failure with volume overload s/p HD yesterday UF today with goal removal of 2.5L fluid restriction Na restriction trend daily weights #Anemia in setting of JOE/Acute Infection with recent EGD that showed ulcers s/p prbc transfusion trend cbc Aubrey Acharya DO Problem List - Problems (1) Cellulitis Code(s): L03.90 - CELLULITIS, UNSPECIFIED Qualifiers: Site of cellulitis: extremity Site of cellulitis of extremity: upper extremity Laterality: left Qualified Code(s): L03.114 - Cellulitis of left upper limb (2) Acute renal failure (ARF) Code(s): N17.9 - ACUTE KIDNEY FAILURE, UNSPECIFIED Qualifiers: Acute renal failure type: unspecified Qualified Code(s): N17.9 - Acute kidney failure, unspecified (3) CAD (coronary artery disease) Code(s): I25.10 - ATHSCL HEART DISEASE OF [place] CORONARY ARTERY W/O ANG PCTRS Qualifiers: Coronary Disease-Associated Artery/Lesion type: [place] artery [place] vs. transplanted heart: [place] heart Associated angina: with unstable angina Qualified Code(s): I25.110 - Atherosclerotic heart disease of [place] coronary artery with unstable angina pectoris (4) Hypertension Code(s): I10 - ESSENTIAL (PRIMARY) HYPERTENSION Qualifiers: Hypertension type: essential hypertension Qualified Code(s): I10 - Essential (primary) hypertension (5) Gout Code(s): M10.9 - GOUT, UNSPECIFIED (6) Leukocytosis Code(s): D72.829 - ELEVATED WHITE BLOOD CELL COUNT, UNSPECIFIED
[2017-03-21 08:53] LABS: PHOSPHOROUS 3.8 mg/dL (2.5-4.9)
[2017-03-21] MEDS ORDERED: PT OWN MED DRAWER 7, Y5N ONE ×5 (10:22→21:25)
[2017-03-21] MEDS: CARVEDILOL 3.125 MG TABLET (FP) PO SCH ×2 (11:21→21:27)
[2017-03-21] MEDS: PANTOPRAZOLE 40 MG TABLET (FP) PO SCH (11:21)
[2017-03-21] MEDS: CHOLECALCIFEROL (VITAMIN D3) 1,000 UNIT TABLET (FP) PO SCH (11:21)
[2017-03-21] MEDS: SEVELAMER CARBONATE 800 MG TAB (FP) PO SCH ×3 (11:21→17:33)
[2017-03-21] MEDS: TORSEMIDE 20 MG TABLET (FP) PO SCH (11:22)
[2017-03-21] MEDS: LACTULOSE 20 GM/30 ML UDC (FOR ORAL USE ONLY) PO SCH (11:22)
[2017-03-21] MEDS: ALLOPURINOL 100 MG TABLET (FP) PO SCH (11:22)
[2017-03-21] MEDS: VITAMIN E 400 INTERNATIONAL-UNITS CAPSULE (FP) PO SCH (11:23)
[2017-03-21] MEDS: POLYETHYLENE GLYCOL 3350 119 GM BTL PO SCH (11:24)
[2017-03-21] MEDS: HEPARIN NA (PORCINE) 5,000 UNITS/ML 1ML VIAL SQ SCH ×2 (11:24→21:33)
--- NOTE | 2017-03-21 11:53 | PN ---
Progress Note, Physician History of Present Illness: Pt is s/p HD today. States he feels "ok". Denies fever, has been having normal BMs. No cough or respiratory distress. - Current Medication List Current Medications: Active Medications Allopurinol (Zyloprim -) 100 mg PO DAILY [facility] Last Admin: 03/21/17 11:22 Dose: 100 mg Carvedilol (Coreg -) 3.125 mg PO BID [facility] Last Admin: 03/21/17 11:21 Dose: 3.125 mg Cholecalciferol (Vitamin D3 -) 2,000 unit PO DAILY [facility] Last Admin: 03/21/17 11:21 Dose: 2,000 unit Heparin Sodium (Porcine) (Heparin -) 5,000 unit SQ BID [facility] Last Admin: 03/21/17 11:24 Dose: 5,000 unit Hydrocortisone (Hytone 1% Cream -) 1 applic TP BID PRN PRN Reason: FOR ITCHING IV Flush (Picc Line Flush) 8 ml IVPUSH PRN PRN PRN Reason: Protocol Piperacillin Sod/Tazobactam (Sod 2.25 gm/ Dextrose) 50 mls @ 100 mls/hr IVPB Q6H-IV [facility] Last Admin: 03/21/17 11:23 Dose: 100 mls/hr Nafcillin Sodium 2 gm/ (Dextrose) 100 mls @ 100 mls/hr IVPB Q4H-IV [facility] PRN Reason: Protocol Last Admin: 03/21/17 05:12 Dose: 100 mls/hr Insulin Aspart (Novolog Vial Sliding Scale -) 1 vial SQ TIDAC [facility] PRN Reason: Protocol Last Admin: 03/21/17 06:29 Dose: 2 units Lactulose (Cephulac (Oral Use)) 30 gm PO DAILY [facility] Last Admin: 03/21/17 11:22 Dose: 30 gm Ondansetron HCl (Zofran Injection) 4 mg IVPB Q8H PRN PRN Reason: NAUSEA Oxycodone HCl (Roxicodone -) 10 mg PO Q4H PRN PRN Reason: PAIN Last Admin: 03/21/17 10:52 Dose: 10 mg Pantoprazole Sodium (Protonix -) 40 mg PO DAILY [facility] Last Admin: 03/21/17 11:21 Dose: 40 mg Polyethylene Glycol (Miralax (For Daily Use) -) 17 gm PO DAILY [facility] Last Admin: 03/21/17 11:24 Dose: 17 gm Sevelamer Carbonate (Renvela -) 800 mg PO TIDCM [facility] Last Admin: 03/21/17 11:24 Dose: 800 mg Torsemide (Demadex -) 40 mg PO DAILY [facility] Last Admin: 03/21/17 11:22 Dose: 40 mg Vitamin E (Vitamin E -) 400 unit PO DAILY [facility] Last Admin: 03/21/17 11:23 Dose: 400 unit - Objective Vital Signs: Vital Signs Temperature 98.4 F 03/21/17 07:55 Pulse Rate 70 03/21/17 10:42 Respiratory Rate 18 03/21/17 10:42 Blood Pressure 122/72 03/21/17 10:42 O2 Sat by Pulse Oximetry (%) 99 03/20/17 21:00 Constitutional: Yes: No Distress, Calm Eyes: Yes: WNL HENT: Yes: WNL Neck: Yes: WNL Cardiovascular: Yes: Regular Rate and Rhythm Respiratory: Yes: CTA Bilaterally Gastrointestinal: Yes: Normal Bowel Sounds, Soft Extremities: Yes: Erythema (Decrease in Lt wrist erythema/edema, less tenderness ) Edema: Yes (thigh/scrotal edema) Neurological: Yes: Alert, Oriented Psychiatric: Yes: WNL Labs: CBC, BMP 03/21/17 05:22 03/21/17 05:22 INR, PTT INR 1.69 (0.82-1.09) H 03/20/17 10:23 - ....Imaging Chest X-ray: Report Reviewed Cat Scan: Report Reviewed Problem List - Problems (1) Cellulitis Code(s): L03.90 - CELLULITIS, UNSPECIFIED Qualifiers: Site of cellulitis: extremity Site of cellulitis of extremity: upper extremity Laterality: left Qualified Code(s): L03.114 - Cellulitis of left upper limb (2) Leukocytosis Code(s): D72.829 - ELEVATED WHITE BLOOD CELL COUNT, UNSPECIFIED (3) Septic arthritis Code(s): M00.9 - PYOGENIC ARTHRITIS, UNSPECIFIED (4) MSSA (methicillin susceptible Staphylococcus aureus) infection Code(s): A49.01 - METHICILLIN SUSCEP STAPH INFECTION, UNSP SITE Assessment/Plan MSSA bacteremia/Sepsis Septic left wrist joint renal failure on HD, mild urine output nstemi Leukocytosis - remains on Nafcillin, Zosyn - latest blood cultures with no growth - clindamycin discontinued - wbc remains elevated, suggest monitor for now, repeat cbc tomorrow pt appears clinically stable at this time
--- NOTE | 2017-03-21 11:53 | PN ---
Progress Note, Physician Chief Complaint: Events noted On HD Awake and alert History of Present Illness: Patient was seen and examined. Chart was reviewed Denies chest pain, shortness of breath or palpitations - Current Medication List Current Medications: Active Medications Allopurinol (Zyloprim -) 100 mg PO DAILY [facility] Last Admin: 03/21/17 11:22 Dose: 100 mg Carvedilol (Coreg -) 3.125 mg PO BID [facility] Last Admin: 03/21/17 11:21 Dose: 3.125 mg Cholecalciferol (Vitamin D3 -) 2,000 unit PO DAILY [facility] Last Admin: 03/21/17 11:21 Dose: 2,000 unit Heparin Sodium (Porcine) (Heparin -) 5,000 unit SQ BID [facility] Last Admin: 03/21/17 11:24 Dose: 5,000 unit Hydrocortisone (Hytone 1% Cream -) 1 applic TP BID PRN PRN Reason: FOR ITCHING IV Flush (Picc Line Flush) 8 ml IVPUSH PRN PRN PRN Reason: Protocol Piperacillin Sod/Tazobactam (Sod 2.25 gm/ Dextrose) 50 mls @ 100 mls/hr IVPB Q6H-IV [facility] Last Admin: 03/21/17 11:23 Dose: 100 mls/hr Nafcillin Sodium 2 gm/ (Dextrose) 100 mls @ 100 mls/hr IVPB Q4H-IV [facility] PRN Reason: Protocol Last Admin: 03/21/17 05:12 Dose: 100 mls/hr Insulin Aspart (Novolog Vial Sliding Scale -) 1 vial SQ TIDAC [facility] PRN Reason: Protocol Last Admin: 03/21/17 06:29 Dose: 2 units Lactulose (Cephulac (Oral Use)) 30 gm PO DAILY [facility] Last Admin: 03/21/17 11:22 Dose: 30 gm Ondansetron HCl (Zofran Injection) 4 mg IVPB Q8H PRN PRN Reason: NAUSEA Oxycodone HCl (Roxicodone -) 10 mg PO Q4H PRN PRN Reason: PAIN Last Admin: 03/21/17 10:52 Dose: 10 mg Pantoprazole Sodium (Protonix -) 40 mg PO DAILY [facility] Last Admin: 03/21/17 11:21 Dose: 40 mg Polyethylene Glycol (Miralax (For Daily Use) -) 17 gm PO DAILY [facility] Last Admin: 03/21/17 11:24 Dose: 17 gm Sevelamer Carbonate (Renvela -) 800 mg PO TIDCM [facility] Last Admin: 03/21/17 11:24 Dose: 800 mg Torsemide (Demadex -) 40 mg PO DAILY [facility] Last Admin: 03/21/17 11:22 Dose: 40 mg Vitamin E (Vitamin E -) 400 unit PO DAILY [facility] Last Admin: 03/21/17 11:23 Dose: 400 unit - Objective Vital Signs: Vital Signs Temperature 98.4 F 03/21/17 07:55 Pulse Rate 70 03/21/17 10:42 Respiratory Rate 18 03/21/17 10:42 Blood Pressure 122/72 03/21/17 10:42 O2 Sat by Pulse Oximetry (%) 99 03/20/17 21:00 Neck: Yes: Supple Cardiovascular: Yes: Regular Rate and Rhythm, S1, S2 Respiratory: Yes: Diminished Gastrointestinal: Yes: Normal Bowel Sounds, Soft. No: Tenderness Edema: Yes Edema: LLE: Trace, RLE: Trace Additional Findings/Remarks: - Review of Systems Constitutional: no symptoms reported Respiratory: denies: Cough denies: Sputum Production Cardiovascular: denies: chest pain, SOB, palpitations Gastrointestinal: denies Nausea, Vomiting, Diarrhea, Constipation or Abdominal Pain Genitourinary: No symptoms reported Musculoskeletal: No symptoms reported Endocrine: No symptoms reported Labs: CBC, BMP 03/21/17 05:22 03/21/17 05:22 INR, PTT INR 1.69 (0.82-1.09) H 03/20/17 10:23 Assessment/Plan 1. Cardiopulmonary arrest with PEA (Pulseless Electrical Activity) post resuscitation and post respiratory failure 2. Abnormal EKG, unclear underlying atrial rhythm now resolved most likely related profound metabolic/lactic acidosis 3. CAD post NM/CABG angina pectoris with evidence of demand ischemic injury in context of acute pulmonary edema - resolved 4. Moderate LV systolic dysfunction with acute class III-IV NYHA classification LV failure 5. Acute renal failure on HD 6. Anemia, recent GI bleed related to peptic ulcer disease, post transfusion 7. History of HTN - episode of hypotension post pressor support - now stable 8. DM 9. Hypercholesterolemia 10. Cellulitis with recent MSSA sepsis syndrome with septic shock 11. Hyponatremia 12. Cholestatic LFTs PLAN: 1. Follow LFTs, electrolytes and renal function 2. Continue Heparin SQ, Plavix, but with caution and use PPI 3. HD per the renal service with ultrafiltration and continue Demadex 4. Continue Coreg with uptitration as tolerated. Restart Statin once LFT recovers 5. Transfusion PRN to maintain Hgb equal or > 8.0 6. Complete antibiotic course per ID Patient had seen Dr. Seth Castillo now plans to see Dr. Rodney Sy with [facility] upon discharge Jonnathan Nogueira MD
--- NOTE | 2017-03-21 17:14 | PN ---
Progress Note, Physician History of Present Illness: comfortable c/o pain and aches all over mostly back - Current Medication List Current Medications: Active Medications Allopurinol (Zyloprim -) 100 mg PO DAILY [facility] Last Admin: 03/21/17 11:22 Dose: 100 mg Carvedilol (Coreg -) 3.125 mg PO BID [facility] Last Admin: 03/21/17 11:21 Dose: 3.125 mg Cholecalciferol (Vitamin D3 -) 2,000 unit PO DAILY [facility] Last Admin: 03/21/17 11:21 Dose: 2,000 unit Heparin Sodium (Porcine) (Heparin -) 5,000 unit SQ BID [facility] Last Admin: 03/21/17 11:24 Dose: 5,000 unit Hydrocortisone (Hytone 1% Cream -) 1 applic TP BID PRN PRN Reason: FOR ITCHING IV Flush (Picc Line Flush) 8 ml IVPUSH PRN PRN PRN Reason: Protocol Piperacillin Sod/Tazobactam (Sod 2.25 gm/ Dextrose) 50 mls @ 100 mls/hr IVPB Q6H-IV [facility] Last Admin: 03/21/17 15:36 Dose: 100 mls/hr Nafcillin Sodium 2 gm/ (Dextrose) 100 mls @ 100 mls/hr IVPB Q4H-IV [facility] PRN Reason: Protocol Last Admin: 03/21/17 15:35 Dose: 100 mls/hr Insulin Aspart (Novolog Vial Sliding Scale -) 1 vial SQ TIDAC [facility] PRN Reason: Protocol Last Admin: 03/21/17 12:21 Dose: Not Given Lactulose (Cephulac (Oral Use)) 30 gm PO DAILY [facility] Last Admin: 03/21/17 11:22 Dose: 30 gm Ondansetron HCl (Zofran Injection) 4 mg IVPB Q8H PRN PRN Reason: NAUSEA Oxycodone HCl (Roxicodone -) 10 mg PO Q4H PRN PRN Reason: PAIN Last Admin: 03/21/17 15:33 Dose: 10 mg Pantoprazole Sodium (Protonix -) 40 mg PO DAILY [facility] Last Admin: 03/21/17 11:21 Dose: 40 mg Polyethylene Glycol (Miralax (For Daily Use) -) 17 gm PO DAILY [facility] Last Admin: 03/21/17 11:24 Dose: 17 gm Sevelamer Carbonate (Renvela -) 800 mg PO TIDCM [facility] Last Admin: 03/21/17 11:24 Dose: 800 mg Torsemide (Demadex -) 40 mg PO DAILY [facility] Last Admin: 03/21/17 11:22 Dose: 40 mg Vitamin E (Vitamin E -) 400 unit PO DAILY [facility] Last Admin: 03/21/17 11:23 Dose: 400 unit - Objective Vital Signs: Vital Signs Temperature 98.5 F 03/21/17 14:45 Pulse Rate 75 03/21/17 14:45 Respiratory Rate 18 03/21/17 14:45 Blood Pressure 120/58 03/21/17 14:45 O2 Sat by Pulse Oximetry (%) 98 03/21/17 10:00 Constitutional: Yes: No Distress HENT: Yes: Atraumatic Neck: Yes: Supple Cardiovascular: Yes: Regular Rate and Rhythm Respiratory: Yes: Rhonchi Gastrointestinal: Yes: Normal Bowel Sounds Extremities: Yes: Other (left hand mild swelling...cellulitis?) Edema: LUE: Trace, LLE: 1+, RLE: 1+ Neurological: Yes: Alert, Oriented Labs: CBC, BMP 03/21/17 05:22 03/21/17 05:22 INR, PTT INR 1.69 (0.82-1.09) H 03/20/17 10:23 Problem List - Problems (1) Acute renal failure (ARF) Assessment/Plan: cr trending down Code(s): N17.9 - ACUTE KIDNEY FAILURE, UNSPECIFIED Qualifiers: Acute renal failure type: unspecified Qualified Code(s): N17.9 - Acute kidney failure, unspecified (2) Cellulitis Assessment/Plan: on iv abx cxs noted wbc trending up Code(s): L03.90 - CELLULITIS, UNSPECIFIED Qualifiers: Site of cellulitis: extremity Site of cellulitis of extremity: upper extremity Laterality: left Qualified Code(s): L03.114 - Cellulitis of left upper limb (3) Hyperlipidemia Code(s): E78.5 - HYPERLIPIDEMIA, UNSPECIFIED Qualifiers: Hyperlipidemia type: pure hypercholesterolemia Qualified Code(s): E78.00 - Pure hypercholesterolemia, unspecified; E78.0 - Pure hypercholesterolemia (4) Hypertension Assessment/Plan: on meds stable Code(s): I10 - ESSENTIAL (PRIMARY) HYPERTENSION Qualifiers: Hypertension type: essential hypertension Qualified Code(s): I10 - Essential (primary) hypertension (5) Gout Assessment/Plan: on meds stable Code(s): M10.9 - GOUT, UNSPECIFIED Assessment/Plan covering dr walters/oscar rice
[2017-03-22] MEDS: NAFCILLIN - 2 GM in DEXTROSE 5%-WATER - 100 ML IVPB SCH ×6 (01:04→23:04)
[2017-03-22] MEDS: oxyCODONE HCL 5 MG TABLET PO PRN ×5 (01:10→23:04)
[2017-03-22] MEDS ORDERED: DEXTROSE 5%-WATER - 50 ML IVPB ONE ×4 (03:47→22:47)
[2017-03-22] MEDS ORDERED: PIPERACILLIN/TAZOBACTAM 2.25 GM VIAL IVPB ONE ×4 (03:47→22:47)
[2017-03-22] MEDS: PIPERACILLIN/TAZOB 2.25 GM 2.25 GM in DEXTROSE 5%-WATER - 50 ML IVPB SCH ×4 (03:54→23:00)
[2017-03-22] MEDS: INSULIN SLIDING SCALE (NOVOLOG) 1 VIAL SQ SCH ×3 (06:04→17:30)
[2017-03-22 07:03] LABS: MCH 29.1 pg (25.7-33.7); MCHC 34.5 g/dl (32.0-35.9); MEAN CELL VOLUME 84.5 fl (80-96); MEAN PLT VOLUME 8.5 fl (7.5-11.1); PLATELET COUNT 214 K/MM3 (134-434); RDW 21.9 % (11.9-15.9); WHITE BLOOD COUNT 16.4 K/mm3 (4.0-10.0)
[2017-03-22 07:40] LABS: ALBUMIN 1.4 g/dl (3.4-5.0); BILIRUBIN,DIRECT 5.2 mg/dL (0.0-0.2)
[2017-03-22 07:42] LABS: TOT PROT 5.2 g/dl (6.4-8.2)
--- NOTE | 2017-03-22 08:03 | PN ---
Progress Note (short form) - Note Progress Note: Renal Follow up for JOE Pt seen and examined in Tele awake and alert s/p UF yesterday feels well today no acute sob, chest pain Vital Signs Temperature 99.1 F 03/22/17 06:00 Pulse Rate 74 03/22/17 06:00 Respiratory Rate 20 03/22/17 06:00 Blood Pressure 122/59 03/22/17 06:00 O2 Sat by Pulse Oximetry (%) 98 03/21/17 22:00 Intake & Output 03/19/17 03/20/17 03/21/17 03/22/17 23:59 23:59 23:59 23:59 Intake Total 1224 1814 1690 200 Output Total 350 450 Balance 1224 1464 1240 200 Weight 245 lb 244 lb 14.4 oz 247 lb 4.8 oz Gen: NAD CVS: RRR Lungs: CTA Abd: soft NT/ND Ext: No LE edema, left wrist and hand swollen, eyrthema improved CBC, BMP 03/22/17 05:10 Current Medications Allopurinol (Zyloprim -) 100 mg PO DAILY [facility] Last Admin: 03/21/17 11:22 Dose: 100 mg Carvedilol (Coreg -) 3.125 mg PO BID [facility] Last Admin: 03/21/17 21:27 Dose: 3.125 mg Cholecalciferol (Vitamin D3 -) 2,000 unit PO DAILY [facility] Last Admin: 03/21/17 11:21 Dose: 2,000 unit Heparin Sodium (Porcine) (Heparin -) 5,000 unit SQ BID [facility] Last Admin: 03/21/17 21:33 Dose: 5,000 unit Hydrocortisone (Hytone 1% Cream -) 1 applic TP BID PRN PRN Reason: FOR ITCHING IV Flush (Picc Line Flush) 8 ml IVPUSH PRN PRN PRN Reason: Protocol Piperacillin Sod/Tazobactam (Sod 2.25 gm/ Dextrose) 50 mls @ 100 mls/hr IVPB Q6H-IV [facility] Last Admin: 03/22/17 03:54 Dose: 100 mls/hr Nafcillin Sodium 2 gm/ (Dextrose) 100 mls @ 100 mls/hr IVPB Q4H-IV [facility] PRN Reason: Protocol Last Admin: 03/22/17 05:18 Dose: 100 mls/hr Insulin Aspart (Novolog Vial Sliding Scale -) 1 vial SQ TIDAC [facility] PRN Reason: Protocol Last Admin: 03/22/17 06:04 Dose: Not Given Lactulose (Cephulac (Oral Use)) 30 gm PO DAILY [facility] Last Admin: 03/21/17 11:22 Dose: 30 gm Ondansetron HCl (Zofran Injection) 4 mg IVPB Q8H PRN PRN Reason: NAUSEA Oxycodone HCl (Roxicodone -) 10 mg PO Q4H PRN PRN Reason: PAIN Last Admin: 03/22/17 05:18 Dose: 10 mg Pantoprazole Sodium (Protonix -) 40 mg PO DAILY [facility] Last Admin: 03/21/17 11:21 Dose: 40 mg Polyethylene Glycol (Miralax (For Daily Use) -) 17 gm PO DAILY [facility] Last Admin: 03/21/17 11:24 Dose: 17 gm Sevelamer Carbonate (Renvela -) 800 mg PO TIDCM [facility] Last Admin: 03/21/17 17:33 Dose: 800 mg Torsemide (Demadex -) 40 mg PO DAILY [facility] Last Admin: 03/21/17 11:22 Dose: 40 mg Vitamin E (Vitamin E -) 400 unit PO DAILY [facility] Last Admin: 03/21/17 11:23 Dose: 400 unit A/P 71 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 #PEA Arrest/Resp Failure ECHO shows reduced LVEF Doppler of LE negative Vitals stable now clinically improved tele monitoring #Oliguric Renal Failure with volume overload s/p UF yesterday weights overall improved no HD or UF today trend urine output on torsemide fluid restriction, salt restriction for HD tomorrow with UF as tolerated #Anemia in setting of JOE/Acute Infection with recent EGD that showed ulcers s/p prbc transfusion trend cbc Aubrey Acharya DO Problem List - Problems (1) Cellulitis Code(s): L03.90 - CELLULITIS, UNSPECIFIED Qualifiers: Site of cellulitis: extremity Site of cellulitis of extremity: upper extremity Laterality: left Qualified Code(s): L03.114 - Cellulitis of left upper limb; L03.114 - Cellulitis of left upper limb (2) Acute renal failure (ARF) Code(s): N17.9 - ACUTE KIDNEY FAILURE, UNSPECIFIED Qualifiers: Acute renal failure type: unspecified Qualified Code(s): N17.9 - Acute kidney failure, unspecified; N17.9 - Acute kidney failure, unspecified; N17.9 - Acute kidney failure, unspecified (3) CAD (coronary artery disease) Code(s): I25.10 - ATHSCL HEART DISEASE OF [place] CORONARY ARTERY W/O ANG PCTRS Qualifiers: Coronary Disease-Associated Artery/Lesion type: [place] artery [place] vs. transplanted heart: [place] heart Associated angina: with unstable angina Qualified Code(s): I25.110 - Atherosclerotic heart disease of [place] coronary artery with unstable angina pectoris; I25.110 - Atherosclerotic heart disease of [place] coronary artery with unstable angina pectoris; I25.110 - Atherosclerotic heart disease of [place] coronary artery with unstable angina pectoris; I25.110 - Atherosclerotic heart disease of [place] coronary artery with unstable angina pectoris (4) Hypertension Code(s): I10 - ESSENTIAL (PRIMARY) HYPERTENSION Qualifiers: Hypertension type: essential hypertension Qualified Code(s): I10 - Essential (primary) hypertension; I10 - Essential (primary) hypertension; I10 - Essential (primary) hypertension (5) Gout Code(s): M10.9 - GOUT, UNSPECIFIED (6) Leukocytosis Code(s): D72.829 - ELEVATED WHITE BLOOD CELL COUNT, UNSPECIFIED
[2017-03-22] MEDS ORDERED: PT OWN MED DRAWER 7, Y5N ONE ×6 (08:22→23:02)
[2017-03-22] MEDS: SEVELAMER CARBONATE 800 MG TAB (FP) PO SCH ×3 (08:39→17:27)
[2017-03-22 08:47] LABS: PLATELET ESTIMATE ADEQUATE (NORMAL); TOTAL CELLS COUNTED 100
[2017-03-22 08:48] LABS: ANISOCYTOSIS 2+; HYPOCHROMIA FEW; METAMYELOCYTE 1 % (0-2); MICROCYTOSIS 1+; MYELOCYTE 3 % (0-2); POLYCHROMASIA 1+
--- NOTE | 2017-03-22 09:11 | PN ---
Progress Note, Physician Chief Complaint: Events noted Not in distress Awake and alert History of Present Illness: Patient was seen and examined. Chart was reviewed Denies chest pain, shortness of breath or palpitations - Current Medication List Current Medications: Active Medications Allopurinol (Zyloprim -) 100 mg PO DAILY [facility] Last Admin: 03/21/17 11:22 Dose: 100 mg Carvedilol (Coreg -) 3.125 mg PO BID [facility] Last Admin: 03/21/17 21:27 Dose: 3.125 mg Cholecalciferol (Vitamin D3 -) 2,000 unit PO DAILY [facility] Last Admin: 03/21/17 11:21 Dose: 2,000 unit Heparin Sodium (Porcine) (Heparin -) 5,000 unit SQ BID [facility] Last Admin: 03/21/17 21:33 Dose: 5,000 unit Hydrocortisone (Hytone 1% Cream -) 1 applic TP BID PRN PRN Reason: FOR ITCHING IV Flush (Picc Line Flush) 8 ml IVPUSH PRN PRN PRN Reason: Protocol Piperacillin Sod/Tazobactam (Sod 2.25 gm/ Dextrose) 50 mls @ 100 mls/hr IVPB Q6H-IV [facility] Last Admin: 03/22/17 08:39 Dose: 100 mls/hr Nafcillin Sodium 2 gm/ (Dextrose) 100 mls @ 100 mls/hr IVPB Q4H-IV [facility] PRN Reason: Protocol Last Admin: 03/22/17 05:18 Dose: 100 mls/hr Insulin Aspart (Novolog Vial Sliding Scale -) 1 vial SQ TIDAC [facility] PRN Reason: Protocol Last Admin: 03/22/17 06:04 Dose: Not Given Lactulose (Cephulac (Oral Use)) 30 gm PO DAILY [facility] Last Admin: 03/21/17 11:22 Dose: 30 gm Ondansetron HCl (Zofran Injection) 4 mg IVPB Q8H PRN PRN Reason: NAUSEA Oxycodone HCl (Roxicodone -) 10 mg PO Q4H PRN PRN Reason: PAIN Last Admin: 03/22/17 05:18 Dose: 10 mg Pantoprazole Sodium (Protonix -) 40 mg PO DAILY [facility] Last Admin: 03/21/17 11:21 Dose: 40 mg Polyethylene Glycol (Miralax (For Daily Use) -) 17 gm PO DAILY [facility] Last Admin: 03/21/17 11:24 Dose: 17 gm Sevelamer Carbonate (Renvela -) 800 mg PO TIDCM [facility] Last Admin: 03/22/17 08:39 Dose: 800 mg Torsemide (Demadex -) 40 mg PO DAILY [facility] Last Admin: 03/21/17 11:22 Dose: 40 mg Vitamin E (Vitamin E -) 400 unit PO DAILY [facility] Last Admin: 03/21/17 11:23 Dose: 400 unit - Objective Vital Signs: Vital Signs Temperature 99.1 F 03/22/17 06:00 Pulse Rate 74 03/22/17 06:00 Respiratory Rate 20 03/22/17 06:00 Blood Pressure 122/59 03/22/17 06:00 O2 Sat by Pulse Oximetry (%) 98 03/21/17 22:00 Neck: Yes: Supple Cardiovascular: Yes: Regular Rate and Rhythm, S1, S2 Respiratory: Yes: Diminished Gastrointestinal: Yes: Normal Bowel Sounds, Soft, Abdomen, Obese. No: Tenderness Edema: No Additional Findings/Remarks: - Review of Systems Constitutional: no symptoms reported Respiratory: denies: Cough denies: Sputum Production Cardiovascular: denies: chest pain, SOB, palpitations Gastrointestinal: denies Nausea, Vomiting, Diarrhea, Constipation or Abdominal Pain Genitourinary: No symptoms reported Musculoskeletal: No symptoms reported Endocrine: No symptoms reported Labs: CBC, BMP 03/22/17 05:10 Problem List - Problems (1) Abnormal liver enzymes Code(s): R74.8 - ABNORMAL LEVELS OF OTHER SERUM ENZYMES (2) Acute renal failure (ARF) Code(s): N17.9 - ACUTE KIDNEY FAILURE, UNSPECIFIED Qualifiers: Acute renal failure type: unspecified Qualified Code(s): N17.9 - Acute kidney failure, unspecified; N17.9 - Acute kidney failure, unspecified; N17.9 - Acute kidney failure, unspecified (3) Anemia Code(s): D64.9 - ANEMIA, UNSPECIFIED Qualifiers: Iron deficiency anemia type: chronic blood loss (4) CAD (coronary artery disease) Code(s): I25.10 - ATHSCL HEART DISEASE OF [place] CORONARY ARTERY W/O ANG PCTRS Qualifiers: Coronary Disease-Associated Artery/Lesion type: [place] artery [place] vs. transplanted heart: [place] heart Associated angina: with unstable angina Qualified Code(s): I25.110 - Atherosclerotic heart disease of [place] coronary artery with unstable angina pectoris; I25.110 - Atherosclerotic heart disease of [place] coronary artery with unstable angina pectoris; I25.110 - Atherosclerotic heart disease of [place] coronary artery with unstable angina pectoris; I25.110 - Atherosclerotic heart disease of [place] coronary artery with unstable angina pectoris (5) Cellulitis Code(s): L03.90 - CELLULITIS, UNSPECIFIED Qualifiers: Site of cellulitis: extremity Site of cellulitis of extremity: upper extremity Laterality: left Qualified Code(s): L03.114 - Cellulitis of left upper limb; L03.114 - Cellulitis of left upper limb (6) Hyperlipidemia Code(s): E78.5 - HYPERLIPIDEMIA, UNSPECIFIED Qualifiers: Hyperlipidemia type: pure hypercholesterolemia Qualified Code(s): E78.00 - Pure hypercholesterolemia, unspecified; E78.00 - Pure hypercholesterolemia, unspecified; E78.00 - Pure hypercholesterolemia, unspecified; E78.0 - Pure hypercholesterolemia (7) Hypertension Code(s): I10 - ESSENTIAL (PRIMARY) HYPERTENSION Qualifiers: Hypertension type: essential hypertension Qualified Code(s): I10 - Essential (primary) hypertension; I10 - Essential (primary) hypertension; I10 - Essential (primary) hypertension (8) MSSA (methicillin susceptible Staphylococcus aureus) infection Code(s): A49.01 - METHICILLIN SUSCEP STAPH INFECTION, UNSP SITE (9) Respiratory arrest before cardiac arrest Code(s): I46.9 - CARDIAC ARREST, CAUSE UNSPECIFIED R09.2 - RESPIRATORY ARREST (10) Hx of CABG Code(s): Z95.1 - PRESENCE OF AORTOCORONARY BYPASS GRAFT Assessment/Plan 1. Cardiopulmonary arrest with PEA (Pulseless Electrical Activity) post resuscitation and post respiratory failure 2. Abnormal EKG, unclear underlying atrial rhythm now resolved most likely related profound metabolic/lactic acidosis 3. CAD post AL/CABG angina pectoris with evidence of demand ischemic injury in context of acute pulmonary edema - resolved 4. Moderate LV systolic dysfunction with acute class III-IV NYHA classification LV failure 5. Acute renal failure on HD 6. Anemia, recent GI bleed related to peptic ulcer disease, post transfusion 7. History of HTN - episode of hypotension post pressor support - now stable 8. DM 9. Hypercholesterolemia 10. Cellulitis with recent MSSA sepsis syndrome with septic shock 11. Hyponatremia 12. Abnormal LFTs PLAN: 1. Follow LFTs, electrolytes and renal function 2. Continue Heparin SQ, Plavix, but with caution and use PPI 3. HD per the renal service with ultrafiltration and continue Demadex - Renal planning for HD tomorrow 4. Continue Coreg with uptitration as tolerated. Restart Statin once LFT recovers 5. Transfusion PRN to maintain Hgb equal or > 8.0 6. Complete antibiotic course per ID Patient had seen Dr. Seth Castillo now plans to see Dr. Rodney Sy ( Cardiology) with [facility] upon discharge Jonnathan Nogueira MD
--- NOTE | 2017-03-22 10:08 | PN ---
GI Progress Note Subjective: No acute events c/o chronic lower back pain, pain in legs L>R + brown BM's Abd US revealed cholelithiasis, fatty liver and patent portal venous system explained that he needed pain medication changed from Q4 to Q 3 - Objective Vital Signs: Vital Signs Temperature 99.1 F 03/22/17 06:00 Pulse Rate 74 03/22/17 06:00 Respiratory Rate 20 03/22/17 06:00 Blood Pressure 122/59 03/22/17 06:00 O2 Sat by Pulse Oximetry (%) 98 03/21/17 22:00 Constitutional: Calm Eyes: Yes: Sclera Icterus Cardiovascular: Yes: Regular Rate and Rhythm Respiratory: Yes: Rhonchi (left lung base) ...Auscultate: Yes: Normoactive Bowel Sounds ...Palpate: No: Tenderness (No RUQ TTP) Edema: Yes Edema: LLE: 2+ (erythema), RLE: 2+ (erythema) Labs: CBC, BMP 03/22/17 05:10 INR, PTT INR 1.69 (0.82-1.09) H 03/20/17 10:23 Hepatic Panel Total Bilirubin 9.0 mg/dL (0.2-1.0) H 03/22/17 05:10 Direct Bilirubin 5.2 mg/dL (0.0-0.2) H 03/22/17 05:10 AST 220 U/L (15-37) H D 03/22/17 05:10 ALT 415 U/L (12-78) H D 03/22/17 05:10 Alkaline Phosphatase 101 U/L (45-117) D 03/22/17 05:10 Albumin 1.4 g/dl (3.4-5.0) L 03/22/17 05:10 Problem List - Problems (1) Abnormal liver enzymes Assessment/Plan: Suspected Resolving Ischemic Hepatopathy: LFTs trending down including bilirubin. Continue to monitor Avoid hepatotoxic agents Can change latulose to PRN constipation Code(s): R74.8 - ABNORMAL LEVELS OF OTHER SERUM ENZYMES (2) GI bleed Assessment/Plan: No overt bleeding reported Continue PPI Will need f/u re: gastric ulcer as outpatient with Dr. Mayfield/Tolu Code(s): K92.2 - GASTROINTESTINAL HEMORRHAGE, UNSPECIFIED Qualifiers: GI bleed type/associated pathology: unspecified gastrointestinal hemorrhage type Qualified Code(s): K92.2 - Gastrointestinal hemorrhage, unspecified; K92.2 - Gastrointestinal hemorrhage, unspecified
[2017-03-22 10:10] LABS: ANION GAP 15 (8-16); CALCIUM 7.7 mg/dL (8.5-10.1); CO2 25 mmol/L (21-32); CREATININE 5.3 mg/dL (0.7-1.3); GLUCOSE,RANDOM 143 mg/dL (74-106); PHOSPHOROUS 5.2 mg/dL (2.5-4.9)
[2017-03-22] MEDS: CHOLECALCIFEROL (VITAMIN D3) 1,000 UNIT TABLET (FP) PO SCH (10:16)
[2017-03-22] MEDS: TORSEMIDE 20 MG TABLET (FP) PO SCH (10:16)
[2017-03-22] MEDS: CARVEDILOL 3.125 MG TABLET (FP) PO SCH ×2 (10:16→23:00)
[2017-03-22] MEDS: VITAMIN E 400 INTERNATIONAL-UNITS CAPSULE (FP) PO SCH (10:17)
[2017-03-22] MEDS: ALLOPURINOL 100 MG TABLET (FP) PO SCH (10:17)
[2017-03-22] MEDS: PANTOPRAZOLE 40 MG TABLET (FP) PO SCH (10:17)
[2017-03-22] MEDS: POLYETHYLENE GLYCOL 3350 119 GM BTL PO SCH (10:18)
[2017-03-22] MEDS: HEPARIN NA (PORCINE) 5,000 UNITS/ML 1ML VIAL SQ SCH ×2 (10:18→22:59)
[2017-03-22] MEDS: LACTULOSE 20 GM/30 ML UDC (FOR ORAL USE ONLY) PO SCH (11:29)
[2017-03-22] MEDS ORDERED: INSULIN (NOVOLOG) ASPART 100 UNITS/ML 10ML VIAL ONE (12:14)
--- NOTE | 2017-03-22 13:46 | PN ---
Progress Note, Physician History of Present Illness: comfortable - Current Medication List Current Medications: Active Medications Allopurinol (Zyloprim -) 100 mg PO DAILY [facility] Last Admin: 03/22/17 10:17 Dose: 100 mg Carvedilol (Coreg -) 3.125 mg PO BID [facility] Last Admin: 03/22/17 10:16 Dose: 3.125 mg Cholecalciferol (Vitamin D3 -) 2,000 unit PO DAILY [facility] Last Admin: 03/22/17 10:16 Dose: 2,000 unit Heparin Sodium (Porcine) (Heparin -) 5,000 unit SQ BID [facility] Last Admin: 03/22/17 10:18 Dose: 5,000 unit Hydrocortisone (Hytone 1% Cream -) 1 applic TP BID PRN PRN Reason: FOR ITCHING IV Flush (Picc Line Flush) 8 ml IVPUSH PRN PRN PRN Reason: Protocol Piperacillin Sod/Tazobactam (Sod 2.25 gm/ Dextrose) 50 mls @ 100 mls/hr IVPB Q6H-IV [facility] Last Admin: 03/22/17 08:39 Dose: 100 mls/hr Nafcillin Sodium 2 gm/ (Dextrose) 100 mls @ 100 mls/hr IVPB Q4H-IV [facility] PRN Reason: Protocol Last Admin: 03/22/17 10:17 Dose: 100 mls/hr Insulin Aspart (Novolog Vial Sliding Scale -) 1 vial SQ TIDAC [facility] PRN Reason: Protocol Last Admin: 03/22/17 12:15 Dose: 2 units Lactulose (Cephulac (Oral Use)) 20 gm PO BID [facility] Ondansetron HCl (Zofran Injection) 4 mg IVPB Q8H PRN PRN Reason: NAUSEA Oxycodone HCl (Roxicodone -) 10 mg PO Q4H PRN PRN Reason: PAIN Last Admin: 03/22/17 10:13 Dose: 10 mg Pantoprazole Sodium (Protonix -) 40 mg PO DAILY [facility] Last Admin: 03/22/17 10:17 Dose: 40 mg Polyethylene Glycol (Miralax (For Daily Use) -) 17 gm PO DAILY [facility] Last Admin: 03/22/17 10:18 Dose: 17 gm Sevelamer Carbonate (Renvela -) 800 mg PO TIDCM [facility] Last Admin: 10/01/17 12:12 Dose: 800 mg Torsemide (Demadex -) 40 mg PO DAILY [facility] Last Admin: 03/22/17 10:16 Dose: 40 mg Vitamin E (Vitamin E -) 400 unit PO DAILY [facility] Last Admin: 03/22/17 10:17 Dose: 400 unit - Objective Vital Signs: Vital Signs Temperature 98.1 F 03/22/17 10:00 Pulse Rate 78 03/22/17 10:00 Respiratory Rate 20 03/22/17 10:00 Blood Pressure 123/63 03/22/17 10:00 O2 Sat by Pulse Oximetry (%) 95 03/22/17 10:00 Constitutional: Yes: No Distress HENT: Yes: Atraumatic Neck: Yes: Supple Cardiovascular: Yes: Regular Rate and Rhythm Respiratory: Yes: CTA Bilaterally Gastrointestinal: Yes: Normal Bowel Sounds Extremities: Yes: Erythema Edema: RUE: 1+, LLE: 1+ Neurological: Yes: Alert, Oriented Labs: CBC, BMP 03/22/17 05:10 03/22/17 05:10 INR, PTT INR 1.69 (0.82-1.09) H 03/20/17 10:23 Problem List - Problems (1) Acute renal failure (ARF) Assessment/Plan: cr trending down Code(s): N17.9 - ACUTE KIDNEY FAILURE, UNSPECIFIED Qualifiers: Acute renal failure type: unspecified Qualified Code(s): N17.9 - Acute kidney failure, unspecified; N17.9 - Acute kidney failure, unspecified; N17.9 - Acute kidney failure, unspecified (2) Cellulitis Assessment/Plan: on iv abx cxs noted wbc trending up Code(s): L03.90 - CELLULITIS, UNSPECIFIED Qualifiers: Site of cellulitis: extremity Site of cellulitis of extremity: upper extremity Laterality: left Qualified Code(s): L03.114 - Cellulitis of left upper limb; L03.114 - Cellulitis of left upper limb (3) Hyperlipidemia Code(s): E78.5 - HYPERLIPIDEMIA, UNSPECIFIED Qualifiers: Hyperlipidemia type: pure hypercholesterolemia Qualified Code(s): E78.00 - Pure hypercholesterolemia, unspecified; E78.00 - Pure hypercholesterolemia, unspecified; E78.00 - Pure hypercholesterolemia, unspecified; E78.0 - Pure hypercholesterolemia (4) Hypertension Assessment/Plan: on meds stable Code(s): I10 - ESSENTIAL (PRIMARY) HYPERTENSION Qualifiers: Hypertension type: essential hypertension Qualified Code(s): I10 - Essential (primary) hypertension; I10 - Essential (primary) hypertension; I10 - Essential (primary) hypertension (5) Gout Assessment/Plan: on meds stable Code(s): M10.9 - GOUT, UNSPECIFIED (6) Abnormal liver enzymes Assessment/Plan: ischemic hepatopathy enzymes trending down Code(s): R74.8 - ABNORMAL LEVELS OF OTHER SERUM ENZYMES Assessment/Plan covering dr walters/oscar rice
--- NOTE | 2017-03-22 15:50 | PN ---
Progress Note, Physician History of Present Illness: Pt is alert and fully responsive. Denies any specific complaints. Has been having mildly elevated temps and upward trend in wbc. Had 1 light brown soft BM yesterday and slight improvement in urine output. Denies cough/shortness of breath, abd pain/n/v, focal deficit. Receiving PT. - Current Medication List Current Medications: Active Medications Allopurinol (Zyloprim -) 100 mg PO DAILY [facility] Last Admin: 03/22/17 10:17 Dose: 100 mg Carvedilol (Coreg -) 3.125 mg PO BID [facility] Last Admin: 03/22/17 10:16 Dose: 3.125 mg Cholecalciferol (Vitamin D3 -) 2,000 unit PO DAILY [facility] Last Admin: 03/22/17 10:16 Dose: 2,000 unit Heparin Sodium (Porcine) (Heparin -) 5,000 unit SQ BID [facility] Last Admin: 03/22/17 10:18 Dose: 5,000 unit Hydrocortisone (Hytone 1% Cream -) 1 applic TP BID PRN PRN Reason: FOR ITCHING IV Flush (Picc Line Flush) 8 ml IVPUSH PRN PRN PRN Reason: Protocol Piperacillin Sod/Tazobactam (Sod 2.25 gm/ Dextrose) 50 mls @ 100 mls/hr IVPB Q6H-IV [facility] Last Admin: 03/22/17 15:26 Dose: 100 mls/hr Nafcillin Sodium 2 gm/ (Dextrose) 100 mls @ 100 mls/hr IVPB Q4H-IV [facility] PRN Reason: Protocol Last Admin: 03/22/17 15:26 Dose: 100 mls/hr Insulin Aspart (Novolog Vial Sliding Scale -) 1 vial SQ TIDAC [facility] PRN Reason: Protocol Last Admin: 03/22/17 12:15 Dose: 2 units Lactulose (Cephulac (Oral Use)) 20 gm PO BID [facility] Ondansetron HCl (Zofran Injection) 4 mg IVPB Q8H PRN PRN Reason: NAUSEA Oxycodone HCl (Roxicodone -) 10 mg PO Q3H PRN PRN Reason: PAIN Last Admin: 03/22/17 15:28 Dose: 10 mg Pantoprazole Sodium (Protonix -) 40 mg PO DAILY [facility] Last Admin: 03/22/17 10:17 Dose: 40 mg Polyethylene Glycol (Miralax (For Daily Use) -) 17 gm PO DAILY [facility] Last Admin: 03/22/17 10:18 Dose: 17 gm Sevelamer Carbonate (Renvela -) 800 mg PO TIDCM [facility] Last Admin: 03/22/17 12:12 Dose: 800 mg Torsemide (Demadex -) 40 mg PO DAILY [facility] Last Admin: 03/22/17 10:16 Dose: 40 mg Vitamin E (Vitamin E -) 400 unit PO DAILY [facility] Last Admin: 03/22/17 10:17 Dose: 400 unit - Objective Vital Signs: Vital Signs Temperature 97.9 F 03/22/17 14:20 Pulse Rate 75 03/22/17 14:20 Respiratory Rate 18 03/22/17 14:20 Blood Pressure 109/57 03/22/17 14:20 O2 Sat by Pulse Oximetry (%) 95 03/22/17 10:00 Constitutional: Yes: No Distress, Calm HENT: Yes: Normocephalic Cardiovascular: Yes: Regular Rate and Rhythm Respiratory: Yes: Rales (basilar) Gastrointestinal: Yes: Normal Bowel Sounds, Soft Extremities: Yes: Erythema (b/l LE), Other (LE edema, no warmth Lt wrist edema/ erythema improving, improved ROM) Edema: Yes (thighs,scrotal,up to flan) Edema: LLE: 2+, RLE: 2+ Neurological: Yes: Alert, Oriented Psychiatric: Yes: WNL Labs: CBC, BMP 03/22/17 05:10 03/22/17 05:10 INR, PTT INR 1.69 (0.82-1.09) H 03/20/17 10:23 Problem List - Problems (1) Cellulitis Code(s): L03.90 - CELLULITIS, UNSPECIFIED Qualifiers: Site of cellulitis: extremity Site of cellulitis of extremity: upper extremity Laterality: left Qualified Code(s): L03.114 - Cellulitis of left upper limb; L03.114 - Cellulitis of left upper limb (2) Leukocytosis Code(s): D72.829 - ELEVATED WHITE BLOOD CELL COUNT, UNSPECIFIED (3) Septic arthritis Code(s): M00.9 - PYOGENIC ARTHRITIS, UNSPECIFIED (4) MSSA (methicillin susceptible Staphylococcus aureus) infection Code(s): A49.01 - METHICILLIN SUSCEP STAPH INFECTION, UNSP SITE Assessment/Plan MSSA bacteremia/Sepsis Septic left wrist joint -appears to be improving renal failure on HD, mild urine output GI bleed nstemi Leukocytosis, eosinophilia unclear source of leukocytosis, mild temp elevations, question of possible allergic source will continue Nafcillin/Zosyn, restart clindamycin for now repeat blood cultures repeat cbc send stool for C. diff testing if has more unformed BMs patient appears relatively stable at this time
[2017-03-22] MEDS: CLINDAMYCIN 300 MG PREMIX IVPB 50 ML IVPB SCH ×2 (18:27→22:59)
[2017-03-22] MEDS: HYDROCORTISONE 1% TOPICAL CREAM 30 GM TUBE TP PRN (23:23)
[2017-03-23] MEDS ORDERED: PT OWN MED DRAWER 7, Y5N ONE ×6 (02:00→21:46)
[2017-03-23] MEDS ORDERED: DEXTROSE 5%-WATER - 50 ML IVPB ONE ×2 (02:01→10:49)
[2017-03-23] MEDS ORDERED: PIPERACILLIN/TAZOBACTAM 2.25 GM VIAL IVPB ONE ×2 (02:01→10:49)
[2017-03-23] MEDS: NAFCILLIN - 2 GM in DEXTROSE 5%-WATER - 100 ML IVPB SCH ×6 (02:07→21:53)
[2017-03-23] MEDS: CLINDAMYCIN 300 MG PREMIX IVPB 50 ML IVPB SCH ×2 (02:07→11:46)
[2017-03-23] MEDS: PIPERACILLIN/TAZOB 2.25 GM 2.25 GM in DEXTROSE 5%-WATER - 50 ML IVPB SCH ×2 (03:01→11:46)
[2017-03-23] MEDS: oxyCODONE HCL 5 MG TABLET PO PRN ×5 (05:15→21:48)
[2017-03-23 05:37] LABS: BASOPHIL 0.3 % (0-2.0); EOSINOPHIL 9.1 % (0-4.5); MCH 29.5 pg (25.7-33.7); MCHC 34.6 g/dl (32.0-35.9); MEAN CELL VOLUME 85.1 fl (80-96); MEAN PLT VOLUME 8.4 fl (7.5-11.1); NEUTROPHILS 73.2 % (42.8-82.8); PLATELET COUNT 221 K/MM3 (134-434); RDW 22.1 % (11.9-15.9); WHITE BLOOD COUNT 15.3 K/mm3 (4.0-10.0)
[2017-03-23 06:04] LABS: ALBUMIN 1.2 g/dl (3.4-5.0); ALK PHOS 91 U/L (45-117); ANION GAP 14 (8-16); BILIRUBIN,TOTAL 8.5 mg/dL (0.2-1.0); CALCIUM 7.8 mg/dL (8.5-10.1); CO2 27 mmol/L (21-32); GLUCOSE,RANDOM 162 mg/dL (74-106); SGPT/ALT 307 U/L (12-78)
[2017-03-23 06:07] LABS: SGOT/AST 154 U/L (15-37)
[2017-03-23] MEDS: SEVELAMER CARBONATE 800 MG TAB (FP) PO SCH ×4 (06:51→17:16)
[2017-03-23] MEDS: INSULIN SLIDING SCALE (NOVOLOG) 1 VIAL SQ SCH ×3 (06:52→16:44)
[2017-03-23 08:52] LABS: PHOSPHOROUS 5.9 mg/dL (2.5-4.9)
--- NOTE | 2017-03-23 09:53 | PN ---
Progress Note (short form) - Note Progress Note: Patient has rash on trunk thought to due to IV Antibiotics: Probably Nafcillin. Await F/U ID MD. Urinating better but still with no improvement in renal lab Bilirubin over 8 yet enzymes lower ? hemolysis Hand moving better but still has fluctuant area on hand. On Exam: Vital Signs Temp 98.5 F 03/23/17 07:25 Pulse 88 03/23/17 09:30 Resp 18 03/23/17 09:30 BP 138/76 03/23/17 09:30 Pulse Ox 97 03/22/17 21:00 Intake & Output 03/22/17 03/22/17 03/23/17 11:59 23:59 11:59 Intake Total 570 1340 328 Output Total 410 300 Balance 160 1040 328 Weight 262 lb 2 oz Intake: IV 20 28 Left TLC 03/15/2017 20 28 IVPB 200 800 300 Oral 370 520 Output: Urine 410 300 Void 410 300 Other: Voiding Method Bedside Commode Urinal Bowel Movement No Weight Measurement Method Standing Scale Lethargic Chest: rales at bases Cor: Reg 4+ body edema below waist Macular papular rash chest wall ? collection left dorsum of hand. Abnormal Lab Results 03/22/17 03/23/17 03/23/17 05:10 05:25 05:25 WBC 15.3 H RBC 3.01 L Hgb 8.9 L Hct 25.6 L RDW 22.1 H Eosinophils % 9.1 H Sodium 130 L 127 L Potassium 3.3 L Chloride 90 L 86 L BUN 46 H D 53 H Creatinine 5.3 H D 6.0 H Random Glucose 143 H 162 H Calcium 7.7 L 7.8 L Phosphorus 5.2 H D 5.9 H Total Bilirubin 8.5 H AST 154 H D ALT 307 H D Total Protein 5.0 L Albumin 1.2 L IMP: MSSA sepsis causing Acute renal failure Respiratory Arrest Persistent WBC and ? collection dorsum left hand Acute renal Failure Lethergy due to elevated Bilirubin Plan: F/U ID, Ortho and GI MD;s Dialysis F/U Lab Probablr F/U CT scans Problem List - Problems (1) Cellulitis Code(s): L03.90 - CELLULITIS, UNSPECIFIED Qualifiers: Site of cellulitis: extremity Site of cellulitis of extremity: upper extremity Laterality: left Qualified Code(s): L03.114 - Cellulitis of left upper limb; L03.114 - Cellulitis of left upper limb (2) GI bleed Code(s): K92.2 - GASTROINTESTINAL HEMORRHAGE, UNSPECIFIED Qualifiers: GI bleed type/associated pathology: unspecified gastrointestinal hemorrhage type Qualified Code(s): K92.2 - Gastrointestinal hemorrhage, unspecified; K92.2 - Gastrointestinal hemorrhage, unspecified (3) Acute renal failure (ARF) Code(s): N17.9 - ACUTE KIDNEY FAILURE, UNSPECIFIED Qualifiers: Acute renal failure type: unspecified Qualified Code(s): N17.9 - Acute kidney failure, unspecified; N17.9 - Acute kidney failure, unspecified; N17.9 - Acute kidney failure, unspecified (4) CAD (coronary artery disease) Code(s): I25.10 - ATHSCL HEART DISEASE OF [place] CORONARY ARTERY W/O ANG PCTRS Qualifiers: Coronary Disease-Associated Artery/Lesion type: [place] artery [place] vs. transplanted heart: [place] heart Associated angina: with unstable angina Qualified Code(s): I25.110 - Atherosclerotic heart disease of [place] coronary artery with unstable angina pectoris; I25.110 - Atherosclerotic heart disease of [place] coronary artery with unstable angina pectoris; I25.110 - Atherosclerotic heart disease of [place] coronary artery with unstable angina pectoris; I25.110 - Atherosclerotic heart disease of [place] coronary artery with unstable angina pectoris (5) Gout Code(s): M10.9 - GOUT, UNSPECIFIED (6) Hypertension Code(s): I10 - ESSENTIAL (PRIMARY) HYPERTENSION Qualifiers: Hypertension type: essential hypertension Qualified Code(s): I10 - Essential (primary) hypertension; I10 - Essential (primary) hypertension; I10 - Essential (primary) hypertension (7) Anemia Code(s): D64.9 - ANEMIA, UNSPECIFIED Qualifiers: Iron deficiency anemia type: chronic blood loss (8) Leukocytosis Code(s): D72.829 - ELEVATED WHITE BLOOD CELL COUNT, UNSPECIFIED (9) Respiratory arrest before cardiac arrest Code(s): I46.9 - CARDIAC ARREST, CAUSE UNSPECIFIED R09.2 - RESPIRATORY ARREST (10) Respiratory arrest Code(s): R09.2 - RESPIRATORY ARREST
--- NOTE | 2017-03-23 10:05 | PN ---
Progress Note, Physician History of Present Illness: Remains comfortable on NC, hemodynamically stable. Undergoing HD, urinating more , sensorium improved. - Current Medication List Current Medications: Active Medications Allopurinol (Zyloprim -) 100 mg PO DAILY [facility] Last Admin: 03/22/17 10:17 Dose: 100 mg Carvedilol (Coreg -) 3.125 mg PO BID [facility] Last Admin: 03/22/17 23:00 Dose: 3.125 mg Cholecalciferol (Vitamin D3 -) 2,000 unit PO DAILY [facility] Last Admin: 03/22/17 10:16 Dose: 2,000 unit Heparin Sodium (Porcine) (Heparin -) 5,000 unit SQ BID [facility] Last Admin: 03/22/17 22:59 Dose: 5,000 unit Hydrocortisone (Hytone 1% Cream -) 1 applic TP BID PRN PRN Reason: FOR ITCHING Last Admin: 03/22/17 23:23 Dose: 1 applic IV Flush (Picc Line Flush) 8 ml IVPUSH PRN PRN PRN Reason: Protocol Piperacillin Sod/Tazobactam (Sod 2.25 gm/ Dextrose) 50 mls @ 100 mls/hr IVPB Q6H-IV [facility] Last Admin: 03/23/17 03:01 Dose: 100 mls/hr Nafcillin Sodium 2 gm/ (Dextrose) 100 mls @ 100 mls/hr IVPB Q4H-IV [facility] PRN Reason: Protocol Last Admin: 03/23/17 05:15 Dose: 100 mls/hr Clindamycin Phosphate (Cleocin 300 Mg Premix Ivpb) 50 mls @ 100 mls/hr IVPB Q6H -IV [facility] Last Admin: 03/23/17 02:07 Dose: 100 mls/hr Insulin Aspart (Novolog Vial Sliding Scale -) 1 vial SQ TIDAC [facility] PRN Reason: Protocol Last Admin: 03/23/17 06:52 Dose: 2 units Lactulose (Cephulac (Oral Use)) 20 gm PO BID [facility] Ondansetron HCl (Zofran Injection) 4 mg IVPB Q8H PRN PRN Reason: NAUSEA Oxycodone HCl (Roxicodone -) 10 mg PO Q3H PRN PRN Reason: PAIN Last Admin: 03/23/17 05:15 Dose: 10 mg Pantoprazole Sodium (Protonix -) 40 mg PO DAILY [facility] Last Admin: 03/22/17 10:17 Dose: 40 mg Polyethylene Glycol (Miralax (For Daily Use) -) 17 gm PO DAILY [facility] Last Admin: 03/22/17 10:18 Dose: 17 gm Sevelamer Carbonate (Renvela -) 800 mg PO TIDCM [facility] Last Admin: 03/23/17 08:43 Dose: Not Given Torsemide (Demadex -) 40 mg PO DAILY [facility] Last Admin: 03/22/17 10:16 Dose: 40 mg Vitamin E (Vitamin E -) 400 unit PO DAILY [facility] Last Admin: 03/22/17 10:17 Dose: 400 unit - Objective Vital Signs: Vital Signs Temperature 98.5 F 03/23/17 07:25 Pulse Rate 88 03/23/17 09:30 Respiratory Rate 18 03/23/17 09:30 Blood Pressure 138/76 03/23/17 09:30 O2 Sat by Pulse Oximetry (%) 97 03/22/17 21:00 Constitutional: Yes: No Distress, Calm Neck: Yes: Supple Cardiovascular: Yes: Regular Rate and Rhythm Respiratory: Yes: Regular, Diminished, On Nasal O2 Gastrointestinal: Yes: Normal Bowel Sounds, Soft, Abdomen, Obese Edema: Yes Edema: LLE: 2+, RLE: 2+ Labs: CBC, BMP 03/23/17 05:25 03/23/17 05:25 INR, PTT INR 1.69 (0.82-1.09) H 03/20/17 10:23 Problem List - Problems (1) Acute renal failure (ARF) Code(s): N17.9 - ACUTE KIDNEY FAILURE, UNSPECIFIED Qualifiers: Acute renal failure type: unspecified Qualified Code(s): N17.9 - Acute kidney failure, unspecified; N17.9 - Acute kidney failure, unspecified; N17.9 - Acute kidney failure, unspecified (2) CAD (coronary artery disease) Code(s): I25.10 - ATHSCL HEART DISEASE OF [place] CORONARY ARTERY W/O ANG PCTRS Qualifiers: Coronary Disease-Associated Artery/Lesion type: [place] artery [place] vs. transplanted heart: [place] heart Associated angina: with unstable angina Qualified Code(s): I25.110 - Atherosclerotic heart disease of [place] coronary artery with unstable angina pectoris; I25.110 - Atherosclerotic heart disease of [place] coronary artery with unstable angina pectoris; I25.110 - Atherosclerotic heart disease of [place] coronary artery with unstable angina pectoris; I25.110 - Atherosclerotic heart disease of [place] coronary artery with unstable angina pectoris (3) Cellulitis Code(s): L03.90 - CELLULITIS, UNSPECIFIED Qualifiers: Site of cellulitis: extremity Site of cellulitis of extremity: upper extremity Laterality: left Qualified Code(s): L03.114 - Cellulitis of left upper limb; L03.114 - Cellulitis of left upper limb (4) GI bleed Code(s): K92.2 - GASTROINTESTINAL HEMORRHAGE, UNSPECIFIED Qualifiers: GI bleed type/associated pathology: unspecified gastrointestinal hemorrhage type Qualified Code(s): K92.2 - Gastrointestinal hemorrhage, unspecified; K92.2 - Gastrointestinal hemorrhage, unspecified (5) Hypertension Code(s): I10 - ESSENTIAL (PRIMARY) HYPERTENSION Qualifiers: Hypertension type: essential hypertension Qualified Code(s): I10 - Essential (primary) hypertension; I10 - Essential (primary) hypertension; I10 - Essential (primary) hypertension (6) MSSA (methicillin susceptible Staphylococcus aureus) infection Code(s): A49.01 - METHICILLIN SUSCEP STAPH INFECTION, UNSP SITE (7) Respiratory arrest before cardiac arrest Code(s): I46.9 - CARDIAC ARREST, CAUSE UNSPECIFIED R09.2 - RESPIRATORY ARREST (8) Hyperlipidemia Code(s): E78.5 - HYPERLIPIDEMIA, UNSPECIFIED Qualifiers: Hyperlipidemia type: pure hypercholesterolemia Qualified Code(s): E78.00 - Pure hypercholesterolemia, unspecified; E78.00 - Pure hypercholesterolemia, unspecified; E78.00 - Pure hypercholesterolemia, unspecified; E78.0 - Pure hypercholesterolemia (9) Cholestasis Code(s): K83.1 - OBSTRUCTION OF BILE DUCT (10) Anemia Code(s): D64.9 - ANEMIA, UNSPECIFIED Qualifiers: Iron deficiency anemia type: chronic blood loss Assessment/Plan 03/17/2017 CHEN 1. LV wall motion abnormality with moderate reduction in LV EF, estimated between 35-40% 2. MAC 3. Normal Mitral valve leaflets with no vegitation, trace to mild MR 4. AV sclerosis with no vegitation, no AI 5. Normal Tricuspid leaflets with no vegitation, mild TR 6. Faintly visualized Pulmonic valve with no vegitation 7. Intact atrial septum with no intra-cardiac shunting by color flow 8. Mild to degree of layered athero-sclerosis in the descending thoracic aorta and the distal thoracic arch 1. Cardiopulmonary arrest with PEA (pulse-less Electrical Activity) post resuscitation, respiratory failure/extubated 2. Abnormal EKG, right axis deviation with RSCD (unclear underlying atrial rhythm), resolved most likely related profound metabolic/lactic acidosis since resolved 3. CAD post RI/CABG angina pectoris with evidence of demand ischemic injury in context of acute pulmonary edema 4. Moderate LV systolic dysfunction with acute class III-IV NYHA classification LV failure, acute pulmonary edema, resolving 5. Acute renal failure on HD with hypokalemia 6. Anemia, recent GI bleed related to peptic ulcer disease, post transfusion 7. HTN, hypotension resolved off pressors 8. DM 9. Hypercholesterolemia 10. Cellulitis with recent MSSA sepsis syndrome with septic shock 11. Hyponatremia 12. Cholestatic LFTs, suspect ischemia PLAN: 1. Trend LFTs already peaked on downtrend 2. Continue Heparin SQ, start Plavix 75 qd without ASA given recent GI bleed once hemostasis assured, maintain on Protonix 40 qd 3. HD per the renal service with ultrafiltration and Demadex 40 qd 4. Continue Coreg 3.125 bid with uptitration as tolerated, d/c Lipitor 40 qhs awaiting LFTs stabilization 5. Transfusion prn to maintain Hg equal or > 8.0 6. Complete abx course per ID
--- NOTE | 2017-03-23 11:40 | PN ---
Progress Note, Physician History of Present Illness: patient stable being dialysed patient has developed a rash on the body - Current Medication List Current Medications: Active Medications Allopurinol (Zyloprim -) 100 mg PO DAILY [facility] Last Admin: 03/22/17 10:17 Dose: 100 mg Carvedilol (Coreg -) 3.125 mg PO BID [facility] Last Admin: 03/22/17 23:00 Dose: 3.125 mg Cholecalciferol (Vitamin D3 -) 2,000 unit PO DAILY [facility] Last Admin: 03/22/17 10:16 Dose: 2,000 unit Heparin Sodium (Porcine) (Heparin -) 5,000 unit SQ BID [facility] Last Admin: 03/22/17 22:59 Dose: 5,000 unit Hydrocortisone (Hytone 1% Cream -) 1 applic TP BID PRN PRN Reason: FOR ITCHING Last Admin: 03/22/17 23:23 Dose: 1 applic IV Flush (Picc Line Flush) 8 ml IVPUSH PRN PRN PRN Reason: Protocol Nafcillin Sodium 2 gm/ (Dextrose) 100 mls @ 100 mls/hr IVPB Q4H-IV [facility] PRN Reason: Protocol Last Admin: 03/23/17 10:29 Dose: Not Given Insulin Aspart (Novolog Vial Sliding Scale -) 1 vial SQ TIDAC [facility] PRN Reason: Protocol Last Admin: 03/23/17 06:52 Dose: 2 units Lactulose (Cephulac (Oral Use)) 20 gm PO BID [facility] Ondansetron HCl (Zofran Injection) 4 mg IVPB Q8H PRN PRN Reason: NAUSEA Oxycodone HCl (Roxicodone -) 10 mg PO Q3H PRN PRN Reason: PAIN Last Admin: 03/23/17 05:15 Dose: 10 mg Pantoprazole Sodium (Protonix -) 40 mg PO DAILY [facility] Last Admin: 03/22/17 10:17 Dose: 40 mg Polyethylene Glycol (Miralax (For Daily Use) -) 17 gm PO DAILY [facility] Last Admin: 03/22/17 10:18 Dose: 17 gm Sevelamer Carbonate (Renvela -) 800 mg PO TIDCM [facility] Last Admin: 03/23/17 08:43 Dose: Not Given Torsemide (Demadex -) 40 mg PO DAILY [facility] Last Admin: 03/22/17 10:16 Dose: 40 mg Vitamin E (Vitamin E -) 400 unit PO DAILY [facility] Last Admin: 03/22/17 10:17 Dose: 400 unit - Objective Vital Signs: Vital Signs Temperature 98.5 F 03/23/17 07:25 Pulse Rate 80 03/23/17 11:00 Respiratory Rate 18 03/23/17 11:00 Blood Pressure 130/70 03/23/17 11:00 O2 Sat by Pulse Oximetry (%) 95 03/23/17 10:15 Constitutional: Yes: No Distress, Calm Cardiovascular: Yes: Regular Rate and Rhythm Respiratory: Yes: Regular, CTA Bilaterally Gastrointestinal: Yes: Normal Bowel Sounds, Soft Musculoskeletal: Yes: WNL Extremities: Yes: Other Edema: LLE: 2+, RLE: 2+ Integumentary: Yes: Rash Neurological: Yes: Alert, Oriented Psychiatric: Yes: Alert, Oriented Labs: CBC, BMP 03/23/17 05:25 03/23/17 05:25 INR, PTT INR 1.69 (0.82-1.09) H 03/20/17 10:23 Assessment/Plan sepsis septic left wrist joint gm positive bacteremia fever tenderness leukocytosis nstemi increased bilrubin in view of patients rash i am going to stop zosyn and clinda will continue nafcillin for now will stop nafcillin after wed plan will order a stat ultrasound of gall bladder to see for biliary sludge/ acalculous choley continue nafcillin very hard time getting a peripheral vein in view of increased wbc please get the line changed--central dialysis catheter site is clean and good i think instead of removing central line because of his condition we will get it changed
[2017-03-23] MEDS: CHOLECALCIFEROL (VITAMIN D3) 1,000 UNIT TABLET (FP) PO SCH (12:10)
[2017-03-23] MEDS: TORSEMIDE 20 MG TABLET (FP) PO SCH (12:11)
[2017-03-23] MEDS: PANTOPRAZOLE 40 MG TABLET (FP) PO SCH (12:11)
[2017-03-23] MEDS: CARVEDILOL 3.125 MG TABLET (FP) PO SCH ×2 (12:11→21:49)
[2017-03-23] MEDS: HEPARIN NA (PORCINE) 5,000 UNITS/ML 1ML VIAL SQ SCH ×2 (12:12→21:50)
[2017-03-23] MEDS: ALLOPURINOL 100 MG TABLET (FP) PO SCH (12:12)
[2017-03-23] MEDS: VITAMIN E 400 INTERNATIONAL-UNITS CAPSULE (FP) PO SCH (12:17)
[2017-03-23] MEDS: LACTULOSE 20 GM/30 ML UDC (FOR ORAL USE ONLY) PO SCH ×2 (12:19→21:53)
--- NOTE | 2017-03-23 12:23 | PN ---
Progress Note (short form) - Note Progress Note: Renal Follow up for JOE Pt seen and examined in Tele on dialysis BP stable, goal UF is 3.5L catheter with good flow pt without complaints Vital Signs Temperature 98.5 F 03/23/17 07:25 Pulse Rate 80 03/23/17 11:35 Respiratory Rate 18 03/23/17 11:35 Blood Pressure 144/64 03/23/17 11:35 O2 Sat by Pulse Oximetry (%) 95 03/23/17 10:15 Intake & Output 03/20/17 03/21/17 03/22/17 03/23/17 23:59 23:59 23:59 23:59 Intake Total 1814 1690 1910 328 Output Total 350 450 710 Balance 1464 1240 1200 328 Weight 244 lb 14.4 oz 247 lb 4.8 oz 262 lb 2 oz Gen: NAD CVS: RRR Lungs: CTA Abd: soft NT/ND Ext: No LE edema, left wrist and hand swollen, eyrthema improved CBC, BMP 03/23/17 05:25 03/23/17 05:25 Current Medications Allopurinol (Zyloprim -) 100 mg PO DAILY [facility] Last Admin: 03/23/17 12:12 Dose: 100 mg Carvedilol (Coreg -) 3.125 mg PO BID [facility] Last Admin: 03/23/17 12:11 Dose: 3.125 mg Cholecalciferol (Vitamin D3 -) 2,000 unit PO DAILY [facility] Last Admin: 03/23/17 12:10 Dose: 2,000 unit Heparin Sodium (Porcine) (Heparin -) 5,000 unit SQ BID [facility] Last Admin: 03/23/17 12:12 Dose: 5,000 unit Hydrocortisone (Hytone 1% Cream -) 1 applic TP BID PRN PRN Reason: FOR ITCHING Last Admin: 03/22/17 23:23 Dose: 1 applic IV Flush (Picc Line Flush) 8 ml IVPUSH PRN PRN PRN Reason: Protocol Nafcillin Sodium 2 gm/ (Dextrose) 100 mls @ 100 mls/hr IVPB Q4H-IV [facility] PRN Reason: Protocol Last Admin: 03/23/17 10:29 Dose: Not Given Insulin Aspart (Novolog Vial Sliding Scale -) 1 vial SQ TIDAC [facility] PRN Reason: Protocol Last Admin: 03/23/17 06:52 Dose: 2 units Lactulose (Cephulac (Oral Use)) 20 gm PO BID [facility] Last Admin: 03/23/17 12:19 Dose: Not Given Ondansetron HCl (Zofran Injection) 4 mg IVPB Q8H PRN PRN Reason: NAUSEA Oxycodone HCl (Roxicodone -) 10 mg PO Q3H PRN PRN Reason: PAIN Last Admin: 03/23/17 05:15 Dose: 10 mg Pantoprazole Sodium (Protonix -) 40 mg PO DAILY [facility] Last Admin: 03/23/17 12:11 Dose: 40 mg Polyethylene Glycol (Miralax (For Daily Use) -) 17 gm PO DAILY [facility] Last Admin: 03/22/17 10:18 Dose: 17 gm Sevelamer Carbonate (Renvela -) 800 mg PO TIDCM [facility] Last Admin: 03/23/17 12:13 Dose: Not Given Torsemide (Demadex -) 40 mg PO DAILY [facility] Last Admin: 03/23/17 12:11 Dose: 40 mg Vitamin E (Vitamin E -) 400 unit PO DAILY [facility] Last Admin: 03/23/17 12:17 Dose: Not Given A/P 71 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 #Oliguric Renal Failure with volume overload Tolerating HD well today Bath changed to 3k continue torsemide daily continue fluid restriction, low Na diet Trend BUN/Cr plan to do next HD on Thursday dose all meds for intermittent HD Aubrey Acharya DO Problem List - Problems (1) Cellulitis Code(s): L03.90 - CELLULITIS, UNSPECIFIED Qualifiers: Site of cellulitis: extremity Site of cellulitis of extremity: upper extremity Laterality: left Qualified Code(s): L03.114 - Cellulitis of left upper limb; L03.114 - Cellulitis of left upper limb (2) Acute renal failure (ARF) Code(s): N17.9 - ACUTE KIDNEY FAILURE, UNSPECIFIED Qualifiers: Acute renal failure type: unspecified Qualified Code(s): N17.9 - Acute kidney failure, unspecified; N17.9 - Acute kidney failure, unspecified; N17.9 - Acute kidney failure, unspecified (3) CAD (coronary artery disease) Code(s): I25.10 - ATHSCL HEART DISEASE OF [place] CORONARY ARTERY W/O ANG PCTRS Qualifiers: Coronary Disease-Associated Artery/Lesion type: [place] artery [place] vs. transplanted heart: [place] heart Associated angina: with unstable angina Qualified Code(s): I25.110 - Atherosclerotic heart disease of [place] coronary artery with unstable angina pectoris; I25.110 - Atherosclerotic heart disease of [place] coronary artery with unstable angina pectoris; I25.110 - Atherosclerotic heart disease of [place] coronary artery with unstable angina pectoris; I25.110 - Atherosclerotic heart disease of [place] coronary artery with unstable angina pectoris (4) Hypertension Code(s): I10 - ESSENTIAL (PRIMARY) HYPERTENSION Qualifiers: Hypertension type: essential hypertension Qualified Code(s): I10 - Essential (primary) hypertension; I10 - Essential (primary) hypertension; I10 - Essential (primary) hypertension (5) Gout Code(s): M10.9 - GOUT, UNSPECIFIED (6) Leukocytosis Code(s): D72.829 - ELEVATED WHITE BLOOD CELL COUNT, UNSPECIFIED
[2017-03-23] MEDS: POLYETHYLENE GLYCOL 3350 119 GM BTL PO SCH (16:46)
--- NOTE | 2017-03-23 17:04 | PN ---
Progress Note (short form) - Note Progress Note: Pt seen and examined. He states that his left arm feels dramatically better, every day it improves. He has no c/o pain. PE LUE fingers stiff as expected. + area of mild swelling over the dorsum of the left hand, much improved, nontender, no erythema There is one area of fluid fluctuance, about 2cm x 2cm over the dorsoradial aspect of the hand. It is completely nontender, both over this fluid area and the surrounding soft tissue. If this was an active infection it would be very tender, more red, more hot, and limit his ROM. Forearm now nl, much improved. Imp Dramatically improved left upper ext and hand cellulitis, with 1 small area of fluid fluctuance, which could be blood, inflammatory fluid or old infection/pus. Rec I encouraged him to move the fingers and thumb more, both active and passive stretching We talked about aspiration, he is refusing that at this time. I don't think aspiration is absolutely necessary. No surgery I&D needed at this time. Will follow up and possibly aspirate with a wide bore needle.
[2017-03-24] MEDS ORDERED: PT OWN MED DRAWER 7, Y5N ONE ×6 (01:14→20:56)
[2017-03-24] MEDS: NAFCILLIN - 2 GM in DEXTROSE 5%-WATER - 100 ML IVPB SCH ×6 (01:18→21:07)
[2017-03-24] MEDS: oxyCODONE HCL 5 MG TABLET PO PRN ×7 (03:11→22:32)
[2017-03-24] MEDS: INSULIN SLIDING SCALE (NOVOLOG) 1 VIAL SQ SCH ×3 (06:01→17:19)
[2017-03-24 07:29] LABS: MCH 29.2 pg (25.7-33.7); MCHC 33.9 g/dl (32.0-35.9); MEAN PLT VOLUME 8.6 fl (7.5-11.1); PLATELET COUNT 223 K/MM3 (134-434); RDW 22.1 % (11.9-15.9); WHITE BLOOD COUNT 17.4 K/mm3 (4.0-10.0)
[2017-03-24 07:30] LABS: ALBUMIN 1.2 g/dl (3.4-5.0); ANION GAP 10 (8-16); CALCIUM 8.2 mg/dL (8.5-10.1); CO2 30 mmol/L (21-32); CREATININE 4.5 mg/dL (0.7-1.3); GLUCOSE,RANDOM 150 mg/dL (74-106); SGOT/AST 125 U/L (15-37); SGPT/ALT 250 U/L (12-78)
[2017-03-24 07:32] LABS: ALK PHOS 86 U/L (45-117); BILIRUBIN,TOTAL 7.5 mg/dL (0.2-1.0)
[2017-03-24] MEDS: SEVELAMER CARBONATE 800 MG TAB (FP) PO SCH ×3 (09:00→17:19)
[2017-03-24] MEDS: TORSEMIDE 20 MG TABLET (FP) PO SCH (09:13)
[2017-03-24] MEDS: PANTOPRAZOLE 40 MG TABLET (FP) PO SCH (09:13)
[2017-03-24] MEDS: LACTULOSE 20 GM/30 ML UDC (FOR ORAL USE ONLY) PO SCH ×2 (09:14→21:01)
[2017-03-24] MEDS: CHOLECALCIFEROL (VITAMIN D3) 1,000 UNIT TABLET (FP) PO SCH (09:14)
[2017-03-24] MEDS: CARVEDILOL 3.125 MG TABLET (FP) PO SCH ×2 (09:14→21:06)
[2017-03-24] MEDS: ALLOPURINOL 100 MG TABLET (FP) PO SCH (09:14)
[2017-03-24] MEDS: VITAMIN E 400 INTERNATIONAL-UNITS CAPSULE (FP) PO SCH (09:15)
[2017-03-24] MEDS: HEPARIN NA (PORCINE) 5,000 UNITS/ML 1ML VIAL SQ SCH ×2 (09:16→21:06)
[2017-03-24] MEDS: POLYETHYLENE GLYCOL 3350 119 GM BTL PO SCH (10:45)
--- NOTE | 2017-03-24 11:49 | PN ---
Progress Note, Physician Chief Complaint: Events noted Not in distress Awake and alert sitting in chair History of Present Illness: Patient was seen and examined. Chart was reviewed Denies chest pain, shortness of breath or palpitations - Current Medication List Current Medications: Active Medications Allopurinol (Zyloprim -) 100 mg PO DAILY [facility] Last Admin: 03/24/17 09:14 Dose: 100 mg Carvedilol (Coreg -) 3.125 mg PO BID [facility] Last Admin: 03/24/17 09:14 Dose: 3.125 mg Cholecalciferol (Vitamin D3 -) 2,000 unit PO DAILY [facility] Last Admin: 03/24/17 09:14 Dose: 2,000 unit Heparin Sodium (Porcine) (Heparin -) 5,000 unit SQ BID [facility] Last Admin: 03/24/17 09:16 Dose: 5,000 unit Hydrocortisone (Hytone 1% Cream -) 1 applic TP BID PRN PRN Reason: FOR ITCHING Last Admin: 03/22/17 23:23 Dose: 1 applic IV Flush (Picc Line Flush) 8 ml IVPUSH PRN PRN PRN Reason: Protocol Nafcillin Sodium 2 gm/ (Dextrose) 100 mls @ 100 mls/hr IVPB Q4H-IV [facility] PRN Reason: Protocol Last Admin: 03/24/17 09:14 Dose: 100 mls/hr Insulin Aspart (Novolog Vial Sliding Scale -) 1 vial SQ TIDAC [facility] PRN Reason: Protocol Last Admin: 03/24/17 06:01 Dose: Not Given Lactulose (Cephulac (Oral Use)) 20 gm PO BID [facility] Last Admin: 03/24/17 09:14 Dose: Not Given Ondansetron HCl (Zofran Injection) 4 mg IVPB Q8H PRN PRN Reason: NAUSEA Oxycodone HCl (Roxicodone -) 10 mg PO Q3H PRN PRN Reason: PAIN Last Admin: 03/24/17 09:50 Dose: 10 mg Pantoprazole Sodium (Protonix -) 40 mg PO DAILY [facility] Last Admin: 03/24/17 09:13 Dose: 40 mg Polyethylene Glycol (Miralax (For Daily Use) -) 17 gm PO DAILY [facility] Last Admin: 03/24/17 10:45 Dose: 17 gm Sevelamer Carbonate (Renvela -) 800 mg PO TIDCM [facility] Last Admin: 03/24/17 09:00 Dose: 800 mg Torsemide (Demadex -) 40 mg PO DAILY [facility] Last Admin: 03/24/17 09:13 Dose: 40 mg Vitamin E (Vitamin E -) 400 unit PO DAILY [facility] Last Admin: 03/24/17 09:15 Dose: Not Given - Objective Vital Signs: Vital Signs Temperature 98.2 F 03/24/17 10:00 Pulse Rate 79 03/24/17 10:00 Respiratory Rate 20 03/24/17 10:00 Blood Pressure 102/50 03/24/17 10:00 O2 Sat by Pulse Oximetry (%) 97 03/24/17 09:00 Neck: Yes: Supple Cardiovascular: Yes: Regular Rate and Rhythm, S1, S2 Respiratory: Yes: CTA Bilaterally Gastrointestinal: Yes: Normal Bowel Sounds, Soft. No: Tenderness Edema: Yes Additional Findings/Remarks: - Review of Systems Constitutional: no symptoms reported Respiratory: denies: Cough denies: Sputum Production Cardiovascular: denies: chest pain, SOB, palpitations Gastrointestinal: denies Nausea, Vomiting, Diarrhea, Constipation or Abdominal Pain Genitourinary: No symptoms reported Musculoskeletal: No symptoms reported Endocrine: No symptoms reported Labs: CBC, BMP 03/24/17 05:30 03/24/17 05:30 Problem List - Problems (1) Abnormal liver enzymes Code(s): R74.8 - ABNORMAL LEVELS OF OTHER SERUM ENZYMES (2) Acute renal failure (ARF) Code(s): N17.9 - ACUTE KIDNEY FAILURE, UNSPECIFIED Qualifiers: Acute renal failure type: unspecified Qualified Code(s): N17.9 - Acute kidney failure, unspecified; N17.9 - Acute kidney failure, unspecified; N17.9 - Acute kidney failure, unspecified (3) Anemia Code(s): D64.9 - ANEMIA, UNSPECIFIED Qualifiers: Iron deficiency anemia type: chronic blood loss (4) CAD (coronary artery disease) Code(s): I25.10 - ATHSCL HEART DISEASE OF [place] CORONARY ARTERY W/O ANG PCTRS Qualifiers: Coronary Disease-Associated Artery/Lesion type: [place] artery [place] vs. transplanted heart: [place] heart Associated angina: with unstable angina Qualified Code(s): I25.110 - Atherosclerotic heart disease of [place] coronary artery with unstable angina pectoris; I25.110 - Atherosclerotic heart disease of [place] coronary artery with unstable angina pectoris; I25.110 - Atherosclerotic heart disease of [place] coronary artery with unstable angina pectoris; I25.110 - Atherosclerotic heart disease of [place] coronary artery with unstable angina pectoris (5) Cellulitis Code(s): L03.90 - CELLULITIS, UNSPECIFIED Qualifiers: Site of cellulitis: extremity Site of cellulitis of extremity: upper extremity Laterality: left Qualified Code(s): L03.114 - Cellulitis of left upper limb; L03.114 - Cellulitis of left upper limb (6) Hyperlipidemia Code(s): E78.5 - HYPERLIPIDEMIA, UNSPECIFIED Qualifiers: Hyperlipidemia type: pure hypercholesterolemia Qualified Code(s): E78.00 - Pure hypercholesterolemia, unspecified; E78.00 - Pure hypercholesterolemia, unspecified; E78.00 - Pure hypercholesterolemia, unspecified; E78.0 - Pure hypercholesterolemia (7) Hypertension Code(s): I10 - ESSENTIAL (PRIMARY) HYPERTENSION Qualifiers: Hypertension type: essential hypertension Qualified Code(s): I10 - Essential (primary) hypertension; I10 - Essential (primary) hypertension; I10 - Essential (primary) hypertension (8) MSSA (methicillin susceptible Staphylococcus aureus) infection Code(s): A49.01 - METHICILLIN SUSCEP STAPH INFECTION, UNSP SITE (9) Respiratory arrest before cardiac arrest Code(s): I46.9 - CARDIAC ARREST, CAUSE UNSPECIFIED R09.2 - RESPIRATORY ARREST (10) Hx of CABG Code(s): Z95.1 - PRESENCE OF AORTOCORONARY BYPASS GRAFT Assessment/Plan 1. Cardiopulmonary arrest with PEA (Pulseless Electrical Activity) post resuscitation and post respiratory failure 2. Abnormal EKG, unclear underlying atrial rhythm now resolved most likely related profound metabolic/lactic acidosis 3. CAD post [place]/CABG angina pectoris with evidence of demand ischemic injury in context of acute pulmonary edema - resolved 4. Moderate LV systolic dysfunction with acute class III-IV NYHA classification LV failure 5. Acute renal failure on HD 6. Anemia, recent GI bleed related to peptic ulcer disease, post transfusion 7. History of HTN - episode of hypotension post pressor support - now stable 8. DM 9. Hypercholesterolemia 10. Cellulitis with recent MSSA sepsis syndrome with septic shock 11. Hyponatremia 12. Abnormal LFTs PLAN: 1. Follow LFTs, electrolytes and renal function - LFTs improving 2. Continue Heparin SQ, Plavix, but with caution and use PPI 3. HD per the renal service with ultrafiltration and continue Demadex 4. Continue Coreg with uptitration as tolerated. Restart Statin once LFT recovers 5. Transfusion PRN to maintain Hgb equal or > 8.0 6. Complete antibiotic course per ID Patient plans to follow up with [facility] as outpatient Jonnathan Nogueira MD
--- NOTE | 2017-03-24 11:59 | PN ---
Progress Note (short form) - Note Progress Note: Renal Follow up for JOE Pt seen and examined in Tele sitting in chair no acute complaints no Chest pain, SOB, N/V/D Vital Signs Temperature 98.2 F 03/24/17 10:00 Pulse Rate 79 03/24/17 10:00 Respiratory Rate 20 03/24/17 10:00 Blood Pressure 102/50 03/24/17 10:00 O2 Sat by Pulse Oximetry (%) 97 03/24/17 09:00 Intake & Output 03/21/17 03/22/17 03/23/17 03/24/17 23:59 23:59 23:59 23:59 Intake Total 1690 1910 828 270 Output Total 450 710 425 Balance 1240 1200 828 -155 Weight 247 lb 4.8 oz 262 lb 2 oz 260 lb 4 oz Gen: NAD CVS: RRR Lungs: CTA Abd: soft NT/ND Ext: No LE edema, left wrist and hand swollen, eyrthema improved CBC, BMP 03/24/17 05:30 03/24/17 05:30 Laboratory Tests 03/24/17 05:30 Calcium 8.2 L AST 125 H ALT 250 H Alkaline Phosphatase 86 Current Medications Allopurinol (Zyloprim -) 100 mg PO DAILY [facility] Last Admin: 03/24/17 09:14 Dose: 100 mg Carvedilol (Coreg -) 3.125 mg PO BID [facility] Last Admin: 03/24/17 09:14 Dose: 3.125 mg Cholecalciferol (Vitamin D3 -) 2,000 unit PO DAILY [facility] Last Admin: 03/24/17 09:14 Dose: 2,000 unit Heparin Sodium (Porcine) (Heparin -) 5,000 unit SQ BID [facility] Last Admin: 03/24/17 09:16 Dose: 5,000 unit Hydrocortisone (Hytone 1% Cream -) 1 applic TP BID PRN PRN Reason: FOR ITCHING Last Admin: 03/22/17 23:23 Dose: 1 applic IV Flush (Picc Line Flush) 8 ml IVPUSH PRN PRN PRN Reason: Protocol Nafcillin Sodium 2 gm/ (Dextrose) 100 mls @ 100 mls/hr IVPB Q4H-IV [facility] PRN Reason: Protocol Last Admin: 03/24/17 09:14 Dose: 100 mls/hr Insulin Aspart (Novolog Vial Sliding Scale -) 1 vial SQ TIDAC [facility] PRN Reason: Protocol Last Admin: 03/24/17 11:49 Dose: 4 units Lactulose (Cephulac (Oral Use)) 20 gm PO BID [facility] Last Admin: 03/24/17 09:14 Dose: Not Given Ondansetron HCl (Zofran Injection) 4 mg IVPB Q8H PRN PRN Reason: NAUSEA Oxycodone HCl (Roxicodone -) 10 mg PO Q3H PRN PRN Reason: PAIN Last Admin: 03/24/17 09:50 Dose: 10 mg Pantoprazole Sodium (Protonix -) 40 mg PO DAILY [facility] Last Admin: 03/24/17 09:13 Dose: 40 mg Polyethylene Glycol (Miralax (For Daily Use) -) 17 gm PO DAILY [facility] Last Admin: 03/24/17 10:45 Dose: 17 gm Sevelamer Carbonate (Renvela -) 800 mg PO TIDCM [facility] Last Admin: 03/24/17 11:49 Dose: 800 mg Torsemide (Demadex -) 40 mg PO DAILY [facility] Last Admin: 03/24/17 09:13 Dose: 40 mg Vitamin E (Vitamin E -) 400 unit PO DAILY [facility] Last Admin: 03/24/17 09:15 Dose: Not Given A/P 71 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 #Oliguric Renal Failure with volume overload s/p dialysis yesterday, tolerated it well with 3.5kg UF no plans for dialysis today continue po torsemide, trend urine output plan for next HD tomorrow morning Trend BUN/Cr Keep MAP> 65 avoid NSAIDs, IV contrast Aubrey Acharya DO Problem List - Problems (1) Cellulitis Code(s): L03.90 - CELLULITIS, UNSPECIFIED Qualifiers: Site of cellulitis: extremity Site of cellulitis of extremity: upper extremity Laterality: left Qualified Code(s): L03.114 - Cellulitis of left upper limb; L03.114 - Cellulitis of left upper limb (2) Acute renal failure (ARF) Code(s): N17.9 - ACUTE KIDNEY FAILURE, UNSPECIFIED Qualifiers: Acute renal failure type: unspecified Qualified Code(s): N17.9 - Acute kidney failure, unspecified; N17.9 - Acute kidney failure, unspecified; N17.9 - Acute kidney failure, unspecified (3) CAD (coronary artery disease) Code(s): I25.10 - ATHSCL HEART DISEASE OF [place] CORONARY ARTERY W/O ANG PCTRS Qualifiers: Coronary Disease-Associated Artery/Lesion type: [place] artery [place] vs. transplanted heart: [place] heart Associated angina: with unstable angina Qualified Code(s): I25.110 - Atherosclerotic heart disease of [place] coronary artery with unstable angina pectoris; I25.110 - Atherosclerotic heart disease of [place] coronary artery with unstable angina pectoris; I25.110 - Atherosclerotic heart disease of [place] coronary artery with unstable angina pectoris; I25.110 - Atherosclerotic heart disease of [place] coronary artery with unstable angina pectoris (4) Hypertension Code(s): I10 - ESSENTIAL (PRIMARY) HYPERTENSION Qualifiers: Hypertension type: essential hypertension Qualified Code(s): I10 - Essential (primary) hypertension; I10 - Essential (primary) hypertension; I10 - Essential (primary) hypertension (5) Gout Code(s): M10.9 - GOUT, UNSPECIFIED (6) Leukocytosis Code(s): D72.829 - ELEVATED WHITE BLOOD CELL COUNT, UNSPECIFIED
--- NOTE | 2017-03-24 13:31 | PN ---
Progress Note (short form) - Note Progress Note: PULMONARY Denies shortness of breath, chest pain. Still with swollen legs Last Vital Signs Temp Pulse Resp BP Pulse Ox 98.2 F 79 20 102/50 97 03/24/17 10:00 03/24/17 10:00 03/24/17 10:00 03/24/17 10:00 03/24/17 09:00 Gen: NAD in chair Heart: RRR Lung: decreased breath sounds at the bases Abd: soft, nontender Ext: + edema CBC, BMP 03/24/17 05:30 03/24/17 05:30 Active Medications Allopurinol (Zyloprim -) 100 mg PO DAILY [facility] Last Admin: 03/24/17 09:14 Dose: 100 mg Carvedilol (Coreg -) 3.125 mg PO BID [facility] Last Admin: 03/24/17 09:14 Dose: 3.125 mg Cholecalciferol (Vitamin D3 -) 2,000 unit PO DAILY [facility] Last Admin: 03/24/17 09:14 Dose: 2,000 unit Heparin Sodium (Porcine) (Heparin -) 5,000 unit SQ BID [facility] Last Admin: 03/24/17 09:16 Dose: 5,000 unit Hydrocortisone (Hytone 1% Cream -) 1 applic TP BID PRN PRN Reason: FOR ITCHING Last Admin: 03/22/17 23:23 Dose: 1 applic IV Flush (Picc Line Flush) 8 ml IVPUSH PRN PRN PRN Reason: Protocol Nafcillin Sodium 2 gm/ (Dextrose) 100 mls @ 100 mls/hr IVPB Q4H-IV [facility] PRN Reason: Protocol Last Admin: 03/24/17 09:14 Dose: 100 mls/hr Insulin Aspart (Novolog Vial Sliding Scale -) 1 vial SQ TIDAC [facility] PRN Reason: Protocol Last Admin: 03/24/17 11:49 Dose: 4 units Lactulose (Cephulac (Oral Use)) 20 gm PO BID [facility] Last Admin: 03/24/17 09:14 Dose: Not Given Ondansetron HCl (Zofran Injection) 4 mg IVPB Q8H PRN PRN Reason: NAUSEA Oxycodone HCl (Roxicodone -) 10 mg PO Q3H PRN PRN Reason: PAIN Last Admin: 03/24/17 12:50 Dose: 10 mg Pantoprazole Sodium (Protonix -) 40 mg PO DAILY [facility] Last Admin: 03/24/17 09:13 Dose: 40 mg Polyethylene Glycol (Miralax (For Daily Use) -) 17 gm PO DAILY [facility] Last Admin: 03/24/17 10:45 Dose: 17 gm Sevelamer Carbonate (Renvela -) 800 mg PO TIDCM [facility] Last Admin: 03/24/17 11:49 Dose: 800 mg Torsemide (Demadex -) 40 mg PO DAILY [facility] Last Admin: 03/24/17 09:13 Dose: 40 mg Vitamin E (Vitamin E -) 400 unit PO DAILY [facility] Last Admin: 03/24/17 09:15 Dose: Not Given A/P s/p Cardiopulmonary Arrest Metabolic/Lactic Acidosis Acute Kidney Injury requiring HD +Troponins/CAD/r/o ACS/NSTEMI Acute on Chronic LV Systolic/Diastolic Heart Failure Staph Bacteremia HTN DM Recent GI Bleed - HD per renal with ultrafiltration - continue antibiotics per ID - elevate legs - torsemide - monitor urine output, creatinine - daily weights - rehab/PT
--- NOTE | 2017-03-24 14:21 | PN ---
Progress Note (short form) - Note Progress Note: Patient sitting at bedside. Somewhat SOB but Pulse OX Ok. Troubled by Rising WBC over 00. Patient will now agree to Aspiration of collection on hand. Will add CT Chest, Abd, Pelvis and left hip (pain). at bedside. No dialysis today; Some urination but still not affecting the renal lab significantly. On Exam: Vital Signs Temp 98.2 F 03/24/17 10:00 Pulse 79 03/24/17 10:00 Resp 20 03/24/17 10:00 BP 102/50 03/24/17 10:00 Pulse Ox 97 03/24/17 09:00 Intake & Output 03/23/17 03/24/17 03/24/17 23:59 11:59 23:59 Intake Total 500 270 Output Total 425 Balance 500 -155 Weight 260 lb 4 oz Intake: IV 100 lfa 22 03/23 100 Oral 400 270 Output: Urine 425 Void 425 Other: Voiding Method Urinal Urinal # Unmeasured Voids Void 2 Bowel Movement Yes Weight Measurement Method Standing Scale Tired but alert Chest: Decreased breath sounds Cor Reg Abd: Distended but soft Legs: 2-3+ pedal edema Edema and tenderness lower body near Left Sacroiliac area Abnormal Lab Results 03/18/17 03/24/17 03/24/17 09:25 05:30 05:30 WBC 17.4 H RBC 2.92 L Hgb 8.5 L Hct 25.1 L RDW 22.1 H Sodium 131 L Potassium 3.4 L Chloride 91 L BUN 37 H D Creatinine 4.5 H D Random Glucose 150 H Calcium 8.2 L Total Bilirubin 7.5 H AST 125 H ALT 250 H Total Protein 5.0 L Albumin 1.2 L Crossmatch See Detail IMP: MSSA Sepsis Acute Cellulitis left hand wrist and forearm resolving ?Sterile collection left hand Rising WBC count Hx respiratory Arrest Acute Cardiac event Acute renal failure due to Sepsis PLAN: I spoke to Dr. Ortega; he will aspirate collection on the dorsum of his hand. F/U Lab CT scans of chest abdomen pelvis and left hip. Problem List - Problems (1) Cellulitis Code(s): L03.90 - CELLULITIS, UNSPECIFIED Qualifiers: Site of cellulitis: extremity Site of cellulitis of extremity: upper extremity Laterality: left Qualified Code(s): L03.114 - Cellulitis of left upper limb; L03.114 - Cellulitis of left upper limb (2) GI bleed Code(s): K92.2 - GASTROINTESTINAL HEMORRHAGE, UNSPECIFIED Qualifiers: GI bleed type/associated pathology: unspecified gastrointestinal hemorrhage type Qualified Code(s): K92.2 - Gastrointestinal hemorrhage, unspecified; K92.2 - Gastrointestinal hemorrhage, unspecified (3) Acute renal failure (ARF) Code(s): N17.9 - ACUTE KIDNEY FAILURE, UNSPECIFIED Qualifiers: Acute renal failure type: unspecified Qualified Code(s): N17.9 - Acute kidney failure, unspecified; N17.9 - Acute kidney failure, unspecified; N17.9 - Acute kidney failure, unspecified (4) CAD (coronary artery disease) Code(s): I25.10 - ATHSCL HEART DISEASE OF [place] CORONARY ARTERY W/O ANG PCTRS Qualifiers: Coronary Disease-Associated Artery/Lesion type: [place] artery [place] vs. transplanted heart: [place] heart Associated angina: with unstable angina Qualified Code(s): I25.110 - Atherosclerotic heart disease of [place] coronary artery with unstable angina pectoris; I25.110 - Atherosclerotic heart disease of [place] coronary artery with unstable angina pectoris; I25.110 - Atherosclerotic heart disease of [place] coronary artery with unstable angina pectoris; I25.110 - Atherosclerotic heart disease of [place] coronary artery with unstable angina pectoris (5) Gout Code(s): M10.9 - GOUT, UNSPECIFIED (6) Hypertension Code(s): I10 - ESSENTIAL (PRIMARY) HYPERTENSION Qualifiers: Hypertension type: essential hypertension Qualified Code(s): I10 - Essential (primary) hypertension; I10 - Essential (primary) hypertension; I10 - Essential (primary) hypertension (7) Anemia Code(s): D64.9 - ANEMIA, UNSPECIFIED Qualifiers: Iron deficiency anemia type: chronic blood loss (8) Leukocytosis Code(s): D72.829 - ELEVATED WHITE BLOOD CELL COUNT, UNSPECIFIED (9) Respiratory arrest before cardiac arrest Code(s): I46.9 - CARDIAC ARREST, CAUSE UNSPECIFIED R09.2 - RESPIRATORY ARREST (10) Respiratory arrest Code(s): R09.2 - RESPIRATORY ARREST
--- NOTE | 2017-03-24 15:25 | PN ---
Progress Note, Physician History of Present Illness: clinically patient looks stable wbc continues to increase plan for ct scan tomorrow rash has started to improve - Current Medication List Current Medications: Active Medications Allopurinol (Zyloprim -) 100 mg PO DAILY [facility] Last Admin: 03/24/17 09:14 Dose: 100 mg Carvedilol (Coreg -) 3.125 mg PO BID [facility] Last Admin: 03/24/17 09:14 Dose: 3.125 mg Cholecalciferol (Vitamin D3 -) 2,000 unit PO DAILY [facility] Last Admin: 03/24/17 09:14 Dose: 2,000 unit Heparin Sodium (Porcine) (Heparin -) 5,000 unit SQ BID [facility] Last Admin: 03/24/17 09:16 Dose: 5,000 unit Hydrocortisone (Hytone 1% Cream -) 1 applic TP BID PRN PRN Reason: FOR ITCHING Last Admin: 03/22/17 23:23 Dose: 1 applic IV Flush (Picc Line Flush) 8 ml IVPUSH PRN PRN PRN Reason: Protocol Nafcillin Sodium 2 gm/ (Dextrose) 100 mls @ 100 mls/hr IVPB Q4H-IV [facility] PRN Reason: Protocol Last Admin: 03/24/17 13:46 Dose: 100 mls/hr Insulin Aspart (Novolog Vial Sliding Scale -) 1 vial SQ TIDAC [facility] PRN Reason: Protocol Last Admin: 03/24/17 11:49 Dose: 4 units Lactulose (Cephulac (Oral Use)) 20 gm PO BID [facility] Last Admin: 03/24/17 09:14 Dose: Not Given Ondansetron HCl (Zofran Injection) 4 mg IVPB Q8H PRN PRN Reason: NAUSEA Oxycodone HCl (Roxicodone -) 10 mg PO Q3H PRN PRN Reason: PAIN Last Admin: 03/24/17 12:50 Dose: 10 mg Pantoprazole Sodium (Protonix -) 40 mg PO DAILY [facility] Last Admin: 03/24/17 09:13 Dose: 40 mg Polyethylene Glycol (Miralax (For Daily Use) -) 17 gm PO DAILY [facility] Last Admin: 03/24/17 10:45 Dose: 17 gm Sevelamer Carbonate (Renvela -) 800 mg PO TIDCM [facility] Last Admin: 03/24/17 11:49 Dose: 800 mg Torsemide (Demadex -) 40 mg PO DAILY [facility] Last Admin: 03/24/17 09:13 Dose: 40 mg Vitamin E (Vitamin E -) 400 unit PO DAILY [facility] Last Admin: 03/24/17 09:15 Dose: Not Given - Objective Vital Signs: Vital Signs Temperature 97.9 F 03/24/17 14:23 Pulse Rate 75 03/24/17 14:23 Respiratory Rate 18 03/24/17 14:23 Blood Pressure 110/43 03/24/17 14:23 O2 Sat by Pulse Oximetry (%) 97 03/24/17 09:00 Constitutional: Yes: No Distress, Calm Cardiovascular: Yes: Regular Rate and Rhythm Respiratory: Yes: Regular, CTA Bilaterally Gastrointestinal: Yes: Normal Bowel Sounds, Soft Musculoskeletal: Yes: WNL Extremities: Yes: WNL Neurological: Yes: Alert, Oriented Psychiatric: Yes: Alert, Oriented Labs: CBC, BMP 03/24/17 05:30 03/24/17 05:30 INR, PTT INR 1.69 (0.82-1.09) H 03/20/17 10:23 - ....Imaging Ultrasound: Report Reviewed, Image Reviewed Assessment/Plan sepsis septic left wrist joint gm positive bacteremia fever tenderness leukocytosis nstemi increased bilrubin plan will stop nafcilin tomorrow will start patient on meropenam wbc probably coming from gall bladder will see what the ct scan shows rest as per primary team
[2017-03-24] MEDS ORDERED: MEROPENEM 500 MG VIAL (RESTRICTED TO ID) IVPB SCH (15:30)
[2017-03-24] MEDS: MEROPENEM 500 MG in DEXTROSE 5%-WATER - 100 ML IVPB SCH (16:28)
--- NOTE | 2017-03-24 17:21 | PN ---
Progress Note (short form) - Note Progress Note: Pt seen and examined after discussion with PMD, Dr Boyd. Under sterile conditions I aspirated 2cc of pus from the fluid collection on the dorsal aspect of the left hand., and then expressed another 2cc of pus, and 5cc of blood. Specimen sent for bacterial culture, sensitivity, cell count, etc
[2017-03-25] MEDS ORDERED: PT OWN MED DRAWER 7, Y5N ONE ×4 (02:04→10:07)
[2017-03-25] MEDS: NAFCILLIN - 2 GM in DEXTROSE 5%-WATER - 100 ML IVPB SCH ×2 (02:08→06:16)
[2017-03-25] MEDS: oxyCODONE HCL 5 MG TABLET PO PRN ×6 (02:08→21:27)
[2017-03-25] MEDS: MEROPENEM 500 MG in DEXTROSE 5%-WATER - 100 ML IVPB SCH ×2 (04:15→15:13)
[2017-03-25] MEDS: INSULIN SLIDING SCALE (NOVOLOG) 1 VIAL SQ SCH ×3 (06:17→17:38)
[2017-03-25] MEDS: SEVELAMER CARBONATE 800 MG TAB (FP) PO SCH ×4 (08:00→17:38)
[2017-03-25 08:41] LABS: MCH 28.8 pg (25.7-33.7); MCHC 33.8 g/dl (32.0-35.9); MEAN CELL VOLUME 85.3 fl (80-96); MEAN PLT VOLUME 8.6 fl (7.5-11.1); PLATELET COUNT 232 K/MM3 (134-434); RDW 22.6 % (11.9-15.9); WHITE BLOOD COUNT 19.2 K/mm3 (4.0-10.0)
--- NOTE | 2017-03-25 08:59 | PN ---
Progress Note (short form) - Note Progress Note: Patient seen and examined today. Sleepy and getting his hemodialysis treatment. Dr. Ortega aspirated some pus and blood from his left hand collection last ryan. For CT Chest and Abd and Pelvis and hip today due to rising WBC. 450 cc urine today. On Exam: Vital Signs Temp 98.2 F 03/25/17 06:45 Pulse 78 03/25/17 07:50 Resp 18 03/25/17 07:50 BP 120/63 03/25/17 07:50 Pulse Ox 98 03/24/17 21:00 Intake & Output 03/24/17 03/24/17 03/25/17 11:59 23:59 11:59 Intake Total 270 400 400 Output Total 425 225 450 Balance -155 175 -50 Weight 260 lb 4 oz Intake: IVPB 0 400 Oral 270 400 Output: Urine 425 225 450 Void 425 225 450 Other: Voiding Method Urinal Urinal Bowel Movement Yes Yes # Bowel Movements 1 Weight Measurement Method Standing Scale Sleepy Chest:Decreased breath sounds both base Cor Reg Abd: Obese but non tender Ext: 3=4+ edema both legs Sclera icteric ImP: MSSA sepsis due to acute cellulitis left fuentes, wrist and forearm Collection left hand Aspirated Acute renal failure due to sepsis Total body edema Left Hip pain:For CT scan S/P CABG X2 DM controlled Plan: CT chest, abd, pelvis and hip F/U ID MD and Renal MD F/U lab OOB Dialysis Problem List - Problems (1) Cellulitis Code(s): L03.90 - CELLULITIS, UNSPECIFIED Qualifiers: Site of cellulitis: extremity Site of cellulitis of extremity: upper extremity Laterality: left Qualified Code(s): L03.114 - Cellulitis of left upper limb; L03.114 - Cellulitis of left upper limb (2) GI bleed Code(s): K92.2 - GASTROINTESTINAL HEMORRHAGE, UNSPECIFIED Qualifiers: GI bleed type/associated pathology: unspecified gastrointestinal hemorrhage type Qualified Code(s): K92.2 - Gastrointestinal hemorrhage, unspecified; K92.2 - Gastrointestinal hemorrhage, unspecified (3) Acute renal failure (ARF) Code(s): N17.9 - ACUTE KIDNEY FAILURE, UNSPECIFIED Qualifiers: Acute renal failure type: unspecified Qualified Code(s): N17.9 - Acute kidney failure, unspecified; N17.9 - Acute kidney failure, unspecified; N17.9 - Acute kidney failure, unspecified (4) CAD (coronary artery disease) Code(s): I25.10 - ATHSCL HEART DISEASE OF [place] CORONARY ARTERY W/O ANG PCTRS Qualifiers: Coronary Disease-Associated Artery/Lesion type: [place] artery [place] vs. transplanted heart: [place] heart Associated angina: with unstable angina Qualified Code(s): I25.110 - Atherosclerotic heart disease of [place] coronary artery with unstable angina pectoris; I25.110 - Atherosclerotic heart disease of [place] coronary artery with unstable angina pectoris; I25.110 - Atherosclerotic heart disease of [place] coronary artery with unstable angina pectoris; I25.110 - Atherosclerotic heart disease of [place] coronary artery with unstable angina pectoris (5) Gout Code(s): M10.9 - GOUT, UNSPECIFIED (6) Hypertension Code(s): I10 - ESSENTIAL (PRIMARY) HYPERTENSION Qualifiers: Hypertension type: essential hypertension Qualified Code(s): I10 - Essential (primary) hypertension; I10 - Essential (primary) hypertension; I10 - Essential (primary) hypertension (7) Anemia Code(s): D64.9 - ANEMIA, UNSPECIFIED Qualifiers: Iron deficiency anemia type: chronic blood loss (8) Leukocytosis Code(s): D72.829 - ELEVATED WHITE BLOOD CELL COUNT, UNSPECIFIED (9) Respiratory arrest before cardiac arrest Code(s): I46.9 - CARDIAC ARREST, CAUSE UNSPECIFIED R09.2 - RESPIRATORY ARREST (10) Respiratory arrest Code(s): R09.2 - RESPIRATORY ARREST
[2017-03-25 09:06] LABS: ANION GAP 15 (8-16); CO2 28 mmol/L (21-32); GLUCOSE,RANDOM 148 mg/dL (74-106); MAGNESIUM 2.1 mg/dL (1.8-2.4); PHOSPHOROUS 5.2 mg/dL (2.5-4.9)
[2017-03-25] MEDS: POLYETHYLENE GLYCOL 3350 119 GM BTL PO SCH (10:00)
--- NOTE | 2017-03-25 10:00 | PN ---
Progress Note (short form) - Note Progress Note: Pt seen and examined. Being dialyzed. Appears comfortable. Left hand looks good, perhaps a little less swollen, less erythematous. All cultures pending. Will f/u
[2017-03-25] MEDS: VITAMIN E 400 INTERNATIONAL-UNITS CAPSULE (FP) PO SCH (10:39)
[2017-03-25] MEDS: LACTULOSE 20 GM/30 ML UDC (FOR ORAL USE ONLY) PO SCH ×2 (10:39→21:27)
[2017-03-25] MEDS: CARVEDILOL 3.125 MG TABLET (FP) PO SCH ×2 (11:22→21:27)
[2017-03-25] MEDS: HEPARIN NA (PORCINE) 5,000 UNITS/ML 1ML VIAL SQ SCH ×2 (11:25→21:27)
--- NOTE | 2017-03-25 11:37 | PN ---
Progress Note, Physician History of Present Illness: Remains comfortable on NC, hemodynamically stable. Awaiting CT to evaluate for occult abscess, post left hand fluid collection evacuation. - Current Medication List Current Medications: Active Medications Allopurinol (Zyloprim -) 100 mg PO DAILY [facility] Last Admin: 03/24/17 09:14 Dose: 100 mg Carvedilol (Coreg -) 3.125 mg PO BID [facility] Last Admin: 03/25/17 11:22 Dose: 3.125 mg Cholecalciferol (Vitamin D3 -) 2,000 unit PO DAILY [facility] Last Admin: 03/24/17 09:14 Dose: 2,000 unit Heparin Sodium (Porcine) (Heparin -) 5,000 unit SQ BID [facility] Last Admin: 03/25/17 11:25 Dose: 5,000 unit Hydrocortisone (Hytone 1% Cream -) 1 applic TP BID PRN PRN Reason: FOR ITCHING Last Admin: 03/22/17 23:23 Dose: 1 applic IV Flush (Picc Line Flush) 8 ml IVPUSH PRN PRN PRN Reason: Protocol Meropenem 500 mg/ Dextrose 100 mls @ 200 mls/hr IVPB Q12H [facility] Last Admin: 03/25/17 04:15 Dose: 200 mls/hr Insulin Aspart (Novolog Vial Sliding Scale -) 1 vial SQ TIDAC [facility] PRN Reason: Protocol Last Admin: 03/25/17 11:34 Dose: Not Given Lactulose (Cephulac (Oral Use)) 20 gm PO BID [facility] Last Admin: 03/25/17 10:39 Dose: Not Given Ondansetron HCl (Zofran Injection) 4 mg IVPB Q8H PRN PRN Reason: NAUSEA Oxycodone HCl (Roxicodone -) 10 mg PO Q3H PRN PRN Reason: PAIN Last Admin: 03/25/17 10:36 Dose: 10 mg Pantoprazole Sodium (Protonix -) 40 mg PO DAILY [facility] Last Admin: 03/24/17 09:13 Dose: 40 mg Polyethylene Glycol (Miralax (For Daily Use) -) 17 gm PO DAILY [facility] Last Admin: 03/24/17 10:45 Dose: 17 gm Sevelamer Carbonate (Renvela -) 800 mg PO TIDCM [facility] Last Admin: 03/25/17 08:00 Dose: Not Given Torsemide (Demadex -) 40 mg PO DAILY [facility] Last Admin: 03/24/17 09:13 Dose: 40 mg Vitamin E (Vitamin E -) 400 unit PO DAILY [facility] Last Admin: 03/25/17 10:39 Dose: Not Given - Objective Vital Signs: Vital Signs Temperature 98.2 F 03/25/17 06:45 Pulse Rate 80 03/25/17 10:20 Respiratory Rate 18 03/25/17 10:20 Blood Pressure 131/61 03/25/17 10:20 O2 Sat by Pulse Oximetry (%) 98 03/24/17 21:00 Constitutional: Yes: No Distress, Calm Neck: Yes: Supple Cardiovascular: Yes: Regular Rate and Rhythm Respiratory: Yes: Regular, Diminished, On Nasal O2 Gastrointestinal: Yes: Normal Bowel Sounds, Soft, Abdomen, Obese Edema: Yes Edema: LLE: 2+, RLE: 2+ Labs: CBC, BMP 03/25/17 07:00 03/25/17 07:00 INR, PTT INR 1.69 (0.82-1.09) H 03/20/17 10:23 - ....Imaging EKG: Report Reviewed (Tele: SR and occ PVC) Problem List - Problems (1) Acute renal failure (ARF) Code(s): N17.9 - ACUTE KIDNEY FAILURE, UNSPECIFIED Qualifiers: Acute renal failure type: unspecified Qualified Code(s): N17.9 - Acute kidney failure, unspecified; N17.9 - Acute kidney failure, unspecified; N17.9 - Acute kidney failure, unspecified (2) CAD (coronary artery disease) Code(s): I25.10 - ATHSCL HEART DISEASE OF [place] CORONARY ARTERY W/O ANG PCTRS Qualifiers: Coronary Disease-Associated Artery/Lesion type: [place] artery [place] vs. transplanted heart: [place] heart Associated angina: with unstable angina Qualified Code(s): I25.110 - Atherosclerotic heart disease of [place] coronary artery with unstable angina pectoris; I25.110 - Atherosclerotic heart disease of [place] coronary artery with unstable angina pectoris; I25.110 - Atherosclerotic heart disease of [place] coronary artery with unstable angina pectoris; I25.110 - Atherosclerotic heart disease of [place] coronary artery with unstable angina pectoris (3) Cellulitis Code(s): L03.90 - CELLULITIS, UNSPECIFIED Qualifiers: Site of cellulitis: extremity Site of cellulitis of extremity: upper extremity Laterality: left Qualified Code(s): L03.114 - Cellulitis of left upper limb; L03.114 - Cellulitis of left upper limb (4) GI bleed Code(s): K92.2 - GASTROINTESTINAL HEMORRHAGE, UNSPECIFIED Qualifiers: GI bleed type/associated pathology: unspecified gastrointestinal hemorrhage type Qualified Code(s): K92.2 - Gastrointestinal hemorrhage, unspecified; K92.2 - Gastrointestinal hemorrhage, unspecified (5) Hypertension Code(s): I10 - ESSENTIAL (PRIMARY) HYPERTENSION Qualifiers: Hypertension type: essential hypertension Qualified Code(s): I10 - Essential (primary) hypertension; I10 - Essential (primary) hypertension; I10 - Essential (primary) hypertension (6) MSSA (methicillin susceptible Staphylococcus aureus) infection Code(s): A49.01 - METHICILLIN SUSCEP STAPH INFECTION, UNSP SITE (7) Respiratory arrest before cardiac arrest Code(s): I46.9 - CARDIAC ARREST, CAUSE UNSPECIFIED R09.2 - RESPIRATORY ARREST (8) Hyperlipidemia Code(s): E78.5 - HYPERLIPIDEMIA, UNSPECIFIED Qualifiers: Hyperlipidemia type: pure hypercholesterolemia Qualified Code(s): E78.00 - Pure hypercholesterolemia, unspecified; E78.00 - Pure hypercholesterolemia, unspecified; E78.00 - Pure hypercholesterolemia, unspecified; E78.0 - Pure hypercholesterolemia (9) Cholestasis Code(s): K83.1 - OBSTRUCTION OF BILE DUCT (10) Anemia Code(s): D64.9 - ANEMIA, UNSPECIFIED Qualifiers: Iron deficiency anemia type: chronic blood loss Assessment/Plan 03/17/2017 CHEN 1. LV wall motion abnormality with moderate reduction in LV EF, estimated between 35-40% 2. MAC 3. Normal Mitral valve leaflets with no vegitation, trace to mild MR 4. AV sclerosis with no vegitation, no AI 5. Normal Tricuspid leaflets with no vegitation, mild TR 6. Faintly visualized Pulmonic valve with no vegitation 7. Intact atrial septum with no intra-cardiac shunting by color flow 8. Mild to degree of layered athero-sclerosis in the descending thoracic aorta and the distal thoracic arch 1. Cardiopulmonary arrest with PEA (Pulseless Electrical Activity) post resuscitation and post respiratory failure 2. Abnormal EKG, unclear underlying atrial rhythm now resolved most likely related profound metabolic/lactic acidosis 3. CAD post OK/CABG angina pectoris with evidence of demand ischemic injury in context of acute pulmonary edema - resolved 4. Moderate LV systolic dysfunction with acute class III-IV NYHA classification LV failure 5. Acute kidney injury on HD 6. Anemia, recent GI bleed related to peptic ulcer disease, post transfusion 7. History of HTN - episode of hypotension post pressor support - now stable 8. DM 9. Hypercholesterolemia 10. Left hand cellulitis with MSSA sepsis syndrome and septic shock 11. Hyponatremia 12. Persistent leukocytosis, f/u wound cultures PLAN: 1. Follow up CT chest, abd, pelvis and hip r/o occult abscess 2. Continue Heparin SQ, Plavix, but with caution and use Protonix 40 qd, compression therapy 3. HD per the renal service with ultrafiltration and continue Demadex 40 qd 4. Continue Coreg 3.125 bid with uptitration as tolerated. Restart Statin once LFT recovers 5. Transfusion PRN to maintain Hgb equal or > 8.0 6. Complete antibiotic course per ID Patient plans to follow up with [facility] as outpatient
--- NOTE | 2017-03-25 12:33 | PN ---
Progress Note, Physician History of Present Illness: pulmonary alert,oob-chair -sob at rest,+mcgregor,-cp,-cough - Current Medication List Current Medications: Active Medications Allopurinol (Zyloprim -) 100 mg PO DAILY [facility] Last Admin: 03/24/17 09:14 Dose: 100 mg Carvedilol (Coreg -) 3.125 mg PO BID [facility] Last Admin: 03/25/17 11:22 Dose: 3.125 mg Cholecalciferol (Vitamin D3 -) 2,000 unit PO DAILY [facility] Last Admin: 03/24/17 09:14 Dose: 2,000 unit Heparin Sodium (Porcine) (Heparin -) 5,000 unit SQ BID [facility] Last Admin: 03/25/17 11:25 Dose: 5,000 unit Hydrocortisone (Hytone 1% Cream -) 1 applic TP BID PRN PRN Reason: FOR ITCHING Last Admin: 03/22/17 23:23 Dose: 1 applic IV Flush (Picc Line Flush) 8 ml IVPUSH PRN PRN PRN Reason: Protocol Meropenem 500 mg/ Dextrose 100 mls @ 200 mls/hr IVPB Q12H [facility] Last Admin: 03/25/17 04:15 Dose: 200 mls/hr Insulin Aspart (Novolog Vial Sliding Scale -) 1 vial SQ TIDAC [facility] PRN Reason: Protocol Last Admin: 03/25/17 11:34 Dose: Not Given Lactulose (Cephulac (Oral Use)) 20 gm PO BID [facility] Last Admin: 03/25/17 10:39 Dose: Not Given Ondansetron HCl (Zofran Injection) 4 mg IVPB Q8H PRN PRN Reason: NAUSEA Oxycodone HCl (Roxicodone -) 10 mg PO Q3H PRN PRN Reason: PAIN Last Admin: 03/25/17 10:36 Dose: 10 mg Pantoprazole Sodium (Protonix -) 40 mg PO DAILY [facility] Last Admin: 03/24/17 09:13 Dose: 40 mg Polyethylene Glycol (Miralax (For Daily Use) -) 17 gm PO DAILY [facility] Last Admin: 03/24/17 10:45 Dose: 17 gm Sevelamer Carbonate (Renvela -) 800 mg PO TIDCM [facility] Last Admin: 03/25/17 08:00 Dose: Not Given Torsemide (Demadex -) 40 mg PO DAILY [facility] Last Admin: 03/24/17 09:13 Dose: 40 mg Vitamin E (Vitamin E -) 400 unit PO DAILY [facility] Last Admin: 03/25/17 10:39 Dose: Not Given - Objective Vital Signs: Vital Signs Temperature 98.2 F 03/25/17 06:45 Pulse Rate 80 03/25/17 10:20 Respiratory Rate 18 03/25/17 10:20 Blood Pressure 131/61 03/25/17 10:20 O2 Sat by Pulse Oximetry (%) 98 03/24/17 21:00 Constitutional: Yes: Well Nourished, Calm Eyes: Yes: WNL HENT: Yes: WNL Neck: Yes: WNL Cardiovascular: Yes: Regular Rate and Rhythm, S1, S2 Respiratory: Yes: CTA Bilaterally Gastrointestinal: Yes: Normal Bowel Sounds, Soft Extremities: Yes: WNL Edema: Yes Labs: CBC, BMP 03/25/17 07:00 03/25/17 07:00 INR, PTT INR 1.69 (0.82-1.09) H 03/20/17 10:23 Problem List - Problems (1) Acute renal failure (ARF) Code(s): N17.9 - ACUTE KIDNEY FAILURE, UNSPECIFIED Qualifiers: Acute renal failure type: unspecified Qualified Code(s): N17.9 - Acute kidney failure, unspecified; N17.9 - Acute kidney failure, unspecified; N17.9 - Acute kidney failure, unspecified (2) Anemia Code(s): D64.9 - ANEMIA, UNSPECIFIED Qualifiers: Iron deficiency anemia type: chronic blood loss (3) CAD (coronary artery disease) Code(s): I25.10 - ATHSCL HEART DISEASE OF [place] CORONARY ARTERY W/O ANG PCTRS Qualifiers: Coronary Disease-Associated Artery/Lesion type: [place] artery [place] vs. transplanted heart: [place] heart Associated angina: with unstable angina Qualified Code(s): I25.110 - Atherosclerotic heart disease of [place] coronary artery with unstable angina pectoris; I25.110 - Atherosclerotic heart disease of [place] coronary artery with unstable angina pectoris; I25.110 - Atherosclerotic heart disease of [place] coronary artery with unstable angina pectoris; I25.110 - Atherosclerotic heart disease of [place] coronary artery with unstable angina pectoris (4) Cellulitis Code(s): L03.90 - CELLULITIS, UNSPECIFIED Qualifiers: Site of cellulitis: extremity Site of cellulitis of extremity: upper extremity Laterality: left Qualified Code(s): L03.114 - Cellulitis of left upper limb; L03.114 - Cellulitis of left upper limb (5) GI bleed Code(s): K92.2 - GASTROINTESTINAL HEMORRHAGE, UNSPECIFIED Qualifiers: GI bleed type/associated pathology: unspecified gastrointestinal hemorrhage type Qualified Code(s): K92.2 - Gastrointestinal hemorrhage, unspecified; K92.2 - Gastrointestinal hemorrhage, unspecified (6) Hx of CABG Code(s): Z95.1 - PRESENCE OF AORTOCORONARY BYPASS GRAFT (7) Hyperlipidemia Code(s): E78.5 - HYPERLIPIDEMIA, UNSPECIFIED Qualifiers: Hyperlipidemia type: pure hypercholesterolemia Qualified Code(s): E78.00 - Pure hypercholesterolemia, unspecified; E78.00 - Pure hypercholesterolemia, unspecified; E78.00 - Pure hypercholesterolemia, unspecified; E78.0 - Pure hypercholesterolemia (8) Hypertension Code(s): I10 - ESSENTIAL (PRIMARY) HYPERTENSION Qualifiers: Hypertension type: essential hypertension Qualified Code(s): I10 - Essential (primary) hypertension; I10 - Essential (primary) hypertension; I10 - Essential (primary) hypertension (9) Respiratory arrest before cardiac arrest Code(s): I46.9 - CARDIAC ARREST, CAUSE UNSPECIFIED R09.2 - RESPIRATORY ARREST Assessment/Plan A/P s/p Cardiopulmonary Arrest Metabolic/Lactic Acidosis Acute Kidney Injury requiring HD +Troponins/CAD/r/o ACS/NSTEMI Acute on Chronic LV Systolic/Diastolic Heart Failure Staph Bacteremia HTN DM Recent GI Bleed - HD per renal with ultrafiltration - continue antibiotics per ID - elevate legs - torsemide - monitor urine output, creatinine - daily weights - rehab/PT DR ANG
--- NOTE | 2017-03-25 13:04 | PN ---
Progress Note (short form) - Note Progress Note: Renal Follow up for JOE Pt seen and examined in Tele s/p dialysis this am with 3.5L UF no acute complaints denies any SOB at rest continues to have discomfort in his legs b/c of the swelling making urine Vital Signs Temperature 98.2 F 03/25/17 06:45 Pulse Rate 80 03/25/17 10:20 Respiratory Rate 18 03/25/17 10:20 Blood Pressure 131/61 03/25/17 10:20 O2 Sat by Pulse Oximetry (%) 98 03/24/17 21:00 Intake & Output 03/22/17 03/23/17 03/24/17 03/25/17 23:59 23:59 23:59 23:59 Intake Total 1910 828 670 400 Output Total 710 650 450 Balance 1200 828 20 -50 Weight 262 lb 2 oz 260 lb 4 oz Gen: NAD CVS: RRR Lungs: CTA Abd: soft NT/ND Ext: No LE edema, left wrist and hand swollen, eyrthema improved CBC, BMP 03/25/17 07:00 03/25/17 07:00 Current Medications Allopurinol (Zyloprim -) 100 mg PO DAILY [facility] Last Admin: 03/24/17 09:14 Dose: 100 mg Carvedilol (Coreg -) 3.125 mg PO BID [facility] Last Admin: 03/25/17 11:22 Dose: 3.125 mg Cholecalciferol (Vitamin D3 -) 2,000 unit PO DAILY [facility] Last Admin: 03/24/17 09:14 Dose: 2,000 unit Heparin Sodium (Porcine) (Heparin -) 5,000 unit SQ BID [facility] Last Admin: 03/25/17 11:25 Dose: 5,000 unit Hydrocortisone (Hytone 1% Cream -) 1 applic TP BID PRN PRN Reason: FOR ITCHING Last Admin: 03/22/17 23:23 Dose: 1 applic IV Flush (Picc Line Flush) 8 ml IVPUSH PRN PRN PRN Reason: Protocol Meropenem 500 mg/ Dextrose 100 mls @ 200 mls/hr IVPB Q12H [facility] Last Admin: 03/25/17 04:15 Dose: 200 mls/hr Insulin Aspart (Novolog Vial Sliding Scale -) 1 vial SQ TIDAC [facility] PRN Reason: Protocol Last Admin: 03/25/17 11:34 Dose: Not Given Lactulose (Cephulac (Oral Use)) 20 gm PO BID [facility] Last Admin: 03/25/17 10:39 Dose: Not Given Ondansetron HCl (Zofran Injection) 4 mg IVPB Q8H PRN PRN Reason: NAUSEA Oxycodone HCl (Roxicodone -) 10 mg PO Q3H PRN PRN Reason: PAIN Last Admin: 03/25/17 10:36 Dose: 10 mg Pantoprazole Sodium (Protonix -) 40 mg PO DAILY [facility] Last Admin: 03/24/17 09:13 Dose: 40 mg Polyethylene Glycol (Miralax (For Daily Use) -) 17 gm PO DAILY [facility] Last Admin: 03/24/17 10:45 Dose: 17 gm Sevelamer Carbonate (Renvela -) 800 mg PO TIDCM [facility] Last Admin: 03/25/17 08:00 Dose: Not Given Torsemide (Demadex -) 40 mg PO DAILY [facility] Last Admin: 03/24/17 09:13 Dose: 40 mg Vitamin E (Vitamin E -) 400 unit PO DAILY [facility] Last Admin: 03/25/17 10:39 Dose: Not Given A/P 71 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 #Oliguric Renal Failure with volume overload Tolerated dialysis well today BUN/Cr slope appears improved with corresponds to improved renal function Continue torsemide daily fluid restriction next HD planned for Thursday dose all meds for intermittent HD at this time Aubrey Acharya DO Problem List - Problems (1) Cellulitis Code(s): L03.90 - CELLULITIS, UNSPECIFIED Qualifiers: Site of cellulitis: extremity Site of cellulitis of extremity: upper extremity Laterality: left Qualified Code(s): L03.114 - Cellulitis of left upper limb; L03.114 - Cellulitis of left upper limb (2) Acute renal failure (ARF) Code(s): N17.9 - ACUTE KIDNEY FAILURE, UNSPECIFIED Qualifiers: Acute renal failure type: unspecified Qualified Code(s): N17.9 - Acute kidney failure, unspecified; N17.9 - Acute kidney failure, unspecified; N17.9 - Acute kidney failure, unspecified (3) CAD (coronary artery disease) Code(s): I25.10 - ATHSCL HEART DISEASE OF [place] CORONARY ARTERY W/O ANG PCTRS Qualifiers: Coronary Disease-Associated Artery/Lesion type: [place] artery [place] vs. transplanted heart: [place] heart Associated angina: with unstable angina Qualified Code(s): I25.110 - Atherosclerotic heart disease of [place] coronary artery with unstable angina pectoris; I25.110 - Atherosclerotic heart disease of [place] coronary artery with unstable angina pectoris; I25.110 - Atherosclerotic heart disease of [place] coronary artery with unstable angina pectoris; I25.110 - Atherosclerotic heart disease of [place] coronary artery with unstable angina pectoris (4) Hypertension Code(s): I10 - ESSENTIAL (PRIMARY) HYPERTENSION Qualifiers: Hypertension type: essential hypertension Qualified Code(s): I10 - Essential (primary) hypertension; I10 - Essential (primary) hypertension; I10 - Essential (primary) hypertension (5) Gout Code(s): M10.9 - GOUT, UNSPECIFIED (6) Leukocytosis Code(s): D72.829 - ELEVATED WHITE BLOOD CELL COUNT, UNSPECIFIED
[2017-03-25] MEDS: ALLOPURINOL 100 MG TABLET (FP) PO SCH (15:12)
[2017-03-25] MEDS: CHOLECALCIFEROL (VITAMIN D3) 1,000 UNIT TABLET (FP) PO SCH (15:12)
[2017-03-25] MEDS: PANTOPRAZOLE 40 MG TABLET (FP) PO SCH (15:12)
[2017-03-25] MEDS: TORSEMIDE 20 MG TABLET (FP) PO SCH (15:12)
[2017-03-25] MEDS ORDERED: VANCOMYCIN 1,250 MG in DEXTROSE 5%-WATER - 250 ML IVPB ONE (16:54)
--- NOTE | 2017-03-25 17:13 | PN ---
Progress Note, Physician History of Present Illness: clinically patient looks stable wbc continues to increase patient got ct scan - Current Medication List Current Medications: Active Medications Allopurinol (Zyloprim -) 100 mg PO DAILY [facility] Last Admin: 03/25/17 15:12 Dose: 100 mg Carvedilol (Coreg -) 3.125 mg PO BID [facility] Last Admin: 03/25/17 11:22 Dose: 3.125 mg Cholecalciferol (Vitamin D3 -) 2,000 unit PO DAILY [facility] Last Admin: 03/25/17 15:12 Dose: 2,000 unit Heparin Sodium (Porcine) (Heparin -) 5,000 unit SQ BID [facility] Last Admin: 03/25/17 11:25 Dose: 5,000 unit Hydrocortisone (Hytone 1% Cream -) 1 applic TP BID PRN PRN Reason: FOR ITCHING Last Admin: 03/22/17 23:23 Dose: 1 applic IV Flush (Picc Line Flush) 8 ml IVPUSH PRN PRN PRN Reason: Protocol Meropenem 500 mg/ Dextrose 100 mls @ 200 mls/hr IVPB Q12H [facility] Last Admin: 03/25/17 15:13 Dose: 200 mls/hr Vancomycin HCl 1,250 mg/ (Dextrose) 250 mls @ 250 mls/hr IVPB ONCE ONE PRN Reason: Protocol Stop: 03/25/17 17:53 Insulin Aspart (Novolog Vial Sliding Scale -) 1 vial SQ TIDAC [facility] PRN Reason: Protocol Last Admin: 03/25/17 11:34 Dose: Not Given Lactulose (Cephulac (Oral Use)) 20 gm PO BID [facility] Last Admin: 03/25/17 10:39 Dose: Not Given Ondansetron HCl (Zofran Injection) 4 mg IVPB Q8H PRN PRN Reason: NAUSEA Oxycodone HCl (Roxicodone -) 10 mg PO Q3H PRN PRN Reason: PAIN Last Admin: 03/25/17 13:41 Dose: 10 mg Pantoprazole Sodium (Protonix -) 40 mg PO DAILY [facility] Last Admin: 03/25/17 15:12 Dose: 40 mg Polyethylene Glycol (Miralax (For Daily Use) -) 17 gm PO DAILY [facility] Last Admin: 03/25/17 10:00 Dose: Not Given Sevelamer Carbonate (Renvela -) 800 mg PO TIDCM [facility] Last Admin: 03/25/17 15:14 Dose: 800 mg Torsemide (Demadex -) 40 mg PO DAILY [facility] Last Admin: 03/25/17 15:12 Dose: 40 mg Vitamin E (Vitamin E -) 400 unit PO DAILY [facility] Last Admin: 03/25/17 10:39 Dose: Not Given - Objective Vital Signs: Vital Signs Temperature 97.7 F 03/25/17 14:09 Pulse Rate 86 03/25/17 14:09 Respiratory Rate 18 03/25/17 14:09 Blood Pressure 121/56 03/25/17 14:09 O2 Sat by Pulse Oximetry (%) 98 03/25/17 10:00 Constitutional: Yes: No Distress, Calm Cardiovascular: Yes: Regular Rate and Rhythm Respiratory: Yes: Regular, CTA Bilaterally Gastrointestinal: Yes: Normal Bowel Sounds, Soft Musculoskeletal: Yes: Other Extremities: Yes: Other Neurological: Yes: Alert, Oriented Psychiatric: Yes: Alert, Oriented Labs: CBC, BMP 03/25/17 07:00 03/25/17 07:00 INR, PTT INR 1.69 (0.82-1.09) H 03/20/17 10:23 - ....Imaging Cat Scan: Report Reviewed, Image Reviewed Assessment/Plan sepsis septic left wrist joint gm positive bacteremia fever tenderness leukocytosis nstemi increased bilrubin looked at the ct scan report patients wbc is going higher case scenarios the hematoma in the psoas muscle might be getting infected second patient might be bleeding third the gall bladder is the cause there might be some infection at the permacath plan i am going to give one dose of vanco continue meropenam consider draining the gall bladder and see if the wbc goes down or patient might need his permacath removed i have ordered blood cx from the central line
[2017-03-26] MEDS ORDERED: PT OWN MED DRAWER 7, Y5N ONE ×3 (04:12→16:24)
[2017-03-26] MEDS: MEROPENEM 500 MG in DEXTROSE 5%-WATER - 100 ML IVPB SCH ×2 (04:14→16:25)
[2017-03-26] MEDS: oxyCODONE HCL 5 MG TABLET PO PRN ×6 (04:14→21:57)
[2017-03-26] MEDS ORDERED: INSULIN (NOVOLOG) ASPART 100 UNITS/ML 10ML VIAL ONE (05:30)
[2017-03-26] MEDS: INSULIN SLIDING SCALE (NOVOLOG) 1 VIAL SQ SCH ×3 (06:39→17:09)
[2017-03-26 07:20] LABS: MCH 28.8 pg (25.7-33.7); MCHC 33.6 g/dl (32.0-35.9); MEAN CELL VOLUME 85.9 fl (80-96); MEAN PLT VOLUME 8.3 fl (7.5-11.1); PLATELET COUNT 260 K/MM3 (134-434); WHITE BLOOD COUNT 21.8 K/mm3 (4.0-10.0)
[2017-03-26 08:08] LABS: ALBUMIN 1.3 g/dl (3.4-5.0); ALK PHOS 86 U/L (45-117); ANION GAP 12 (8-16); BILIRUBIN,TOTAL 4.4 mg/dL (0.2-1.0); CALCIUM 8.5 mg/dL (8.5-10.1); CO2 28 mmol/L (21-32); CREATININE 3.9 mg/dL (0.7-1.3); GLUCOSE,RANDOM 163 mg/dL (74-106); MAGNESIUM 2.1 mg/dL (1.8-2.4); PHOSPHOROUS 4.4 mg/dL (2.5-4.9); SGOT/AST 89 U/L (15-37); SGPT/ALT 189 U/L (12-78); TOT PROT 5.3 g/dl (6.4-8.2)
[2017-03-26] MEDS: SEVELAMER CARBONATE 800 MG TAB (FP) PO SCH ×3 (08:35→17:09)
--- NOTE | 2017-03-26 08:55 | PN ---
Progress Note (short form) - Note Progress Note: With Psoas collection and Hx MSSA and horrible left hip chilo n and rising WBC in spite of 4 weeks of antibiotics I believe attempt should be made for IR drainage of the muscle. MSSA sapna prone to Psoas area and he has had over 4 weeks of Antibiotics. On Exam: Vital Signs Temp 98.7 F 03/26/17 06:00 Pulse 80 03/26/17 06:00 Resp 20 03/26/17 06:00 BP 121/68 03/26/17 06:00 Pulse Ox 96 03/25/17 21:00 Intake & Output 03/25/17 03/25/17 03/26/17 11:59 23:59 11:59 Intake Total 400 470 100 Output Total 450 600 350 Balance -50 -130 -250 Weight 262 lb Intake: IVPB 400 350 100 Oral 120 Output: Urine 450 600 350 Void 450 600 350 Other: Voiding Method Urinal Urinal Bowel Movement Yes Yes # Bowel Movements 1 1 Weight Measurement Method Standing Scale Lethargic Chest: Decreased breath sounds Abd Distended but nontender Ext: 3-4 + edema Abnormal Lab Results 03/25/17 03/25/17 03/26/17 07:00 07:00 05:35 WBC 19.2 H 21.8 H RBC 2.74 L 2.50 L Hgb 7.9 L 7.2 L Hct 23.4 L 21.5 L RDW 22.6 H 23.0 H Sodium 129 L Potassium 3.4 L Chloride 86 L BUN 46 H D Creatinine 5.0 H Random Glucose 148 H Calcium 8.0 L Phosphorus 5.2 H Total Bilirubin AST ALT Total Protein Albumin 03/26/17 05:35 WBC RBC Hgb Hct RDW Sodium 129 L Potassium 3.4 L Chloride 89 L BUN 35 H D Creatinine 3.9 H D Random Glucose 163 H Calcium Phosphorus Total Bilirubin 4.4 H D AST 89 H D ALT 189 H D Hx Respiratory Arrest umin 1.3 L Imp: MSSA sepsis due to left hand cellulitis Acute renal failure Rising WBC Collection left Psoas with worsening pain CABG X2 Plan: F/U lab IR referral. NIDDM Problem List - Problems (1) Cellulitis Code(s): L03.90 - CELLULITIS, UNSPECIFIED Qualifiers: Site of cellulitis: extremity Site of cellulitis of extremity: upper extremity Laterality: left Qualified Code(s): L03.114 - Cellulitis of left upper limb; L03.114 - Cellulitis of left upper limb (2) GI bleed Code(s): K92.2 - GASTROINTESTINAL HEMORRHAGE, UNSPECIFIED Qualifiers: GI bleed type/associated pathology: unspecified gastrointestinal hemorrhage type Qualified Code(s): K92.2 - Gastrointestinal hemorrhage, unspecified; K92.2 - Gastrointestinal hemorrhage, unspecified (3) Acute renal failure (ARF) Code(s): N17.9 - ACUTE KIDNEY FAILURE, UNSPECIFIED Qualifiers: Acute renal failure type: unspecified Qualified Code(s): N17.9 - Acute kidney failure, unspecified; N17.9 - Acute kidney failure, unspecified; N17.9 - Acute kidney failure, unspecified (4) CAD (coronary artery disease) Code(s): I25.10 - ATHSCL HEART DISEASE OF [place] CORONARY ARTERY W/O ANG PCTRS Qualifiers: Coronary Disease-Associated Artery/Lesion type: [place] artery [place] vs. transplanted heart: [place] heart Associated angina: with unstable angina Qualified Code(s): I25.110 - Atherosclerotic heart disease of [place] coronary artery with unstable angina pectoris; I25.110 - Atherosclerotic heart disease of [place] coronary artery with unstable angina pectoris; I25.110 - Atherosclerotic heart disease of [place] coronary artery with unstable angina pectoris; I25.110 - Atherosclerotic heart disease of [place] coronary artery with unstable angina pectoris (5) Gout Code(s): M10.9 - GOUT, UNSPECIFIED (6) Hypertension Code(s): I10 - ESSENTIAL (PRIMARY) HYPERTENSION Qualifiers: Hypertension type: essential hypertension Qualified Code(s): I10 - Essential (primary) hypertension; I10 - Essential (primary) hypertension; I10 - Essential (primary) hypertension (7) Anemia Code(s): D64.9 - ANEMIA, UNSPECIFIED Qualifiers: Iron deficiency anemia type: chronic blood loss (8) Leukocytosis Code(s): D72.829 - ELEVATED WHITE BLOOD CELL COUNT, UNSPECIFIED (9) Respiratory arrest before cardiac arrest Code(s): I46.9 - CARDIAC ARREST, CAUSE UNSPECIFIED R09.2 - RESPIRATORY ARREST (10) Respiratory arrest Code(s): R09.2 - RESPIRATORY ARREST
--- NOTE | 2017-03-26 09:40 | PN ---
Progress Note, Physician Chief Complaint: Events noted Possible left Psoas fluid collection Awake and alert sitting in chair, but complains of intermittent pain in left buttock region History of Present Illness: Patient was seen and examined. Chart was reviewed Denies chest pain, shortness of breath or palpitations As outlined above - Current Medication List Current Medications: Active Medications Allopurinol (Zyloprim -) 100 mg PO DAILY [facility] Last Admin: 03/25/17 15:12 Dose: 100 mg Carvedilol (Coreg -) 3.125 mg PO BID [facility] Last Admin: 03/25/17 21:27 Dose: 3.125 mg Cholecalciferol (Vitamin D3 -) 2,000 unit PO DAILY [facility] Last Admin: 03/25/17 15:12 Dose: 2,000 unit Heparin Sodium (Porcine) (Heparin -) 5,000 unit SQ BID [facility] Last Admin: 03/25/17 21:27 Dose: 5,000 unit Hydrocortisone (Hytone 1% Cream -) 1 applic TP BID PRN PRN Reason: FOR ITCHING Last Admin: 03/22/17 23:23 Dose: 1 applic IV Flush (Picc Line Flush) 8 ml IVPUSH PRN PRN PRN Reason: Protocol Meropenem 500 mg/ Dextrose 100 mls @ 200 mls/hr IVPB Q12H [facility] Last Admin: 03/26/17 04:14 Dose: 200 mls/hr Insulin Aspart (Novolog Vial Sliding Scale -) 1 vial SQ TIDAC [facility] PRN Reason: Protocol Last Admin: 03/26/17 06:39 Dose: 2 units Lactulose (Cephulac (Oral Use)) 20 gm PO BID [facility] Last Admin: 03/25/17 21:27 Dose: Not Given Ondansetron HCl (Zofran Injection) 4 mg IVPB Q8H PRN PRN Reason: NAUSEA Oxycodone HCl (Roxicodone -) 10 mg PO Q3H PRN PRN Reason: PAIN Last Admin: 03/26/17 08:35 Dose: 10 mg Pantoprazole Sodium (Protonix -) 40 mg PO DAILY [facility] Last Admin: 03/25/17 15:12 Dose: 40 mg Polyethylene Glycol (Miralax (For Daily Use) -) 17 gm PO DAILY [facility] Last Admin: 03/25/17 10:00 Dose: Not Given Sevelamer Carbonate (Renvela -) 800 mg PO TIDCM [facility] Last Admin: 03/26/17 08:35 Dose: 800 mg Torsemide (Demadex -) 40 mg PO DAILY [facility] Last Admin: 03/25/17 15:12 Dose: 40 mg Vitamin E (Vitamin E -) 400 unit PO DAILY [facility] Last Admin: 03/25/17 10:39 Dose: Not Given - Objective Vital Signs: Vital Signs Temperature 98.7 F 03/26/17 06:00 Pulse Rate 80 03/26/17 06:00 Respiratory Rate 20 03/26/17 06:00 Blood Pressure 121/68 03/26/17 06:00 O2 Sat by Pulse Oximetry (%) 96 03/25/17 21:00 Neck: Yes: Supple Cardiovascular: Yes: Regular Rate and Rhythm, S1, S2 Respiratory: Yes: Diminished Gastrointestinal: Yes: Normal Bowel Sounds, Soft. No: Tenderness Edema: Yes Additional Findings/Remarks: - Review of Systems Constitutional: no symptoms reported Respiratory: denies: Cough denies: Sputum Production Cardiovascular: denies: chest pain, SOB, palpitations Gastrointestinal: denies Nausea, Vomiting, Diarrhea, Constipation or Abdominal Pain Genitourinary: No symptoms reported Musculoskeletal: No symptoms reported Endocrine: No symptoms reported Labs: CBC, BMP 03/26/17 05:35 03/26/17 05:35 Problem List - Problems (1) Abnormal liver enzymes Code(s): R74.8 - ABNORMAL LEVELS OF OTHER SERUM ENZYMES (2) Acute renal failure (ARF) Code(s): N17.9 - ACUTE KIDNEY FAILURE, UNSPECIFIED Qualifiers: Acute renal failure type: unspecified Qualified Code(s): N17.9 - Acute kidney failure, unspecified; N17.9 - Acute kidney failure, unspecified; N17.9 - Acute kidney failure, unspecified (3) Anemia Code(s): D64.9 - ANEMIA, UNSPECIFIED Qualifiers: Iron deficiency anemia type: chronic blood loss (4) CAD (coronary artery disease) Code(s): I25.10 - ATHSCL HEART DISEASE OF [place] CORONARY ARTERY W/O ANG PCTRS Qualifiers: Coronary Disease-Associated Artery/Lesion type: [place] artery [place] vs. transplanted heart: [place] heart Associated angina: with unstable angina Qualified Code(s): I25.110 - Atherosclerotic heart disease of [place] coronary artery with unstable angina pectoris; I25.110 - Atherosclerotic heart disease of [place] coronary artery with unstable angina pectoris; I25.110 - Atherosclerotic heart disease of [place] coronary artery with unstable angina pectoris; I25.110 - Atherosclerotic heart disease of [place] coronary artery with unstable angina pectoris (5) Cellulitis Code(s): L03.90 - CELLULITIS, UNSPECIFIED Qualifiers: Site of cellulitis: extremity Site of cellulitis of extremity: upper extremity Laterality: left Qualified Code(s): L03.114 - Cellulitis of left upper limb; L03.114 - Cellulitis of left upper limb (6) Hyperlipidemia Code(s): E78.5 - HYPERLIPIDEMIA, UNSPECIFIED Qualifiers: Hyperlipidemia type: pure hypercholesterolemia Qualified Code(s): E78.00 - Pure hypercholesterolemia, unspecified; E78.00 - Pure hypercholesterolemia, unspecified; E78.00 - Pure hypercholesterolemia, unspecified; E78.0 - Pure hypercholesterolemia (7) Hypertension Code(s): I10 - ESSENTIAL (PRIMARY) HYPERTENSION Qualifiers: Hypertension type: essential hypertension Qualified Code(s): I10 - Essential (primary) hypertension; I10 - Essential (primary) hypertension; I10 - Essential (primary) hypertension (8) MSSA (methicillin susceptible Staphylococcus aureus) infection Code(s): A49.01 - METHICILLIN SUSCEP STAPH INFECTION, UNSP SITE (9) Respiratory arrest before cardiac arrest Code(s): I46.9 - CARDIAC ARREST, CAUSE UNSPECIFIED R09.2 - RESPIRATORY ARREST (10) Hx of CABG Code(s): Z95.1 - PRESENCE OF AORTOCORONARY BYPASS GRAFT Assessment/Plan 1. Cardiopulmonary arrest with PEA (Pulseless Electrical Activity) post resuscitation and post respiratory failure 2. Abnormal EKG, unclear underlying atrial rhythm now resolved most likely related profound metabolic/lactic acidosis 3. CAD post FL/CABG angina pectoris with evidence of demand ischemic injury in context of acute pulmonary edema - resolved 4. Moderate LV systolic dysfunction with acute class III-IV NYHA classification LV failure 5. Acute renal failure on HD 6. Anemia, recent GI bleed related to peptic ulcer disease, post transfusion 7. History of HTN - episode of hypotension post pressor support - now stable 8. DM 9. Hypercholesterolemia 10. Cellulitis with recent MSSA sepsis syndrome with septic shock and now with possible left psoas collection 11. Hyponatremia 12. Abnormal LFTs PLAN: 1. Await IR evaluation and to see if this is drainable 2. Continue Heparin SQ 3. HD per the renal service with ultrafiltration and continue Demadex 4. Continue Coreg with uptitration as tolerated. Restart Statin once LFT recovers 5. Transfusion PRN to maintain Hgb equal or > 8.0 6. Complete antibiotic course per LISBETH Nogueira MD
[2017-03-26 10:25] LABS: INR 1.55 (0.82-1.09); PROTHROMBIN TIME (PATIENT) 17.2 SEC (9.98-11.88)
[2017-03-26] MEDS: VITAMIN E 400 INTERNATIONAL-UNITS CAPSULE (FP) PO SCH (10:30)
[2017-03-26] MEDS: ALLOPURINOL 100 MG TABLET (FP) PO SCH (10:36)
[2017-03-26] MEDS: CARVEDILOL 3.125 MG TABLET (FP) PO SCH ×2 (10:36→21:58)
[2017-03-26] MEDS: PANTOPRAZOLE 40 MG TABLET (FP) PO SCH (10:36)
[2017-03-26] MEDS: CHOLECALCIFEROL (VITAMIN D3) 1,000 UNIT TABLET (FP) PO SCH (10:36)
[2017-03-26] MEDS: TORSEMIDE 20 MG TABLET (FP) PO SCH (10:36)
[2017-03-26] MEDS: HEPARIN NA (PORCINE) 5,000 UNITS/ML 1ML VIAL SQ SCH ×2 (10:37→21:57)
[2017-03-26] MEDS: LACTULOSE 20 GM/30 ML UDC (FOR ORAL USE ONLY) PO SCH ×2 (10:37→21:55)
[2017-03-26] MEDS: POLYETHYLENE GLYCOL 3350 119 GM BTL PO SCH (10:37)
--- NOTE | 2017-03-26 12:12 | PN ---
Progress Note (short form) - Note Progress Note: PULMONARY Denies shortness of breath, chest pain. CT A/P yesterday showing left ileopsoas hematoma, bilateral effusions with atelectasis. Last Vital Signs Temp Pulse Resp BP Pulse Ox 98.7 F 80 20 121/68 96 03/26/17 06:00 03/26/17 06:00 03/26/17 06:00 03/26/17 06:00 03/25/17 21:00 Gen: NAD in chair Heart: RRR Lung: decreased breath sounds at the bases Abd: soft, nontender Ext: + edema CBC, BMP 03/26/17 05:35 03/26/17 05:35 Active Medications Allopurinol (Zyloprim -) 100 mg PO DAILY [facility] Last Admin: 03/26/17 10:36 Dose: 100 mg Carvedilol (Coreg -) 3.125 mg PO BID [facility] Last Admin: 03/26/17 10:36 Dose: 3.125 mg Cholecalciferol (Vitamin D3 -) 2,000 unit PO DAILY [facility] Last Admin: 03/26/17 10:36 Dose: 2,000 unit Heparin Sodium (Porcine) (Heparin -) 5,000 unit SQ BID [facility] Last Admin: 03/26/17 10:37 Dose: Not Given Hydrocortisone (Hytone 1% Cream -) 1 applic TP BID PRN PRN Reason: FOR ITCHING Last Admin: 03/22/17 23:23 Dose: 1 applic IV Flush (Picc Line Flush) 8 ml IVPUSH PRN PRN PRN Reason: Protocol Meropenem 500 mg/ Dextrose 100 mls @ 200 mls/hr IVPB Q12H [facility] Last Admin: 03/26/17 04:14 Dose: 200 mls/hr Insulin Aspart (Novolog Vial Sliding Scale -) 1 vial SQ TIDAC [facility] PRN Reason: Protocol Last Admin: 03/26/17 06:39 Dose: 2 units Lactulose (Cephulac (Oral Use)) 20 gm PO BID [facility] Last Admin: 03/26/17 10:37 Dose: Not Given Ondansetron HCl (Zofran Injection) 4 mg IVPB Q8H PRN PRN Reason: NAUSEA Oxycodone HCl (Roxicodone -) 10 mg PO Q3H PRN PRN Reason: PAIN Last Admin: 03/26/17 08:35 Dose: 10 mg Pantoprazole Sodium (Protonix -) 40 mg PO DAILY [facility] Last Admin: 03/26/17 10:36 Dose: 40 mg Polyethylene Glycol (Miralax (For Daily Use) -) 17 gm PO DAILY [facility] Last Admin: 03/26/17 10:37 Dose: Not Given Sevelamer Carbonate (Renvela -) 800 mg PO TIDCM [facility] Last Admin: 03/26/17 08:35 Dose: 800 mg Torsemide (Demadex -) 40 mg PO DAILY [facility] Last Admin: 03/26/17 10:36 Dose: 40 mg Vitamin E (Vitamin E -) 400 unit PO DAILY [facility] Last Admin: 03/26/17 10:30 Dose: Not Given A/P s/p Cardiopulmonary Arrest Metabolic/Lactic Acidosis Acute Kidney Injury requiring HD +Troponins/CAD/r/o ACS/NSTEMI Acute on Chronic LV Systolic/Diastolic Heart Failure Staph Bacteremia HTN DM Recent GI Bleed - HD per renal with ultrafiltration - continue antibiotics per ID - d/w IR possible drainage of ileopsoas collection - elevate legs - torsemide - monitor urine output, creatinine - daily weights - rehab/PT
[2017-03-26 13:15] LABS: TOTAL CELLS COUNTED 100
[2017-03-26 13:16] LABS: ANISOCYTOSIS 3+; MICROCYTOSIS 1+
--- NOTE | 2017-03-26 14:39 | PN ---
Progress Note (short form) - Note Progress Note: Renal Follow up for JOE Pt seen and examined in Tele awake and alert no acute complaints no sob, chest pain making urine s/p dialysis yesterday Vital Signs Temperature 97.8 F 03/26/17 13:15 Pulse Rate 77 03/26/17 13:15 Respiratory Rate 16 03/26/17 13:15 Blood Pressure 114/60 03/26/17 13:15 O2 Sat by Pulse Oximetry (%) 99 03/26/17 10:00 Intake & Output 03/23/17 03/24/17 03/25/17 03/26/17 23:59 23:59 23:59 23:59 Intake Total 828 670 870 600 Output Total 650 1050 800 Balance 828 20 -180 -200 Weight 262 lb 2 oz 260 lb 4 oz 262 lb Gen: NAD CVS: RRR Lungs: CTA Abd: soft NT/ND Ext: No LE edema, left wrist and hand swollen, eyrthema improved CBC, BMP 03/26/17 05:35 03/26/17 05:35 Current Medications Allopurinol (Zyloprim -) 100 mg PO DAILY [facility] Last Admin: 03/26/17 10:36 Dose: 100 mg Carvedilol (Coreg -) 3.125 mg PO BID [facility] Last Admin: 03/26/17 10:36 Dose: 3.125 mg Cholecalciferol (Vitamin D3 -) 2,000 unit PO DAILY [facility] Last Admin: 03/26/17 10:36 Dose: 2,000 unit Heparin Sodium (Porcine) (Heparin -) 5,000 unit SQ BID [facility] Last Admin: 03/26/17 10:37 Dose: Not Given Hydrocortisone (Hytone 1% Cream -) 1 applic TP BID PRN PRN Reason: FOR ITCHING Last Admin: 03/22/17 23:23 Dose: 1 applic IV Flush (Picc Line Flush) 8 ml IVPUSH PRN PRN PRN Reason: Protocol Meropenem 500 mg/ Dextrose 100 mls @ 200 mls/hr IVPB Q12H [facility] Last Admin: 03/26/17 04:14 Dose: 200 mls/hr Insulin Aspart (Novolog Vial Sliding Scale -) 1 vial SQ TIDAC PAULINA PRN Reason: Protocol Last Admin: 03/26/17 12:20 Dose: 4 units Lactulose (Cephulac (Oral Use)) 20 gm PO BID [facility] Last Admin: 03/26/17 10:37 Dose: Not Given Ondansetron HCl (Zofran Injection) 4 mg IVPB Q8H PRN PRN Reason: NAUSEA Oxycodone HCl (Roxicodone -) 10 mg PO Q3H PRN PRN Reason: PAIN Last Admin: 03/26/17 12:19 Dose: 10 mg Pantoprazole Sodium (Protonix -) 40 mg PO DAILY [facility] Last Admin: 03/26/17 10:36 Dose: 40 mg Polyethylene Glycol (Miralax (For Daily Use) -) 17 gm PO DAILY [facility] Last Admin: 03/26/17 10:37 Dose: Not Given Sevelamer Carbonate (Renvela -) 800 mg PO TIDCM [facility] Last Admin: 03/26/17 12:19 Dose: 800 mg Torsemide (Demadex -) 40 mg PO DAILY [facility] Last Admin: 03/26/17 10:36 Dose: 40 mg Vitamin E (Vitamin E -) 400 unit PO DAILY [facility] Last Admin: 03/26/17 10:30 Dose: Not Given A/P 71 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 #Oliguric Renal Failure with volume overload Renal function appears to be improving, increased urine output and BUN/Cr are trending lower continue Torsemide will plan tenative dialysis tomorrow continue fluid restriction for now Trend BUN/Cr for now #Anemia Hgb is 7.2 today if Hgb remains less then 7.5 will likely need transfusion with HD Aubrey Acharya DO Problem List - Problems (1) Cellulitis Code(s): L03.90 - CELLULITIS, UNSPECIFIED Qualifiers: Site of cellulitis: extremity Site of cellulitis of extremity: upper extremity Laterality: left Qualified Code(s): L03.114 - Cellulitis of left upper limb; L03.114 - Cellulitis of left upper limb (2) Acute renal failure (ARF) Code(s): N17.9 - ACUTE KIDNEY FAILURE, UNSPECIFIED Qualifiers: Acute renal failure type: unspecified Qualified Code(s): N17.9 - Acute kidney failure, unspecified; N17.9 - Acute kidney failure, unspecified; N17.9 - Acute kidney failure, unspecified (3) CAD (coronary artery disease) Code(s): I25.10 - ATHSCL HEART DISEASE OF [place] CORONARY ARTERY W/O ANG PCTRS Qualifiers: Coronary Disease-Associated Artery/Lesion type: [place] artery [place] vs. transplanted heart: [place] heart Associated angina: with unstable angina Qualified Code(s): I25.110 - Atherosclerotic heart disease of [place] coronary artery with unstable angina pectoris; I25.110 - Atherosclerotic heart disease of [place] coronary artery with unstable angina pectoris; I25.110 - Atherosclerotic heart disease of [place] coronary artery with unstable angina pectoris; I25.110 - Atherosclerotic heart disease of [place] coronary artery with unstable angina pectoris (4) Hypertension Code(s): I10 - ESSENTIAL (PRIMARY) HYPERTENSION Qualifiers: Hypertension type: essential hypertension Qualified Code(s): I10 - Essential (primary) hypertension; I10 - Essential (primary) hypertension; I10 - Essential (primary) hypertension (5) Gout Code(s): M10.9 - GOUT, UNSPECIFIED (6) Leukocytosis Code(s): D72.829 - ELEVATED WHITE BLOOD CELL COUNT, UNSPECIFIED
--- NOTE | 2017-03-26 15:08 | PN ---
Progress Note, Physician History of Present Illness: clinically patient looks stable wbc continues to increase patient with drainage of hematoma only blood came out - Current Medication List Current Medications: Active Medications Allopurinol (Zyloprim -) 100 mg PO DAILY [facility] Last Admin: 03/26/17 10:36 Dose: 100 mg Carvedilol (Coreg -) 3.125 mg PO BID [facility] Last Admin: 03/26/17 10:36 Dose: 3.125 mg Cholecalciferol (Vitamin D3 -) 2,000 unit PO DAILY [facility] Last Admin: 03/26/17 10:36 Dose: 2,000 unit Heparin Sodium (Porcine) (Heparin -) 5,000 unit SQ BID [facility] Last Admin: 03/26/17 10:37 Dose: Not Given Hydrocortisone (Hytone 1% Cream -) 1 applic TP BID PRN PRN Reason: FOR ITCHING Last Admin: 03/22/17 23:23 Dose: 1 applic IV Flush (Picc Line Flush) 8 ml IVPUSH PRN PRN PRN Reason: Protocol Meropenem 500 mg/ Dextrose 100 mls @ 200 mls/hr IVPB Q12H [facility] Last Admin: 03/26/17 04:14 Dose: 200 mls/hr Insulin Aspart (Novolog Vial Sliding Scale -) 1 vial SQ TIDAC PAULINA PRN Reason: Protocol Last Admin: 03/26/17 12:20 Dose: 4 units Lactulose (Cephulac (Oral Use)) 20 gm PO BID [facility] Last Admin: 03/26/17 10:37 Dose: Not Given Ondansetron HCl (Zofran Injection) 4 mg IVPB Q8H PRN PRN Reason: NAUSEA Oxycodone HCl (Roxicodone -) 10 mg PO Q3H PRN PRN Reason: PAIN Last Admin: 03/26/17 12:19 Dose: 10 mg Pantoprazole Sodium (Protonix -) 40 mg PO DAILY [facility] Last Admin: 03/26/17 10:36 Dose: 40 mg Polyethylene Glycol (Miralax (For Daily Use) -) 17 gm PO DAILY [facility] Last Admin: 03/26/17 10:37 Dose: Not Given Sevelamer Carbonate (Renvela -) 800 mg PO TIDCM [facility] Last Admin: 03/26/17 12:19 Dose: 800 mg Torsemide (Demadex -) 40 mg PO DAILY [facility] Last Admin: 03/26/17 10:36 Dose: 40 mg Vitamin E (Vitamin E -) 400 unit PO DAILY [facility] Last Admin: 03/26/17 10:30 Dose: Not Given - Objective Vital Signs: Vital Signs Temperature 97.8 F 03/26/17 13:15 Pulse Rate 82 03/26/17 14:46 Respiratory Rate 27 H 03/26/17 14:46 Blood Pressure 136/79 03/26/17 14:46 O2 Sat by Pulse Oximetry (%) 99 03/26/17 14:46 Constitutional: Yes: No Distress, Calm Cardiovascular: Yes: Regular Rate and Rhythm Respiratory: Yes: Regular, CTA Bilaterally Gastrointestinal: Yes: Normal Bowel Sounds, Soft Musculoskeletal: Yes: Other Extremities: Yes: Other Neurological: Yes: Alert, Oriented Psychiatric: Yes: Alert, Oriented Labs: CBC, BMP 03/26/17 05:35 03/26/17 05:35 INR, PTT INR 1.55 (0.82-1.09) H 03/26/17 09:04 Assessment/Plan sepsis septic left wrist joint gm positive bacteremia fever tenderness leukocytosis nstemi increased bilrubin plan if the wbc does not come down then patient will need hida and drainage of gall bladder or his permacath should be removed i josefa discussed the case scenario with nephrology and we will taken a decision tomorrow after dialysis and looking at wbc if wbc trends down then we will focus again on gall bladder i josefa discussed these possibilities with
--- NOTE | 2017-03-26 17:02 | PN ---
Progress Note (short form) - Note Progress Note: asked by Dr Boyd to see this patient as second opinion for ID has requested second opinion for more "ideas" regarding her 's care imp/reccd very complicated 71 year old man now hospitalized for MSSA sepsis secondary to soft tissue infection of the left hand 02/25/17- this is hospital day #29 hospital course was compllicated by JOE requiring HD- permacath was placed 03/06 he is s/p GI bleed and had endoscopy 03/10 with duodenal ulcer noted He is s/p arrest 03/15 with intubation for 24-48 hours after extubation he noted worsening left hip pain radiating to left leg ct scan was done of chest/abd/pelvis- notable for left psoas hematoma and cholelithiasis- he is s/p aspiration of the collection I reveiwed ct scans and procedure with Dr Soliz- he aspirated hematoma- cultures were sent he has no fevers but a rising WBC count with eosinophilia he has an extensive maculopapular rash noted on his abdomen, chest and back on 03/23 as well he has abnormal LFTs he has had multiple negative blood cultures since 02/25/17 he had a CHEN 03/17 negative for vegetation has been on multiple antiibotics including nafcillin since admission he was on nafcillin until 03/25 now on meropenem and he received one dose of vancomycin yesterday after blood cultures were drawn PE notable for volume overload and rash permacath site is not tender left hand mobility is much improved with minimal pain per patient meds/labs reviewed ct scans reviewed with Dr Soliz chart reviewed-labs and micro persistent leukocytosis-multifactorial s/p aspiration of psoas hematoma drug rash- most likely beta lactam would suggest d/c antibiotics-multiple negative blood cultures consider Hida scan to r/o biliary disease - trend esr/crp f/u cultures would reculture off antibiotics joe/esrd- renal function appears to be improving discussed with Dr Boyd per family request Dr Butler will continue to manage his ID care
--- NOTE | 2017-03-26 18:45 | CONS ---
DATE OF CONSULTATION: DATE OF DICTATION: 03/26/2017 REQUESTING PHYSICIAN: Joshua Boyd M.D. CONSULTING PHYSICIAN: Ninoska Judge M.D. HISTORY OF PRESENT ILLNESS: This is a 71-year-old man who was admitted to [facility] -hospital day #29. I am asked to see him as a second opinion by the . This is a 71-year-old man who was originally admitted the 25 of February. He has a history of coronary artery disease and gout and chronically on allopurinol. He had developed pain and swelling of his left wrist and forearm, and he was [facility] where he was felt to have a gout exacerbation and was placed on colchicine and Indocin. He went to see Dr. Boyd, because his arm was not getting any better, who advised immediate hospitalization. He had been having low-grade fevers at home. The question of concern was for infection after admission,as well he was found to have acute kidney injury with creatinine of 3.9. Admission blood cultures were positive for methicillin sensitive Staphylococcus aureus. His original transthoracic echo was negative. His hospital course was complicated by acute kidney failure requiring hemodialysis. PermCath was placed on the . He is status post GI bleed. He had upper endoscopy on the with duodenal ulcer noted. He was then transferred to the floor. He had a cardiopulmonary arrest on the requiring intubation for 24-48 hours. He was successfully extubated with good mentation. He had a negative CHEN. After extubation he noted worsening left hip pain radiating to his left leg. A CAT scan was done of the chest, abdomen, and pelvis, notable for left psoas hematoma /abscess and cholelithiasis. He just returned today from interventional radiology. I went and reviewed his studies with Dr. Soliz who aspirated what he felt to be a hematoma from left psoas. He did not suspect any superinfection but did send cultures at the time. He has no fevers, but arising white count with the eosinophilia, which is why I was called to see him. I spoke with the nurse who reports he was noted on Thursday the to have a rash. The patient is currently awake and alert, he reports his left arm is markedly improved. He now has range of motion which he did not have before with minimal pain. He notes he is quite edematous and volume overloaded, but is starting to make some urine. He has no pain at the PermCath site, but does note left hip pain radiating down to his leg. PAST MEDICAL HISTORY: Notable for history of atherosclerotic heart disease, gout on allopurinol, hypertension. He has history of pneumonia in the past, type 2 diabetes, cholelithiasis, hyperlipidemia, fatty liver, BPH, anxiety. He has a history of vertigo as well. SURGICAL HISTORY: Notable for CABG x2. He had an original CABG at age 36. He had a re-day-old in the year 1999, at which time they removed the artery from his left forearm for the bypass. As well 3 years ago he had atrial fibrillation and required ablation, which was successful. ALLERGIES: He has no known drug allergies. SOCIAL HISTORY: He is retired. He lives with his . 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 He likes to play golf. There is no history of substance use. He stopped smoking 30 years ago. FAMILY HISTORY: Notable for heart disease. MEDICATION: Medications at home included allopurinol, Lipitor, vitamin D, Zetia , losartan, meclizine, metformin, metoprolol, spironolactone, and vitamin E. CURRENT MEDICATIONS: His current medications in the hospital include hydrocortisone cream, meropenem, subcutaneous heparin, allopurinol, Coreg, Miralax p.r.n., insulin, Demadex, oxycodone, Renvela, Protonix, vitamin D, and vitamin E. He received vancomycin yesterday. REVIEW OF SYSTEMS: He is as per HPI. He reports feeling improved. He is still quite edematous. His arm pain is markedly improved. His only complaints of pain is his left leg, and he has noted this rash. PHYSICAL EXAMINATION: General: He is awake and alert. Vital signs: Temperature is 97.8. He has had no fever. Pulse is 82. Blood pressure is 138/86. His respiratory rate is 25. He is saturating 98% on 2 L. HEENT: Normocephalic. Eyes are mildly icteric. He has no thrush. He has dentures in place. Neck: Supple. Lungs: A few crackles at the bases. Otherwise clear. Heart: Regular rate and rhythm. He has a well healed sternal incision extending down to his upper abdomen. Abdomen: Firm, nontender. Extremities: 2 to 3+ edema. He has scrotal edema as well. He has edema of the subcutaneous tissues. He has a diffuse rash on his abdomen, chest, and back, and he has a maculopapillary component on his left chest wall. LABORATORY: Notable for white count of 21.8, hemoglobin is 7.2, platelets are 260. He has 9% eosinophils. His INR is 1.5. His BUN and creatinine are 35 and 3.9 with a total bilirubin of 4.4, AST of 89, ALT of 189, alkaline phosphatase of 86. His blood cultures were positive on the with methicillin sensitive Staphylococcus aureus. Since that time, he has had multiple blood cultures repeated. On the , the , the , the , and the , all of which are negative. He had an aspiration of his left hand done on the that is negative, and blood cultures from the are pending. CAT scan report, he had imaging of his left arm twice that was negative for abscess, though they were not contrast studies, and the recent CAT scan of the chest, abdomen and pelvis is notable for cholelithiasis, acute left psoas hematoma and extensive subcutaneous edema. On ultrasound, he had mild nonspecific gallbladder wall thickening. IMPRESSION: 1. In summary, this is a very complicated 71-year-old man who has been in the hospital now for 29 days on antibiotics for methicillin sensitive Staphylococcus aureus soft tissue infection with bacteremia, negative transesophageal echocardiogram, negative repeat cultures, who now has worsening leukocytosis without fever, most likely multifactorial. He has been imaged, and the psoas collection has been aspirated and is consistent with hematoma with pending cultures, as well he has a drug rash most likely beta lactam. Would suggest stopping his antibiotics at this time. Would consider a HIDA scan to rule out biliary disease. Will check a sedimentation rate and a C-reactive protein and follow up his cultures with plans to re-culture off antibiotics. 2. Acute kidney injury, end-stage renal disease, renal function appears to be improving, and he is starting to make some urine. His management was discussed at length with Dr. Boyd. Per family request Dr. Butler will continue to manage his ID care. Thank you for this consultative opportunity. We will not be following the patient. NINOSKA JUDGE M.D. [id number] MTDD
[2017-03-27] MEDS ORDERED: PT OWN MED DRAWER 7, Y5N ONE ×2 (04:49→17:38)
[2017-03-27] MEDS: MEROPENEM 500 MG in DEXTROSE 5%-WATER - 100 ML IVPB SCH ×2 (04:50→17:51)
[2017-03-27] MEDS: INSULIN SLIDING SCALE (NOVOLOG) 1 VIAL SQ SCH ×3 (06:01→18:58)
[2017-03-27 06:39] LABS: BASOPHIL 0.5 % (0-2.0); EOSINOPHIL 11.8 % (0-4.5); MCH 28.7 pg (25.7-33.7); MCHC 32.9 g/dl (32.0-35.9); MEAN CELL VOLUME 87.1 fl (80-96); MEAN PLT VOLUME 8.4 fl (7.5-11.1); NEUTROPHILS 71.6 % (42.8-82.8); PLATELET COUNT 249 K/MM3 (134-434); RDW 22.4 % (11.9-15.9); WHITE BLOOD COUNT 17.8 K/mm3 (4.0-10.0)
[2017-03-27] MEDS: SEVELAMER CARBONATE 800 MG TAB (FP) PO SCH ×3 (07:58→17:41)
[2017-03-27 08:15] LABS: ANION GAP 13 (8-16); CALCIUM 8.6 mg/dL (8.5-10.1); CO2 28 mmol/L (21-32); GLUCOSE,RANDOM 164 mg/dL (74-106)
[2017-03-27 08:18] LABS: CREATININE 4.5 mg/dL (0.7-1.3)
[2017-03-27] MEDS: oxyCODONE HCL 5 MG TABLET PO PRN ×3 (08:32→22:12)
--- NOTE | 2017-03-27 10:03 | PN ---
Progress Note (short form) - Note Progress Note: Patient was seen in Nuclear Medicine; Having HIDA scan. Patient was seen by another ID MD as a request from the . Appreciate her input. If HIDA is abnormal we will plan for drainage of GB with Interventional Radiology. Dr. Butler had also focused on that previously. No pain today. He is aware and alert Vital Signs Temp 97.8 F 03/27/17 06:00 Pulse 72 03/27/17 06:00 Resp 20 03/27/17 06:00 BP 121/58 03/27/17 06:00 Pulse Ox 98 03/26/17 21:00 Intake & Output 03/26/17 03/26/17 03/27/17 11:59 23:59 11:59 Intake Total 350 600 100 Output Total 500 750 450 Balance -150 -150 -350 Weight 262 lb 259 lb 6.4 oz Intake: IVPB 100 50 100 Oral 250 550 Output: Urine 500 750 450 Void 500 750 450 Other: Voiding Method Urinal Urinal Bowel Movement Yes No # Bowel Movements 1 1 Weight Measurement Method Standing Scale Standing Scale Abnormal Lab Results 03/26/17 03/26/17 03/27/17 05:35 09:04 05:30 WBC 21.8 H 17.8 H RBC 2.50 L 2.43 L Hgb 7.2 L 7.0 L Hct 21.5 L 21.1 L RDW 23.0 H 22.4 H Neutrophils % (Manual) 84 H D Lymphocytes % (Manual) 2 L D Eosinophils % 11.8 H Eosinophils % (Manual) 9 H PT with INR 17.20 H INR 1.55 H Sodium Chloride BUN Creatinine Random Glucose 03/27/17 05:30 WBC RBC Hgb Hct RDW Neutrophils % (Manual) Lymphocytes % (Manual) Eosinophils % Eosinophils % (Manual) PT with INR INR Sodium 131 L Chloride 90 L BUN 44 H D Creatinine 4.5 H Random Glucose 164 H IMP: MSSA Sepsis due to Acute Cellulitis Left hand wrist and forearm Acute Renal Failure due to sepsi Acute liver Ischemia post Respiratory Arrest ASHD S/P CABG X2 Acute Cardiac Event post arrest Hematoma left psoas muscle ?ACute Cholecystitis Chronic Anemia Plan: Await HIDA and ? IR procedure F/U consultants F/U lab Problem List - Problems (1) Cellulitis Code(s): L03.90 - CELLULITIS, UNSPECIFIED Qualifiers: Qualified Code(s): L03.114 - Cellulitis of left upper limb; L03.114 - Cellulitis of left upper limb (2) GI bleed Code(s): K92.2 - GASTROINTESTINAL HEMORRHAGE, UNSPECIFIED Qualifiers: Qualified Code(s): K92.2 - Gastrointestinal hemorrhage, unspecified; K92.2 - Gastrointestinal hemorrhage, unspecified (3) Acute renal failure (ARF) Code(s): N17.9 - ACUTE KIDNEY FAILURE, UNSPECIFIED Qualifiers: Qualified Code(s): N17.9 - Acute kidney failure, unspecified; N17.9 - Acute kidney failure, unspecified; N17.9 - Acute kidney failure, unspecified (4) CAD (coronary artery disease) Code(s): I25.10 - ATHSCL HEART DISEASE OF [place] CORONARY ARTERY W/O ANG PCTRS Qualifiers: Qualified Code(s): I25.110 - Atherosclerotic heart disease of [place] coronary artery with unstable angina pectoris; I25.110 - Atherosclerotic heart disease of [place] coronary artery with unstable angina pectoris; I25.110 - Atherosclerotic heart disease of [place] coronary artery with unstable angina pectoris; I25.110 - Atherosclerotic heart disease of [place] coronary artery with unstable angina pectoris (5) Gout Code(s): M10.9 - GOUT, UNSPECIFIED (6) Hypertension Code(s): I10 - ESSENTIAL (PRIMARY) HYPERTENSION Qualifiers: Qualified Code(s): I10 - Essential (primary) hypertension; I10 - Essential (primary) hypertension; I10 - Essential (primary) hypertension (7) Anemia Code(s): D64.9 - ANEMIA, UNSPECIFIED Qualifiers: Qualified Code(s): D50.0 - Iron deficiency anemia secondary to blood loss (chronic); D50.0 - Iron deficiency anemia secondary to blood loss (chronic ) (8) Leukocytosis Code(s): D72.829 - ELEVATED WHITE BLOOD CELL COUNT, UNSPECIFIED (9) Respiratory arrest before cardiac arrest Code(s): I46.9 - CARDIAC ARREST, CAUSE UNSPECIFIED R09.2 - RESPIRATORY ARREST (10) Respiratory arrest Code(s): R09.2 - RESPIRATORY ARREST
[2017-03-27] MEDS: HEPARIN NA (PORCINE) 5,000 UNITS/ML 1ML VIAL SQ SCH ×2 (10:07→22:09)
--- NOTE | 2017-03-27 11:26 | PN ---
Progress Note, Physician History of Present Illness: Remains comfortable on NC, hemodynamically stable. Awaiting HIDA scan results, urine output has increased. - Current Medication List Current Medications: Active Medications Allopurinol (Zyloprim -) 100 mg PO DAILY [facility] Last Admin: 03/26/17 10:36 Dose: 100 mg Carvedilol (Coreg -) 3.125 mg PO BID [facility] Last Admin: 03/26/17 21:58 Dose: 3.125 mg Cholecalciferol (Vitamin D3 -) 2,000 unit PO DAILY [facility] Last Admin: 03/26/17 10:36 Dose: 2,000 unit Heparin Sodium (Porcine) (Heparin -) 5,000 unit SQ BID [facility] Last Admin: 03/26/17 21:57 Dose: 5,000 unit Hydrocortisone (Hytone 1% Cream -) 1 applic TP BID PRN PRN Reason: FOR ITCHING Last Admin: 03/22/17 23:23 Dose: 1 applic IV Flush (Picc Line Flush) 8 ml IVPUSH PRN PRN PRN Reason: Protocol Meropenem 500 mg/ Dextrose 100 mls @ 200 mls/hr IVPB Q12H [facility] Last Admin: 03/27/17 04:50 Dose: 200 mls/hr Insulin Aspart (Novolog Vial Sliding Scale -) 1 vial SQ TIDAC [facility] PRN Reason: Protocol Last Admin: 03/27/17 06:01 Dose: Not Given Lactulose (Cephulac (Oral Use)) 20 gm PO BID [facility] Last Admin: 03/26/17 21:55 Dose: Not Given Ondansetron HCl (Zofran Injection) 4 mg IVPB Q8H PRN PRN Reason: NAUSEA Oxycodone HCl (Roxicodone -) 10 mg PO Q3H PRN PRN Reason: PAIN Last Admin: 03/27/17 08:32 Dose: 10 mg Pantoprazole Sodium (Protonix -) 40 mg PO DAILY [facility] Last Admin: 03/26/17 10:36 Dose: 40 mg Polyethylene Glycol (Miralax (For Daily Use) -) 17 gm PO DAILY [facility] Last Admin: 03/26/17 10:37 Dose: Not Given Sevelamer Carbonate (Renvela -) 800 mg PO TIDCM [facility] Last Admin: 03/27/17 07:58 Dose: Not Given Torsemide (Demadex -) 40 mg PO DAILY [facility] Last Admin: 03/26/17 10:36 Dose: 40 mg Vitamin E (Vitamin E -) 400 unit PO DAILY [facility] Last Admin: 03/26/17 10:30 Dose: Not Given - Objective Vital Signs: Vital Signs Temperature 97.8 F 03/27/17 06:00 Pulse Rate 72 03/27/17 06:00 Respiratory Rate 20 03/27/17 06:00 Blood Pressure 121/58 03/27/17 06:00 O2 Sat by Pulse Oximetry (%) 98 03/26/17 21:00 Constitutional: Yes: No Distress, Calm Neck: Yes: Supple Cardiovascular: Yes: Regular Rate and Rhythm Respiratory: Yes: Regular, Diminished, On Nasal O2 Gastrointestinal: Yes: Soft, Hypoactive Bowel Sounds Edema: Yes Edema: LLE: 2+, RLE: 2+ Labs: CBC, BMP 03/27/17 05:30 03/27/17 05:30 INR, PTT INR 1.55 (0.82-1.09) H 03/26/17 09:04 Problem List - Problems (1) Acute renal failure (ARF) Code(s): N17.9 - ACUTE KIDNEY FAILURE, UNSPECIFIED Qualifiers: Qualified Code(s): N17.9 - Acute kidney failure, unspecified; N17.9 - Acute kidney failure, unspecified; N17.9 - Acute kidney failure, unspecified (2) CAD (coronary artery disease) Code(s): I25.10 - ATHSCL HEART DISEASE OF [place] CORONARY ARTERY W/O ANG PCTRS Qualifiers: Qualified Code(s): I25.110 - Atherosclerotic heart disease of [place] coronary artery with unstable angina pectoris; I25.110 - Atherosclerotic heart disease of [place] coronary artery with unstable angina pectoris; I25.110 - Atherosclerotic heart disease of [place] coronary artery with unstable angina pectoris; I25.110 - Atherosclerotic heart disease of [place] coronary artery with unstable angina pectoris (3) Cellulitis Code(s): L03.90 - CELLULITIS, UNSPECIFIED Qualifiers: Qualified Code(s): L03.114 - Cellulitis of left upper limb; L03.114 - Cellulitis of left upper limb (4) GI bleed Code(s): K92.2 - GASTROINTESTINAL HEMORRHAGE, UNSPECIFIED Qualifiers: Qualified Code(s): K92.2 - Gastrointestinal hemorrhage, unspecified; K92.2 - Gastrointestinal hemorrhage, unspecified (5) Hypertension Code(s): I10 - ESSENTIAL (PRIMARY) HYPERTENSION Qualifiers: Qualified Code(s): I10 - Essential (primary) hypertension; I10 - Essential (primary) hypertension; I10 - Essential (primary) hypertension (6) MSSA (methicillin susceptible Staphylococcus aureus) infection Code(s): A49.01 - METHICILLIN SUSCEP STAPH INFECTION, UNSP SITE (7) Respiratory arrest before cardiac arrest Code(s): I46.9 - CARDIAC ARREST, CAUSE UNSPECIFIED R09.2 - RESPIRATORY ARREST (8) Hyperlipidemia Code(s): E78.5 - HYPERLIPIDEMIA, UNSPECIFIED Qualifiers: Qualified Code(s): E78.00 - Pure hypercholesterolemia, unspecified; E78.00 - Pure hypercholesterolemia, unspecified; E78.00 - Pure hypercholesterolemia, unspecified; E78.0 - Pure hypercholesterolemia (9) Cholestasis Code(s): K83.1 - OBSTRUCTION OF BILE DUCT (10) Anemia Code(s): D64.9 - ANEMIA, UNSPECIFIED Qualifiers: Qualified Code(s): D50.0 - Iron deficiency anemia secondary to blood loss (chronic); D50.0 - Iron deficiency anemia secondary to blood loss (chronic ) Assessment/Plan 03/17/2017 CHEN 1. LV wall motion abnormality with moderate reduction in LV EF, estimated between 35-40% 2. MAC 3. Normal Mitral valve leaflets with no vegitation, trace to mild MR 4. AV sclerosis with no vegitation, no AI 5. Normal Tricuspid leaflets with no vegitation, mild TR 6. Faintly visualized Pulmonic valve with no vegitation 7. Intact atrial septum with no intra-cardiac shunting by color flow 8. Mild to degree of layered athero-sclerosis in the descending thoracic aorta and the distal thoracic arch 1. Cardiopulmonary arrest with PEA (Pulseless Electrical Activity) post resuscitation and post respiratory failure 2. Abnormal EKG, unclear underlying atrial rhythm now resolved most likely related profound metabolic/lactic acidosis 3. CAD post [place]/CABG angina pectoris with evidence of demand ischemic injury in context of acute pulmonary edema - resolved 4. Moderate LV systolic dysfunction with acute class III-IV NYHA classification LV failure 5. Acute kidney injury on HD with likely post ATN diuresis 6. Anemia, recent GI bleed related to peptic ulcer disease, post transfusion 7. History of HTN - episode of hypotension post pressor support - now stable 8. DM 9. Hypercholesterolemia 10. Left hand cellulitis with MSSA sepsis syndrome and septic shock and left psoas collection post drainage 11. Hyponatremia 12. Persistent leukocytosis, f/u wound cultures PLAN: 1. Follow-up HIDA scan results to r/o cystic duct obstruction, 2. Continue Heparin SQ with caution and use Protonix 40 qd, compression therapy , start Plavix once Hgb stabilizes 3. HD per the renal service with ultrafiltration and continue Demadex 40 qd 4. Continue Coreg 3.125 bid with uptitration as tolerated. Restart Statin once LFT recovers 5. Transfusion PRN to maintain Hgb equal or > 8.0 6. Abx course per ID, f/u wound and blood cultures
[2017-03-27] MEDS: POLYETHYLENE GLYCOL 3350 119 GM BTL PO SCH (11:43)
[2017-03-27] MEDS: VITAMIN E 400 INTERNATIONAL-UNITS CAPSULE (FP) PO SCH (11:43)
[2017-03-27] MEDS: LACTULOSE 20 GM/30 ML UDC (FOR ORAL USE ONLY) PO SCH ×2 (11:43→22:14)
[2017-03-27 13:22] LABS: ERYTHROCYTE SEDIMENTATION RATE 86 mm/hr (0-20)
--- NOTE | 2017-03-27 14:05 | PN ---
Progress Note (short form) - Note Progress Note: Renal Follow up for JOE Pt seen and examined in Tele awake and alert reports good urine output no sob, chest pain, fever no N/V/D for HD today Vital Signs Temperature 97.8 F 03/27/17 06:00 Pulse Rate 72 03/27/17 06:00 Respiratory Rate 20 03/27/17 06:00 Blood Pressure 121/58 03/27/17 06:00 O2 Sat by Pulse Oximetry (%) 98 03/26/17 21:00 Intake & Output 03/24/17 03/25/17 03/26/17 03/27/17 23:59 23:59 23:59 23:59 Intake Total 670 870 950 100 Output Total 650 1050 1250 450 Balance 20 -180 -300 -350 Weight 260 lb 4 oz 262 lb 259 lb 6.4 oz Gen: NAD CVS: RRR Lungs: CTA Abd: soft NT/ND Ext: No LE edema, left wrist and hand swollen, eyrthema improved CBC, BMP 03/27/17 05:30 03/27/17 05:30 Laboratory Tests 03/27/17 05:30 Calcium 8.6 Current Medications Allopurinol (Zyloprim -) 100 mg PO DAILY [facility] Last Admin: 03/26/17 10:36 Dose: 100 mg Carvedilol (Coreg -) 3.125 mg PO BID [facility] Last Admin: 03/26/17 21:58 Dose: 3.125 mg Cholecalciferol (Vitamin D3 -) 2,000 unit PO DAILY [facility] Last Admin: 03/26/17 10:36 Dose: 2,000 unit Heparin Sodium (Porcine) (Heparin -) 5,000 unit SQ BID [facility] Last Admin: 03/26/17 21:57 Dose: 5,000 unit Hydrocortisone (Hytone 1% Cream -) 1 applic TP BID PRN PRN Reason: FOR ITCHING Last Admin: 03/22/17 23:23 Dose: 1 applic IV Flush (Picc Line Flush) 8 ml IVPUSH PRN PRN PRN Reason: Protocol Meropenem 500 mg/ Dextrose 100 mls @ 200 mls/hr IVPB Q12H [facility] Last Admin: 03/27/17 04:50 Dose: 200 mls/hr Insulin Aspart (Novolog Vial Sliding Scale -) 1 vial SQ TIDAC [facility] PRN Reason: Protocol Last Admin: 03/27/17 06:01 Dose: Not Given Lactulose (Cephulac (Oral Use)) 20 gm PO BID [facility] Last Admin: 03/27/17 11:43 Dose: Not Given Ondansetron HCl (Zofran Injection) 4 mg IVPB Q8H PRN PRN Reason: NAUSEA Oxycodone HCl (Roxicodone -) 10 mg PO Q3H PRN PRN Reason: PAIN Last Admin: 03/27/17 08:32 Dose: 10 mg Pantoprazole Sodium (Protonix -) 40 mg PO DAILY [facility] Last Admin: 03/26/17 10:36 Dose: 40 mg Polyethylene Glycol (Miralax (For Daily Use) -) 17 gm PO DAILY [facility] Last Admin: 03/27/17 11:43 Dose: Not Given Sevelamer Carbonate (Renvela -) 800 mg PO TIDCM [facility] Last Admin: 03/27/17 12:08 Dose: Not Given Torsemide (Demadex -) 40 mg PO DAILY [facility] Last Admin: 03/26/17 10:36 Dose: 40 mg Vitamin E (Vitamin E -) 400 unit PO DAILY [facility] Last Admin: 03/27/17 11:43 Dose: Not Given A/P 71 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 #Oliguric Renal Failure with volume overload Renal function improving and pt is making a good amount of urine now will plan for HD today to remove as much fluid as tolerated will monitor off dialysis over the weekend dose all meds for Cr Cl less then 15 avoid NSAIDS, IV contrast #Persistent Lukocytosis Blood cultures all negative pt with eiosinophilia On Abx as per ID #Anemia Will transfuse 1 unit prbc with HD today Aubrey Acharya DO Problem List - Problems (1) Cellulitis Code(s): L03.90 - CELLULITIS, UNSPECIFIED Qualifiers: Qualified Code(s): L03.114 - Cellulitis of left upper limb; L03.114 - Cellulitis of left upper limb (2) Acute renal failure (ARF) Code(s): N17.9 - ACUTE KIDNEY FAILURE, UNSPECIFIED Qualifiers: Qualified Code(s): N17.9 - Acute kidney failure, unspecified; N17.9 - Acute kidney failure, unspecified; N17.9 - Acute kidney failure, unspecified (3) CAD (coronary artery disease) Code(s): I25.10 - ATHSCL HEART DISEASE OF [place] CORONARY ARTERY W/O ANG PCTRS Qualifiers: Qualified Code(s): I25.110 - Atherosclerotic heart disease of [place] coronary artery with unstable angina pectoris; I25.110 - Atherosclerotic heart disease of [place] coronary artery with unstable angina pectoris; I25.110 - Atherosclerotic heart disease of [place] coronary artery with unstable angina pectoris; I25.110 - Atherosclerotic heart disease of [place] coronary artery with unstable angina pectoris (4) Hypertension Code(s): I10 - ESSENTIAL (PRIMARY) HYPERTENSION Qualifiers: Qualified Code(s): I10 - Essential (primary) hypertension; I10 - Essential (primary) hypertension; I10 - Essential (primary) hypertension (5) Gout Code(s): M10.9 - GOUT, UNSPECIFIED (6) Leukocytosis Code(s): D72.829 - ELEVATED WHITE BLOOD CELL COUNT, UNSPECIFIED
[2017-03-27] MEDS: CARVEDILOL 3.125 MG TABLET (FP) PO SCH ×2 (14:06→22:12)
--- NOTE | 2017-03-27 16:17 | PN ---
Progress Note, Physician History of Present Illness: patient doing better no new issues hida scan done which is normal patient passing urine - Current Medication List Current Medications: Active Medications Allopurinol (Zyloprim -) 100 mg PO DAILY [facility] Last Admin: 03/26/17 10:36 Dose: 100 mg Carvedilol (Coreg -) 3.125 mg PO BID [facility] Last Admin: 03/27/17 14:06 Dose: Not Given Cholecalciferol (Vitamin D3 -) 2,000 unit PO DAILY [facility] Last Admin: 03/26/17 10:36 Dose: 2,000 unit Heparin Sodium (Porcine) (Heparin -) 5,000 unit SQ BID [facility] Last Admin: 03/27/17 10:07 Dose: Not Given Hydrocortisone (Hytone 1% Cream -) 1 applic TP BID PRN PRN Reason: FOR ITCHING Last Admin: 03/22/17 23:23 Dose: 1 applic IV Flush (Picc Line Flush) 8 ml IVPUSH PRN PRN PRN Reason: Protocol Meropenem 500 mg/ Dextrose 100 mls @ 200 mls/hr IVPB Q12H [facility] Last Admin: 03/27/17 04:50 Dose: 200 mls/hr Insulin Aspart (Novolog Vial Sliding Scale -) 1 vial SQ TIDAC [facility] PRN Reason: Protocol Last Admin: 03/27/17 12:40 Dose: 2 units Lactulose (Cephulac (Oral Use)) 20 gm PO BID [facility] Last Admin: 03/27/17 11:43 Dose: Not Given Ondansetron HCl (Zofran Injection) 4 mg IVPB Q8H PRN PRN Reason: NAUSEA Oxycodone HCl (Roxicodone -) 10 mg PO Q3H PRN PRN Reason: PAIN Last Admin: 03/27/17 15:35 Dose: 10 mg Pantoprazole Sodium (Protonix -) 40 mg PO DAILY [facility] Last Admin: 03/26/17 10:36 Dose: 40 mg Polyethylene Glycol (Miralax (For Daily Use) -) 17 gm PO DAILY [facility] Last Admin: 03/27/17 11:43 Dose: Not Given Sevelamer Carbonate (Renvela -) 800 mg PO TIDCM [facility] Last Admin: 03/27/17 12:08 Dose: Not Given Torsemide (Demadex -) 40 mg PO DAILY [facility] Last Admin: 03/26/17 10:36 Dose: 40 mg Vitamin E (Vitamin E -) 400 unit PO DAILY [facility] Last Admin: 03/27/17 11:43 Dose: Not Given - Objective Vital Signs: Vital Signs Temperature 98 F 03/27/17 14:25 Pulse Rate 78 03/27/17 16:00 Respiratory Rate 18 03/27/17 16:00 Blood Pressure 141/70 03/27/17 16:00 O2 Sat by Pulse Oximetry (%) 99 03/27/17 10:00 Constitutional: Yes: No Distress, Calm Cardiovascular: Yes: Regular Rate and Rhythm Respiratory: Yes: Regular, CTA Bilaterally Gastrointestinal: Yes: Normal Bowel Sounds, Soft Musculoskeletal: Yes: WNL Extremities: Yes: WNL Neurological: Yes: Alert, Oriented Psychiatric: Yes: Alert, Oriented Labs: CBC, BMP 03/27/17 05:30 03/27/17 05:30 INR, PTT INR 1.55 (0.82-1.09) H 03/26/17 09:04 Assessment/Plan sepsis septic left wrist joint gm positive bacteremia fever tenderness leukocytosis nstemi increased bilrubin wbc trending down will continue abx for now await for cx reports hida scan result noted if the wbc does not trend down then we will have to remove the permacath
[2017-03-27] MEDS ORDERED: INSULIN (NOVOLOG) ASPART 100 UNITS/ML 10ML VIAL ONE (17:39)
[2017-03-27] MEDS: TORSEMIDE 20 MG TABLET (FP) PO SCH (17:50)
[2017-03-27] MEDS: CHOLECALCIFEROL (VITAMIN D3) 1,000 UNIT TABLET (FP) PO SCH (17:51)
[2017-03-27] MEDS: PANTOPRAZOLE 40 MG TABLET (FP) PO SCH (17:51)
[2017-03-27] MEDS: ALLOPURINOL 100 MG TABLET (FP) PO SCH (17:51)
[2017-03-28] MEDS ORDERED: PT OWN MED DRAWER 7, Y5N ONE (02:02)
[2017-03-28] MEDS: MEROPENEM 500 MG in DEXTROSE 5%-WATER - 100 ML IVPB SCH ×2 (03:27→15:50)
[2017-03-28] MEDS: oxyCODONE HCL 5 MG TABLET PO PRN ×4 (04:36→21:59)
[2017-03-28] MEDS: INSULIN SLIDING SCALE (NOVOLOG) 1 VIAL SQ SCH ×3 (06:45→17:13)
[2017-03-28 07:09] LABS: BASOPHIL 0.3 % (0-2.0); EOSINOPHIL 9.5 % (0-4.5); MCH 29.6 pg (25.7-33.7); MCHC 34.4 g/dl (32.0-35.9); MEAN CELL VOLUME 86.2 fl (80-96); MEAN PLT VOLUME 8.1 fl (7.5-11.1); NEUTROPHILS 73.4 % (42.8-82.8); PLATELET COUNT 262 K/MM3 (134-434); RDW 20.7 % (11.9-15.9); WHITE BLOOD COUNT 15.7 K/mm3 (4.0-10.0)
[2017-03-28 07:11] LABS: ANION GAP 13 (8-16); CALCIUM 8.4 mg/dL (8.5-10.1); CO2 29 mmol/L (21-32); CREATININE 3.2 mg/dL (0.7-1.3); GLUCOSE,RANDOM 180 mg/dL (74-106); MAGNESIUM 2.1 mg/dL (1.8-2.4); PHOSPHOROUS 4.2 mg/dL (2.5-4.9)
[2017-03-28] MEDS: SEVELAMER CARBONATE 800 MG TAB (FP) PO SCH ×3 (08:29→17:13)
[2017-03-28] MEDS: CARVEDILOL 3.125 MG TABLET (FP) PO SCH ×2 (09:04→21:59)
[2017-03-28] MEDS: ALLOPURINOL 100 MG TABLET (FP) PO SCH (09:05)
[2017-03-28] MEDS: CHOLECALCIFEROL (VITAMIN D3) 1,000 UNIT TABLET (FP) PO SCH (09:05)
[2017-03-28] MEDS: POLYETHYLENE GLYCOL 3350 119 GM BTL PO SCH (09:05)
[2017-03-28] MEDS: HEPARIN NA (PORCINE) 5,000 UNITS/ML 1ML VIAL SQ SCH ×2 (09:05→21:59)
[2017-03-28] MEDS: TORSEMIDE 20 MG TABLET (FP) PO SCH (09:05)
[2017-03-28] MEDS: VITAMIN E 400 INTERNATIONAL-UNITS CAPSULE (FP) PO SCH (09:05)
[2017-03-28] MEDS: LACTULOSE 20 GM/30 ML UDC (FOR ORAL USE ONLY) PO SCH ×3 (09:05→22:11)
[2017-03-28] MEDS: PANTOPRAZOLE 40 MG TABLET (FP) PO SCH (09:06)
[2017-03-28] MEDS ORDERED: POTASSIUM CHLORIDE TABS 20 MEQ TABLET.ER (FP) PO ONE (09:11)
--- NOTE | 2017-03-28 11:04 | PN ---
Progress Note, Physician History of Present Illness: Remains comfortable on NC, hemodynamically stable. HIDA scan negative for acute cystic duct obstruction, urine output has increased. - Current Medication List Current Medications: Active Medications Allopurinol (Zyloprim -) 100 mg PO DAILY [facility] Last Admin: 03/28/17 09:05 Dose: 100 mg Carvedilol (Coreg -) 3.125 mg PO BID [facility] Last Admin: 03/28/17 09:04 Dose: 3.125 mg Cholecalciferol (Vitamin D3 -) 2,000 unit PO DAILY [facility] Last Admin: 03/28/17 09:05 Dose: 2,000 unit Heparin Sodium (Porcine) (Heparin -) 5,000 unit SQ BID [facility] Last Admin: 03/28/17 09:05 Dose: 5,000 unit Hydrocortisone (Hytone 1% Cream -) 1 applic TP BID PRN PRN Reason: FOR ITCHING Last Admin: 03/22/17 23:23 Dose: 1 applic IV Flush (Picc Line Flush) 8 ml IVPUSH PRN PRN PRN Reason: Protocol Meropenem 500 mg/ Dextrose 100 mls @ 200 mls/hr IVPB Q12H [facility] Last Admin: 03/28/17 03:27 Dose: 200 mls/hr Insulin Aspart (Novolog Vial Sliding Scale -) 1 vial SQ TIDAC [facility] PRN Reason: Protocol Last Admin: 03/28/17 06:45 Dose: 2 units Lactulose (Cephulac (Oral Use)) 20 gm PO BID [facility] Last Admin: 03/28/17 09:05 Dose: Not Given Ondansetron HCl (Zofran Injection) 4 mg IVPB Q8H PRN PRN Reason: NAUSEA Oxycodone HCl (Roxicodone -) 10 mg PO Q3H PRN PRN Reason: PAIN Last Admin: 03/28/17 09:32 Dose: 10 mg Pantoprazole Sodium (Protonix -) 40 mg PO DAILY [facility] Last Admin: 03/28/17 09:06 Dose: 40 mg Polyethylene Glycol (Miralax (For Daily Use) -) 17 gm PO DAILY [facility] Last Admin: 03/28/17 09:05 Dose: 17 gm Sevelamer Carbonate (Renvela -) 800 mg PO TIDCM [facility] Last Admin: 03/28/17 08:29 Dose: 800 mg Torsemide (Demadex -) 40 mg PO DAILY [facility] Last Admin: 03/28/17 09:05 Dose: 40 mg Vitamin E (Vitamin E -) 400 unit PO DAILY [facility] Last Admin: 03/28/17 09:05 Dose: Not Given - Objective Vital Signs: Vital Signs Temperature 98.3 F 03/28/17 10:00 Pulse Rate 82 03/28/17 10:00 Respiratory Rate 18 03/28/17 10:00 Blood Pressure 150/82 03/28/17 10:00 O2 Sat by Pulse Oximetry (%) 98 03/28/17 09:00 Constitutional: Yes: No Distress, Calm Neck: Yes: Supple Cardiovascular: Yes: Regular Rate and Rhythm Respiratory: Yes: Regular, Diminished, On Nasal O2 Gastrointestinal: Yes: Normal Bowel Sounds, Soft, Abdomen, Obese Edema: Yes Edema: LLE: 1+, RLE: 1+ Labs: CBC, BMP 03/28/17 06:30 03/28/17 06:30 INR, PTT INR 1.55 (0.82-1.09) H 03/26/17 09:04 Problem List - Problems (1) Acute renal failure (ARF) Code(s): N17.9 - ACUTE KIDNEY FAILURE, UNSPECIFIED Qualifiers: Qualified Code(s): N17.9 - Acute kidney failure, unspecified; N17.9 - Acute kidney failure, unspecified; N17.9 - Acute kidney failure, unspecified (2) CAD (coronary artery disease) Code(s): I25.10 - ATHSCL HEART DISEASE OF [place] CORONARY ARTERY W/O ANG PCTRS Qualifiers: Qualified Code(s): I25.110 - Atherosclerotic heart disease of [place] coronary artery with unstable angina pectoris; I25.110 - Atherosclerotic heart disease of [place] coronary artery with unstable angina pectoris; I25.110 - Atherosclerotic heart disease of [place] coronary artery with unstable angina pectoris; I25.110 - Atherosclerotic heart disease of [place] coronary artery with unstable angina pectoris (3) Cellulitis Code(s): L03.90 - CELLULITIS, UNSPECIFIED Qualifiers: Qualified Code(s): L03.114 - Cellulitis of left upper limb; L03.114 - Cellulitis of left upper limb (4) GI bleed Code(s): K92.2 - GASTROINTESTINAL HEMORRHAGE, UNSPECIFIED Qualifiers: Qualified Code(s): K92.2 - Gastrointestinal hemorrhage, unspecified; K92.2 - Gastrointestinal hemorrhage, unspecified (5) Hypertension Code(s): I10 - ESSENTIAL (PRIMARY) HYPERTENSION Qualifiers: Qualified Code(s): I10 - Essential (primary) hypertension; I10 - Essential (primary) hypertension; I10 - Essential (primary) hypertension (6) MSSA (methicillin susceptible Staphylococcus aureus) infection Code(s): A49.01 - METHICILLIN SUSCEP STAPH INFECTION, UNSP SITE (7) Respiratory arrest before cardiac arrest Code(s): I46.9 - CARDIAC ARREST, CAUSE UNSPECIFIED R09.2 - RESPIRATORY ARREST (8) Hyperlipidemia Code(s): E78.5 - HYPERLIPIDEMIA, UNSPECIFIED Qualifiers: Qualified Code(s): E78.00 - Pure hypercholesterolemia, unspecified; E78.00 - Pure hypercholesterolemia, unspecified; E78.00 - Pure hypercholesterolemia, unspecified; E78.0 - Pure hypercholesterolemia (9) Cholestasis Code(s): K83.1 - OBSTRUCTION OF BILE DUCT (10) Anemia Code(s): D64.9 - ANEMIA, UNSPECIFIED Qualifiers: Qualified Code(s): D50.0 - Iron deficiency anemia secondary to blood loss (chronic); D50.0 - Iron deficiency anemia secondary to blood loss (chronic ) Assessment/Plan 03/17/2017 CHEN 1. LV wall motion abnormality with moderate reduction in LV EF, estimated between 35-40% 2. MAC 3. Normal Mitral valve leaflets with no vegitation, trace to mild MR 4. AV sclerosis with no vegitation, no AI 5. Normal Tricuspid leaflets with no vegitation, mild TR 6. Faintly visualized Pulmonic valve with no vegitation 7. Intact atrial septum with no intra-cardiac shunting by color flow 8. Mild to degree of layered athero-sclerosis in the descending thoracic aorta and the distal thoracic arch 1. Cardiopulmonary arrest with PEA (Pulseless Electrical Activity) post resuscitation and post respiratory failure 2. Abnormal EKG, unclear underlying atrial rhythm now resolved most likely related profound metabolic/lactic acidosis 3. CAD post [place]/CABG angina pectoris with evidence of demand ischemic injury in context of acute pulmonary edema - resolved 4. Moderate LV systolic dysfunction with acute class III-IV NYHA classification LV failure 5. Acute kidney injury on HD with likely post ATN diuresis 6. Anemia, recent GI bleed related to peptic ulcer disease, post transfusion 7. History of HTN - episode of hypotension post pressor support - now stable 8. DM 9. Hypercholesterolemia 10. Left hand cellulitis with MSSA sepsis syndrome and septic shock and left psoas collection post drainage 11. Hyponatremia 12. Improving leukocytosis, f/u wound cultures PLAN: 1. Continue Heparin SQ with caution and use Protonix 40 qd, compression therapy , start Plavix once Hgb stabilizes 2. Monitor off HD per the renal service and continue Demadex 40 qd, repleted K 3. Continue Coreg 3.125 bid with uptitration as tolerated. Restart Statin once LFT recovers 4. Transfusion PRN to maintain Hgb equal or > 8.0 5. Abx course per ID, f/u wound and blood cultures
--- NOTE | 2017-03-28 11:37 | PN ---
Progress Note (short form) - Note Progress Note: Renal Follow up for JOE Pt seen and examined in Tele awake and alert s/p dialysis yesterday making good urine now no sob, chest pain legs remains swollen Vital Signs Temperature 98.3 F 03/28/17 10:00 Pulse Rate 82 03/28/17 10:00 Respiratory Rate 18 03/28/17 10:00 Blood Pressure 150/82 03/28/17 10:00 O2 Sat by Pulse Oximetry (%) 98 03/28/17 09:00 Intake & Output 03/25/17 03/26/17 03/27/17 03/28/17 23:59 23:59 23:59 23:59 Intake Total 870 950 300 250 Output Total 1050 1250 1650 Balance -180 -300 -1350 250 Weight 262 lb 259 lb 6.4 oz 253 lb 4 oz Gen: NAD CVS: RRR Lungs: CTA Abd: soft NT/ND Ext: 2+ edema in LE CBC, BMP 03/28/17 06:30 03/28/17 06:30 Current Medications Allopurinol (Zyloprim -) 100 mg PO DAILY [facility] Last Admin: 03/28/17 09:05 Dose: 100 mg Carvedilol (Coreg -) 3.125 mg PO BID [facility] Last Admin: 03/28/17 09:04 Dose: 3.125 mg Cholecalciferol (Vitamin D3 -) 2,000 unit PO DAILY [facility] Last Admin: 03/28/17 09:05 Dose: 2,000 unit Heparin Sodium (Porcine) (Heparin -) 5,000 unit SQ BID [facility] Last Admin: 03/28/17 09:05 Dose: 5,000 unit Hydrocortisone (Hytone 1% Cream -) 1 applic TP BID PRN PRN Reason: FOR ITCHING Last Admin: 03/22/17 23:23 Dose: 1 applic IV Flush (Picc Line Flush) 8 ml IVPUSH PRN PRN PRN Reason: Protocol Meropenem 500 mg/ Dextrose 100 mls @ 200 mls/hr IVPB Q12H [facility] Last Admin: 03/28/17 03:27 Dose: 200 mls/hr Insulin Aspart (Novolog Vial Sliding Scale -) 1 vial SQ TIDAC PAULINA PRN Reason: Protocol Last Admin: 03/28/17 06:45 Dose: 2 units Lactulose (Cephulac (Oral Use)) 20 gm PO BID [facility] Last Admin: 03/28/17 09:05 Dose: Not Given Ondansetron HCl (Zofran Injection) 4 mg IVPB Q8H PRN PRN Reason: NAUSEA Oxycodone HCl (Roxicodone -) 10 mg PO Q3H PRN PRN Reason: PAIN Last Admin: 03/28/17 09:32 Dose: 10 mg Pantoprazole Sodium (Protonix -) 40 mg PO DAILY [facility] Last Admin: 03/28/17 09:06 Dose: 40 mg Polyethylene Glycol (Miralax (For Daily Use) -) 17 gm PO DAILY [facility] Last Admin: 03/28/17 09:05 Dose: 17 gm Sevelamer Carbonate (Renvela -) 800 mg PO TIDCM [facility] Last Admin: 03/28/17 08:29 Dose: 800 mg Torsemide (Demadex -) 40 mg PO DAILY [facility] Last Admin: 03/28/17 09:05 Dose: 40 mg Vitamin E (Vitamin E -) 400 unit PO DAILY [facility] Last Admin: 03/28/17 09:05 Dose: Not Given A/P 71 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 #Oliguric Renal Failure with volume overload Renal function showing signs of recovery pt is making a good amt of urine now BUN/Cr are overall lower will trend BUN/Cr and urine output hopefully can defer any further dialysis continue fluid restriction for now #Persistent Lukocytosis Blood cultures all negative pt with eiosinophilia On Abx as per ID #Anemia s/p 1 unit prbc transfusion yesterday trend cbc transfuse as needed Aubrey Acharya DO Problem List - Problems (1) Cellulitis Code(s): L03.90 - CELLULITIS, UNSPECIFIED Qualifiers: Qualified Code(s): L03.114 - Cellulitis of left upper limb; L03.114 - Cellulitis of left upper limb (2) Acute renal failure (ARF) Code(s): N17.9 - ACUTE KIDNEY FAILURE, UNSPECIFIED Qualifiers: Qualified Code(s): N17.9 - Acute kidney failure, unspecified; N17.9 - Acute kidney failure, unspecified; N17.9 - Acute kidney failure, unspecified (3) CAD (coronary artery disease) Code(s): I25.10 - ATHSCL HEART DISEASE OF [place] CORONARY ARTERY W/O ANG PCTRS Qualifiers: Qualified Code(s): I25.110 - Atherosclerotic heart disease of [place] coronary artery with unstable angina pectoris; I25.110 - Atherosclerotic heart disease of [place] coronary artery with unstable angina pectoris; I25.110 - Atherosclerotic heart disease of [place] coronary artery with unstable angina pectoris; I25.110 - Atherosclerotic heart disease of [place] coronary artery with unstable angina pectoris (4) Hypertension Code(s): I10 - ESSENTIAL (PRIMARY) HYPERTENSION Qualifiers: Qualified Code(s): I10 - Essential (primary) hypertension; I10 - Essential (primary) hypertension; I10 - Essential (primary) hypertension (5) Gout Code(s): M10.9 - GOUT, UNSPECIFIED (6) Leukocytosis Code(s): D72.829 - ELEVATED WHITE BLOOD CELL COUNT, UNSPECIFIED
--- NOTE | 2017-03-28 13:48 | PN ---
Progress Note, Physician Chief Complaint: Feels much today. Markedly increased urination. History of Present Illness: Patient seems to have turned the corner today with increased urination and improved renal lab. He is also more alert and aware. at his side. Hida scan normal. C/S of Hematoma left psoas muscle negative so far. VS stable OOB in chair. ???SNF this week. - Current Medication List Current Medications: Active Medications Allopurinol (Zyloprim -) 100 mg PO DAILY [facility] Last Admin: 03/28/17 09:05 Dose: 100 mg Carvedilol (Coreg -) 3.125 mg PO BID [facility] Last Admin: 03/28/17 09:04 Dose: 3.125 mg Cholecalciferol (Vitamin D3 -) 2,000 unit PO DAILY [facility] Last Admin: 03/28/17 09:05 Dose: 2,000 unit Heparin Sodium (Porcine) (Heparin -) 5,000 unit SQ BID [facility] Last Admin: 03/28/17 09:05 Dose: 5,000 unit Hydrocortisone (Hytone 1% Cream -) 1 applic TP BID PRN PRN Reason: FOR ITCHING Last Admin: 03/22/17 23:23 Dose: 1 applic IV Flush (Picc Line Flush) 8 ml IVPUSH PRN PRN PRN Reason: Protocol Meropenem 500 mg/ Dextrose 100 mls @ 200 mls/hr IVPB Q12H [facility] Last Admin: 03/28/17 03:27 Dose: 200 mls/hr Insulin Aspart (Novolog Vial Sliding Scale -) 1 vial SQ TIDAC PAULINA PRN Reason: Protocol Last Admin: 03/28/17 11:55 Dose: 4 units Lactulose (Cephulac (Oral Use)) 20 gm PO BID [facility] Last Admin: 03/28/17 09:05 Dose: Not Given Ondansetron HCl (Zofran Injection) 4 mg IVPB Q8H PRN PRN Reason: NAUSEA Oxycodone HCl (Roxicodone -) 10 mg PO Q3H PRN PRN Reason: PAIN Last Admin: 03/28/17 09:32 Dose: 10 mg Pantoprazole Sodium (Protonix -) 40 mg PO DAILY [facility] Last Admin: 03/28/17 09:06 Dose: 40 mg Polyethylene Glycol (Miralax (For Daily Use) -) 17 gm PO DAILY [facility] Last Admin: 03/28/17 09:05 Dose: 17 gm Sevelamer Carbonate (Renvela -) 800 mg PO TIDCM [facility] Last Admin: 03/28/17 11:55 Dose: 800 mg Torsemide (Demadex -) 40 mg PO DAILY [facility] Last Admin: 03/28/17 09:05 Dose: 40 mg Vitamin E (Vitamin E -) 400 unit PO DAILY [facility] Last Admin: 03/28/17 09:05 Dose: Not Given - Objective Vital Signs: Vital Signs Temperature 98.3 F 03/28/17 10:00 Pulse Rate 82 03/28/17 10:00 Respiratory Rate 18 03/28/17 10:00 Blood Pressure 150/82 03/28/17 10:00 O2 Sat by Pulse Oximetry (%) 98 03/28/17 09:00 Constitutional: Yes: Calm Eyes: Yes: Sclera Icterus (slightly icteric) Cardiovascular: Yes: Regular Rate and Rhythm Respiratory: Yes: Diminished, On Nasal O2, Rhonchi (at bases) Gastrointestinal: Yes: Soft, Abdomen, Obese. No: Tenderness Genitourinary: No: Taylor Present Edema: LLE: 3+, RLE: 3+ Neurological: Yes: Alert, Oriented Labs: CBC, BMP 03/28/17 06:30 03/28/17 06:30 INR, PTT INR 1.55 (0.82-1.09) H 03/26/17 09:04 Problem List - Problems (1) Cellulitis Assessment/Plan: resolved left hand and wrist with slight swelling persisting. Code(s): L03.90 - CELLULITIS, UNSPECIFIED Qualifiers: Qualified Code(s): L03.114 - Cellulitis of left upper limb; L03.114 - Cellulitis of left upper limb (2) GI bleed Assessment/Plan: No melena but did require another transfusion of 1 unit of packed cells yesterday. repeat CBC AM. Code(s): K92.2 - GASTROINTESTINAL HEMORRHAGE, UNSPECIFIED Qualifiers: Qualified Code(s): K92.2 - Gastrointestinal hemorrhage, unspecified; K92.2 - Gastrointestinal hemorrhage, unspecified (3) Acute renal failure (ARF) Assessment/Plan: Much improved BUN/ Creatinine today 28/3.2 Code(s): N17.9 - ACUTE KIDNEY FAILURE, UNSPECIFIED Qualifiers: Qualified Code(s): N17.9 - Acute kidney failure, unspecified; N17.9 - Acute kidney failure, unspecified; N17.9 - Acute kidney failure, unspecified (4) CAD (coronary artery disease) Assessment/Plan: Had acute coronary event after his respiratory arrest. Stable now. Code(s): I25.10 - ATHSCL HEART DISEASE OF [place] CORONARY ARTERY W/O ANG PCTRS Qualifiers: Qualified Code(s): I25.110 - Atherosclerotic heart disease of [place] coronary artery with unstable angina pectoris; I25.110 - Atherosclerotic heart disease of [place] coronary artery with unstable angina pectoris; I25.110 - Atherosclerotic heart disease of [place] coronary artery with unstable angina pectoris; I25.110 - Atherosclerotic heart disease of [place] coronary artery with unstable angina pectoris (5) Gout Code(s): M10.9 - GOUT, UNSPECIFIED (6) Hypertension Assessment/Plan: Stable BP currently. Code(s): I10 - ESSENTIAL (PRIMARY) HYPERTENSION Qualifiers: Qualified Code(s): I10 - Essential (primary) hypertension; I10 - Essential (primary) hypertension; I10 - Essential (primary) hypertension (7) Anemia Code(s): D64.9 - ANEMIA, UNSPECIFIED Qualifiers: Qualified Code(s): D50.0 - Iron deficiency anemia secondary to blood loss (chronic); D50.0 - Iron deficiency anemia secondary to blood loss (chronic ) (8) Leukocytosis Assessment/Plan: Lower today at 15,000. To follow. Code(s): D72.829 - ELEVATED WHITE BLOOD CELL COUNT, UNSPECIFIED (9) Respiratory arrest before cardiac arrest Code(s): I46.9 - CARDIAC ARREST, CAUSE UNSPECIFIED R09.2 - RESPIRATORY ARREST (10) Respiratory arrest Assessment/Plan: Due to Fluid Overload; doing well now but still pleural effusions Code(s): R09.2 - RESPIRATORY ARREST
--- NOTE | 2017-03-28 14:07 | PN ---
Progress Note, Physician History of Present Illness: patient stable urinating all parameters improving all cx results noted wbc trending down - Current Medication List Current Medications: Active Medications Allopurinol (Zyloprim -) 100 mg PO DAILY [facility] Last Admin: 03/28/17 09:05 Dose: 100 mg Carvedilol (Coreg -) 3.125 mg PO BID [facility] Last Admin: 03/28/17 09:04 Dose: 3.125 mg Cholecalciferol (Vitamin D3 -) 2,000 unit PO DAILY [facility] Last Admin: 03/28/17 09:05 Dose: 2,000 unit Heparin Sodium (Porcine) (Heparin -) 5,000 unit SQ BID [facility] Last Admin: 03/28/17 09:05 Dose: 5,000 unit Hydrocortisone (Hytone 1% Cream -) 1 applic TP BID PRN PRN Reason: FOR ITCHING Last Admin: 03/22/17 23:23 Dose: 1 applic IV Flush (Picc Line Flush) 8 ml IVPUSH PRN PRN PRN Reason: Protocol Meropenem 500 mg/ Dextrose 100 mls @ 200 mls/hr IVPB Q12H [facility] Last Admin: 03/28/17 03:27 Dose: 200 mls/hr Insulin Aspart (Novolog Vial Sliding Scale -) 1 vial SQ TIDAC PAULINA PRN Reason: Protocol Last Admin: 03/28/17 11:55 Dose: 4 units Lactulose (Cephulac (Oral Use)) 20 gm PO BID [facility] Last Admin: 03/28/17 09:05 Dose: Not Given Ondansetron HCl (Zofran Injection) 4 mg IVPB Q8H PRN PRN Reason: NAUSEA Oxycodone HCl (Roxicodone -) 10 mg PO Q3H PRN PRN Reason: PAIN Last Admin: 03/28/17 09:32 Dose: 10 mg Pantoprazole Sodium (Protonix -) 40 mg PO DAILY [facility] Last Admin: 03/28/17 09:06 Dose: 40 mg Polyethylene Glycol (Miralax (For Daily Use) -) 17 gm PO DAILY [facility] Last Admin: 03/28/17 09:05 Dose: 17 gm Sevelamer Carbonate (Renvela -) 800 mg PO TIDCM [facility] Last Admin: 03/28/17 11:55 Dose: 800 mg Torsemide (Demadex -) 40 mg PO DAILY [facility] Last Admin: 03/28/17 09:05 Dose: 40 mg Vitamin E (Vitamin E -) 400 unit PO DAILY [facility] Last Admin: 03/28/17 09:05 Dose: Not Given - Objective Vital Signs: Vital Signs Temperature 98.3 F 03/28/17 10:00 Pulse Rate 82 03/28/17 10:00 Respiratory Rate 18 03/28/17 10:00 Blood Pressure 150/82 03/28/17 10:00 O2 Sat by Pulse Oximetry (%) 98 03/28/17 09:00 Constitutional: Yes: No Distress, Calm Respiratory: Yes: Regular, CTA Bilaterally Gastrointestinal: Yes: Normal Bowel Sounds, Soft Musculoskeletal: Yes: WNL Extremities: Yes: Other Neurological: Yes: Alert, Oriented Psychiatric: Yes: Alert, Oriented Labs: CBC, BMP 03/28/17 06:30 03/28/17 06:30 INR, PTT INR 1.55 (0.82-1.09) H 03/26/17 09:04 Assessment/Plan sepsis septic left wrist joint gm positive bacteremia fever tenderness leukocytosis nstemi increased bilrubin conitnue abx for now can go to snf by thu or will see wbc on thursday and make final decision rest as per primary team
[2017-03-29] MEDS ORDERED: PT OWN MED DRAWER 7, Y5N ONE (03:43)
[2017-03-29] MEDS: oxyCODONE HCL 5 MG TABLET PO PRN ×4 (03:48→22:27)
[2017-03-29] MEDS: MEROPENEM 500 MG in DEXTROSE 5%-WATER - 100 ML IVPB SCH ×2 (03:48→15:05)
[2017-03-29] MEDS: INSULIN SLIDING SCALE (NOVOLOG) 1 VIAL SQ SCH ×3 (06:14→17:13)
[2017-03-29 07:19] LABS: BASOPHIL 0.4 % (0-2.0); EOSINOPHIL 16.5 % (0-4.5); MCH 29.6 pg (25.7-33.7); MCHC 33.7 g/dl (32.0-35.9); MEAN CELL VOLUME 87.9 fl (80-96); NEUTROPHILS 64.1 % (42.8-82.8); PLATELET COUNT 257 K/MM3 (134-434); RDW 19.9 % (11.9-15.9); WHITE BLOOD COUNT 13.8 K/mm3 (4.0-10.0)
[2017-03-29 07:22] LABS: ANION GAP 11 (8-16); CALCIUM 8.8 mg/dL (8.5-10.1); CO2 30 mmol/L (21-32); CREATININE 3.9 mg/dL (0.7-1.3); GLUCOSE,RANDOM 160 mg/dL (74-106)
[2017-03-29] MEDS ORDERED: POTASSIUM CHLORIDE TABS 20 MEQ TABLET.ER (FP) PO ONE (07:31)
[2017-03-29] MEDS: SEVELAMER CARBONATE 800 MG TAB (FP) PO SCH ×3 (08:41→17:13)
--- NOTE | 2017-03-29 08:43 | PN ---
Progress Note (short form) - Note Progress Note: Renal Follow up for JOE Pt seen and examined at the bedside awake and alert sitting in chair good urine output no sob, chest pain Vital Signs Temperature 98.3 F 03/29/17 06:00 Pulse Rate 75 03/29/17 06:00 Respiratory Rate 18 03/29/17 06:00 Blood Pressure 135/65 03/29/17 06:00 O2 Sat by Pulse Oximetry (%) 98 03/28/17 21:00 Intake & Output 03/26/17 03/27/17 03/28/17 03/29/17 23:59 23:59 23:59 23:59 Intake Total 950 300 250 100 Output Total 1250 1650 2825 1050 Balance -300 -1350 -2575 -950 Weight 262 lb 259 lb 6.4 oz 253 lb 4 oz 252 lb 6.4 oz Gen: NAD CVS: RRR Lungs: CTA Abd: soft NT/ND Ext: 2+ edema in LE CBC, BMP 03/29/17 06:40 03/29/17 06:40 Current Medications Allopurinol (Zyloprim -) 100 mg PO DAILY [facility] Last Admin: 03/28/17 09:05 Dose: 100 mg Carvedilol (Coreg -) 3.125 mg PO BID [facility] Last Admin: 03/28/17 21:59 Dose: 3.125 mg Cholecalciferol (Vitamin D3 -) 2,000 unit PO DAILY [facility] Last Admin: 03/28/17 09:05 Dose: 2,000 unit Heparin Sodium (Porcine) (Heparin -) 5,000 unit SQ BID [facility] Last Admin: 03/28/17 21:59 Dose: 5,000 unit Hydrocortisone (Hytone 1% Cream -) 1 applic TP BID PRN PRN Reason: FOR ITCHING Last Admin: 03/22/17 23:23 Dose: 1 applic IV Flush (Picc Line Flush) 8 ml IVPUSH PRN PRN PRN Reason: Protocol Meropenem 500 mg/ Dextrose 100 mls @ 200 mls/hr IVPB Q12H [facility] Last Admin: 03/29/17 03:48 Dose: 200 mls/hr Insulin Aspart (Novolog Vial Sliding Scale -) 1 vial SQ TIDAC PAULINA PRN Reason: Protocol Last Admin: 03/29/17 06:14 Dose: 2 units Lactulose (Cephulac (Oral Use)) 20 gm PO BID [facility] Last Admin: 03/28/17 22:11 Dose: Not Given Ondansetron HCl (Zofran Injection) 4 mg IVPB Q8H PRN PRN Reason: NAUSEA Oxycodone HCl (Roxicodone -) 10 mg PO Q3H PRN PRN Reason: PAIN Last Admin: 03/29/17 03:48 Dose: 10 mg Pantoprazole Sodium (Protonix -) 40 mg PO DAILY [facility] Last Admin: 03/28/17 09:06 Dose: 40 mg Polyethylene Glycol (Miralax (For Daily Use) -) 17 gm PO DAILY [facility] Last Admin: 03/28/17 09:05 Dose: 17 gm Sevelamer Carbonate (Renvela -) 800 mg PO TIDCM [facility] Last Admin: 03/28/17 17:13 Dose: 800 mg Vitamin E (Vitamin E -) 400 unit PO DAILY [facility] Last Admin: 03/28/17 09:05 Dose: Not Given A/P 71 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 #Renal Failure with volume overload secondary to ATN Renal function improving pt making a good amount of urine d/c torsemide today, monitor urine output w/o diuretics Trend BUN/Cr will hold any further dialysis for now #Persistent Lukocytosis Blood cultures all negative pt with eiosinophilia On Abx as per ID WBC improving #Anemia Trend CBC Aubrey Acharya DO Problem List - Problems (1) Cellulitis Code(s): L03.90 - CELLULITIS, UNSPECIFIED Qualifiers: Qualified Code(s): L03.114 - Cellulitis of left upper limb; L03.114 - Cellulitis of left upper limb (2) Acute renal failure (ARF) Code(s): N17.9 - ACUTE KIDNEY FAILURE, UNSPECIFIED Qualifiers: Qualified Code(s): N17.9 - Acute kidney failure, unspecified; N17.9 - Acute kidney failure, unspecified; N17.9 - Acute kidney failure, unspecified (3) CAD (coronary artery disease) Code(s): I25.10 - ATHSCL HEART DISEASE OF [place] CORONARY ARTERY W/O ANG PCTRS Qualifiers: Qualified Code(s): I25.110 - Atherosclerotic heart disease of [place] coronary artery with unstable angina pectoris; I25.110 - Atherosclerotic heart disease of [place] coronary artery with unstable angina pectoris; I25.110 - Atherosclerotic heart disease of [place] coronary artery with unstable angina pectoris; I25.110 - Atherosclerotic heart disease of [place] coronary artery with unstable angina pectoris (4) Hypertension Code(s): I10 - ESSENTIAL (PRIMARY) HYPERTENSION Qualifiers: Qualified Code(s): I10 - Essential (primary) hypertension; I10 - Essential (primary) hypertension; I10 - Essential (primary) hypertension (5) Gout Code(s): M10.9 - GOUT, UNSPECIFIED (6) Leukocytosis Code(s): D72.829 - ELEVATED WHITE BLOOD CELL COUNT, UNSPECIFIED
[2017-03-29] MEDS: HYDROCORTISONE 1% TOPICAL CREAM 30 GM TUBE TP PRN (08:44)
[2017-03-29] MEDS: PANTOPRAZOLE 40 MG TABLET (FP) PO SCH (09:04)
[2017-03-29] MEDS: ALLOPURINOL 100 MG TABLET (FP) PO SCH (09:04)
[2017-03-29] MEDS: CHOLECALCIFEROL (VITAMIN D3) 1,000 UNIT TABLET (FP) PO SCH (09:04)
[2017-03-29] MEDS: LACTULOSE 20 GM/30 ML UDC (FOR ORAL USE ONLY) PO SCH ×3 (09:04→22:29)
[2017-03-29] MEDS: POLYETHYLENE GLYCOL 3350 119 GM BTL PO SCH (09:04)
[2017-03-29] MEDS: CARVEDILOL 3.125 MG TABLET (FP) PO SCH ×2 (09:04→22:26)
[2017-03-29] MEDS: HEPARIN NA (PORCINE) 5,000 UNITS/ML 1ML VIAL SQ SCH ×2 (09:04→22:26)
[2017-03-29] MEDS: VITAMIN E 400 INTERNATIONAL-UNITS CAPSULE (FP) PO SCH (09:05)
--- NOTE | 2017-03-29 10:21 | PN ---
Progress Note, Physician History of Present Illness: Remains comfortable on NC, hemodynamically stable. Diuresing well off HD and Demadex. - Current Medication List Current Medications: Active Medications Allopurinol (Zyloprim -) 100 mg PO DAILY [facility] Last Admin: 03/29/17 09:04 Dose: 100 mg Carvedilol (Coreg -) 3.125 mg PO BID [facility] Last Admin: 03/29/17 09:04 Dose: 3.125 mg Cholecalciferol (Vitamin D3 -) 2,000 unit PO DAILY [facility] Last Admin: 03/29/17 09:04 Dose: 2,000 unit Heparin Sodium (Porcine) (Heparin -) 5,000 unit SQ BID [facility] Last Admin: 03/29/17 09:04 Dose: 5,000 unit Hydrocortisone (Hytone 1% Cream -) 1 applic TP BID PRN PRN Reason: FOR ITCHING Last Admin: 03/29/17 08:44 Dose: 1 applic IV Flush (Picc Line Flush) 8 ml IVPUSH PRN PRN PRN Reason: Protocol Meropenem 500 mg/ Dextrose 100 mls @ 200 mls/hr IVPB Q12H [facility] Last Admin: 03/29/17 03:48 Dose: 200 mls/hr Insulin Aspart (Novolog Vial Sliding Scale -) 1 vial SQ TIDAC PAULINA PRN Reason: Protocol Last Admin: 03/29/17 06:14 Dose: 2 units Lactulose (Cephulac (Oral Use)) 20 gm PO BID [facility] Last Admin: 03/29/17 09:04 Dose: Not Given Ondansetron HCl (Zofran Injection) 4 mg IVPB Q8H PRN PRN Reason: NAUSEA Oxycodone HCl (Roxicodone -) 10 mg PO Q3H PRN PRN Reason: PAIN Last Admin: 03/29/17 08:42 Dose: 10 mg Pantoprazole Sodium (Protonix -) 40 mg PO DAILY [facility] Last Admin: 03/29/17 09:04 Dose: 40 mg Polyethylene Glycol (Miralax (For Daily Use) -) 17 gm PO DAILY [facility] Last Admin: 03/29/17 09:04 Dose: 17 gm Sevelamer Carbonate (Renvela -) 800 mg PO TIDCM [facility] Last Admin: 03/29/17 08:41 Dose: 800 mg Vitamin E (Vitamin E -) 400 unit PO DAILY [facility] Last Admin: 03/29/17 09:05 Dose: Not Given - Objective Vital Signs: Vital Signs Temperature 98.3 F 03/29/17 06:00 Pulse Rate 75 03/29/17 06:00 Respiratory Rate 18 03/29/17 06:00 Blood Pressure 135/65 03/29/17 06:00 O2 Sat by Pulse Oximetry (%) 98 03/28/17 21:00 Constitutional: Yes: No Distress, Calm Neck: Yes: Supple Cardiovascular: Yes: Regular Rate and Rhythm Respiratory: Yes: Regular, Diminished, On Nasal O2 Gastrointestinal: Yes: Normal Bowel Sounds, Soft Edema: Yes Edema: LLE: 1+, RLE: 1+ Labs: CBC, BMP 03/29/17 06:40 03/29/17 06:40 INR, PTT INR 1.55 (0.82-1.09) H 03/26/17 09:04 Problem List - Problems (1) Acute renal failure (ARF) Code(s): N17.9 - ACUTE KIDNEY FAILURE, UNSPECIFIED Qualifiers: Qualified Code(s): N17.9 - Acute kidney failure, unspecified; N17.9 - Acute kidney failure, unspecified; N17.9 - Acute kidney failure, unspecified (2) CAD (coronary artery disease) Code(s): I25.10 - ATHSCL HEART DISEASE OF [place] CORONARY ARTERY W/O ANG PCTRS Qualifiers: Qualified Code(s): I25.110 - Atherosclerotic heart disease of [place] coronary artery with unstable angina pectoris; I25.110 - Atherosclerotic heart disease of [place] coronary artery with unstable angina pectoris; I25.110 - Atherosclerotic heart disease of [place] coronary artery with unstable angina pectoris; I25.110 - Atherosclerotic heart disease of [place] coronary artery with unstable angina pectoris (3) Cellulitis Code(s): L03.90 - CELLULITIS, UNSPECIFIED Qualifiers: Qualified Code(s): L03.114 - Cellulitis of left upper limb; L03.114 - Cellulitis of left upper limb (4) GI bleed Code(s): K92.2 - GASTROINTESTINAL HEMORRHAGE, UNSPECIFIED Qualifiers: Qualified Code(s): K92.2 - Gastrointestinal hemorrhage, unspecified; K92.2 - Gastrointestinal hemorrhage, unspecified (5) Hypertension Code(s): I10 - ESSENTIAL (PRIMARY) HYPERTENSION Qualifiers: Qualified Code(s): I10 - Essential (primary) hypertension; I10 - Essential (primary) hypertension; I10 - Essential (primary) hypertension (6) MSSA (methicillin susceptible Staphylococcus aureus) infection Code(s): A49.01 - METHICILLIN SUSCEP STAPH INFECTION, UNSP SITE (7) Respiratory arrest before cardiac arrest Code(s): I46.9 - CARDIAC ARREST, CAUSE UNSPECIFIED R09.2 - RESPIRATORY ARREST (8) Hyperlipidemia Code(s): E78.5 - HYPERLIPIDEMIA, UNSPECIFIED Qualifiers: Qualified Code(s): E78.00 - Pure hypercholesterolemia, unspecified; E78.00 - Pure hypercholesterolemia, unspecified; E78.00 - Pure hypercholesterolemia, unspecified; E78.0 - Pure hypercholesterolemia (9) Cholestasis Code(s): K83.1 - OBSTRUCTION OF BILE DUCT (10) Anemia Code(s): D64.9 - ANEMIA, UNSPECIFIED Qualifiers: Qualified Code(s): D50.0 - Iron deficiency anemia secondary to blood loss (chronic); D50.0 - Iron deficiency anemia secondary to blood loss (chronic ) Assessment/Plan 03/17/2017 CHEN 1. LV wall motion abnormality with moderate reduction in LV EF, estimated between 35-40% 2. MAC 3. Normal Mitral valve leaflets with no vegitation, trace to mild MR 4. AV sclerosis with no vegitation, no AI 5. Normal Tricuspid leaflets with no vegitation, mild TR 6. Faintly visualized Pulmonic valve with no vegitation 7. Intact atrial septum with no intra-cardiac shunting by color flow 8. Mild to degree of layered athero-sclerosis in the descending thoracic aorta and the distal thoracic arch 1. Cardiopulmonary arrest with PEA (Pulseless Electrical Activity) post resuscitation and post respiratory failure 2. Abnormal EKG, unclear underlying atrial rhythm now resolved most likely related profound metabolic/lactic acidosis 3. CAD post AR/CABG angina pectoris with evidence of demand ischemic injury in context of acute pulmonary edema - resolved 4. Moderate LV systolic dysfunction with acute class III-IV NYHA classification LV failure 5. Acute kidney injury post HD with post ATN diuresis resolving 6. Anemia, recent GI bleed related to peptic ulcer disease, post transfusion 7. History of HTN - episode of hypotension post pressor support - now stable 8. DM 9. Hypercholesterolemia 10. Left hand cellulitis with MSSA sepsis syndrome and septic shock and left psoas collection post drainage 11. Hyponatremia 12. Improving leukocytosis, f/u wound cultures PLAN: 1. Continue Heparin SQ with caution and use Protonix 40 qd, compression therapy , start Plavix once Hgb stabilizes 2. Monitor off HD and diuretics per the renal service, replete K 3. Continue Coreg 3.125 bid with uptitration as tolerated. Restart Statin once LFT recovers 4. Transfusion PRN to maintain Hgb equal or > 8.0 5. Abx course per ID, f/u wound and blood cultures NGTD
--- NOTE | 2017-03-29 12:47 | PN ---
Progress Note, Physician Chief Complaint: Tired off and on but pleased he has increased his urinary output markedly. History of Present Illness: Patient has had 2800cc's urine output yesterday and 1400cc so far today. Renal values have bumped up a bit today with no dialysis for 2 days Stool guiac from yesterday is positive; will follow as hemogloblin is 7.7Gm. Vital signs stable so will hold transfusion for today. On Pantoprazole Rx. No BM today. - Current Medication List Current Medications: Active Medications Allopurinol (Zyloprim -) 100 mg PO DAILY [facility] Last Admin: 03/29/17 09:04 Dose: 100 mg Carvedilol (Coreg -) 3.125 mg PO BID [facility] Last Admin: 03/29/17 09:04 Dose: 3.125 mg Cholecalciferol (Vitamin D3 -) 2,000 unit PO DAILY [facility] Last Admin: 03/29/17 09:04 Dose: 2,000 unit Heparin Sodium (Porcine) (Heparin -) 5,000 unit SQ BID [facility] Last Admin: 03/29/17 09:04 Dose: 5,000 unit Hydrocortisone (Hytone 1% Cream -) 1 applic TP BID PRN PRN Reason: FOR ITCHING Last Admin: 03/29/17 08:44 Dose: 1 applic IV Flush (Picc Line Flush) 8 ml IVPUSH PRN PRN PRN Reason: Protocol Meropenem 500 mg/ Dextrose 100 mls @ 200 mls/hr IVPB Q12H [facility] Last Admin: 03/29/17 03:48 Dose: 200 mls/hr Insulin Aspart (Novolog Vial Sliding Scale -) 1 vial SQ TIDAC PAULINA PRN Reason: Protocol Last Admin: 03/29/17 11:48 Dose: 2 units Lactulose (Cephulac (Oral Use)) 20 gm PO BID [facility] Last Admin: 03/29/17 09:04 Dose: Not Given Ondansetron HCl (Zofran Injection) 4 mg IVPB Q8H PRN PRN Reason: NAUSEA Oxycodone HCl (Roxicodone -) 10 mg PO Q3H PRN PRN Reason: PAIN Last Admin: 03/29/17 08:42 Dose: 10 mg Pantoprazole Sodium (Protonix -) 40 mg PO DAILY [facility] Last Admin: 03/29/17 09:04 Dose: 40 mg Polyethylene Glycol (Miralax (For Daily Use) -) 17 gm PO DAILY [facility] Last Admin: 03/29/17 09:04 Dose: 17 gm Sevelamer Carbonate (Renvela -) 800 mg PO TIDCM [facility] Last Admin: 03/29/17 11:48 Dose: 800 mg - Objective Vital Signs: Vital Signs Temperature 98.2 F 03/29/17 10:00 Pulse Rate 74 03/29/17 10:00 Respiratory Rate 18 03/29/17 10:00 Blood Pressure 124/57 03/29/17 10:00 O2 Sat by Pulse Oximetry (%) 99 03/29/17 09:00 Constitutional: Yes: Calm, Pallor Eyes: Yes: Conjunctiva Clear, Sclera Icterus Cardiovascular: Yes: Regular Rate and Rhythm Respiratory: Yes: Diminished. No: Rales, Wheezes Gastrointestinal: Yes: Abdomen, Obese Genitourinary: Yes: Scrotal Edema. No: Taylor Present Edema: LLE: 3+, RLE: 3+ Integumentary: Yes: Skin Tear (with smll scab on left scrotum) Neurological: Yes: Alert, Oriented Labs: CBC, BMP 03/29/17 06:40 03/29/17 06:40 INR, PTT INR 1.55 (0.82-1.09) H 03/26/17 09:04 Problem List - Problems (1) Acute renal failure (ARF) Assessment/Plan: renal lab: BUN 37; Creatinine 3.9 2800 cc output yesterday; 1400cc so far today. Code(s): N17.9 - ACUTE KIDNEY FAILURE, UNSPECIFIED Qualifiers: Qualified Code(s): N17.9 - Acute kidney failure, unspecified; N17.9 - Acute kidney failure, unspecified; N17.9 - Acute kidney failure, unspecified (2) GI bleed Assessment/Plan: No melena but Hx GI bleed on this admission; on pantoprazole; Hb 7.7; will follow and type and screen ordered. Code(s): K92.2 - GASTROINTESTINAL HEMORRHAGE, UNSPECIFIED Qualifiers: Qualified Code(s): K92.2 - Gastrointestinal hemorrhage, unspecified; K92.2 - Gastrointestinal hemorrhage, unspecified (3) Cellulitis Assessment/Plan: Caused original sepsis with MSSA. Code(s): L03.90 - CELLULITIS, UNSPECIFIED Qualifiers: Qualified Code(s): L03.114 - Cellulitis of left upper limb; L03.114 - Cellulitis of left upper limb (4) CAD (coronary artery disease) Assessment/Plan: Seen by Cardiology MD today. Code(s): I25.10 - ATHSCL HEART DISEASE OF [place] CORONARY ARTERY W/O ANG PCTRS Qualifiers: Qualified Code(s): I25.110 - Atherosclerotic heart disease of [place] coronary artery with unstable angina pectoris; I25.110 - Atherosclerotic heart disease of [place] coronary artery with unstable angina pectoris; I25.110 - Atherosclerotic heart disease of [place] coronary artery with unstable angina pectoris; I25.110 - Atherosclerotic heart disease of [place] coronary artery with unstable angina pectoris (5) Gout Code(s): M10.9 - GOUT, UNSPECIFIED (6) Hypertension Assessment/Plan: Stable BP readings:124/57 Code(s): I10 - ESSENTIAL (PRIMARY) HYPERTENSION Qualifiers: Qualified Code(s): I10 - Essential (primary) hypertension; I10 - Essential (primary) hypertension; I10 - Essential (primary) hypertension (7) Anemia Assessment/Plan: Hb 7.7; Vital signs stable; on Protonix. Type and screen and f/u cbc ordered. Code(s): D64.9 - ANEMIA, UNSPECIFIED Qualifiers: Qualified Code(s): D50.0 - Iron deficiency anemia secondary to blood loss (chronic); D50.0 - Iron deficiency anemia secondary to blood loss (chronic ) (8) Leukocytosis Assessment/Plan: Down to 13,800. Code(s): D72.829 - ELEVATED WHITE BLOOD CELL COUNT, UNSPECIFIED (9) Respiratory arrest Assessment/Plan: No obvious neurological sequelae Code(s): R09.2 - RESPIRATORY ARREST
--- NOTE | 2017-03-29 14:59 | PN ---
Progress Note, Physician History of Present Illness: stable moving around wbc trending down - Current Medication List Current Medications: Active Medications Allopurinol (Zyloprim -) 100 mg PO DAILY [facility] Last Admin: 03/29/17 09:04 Dose: 100 mg Carvedilol (Coreg -) 3.125 mg PO BID [facility] Last Admin: 03/29/17 09:04 Dose: 3.125 mg Cholecalciferol (Vitamin D3 -) 2,000 unit PO DAILY [facility] Last Admin: 03/29/17 09:04 Dose: 2,000 unit Heparin Sodium (Porcine) (Heparin -) 5,000 unit SQ BID [facility] Last Admin: 03/29/17 09:04 Dose: 5,000 unit Hydrocortisone (Hytone 1% Cream -) 1 applic TP BID PRN PRN Reason: FOR ITCHING Last Admin: 03/29/17 08:44 Dose: 1 applic IV Flush (Picc Line Flush) 8 ml IVPUSH PRN PRN PRN Reason: Protocol Meropenem 500 mg/ Dextrose 100 mls @ 200 mls/hr IVPB Q12H [facility] Last Admin: 03/29/17 03:48 Dose: 200 mls/hr Insulin Aspart (Novolog Vial Sliding Scale -) 1 vial SQ TIDAC PAULINA PRN Reason: Protocol Last Admin: 03/29/17 11:48 Dose: 2 units Lactulose (Cephulac (Oral Use)) 20 gm PO BID [facility] Last Admin: 03/29/17 09:04 Dose: Not Given Ondansetron HCl (Zofran Injection) 4 mg IVPB Q8H PRN PRN Reason: NAUSEA Oxycodone HCl (Roxicodone -) 10 mg PO Q3H PRN PRN Reason: PAIN Last Admin: 03/29/17 08:42 Dose: 10 mg Pantoprazole Sodium (Protonix -) 40 mg PO DAILY [facility] Last Admin: 03/29/17 09:04 Dose: 40 mg Polyethylene Glycol (Miralax (For Daily Use) -) 17 gm PO DAILY [facility] Last Admin: 03/29/17 09:04 Dose: 17 gm Sevelamer Carbonate (Renvela -) 800 mg PO TIDCM [facility] Last Admin: 03/29/17 11:48 Dose: 800 mg Zinc Acetate/Diphenhydramine (Benadryl 2% Cream) 1 applic TP BID [facility] - Objective Vital Signs: Vital Signs Temperature 98.6 F 03/29/17 14:00 Pulse Rate 82 03/29/17 14:00 Respiratory Rate 18 03/29/17 14:00 Blood Pressure 141/66 03/29/17 14:00 O2 Sat by Pulse Oximetry (%) 99 03/29/17 09:00 Constitutional: Yes: No Distress, Calm Cardiovascular: Yes: Regular Rate and Rhythm Respiratory: Yes: Regular, CTA Bilaterally Gastrointestinal: Yes: Normal Bowel Sounds, Soft Musculoskeletal: Yes: Other Extremities: Yes: Other (left wrist improving) Neurological: Yes: Alert, Oriented Psychiatric: Yes: Alert, Oriented Labs: CBC, BMP 03/29/17 06:40 03/29/17 06:40 INR, PTT INR 1.55 (0.82-1.09) H 03/26/17 09:04 Assessment/Plan Problem List - Problems (1) Acute renal failure (ARF) Code(s): N17.9 - ACUTE KIDNEY FAILURE, UNSPECIFIED Qualifiers: Qualified Code(s): N17.9 - Acute kidney failure, unspecified; N17.9 - Acute kidney failure, unspecified; N17.9 - Acute kidney failure, unspecified (2) GI bleed Code(s): K92.2 - GASTROINTESTINAL HEMORRHAGE, UNSPECIFIED Qualifiers: Qualified Code(s): K92.2 - Gastrointestinal hemorrhage, unspecified; K92.2 - Gastrointestinal hemorrhage, unspecified (3) Cellulitis Code(s): L03.90 - CELLULITIS, UNSPECIFIED Qualifiers: Qualified Code(s): L03.114 - Cellulitis of left upper limb; L03.114 - Cellulitis of left upper limb (4) CAD (coronary artery disease) Code(s): I25.10 - ATHSCL HEART DISEASE OF [place] CORONARY ARTERY W/O ANG PCTRS Qualifiers: Qualified Code(s): I25.110 - Atherosclerotic heart disease of [place] coronary artery with unstable angina pectoris; I25.110 - Atherosclerotic heart disease of [place] coronary artery with unstable angina pectoris; I25.110 - Atherosclerotic heart disease of [place] coronary artery with unstable angina pectoris; I25.110 - Atherosclerotic heart disease of [place] coronary artery with unstable angina pectoris (5) Gout Code(s): M10.9 - GOUT, UNSPECIFIED (6) Hypertension Code(s): I10 - ESSENTIAL (PRIMARY) HYPERTENSION Qualifiers: Qualified Code(s): I10 - Essential (primary) hypertension; I10 - Essential (primary) hypertension; I10 - Essential (primary) hypertension (7) Anemia Code(s): D64.9 - ANEMIA, UNSPECIFIED Qualifiers: Qualified Code(s): D50.0 - Iron deficiency anemia secondary to blood loss (chronic); D50.0 - Iron deficiency anemia secondary to blood loss (chronic ) (8) Leukocytosis Code(s): D72.829 - ELEVATED WHITE BLOOD CELL COUNT, UNSPECIFIED (9) Respiratory arrest Code(s): R09.2 - RESPIRATORY ARREST mssa bacteremia sepsis conitnue abx for now will probably stop abx tomorrow
[2017-03-30] MEDS ORDERED: PT OWN MED DRAWER 7, Y5N ONE (02:26)
[2017-03-30] MEDS: MEROPENEM 500 MG in DEXTROSE 5%-WATER - 100 ML IVPB SCH ×2 (03:10→17:17)
[2017-03-30] MEDS: INSULIN SLIDING SCALE (NOVOLOG) 1 VIAL SQ SCH ×3 (06:05→17:18)
[2017-03-30] MEDS: oxyCODONE HCL 5 MG TABLET PO PRN ×4 (06:06→20:31)
[2017-03-30 06:52] LABS: BASOPHIL 0.9 % (0-2.0); EOSINOPHIL 18.6 % (0-4.5); MCH 29.9 pg (25.7-33.7); MEAN CELL VOLUME 88.1 fl (80-96); MEAN PLT VOLUME 7.9 fl (7.5-11.1); NEUTROPHILS 58.4 % (42.8-82.8); PLATELET COUNT 242 K/MM3 (134-434); RDW 20.4 % (11.9-15.9); WHITE BLOOD COUNT 11.9 K/mm3 (4.0-10.0)
[2017-03-30 07:40] LABS: ANION GAP 14 (8-16); CALCIUM 8.7 mg/dL (8.5-10.1); CO2 28 mmol/L (21-32); GLUCOSE,RANDOM 147 mg/dL (74-106); MAGNESIUM 2.1 mg/dL (1.8-2.4); PHOSPHOROUS 5.1 mg/dL (2.5-4.9)
--- NOTE | 2017-03-30 09:25 | PN ---
Progress Note, Physician History of Present Illness: Remains comfortable on NC, hemodynamically stable. Diuresing well off HD and Demadex. - Current Medication List Current Medications: Active Medications Allopurinol (Zyloprim -) 100 mg PO DAILY [facility] Last Admin: 03/29/17 09:04 Dose: 100 mg Carvedilol (Coreg -) 3.125 mg PO BID [facility] Last Admin: 03/29/17 22:26 Dose: 3.125 mg Cholecalciferol (Vitamin D3 -) 2,000 unit PO DAILY [facility] Last Admin: 03/29/17 09:04 Dose: 2,000 unit Heparin Sodium (Porcine) (Heparin -) 5,000 unit SQ BID [facility] Last Admin: 03/29/17 22:26 Dose: 5,000 unit Hydrocortisone (Hytone 1% Cream -) 1 applic TP BID PRN PRN Reason: FOR ITCHING Last Admin: 03/29/17 08:44 Dose: 1 applic IV Flush (Picc Line Flush) 8 ml IVPUSH PRN PRN PRN Reason: Protocol Meropenem 500 mg/ Dextrose 100 mls @ 200 mls/hr IVPB Q12H [facility] Last Admin: 03/30/17 03:10 Dose: 200 mls/hr Insulin Aspart (Novolog Vial Sliding Scale -) 1 vial SQ TIDAC PAULINA PRN Reason: Protocol Last Admin: 03/30/17 06:05 Dose: 2 units Lactulose (Cephulac (Oral Use)) 20 gm PO BID [facility] Last Admin: 03/29/17 22:29 Dose: Not Given Ondansetron HCl (Zofran Injection) 4 mg IVPB Q8H PRN PRN Reason: NAUSEA Oxycodone HCl (Roxicodone -) 10 mg PO Q3H PRN PRN Reason: PAIN Last Admin: 03/30/17 06:06 Dose: 10 mg Pantoprazole Sodium (Protonix -) 40 mg PO DAILY [facility] Last Admin: 03/29/17 09:04 Dose: 40 mg Polyethylene Glycol (Miralax (For Daily Use) -) 17 gm PO DAILY [facility] Last Admin: 03/29/17 09:04 Dose: 17 gm Potassium Chloride (K-Dur -) 40 meq PO ONCE ONE Stop: 03/30/17 09:31 Sevelamer Carbonate (Renvela -) 800 mg PO TIDCM [facility] Last Admin: 03/29/17 17:13 Dose: 800 mg Zinc Acetate/Diphenhydramine (Benadryl 2% Cream) 1 applic TP BID [facility] Last Admin: 03/29/17 22:29 Dose: Not Given - Objective Vital Signs: Vital Signs Temperature 98.0 F 03/30/17 06:00 Pulse Rate 75 03/30/17 06:00 Respiratory Rate 16 03/30/17 06:00 Blood Pressure 117/55 03/30/17 06:00 O2 Sat by Pulse Oximetry (%) 99 03/29/17 21:00 Constitutional: Yes: No Distress, Calm Neck: Yes: Supple Cardiovascular: Yes: Regular Rate and Rhythm Respiratory: Yes: Regular, Diminished Gastrointestinal: Yes: Normal Bowel Sounds, Soft, Abdomen, Obese Edema: Yes Edema: LLE: 1+, RLE: 1+ Labs: CBC, BMP 03/30/17 05:45 03/30/17 05:45 INR, PTT INR 1.55 (0.82-1.09) H 03/26/17 09:04 Problem List - Problems (1) Acute renal failure (ARF) Code(s): N17.9 - ACUTE KIDNEY FAILURE, UNSPECIFIED Qualifiers: Qualified Code(s): N17.9 - Acute kidney failure, unspecified; N17.9 - Acute kidney failure, unspecified; N17.9 - Acute kidney failure, unspecified (2) CAD (coronary artery disease) Code(s): I25.10 - ATHSCL HEART DISEASE OF [place] CORONARY ARTERY W/O ANG PCTRS Qualifiers: Qualified Code(s): I25.110 - Atherosclerotic heart disease of [place] coronary artery with unstable angina pectoris; I25.110 - Atherosclerotic heart disease of [place] coronary artery with unstable angina pectoris; I25.110 - Atherosclerotic heart disease of [place] coronary artery with unstable angina pectoris; I25.110 - Atherosclerotic heart disease of [place] coronary artery with unstable angina pectoris (3) Cellulitis Code(s): L03.90 - CELLULITIS, UNSPECIFIED Qualifiers: Qualified Code(s): L03.114 - Cellulitis of left upper limb; L03.114 - Cellulitis of left upper limb (4) GI bleed Code(s): K92.2 - GASTROINTESTINAL HEMORRHAGE, UNSPECIFIED Qualifiers: Qualified Code(s): K92.2 - Gastrointestinal hemorrhage, unspecified; K92.2 - Gastrointestinal hemorrhage, unspecified (5) Hypertension Code(s): I10 - ESSENTIAL (PRIMARY) HYPERTENSION Qualifiers: Qualified Code(s): I10 - Essential (primary) hypertension; I10 - Essential (primary) hypertension; I10 - Essential (primary) hypertension (6) MSSA (methicillin susceptible Staphylococcus aureus) infection Code(s): A49.01 - METHICILLIN SUSCEP STAPH INFECTION, UNSP SITE (7) Respiratory arrest before cardiac arrest Code(s): I46.9 - CARDIAC ARREST, CAUSE UNSPECIFIED R09.2 - RESPIRATORY ARREST (8) Hyperlipidemia Code(s): E78.5 - HYPERLIPIDEMIA, UNSPECIFIED Qualifiers: Qualified Code(s): E78.00 - Pure hypercholesterolemia, unspecified; E78.00 - Pure hypercholesterolemia, unspecified; E78.00 - Pure hypercholesterolemia, unspecified; E78.0 - Pure hypercholesterolemia (9) Cholestasis Code(s): K83.1 - OBSTRUCTION OF BILE DUCT (10) Anemia Code(s): D64.9 - ANEMIA, UNSPECIFIED Qualifiers: Qualified Code(s): D50.0 - Iron deficiency anemia secondary to blood loss (chronic); D50.0 - Iron deficiency anemia secondary to blood loss (chronic ) Assessment/Plan 03/17/2017 CHEN 1. LV wall motion abnormality with moderate reduction in LV EF, estimated between 35-40% 2. MAC 3. Normal Mitral valve leaflets with no vegitation, trace to mild MR 4. AV sclerosis with no vegitation, no AI 5. Normal Tricuspid leaflets with no vegitation, mild TR 6. Faintly visualized Pulmonic valve with no vegitation 7. Intact atrial septum with no intra-cardiac shunting by color flow 8. Mild to degree of layered athero-sclerosis in the descending thoracic aorta and the distal thoracic arch 1. Cardiopulmonary arrest with PEA (Pulseless Electrical Activity) post resuscitation and post respiratory failure 2. Abnormal EKG, unclear underlying atrial rhythm now resolved most likely related profound metabolic/lactic acidosis 3. CAD post [place]/CABG angina pectoris with evidence of demand ischemic injury in context of acute pulmonary edema - resolved 4. Moderate LV systolic dysfunction with acute class III-IV NYHA classification LV failure 5. Acute kidney injury post HD with post ATN diuresis resolving 6. Anemia, recent GI bleed related to peptic ulcer disease, post transfusion 7. History of HTN - episode of hypotension post pressor support - now stable 8. DM 9. Hypercholesterolemia 10. Left hand cellulitis with MSSA sepsis syndrome and septic shock and left psoas collection post drainage 11. Hyponatremia 12. Improving leukocytosis, f/u wound cultures PLAN: 1. Continue Heparin SQ with caution and use Protonix 40 qd, compression therapy , start Plavix once Hgb stabilizes 2. Monitor off HD and diuretics per the renal service, replete K 3. Continue Coreg 3.125 bid with uptitration as tolerated. Restart Statin once LFT recovers 4. Transfusion PRN to maintain Hgb equal or > 8.0 5. Complete Abx course per ID, f/u wound and blood cultures NGTD
[2017-03-30] MEDS ORDERED: POTASSIUM CHLORIDE TABS 20 MEQ TABLET.ER (FP) PO ONE (09:30)
[2017-03-30] MEDS: LACTULOSE 20 GM/30 ML UDC (FOR ORAL USE ONLY) PO SCH ×2 (09:36→21:44)
[2017-03-30] MEDS: SEVELAMER CARBONATE 800 MG TAB (FP) PO SCH ×3 (09:36→17:17)
[2017-03-30] MEDS: ALLOPURINOL 100 MG TABLET (FP) PO SCH (09:37)
[2017-03-30] MEDS: PANTOPRAZOLE 40 MG TABLET (FP) PO SCH (09:37)
[2017-03-30] MEDS: CHOLECALCIFEROL (VITAMIN D3) 1,000 UNIT TABLET (FP) PO SCH (09:37)
[2017-03-30] MEDS: CARVEDILOL 3.125 MG TABLET (FP) PO SCH ×2 (09:37→21:44)
[2017-03-30] MEDS: POLYETHYLENE GLYCOL 3350 119 GM BTL PO SCH (09:39)
[2017-03-30] MEDS: HEPARIN NA (PORCINE) 5,000 UNITS/ML 1ML VIAL SQ SCH ×2 (09:39→21:44)
--- NOTE | 2017-03-30 10:01 | PN ---
Progress Note (short form) - Note Progress Note: Patient sitting at bedside Some fatigued but able to walk + walker and family yesterday. Hb down to 7.2GM; will transfuse 1 unit p. cells; Cardiology rec. noted. Some SOB on movement; no chest pain. less left buttock pain. Unine output 2100 cc yesterday 500 cc so far today; BUN 43 Creatinine 4.0 On Exam: Vital Signs Temp 98.0 F 03/30/17 06:00 Pulse 75 03/30/17 06:00 Resp 16 03/30/17 06:00 BP 117/55 03/30/17 06:00 Pulse Ox 99 03/29/17 21:00 Intake & Output 03/29/17 03/29/17 03/30/17 11:59 23:59 11:59 Intake Total 100 700 250 Output Total 1420 700 500 Balance -1320 0 -250 Weight 252 lb 6.4 oz 252 lb 9.6 oz Intake: IV 0 lfa 22 10/2 0 IVPB 100 100 Oral 700 150 Output: Urine 1420 700 500 Void 1420 700 500 Other: Voiding Method Urinal Urinal Bowel Movement No No Weight Measurement Method Standing Scale Standing Scale Alert Still slightly icteric Chest: Decreased breath sounds at bases Cor: reg Abd: Obese Ext:3+ edema Abnormal Lab Results 03/30/17 03/30/17 05:45 05:45 WBC 11.9 H RBC 2.42 L Hgb 7.2 L Hct 21.3 L RDW 20.4 H Eosinophils % 18.6 H Sodium 134 L Potassium 3.3 L Chloride 92 L BUN 43 H Creatinine 4.0 H Random Glucose 147 H Phosphorus 5.1 H D IMP: MSSA sepsis with Acute renal Failur S/P Respiratory Arrest Acute Coronary Event post Arrest Elevated Liver Chem due to ischemia post Arrest Acute anemia Hypokalemia Hemastoma Psoas Muscle S/P CABG X2 Plan: 1 unit packed cells F/U Lab Renal,Cardiology F/U Lab F/U Renal,Cardiology and ID MD's Problem List - Problems (1) Acute renal failure (ARF) Code(s): N17.9 - ACUTE KIDNEY FAILURE, UNSPECIFIED Qualifiers: Qualified Code(s): N17.9 - Acute kidney failure, unspecified; N17.9 - Acute kidney failure, unspecified; N17.9 - Acute kidney failure, unspecified (2) GI bleed Code(s): K92.2 - GASTROINTESTINAL HEMORRHAGE, UNSPECIFIED Qualifiers: Qualified Code(s): K92.2 - Gastrointestinal hemorrhage, unspecified; K92.2 - Gastrointestinal hemorrhage, unspecified (3) Cellulitis Code(s): L03.90 - CELLULITIS, UNSPECIFIED Qualifiers: Qualified Code(s): L03.114 - Cellulitis of left upper limb; L03.114 - Cellulitis of left upper limb (4) CAD (coronary artery disease) Code(s): I25.10 - ATHSCL HEART DISEASE OF [place] CORONARY ARTERY W/O ANG PCTRS Qualifiers: Qualified Code(s): I25.110 - Atherosclerotic heart disease of [place] coronary artery with unstable angina pectoris; I25.110 - Atherosclerotic heart disease of [place] coronary artery with unstable angina pectoris; I25.110 - Atherosclerotic heart disease of [place] coronary artery with unstable angina pectoris; I25.110 - Atherosclerotic heart disease of [place] coronary artery with unstable angina pectoris (5) Gout Code(s): M10.9 - GOUT, UNSPECIFIED (6) Hypertension Code(s): I10 - ESSENTIAL (PRIMARY) HYPERTENSION Qualifiers: Qualified Code(s): I10 - Essential (primary) hypertension; I10 - Essential (primary) hypertension; I10 - Essential (primary) hypertension (7) Anemia Code(s): D64.9 - ANEMIA, UNSPECIFIED Qualifiers: Qualified Code(s): D50.0 - Iron deficiency anemia secondary to blood loss (chronic); D50.0 - Iron deficiency anemia secondary to blood loss (chronic ) (8) Leukocytosis Code(s): D72.829 - ELEVATED WHITE BLOOD CELL COUNT, UNSPECIFIED (9) Respiratory arrest Code(s): R09.2 - RESPIRATORY ARREST
--- NOTE | 2017-03-30 13:43 | PATH ---
Cytology Non-Gynecological Report Patient Name: RACHELE GALAVIZ [facility]. Rec. #: [id number] /Age/Gender: 1945 (Age: 71) / M Account: [id number] Location: 4 SO PEDS/ADOL Taken: 03/27/2017 Received: 03/27/2017 Reported: 03/30/2017 Physicians: Altagracia Arthur M.D. Specimen(s) Received PSOAS COLLECTION Clinical History None given Final Diagnosis PSOAS COLLECTION, EVACUATION: SATISFACTORY FOR EVALUATION BUT LIMITED BY THE LACK OF AN EPITHELIAL COMPONENT. BENIGN (NO MALIGNANT CELLS IDENTIFIED). BLOOD AND RARE MACROPHAGES PRESENT. Comment: Recommend correlation with clinical and radiologic findings and follow up as clinically indicated. Electronically Signed Anupam Bolanos M.D. Gross Description Approximately 50 cc of bloody fluid received fixed in 50% alcohol. Two cytofunnels and one cellblock prepared.
--- NOTE | 2017-03-30 14:09 | PN ---
Progress Note (short form) - Note Progress Note: Renal Follow up for JOE Pt seen and examined at the bedside awake and alert no acute complaints making urine no sob, chest pain has some OLIVARES Vital Signs Temperature 98.1 F 03/30/17 09:55 Pulse Rate 79 03/30/17 09:55 Respiratory Rate 18 03/30/17 09:55 Blood Pressure 123/59 03/30/17 09:55 O2 Sat by Pulse Oximetry (%) 97 03/30/17 09:00 Intake & Output 03/27/17 03/28/17 03/29/17 03/30/17 23:59 23:59 23:59 23:59 Intake Total 300 250 800 500 Output Total 1650 2825 2120 900 Balance -1810 -8378 -1320 -400 Weight 259 lb 6.4 oz 253 lb 4 oz 252 lb 6.4 oz 252 lb 9.6 oz Gen: NAD CVS: RRR Lungs: CTA Abd: soft NT/ND Ext: 2+ edema in LE CBC, BMP 03/30/17 05:45 03/30/17 05:45 Current Medications Allopurinol (Zyloprim -) 100 mg PO DAILY [facility] Last Admin: 03/30/17 09:37 Dose: 100 mg Carvedilol (Coreg -) 3.125 mg PO BID [facility] Last Admin: 03/30/17 09:37 Dose: 3.125 mg Cholecalciferol (Vitamin D3 -) 2,000 unit PO DAILY [facility] Last Admin: 03/30/17 09:37 Dose: 2,000 unit Heparin Sodium (Porcine) (Heparin -) 5,000 unit SQ BID [facility] Last Admin: 03/30/17 09:39 Dose: 5,000 unit Hydrocortisone (Hytone 1% Cream -) 1 applic TP BID PRN PRN Reason: FOR ITCHING Last Admin: 03/29/17 08:44 Dose: 1 applic IV Flush (Picc Line Flush) 8 ml IVPUSH PRN PRN PRN Reason: Protocol Meropenem 500 mg/ Dextrose 100 mls @ 200 mls/hr IVPB Q12H [facility] Last Admin: 03/30/17 03:10 Dose: 200 mls/hr Insulin Aspart (Novolog Vial Sliding Scale -) 1 vial SQ TIDAC [facility] PRN Reason: Protocol Last Admin: 03/30/17 11:50 Dose: 4 units Lactulose (Cephulac (Oral Use)) 20 gm PO BID [facility] Last Admin: 03/30/17 09:36 Dose: 20 gm Ondansetron HCl (Zofran Injection) 4 mg IVPB Q8H PRN PRN Reason: NAUSEA Oxycodone HCl (Roxicodone -) 10 mg PO Q3H PRN PRN Reason: PAIN Last Admin: 03/30/17 09:37 Dose: 10 mg Pantoprazole Sodium (Protonix -) 40 mg PO DAILY [facility] Last Admin: 03/30/17 09:37 Dose: 40 mg Polyethylene Glycol (Miralax (For Daily Use) -) 17 gm PO DAILY [facility] Last Admin: 03/30/17 09:39 Dose: 17 gm Sevelamer Carbonate (Renvela -) 800 mg PO TIDCM [facility] Last Admin: 03/30/17 12:03 Dose: 800 mg Zinc Acetate/Diphenhydramine (Benadryl 2% Cream) 1 applic TP BID [facility] Last Admin: 03/30/17 09:37 Dose: 1 applic A/P 71 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 #Renal Failure with volume overload secondary to ATN BUN/Cr trend stable, pt is non-oliguric will defer any further dialysis at this time trend BUN/Cr and electrolytes Dose all meds for Cr Cl less then 15 no nsaids keep MAP > 65 #Anemia Trend CBC transfuse as per primary Aubrey Acharya DO Problem List - Problems (1) Cellulitis Code(s): L03.90 - CELLULITIS, UNSPECIFIED Qualifiers: Qualified Code(s): L03.114 - Cellulitis of left upper limb; L03.114 - Cellulitis of left upper limb (2) Acute renal failure (ARF) Code(s): N17.9 - ACUTE KIDNEY FAILURE, UNSPECIFIED Qualifiers: Qualified Code(s): N17.9 - Acute kidney failure, unspecified; N17.9 - Acute kidney failure, unspecified; N17.9 - Acute kidney failure, unspecified (3) CAD (coronary artery disease) Code(s): I25.10 - ATHSCL HEART DISEASE OF [place] CORONARY ARTERY W/O ANG PCTRS Qualifiers: Qualified Code(s): I25.110 - Atherosclerotic heart disease of [place] coronary artery with unstable angina pectoris; I25.110 - Atherosclerotic heart disease of [place] coronary artery with unstable angina pectoris; I25.110 - Atherosclerotic heart disease of [place] coronary artery with unstable angina pectoris; I25.110 - Atherosclerotic heart disease of [place] coronary artery with unstable angina pectoris (4) Hypertension Code(s): I10 - ESSENTIAL (PRIMARY) HYPERTENSION Qualifiers: Qualified Code(s): I10 - Essential (primary) hypertension; I10 - Essential (primary) hypertension; I10 - Essential (primary) hypertension (5) Gout Code(s): M10.9 - GOUT, UNSPECIFIED (6) Leukocytosis Code(s): D72.829 - ELEVATED WHITE BLOOD CELL COUNT, UNSPECIFIED
--- NOTE | 2017-03-30 19:17 | PN ---
Progress Note, Physician History of Present Illness: stable moving around wbc trending down passing good urine - Current Medication List Current Medications: Active Medications Allopurinol (Zyloprim -) 100 mg PO DAILY [facility] Last Admin: 03/30/17 09:37 Dose: 100 mg Carvedilol (Coreg -) 3.125 mg PO BID [facility] Last Admin: 03/30/17 09:37 Dose: 3.125 mg Cholecalciferol (Vitamin D3 -) 2,000 unit PO DAILY [facility] Last Admin: 03/30/17 09:37 Dose: 2,000 unit Heparin Sodium (Porcine) (Heparin -) 5,000 unit SQ BID [facility] Last Admin: 03/30/17 09:39 Dose: 5,000 unit Hydrocortisone (Hytone 1% Cream -) 1 applic TP BID PRN PRN Reason: FOR ITCHING Last Admin: 03/29/17 08:44 Dose: 1 applic IV Flush (Picc Line Flush) 8 ml IVPUSH PRN PRN PRN Reason: Protocol Insulin Aspart (Novolog Vial Sliding Scale -) 1 vial SQ TIDAC [facility] PRN Reason: Protocol Last Admin: 03/30/17 17:18 Dose: 2 units Lactulose (Cephulac (Oral Use)) 20 gm PO BID [facility] Last Admin: 03/30/17 09:36 Dose: 20 gm Ondansetron HCl (Zofran Injection) 4 mg IVPB Q8H PRN PRN Reason: NAUSEA Oxycodone HCl (Roxicodone -) 10 mg PO Q3H PRN PRN Reason: PAIN Last Admin: 03/30/17 17:22 Dose: 10 mg Pantoprazole Sodium (Protonix -) 40 mg PO DAILY [facility] Last Admin: 03/30/17 09:37 Dose: 40 mg Polyethylene Glycol (Miralax (For Daily Use) -) 17 gm PO DAILY [facility] Last Admin: 03/30/17 09:39 Dose: 17 gm Sevelamer Carbonate (Renvela -) 800 mg PO TIDCM [facility] Last Admin: 03/30/17 17:17 Dose: 800 mg Zinc Acetate/Diphenhydramine (Benadryl 2% Cream) 1 applic TP BID [facility] Last Admin: 03/30/17 09:37 Dose: 1 applic - Objective Vital Signs: Vital Signs Temperature 99.1 F 03/30/17 17:56 Pulse Rate 76 03/30/17 17:56 Respiratory Rate 18 03/30/17 17:56 Blood Pressure 117/54 03/30/17 17:56 O2 Sat by Pulse Oximetry (%) 97 03/30/17 18:18 Constitutional: Yes: No Distress, Calm HENT: Yes: Atraumatic, Normocephalic Cardiovascular: Yes: Regular Rate and Rhythm Respiratory: Yes: Regular, CTA Bilaterally Gastrointestinal: Yes: Normal Bowel Sounds, Soft Musculoskeletal: Yes: WNL Extremities: Yes: WNL Neurological: Yes: Alert, Oriented Psychiatric: Yes: Alert, Oriented Labs: CBC, BMP 03/30/17 05:45 03/30/17 05:45 INR, PTT INR 1.55 (0.82-1.09) H 03/26/17 09:04 Assessment/Plan Problem List - Problems (1) Acute renal failure (ARF) Code(s): N17.9 - ACUTE KIDNEY FAILURE, UNSPECIFIED Qualifiers: Qualified Code(s): N17.9 - Acute kidney failure, unspecified; N17.9 - Acute kidney failure, unspecified; N17.9 - Acute kidney failure, unspecified (2) GI bleed Code(s): K92.2 - GASTROINTESTINAL HEMORRHAGE, UNSPECIFIED Qualifiers: Qualified Code(s): K92.2 - Gastrointestinal hemorrhage, unspecified; K92.2 - Gastrointestinal hemorrhage, unspecified (3) Cellulitis Code(s): L03.90 - CELLULITIS, UNSPECIFIED Qualifiers: Qualified Code(s): L03.114 - Cellulitis of left upper limb; L03.114 - Cellulitis of left upper limb (4) CAD (coronary artery disease) Code(s): I25.10 - ATHSCL HEART DISEASE OF [place] CORONARY ARTERY W/O ANG PCTRS Qualifiers: Qualified Code(s): I25.110 - Atherosclerotic heart disease of [place] coronary artery with unstable angina pectoris; I25.110 - Atherosclerotic heart disease of [place] coronary artery with unstable angina pectoris; I25.110 - Atherosclerotic heart disease of [place] coronary artery with unstable angina pectoris; I25.110 - Atherosclerotic heart disease of [place] coronary artery with unstable angina pectoris (5) Gout Code(s): M10.9 - GOUT, UNSPECIFIED (6) Hypertension Code(s): I10 - ESSENTIAL (PRIMARY) HYPERTENSION Qualifiers: Qualified Code(s): I10 - Essential (primary) hypertension; I10 - Essential (primary) hypertension; I10 - Essential (primary) hypertension (7) Anemia Code(s): D64.9 - ANEMIA, UNSPECIFIED Qualifiers: Qualified Code(s): D50.0 - Iron deficiency anemia secondary to blood loss (chronic); D50.0 - Iron deficiency anemia secondary to blood loss (chronic ) (8) Leukocytosis Code(s): D72.829 - ELEVATED WHITE BLOOD CELL COUNT, UNSPECIFIED (9) Respiratory arrest Code(s): R09.2 - RESPIRATORY ARREST mssa bacteremia sepsis patient was transfused today overall doing well plan stopped abx now we will monitor for wbc overall doing well no new issues
[2017-03-31] MEDS: INSULIN SLIDING SCALE (NOVOLOG) 1 VIAL SQ SCH ×3 (06:14→17:16)
[2017-03-31] MEDS: oxyCODONE HCL 5 MG TABLET PO PRN ×3 (06:37→19:49)
[2017-03-31 07:35] LABS: BASOPHIL 0.5 % (0-2.0); EOSINOPHIL 16.9 % (0-4.5); MCH 29.9 pg (25.7-33.7); MCHC 33.8 g/dl (32.0-35.9); MEAN CELL VOLUME 88.6 fl (80-96); NEUTROPHILS 61.5 % (42.8-82.8); PLATELET COUNT 221 K/MM3 (134-434); RDW 19.5 % (11.9-15.9); WHITE BLOOD COUNT 11.6 K/mm3 (4.0-10.0)
[2017-03-31 07:53] LABS: ALBUMIN 1.6 g/dl (3.4-5.0); ANION GAP 14 (8-16); CALCIUM 8.5 mg/dL (8.5-10.1); CO2 28 mmol/L (21-32); GLUCOSE,RANDOM 123 mg/dL (74-106); MAGNESIUM 1.9 mg/dL (1.8-2.4); PHOSPHOROUS 5.3 mg/dL (2.5-4.9); SGOT/AST 37 U/L (15-37); SGPT/ALT 85 U/L (12-78)
[2017-03-31 07:55] LABS: ALK PHOS 157 U/L (45-117); BILIRUBIN,TOTAL 3.8 mg/dL (0.2-1.0); TOT PROT 5.2 g/dl (6.4-8.2)
[2017-03-31] MEDS: SEVELAMER CARBONATE 800 MG TAB (FP) PO SCH ×3 (08:26→17:16)
[2017-03-31] MEDS ORDERED: POTASSIUM CHLORIDE TABS 20 MEQ TABLET.ER (FP) PO ONE (09:48)
--- NOTE | 2017-03-31 10:04 | PN ---
Progress Note, Physician Chief Complaint: Events noted Left Psoas fluid collection S/P drain - feels better Awake and alert sitting in chair History of Present Illness: Patient was seen and examined. Chart was reviewed Denies chest pain, shortness of breath or palpitations As outlined above - Current Medication List Current Medications: Active Medications Allopurinol (Zyloprim -) 100 mg PO DAILY [facility] Last Admin: 03/30/17 09:37 Dose: 100 mg Carvedilol (Coreg -) 3.125 mg PO BID [facility] Last Admin: 03/30/17 21:44 Dose: 3.125 mg Cholecalciferol (Vitamin D3 -) 2,000 unit PO DAILY [facility] Last Admin: 03/30/17 09:37 Dose: 2,000 unit Heparin Sodium (Porcine) (Heparin -) 5,000 unit SQ BID [facility] Last Admin: 03/30/17 21:44 Dose: 5,000 unit Hydrocortisone (Hytone 1% Cream -) 1 applic TP BID PRN PRN Reason: FOR ITCHING Last Admin: 03/29/17 08:44 Dose: 1 applic IV Flush (Picc Line Flush) 8 ml IVPUSH PRN PRN PRN Reason: Protocol Insulin Aspart (Novolog Vial Sliding Scale -) 1 vial SQ TIDAC [facility] PRN Reason: Protocol Last Admin: 03/31/17 06:14 Dose: Not Given Lactulose (Cephulac (Oral Use)) 20 gm PO BID [facility] Last Admin: 03/30/17 21:44 Dose: Not Given Ondansetron HCl (Zofran Injection) 4 mg IVPB Q8H PRN PRN Reason: NAUSEA Oxycodone HCl (Roxicodone -) 10 mg PO Q3H PRN PRN Reason: PAIN Last Admin: 03/31/17 06:37 Dose: 10 mg Pantoprazole Sodium (Protonix -) 40 mg PO DAILY [facility] Last Admin: 03/30/17 09:37 Dose: 40 mg Polyethylene Glycol (Miralax (For Daily Use) -) 17 gm PO DAILY [facility] Last Admin: 03/30/17 09:39 Dose: 17 gm Potassium Chloride (K-Dur -) 40 meq PO ONCE ONE Stop: 03/31/17 09:49 Sevelamer Carbonate (Renvela -) 800 mg PO TIDCM [facility] Last Admin: 03/31/17 08:26 Dose: 800 mg Zinc Acetate/Diphenhydramine (Benadryl 2% Cream) 1 applic TP BID [facility] Last Admin: 03/30/17 21:43 Dose: 1 applic - Objective Vital Signs: Vital Signs Temperature 98.4 F 03/31/17 06:00 Pulse Rate 79 03/31/17 06:00 Respiratory Rate 20 03/31/17 06:00 Blood Pressure 123/58 03/31/17 06:00 O2 Sat by Pulse Oximetry (%) 97 03/30/17 22:00 Neck: Yes: Supple Cardiovascular: Yes: Regular Rate and Rhythm, S1, S2 Respiratory: Yes: Diminished Gastrointestinal: Yes: Normal Bowel Sounds, Soft. No: Tenderness Edema: Yes Additional Findings/Remarks: - Review of Systems Constitutional: no symptoms reported Respiratory: denies: Cough denies: Sputum Production Cardiovascular: denies: chest pain, SOB, palpitations Gastrointestinal: denies Nausea, Vomiting, Diarrhea, Constipation or Abdominal Pain Genitourinary: No symptoms reported Musculoskeletal: No symptoms reported Endocrine: No symptoms reported Labs: CBC, BMP 03/31/17 06:00 Problem List - Problems (1) Abnormal liver enzymes Code(s): R74.8 - ABNORMAL LEVELS OF OTHER SERUM ENZYMES (2) Acute renal failure (ARF) Code(s): N17.9 - ACUTE KIDNEY FAILURE, UNSPECIFIED Qualifiers: Qualified Code(s): N17.9 - Acute kidney failure, unspecified; N17.9 - Acute kidney failure, unspecified; N17.9 - Acute kidney failure, unspecified (3) Anemia Code(s): D64.9 - ANEMIA, UNSPECIFIED Qualifiers: Qualified Code(s): D50.0 - Iron deficiency anemia secondary to blood loss (chronic); D50.0 - Iron deficiency anemia secondary to blood loss (chronic ) (4) CAD (coronary artery disease) Code(s): I25.10 - ATHSCL HEART DISEASE OF [place] CORONARY ARTERY W/O ANG PCTRS Qualifiers: Qualified Code(s): I25.110 - Atherosclerotic heart disease of [place] coronary artery with unstable angina pectoris; I25.110 - Atherosclerotic heart disease of [place] coronary artery with unstable angina pectoris; I25.110 - Atherosclerotic heart disease of [place] coronary artery with unstable angina pectoris; I25.110 - Atherosclerotic heart disease of [place] coronary artery with unstable angina pectoris (5) Cellulitis Code(s): L03.90 - CELLULITIS, UNSPECIFIED Qualifiers: Qualified Code(s): L03.114 - Cellulitis of left upper limb; L03.114 - Cellulitis of left upper limb (6) Hyperlipidemia Code(s): E78.5 - HYPERLIPIDEMIA, UNSPECIFIED Qualifiers: Qualified Code(s): E78.00 - Pure hypercholesterolemia, unspecified; E78.00 - Pure hypercholesterolemia, unspecified; E78.00 - Pure hypercholesterolemia, unspecified; E78.0 - Pure hypercholesterolemia (7) Hypertension Code(s): I10 - ESSENTIAL (PRIMARY) HYPERTENSION Qualifiers: Qualified Code(s): I10 - Essential (primary) hypertension; I10 - Essential (primary) hypertension; I10 - Essential (primary) hypertension (8) MSSA (methicillin susceptible Staphylococcus aureus) infection Code(s): A49.01 - METHICILLIN SUSCEP STAPH INFECTION, UNSP SITE (9) Respiratory arrest before cardiac arrest Code(s): I46.9 - CARDIAC ARREST, CAUSE UNSPECIFIED R09.2 - RESPIRATORY ARREST (10) Hx of CABG Code(s): Z95.1 - PRESENCE OF AORTOCORONARY BYPASS GRAFT Assessment/Plan 1. Cardiopulmonary arrest with PEA (Pulseless Electrical Activity) post resuscitation and post respiratory failure 2. Abnormal EKG, unclear underlying atrial rhythm now resolved most likely related profound metabolic/lactic acidosis - resolved 3. CAD post [place]/CABG angina pectoris with evidence of demand ischemic injury in context of acute pulmonary edema - resolved 4. Moderate LV systolic dysfunction with acute class III-IV NYHA classification LV failure - improved 5. Acute renal failure now off HD 6. Anemia, history of GI bleed related to peptic ulcer disease, post transfusion 7. History of HTN - 8. DM 9. Hypercholesterolemia 10. Cellulitis with recent MSSA sepsis syndrome with septic shock and now with left psoas collection s/p drainage 11. Hyponatremia and hypokalemia 12. Abnormal LFTs PLAN: 1. Continue Heparin SQ 2. Continue Demadex and monitor I/O and renal function. Monitor electrolytes 3. Continue Coreg with uptitration as tolerated. Restart Statin once LFT recovers 4. Transfusion PRN to maintain Hgb equal or > 8.0 5. PT and eventual rehab Follow up in office once discharged Jonnathan Nogueira MD
[2017-03-31] MEDS: CHOLECALCIFEROL (VITAMIN D3) 1,000 UNIT TABLET (FP) PO SCH (10:37)
[2017-03-31] MEDS: PANTOPRAZOLE 40 MG TABLET (FP) PO SCH (10:37)
[2017-03-31] MEDS: CARVEDILOL 3.125 MG TABLET (FP) PO SCH ×2 (10:37→22:57)
[2017-03-31] MEDS: ALLOPURINOL 100 MG TABLET (FP) PO SCH (10:37)
[2017-03-31] MEDS: HEPARIN NA (PORCINE) 5,000 UNITS/ML 1ML VIAL SQ SCH ×2 (10:38→22:57)
[2017-03-31] MEDS: POLYETHYLENE GLYCOL 3350 119 GM BTL PO SCH (10:45)
[2017-03-31] MEDS: LACTULOSE 20 GM/30 ML UDC (FOR ORAL USE ONLY) PO SCH ×2 (10:45→22:56)
--- NOTE | 2017-03-31 12:38 | PN ---
Progress Note, Physician Chief Complaint: Improving but still some fatigue after being up for 1 hour in the chair. History of Present Illness: Patient with MSSA sepsis from acute cellulitis of the hand, wrist and forearm leading to acute renal failure, a respiratory arrest and acute cardiac event. He has also had acute blood loss from GI bleed and Acute psoas hematoma and ischemic liver injury with improving liver chemistries but Bilirubin still elevated. Received 1 unit of blood yesterday and Hb only went from 7.2 7o 7.7 GM today. Will follow. Creatinine stable at 3 but BUN 51. No dialysis for 4 days. Antibiotics also D/Luis as was torsemide. Walking with assist. - Current Medication List Current Medications: Active Medications Allopurinol (Zyloprim -) 100 mg PO DAILY [facility] Last Admin: 03/31/17 10:37 Dose: 100 mg Carvedilol (Coreg -) 3.125 mg PO BID [facility] Last Admin: 03/31/17 10:37 Dose: 3.125 mg Cholecalciferol (Vitamin D3 -) 2,000 unit PO DAILY [facility] Last Admin: 03/31/17 10:37 Dose: 2,000 unit Heparin Sodium (Porcine) (Heparin -) 5,000 unit SQ BID [facility] Last Admin: 03/31/17 10:38 Dose: 5,000 unit Hydrocortisone (Hytone 1% Cream -) 1 applic TP BID PRN PRN Reason: FOR ITCHING Last Admin: 03/29/17 08:44 Dose: 1 applic IV Flush (Picc Line Flush) 8 ml IVPUSH PRN PRN PRN Reason: Protocol Insulin Aspart (Novolog Vial Sliding Scale -) 1 vial SQ TIDAC [facility] PRN Reason: Protocol Last Admin: 03/31/17 11:51 Dose: 2 units Lactulose (Cephulac (Oral Use)) 20 gm PO BID [facility] Last Admin: 03/31/17 10:45 Dose: Not Given Ondansetron HCl (Zofran Injection) 4 mg IVPB Q8H PRN PRN Reason: NAUSEA Oxycodone HCl (Roxicodone -) 10 mg PO Q3H PRN PRN Reason: PAIN Last Admin: 03/31/17 10:44 Dose: 10 mg Pantoprazole Sodium (Protonix -) 40 mg PO DAILY [facility] Last Admin: 03/31/17 10:37 Dose: 40 mg Polyethylene Glycol (Miralax (For Daily Use) -) 17 gm PO DAILY [facility] Last Admin: 03/31/17 10:45 Dose: 17 gm Sevelamer Carbonate (Renvela -) 800 mg PO TIDCM [facility] Last Admin: 03/31/17 11:51 Dose: 800 mg Zinc Acetate/Diphenhydramine (Benadryl 2% Cream) 1 applic TP BID [facility] Last Admin: 03/31/17 11:51 Dose: 1 applic - Objective Vital Signs: Vital Signs Temperature 98.4 F 03/31/17 06:00 Pulse Rate 75 03/31/17 10:03 Respiratory Rate 20 03/31/17 06:00 Blood Pressure 123/58 03/31/17 06:00 O2 Sat by Pulse Oximetry (%) 98 03/31/17 10:03 Constitutional: Yes: Calm Eyes: Yes: Sclera Icterus Cardiovascular: Yes: Regular Rate and Rhythm Respiratory: Yes: Diminished (at bases.) Gastrointestinal: Yes: Soft, Abdomen, Obese. No: Tenderness Musculoskeletal: Yes: Muscle Pain (left hip area) Edema: LLE: 2+, RLE: 2+ Neurological: Yes: Alert, Oriented Labs: CBC, BMP 03/31/17 06:00 03/31/17 06:00 INR, PTT INR 1.55 (0.82-1.09) H 03/26/17 09:04 Problem List - Problems (1) Acute renal failure (ARF) Assessment/Plan: BUN 51; Creatinine 4. Increased urination today 1500 cc so far. Seen by renal MD. Code(s): N17.9 - ACUTE KIDNEY FAILURE, UNSPECIFIED Qualifiers: Qualified Code(s): N17.9 - Acute kidney failure, unspecified; N17.9 - Acute kidney failure, unspecified; N17.9 - Acute kidney failure, unspecified (2) GI bleed Assessment/Plan: Stool guiac + on 03/29 but negative on 03/30. Code(s): K92.2 - GASTROINTESTINAL HEMORRHAGE, UNSPECIFIED Qualifiers: Qualified Code(s): K92.2 - Gastrointestinal hemorrhage, unspecified; K92.2 - Gastrointestinal hemorrhage, unspecified (3) Cellulitis Assessment/Plan: Resolved but still stiffness of hand; exercising with rubber ball daily. Code(s): L03.90 - CELLULITIS, UNSPECIFIED Qualifiers: Qualified Code(s): L03.114 - Cellulitis of left upper limb; L03.114 - Cellulitis of left upper limb (4) CAD (coronary artery disease) Assessment/Plan: Had +troponin and EKG changes post arrest. Code(s): I25.10 - ATHSCL HEART DISEASE OF [place] CORONARY ARTERY W/O ANG PCTRS Qualifiers: Qualified Code(s): I25.110 - Atherosclerotic heart disease of [place] coronary artery with unstable angina pectoris; I25.110 - Atherosclerotic heart disease of [place] coronary artery with unstable angina pectoris; I25.110 - Atherosclerotic heart disease of [place] coronary artery with unstable angina pectoris; I25.110 - Atherosclerotic heart disease of [place] coronary artery with unstable angina pectoris (5) Gout Code(s): M10.9 - GOUT, UNSPECIFIED (6) Hypertension Assessment/Plan: BP stable Code(s): I10 - ESSENTIAL (PRIMARY) HYPERTENSION Qualifiers: Qualified Code(s): I10 - Essential (primary) hypertension; I10 - Essential (primary) hypertension; I10 - Essential (primary) hypertension (7) Anemia Assessment/Plan: Hb 7.2 to 7.7 after 1 unit packed cells. Code(s): D64.9 - ANEMIA, UNSPECIFIED Qualifiers: Qualified Code(s): D50.0 - Iron deficiency anemia secondary to blood loss (chronic); D50.0 - Iron deficiency anemia secondary to blood loss (chronic ) (8) Leukocytosis Assessment/Plan: Down to 11,600. Code(s): D72.829 - ELEVATED WHITE BLOOD CELL COUNT, UNSPECIFIED (9) Respiratory arrest Assessment/Plan: Due to fluid overload. resolved. Code(s): R09.2 - RESPIRATORY ARREST
--- NOTE | 2017-03-31 14:56 | PN ---
Progress Note, Physician History of Present Illness: stable moving around wbc trending down passing good urine - Current Medication List Current Medications: Active Medications Allopurinol (Zyloprim -) 100 mg PO DAILY [facility] Last Admin: 03/31/17 10:37 Dose: 100 mg Carvedilol (Coreg -) 3.125 mg PO BID [facility] Last Admin: 03/31/17 10:37 Dose: 3.125 mg Cholecalciferol (Vitamin D3 -) 2,000 unit PO DAILY [facility] Last Admin: 03/31/17 10:37 Dose: 2,000 unit Heparin Sodium (Porcine) (Heparin -) 5,000 unit SQ BID [facility] Last Admin: 03/31/17 10:38 Dose: 5,000 unit IV Flush (Picc Line Flush) 8 ml IVPUSH PRN PRN PRN Reason: Protocol Insulin Aspart (Novolog Vial Sliding Scale -) 1 vial SQ TIDAC [facility] PRN Reason: Protocol Last Admin: 03/31/17 11:51 Dose: 2 units Lactulose (Cephulac (Oral Use)) 20 gm PO BID [facility] Last Admin: 03/31/17 10:45 Dose: Not Given Ondansetron HCl (Zofran Injection) 4 mg IVPB Q8H PRN PRN Reason: NAUSEA Oxycodone HCl (Roxicodone -) 10 mg PO Q3H PRN PRN Reason: PAIN Last Admin: 03/31/17 10:44 Dose: 10 mg Pantoprazole Sodium (Protonix -) 40 mg PO DAILY [facility] Last Admin: 03/31/17 10:37 Dose: 40 mg Polyethylene Glycol (Miralax (For Daily Use) -) 17 gm PO DAILY [facility] Last Admin: 03/31/17 10:45 Dose: 17 gm Sevelamer Carbonate (Renvela -) 800 mg PO TIDCM [facility] Last Admin: 03/31/17 11:51 Dose: 800 mg Zinc Acetate/Diphenhydramine (Benadryl 2% Cream) 1 applic TP BID [facility] Last Admin: 03/31/17 11:51 Dose: 1 applic - Objective Vital Signs: Vital Signs Temperature 98.4 F 03/31/17 06:00 Pulse Rate 75 03/31/17 10:03 Respiratory Rate 20 03/31/17 09:00 Blood Pressure 123/58 03/31/17 06:00 O2 Sat by Pulse Oximetry (%) 98 03/31/17 10:03 Constitutional: Yes: No Distress, Calm Cardiovascular: Yes: Regular Rate and Rhythm Respiratory: Yes: Regular, CTA Bilaterally Gastrointestinal: Yes: Normal Bowel Sounds, Soft Musculoskeletal: Yes: WNL Extremities: Yes: WNL Neurological: Yes: Alert, Oriented Psychiatric: Yes: Alert, Oriented Labs: CBC, BMP 03/31/17 06:00 03/31/17 06:00 INR, PTT INR 1.55 (0.82-1.09) H 03/26/17 09:04 Assessment/Plan Problem List - Problems (1) Acute renal failure (ARF) Code(s): N17.9 - ACUTE KIDNEY FAILURE, UNSPECIFIED Qualifiers: Qualified Code(s): N17.9 - Acute kidney failure, unspecified; N17.9 - Acute kidney failure, unspecified; N17.9 - Acute kidney failure, unspecified (2) GI bleed Code(s): K92.2 - GASTROINTESTINAL HEMORRHAGE, UNSPECIFIED Qualifiers: Qualified Code(s): K92.2 - Gastrointestinal hemorrhage, unspecified; K92.2 - Gastrointestinal hemorrhage, unspecified (3) Cellulitis Code(s): L03.90 - CELLULITIS, UNSPECIFIED Qualifiers: Qualified Code(s): L03.114 - Cellulitis of left upper limb; L03.114 - Cellulitis of left upper limb (4) CAD (coronary artery disease) Code(s): I25.10 - ATHSCL HEART DISEASE OF [place] CORONARY ARTERY W/O ANG PCTRS Qualifiers: Qualified Code(s): I25.110 - Atherosclerotic heart disease of [place] coronary artery with unstable angina pectoris; I25.110 - Atherosclerotic heart disease of [place] coronary artery with unstable angina pectoris; I25.110 - Atherosclerotic heart disease of [place] coronary artery with unstable angina pectoris; I25.110 - Atherosclerotic heart disease of [place] coronary artery with unstable angina pectoris (5) Gout Code(s): M10.9 - GOUT, UNSPECIFIED (6) Hypertension Code(s): I10 - ESSENTIAL (PRIMARY) HYPERTENSION Qualifiers: Qualified Code(s): I10 - Essential (primary) hypertension; I10 - Essential (primary) hypertension; I10 - Essential (primary) hypertension (7) Anemia Code(s): D64.9 - ANEMIA, UNSPECIFIED Qualifiers: Qualified Code(s): D50.0 - Iron deficiency anemia secondary to blood loss (chronic); D50.0 - Iron deficiency anemia secondary to blood loss (chronic ) (8) Leukocytosis Code(s): D72.829 - ELEVATED WHITE BLOOD CELL COUNT, UNSPECIFIED (9) Respiratory arrest Code(s): R09.2 - RESPIRATORY ARREST mssa bacteremia sepsis patient was transfused today overall doing well plan continue to monitor see how wbc tends rest as per primary team patient doing well
--- NOTE | 2017-03-31 16:07 | PN ---
Progress Note (short form) - Note Progress Note: Renal Follow up for JOE Pt seen and examined at the bedside no acute complaints today making urine no sob, chest pain legs remain swollen Vital Signs Temperature 98.2 F 03/31/17 15:15 Pulse Rate 80 03/31/17 15:15 Respiratory Rate 20 03/31/17 15:15 Blood Pressure 124/59 03/31/17 15:15 O2 Sat by Pulse Oximetry (%) 98 03/31/17 10:03 Intake & Output 03/28/17 03/29/17 03/30/17 03/31/17 23:59 23:59 23:59 23:59 Intake Total 528 465 8242 Output Total 2825 2120 2790 1100 Balance -8833 -4471 -3707 -1100 Weight 253 lb 4 oz 252 lb 6.4 oz 252 lb 9.6 oz 253 lb Gen: NAD CVS: RRR Lungs: CTA Abd: soft NT/ND Ext: 2+ edema in LE CBC, BMP 03/31/17 06:00 03/31/17 06:00 Current Medications Allopurinol (Zyloprim -) 100 mg PO DAILY [facility] Last Admin: 03/31/17 10:37 Dose: 100 mg Carvedilol (Coreg -) 3.125 mg PO BID [facility] Last Admin: 03/31/17 10:37 Dose: 3.125 mg Cholecalciferol (Vitamin D3 -) 2,000 unit PO DAILY [facility] Last Admin: 03/31/17 10:37 Dose: 2,000 unit Heparin Sodium (Porcine) (Heparin -) 5,000 unit SQ BID [facility] Last Admin: 03/31/17 10:38 Dose: 5,000 unit IV Flush (Picc Line Flush) 8 ml IVPUSH PRN PRN PRN Reason: Protocol Insulin Aspart (Novolog Vial Sliding Scale -) 1 vial SQ TIDAC [facility] PRN Reason: Protocol Last Admin: 03/31/17 11:51 Dose: 2 units Lactulose (Cephulac (Oral Use)) 20 gm PO BID [facility] Last Admin: 03/31/17 10:45 Dose: Not Given Ondansetron HCl (Zofran Injection) 4 mg IVPB Q8H PRN PRN Reason: NAUSEA Oxycodone HCl (Roxicodone -) 10 mg PO Q3H PRN PRN Reason: PAIN Last Admin: 03/31/17 10:44 Dose: 10 mg Pantoprazole Sodium (Protonix -) 40 mg PO DAILY [facility] Last Admin: 03/31/17 10:37 Dose: 40 mg Polyethylene Glycol (Miralax (For Daily Use) -) 17 gm PO DAILY [facility] Last Admin: 03/31/17 10:45 Dose: 17 gm Sevelamer Carbonate (Renvela -) 800 mg PO TIDCM [facility] Last Admin: 03/31/17 11:51 Dose: 800 mg Zinc Acetate/Diphenhydramine (Benadryl 2% Cream) 1 applic TP BID [facility] Last Admin: 03/31/17 11:51 Dose: 1 applic A/P 71 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 #Renal Failure with volume overload secondary to ATN Renal function improving BUN/Cr are stable pt is making a good amount of urine goal is to keep pt net negative as he has volume overload can plan to remove dialysis catheter no diuretics for now Aubrey Marck FLORES Problem List - Problems (1) Cellulitis Code(s): L03.90 - CELLULITIS, UNSPECIFIED Qualifiers: Qualified Code(s): L03.114 - Cellulitis of left upper limb; L03.114 - Cellulitis of left upper limb (2) Acute renal failure (ARF) Code(s): N17.9 - ACUTE KIDNEY FAILURE, UNSPECIFIED Qualifiers: Qualified Code(s): N17.9 - Acute kidney failure, unspecified; N17.9 - Acute kidney failure, unspecified; N17.9 - Acute kidney failure, unspecified (3) CAD (coronary artery disease) Code(s): I25.10 - ATHSCL HEART DISEASE OF [place] CORONARY ARTERY W/O ANG PCTRS Qualifiers: Qualified Code(s): I25.110 - Atherosclerotic heart disease of [place] coronary artery with unstable angina pectoris; I25.110 - Atherosclerotic heart disease of [place] coronary artery with unstable angina pectoris; I25.110 - Atherosclerotic heart disease of [place] coronary artery with unstable angina pectoris; I25.110 - Atherosclerotic heart disease of [place] coronary artery with unstable angina pectoris (4) Hypertension Code(s): I10 - ESSENTIAL (PRIMARY) HYPERTENSION Qualifiers: Qualified Code(s): I10 - Essential (primary) hypertension; I10 - Essential (primary) hypertension; I10 - Essential (primary) hypertension (5) Gout Code(s): M10.9 - GOUT, UNSPECIFIED (6) Leukocytosis Code(s): D72.829 - ELEVATED WHITE BLOOD CELL COUNT, UNSPECIFIED
--- NOTE | 2017-03-31 19:37 | PN ---
Progress Note (short form) - Note Progress Note: VAscular Surgery Pt seen and examined. Will remove PC in am. Jarad Forrester DO
[2017-04-01] MEDS: INSULIN SLIDING SCALE (NOVOLOG) 1 VIAL SQ SCH ×3 (06:00→17:26)
[2017-04-01] MEDS: oxyCODONE HCL 5 MG TABLET PO PRN ×3 (06:02→17:33)
[2017-04-01 07:26] LABS: BASOPHIL 0.5 % (0-2.0); EOSINOPHIL 22.1 % (0-4.5); MCH 30.1 pg (25.7-33.7); MCHC 33.8 g/dl (32.0-35.9); MEAN CELL VOLUME 89.1 fl (80-96); MEAN PLT VOLUME 7.9 fl (7.5-11.1); NEUTROPHILS 54.2 % (42.8-82.8); PLATELET COUNT 214 K/MM3 (134-434); RDW 19.6 % (11.9-15.9); WHITE BLOOD COUNT 10.4 K/mm3 (4.0-10.0)
[2017-04-01 07:33] LABS: ANION GAP 12 (8-16); CALCIUM 8.9 mg/dL (8.5-10.1); CO2 29 mmol/L (21-32); GLUCOSE,RANDOM 140 mg/dL (74-106)
[2017-04-01 07:36] LABS: CREATININE 3.9 mg/dL (0.7-1.3); PHOSPHOROUS 5.1 mg/dL (2.5-4.9)
[2017-04-01] MEDS: SEVELAMER CARBONATE 800 MG TAB (FP) PO SCH ×3 (08:46→17:26)
--- NOTE | 2017-04-01 08:58 | PN ---
Progress Note (short form) - Note Progress Note: Patient sitting up eating breakfast. More urine output over the last 12hrs. Some SOB only on movement. Slight pruritis. No chest pain. Moving bowels. Walks + PT and . On Exam: Vital Signs Temp 98.2 F 04/01/17 06:00 Pulse 80 04/01/17 06:00 Resp 18 04/01/17 06:00 BP 133/59 04/01/17 06:00 Pulse Ox 98 03/31/17 21:00 Intake & Output 03/31/17 03/31/17 04/01/17 11:59 23:59 11:59 Intake Total 130 Output Total 500 1625 1000 Balance -500 -1495 -1000 Weight 253 lb 256 lb 3.2 oz Intake: IV 10 r.fa #22 03/28/17 10 Oral 120 Output: Urine 500 1625 1000 Void 500 1625 1000 Other: Voiding Method Urinal Urinal Bowel Movement No No Weight Measurement Method Standing Scale Standing Scale Alert Chest: Decreased breath sounds at bases Cor Reg Abd: Distended; nontender Ext: 2-3+ edema Abnormal Lab Results 03/31/17 04/01/17 04/01/17 06:00 05:50 05:50 WBC 11.6 H 10.4 H RBC 2.57 L 2.62 L Hgb 7.7 L 7.9 L Hct 22.8 L 23.3 L RDW 19.5 H 19.6 H Eosinophils % 16.9 H 22.1 H* Chloride 95 L BUN 52 H Creatinine 3.9 H Random Glucose 140 H Phosphorus 5.1 H IMP: Sepsis due to MSSA with acute renal failure resolvung currently off dialysis ASHD Liver failure acute post arrest slowly resolving S/P CABG X2 Respiratory Arrest Acute Cardiac event now stable GI Bleed with blood transfusions Plan: F/U Lab PT Stool Guiac Renal MD F/U ??Plan: SNF post hospital Problem List - Problems (1) Acute renal failure (ARF) Code(s): N17.9 - ACUTE KIDNEY FAILURE, UNSPECIFIED Qualifiers: Qualified Code(s): N17.9 - Acute kidney failure, unspecified; N17.9 - Acute kidney failure, unspecified; N17.9 - Acute kidney failure, unspecified (2) GI bleed Code(s): K92.2 - GASTROINTESTINAL HEMORRHAGE, UNSPECIFIED Qualifiers: Qualified Code(s): K92.2 - Gastrointestinal hemorrhage, unspecified; K92.2 - Gastrointestinal hemorrhage, unspecified (3) Cellulitis Code(s): L03.90 - CELLULITIS, UNSPECIFIED Qualifiers: Qualified Code(s): L03.114 - Cellulitis of left upper limb; L03.114 - Cellulitis of left upper limb (4) CAD (coronary artery disease) Code(s): I25.10 - ATHSCL HEART DISEASE OF [place] CORONARY ARTERY W/O ANG PCTRS Qualifiers: Qualified Code(s): I25.110 - Atherosclerotic heart disease of [place] coronary artery with unstable angina pectoris; I25.110 - Atherosclerotic heart disease of [place] coronary artery with unstable angina pectoris; I25.110 - Atherosclerotic heart disease of [place] coronary artery with unstable angina pectoris; I25.110 - Atherosclerotic heart disease of [place] coronary artery with unstable angina pectoris (5) Gout Code(s): M10.9 - GOUT, UNSPECIFIED (6) Hypertension Code(s): I10 - ESSENTIAL (PRIMARY) HYPERTENSION Qualifiers: Qualified Code(s): I10 - Essential (primary) hypertension; I10 - Essential (primary) hypertension; I10 - Essential (primary) hypertension (7) Anemia Code(s): D64.9 - ANEMIA, UNSPECIFIED Qualifiers: Qualified Code(s): D50.0 - Iron deficiency anemia secondary to blood loss (chronic); D50.0 - Iron deficiency anemia secondary to blood loss (chronic ) (8) Leukocytosis Code(s): D72.829 - ELEVATED WHITE BLOOD CELL COUNT, UNSPECIFIED (9) Respiratory arrest Code(s): R09.2 - RESPIRATORY ARREST
[2017-04-01] MEDS ORDERED: LIDOCAINE HCL 1%, 10 MG/ML (20ML VIAL) ONE (09:43)
[2017-04-01] MEDS: LACTULOSE 20 GM/30 ML UDC (FOR ORAL USE ONLY) PO SCH ×2 (09:46→22:28)
[2017-04-01] MEDS: CHOLECALCIFEROL (VITAMIN D3) 1,000 UNIT TABLET (FP) PO SCH (09:47)
[2017-04-01] MEDS: ALLOPURINOL 100 MG TABLET (FP) PO SCH (09:47)
[2017-04-01] MEDS: POLYETHYLENE GLYCOL 3350 119 GM BTL PO SCH (09:47)
[2017-04-01] MEDS: CARVEDILOL 3.125 MG TABLET (FP) PO SCH ×2 (09:47→22:27)
[2017-04-01] MEDS: HEPARIN NA (PORCINE) 5,000 UNITS/ML 1ML VIAL SQ SCH ×2 (09:47→22:27)
[2017-04-01] MEDS: PANTOPRAZOLE 40 MG TABLET (FP) PO SCH (09:50)
--- NOTE | 2017-04-01 10:07 | PN ---
Progress Note (short form) - Note Progress Note: Vascular Surgery Pt seen and examined. Right IJ permacath removed. no issues. cont present care. Jarad jefferson DO
--- NOTE | 2017-04-01 11:15 | PN ---
Progress Note, Physician History of Present Illness: Remains comfortable on NC, hemodynamically stable. Diuresing well off HD and Demadex. - Current Medication List Current Medications: Active Medications Allopurinol (Zyloprim -) 100 mg PO DAILY [facility] Last Admin: 04/01/17 09:47 Dose: 100 mg Carvedilol (Coreg -) 3.125 mg PO BID [facility] Last Admin: 04/01/17 09:47 Dose: 3.125 mg Cholecalciferol (Vitamin D3 -) 2,000 unit PO DAILY [facility] Last Admin: 04/01/17 09:47 Dose: 2,000 unit Heparin Sodium (Porcine) (Heparin -) 5,000 unit SQ BID [facility] Last Admin: 04/01/17 09:47 Dose: 5,000 unit IV Flush (Picc Line Flush) 8 ml IVPUSH PRN PRN PRN Reason: Protocol Insulin Aspart (Novolog Vial Sliding Scale -) 1 vial SQ TIDAC [facility] PRN Reason: Protocol Last Admin: 04/01/17 06:00 Dose: Not Given Lactulose (Cephulac (Oral Use)) 20 gm PO BID [facility] Last Admin: 04/01/17 09:46 Dose: 20 gm Ondansetron HCl (Zofran Injection) 4 mg IVPB Q8H PRN PRN Reason: NAUSEA Oxycodone HCl (Roxicodone -) 10 mg PO Q3H PRN PRN Reason: PAIN Last Admin: 04/01/17 09:54 Dose: 10 mg Pantoprazole Sodium (Protonix -) 40 mg PO DAILY [facility] Last Admin: 04/01/17 09:50 Dose: 40 mg Polyethylene Glycol (Miralax (For Daily Use) -) 17 gm PO DAILY [facility] Last Admin: 04/01/17 09:47 Dose: 17 gm Sevelamer Carbonate (Renvela -) 800 mg PO TIDCM [facility] Last Admin: 04/01/17 08:46 Dose: 800 mg Zinc Acetate/Diphenhydramine (Benadryl 2% Cream) 1 applic TP BID [facility] Last Admin: 04/01/17 09:46 Dose: 1 applic - Objective Vital Signs: Vital Signs Temperature 98.4 F 04/01/17 10:00 Pulse Rate 73 04/01/17 10:00 Respiratory Rate 17 04/01/17 10:00 Blood Pressure 126/60 04/01/17 10:00 O2 Sat by Pulse Oximetry (%) 98 03/31/17 21:00 Constitutional: Yes: No Distress, Calm Neck: Yes: Supple Cardiovascular: Yes: Regular Rate and Rhythm Respiratory: Yes: Regular, Diminished, On Nasal O2 Gastrointestinal: Yes: Normal Bowel Sounds, Soft Edema: Yes Edema: LLE: 1+, RLE: 1+ Labs: CBC, BMP 04/01/17 05:50 04/01/17 05:50 INR, PTT INR 1.55 (0.82-1.09) H 03/26/17 09:04 Problem List - Problems (1) Acute renal failure (ARF) Code(s): N17.9 - ACUTE KIDNEY FAILURE, UNSPECIFIED Qualifiers: Qualified Code(s): N17.9 - Acute kidney failure, unspecified; N17.9 - Acute kidney failure, unspecified; N17.9 - Acute kidney failure, unspecified (2) CAD (coronary artery disease) Code(s): I25.10 - ATHSCL HEART DISEASE OF [place] CORONARY ARTERY W/O ANG PCTRS Qualifiers: Qualified Code(s): I25.110 - Atherosclerotic heart disease of [place] coronary artery with unstable angina pectoris; I25.110 - Atherosclerotic heart disease of [place] coronary artery with unstable angina pectoris; I25.110 - Atherosclerotic heart disease of [place] coronary artery with unstable angina pectoris; I25.110 - Atherosclerotic heart disease of [place] coronary artery with unstable angina pectoris (3) Cellulitis Code(s): L03.90 - CELLULITIS, UNSPECIFIED Qualifiers: Qualified Code(s): L03.114 - Cellulitis of left upper limb; L03.114 - Cellulitis of left upper limb (4) GI bleed Code(s): K92.2 - GASTROINTESTINAL HEMORRHAGE, UNSPECIFIED Qualifiers: Qualified Code(s): K92.2 - Gastrointestinal hemorrhage, unspecified; K92.2 - Gastrointestinal hemorrhage, unspecified (5) Hypertension Code(s): I10 - ESSENTIAL (PRIMARY) HYPERTENSION Qualifiers: Qualified Code(s): I10 - Essential (primary) hypertension; I10 - Essential (primary) hypertension; I10 - Essential (primary) hypertension (6) MSSA (methicillin susceptible Staphylococcus aureus) infection Code(s): A49.01 - METHICILLIN SUSCEP STAPH INFECTION, UNSP SITE (7) Respiratory arrest before cardiac arrest Code(s): I46.9 - CARDIAC ARREST, CAUSE UNSPECIFIED R09.2 - RESPIRATORY ARREST (8) Hyperlipidemia Code(s): E78.5 - HYPERLIPIDEMIA, UNSPECIFIED Qualifiers: Qualified Code(s): E78.00 - Pure hypercholesterolemia, unspecified; E78.00 - Pure hypercholesterolemia, unspecified; E78.00 - Pure hypercholesterolemia, unspecified; E78.0 - Pure hypercholesterolemia (9) Cholestasis Code(s): K83.1 - OBSTRUCTION OF BILE DUCT (10) Anemia Code(s): D64.9 - ANEMIA, UNSPECIFIED Qualifiers: Qualified Code(s): D50.0 - Iron deficiency anemia secondary to blood loss (chronic); D50.0 - Iron deficiency anemia secondary to blood loss (chronic ) Assessment/Plan 03/17/2017 CHEN 1. LV wall motion abnormality with moderate reduction in LV EF, estimated between 35-40% 2. MAC 3. Normal Mitral valve leaflets with no vegitation, trace to mild MR 4. AV sclerosis with no vegitation, no AI 5. Normal Tricuspid leaflets with no vegitation, mild TR 6. Faintly visualized Pulmonic valve with no vegitation 7. Intact atrial septum with no intra-cardiac shunting by color flow 8. Mild to degree of layered athero-sclerosis in the descending thoracic aorta and the distal thoracic arch 1. Cardiopulmonary arrest with PEA (Pulseless Electrical Activity) post resuscitation and post respiratory failure 2. Abnormal EKG, unclear underlying atrial rhythm now resolved most likely related profound metabolic/lactic acidosis 3. CAD post SD/CABG angina pectoris with evidence of demand ischemic injury in context of acute pulmonary edema - resolved 4. Moderate LV systolic dysfunction with acute class III-IV NYHA classification LV failure 5. Acute kidney injury post HD with post ATN diuresis resolving 6. Anemia, recent GI bleed related to peptic ulcer disease, post transfusion 7. History of HTN - episode of hypotension post pressor support - now stable 8. DM 9. Hypercholesterolemia 10. Left hand cellulitis with MSSA sepsis syndrome and septic shock and left psoas collection post drainage 11. Hyponatremia 12. Improving leukocytosis, f/u wound cultures PLAN: 1. Continue Heparin SQ with caution and Protonix 40 qd, compression therapy, start Plavix once Hgb stabilizes 2. Monitor off HD, PC d/piero and diuretics per the renal service 3. Continue Coreg 3.125 bid with uptitration as tolerated. Restart Statin once LFT recovers 4. Transfusion PRN to maintain Hgb equal or > 8.0 5. Completed Abx course per ID, f/u wound and blood cultures NGTD
[2017-04-01] MEDS ORDERED: INSULIN (NOVOLOG) ASPART 100 UNITS/ML 10ML VIAL ONE (11:48)
--- NOTE | 2017-04-01 11:48 | PN ---
Progress Note (short form) - Note Progress Note: Pt seen and examined. His left hand and UE looks much better. He has min c/o pain. He states ROM is improving. PE Left hand and wrist look great. Very minimal swelling, no erythema, nontender. NVI Fingers, thumb, wrist still stiff. Labs Hand aspirate cultures negative so far. Imp Left hand infection resolved, doing well. Has stifness, he needs to actively and passively push/stretch his left hand, wrist, fingers, thumb. Rec Fornal P.T. if he can't do it himself.
--- NOTE | 2017-04-01 12:24 | PN ---
Progress Note (short form) - Note Progress Note: Renal Follow up for JOE Pt seen and examined at the bedside no acute complaints good urine output no sob, chest pain, N/V/D Vital Signs Temperature 98.4 F 04/01/17 10:00 Pulse Rate 73 04/01/17 10:00 Respiratory Rate 17 04/01/17 10:00 Blood Pressure 126/60 04/01/17 10:00 O2 Sat by Pulse Oximetry (%) 98 04/01/17 11:49 Intake & Output 03/29/17 03/30/17 03/31/17 04/01/17 23:59 23:59 23:59 23:59 Intake Total 800 1530 130 Output Total 2120 2790 2125 1000 Balance -1320 -1260 -1994 -999 Weight 252 lb 6.4 oz 252 lb 9.6 oz 253 lb 256 lb 3.2 oz Gen: NAD CVS: RRR Lungs: CTA Abd: soft NT/ND Ext: 2+ edema in LE CBC, BMP 04/01/17 05:50 04/01/17 05:50 Current Medications Allopurinol (Zyloprim -) 100 mg PO DAILY [facility] Last Admin: 04/01/17 09:47 Dose: 100 mg Carvedilol (Coreg -) 3.125 mg PO BID [facility] Last Admin: 04/01/17 09:47 Dose: 3.125 mg Cholecalciferol (Vitamin D3 -) 2,000 unit PO DAILY [facility] Last Admin: 04/01/17 09:47 Dose: 2,000 unit Heparin Sodium (Porcine) (Heparin -) 5,000 unit SQ BID [facility] Last Admin: 04/01/17 09:47 Dose: 5,000 unit IV Flush (Picc Line Flush) 8 ml IVPUSH PRN PRN PRN Reason: Protocol Influenza Virus Vaccine Quadrival (Flulaval Quad [id number]) 60 mcg IM .ONCE ONE Stop: 04/01/17 13:01 Insulin Aspart (Novolog Vial Sliding Scale -) 1 vial SQ TIDAC [facility] PRN Reason: Protocol Last Admin: 04/01/17 12:19 Dose: 2 units Lactulose (Cephulac (Oral Use)) 20 gm PO BID [facility] Last Admin: 04/01/17 09:46 Dose: 20 gm Ondansetron HCl (Zofran Injection) 4 mg IVPB Q8H PRN PRN Reason: NAUSEA Oxycodone HCl (Roxicodone -) 10 mg PO Q3H PRN PRN Reason: PAIN Last Admin: 04/01/17 09:54 Dose: 10 mg Pantoprazole Sodium (Protonix -) 40 mg PO DAILY [facility] Last Admin: 04/01/17 09:50 Dose: 40 mg Polyethylene Glycol (Miralax (For Daily Use) -) 17 gm PO DAILY [facility] Last Admin: 04/01/17 09:47 Dose: 17 gm Sevelamer Carbonate (Renvela -) 800 mg PO TIDCM [facility] Last Admin: 04/01/17 12:17 Dose: 800 mg Zinc Acetate/Diphenhydramine (Benadryl 2% Cream) 1 applic TP BID [facility] Last Admin: 04/01/17 09:46 Dose: 1 applic A/P 71 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 #Renal Failure with volume overload secondary to ATN BUN/Cr stable and pt is non-oliguirc dialysis catheter removed as there is no indication for further dialysis continue to trend BUN/Cr no diuretics at this time Fluid restriction of 1.2L dialy trend daily weights Aubrey Marck Problem List - Problems (1) Cellulitis Code(s): L03.90 - CELLULITIS, UNSPECIFIED Qualifiers: Qualified Code(s): L03.114 - Cellulitis of left upper limb; L03.114 - Cellulitis of left upper limb (2) Acute renal failure (ARF) Code(s): N17.9 - ACUTE KIDNEY FAILURE, UNSPECIFIED Qualifiers: Qualified Code(s): N17.9 - Acute kidney failure, unspecified; N17.9 - Acute kidney failure, unspecified; N17.9 - Acute kidney failure, unspecified (3) CAD (coronary artery disease) Code(s): I25.10 - ATHSCL HEART DISEASE OF [place] CORONARY ARTERY W/O ANG PCTRS Qualifiers: Qualified Code(s): I25.110 - Atherosclerotic heart disease of [place] coronary artery with unstable angina pectoris; I25.110 - Atherosclerotic heart disease of [place] coronary artery with unstable angina pectoris; I25.110 - Atherosclerotic heart disease of [place] coronary artery with unstable angina pectoris; I25.110 - Atherosclerotic heart disease of [place] coronary artery with unstable angina pectoris (4) Hypertension Code(s): I10 - ESSENTIAL (PRIMARY) HYPERTENSION Qualifiers: Qualified Code(s): I10 - Essential (primary) hypertension; I10 - Essential (primary) hypertension; I10 - Essential (primary) hypertension (5) Gout Code(s): M10.9 - GOUT, UNSPECIFIED (6) Leukocytosis Code(s): D72.829 - ELEVATED WHITE BLOOD CELL COUNT, UNSPECIFIED
[2017-04-01] MEDS ORDERED: FLU VACCINE QUAD 60 MCG/0.5 ML (MDV 17-18) IM ONE (13:00)
--- NOTE | 2017-04-01 15:12 | PN ---
Progress Note, Physician History of Present Illness: stable moving around wbc trending down passing good urine shiley removed - Current Medication List Current Medications: Active Medications Allopurinol (Zyloprim -) 100 mg PO DAILY [facility] Last Admin: 04/01/17 09:47 Dose: 100 mg Carvedilol (Coreg -) 3.125 mg PO BID [facility] Last Admin: 04/01/17 09:47 Dose: 3.125 mg Cholecalciferol (Vitamin D3 -) 2,000 unit PO DAILY [facility] Last Admin: 04/01/17 09:47 Dose: 2,000 unit Heparin Sodium (Porcine) (Heparin -) 5,000 unit SQ BID [facility] Last Admin: 04/01/17 09:47 Dose: 5,000 unit IV Flush (Picc Line Flush) 8 ml IVPUSH PRN PRN PRN Reason: Protocol Insulin Aspart (Novolog Vial Sliding Scale -) 1 vial SQ TIDAC PAULINA PRN Reason: Protocol Last Admin: 04/01/17 12:19 Dose: 2 units Lactulose (Cephulac (Oral Use)) 20 gm PO BID [facility] Last Admin: 04/01/17 09:46 Dose: 20 gm Ondansetron HCl (Zofran Injection) 4 mg IVPB Q8H PRN PRN Reason: NAUSEA Oxycodone HCl (Roxicodone -) 10 mg PO Q3H PRN PRN Reason: PAIN Last Admin: 04/01/17 09:54 Dose: 10 mg Pantoprazole Sodium (Protonix -) 40 mg PO DAILY [facility] Last Admin: 04/01/17 09:50 Dose: 40 mg Polyethylene Glycol (Miralax (For Daily Use) -) 17 gm PO DAILY [facility] Last Admin: 04/01/17 09:47 Dose: 17 gm Sevelamer Carbonate (Renvela -) 800 mg PO TIDCM [facility] Last Admin: 04/01/17 12:17 Dose: 800 mg Zinc Acetate/Diphenhydramine (Benadryl 2% Cream) 1 applic TP BID [facility] Last Admin: 04/01/17 09:46 Dose: 1 applic - Objective Vital Signs: Vital Signs Temperature 98.2 F 04/01/17 13:49 Pulse Rate 78 04/01/17 13:49 Respiratory Rate 18 04/01/17 13:49 Blood Pressure 128/72 04/01/17 13:49 O2 Sat by Pulse Oximetry (%) 98 04/01/17 11:49 Constitutional: Yes: No Distress, Calm Cardiovascular: Yes: Regular Rate and Rhythm Respiratory: Yes: Regular, CTA Bilaterally, On Nasal O2 Gastrointestinal: Yes: Normal Bowel Sounds, Soft Musculoskeletal: Yes: WNL Extremities: Yes: WNL Neurological: Yes: Alert, Oriented Psychiatric: Yes: Alert, Oriented Labs: CBC, BMP 04/01/17 05:50 04/01/17 05:50 INR, PTT INR 1.55 (0.82-1.09) H 03/26/17 09:04 Assessment/Plan Problem List - Problems (1) Acute renal failure (ARF) Code(s): N17.9 - ACUTE KIDNEY FAILURE, UNSPECIFIED Qualifiers: Qualified Code(s): N17.9 - Acute kidney failure, unspecified; N17.9 - Acute kidney failure, unspecified; N17.9 - Acute kidney failure, unspecified (2) GI bleed Code(s): K92.2 - GASTROINTESTINAL HEMORRHAGE, UNSPECIFIED Qualifiers: Qualified Code(s): K92.2 - Gastrointestinal hemorrhage, unspecified; K92.2 - Gastrointestinal hemorrhage, unspecified (3) Cellulitis Code(s): L03.90 - CELLULITIS, UNSPECIFIED Qualifiers: Qualified Code(s): L03.114 - Cellulitis of left upper limb; L03.114 - Cellulitis of left upper limb (4) CAD (coronary artery disease) Code(s): I25.10 - ATHSCL HEART DISEASE OF [place] CORONARY ARTERY W/O ANG PCTRS Qualifiers: Qualified Code(s): I25.110 - Atherosclerotic heart disease of [place] coronary artery with unstable angina pectoris; I25.110 - Atherosclerotic heart disease of [place] coronary artery with unstable angina pectoris; I25.110 - Atherosclerotic heart disease of [place] coronary artery with unstable angina pectoris; I25.110 - Atherosclerotic heart disease of [place] coronary artery with unstable angina pectoris (5) Gout Code(s): M10.9 - GOUT, UNSPECIFIED (6) Hypertension Code(s): I10 - ESSENTIAL (PRIMARY) HYPERTENSION Qualifiers: Qualified Code(s): I10 - Essential (primary) hypertension; I10 - Essential (primary) hypertension; I10 - Essential (primary) hypertension (7) Anemia Code(s): D64.9 - ANEMIA, UNSPECIFIED Qualifiers: Qualified Code(s): D50.0 - Iron deficiency anemia secondary to blood loss (chronic); D50.0 - Iron deficiency anemia secondary to blood loss (chronic ) (8) Leukocytosis Code(s): D72.829 - ELEVATED WHITE BLOOD CELL COUNT, UNSPECIFIED (9) Respiratory arrest Code(s): R09.2 - RESPIRATORY ARREST mssa bacteremia sepsis plan continue to monitor wbc near normal rest as per primary team patient doing well
[2017-04-02] MEDS: oxyCODONE HCL 5 MG TABLET PO PRN ×3 (05:46→20:04)
[2017-04-02] MEDS: INSULIN SLIDING SCALE (NOVOLOG) 1 VIAL SQ SCH ×3 (06:12→17:14)
[2017-04-02 07:20] LABS: BASOPHIL 0.3 % (0-2.0); EOSINOPHIL 20.1 % (0-4.5); MCH 30.5 pg (25.7-33.7); MCHC 33.8 g/dl (32.0-35.9); MEAN CELL VOLUME 90.2 fl (80-96); MEAN PLT VOLUME 8.1 fl (7.5-11.1); NEUTROPHILS 57.6 % (42.8-82.8); PLATELET COUNT 192 K/MM3 (134-434); RDW 19.1 % (11.9-15.9); WHITE BLOOD COUNT 9.2 K/mm3 (4.0-10.0)
[2017-04-02 08:03] LABS: ANION GAP 13 (8-16); CALCIUM 8.8 mg/dL (8.5-10.1); CO2 28 mmol/L (21-32); CREATININE 3.6 mg/dL (0.7-1.3); GLUCOSE,RANDOM 155 mg/dL (74-106); MAGNESIUM 1.9 mg/dL (1.8-2.4); PHOSPHOROUS 5.2 mg/dL (2.5-4.9)
[2017-04-02] MEDS: SEVELAMER CARBONATE 800 MG TAB (FP) PO SCH ×3 (09:00→17:17)
[2017-04-02] MEDS ORDERED: PT OWN MED DRAWER 7, Y5N ONE (10:21)
[2017-04-02] MEDS: LACTULOSE 20 GM/30 ML UDC (FOR ORAL USE ONLY) PO SCH ×2 (10:24→21:28)
[2017-04-02] MEDS: CARVEDILOL 3.125 MG TABLET (FP) PO SCH ×2 (10:24→21:24)
[2017-04-02] MEDS: CHOLECALCIFEROL (VITAMIN D3) 1,000 UNIT TABLET (FP) PO SCH (10:25)
[2017-04-02] MEDS: HEPARIN NA (PORCINE) 5,000 UNITS/ML 1ML VIAL SQ SCH ×2 (10:25→21:25)
[2017-04-02] MEDS: PANTOPRAZOLE 40 MG TABLET (FP) PO SCH (10:25)
[2017-04-02] MEDS: ALLOPURINOL 100 MG TABLET (FP) PO SCH (10:26)
--- NOTE | 2017-04-02 10:28 | PN ---
Progress Note, Physician History of Present Illness: Remains comfortable on NC, hemodynamically stable. Diuresing well off HD and Demadex. - Current Medication List Current Medications: Active Medications Allopurinol (Zyloprim -) 100 mg PO DAILY [facility] Last Admin: 04/01/17 09:47 Dose: 100 mg Carvedilol (Coreg -) 3.125 mg PO BID [facility] Last Admin: 04/01/17 22:27 Dose: 3.125 mg Cholecalciferol (Vitamin D3 -) 2,000 unit PO DAILY [facility] Last Admin: 04/01/17 09:47 Dose: 2,000 unit Heparin Sodium (Porcine) (Heparin -) 5,000 unit SQ BID [facility] Last Admin: 04/01/17 22:27 Dose: 5,000 unit IV Flush (Picc Line Flush) 8 ml IVPUSH PRN PRN PRN Reason: Protocol Insulin Aspart (Novolog Vial Sliding Scale -) 1 vial SQ TIDAC PAULINA PRN Reason: Protocol Last Admin: 04/02/17 06:12 Dose: Not Given Lactulose (Cephulac (Oral Use)) 20 gm PO BID [facility] Last Admin: 04/01/17 22:28 Dose: Not Given Ondansetron HCl (Zofran Injection) 4 mg IVPB Q8H PRN PRN Reason: NAUSEA Oxycodone HCl (Roxicodone -) 10 mg PO Q3H PRN PRN Reason: PAIN Last Admin: 04/02/17 05:46 Dose: 10 mg Pantoprazole Sodium (Protonix -) 40 mg PO DAILY [facility] Last Admin: 04/01/17 09:50 Dose: 40 mg Polyethylene Glycol (Miralax (For Daily Use) -) 17 gm PO DAILY [facility] Last Admin: 04/01/17 09:47 Dose: 17 gm Sevelamer Carbonate (Renvela -) 800 mg PO TIDCM [facility] Last Admin: 04/01/17 17:26 Dose: 800 mg Zinc Acetate/Diphenhydramine (Benadryl 2% Cream) 1 applic TP BID [facility] Last Admin: 04/01/17 22:28 Dose: 1 applic - Objective Vital Signs: Vital Signs Temperature 99.6 F 04/02/17 09:36 Pulse Rate 75 04/02/17 09:36 Respiratory Rate 18 04/02/17 09:36 Blood Pressure 122/62 04/02/17 09:36 O2 Sat by Pulse Oximetry (%) 98 04/02/17 09:25 Constitutional: Yes: No Distress, Calm Neck: Yes: Supple Cardiovascular: Yes: Regular Rate and Rhythm Respiratory: Yes: Regular, Diminished, On Nasal O2 Gastrointestinal: Yes: Normal Bowel Sounds, Soft, Abdomen, Obese Edema: Yes Edema: LLE: 1+, RLE: 1+ Labs: CBC, BMP 04/02/17 06:00 04/02/17 06:00 INR, PTT INR 1.55 (0.82-1.09) H 03/26/17 09:04 - ....Imaging EKG: Report Reviewed (Tele: NSR with occ PVC) Problem List - Problems (1) Acute renal failure (ARF) Code(s): N17.9 - ACUTE KIDNEY FAILURE, UNSPECIFIED Qualifiers: Qualified Code(s): N17.9 - Acute kidney failure, unspecified; N17.9 - Acute kidney failure, unspecified; N17.9 - Acute kidney failure, unspecified (2) CAD (coronary artery disease) Code(s): I25.10 - ATHSCL HEART DISEASE OF [place] CORONARY ARTERY W/O ANG PCTRS Qualifiers: Qualified Code(s): I25.110 - Atherosclerotic heart disease of [place] coronary artery with unstable angina pectoris; I25.110 - Atherosclerotic heart disease of [place] coronary artery with unstable angina pectoris; I25.110 - Atherosclerotic heart disease of [place] coronary artery with unstable angina pectoris; I25.110 - Atherosclerotic heart disease of [place] coronary artery with unstable angina pectoris (3) Cellulitis Code(s): L03.90 - CELLULITIS, UNSPECIFIED Qualifiers: Qualified Code(s): L03.114 - Cellulitis of left upper limb; L03.114 - Cellulitis of left upper limb (4) GI bleed Code(s): K92.2 - GASTROINTESTINAL HEMORRHAGE, UNSPECIFIED Qualifiers: Qualified Code(s): K92.2 - Gastrointestinal hemorrhage, unspecified; K92.2 - Gastrointestinal hemorrhage, unspecified (5) Hypertension Code(s): I10 - ESSENTIAL (PRIMARY) HYPERTENSION Qualifiers: Qualified Code(s): I10 - Essential (primary) hypertension; I10 - Essential (primary) hypertension; I10 - Essential (primary) hypertension (6) MSSA (methicillin susceptible Staphylococcus aureus) infection Code(s): A49.01 - METHICILLIN SUSCEP STAPH INFECTION, UNSP SITE (7) Respiratory arrest before cardiac arrest Code(s): I46.9 - CARDIAC ARREST, CAUSE UNSPECIFIED R09.2 - RESPIRATORY ARREST (8) Hyperlipidemia Code(s): E78.5 - HYPERLIPIDEMIA, UNSPECIFIED Qualifiers: Qualified Code(s): E78.00 - Pure hypercholesterolemia, unspecified; E78.00 - Pure hypercholesterolemia, unspecified; E78.00 - Pure hypercholesterolemia, unspecified; E78.0 - Pure hypercholesterolemia (9) Cholestasis Code(s): K83.1 - OBSTRUCTION OF BILE DUCT (10) Anemia Code(s): D64.9 - ANEMIA, UNSPECIFIED Qualifiers: Qualified Code(s): D50.0 - Iron deficiency anemia secondary to blood loss (chronic); D50.0 - Iron deficiency anemia secondary to blood loss (chronic ) Assessment/Plan 03/17/2017 CHEN 1. LV wall motion abnormality with moderate reduction in LV EF, estimated between 35-40% 2. MAC 3. Normal Mitral valve leaflets with no vegitation, trace to mild MR 4. AV sclerosis with no vegitation, no AI 5. Normal Tricuspid leaflets with no vegitation, mild TR 6. Faintly visualized Pulmonic valve with no vegitation 7. Intact atrial septum with no intra-cardiac shunting by color flow 8. Mild to degree of layered athero-sclerosis in the descending thoracic aorta and the distal thoracic arch 1. Cardiopulmonary arrest with PEA (Pulseless Electrical Activity) post resuscitation and post respiratory failure 2. Abnormal EKG, unclear underlying atrial rhythm now resolved most likely related profound metabolic/lactic acidosis 3. CAD post [place]/CABG angina pectoris with evidence of demand ischemic injury in context of acute pulmonary edema - resolved 4. Moderate LV systolic dysfunction with acute class III-IV NYHA classification LV failure 5. Acute kidney injury post HD with post ATN diuresis resolving 6. Anemia, recent GI bleed related to peptic ulcer disease, post transfusion 7. History of HTN - episode of hypotension post pressor support - now stable 8. DM 9. Hypercholesterolemia 10. Left hand cellulitis with MSSA sepsis syndrome and septic shock and left psoas collection post drainage resolved PLAN: 1. Continue Heparin SQ with caution and Protonix 40 qd, compression therapy, start Plavix once Hgb stabilizes 2. Monitor off HD, PC d/piero and diuretics per the renal service 3. Continue Coreg 3.125 bid with uptitration as tolerated. Restart Statin once LFT recovers 4. Transfusion PRN to maintain Hgb equal or > 8.0 5. Completed Abx course per ID, f/u wound and blood cultures NGTD
[2017-04-02] MEDS: POLYETHYLENE GLYCOL 3350 119 GM BTL PO SCH (10:29)
--- NOTE | 2017-04-02 12:40 | PN ---
Progress Note (short form) - Note Progress Note: Feels overall better. Just took his first shower since admission. Permacath removed yesterday. No CP or SOB. Intake & Output 03/30/17 03/31/17 04/01/17 04/02/17 23:59 23:59 23:59 23:59 Intake Total 1530 130 10 60 Output Total 2790 2125 3400 960 Balance -1260 -1995 -3390 -900 Weight 252 lb 9.6 oz 253 lb 256 lb 3.2 oz 250 lb 4 oz Last Vital Signs Temp Pulse Resp BP Pulse Ox 99.6 F 75 18 122/62 98 04/02/17 09:36 04/02/17 09:36 04/02/17 09:36 04/02/17 09:36 04/02/17 09:25 Active Medications Allopurinol (Zyloprim -) 100 mg PO DAILY [facility] Last Admin: 04/02/17 10:26 Dose: 100 mg Carvedilol (Coreg -) 3.125 mg PO BID [facility] Last Admin: 04/02/17 10:24 Dose: 3.125 mg Cholecalciferol (Vitamin D3 -) 2,000 unit PO DAILY [facility] Last Admin: 04/02/17 10:25 Dose: 2,000 unit Heparin Sodium (Porcine) (Heparin -) 5,000 unit SQ BID [facility] Last Admin: 04/02/17 10:25 Dose: 5,000 unit IV Flush (Picc Line Flush) 8 ml IVPUSH PRN PRN PRN Reason: Protocol Insulin Aspart (Novolog Vial Sliding Scale -) 1 vial SQ TIDAC PAULINA PRN Reason: Protocol Last Admin: 04/02/17 06:12 Dose: Not Given Lactulose (Cephulac (Oral Use)) 20 gm PO BID [facility] Last Admin: 04/02/17 10:24 Dose: 20 gm Ondansetron HCl (Zofran Injection) 4 mg IVPB Q8H PRN PRN Reason: NAUSEA Oxycodone HCl (Roxicodone -) 10 mg PO Q3H PRN PRN Reason: PAIN Last Admin: 04/02/17 05:46 Dose: 10 mg Pantoprazole Sodium (Protonix -) 40 mg PO DAILY [facility] Last Admin: 04/02/17 10:25 Dose: 40 mg Polyethylene Glycol (Miralax (For Daily Use) -) 17 gm PO DAILY [facility] Last Admin: 04/02/17 10:29 Dose: Not Given Sevelamer Carbonate (Renvela -) 800 mg PO TIDCM [facility] Last Admin: 04/02/17 09:00 Dose: 800 mg Zinc Acetate/Diphenhydramine (Benadryl 2% Cream) 1 applic TP BID [facility] Last Admin: 04/01/17 22:28 Dose: 1 applic Exam: General: awake, alert, NAD HEENT: PERRL, no JVD CV: s1, s2 Pulm: diminished in bases Abd: obese Ext: Improving edema Neuro: grossly intact Laboratory Results - last 24 hr 03/27/17 04/01/17 04/01/17 14:30 12:18 17:25 WBC RBC Hgb Hct MCV MCH MCHC RDW Plt Count MPV Neutrophils % Lymphocytes % Monocytes % Eosinophils % Basophils % Sodium Potassium Chloride Carbon Dioxide Anion Gap BUN Creatinine POC Glucometer 174 200 Random Glucose Calcium Phosphorus Magnesium Blood Type O NEGATIVE Antibody Screen Negative Crossmatch See Detail 04/02/17 04/02/17 04/02/17 05:49 06:00 06:00 WBC 9.2 RBC 2.45 L Hgb 7.5 L Hct 22.1 L MCV 90.2 MCH 30.5 MCHC 33.8 RDW 19.1 H Plt Count 192 MPV 8.1 Neutrophils % 57.6 Lymphocytes % 13.5 Monocytes % 8.5 Eosinophils % 20.1 H* Basophils % 0.3 Sodium 136 Potassium 3.5 Chloride 95 L Carbon Dioxide 28 Anion Gap 13 BUN 54 H Creatinine 3.6 H POC Glucometer 156 Random Glucose 155 H Calcium 8.8 Phosphorus 5.2 H Magnesium 1.9 Blood Type Antibody Screen Crossmatch Problem List - Problems (1) Cellulitis Code(s): L03.90 - CELLULITIS, UNSPECIFIED Qualifiers: Site of cellulitis: extremity Site of cellulitis of extremity: upper extremity Laterality: left Qualified Code(s): L03.114 - Cellulitis of left upper limb (2) Acute renal failure (ARF) Code(s): N17.9 - ACUTE KIDNEY FAILURE, UNSPECIFIED (3) CAD (coronary artery disease) Code(s): I25.10 - ATHSCL HEART DISEASE OF [place] CORONARY ARTERY W/O ANG PCTRS (4) Gout Code(s): M10.9 - GOUT, UNSPECIFIED (5) Hypertension Code(s): I10 - ESSENTIAL (PRIMARY) HYPERTENSION (6) Hyponatremia Code(s): E87.1 - HYPO-OSMOLALITY AND HYPONATREMIA IMP: CAD S/P CABG x2 Gout on allopurinol/colchicine HTN HLD DM II Fatty liver BPH MSSA bacteremia O2 as needed Monitor off HD per Renal I & O Daily weight Glycemic control Local wound care VTE prophylaxis Ambulate D/C planning Dr Sandoval
--- NOTE | 2017-04-02 15:18 | PN ---
Progress Note, Physician History of Present Illness: stable moving around had a hypoxia - Current Medication List Current Medications: Active Medications Allopurinol (Zyloprim -) 100 mg PO DAILY [facility] Last Admin: 04/02/17 10:26 Dose: 100 mg Carvedilol (Coreg -) 3.125 mg PO BID [facility] Last Admin: 04/02/17 10:24 Dose: 3.125 mg Cholecalciferol (Vitamin D3 -) 2,000 unit PO DAILY [facility] Last Admin: 04/02/17 10:25 Dose: 2,000 unit Heparin Sodium (Porcine) (Heparin -) 5,000 unit SQ BID [facility] Last Admin: 04/02/17 10:25 Dose: 5,000 unit IV Flush (Picc Line Flush) 8 ml IVPUSH PRN PRN PRN Reason: Protocol Insulin Aspart (Novolog Vial Sliding Scale -) 1 vial SQ TIDAC PAULINA PRN Reason: Protocol Last Admin: 04/02/17 06:12 Dose: Not Given Lactulose (Cephulac (Oral Use)) 20 gm PO BID [facility] Last Admin: 04/02/17 10:24 Dose: 20 gm Ondansetron HCl (Zofran Injection) 4 mg IVPB Q8H PRN PRN Reason: NAUSEA Oxycodone HCl (Roxicodone -) 10 mg PO Q3H PRN PRN Reason: PAIN Last Admin: 04/02/17 05:46 Dose: 10 mg Pantoprazole Sodium (Protonix -) 40 mg PO DAILY [facility] Last Admin: 04/02/17 10:25 Dose: 40 mg Polyethylene Glycol (Miralax (For Daily Use) -) 17 gm PO DAILY [facility] Last Admin: 04/02/17 10:29 Dose: Not Given Sevelamer Carbonate (Renvela -) 800 mg PO TIDCM [facility] Last Admin: 04/02/17 09:00 Dose: 800 mg Zinc Acetate/Diphenhydramine (Benadryl 2% Cream) 1 applic TP BID [facility] Last Admin: 04/01/17 22:28 Dose: 1 applic - Objective Vital Signs: Vital Signs Temperature 98.2 F 04/02/17 14:00 Pulse Rate 82 04/02/17 14:00 Respiratory Rate 18 04/02/17 14:00 Blood Pressure 156/72 04/02/17 14:00 O2 Sat by Pulse Oximetry (%) 97 04/02/17 10:00 Constitutional: Yes: No Distress, Calm Cardiovascular: Yes: Regular Rate and Rhythm Respiratory: Yes: Regular, CTA Bilaterally Gastrointestinal: Yes: Normal Bowel Sounds, Soft Musculoskeletal: Yes: Other Extremities: Yes: Other (left hand still swollen) Neurological: Yes: Alert, Oriented Psychiatric: Yes: Alert, Oriented Labs: CBC, BMP 04/02/17 06:00 04/02/17 06:00 INR, PTT INR 1.55 (0.82-1.09) H 03/26/17 09:04 Assessment/Plan Problem List - Problems (1) Acute renal failure (ARF) Code(s): N17.9 - ACUTE KIDNEY FAILURE, UNSPECIFIED Qualifiers: Qualified Code(s): N17.9 - Acute kidney failure, unspecified; N17.9 - Acute kidney failure, unspecified; N17.9 - Acute kidney failure, unspecified (2) GI bleed Code(s): K92.2 - GASTROINTESTINAL HEMORRHAGE, UNSPECIFIED Qualifiers: Qualified Code(s): K92.2 - Gastrointestinal hemorrhage, unspecified; K92.2 - Gastrointestinal hemorrhage, unspecified (3) Cellulitis Code(s): L03.90 - CELLULITIS, UNSPECIFIED Qualifiers: Qualified Code(s): L03.114 - Cellulitis of left upper limb; L03.114 - Cellulitis of left upper limb (4) CAD (coronary artery disease) Code(s): I25.10 - ATHSCL HEART DISEASE OF [place] CORONARY ARTERY W/O ANG PCTRS Qualifiers: Qualified Code(s): I25.110 - Atherosclerotic heart disease of [place] coronary artery with unstable angina pectoris; I25.110 - Atherosclerotic heart disease of [place] coronary artery with unstable angina pectoris; I25.110 - Atherosclerotic heart disease of [place] coronary artery with unstable angina pectoris; I25.110 - Atherosclerotic heart disease of [place] coronary artery with unstable angina pectoris (5) Gout Code(s): M10.9 - GOUT, UNSPECIFIED (6) Hypertension Code(s): I10 - ESSENTIAL (PRIMARY) HYPERTENSION Qualifiers: Qualified Code(s): I10 - Essential (primary) hypertension; I10 - Essential (primary) hypertension; I10 - Essential (primary) hypertension (7) Anemia Code(s): D64.9 - ANEMIA, UNSPECIFIED Qualifiers: Qualified Code(s): D50.0 - Iron deficiency anemia secondary to blood loss (chronic); D50.0 - Iron deficiency anemia secondary to blood loss (chronic ) (8) Leukocytosis Code(s): D72.829 - ELEVATED WHITE BLOOD CELL COUNT, UNSPECIFIED (9) Respiratory arrest Code(s): R09.2 - RESPIRATORY ARREST mssa bacteremia sepsis plan continue to monitor wbc normal rest as per primary team patient doing well continue current mgmt passing urine
--- NOTE | 2017-04-02 15:29 | PN ---
Progress Note (short form) - Note Progress Note: Renal Follow up for JOE Pt seen and examined at the bedside awake and alert no acute complaints making a good amount of urine no sob, chest pain Vital Signs Temperature 98.2 F 04/02/17 14:00 Pulse Rate 82 04/02/17 14:00 Respiratory Rate 18 04/02/17 14:00 Blood Pressure 156/72 04/02/17 14:00 O2 Sat by Pulse Oximetry (%) 97 04/02/17 10:00 Intake & Output 03/30/17 03/31/17 04/01/17 04/02/17 23:59 23:59 23:59 23:59 Intake Total 1530 130 10 60 Output Total 2790 2125 3400 1760 Balance -9111 -7132 -1147 -9291 Weight 252 lb 9.6 oz 253 lb 256 lb 3.2 oz 250 lb 4 oz Gen: NAD CVS: RRR Lungs: CTA Abd: soft NT/ND Ext: 2+ edema in LE CBC, BMP 04/02/17 06:00 04/02/17 06:00 Current Medications Allopurinol (Zyloprim -) 100 mg PO DAILY [facility] Last Admin: 04/02/17 10:26 Dose: 100 mg Carvedilol (Coreg -) 3.125 mg PO BID [facility] Last Admin: 04/02/17 10:24 Dose: 3.125 mg Cholecalciferol (Vitamin D3 -) 2,000 unit PO DAILY [facility] Last Admin: 04/02/17 10:25 Dose: 2,000 unit Heparin Sodium (Porcine) (Heparin -) 5,000 unit SQ BID [facility] Last Admin: 04/02/17 10:25 Dose: 5,000 unit IV Flush (Picc Line Flush) 8 ml IVPUSH PRN PRN PRN Reason: Protocol Insulin Aspart (Novolog Vial Sliding Scale -) 1 vial SQ TIDAC PAULINA PRN Reason: Protocol Last Admin: 04/02/17 06:12 Dose: Not Given Lactulose (Cephulac (Oral Use)) 20 gm PO BID [facility] Last Admin: 04/02/17 10:24 Dose: 20 gm Ondansetron HCl (Zofran Injection) 4 mg IVPB Q8H PRN PRN Reason: NAUSEA Oxycodone HCl (Roxicodone -) 10 mg PO Q3H PRN PRN Reason: PAIN Last Admin: 04/02/17 05:46 Dose: 10 mg Pantoprazole Sodium (Protonix -) 40 mg PO DAILY [facility] Last Admin: 04/02/17 10:25 Dose: 40 mg Polyethylene Glycol (Miralax (For Daily Use) -) 17 gm PO DAILY [facility] Last Admin: 04/02/17 10:29 Dose: Not Given Sevelamer Carbonate (Renvela -) 800 mg PO TIDCM [facility] Last Admin: 04/02/17 09:00 Dose: 800 mg Zinc Acetate/Diphenhydramine (Benadryl 2% Cream) 1 applic TP BID [facility] Last Admin: 04/01/17 22:28 Dose: 1 applic A/P 71 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 #Renal Failure with volume overload secondary to ATN Renal function improving, pt is making a good amount of urine trend urine output and BUN/Cr daily if pt becomes polyuric (> 4 L) may require hypotonic IVF dose all meds for Cr Cl less then 15 no further indication for STRADDLE BUG Aubrey Acharya DO Problem List - Problems (1) Cellulitis Code(s): L03.90 - CELLULITIS, UNSPECIFIED Qualifiers: Qualified Code(s): L03.114 - Cellulitis of left upper limb; L03.114 - Cellulitis of left upper limb (2) Acute renal failure (ARF) Code(s): N17.9 - ACUTE KIDNEY FAILURE, UNSPECIFIED Qualifiers: Qualified Code(s): N17.9 - Acute kidney failure, unspecified; N17.9 - Acute kidney failure, unspecified; N17.9 - Acute kidney failure, unspecified (3) CAD (coronary artery disease) Code(s): I25.10 - ATHSCL HEART DISEASE OF [place] CORONARY ARTERY W/O ANG PCTRS Qualifiers: Qualified Code(s): I25.110 - Atherosclerotic heart disease of [place] coronary artery with unstable angina pectoris; I25.110 - Atherosclerotic heart disease of [place] coronary artery with unstable angina pectoris; I25.110 - Atherosclerotic heart disease of [place] coronary artery with unstable angina pectoris; I25.110 - Atherosclerotic heart disease of [place] coronary artery with unstable angina pectoris (4) Hypertension Code(s): I10 - ESSENTIAL (PRIMARY) HYPERTENSION Qualifiers: Qualified Code(s): I10 - Essential (primary) hypertension; I10 - Essential (primary) hypertension; I10 - Essential (primary) hypertension (5) Gout Code(s): M10.9 - GOUT, UNSPECIFIED (6) Leukocytosis Code(s): D72.829 - ELEVATED WHITE BLOOD CELL COUNT, UNSPECIFIED
[2017-04-02] MEDS ORDERED: INSULIN (NOVOLOG) ASPART 100 UNITS/ML 10ML VIAL ONE (17:02)
--- NOTE | 2017-04-02 20:00 | PN ---
Progress Note (short form) - Note Progress Note: patient seen and examined this morning. Sitting at the bedside after breakfast. Some pruritic rash on his back. Hemoglobin slightly decreased at 7.5 g; creatinine down to 3.6. Had a shower and has some shortness of breath on exertion and walking but otherwise comfortable. On exam: Vital Signs Temp 98.4 F 04/02/17 18:00 Pulse 75 04/02/17 18:00 Resp 18 04/02/17 18:00 BP 129/59 04/02/17 18:00 Pulse Ox 97 04/02/17 10:00 Intake & Output 04/01/17 04/02/17 04/02/17 23:59 11:59 23:59 Intake Total 10 60 240 Output Total 2400 960 1600 Balance -2390 -900 -1360 Weight 250 lb 4 oz Intake: IV 10 10 lfa #22 04/07 10 10 Oral 50 240 Output: Urine 2400 960 1600 Void 2400 960 1600 Other: Voiding Method Urinal Urinal Urinal Bowel Movement No No Yes # Bowel Movements 3 2 Weight Measurement Method Standing Scale alert Still slightly icteric. Chest decreased breath sounds but no wheezes or rales. Body edema 3+ below the waist. Heart regular. Extremities erythema and 3+ edema bilaterally. Abnormal Lab Results 03/27/17 04/02/17 04/02/17 14:30 06:00 06:00 RBC 2.45 L Hgb 7.5 L Hct 22.1 L RDW 19.1 H Eosinophils % 20.1 H* Chloride 95 L BUN 54 H Creatinine 3.6 H Random Glucose 155 H Phosphorus 5.2 H Crossmatch See Detail impression: MSSA sepsis from cellulitis left hand and wrist and forearm. Acute renal failure from sepsis. Respiratory arrest on this admission. Acute cardiac event post respiratory arrest. Anemia with history of GI bleed. Marked eosinophilia Coronary artery bypass graft x2. Hypoalbuminemia. Acute ischemic liver injury post respiratory arrest improving. Plan: Followup lab a.m. Physical therapy and ambulation. Will still need hospital monitoring for urine output and possible transfusion a.m. Thursday Problem List - Problems (1) Acute renal failure (ARF) Code(s): N17.9 - ACUTE KIDNEY FAILURE, UNSPECIFIED Qualifiers: Qualified Code(s): N17.9 - Acute kidney failure, unspecified; N17.9 - Acute kidney failure, unspecified; N17.9 - Acute kidney failure, unspecified (2) GI bleed Code(s): K92.2 - GASTROINTESTINAL HEMORRHAGE, UNSPECIFIED Qualifiers: Qualified Code(s): K92.2 - Gastrointestinal hemorrhage, unspecified; K92.2 - Gastrointestinal hemorrhage, unspecified (3) Cellulitis Code(s): L03.90 - CELLULITIS, UNSPECIFIED Qualifiers: Qualified Code(s): L03.114 - Cellulitis of left upper limb; L03.114 - Cellulitis of left upper limb (4) CAD (coronary artery disease) Code(s): I25.10 - ATHSCL HEART DISEASE OF [place] CORONARY ARTERY W/O ANG PCTRS Qualifiers: Qualified Code(s): I25.110 - Atherosclerotic heart disease of [place] coronary artery with unstable angina pectoris; I25.110 - Atherosclerotic heart disease of [place] coronary artery with unstable angina pectoris; I25.110 - Atherosclerotic heart disease of [place] coronary artery with unstable angina pectoris; I25.110 - Atherosclerotic heart disease of [place] coronary artery with unstable angina pectoris (5) Gout Code(s): M10.9 - GOUT, UNSPECIFIED (6) Hypertension Code(s): I10 - ESSENTIAL (PRIMARY) HYPERTENSION Qualifiers: Qualified Code(s): I10 - Essential (primary) hypertension; I10 - Essential (primary) hypertension; I10 - Essential (primary) hypertension (7) Anemia Code(s): D64.9 - ANEMIA, UNSPECIFIED Qualifiers: Qualified Code(s): D50.0 - Iron deficiency anemia secondary to blood loss (chronic); D50.0 - Iron deficiency anemia secondary to blood loss (chronic ) (8) Leukocytosis Code(s): D72.829 - ELEVATED WHITE BLOOD CELL COUNT, UNSPECIFIED (9) Respiratory arrest Code(s): R09.2 - RESPIRATORY ARREST
[2017-04-03] MEDS: oxyCODONE HCL 5 MG TABLET PO PRN ×4 (04:41→22:55)
[2017-04-03] MEDS: INSULIN SLIDING SCALE (NOVOLOG) 1 VIAL SQ SCH ×3 (07:01→17:10)
[2017-04-03 07:30] LABS: MCH 30.7 pg (25.7-33.7); MCHC 34.1 g/dl (32.0-35.9); MEAN CELL VOLUME 90.2 fl (80-96); PLATELET COUNT 184 K/MM3 (134-434); RDW 19.1 % (11.9-15.9)
[2017-04-03 08:01] LABS: ANION GAP 12 (8-16); CO2 29 mmol/L (21-32); CREATININE 3.4 mg/dL (0.7-1.3); GLUCOSE,RANDOM 133 mg/dL (74-106); MAGNESIUM 1.9 mg/dL (1.8-2.4); PHOSPHOROUS 5.2 mg/dL (2.5-4.9)
[2017-04-03] MEDS: SEVELAMER CARBONATE 800 MG TAB (FP) PO SCH ×3 (08:31→17:16)
--- NOTE | 2017-04-03 09:22 | PN ---
Progress Note, Physician History of Present Illness: Remains comfortable on NC, hemodynamically stable. Diuresing well off HD and Demadex. - Current Medication List Current Medications: Active Medications Allopurinol (Zyloprim -) 100 mg PO DAILY [facility] Last Admin: 04/02/17 10:26 Dose: 100 mg Carvedilol (Coreg -) 3.125 mg PO BID [facility] Last Admin: 04/02/17 21:24 Dose: 3.125 mg Cholecalciferol (Vitamin D3 -) 2,000 unit PO DAILY [facility] Last Admin: 04/02/17 10:25 Dose: 2,000 unit Heparin Sodium (Porcine) (Heparin -) 5,000 unit SQ BID [facility] Last Admin: 04/02/17 21:25 Dose: 5,000 unit IV Flush (Picc Line Flush) 8 ml IVPUSH PRN PRN PRN Reason: Protocol Insulin Aspart (Novolog Vial Sliding Scale -) 1 vial SQ TIDAC PAULINA PRN Reason: Protocol Last Admin: 04/03/17 07:01 Dose: Not Given Lactulose (Cephulac (Oral Use)) 20 gm PO BID [facility] Last Admin: 04/02/17 21:28 Dose: Not Given Ondansetron HCl (Zofran Injection) 4 mg IVPB Q8H PRN PRN Reason: NAUSEA Oxycodone HCl (Roxicodone -) 10 mg PO Q3H PRN PRN Reason: PAIN Last Admin: 04/03/17 04:41 Dose: 10 mg Pantoprazole Sodium (Protonix -) 40 mg PO DAILY [facility] Last Admin: 04/02/17 10:25 Dose: 40 mg Polyethylene Glycol (Miralax (For Daily Use) -) 17 gm PO DAILY [facility] Last Admin: 04/02/17 10:29 Dose: Not Given Sevelamer Carbonate (Renvela -) 800 mg PO TIDCM [facility] Last Admin: 04/03/17 08:31 Dose: 800 mg Zinc Acetate/Diphenhydramine (Benadryl 2% Cream) 1 applic TP BID [facility] Last Admin: 04/02/17 21:28 Dose: Not Given - Objective Vital Signs: Vital Signs Temperature 98.4 F 04/03/17 04:57 Pulse Rate 72 04/03/17 04:57 Respiratory Rate 20 04/03/17 04:57 Blood Pressure 129/54 04/03/17 04:57 O2 Sat by Pulse Oximetry (%) 97 04/02/17 22:00 Constitutional: Yes: No Distress, Calm Neck: Yes: Supple Cardiovascular: Yes: Regular Rate and Rhythm Respiratory: Yes: Regular, Diminished Gastrointestinal: Yes: Normal Bowel Sounds, Soft, Abdomen, Obese Edema: Yes Edema: LLE: 1+, RLE: 1+ Labs: CBC, BMP 04/03/17 05:35 04/03/17 05:35 INR, PTT INR 1.55 (0.82-1.09) H 03/26/17 09:04 Problem List - Problems (1) Acute renal failure (ARF) Code(s): N17.9 - ACUTE KIDNEY FAILURE, UNSPECIFIED Qualifiers: Qualified Code(s): N17.9 - Acute kidney failure, unspecified; N17.9 - Acute kidney failure, unspecified; N17.9 - Acute kidney failure, unspecified (2) CAD (coronary artery disease) Code(s): I25.10 - ATHSCL HEART DISEASE OF [place] CORONARY ARTERY W/O ANG PCTRS Qualifiers: Qualified Code(s): I25.110 - Atherosclerotic heart disease of [place] coronary artery with unstable angina pectoris; I25.110 - Atherosclerotic heart disease of [place] coronary artery with unstable angina pectoris; I25.110 - Atherosclerotic heart disease of [place] coronary artery with unstable angina pectoris; I25.110 - Atherosclerotic heart disease of [place] coronary artery with unstable angina pectoris (3) Cellulitis Code(s): L03.90 - CELLULITIS, UNSPECIFIED Qualifiers: Qualified Code(s): L03.114 - Cellulitis of left upper limb; L03.114 - Cellulitis of left upper limb (4) GI bleed Code(s): K92.2 - GASTROINTESTINAL HEMORRHAGE, UNSPECIFIED Qualifiers: Qualified Code(s): K92.2 - Gastrointestinal hemorrhage, unspecified; K92.2 - Gastrointestinal hemorrhage, unspecified (5) Hypertension Code(s): I10 - ESSENTIAL (PRIMARY) HYPERTENSION Qualifiers: Qualified Code(s): I10 - Essential (primary) hypertension; I10 - Essential (primary) hypertension; I10 - Essential (primary) hypertension (6) MSSA (methicillin susceptible Staphylococcus aureus) infection Code(s): A49.01 - METHICILLIN SUSCEP STAPH INFECTION, UNSP SITE (7) Respiratory arrest before cardiac arrest Code(s): I46.9 - CARDIAC ARREST, CAUSE UNSPECIFIED R09.2 - RESPIRATORY ARREST (8) Hyperlipidemia Code(s): E78.5 - HYPERLIPIDEMIA, UNSPECIFIED Qualifiers: Qualified Code(s): E78.00 - Pure hypercholesterolemia, unspecified; E78.00 - Pure hypercholesterolemia, unspecified; E78.00 - Pure hypercholesterolemia, unspecified; E78.0 - Pure hypercholesterolemia (9) Cholestasis Code(s): K83.1 - OBSTRUCTION OF BILE DUCT (10) Anemia Code(s): D64.9 - ANEMIA, UNSPECIFIED Qualifiers: Qualified Code(s): D50.0 - Iron deficiency anemia secondary to blood loss (chronic); D50.0 - Iron deficiency anemia secondary to blood loss (chronic ) Assessment/Plan 03/17/2017 CHEN 1. LV wall motion abnormality with moderate reduction in LV EF, estimated between 35-40% 2. MAC 3. Normal Mitral valve leaflets with no vegitation, trace to mild MR 4. AV sclerosis with no vegitation, no AI 5. Normal Tricuspid leaflets with no vegitation, mild TR 6. Faintly visualized Pulmonic valve with no vegitation 7. Intact atrial septum with no intra-cardiac shunting by color flow 8. Mild to degree of layered athero-sclerosis in the descending thoracic aorta and the distal thoracic arch 1. Cardiopulmonary arrest with PEA (Pulseless Electrical Activity) post resuscitation and post respiratory failure 2. Abnormal EKG, unclear underlying atrial rhythm now resolved most likely related profound metabolic/lactic acidosis 3. CAD post LA/CABG angina pectoris with evidence of demand ischemic injury in context of acute pulmonary edema - resolved 4. Moderate LV systolic dysfunction with acute class III-IV NYHA classification LV failure resolved 5. Acute kidney injury post HD with post ATN diuresis resolving 6. Anemia, recent GI bleed related to peptic ulcer disease, post transfusion 7. History of HTN - episode of hypotension post pressor support - now stable 8. DM 9. Hypercholesterolemia 10. Left hand cellulitis with MSSA sepsis syndrome and septic shock and left psoas collection post drainage resolved PLAN: 1. Continue Heparin SQ with caution and Protonix 40 qd, compression therapy, start Plavix once Hgb stabilizes 2. Monitor renal recovery off HD and diuretics per renal service, replete K 3. Continue Coreg 3.125 bid with uptitration as tolerated. Restart Statin once LFT recovers 4. Transfusion PRN to maintain Hgb equal or > 8.0 5. Completed Abx course per ID, f/u wound and blood cultures NGTD
[2017-04-03 09:44] LABS: PLATELET ESTIMATE ADEQUATE (NORMAL)
[2017-04-03 09:45] LABS: BASOPHIL (MANUAL) 2 % (0-2.0); TOTAL CELLS COUNTED 100
--- NOTE | 2017-04-03 09:54 | PN ---
Progress Note (short form) - Note Progress Note: Patient with sepsis and acute renal failure due to MSSA is still anemic and with HB now down to 7.2GM will elect to transfuse 1 unit p. cells. He does appear pale and weaker than yesterday and needs more assist to transfer today. Creatinine down to 3.4 but BUN over 50? due to occult GI gastric bleed. So far 1600 cc urine output ryanne. On Exam: Vital Signs Temp 98.4 F 04/03/17 04:57 Pulse 89 04/03/17 09:50 Resp 20 04/03/17 04:57 BP 129/54 04/03/17 04:57 Pulse Ox 98 04/03/17 09:50 Intake & Output 04/02/17 04/02/17 04/03/17 11:59 23:59 11:59 Intake Total 60 350 Output Total 960 1600 1600 Balance -900 -1250 -1600 Weight 250 lb 4 oz 247 lb 8 oz Intake: IV 10 10 lfa #22 04/07 10 10 Oral 50 340 Output: Urine 960 1600 1600 Void 960 1600 1600 Other: Voiding Method Urinal Urinal Bowel Movement No No # Bowel Movements 2 Weight Measurement Method Standing Scale Standing Scale Alert but pale an looks tired Chest: Decreased breath sounds at the bases Cor: reg but tachy Abd: Obese; nontender Ext 2-3+ edema Abnormal Lab Results 03/27/17 04/03/17 04/03/17 14:30 05:35 05:35 RBC 2.36 L Hgb 7.2 L Hct 21.2 L RDW 19.1 H Eosinophils % (Manual) 19 H D Potassium 3.4 L BUN 53 H Creatinine 3.4 H Random Glucose 133 H Phosphorus 5.2 H Crossmatch See Detail IMP: Sepsis due to MSSA with acute renal failure Respiratory arrest Acute Cardiac Ischemia post arrest Anemia ? GI source and renal failure S/P CABG X2 NIDDM Plan: I unit P. cells F/U lab Stool [place] Problem List - Problems (1) Acute renal failure (ARF) Code(s): N17.9 - ACUTE KIDNEY FAILURE, UNSPECIFIED Qualifiers: Qualified Code(s): N17.9 - Acute kidney failure, unspecified; N17.9 - Acute kidney failure, unspecified; N17.9 - Acute kidney failure, unspecified (2) GI bleed Code(s): K92.2 - GASTROINTESTINAL HEMORRHAGE, UNSPECIFIED Qualifiers: Qualified Code(s): K92.2 - Gastrointestinal hemorrhage, unspecified; K92.2 - Gastrointestinal hemorrhage, unspecified (3) Cellulitis Code(s): L03.90 - CELLULITIS, UNSPECIFIED Qualifiers: Qualified Code(s): L03.114 - Cellulitis of left upper limb; L03.114 - Cellulitis of left upper limb (4) CAD (coronary artery disease) Code(s): I25.10 - ATHSCL HEART DISEASE OF [place] CORONARY ARTERY W/O ANG PCTRS Qualifiers: Qualified Code(s): I25.110 - Atherosclerotic heart disease of [place] coronary artery with unstable angina pectoris; I25.110 - Atherosclerotic heart disease of [place] coronary artery with unstable angina pectoris; I25.110 - Atherosclerotic heart disease of [place] coronary artery with unstable angina pectoris; I25.110 - Atherosclerotic heart disease of [place] coronary artery with unstable angina pectoris (5) Gout Code(s): M10.9 - GOUT, UNSPECIFIED (6) Hypertension Code(s): I10 - ESSENTIAL (PRIMARY) HYPERTENSION Qualifiers: Qualified Code(s): I10 - Essential (primary) hypertension; I10 - Essential (primary) hypertension; I10 - Essential (primary) hypertension (7) Anemia Code(s): D64.9 - ANEMIA, UNSPECIFIED Qualifiers: Qualified Code(s): D50.0 - Iron deficiency anemia secondary to blood loss (chronic); D50.0 - Iron deficiency anemia secondary to blood loss (chronic ) (8) Leukocytosis Code(s): D72.829 - ELEVATED WHITE BLOOD CELL COUNT, UNSPECIFIED (9) Respiratory arrest Code(s): R09.2 - RESPIRATORY ARREST
[2017-04-03] MEDS ORDERED: PT OWN MED DRAWER 7, Y5N ONE (10:00)
[2017-04-03] MEDS: POLYETHYLENE GLYCOL 3350 119 GM BTL PO SCH (10:07)
[2017-04-03] MEDS: LACTULOSE 20 GM/30 ML UDC (FOR ORAL USE ONLY) PO SCH ×2 (10:10→21:27)
[2017-04-03] MEDS: CARVEDILOL 3.125 MG TABLET (FP) PO SCH ×2 (10:11→21:27)
[2017-04-03] MEDS: CHOLECALCIFEROL (VITAMIN D3) 1,000 UNIT TABLET (FP) PO SCH (10:11)
[2017-04-03] MEDS: ALLOPURINOL 100 MG TABLET (FP) PO SCH (10:11)
[2017-04-03] MEDS ORDERED: POTASSIUM CHLORIDE TABS 20 MEQ TABLET.ER (FP) PO ONE (10:11)
[2017-04-03] MEDS: HEPARIN NA (PORCINE) 5,000 UNITS/ML 1ML VIAL SQ SCH ×2 (10:12→21:28)
[2017-04-03] MEDS: PANTOPRAZOLE 40 MG TABLET (FP) PO SCH (10:12)
[2017-04-03] MEDS ORDERED: INSULIN (NOVOLOG) ASPART 100 UNITS/ML 10ML VIAL ONE (11:57)
--- NOTE | 2017-04-03 12:11 | PN ---
Progress Note (short form) - Note Progress Note: Renal Follow up for JOE Pt seen and examined at the bedside awake and alert no acute complaints no sob, chest pain, abd pain, N/V/D Vital Signs Temperature 98.4 F 04/03/17 10:18 Pulse Rate 74 04/03/17 10:18 Respiratory Rate 20 04/03/17 10:18 Blood Pressure 123/52 04/03/17 10:18 O2 Sat by Pulse Oximetry (%) 98 04/03/17 09:50 Intake & Output 03/31/17 04/01/17 04/02/17 04/03/17 23:59 23:59 23:59 23:59 Intake Total 130 10 410 Output Total 2125 3400 2560 1900 Balance -1994 -3389 -2149 -1899 Weight 253 lb 256 lb 3.2 oz 250 lb 4 oz 247 lb 8 oz Gen: NAD CVS: RRR Lungs: CTA Abd: soft NT/ND Ext: 2+ edema in LE CBC, BMP 04/03/17 05:35 04/03/17 05:35 Laboratory Tests 04/03/17 05:35 Calcium 9.0 Phosphorus 5.2 H Magnesium 1.9 Current Medications Allopurinol (Zyloprim -) 100 mg PO DAILY [facility] Last Admin: 04/03/17 10:11 Dose: 100 mg Carvedilol (Coreg -) 3.125 mg PO BID [facility] Last Admin: 04/03/17 10:11 Dose: 3.125 mg Cholecalciferol (Vitamin D3 -) 2,000 unit PO DAILY [facility] Last Admin: 04/03/17 10:11 Dose: 2,000 unit Heparin Sodium (Porcine) (Heparin -) 5,000 unit SQ BID [facility] Last Admin: 04/03/17 10:12 Dose: 5,000 unit IV Flush (Picc Line Flush) 8 ml IVPUSH PRN PRN PRN Reason: Protocol Insulin Aspart (Novolog Vial Sliding Scale -) 1 vial SQ TIDAC PAULINA PRN Reason: Protocol Last Admin: 04/03/17 12:01 Dose: 2 units Lactulose (Cephulac (Oral Use)) 20 gm PO BID [facility] Last Admin: 04/03/17 10:10 Dose: 20 gm Ondansetron HCl (Zofran Injection) 4 mg IVPB Q8H PRN PRN Reason: NAUSEA Oxycodone HCl (Roxicodone -) 10 mg PO Q3H PRN PRN Reason: PAIN Last Admin: 04/03/17 10:10 Dose: 10 mg Pantoprazole Sodium (Protonix -) 40 mg PO DAILY [facility] Last Admin: 04/03/17 10:12 Dose: 40 mg Polyethylene Glycol (Miralax (For Daily Use) -) 17 gm PO DAILY [facility] Last Admin: 04/03/17 10:07 Dose: Not Given Sevelamer Carbonate (Renvela -) 800 mg PO TIDCM [facility] Last Admin: 04/03/17 12:01 Dose: 800 mg Zinc Acetate/Diphenhydramine (Benadryl 2% Cream) 1 applic TP BID [facility] Last Admin: 04/03/17 10:07 Dose: Not Given A/P 71 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 #Renal Failure with volume overload secondary to ATN Renal function continues to show slow improvement good urine production continue supportive care avoid IV contrast and NSAID exposure Trend BUN/Cr and electrolytes daily supplement K to > 3.5 no diuretics at this time Aubrey Acharya DO Problem List - Problems (1) Cellulitis Code(s): L03.90 - CELLULITIS, UNSPECIFIED Qualifiers: Qualified Code(s): L03.114 - Cellulitis of left upper limb; L03.114 - Cellulitis of left upper limb (2) Acute renal failure (ARF) Code(s): N17.9 - ACUTE KIDNEY FAILURE, UNSPECIFIED Qualifiers: Qualified Code(s): N17.9 - Acute kidney failure, unspecified; N17.9 - Acute kidney failure, unspecified; N17.9 - Acute kidney failure, unspecified (3) CAD (coronary artery disease) Code(s): I25.10 - ATHSCL HEART DISEASE OF [place] CORONARY ARTERY W/O ANG PCTRS Qualifiers: Qualified Code(s): I25.110 - Atherosclerotic heart disease of [place] coronary artery with unstable angina pectoris; I25.110 - Atherosclerotic heart disease of [place] coronary artery with unstable angina pectoris; I25.110 - Atherosclerotic heart disease of [place] coronary artery with unstable angina pectoris; I25.110 - Atherosclerotic heart disease of [place] coronary artery with unstable angina pectoris (4) Hypertension Code(s): I10 - ESSENTIAL (PRIMARY) HYPERTENSION Qualifiers: Qualified Code(s): I10 - Essential (primary) hypertension; I10 - Essential (primary) hypertension; I10 - Essential (primary) hypertension (5) Gout Code(s): M10.9 - GOUT, UNSPECIFIED (6) Leukocytosis Code(s): D72.829 - ELEVATED WHITE BLOOD CELL COUNT, UNSPECIFIED
--- NOTE | 2017-04-03 13:59 | PN ---
Progress Note, Physician History of Present Illness: patient doing much better patient getting transfusion - Current Medication List Current Medications: Active Medications Allopurinol (Zyloprim -) 100 mg PO DAILY [facility] Last Admin: 04/03/17 10:11 Dose: 100 mg Carvedilol (Coreg -) 3.125 mg PO BID [facility] Last Admin: 04/03/17 10:11 Dose: 3.125 mg Cholecalciferol (Vitamin D3 -) 2,000 unit PO DAILY [facility] Last Admin: 04/03/17 10:11 Dose: 2,000 unit Heparin Sodium (Porcine) (Heparin -) 5,000 unit SQ BID [facility] Last Admin: 04/03/17 10:12 Dose: 5,000 unit IV Flush (Picc Line Flush) 8 ml IVPUSH PRN PRN PRN Reason: Protocol Insulin Aspart (Novolog Vial Sliding Scale -) 1 vial SQ TIDAC PAULINA PRN Reason: Protocol Last Admin: 04/03/17 12:01 Dose: 2 units Lactulose (Cephulac (Oral Use)) 20 gm PO BID [facility] Last Admin: 04/03/17 10:10 Dose: 20 gm Ondansetron HCl (Zofran Injection) 4 mg IVPB Q8H PRN PRN Reason: NAUSEA Oxycodone HCl (Roxicodone -) 10 mg PO Q3H PRN PRN Reason: PAIN Last Admin: 04/03/17 10:10 Dose: 10 mg Pantoprazole Sodium (Protonix -) 40 mg PO DAILY [facility] Last Admin: 04/03/17 10:12 Dose: 40 mg Polyethylene Glycol (Miralax (For Daily Use) -) 17 gm PO DAILY [facility] Last Admin: 04/03/17 10:07 Dose: Not Given Sevelamer Carbonate (Renvela -) 800 mg PO TIDCM [facility] Last Admin: 04/03/17 12:01 Dose: 800 mg Zinc Acetate/Diphenhydramine (Benadryl 2% Cream) 1 applic TP BID [facility] Last Admin: 04/03/17 10:07 Dose: Not Given - Objective Vital Signs: Vital Signs Temperature 98.4 F 04/03/17 10:18 Pulse Rate 74 04/03/17 10:18 Respiratory Rate 20 04/03/17 10:18 Blood Pressure 123/52 04/03/17 10:18 O2 Sat by Pulse Oximetry (%) 98 04/03/17 09:50 Constitutional: Yes: No Distress, Calm Cardiovascular: Yes: Regular Rate and Rhythm Respiratory: Yes: Regular, CTA Bilaterally, On Nasal O2 Gastrointestinal: Yes: Normal Bowel Sounds, Soft Musculoskeletal: Yes: WNL Extremities: Yes: Other (left wrist swollen but improving) Neurological: Yes: Alert, Oriented Psychiatric: Yes: Alert Labs: CBC, BMP 04/03/17 05:35 04/03/17 05:35 INR, PTT INR 1.55 (0.82-1.09) H 03/26/17 09:04 Assessment/Plan Problem List - Problems (1) Acute renal failure (ARF) Code(s): N17.9 - ACUTE KIDNEY FAILURE, UNSPECIFIED Qualifiers: Qualified Code(s): N17.9 - Acute kidney failure, unspecified; N17.9 - Acute kidney failure, unspecified; N17.9 - Acute kidney failure, unspecified (2) GI bleed Code(s): K92.2 - GASTROINTESTINAL HEMORRHAGE, UNSPECIFIED Qualifiers: Qualified Code(s): K92.2 - Gastrointestinal hemorrhage, unspecified; K92.2 - Gastrointestinal hemorrhage, unspecified (3) Cellulitis Code(s): L03.90 - CELLULITIS, UNSPECIFIED Qualifiers: Qualified Code(s): L03.114 - Cellulitis of left upper limb; L03.114 - Cellulitis of left upper limb (4) CAD (coronary artery disease) Code(s): I25.10 - ATHSCL HEART DISEASE OF [place] CORONARY ARTERY W/O ANG PCTRS Qualifiers: Qualified Code(s): I25.110 - Atherosclerotic heart disease of [place] coronary artery with unstable angina pectoris; I25.110 - Atherosclerotic heart disease of [place] coronary artery with unstable angina pectoris; I25.110 - Atherosclerotic heart disease of [place] coronary artery with unstable angina pectoris; I25.110 - Atherosclerotic heart disease of [place] coronary artery with unstable angina pectoris (5) Gout Code(s): M10.9 - GOUT, UNSPECIFIED (6) Hypertension Code(s): I10 - ESSENTIAL (PRIMARY) HYPERTENSION Qualifiers: Qualified Code(s): I10 - Essential (primary) hypertension; I10 - Essential (primary) hypertension; I10 - Essential (primary) hypertension (7) Anemia Code(s): D64.9 - ANEMIA, UNSPECIFIED Qualifiers: Qualified Code(s): D50.0 - Iron deficiency anemia secondary to blood loss (chronic); D50.0 - Iron deficiency anemia secondary to blood loss (chronic ) (8) Leukocytosis Code(s): D72.829 - ELEVATED WHITE BLOOD CELL COUNT, UNSPECIFIED (9) Respiratory arrest Code(s): R09.2 - RESPIRATORY ARREST mssa bacteremia sepsis plan continue to monitor wbc normal transfuse as needed rest as per primary team
[2017-04-04] MEDS: oxyCODONE HCL 5 MG TABLET PO PRN ×3 (06:30→22:02)
[2017-04-04] MEDS: INSULIN SLIDING SCALE (NOVOLOG) 1 VIAL SQ SCH ×3 (06:30→17:21)
[2017-04-04 07:58] LABS: BASOPHIL 0.9 % (0-2.0); EOSINOPHIL 20.6 % (0-4.5); MCH 30.6 pg (25.7-33.7); MEAN CELL VOLUME 89.9 fl (80-96); MEAN PLT VOLUME 8.1 fl (7.5-11.1); NEUTROPHILS 53.5 % (42.8-82.8); PLATELET COUNT 184 K/MM3 (134-434); RDW 18.5 % (11.9-15.9); WHITE BLOOD COUNT 9.5 K/mm3 (4.0-10.0)
[2017-04-04] MEDS: SEVELAMER CARBONATE 800 MG TAB (FP) PO SCH ×3 (08:35→17:21)
[2017-04-04 08:48] LABS: ANION GAP 11 (8-16); CALCIUM 8.7 mg/dL (8.5-10.1); CO2 30 mmol/L (21-32); CREATININE 3.3 mg/dL (0.7-1.3); GLUCOSE,RANDOM 151 mg/dL (74-106)
[2017-04-04 08:50] LABS: MAGNESIUM 1.7 mg/dL (1.8-2.4)
[2017-04-04 08:55] LABS: PHOSPHOROUS 4.8 mg/dL (2.5-4.9)
--- NOTE | 2017-04-04 10:05 | PN ---
Progress Note (short form) - Note Progress Note: Renal Follow up for JOE Pt seen and examined at the bedside no overnight events making urine s/p prbc transfusion Vital Signs Temperature 99.2 F 04/04/17 06:00 Pulse Rate 93 H 04/04/17 06:00 Respiratory Rate 20 04/04/17 06:00 Blood Pressure 128/74 04/04/17 06:00 O2 Sat by Pulse Oximetry (%) 98 04/03/17 21:00 Intake & Output 04/01/17 04/02/17 04/03/17 04/04/17 23:59 23:59 23:59 23:59 Intake Total 10 410 470 120 Output Total 3400 2560 3100 640 Balance -8339 -1908 -8089 -520 Weight 256 lb 3.2 oz 250 lb 4 oz 247 lb 8 oz 247 lb 3.2 oz Gen: NAD CVS: RRR Lungs: CTA Abd: soft NT/ND Ext: 2+ edema in LE CBC, BMP 04/04/17 06:00 04/04/17 06:00 Laboratory Tests 04/04/17 06:00 Phosphorus 4.8 Magnesium 1.7 L Current Medications Allopurinol (Zyloprim -) 100 mg PO DAILY [facility] Last Admin: 04/03/17 10:11 Dose: 100 mg Carvedilol (Coreg -) 3.125 mg PO BID [facility] Last Admin: 04/03/17 21:27 Dose: 3.125 mg Cholecalciferol (Vitamin D3 -) 2,000 unit PO DAILY [facility] Last Admin: 04/03/17 10:11 Dose: 2,000 unit Heparin Sodium (Porcine) (Heparin -) 5,000 unit SQ BID [facility] Last Admin: 04/03/17 21:28 Dose: 5,000 unit IV Flush (Picc Line Flush) 8 ml IVPUSH PRN PRN PRN Reason: Protocol Insulin Aspart (Novolog Vial Sliding Scale -) 1 vial SQ TIDAC [facility] PRN Reason: Protocol Last Admin: 04/04/17 06:30 Dose: 2 units Lactulose (Cephulac (Oral Use)) 20 gm PO BID [facility] Last Admin: 04/03/17 21:27 Dose: Not Given Magnesium Sulfate (Magnesium Sulfate) 1 gm IVPB ONCE ONE Stop: 04/04/17 10:16 Ondansetron HCl (Zofran Injection) 4 mg IVPB Q8H PRN PRN Reason: NAUSEA Oxycodone HCl (Roxicodone -) 10 mg PO Q3H PRN PRN Reason: PAIN Last Admin: 04/04/17 06:30 Dose: 10 mg Pantoprazole Sodium (Protonix -) 40 mg PO DAILY [facility] Last Admin: 04/03/17 10:12 Dose: 40 mg Polyethylene Glycol (Miralax (For Daily Use) -) 17 gm PO DAILY [facility] Last Admin: 04/03/17 10:07 Dose: Not Given Sevelamer Carbonate (Renvela -) 800 mg PO TIDCM [facility] Last Admin: 04/04/17 08:35 Dose: 800 mg Zinc Acetate/Diphenhydramine (Benadryl 2% Cream) 1 applic TP BID [facility] Last Admin: 04/03/17 21:27 Dose: Not Given A/P 71 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 #Renal Failure with volume overload secondary to ATN renal function slowly improving off diuretics and ivf trend BU/Cr and electrolytes expect that it may take several weeks for the Cr to settle at its new baseline continue supportive care Aubrey Acharya DO Problem List - Problems (1) Cellulitis Code(s): L03.90 - CELLULITIS, UNSPECIFIED Qualifiers: Qualified Code(s): L03.114 - Cellulitis of left upper limb; L03.114 - Cellulitis of left upper limb (2) Acute renal failure (ARF) Code(s): N17.9 - ACUTE KIDNEY FAILURE, UNSPECIFIED Qualifiers: Qualified Code(s): N17.9 - Acute kidney failure, unspecified; N17.9 - Acute kidney failure, unspecified; N17.9 - Acute kidney failure, unspecified (3) CAD (coronary artery disease) Code(s): I25.10 - ATHSCL HEART DISEASE OF [place] CORONARY ARTERY W/O ANG PCTRS Qualifiers: Qualified Code(s): I25.110 - Atherosclerotic heart disease of [place] coronary artery with unstable angina pectoris; I25.110 - Atherosclerotic heart disease of [place] coronary artery with unstable angina pectoris; I25.110 - Atherosclerotic heart disease of [place] coronary artery with unstable angina pectoris; I25.110 - Atherosclerotic heart disease of [place] coronary artery with unstable angina pectoris (4) Hypertension Code(s): I10 - ESSENTIAL (PRIMARY) HYPERTENSION Qualifiers: Qualified Code(s): I10 - Essential (primary) hypertension; I10 - Essential (primary) hypertension; I10 - Essential (primary) hypertension (5) Gout Code(s): M10.9 - GOUT, UNSPECIFIED (6) Leukocytosis Code(s): D72.829 - ELEVATED WHITE BLOOD CELL COUNT, UNSPECIFIED
[2017-04-04] MEDS: CHOLECALCIFEROL (VITAMIN D3) 1,000 UNIT TABLET (FP) PO SCH (10:11)
[2017-04-04] MEDS: LACTULOSE 20 GM/30 ML UDC (FOR ORAL USE ONLY) PO SCH ×2 (10:11→22:02)
[2017-04-04] MEDS: HEPARIN NA (PORCINE) 5,000 UNITS/ML 1ML VIAL SQ SCH ×2 (10:11→22:03)
[2017-04-04] MEDS: CARVEDILOL 3.125 MG TABLET (FP) PO SCH ×2 (10:11→22:02)
[2017-04-04] MEDS: ALLOPURINOL 100 MG TABLET (FP) PO SCH (10:11)
[2017-04-04] MEDS: PANTOPRAZOLE 40 MG TABLET (FP) PO SCH (10:11)
[2017-04-04] MEDS ORDERED: MAGNESIUM SULF 50% (8.12 MEQ/2 ML-1 GM VIAL) IVPB ONE (10:15)
[2017-04-04] MEDS: POLYETHYLENE GLYCOL 3350 119 GM BTL PO SCH (10:16)
--- NOTE | 2017-04-04 11:56 | PN ---
Progress Note, Physician Chief Complaint: some fatigue but feels better after blood transfusion. History of Present Illness: Patient with acute renal failure and sepsis from MSSA is slowly improving off dialysis but still required 1 unit of packed cells yesterday for Hb 7.2. Creatinine slowly falling to 3.3 and hemoglobin up to 8.2 GM today. Some fatigue but had a shower, shaved and had BM. Stool Guiac yesterday was negative. Magnesium 1.7 and R was ordered. - Current Medication List Current Medications: Active Medications Allopurinol (Zyloprim -) 100 mg PO DAILY [facility] Last Admin: 04/04/17 10:11 Dose: 100 mg Carvedilol (Coreg -) 3.125 mg PO BID [facility] Last Admin: 04/04/17 10:11 Dose: 3.125 mg Cholecalciferol (Vitamin D3 -) 2,000 unit PO DAILY [facility] Last Admin: 04/04/17 10:11 Dose: 2,000 unit Heparin Sodium (Porcine) (Heparin -) 5,000 unit SQ BID [facility] Last Admin: 04/04/17 10:11 Dose: 5,000 unit IV Flush (Picc Line Flush) 8 ml IVPUSH PRN PRN PRN Reason: Protocol Insulin Aspart (Novolog Vial Sliding Scale -) 1 vial SQ TIDAC [facility] PRN Reason: Protocol Last Admin: 04/04/17 06:30 Dose: 2 units Lactulose (Cephulac (Oral Use)) 20 gm PO BID [facility] Last Admin: 04/04/17 10:11 Dose: 20 gm Ondansetron HCl (Zofran Injection) 4 mg IVPB Q8H PRN PRN Reason: NAUSEA Oxycodone HCl (Roxicodone -) 10 mg PO Q3H PRN PRN Reason: PAIN Last Admin: 04/04/17 06:30 Dose: 10 mg Pantoprazole Sodium (Protonix -) 40 mg PO DAILY [facility] Last Admin: 04/04/17 10:11 Dose: 40 mg Polyethylene Glycol (Miralax (For Daily Use) -) 17 gm PO DAILY [facility] Last Admin: 04/04/17 10:16 Dose: Not Given Sevelamer Carbonate (Renvela -) 800 mg PO TIDCM [facility] Last Admin: 04/04/17 08:35 Dose: 800 mg Zinc Acetate/Diphenhydramine (Benadryl 2% Cream) 1 applic TP BID [facility] Last Admin: 04/04/17 09:47 Dose: Not Given - Objective Vital Signs: Vital Signs Temperature 98.6 F 04/04/17 10:10 Pulse Rate 93 H 04/04/17 11:29 Respiratory Rate 18 04/04/17 10:10 Blood Pressure 117/78 04/04/17 10:10 O2 Sat by Pulse Oximetry (%) 98 04/04/17 11:29 Constitutional: Yes: Calm, Pallor Eyes: Yes: Sclera Icterus Cardiovascular: Yes: Regular Rate and Rhythm Respiratory: Yes: Diminished (at bases) Gastrointestinal: Yes: Soft, Abdomen, Obese. No: Tenderness Edema: LLE: 2+, RLE: 2+ Integumentary: Yes: Erythema (slowly fading on anterior tibias) Neurological: Yes: Alert, Oriented ...Motor Strength: LUE (hand strength better but coolection on dorsum left hand has recurred.) Labs: CBC, BMP 04/04/17 06:00 04/04/17 06:00 INR, PTT INR 1.55 (0.82-1.09) H 03/26/17 09:04 Problem List - Problems (1) Acute renal failure (ARF) Assessment/Plan: Creatinine down to 3.3 Urine output continues brisk. Code(s): N17.9 - ACUTE KIDNEY FAILURE, UNSPECIFIED Qualifiers: Qualified Code(s): N17.9 - Acute kidney failure, unspecified; N17.9 - Acute kidney failure, unspecified; N17.9 - Acute kidney failure, unspecified (2) GI bleed Assessment/Plan: Stool Guiac was negative yesterday but he still neede 1 unit p. cells for hemoglobin 7.2GM Code(s): K92.2 - GASTROINTESTINAL HEMORRHAGE, UNSPECIFIED Qualifiers: Qualified Code(s): K92.2 - Gastrointestinal hemorrhage, unspecified; K92.2 - Gastrointestinal hemorrhage, unspecified (3) Cellulitis Assessment/Plan: Resolved left hand and wrist. Code(s): L03.90 - CELLULITIS, UNSPECIFIED Qualifiers: Qualified Code(s): L03.114 - Cellulitis of left upper limb; L03.114 - Cellulitis of left upper limb (4) CAD (coronary artery disease) Assessment/Plan: Decreased EF on Echo post arrest Code(s): I25.10 - ATHSCL HEART DISEASE OF [place] CORONARY ARTERY W/O ANG PCTRS Qualifiers: Qualified Code(s): I25.110 - Atherosclerotic heart disease of [place] coronary artery with unstable angina pectoris; I25.110 - Atherosclerotic heart disease of [place] coronary artery with unstable angina pectoris; I25.110 - Atherosclerotic heart disease of [place] coronary artery with unstable angina pectoris; I25.110 - Atherosclerotic heart disease of [place] coronary artery with unstable angina pectoris (5) Gout Assessment/Plan: On Rx. Code(s): M10.9 - GOUT, UNSPECIFIED (6) Hypertension Code(s): I10 - ESSENTIAL (PRIMARY) HYPERTENSION Qualifiers: Qualified Code(s): I10 - Essential (primary) hypertension; I10 - Essential (primary) hypertension; I10 - Essential (primary) hypertension (7) Anemia Assessment/Plan: hemoglobin improved to 8.2GM after blood transfusion yesterday. Code(s): D64.9 - ANEMIA, UNSPECIFIED Qualifiers: Qualified Code(s): D50.0 - Iron deficiency anemia secondary to blood loss (chronic); D50.0 - Iron deficiency anemia secondary to blood loss (chronic ) (8) Leukocytosis Code(s): D72.829 - ELEVATED WHITE BLOOD CELL COUNT, UNSPECIFIED (9) Respiratory arrest Assessment/Plan: Still SOB on exertion. Code(s): R09.2 - RESPIRATORY ARREST
--- NOTE | 2017-04-04 11:57 | PN ---
Progress Note (short form) - Note Progress Note: Feels overall better. No acute events overnight. No CP or SOB. Intake & Output 04/01/17 04/02/17 04/03/17 04/04/17 23:59 23:59 23:59 23:59 Intake Total 10 410 470 120 Output Total 3400 2560 3100 640 Balance -3390 -2150 -2630 -520 Weight 256 lb 3.2 oz 250 lb 4 oz 247 lb 8 oz 247 lb 3.2 oz Last Vital Signs Temp Pulse Resp BP Pulse Ox 98.6 F 93 H 18 117/78 98 04/04/17 10:10 04/04/17 11:29 04/04/17 10:10 04/04/17 10:10 04/04/17 11:29 Active Medications Allopurinol (Zyloprim -) 100 mg PO DAILY [facility] Last Admin: 04/04/17 10:11 Dose: 100 mg Carvedilol (Coreg -) 3.125 mg PO BID [facility] Last Admin: 04/04/17 10:11 Dose: 3.125 mg Cholecalciferol (Vitamin D3 -) 2,000 unit PO DAILY [facility] Last Admin: 04/04/17 10:11 Dose: 2,000 unit Heparin Sodium (Porcine) (Heparin -) 5,000 unit SQ BID [facility] Last Admin: 04/04/17 10:11 Dose: 5,000 unit IV Flush (Picc Line Flush) 8 ml IVPUSH PRN PRN PRN Reason: Protocol Insulin Aspart (Novolog Vial Sliding Scale -) 1 vial SQ TIDAC [facility] PRN Reason: Protocol Last Admin: 04/04/17 06:30 Dose: 2 units Lactulose (Cephulac (Oral Use)) 20 gm PO BID [facility] Last Admin: 04/04/17 10:11 Dose: 20 gm Ondansetron HCl (Zofran Injection) 4 mg IVPB Q8H PRN PRN Reason: NAUSEA Oxycodone HCl (Roxicodone -) 10 mg PO Q3H PRN PRN Reason: PAIN Last Admin: 04/04/17 06:30 Dose: 10 mg Pantoprazole Sodium (Protonix -) 40 mg PO DAILY [facility] Last Admin: 04/04/17 10:11 Dose: 40 mg Polyethylene Glycol (Miralax (For Daily Use) -) 17 gm PO DAILY [facility] Last Admin: 04/04/17 10:16 Dose: Not Given Sevelamer Carbonate (Renvela -) 800 mg PO TIDCM [facility] Last Admin: 04/04/17 08:35 Dose: 800 mg Zinc Acetate/Diphenhydramine (Benadryl 2% Cream) 1 applic TP BID [facility] Last Admin: 04/04/17 09:47 Dose: Not Given Exam: General: awake, alert, NAD HEENT: PERRL, no JVD CV: s1, s2 Pulm: diminished in bases Abd: obese Ext: Improving edema Neuro: grossly intact Laboratory Results - last 24 hr 04/03/17 04/03/17 04/03/17 10:05 11:59 17:09 WBC Corrected WBC (auto) RBC Hgb Hct MCV MCH MCHC RDW Plt Count MPV Neutrophils % Lymphocytes % Monocytes % Eosinophils % Basophils % Differential Comment Platelet Estimate Platelet Comment RBC Morphology Sodium Potassium Chloride Carbon Dioxide Anion Gap BUN Creatinine POC Glucometer 199 167 Random Glucose Calcium Phosphorus Magnesium Total Bilirubin ALT Blood Type O NEGATIVE Antibody Screen Negative Crossmatch See Detail 04/04/17 04/04/17 04/04/17 05:34 06:00 06:00 WBC 9.5 Corrected WBC (auto) RBC 2.66 L Hgb 8.2 L D Hct 23.9 L MCV 89.9 MCH 30.6 MCHC 34.0 RDW 18.5 H Plt Count 184 MPV 8.1 Neutrophils % 53.5 Lymphocytes % 14.8 Monocytes % 10.2 Eosinophils % 20.6 H* Basophils % 0.9 Differential Comment Platelet Estimate Platelet Comment RBC Morphology Sodium 140 Potassium 3.9 Chloride 99 Carbon Dioxide 30 Anion Gap 11 BUN 55 H Creatinine 3.3 H POC Glucometer 162 Random Glucose 151 H Calcium 8.7 Phosphorus Magnesium Total Bilirubin ALT Blood Type Antibody Screen Crossmatch 04/04/17 04/04/17 06:00 06:00 WBC Cancelled Corrected WBC (auto) Cancelled RBC Cancelled Hgb Cancelled Hct Cancelled MCV Cancelled MCH Cancelled MCHC Cancelled RDW Cancelled Plt Count Cancelled MPV Cancelled Neutrophils % Lymphocytes % Monocytes % Eosinophils % Basophils % Differential Comment Cancelled Platelet Estimate Cancelled Platelet Comment Cancelled RBC Morphology Cancelled Sodium Potassium Chloride Carbon Dioxide Anion Gap BUN Creatinine POC Glucometer Random Glucose Calcium Phosphorus 4.8 Magnesium 1.7 L Total Bilirubin 3.0 H D ALT 45 D Blood Type Antibody Screen Crossmatch Problem List - Problems (1) Cellulitis Code(s): L03.90 - CELLULITIS, UNSPECIFIED Qualifiers: Site of cellulitis: extremity Site of cellulitis of extremity: upper extremity Laterality: left Qualified Code(s): L03.114 - Cellulitis of left upper limb (2) Acute renal failure (ARF) Code(s): N17.9 - ACUTE KIDNEY FAILURE, UNSPECIFIED (3) CAD (coronary artery disease) Code(s): I25.10 - ATHSCL HEART DISEASE OF [place] CORONARY ARTERY W/O ANG PCTRS (4) Gout Code(s): M10.9 - GOUT, UNSPECIFIED (5) Hypertension Code(s): I10 - ESSENTIAL (PRIMARY) HYPERTENSION (6) Hyponatremia Code(s): E87.1 - HYPO-OSMOLALITY AND HYPONATREMIA IMP: CAD S/P CABG x2 Gout on allopurinol/colchicine HTN HLD DM II Fatty liver BPH MSSA bacteremia O2 as needed Monitor off HD per Renal I & O Daily weight Glycemic control VTE prophylaxis Ambulate D/C planning Dr Sandoval
--- NOTE | 2017-04-04 12:12 | PN ---
Progress Note, Physician History of Present Illness: Pt seen and examined. Charts and labs reviewed. Events noted. He is improving. Has no specific complaints. Is s/p transfusion yesterday. Off hemodialysis. No shortness of breath, abd pain/diarrhea, no noted sign of active bleed. - Current Medication List Current Medications: Active Medications Allopurinol (Zyloprim -) 100 mg PO DAILY [facility] Last Admin: 04/04/17 10:11 Dose: 100 mg Carvedilol (Coreg -) 3.125 mg PO BID [facility] Last Admin: 04/04/17 10:11 Dose: 3.125 mg Cholecalciferol (Vitamin D3 -) 2,000 unit PO DAILY [facility] Last Admin: 04/04/17 10:11 Dose: 2,000 unit Heparin Sodium (Porcine) (Heparin -) 5,000 unit SQ BID [facility] Last Admin: 04/04/17 10:11 Dose: 5,000 unit IV Flush (Picc Line Flush) 8 ml IVPUSH PRN PRN PRN Reason: Protocol Insulin Aspart (Novolog Vial Sliding Scale -) 1 vial SQ TIDAC [facility] PRN Reason: Protocol Last Admin: 04/04/17 11:59 Dose: 2 units Lactulose (Cephulac (Oral Use)) 20 gm PO BID [facility] Last Admin: 04/04/17 10:11 Dose: 20 gm Ondansetron HCl (Zofran Injection) 4 mg IVPB Q8H PRN PRN Reason: NAUSEA Oxycodone HCl (Roxicodone -) 10 mg PO Q3H PRN PRN Reason: PAIN Last Admin: 04/04/17 06:30 Dose: 10 mg Pantoprazole Sodium (Protonix -) 40 mg PO DAILY [facility] Last Admin: 04/04/17 10:11 Dose: 40 mg Polyethylene Glycol (Miralax (For Daily Use) -) 17 gm PO DAILY [facility] Last Admin: 04/04/17 10:16 Dose: Not Given Sevelamer Carbonate (Renvela -) 800 mg PO TIDCM [facility] Last Admin: 04/04/17 11:58 Dose: 800 mg Zinc Acetate/Diphenhydramine (Benadryl 2% Cream) 1 applic TP BID [facility] Last Admin: 04/04/17 09:47 Dose: Not Given - Objective Vital Signs: Vital Signs Temperature 98.6 F 04/04/17 10:10 Pulse Rate 93 H 04/04/17 11:29 Respiratory Rate 18 04/04/17 10:10 Blood Pressure 117/78 04/04/17 10:10 O2 Sat by Pulse Oximetry (%) 98 04/04/17 11:29 Constitutional: Yes: Well Nourished, No Distress HENT: Yes: WNL Neck: Yes: WNL Cardiovascular: Yes: Regular Rate and Rhythm Respiratory: Yes: Regular Gastrointestinal: Yes: Normal Bowel Sounds, Soft Genitourinary: Yes: WNL Musculoskeletal: Yes: Joint Swelling (Left wrist with decreased swelling, no erythema, improved ROM) Extremities: Yes: Erythema (b/l LE erythema, improving) Edema: Yes (mild edema, improving) Neurological: Yes: Alert, Oriented Psychiatric: Yes: Alert, Oriented Labs: CBC, BMP 04/04/17 06:00 04/04/17 06:00 INR, PTT INR 1.55 (0.82-1.09) H 03/26/17 09:04 Problem List - Problems (1) Cellulitis Code(s): L03.90 - CELLULITIS, UNSPECIFIED Qualifiers: Qualified Code(s): L03.114 - Cellulitis of left upper limb; L03.114 - Cellulitis of left upper limb (2) Leukocytosis Code(s): D72.829 - ELEVATED WHITE BLOOD CELL COUNT, UNSPECIFIED (3) Septic arthritis Code(s): M00.9 - PYOGENIC ARTHRITIS, UNSPECIFIED (4) MSSA (methicillin susceptible Staphylococcus aureus) infection Code(s): A49.01 - METHICILLIN SUSCEP STAPH INFECTION, UNSP SITE Assessment/Plan Sepsis/ MSSA bacteremia Lt wrist septic arthritis Leukocytosis- resolved anemia s/p transfusion ARF - now off antibiotics NV -- pt clinically improving -- continue monitor case d/w pts at bedside, PMD
--- NOTE | 2017-04-04 13:50 | PN ---
Progress Note, Physician Chief Complaint: Not in distress History of Present Illness: Patient was seen and examined. Awake and alert. Chart was reviewed Denies chest pain, shortness of breath or palpitations Tolerating therapy - Current Medication List Current Medications: Active Medications Allopurinol (Zyloprim -) 100 mg PO DAILY [facility] Last Admin: 04/04/17 10:11 Dose: 100 mg Carvedilol (Coreg -) 3.125 mg PO BID [facility] Last Admin: 04/04/17 10:11 Dose: 3.125 mg Cholecalciferol (Vitamin D3 -) 2,000 unit PO DAILY [facility] Last Admin: 04/04/17 10:11 Dose: 2,000 unit Heparin Sodium (Porcine) (Heparin -) 5,000 unit SQ BID [facility] Last Admin: 04/04/17 10:11 Dose: 5,000 unit IV Flush (Picc Line Flush) 8 ml IVPUSH PRN PRN PRN Reason: Protocol Insulin Aspart (Novolog Vial Sliding Scale -) 1 vial SQ TIDAC [facility] PRN Reason: Protocol Last Admin: 04/04/17 11:59 Dose: 2 units Lactulose (Cephulac (Oral Use)) 20 gm PO BID [facility] Last Admin: 04/04/17 10:11 Dose: 20 gm Ondansetron HCl (Zofran Injection) 4 mg IVPB Q8H PRN PRN Reason: NAUSEA Oxycodone HCl (Roxicodone -) 10 mg PO Q3H PRN PRN Reason: PAIN Last Admin: 04/04/17 06:30 Dose: 10 mg Pantoprazole Sodium (Protonix -) 40 mg PO DAILY [facility] Last Admin: 04/04/17 10:11 Dose: 40 mg Polyethylene Glycol (Miralax (For Daily Use) -) 17 gm PO DAILY [facility] Last Admin: 04/04/17 10:16 Dose: Not Given Sevelamer Carbonate (Renvela -) 800 mg PO TIDCM [facility] Last Admin: 04/04/17 11:58 Dose: 800 mg Zinc Acetate/Diphenhydramine (Benadryl 2% Cream) 1 applic TP BID [facility] Last Admin: 04/04/17 09:47 Dose: Not Given - Objective Vital Signs: Vital Signs Temperature 98.6 F 04/04/17 10:10 Pulse Rate 93 H 04/04/17 11:29 Respiratory Rate 18 04/04/17 10:10 Blood Pressure 117/78 04/04/17 10:10 O2 Sat by Pulse Oximetry (%) 98 04/04/17 11:29 Neck: Yes: Supple Cardiovascular: Yes: Regular Rate and Rhythm, S1, S2 Respiratory: Yes: CTA Bilaterally Gastrointestinal: Yes: Normal Bowel Sounds, Soft. No: Tenderness Edema: Yes Additional Findings/Remarks: - Review of Systems Constitutional: no symptoms reported Respiratory: denies: Cough denies: Sputum Production Cardiovascular: denies: chest pain, SOB, palpitations Gastrointestinal: denies Nausea, Vomiting, Diarrhea, Constipation or Abdominal Pain Genitourinary: No symptoms reported Musculoskeletal: No symptoms reported Endocrine: No symptoms reported Labs: CBC, BMP 04/04/17 06:00 04/04/17 06:00 Problem List - Problems (1) Abnormal liver enzymes Code(s): R74.8 - ABNORMAL LEVELS OF OTHER SERUM ENZYMES (2) Acute renal failure (ARF) Code(s): N17.9 - ACUTE KIDNEY FAILURE, UNSPECIFIED Qualifiers: Qualified Code(s): N17.9 - Acute kidney failure, unspecified; N17.9 - Acute kidney failure, unspecified; N17.9 - Acute kidney failure, unspecified (3) Anemia Code(s): D64.9 - ANEMIA, UNSPECIFIED Qualifiers: Qualified Code(s): D50.0 - Iron deficiency anemia secondary to blood loss (chronic); D50.0 - Iron deficiency anemia secondary to blood loss (chronic ) (4) CAD (coronary artery disease) Code(s): I25.10 - ATHSCL HEART DISEASE OF [place] CORONARY ARTERY W/O ANG PCTRS Qualifiers: Qualified Code(s): I25.110 - Atherosclerotic heart disease of [place] coronary artery with unstable angina pectoris; I25.110 - Atherosclerotic heart disease of [place] coronary artery with unstable angina pectoris; I25.110 - Atherosclerotic heart disease of [place] coronary artery with unstable angina pectoris; I25.110 - Atherosclerotic heart disease of [place] coronary artery with unstable angina pectoris (5) Cellulitis Code(s): L03.90 - CELLULITIS, UNSPECIFIED Qualifiers: Qualified Code(s): L03.114 - Cellulitis of left upper limb; L03.114 - Cellulitis of left upper limb (6) Hyperlipidemia Code(s): E78.5 - HYPERLIPIDEMIA, UNSPECIFIED Qualifiers: Qualified Code(s): E78.00 - Pure hypercholesterolemia, unspecified; E78.00 - Pure hypercholesterolemia, unspecified; E78.00 - Pure hypercholesterolemia, unspecified; E78.0 - Pure hypercholesterolemia (7) Hypertension Code(s): I10 - ESSENTIAL (PRIMARY) HYPERTENSION Qualifiers: Qualified Code(s): I10 - Essential (primary) hypertension; I10 - Essential (primary) hypertension; I10 - Essential (primary) hypertension (8) MSSA (methicillin susceptible Staphylococcus aureus) infection Code(s): A49.01 - METHICILLIN SUSCEP STAPH INFECTION, UNSP SITE (9) Respiratory arrest before cardiac arrest Code(s): I46.9 - CARDIAC ARREST, CAUSE UNSPECIFIED R09.2 - RESPIRATORY ARREST (10) Hx of CABG Code(s): Z95.1 - PRESENCE OF AORTOCORONARY BYPASS GRAFT Assessment/Plan 1. Cardiopulmonary arrest with PEA (Pulseless Electrical Activity) post resuscitation and post respiratory failure 2. Abnormal EKG, unclear underlying atrial rhythm now resolved most likely related profound metabolic/lactic acidosis - resolved 3. CAD post AK/CABG angina pectoris with evidence of demand ischemic injury in context of acute pulmonary edema - resolved 4. Moderate LV systolic dysfunction with acute class III-IV NYHA classification LV failure - improved 5. Acute renal failure now off HD 6. Anemia, history of GI bleed related to peptic ulcer disease, post transfusion 7. History of HTN - 8. DM 9. Hypercholesterolemia 10. Cellulitis with recent MSSA sepsis syndrome with septic shock and now with left psoas collection s/p drainage 11. Hyponatremia and hypokalemia 12. Abnormal LFTs PLAN: 1. Continue Heparin SQ 2. Off Demadex. Continue to monitor renal functiona and electrolytes 3. Continue Coreg with uptitration as tolerated. Restart Statin once LFT recovers 4. Transfusion PRN to maintain Hgb equal or > 8.0 5. PT and eventual rehab Follow up in office once discharged Jonnathan Nogueira MD
[2017-04-05] MEDS: oxyCODONE HCL 5 MG TABLET PO PRN ×2 (06:27→18:33)
[2017-04-05] MEDS: INSULIN SLIDING SCALE (NOVOLOG) 1 VIAL SQ SCH ×3 (06:39→17:36)
[2017-04-05 07:41] LABS: EOSINOPHIL 19.1 % (0-4.5); MCH 30.6 pg (25.7-33.7); MCHC 34.2 g/dl (32.0-35.9); MEAN CELL VOLUME 89.5 fl (80-96); NEUTROPHILS 56.4 % (42.8-82.8); PLATELET COUNT 191 K/MM3 (134-434); RDW 17.6 % (11.9-15.9); WHITE BLOOD COUNT 9.5 K/mm3 (4.0-10.0)
[2017-04-05 07:53] LABS: ANION GAP 13 (8-16); CALCIUM 8.7 mg/dL (8.5-10.1); CO2 29 mmol/L (21-32); CREATININE 3.2 mg/dL (0.7-1.3); GLUCOSE,RANDOM 147 mg/dL (74-106)
[2017-04-05] MEDS: SEVELAMER CARBONATE 800 MG TAB (FP) PO SCH (08:25)
[2017-04-05] MEDS ORDERED: PT OWN MED DRAWER 7, Y5N ONE ×2 (09:17→19:04)
[2017-04-05] MEDS: ALLOPURINOL 100 MG TABLET (FP) PO SCH (09:23)
[2017-04-05] MEDS: CARVEDILOL 3.125 MG TABLET (FP) PO SCH ×2 (09:23→22:01)
[2017-04-05] MEDS: CHOLECALCIFEROL (VITAMIN D3) 1,000 UNIT TABLET (FP) PO SCH (09:23)
[2017-04-05] MEDS: LACTULOSE 20 GM/30 ML UDC (FOR ORAL USE ONLY) PO SCH ×2 (09:23→22:01)
[2017-04-05] MEDS: PANTOPRAZOLE 40 MG TABLET (FP) PO SCH (09:23)
[2017-04-05] MEDS: HEPARIN NA (PORCINE) 5,000 UNITS/ML 1ML VIAL SQ SCH ×2 (09:24→22:01)
--- NOTE | 2017-04-05 09:30 | PN ---
Progress Note (short form) - Note Progress Note: Renal Follow up for JOE Pt seen and examined at the bedside no acute complaints Vital Signs Temperature 98.4 F 04/05/17 06:00 Pulse Rate 72 04/05/17 06:00 Respiratory Rate 18 04/05/17 06:00 Blood Pressure 119/56 04/05/17 06:00 O2 Sat by Pulse Oximetry (%) 98 04/04/17 20:24 Intake & Output 04/02/17 04/03/17 04/04/17 04/05/17 23:59 23:59 23:59 23:59 Intake Total 410 470 220 Output Total 2560 3100 191 650 Balance -2150 -2630 -1695 -650 Weight 250 lb 4 oz 247 lb 8 oz 247 lb 3.2 oz 247 lb 2 oz Gen: NAD CVS: RRR Lungs: CTA Abd: soft NT/ND Ext: 2+ edema in LE CBC, BMP 04/05/17 06:40 04/05/17 06:40 Current Medications Allopurinol (Zyloprim -) 100 mg PO DAILY [facility] Last Admin: 04/05/17 09:23 Dose: 100 mg Carvedilol (Coreg -) 3.125 mg PO BID [facility] Last Admin: 04/05/17 09:23 Dose: 3.125 mg Cholecalciferol (Vitamin D3 -) 2,000 unit PO DAILY [facility] Last Admin: 04/05/17 09:23 Dose: 2,000 unit Heparin Sodium (Porcine) (Heparin -) 5,000 unit SQ BID [facility] Last Admin: 04/05/17 09:24 Dose: 5,000 unit IV Flush (Picc Line Flush) 8 ml IVPUSH PRN PRN PRN Reason: Protocol Insulin Aspart (Novolog Vial Sliding Scale -) 1 vial SQ TIDAC [facility]UL[facility] PRN Reason: Protocol Last Admin: 04/05/17 06:39 Dose: 2 units Lactulose (Cephulac (Oral Use)) 20 gm PO BID [facility] Last Admin: 04/05/17 09:23 Dose: 20 gm Ondansetron HCl (Zofran Injection) 4 mg IVPB Q8H PRN PRN Reason: NAUSEA Oxycodone HCl (Roxicodone -) 10 mg PO Q3H PRN PRN Reason: PAIN Last Admin: 04/05/17 06:27 Dose: 10 mg Pantoprazole Sodium (Protonix -) 40 mg PO DAILY [facility] Last Admin: 04/05/17 09:23 Dose: 40 mg Polyethylene Glycol (Miralax (For Daily Use) -) 17 gm PO DAILY [facility] Last Admin: 04/04/17 10:16 Dose: Not Given Sevelamer Carbonate (Renvela -) 800 mg PO TIDCM [facility] Last Admin: 04/05/17 08:25 Dose: 800 mg Zinc Acetate/Diphenhydramine (Benadryl 2% Cream) 1 applic TP BID [facility] Last Admin: 04/04/17 22:03 Dose: Not Given A/P 71 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 #Renal Failure with volume overload secondary to ATN Renal function improving good urine output, pt not polyuric no diuretics at this time continue fluid restriction trend BUN/Cr d/c phos binder D/C planning per primary Aubrey Acharya DO Problem List - Problems (1) Cellulitis Code(s): L03.90 - CELLULITIS, UNSPECIFIED Qualifiers: Qualified Code(s): L03.114 - Cellulitis of left upper limb; L03.114 - Cellulitis of left upper limb (2) Acute renal failure (ARF) Code(s): N17.9 - ACUTE KIDNEY FAILURE, UNSPECIFIED Qualifiers: Qualified Code(s): N17.9 - Acute kidney failure, unspecified; N17.9 - Acute kidney failure, unspecified; N17.9 - Acute kidney failure, unspecified (3) CAD (coronary artery disease) Code(s): I25.10 - ATHSCL HEART DISEASE OF [place] CORONARY ARTERY W/O ANG PCTRS Qualifiers: Qualified Code(s): I25.110 - Atherosclerotic heart disease of [place] coronary artery with unstable angina pectoris; I25.110 - Atherosclerotic heart disease of [place] coronary artery with unstable angina pectoris; I25.110 - Atherosclerotic heart disease of [place] coronary artery with unstable angina pectoris; I25.110 - Atherosclerotic heart disease of [place] coronary artery with unstable angina pectoris (4) Hypertension Code(s): I10 - ESSENTIAL (PRIMARY) HYPERTENSION Qualifiers: Qualified Code(s): I10 - Essential (primary) hypertension; I10 - Essential (primary) hypertension; I10 - Essential (primary) hypertension (5) Gout Code(s): M10.9 - GOUT, UNSPECIFIED (6) Leukocytosis Code(s): D72.829 - ELEVATED WHITE BLOOD CELL COUNT, UNSPECIFIED
[2017-04-05] MEDS: POLYETHYLENE GLYCOL 3350 119 GM BTL PO SCH (10:00)
--- NOTE | 2017-04-05 11:37 | PN ---
Progress Note (short form) - Note Progress Note: Patient with Acute Renal Failure from MSSA sepsis, GI Bleed and hx. Respiratory Arrest and Acute Cardiac event is slowly improving with Creatinine now 3.2 and Hb low but stable at 8.2GM. Still a great deal of body edema and so far from last midnight has put out 1800 cc of urine. Still fatigue and sleeping off and on. On Exam: Vital Signs Temp 98.7 F 04/05/17 10:00 Pulse 76 04/05/17 11:10 Resp 18 04/05/17 10:00 BP 123/57 04/05/17 10:00 Pulse Ox 97 04/05/17 11:10 Intake & Output 04/04/17 04/04/17 04/05/17 11:59 23:59 11:59 Intake Total 120 100 Output Total 640 1275 650 Balance -520 -1175 -650 Weight 247 lb 3.2 oz 247 lb 2 oz Intake: Oral 120 100 Output: Urine 640 1275 650 Void 640 1275 650 Other: Voiding Method Urinal Urinal Urinal Bowel Movement No No # Bowel Movements 2 Weight Measurement Method Standing Scale Alert ? slightly icteric Chest: Clearer Cor: Reg Ext:2+ edema right leg; 1+ left leg edema Still 3+ body edema from the waist and upper thighs. Abnormal Lab Results 04/05/17 04/05/17 06:40 06:40 RBC 2.66 L Hgb 8.2 L Hct 23.8 L RDW 17.6 H Eosinophils % 19.1 H BUN 52 H Creatinine 3.2 H Random Glucose 147 H IMP: Acute Renal Failure from MSSA Sepsis GI Bleed Acute and Chronic Anemia Respiratory Arrest S/P CABG X2 and acute cardiac event post arrest Gout Liver Ischemia post arrest. Plan: F/U Lab PT Monitor I and O Hope for transfer to [facility] or Rehab this week. Problem List - Problems (1) Acute renal failure (ARF) Code(s): N17.9 - ACUTE KIDNEY FAILURE, UNSPECIFIED Qualifiers: Qualified Code(s): N17.9 - Acute kidney failure, unspecified; N17.9 - Acute kidney failure, unspecified; N17.9 - Acute kidney failure, unspecified (2) GI bleed Code(s): K92.2 - GASTROINTESTINAL HEMORRHAGE, UNSPECIFIED Qualifiers: Qualified Code(s): K92.2 - Gastrointestinal hemorrhage, unspecified; K92.2 - Gastrointestinal hemorrhage, unspecified (3) Cellulitis Code(s): L03.90 - CELLULITIS, UNSPECIFIED Qualifiers: Qualified Code(s): L03.114 - Cellulitis of left upper limb; L03.114 - Cellulitis of left upper limb (4) CAD (coronary artery disease) Code(s): I25.10 - ATHSCL HEART DISEASE OF [place] CORONARY ARTERY W/O ANG PCTRS Qualifiers: Qualified Code(s): I25.110 - Atherosclerotic heart disease of [place] coronary artery with unstable angina pectoris; I25.110 - Atherosclerotic heart disease of [place] coronary artery with unstable angina pectoris; I25.110 - Atherosclerotic heart disease of [place] coronary artery with unstable angina pectoris; I25.110 - Atherosclerotic heart disease of [place] coronary artery with unstable angina pectoris (5) Gout Code(s): M10.9 - GOUT, UNSPECIFIED (6) Hypertension Code(s): I10 - ESSENTIAL (PRIMARY) HYPERTENSION Qualifiers: Qualified Code(s): I10 - Essential (primary) hypertension; I10 - Essential (primary) hypertension; I10 - Essential (primary) hypertension (7) Anemia Code(s): D64.9 - ANEMIA, UNSPECIFIED Qualifiers: Qualified Code(s): D50.0 - Iron deficiency anemia secondary to blood loss (chronic); D50.0 - Iron deficiency anemia secondary to blood loss (chronic ) (8) Leukocytosis Code(s): D72.829 - ELEVATED WHITE BLOOD CELL COUNT, UNSPECIFIED (9) Respiratory arrest Code(s): R09.2 - RESPIRATORY ARREST
--- NOTE | 2017-04-05 11:44 | PN ---
Progress Note (short form) - Note Progress Note: Feels overall better. No acute events overnight. No CP or SOB. Intake & Output 04/02/17 04/03/17 04/04/17 04/05/17 23:59 23:59 23:59 23:59 Intake Total 410 470 220 Output Total 2560 3100 191 650 Balance -2150 -2630 -1695 -650 Weight 250 lb 4 oz 247 lb 8 oz 247 lb 3.2 oz 247 lb 2 oz Last Vital Signs Temp Pulse Resp BP Pulse Ox 98.7 F 76 18 123/57 97 04/05/17 10:00 04/05/17 11:10 04/05/17 10:00 04/05/17 10:00 04/05/17 11:10 Active Medications Allopurinol (Zyloprim -) 100 mg PO DAILY [facility] Last Admin: 04/05/17 09:23 Dose: 100 mg Carvedilol (Coreg -) 3.125 mg PO BID [facility] Last Admin: 04/05/17 09:23 Dose: 3.125 mg Cholecalciferol (Vitamin D3 -) 2,000 unit PO DAILY [facility] Last Admin: 04/05/17 09:23 Dose: 2,000 unit Heparin Sodium (Porcine) (Heparin -) 5,000 unit SQ BID [facility] Last Admin: 04/05/17 09:24 Dose: 5,000 unit IV Flush (Picc Line Flush) 8 ml IVPUSH PRN PRN PRN Reason: Protocol Insulin Aspart (Novolog Vial Sliding Scale -) 1 vial SQ TIDAC [facility]UL[facility] PRN Reason: Protocol Last Admin: 04/05/17 06:39 Dose: 2 units Lactulose (Cephulac (Oral Use)) 20 gm PO BID [facility] Last Admin: 04/05/17 09:23 Dose: 20 gm Ondansetron HCl (Zofran Injection) 4 mg IVPB Q8H PRN PRN Reason: NAUSEA Oxycodone HCl (Roxicodone -) 10 mg PO Q3H PRN PRN Reason: PAIN Last Admin: 04/05/17 06:27 Dose: 10 mg Pantoprazole Sodium (Protonix -) 40 mg PO DAILY [facility] Last Admin: 04/05/17 09:23 Dose: 40 mg Polyethylene Glycol (Miralax (For Daily Use) -) 17 gm PO DAILY [facility] Last Admin: 04/05/17 10:00 Dose: Not Given Zinc Acetate/Diphenhydramine (Benadryl 2% Cream) 1 applic TP BID [facility] Last Admin: 04/04/17 22:03 Dose: Not Given Exam: General: awake, alert, NAD HEENT: PERRL, no JVD CV: s1, s2 Pulm: diminished in bases Abd: obese Ext: Improving edema Neuro: grossly intact Laboratory Results - last 24 hr 04/04/17 04/04/17 04/05/17 11:56 16:58 06:26 WBC RBC Hgb Hct MCV MCH MCHC RDW Plt Count MPV Neutrophils % Lymphocytes % Monocytes % Eosinophils % Basophils % Sodium Potassium Chloride Carbon Dioxide Anion Gap BUN Creatinine POC Glucometer 180 177 161 Random Glucose Calcium 04/05/17 04/05/17 06:40 06:40 WBC 9.5 RBC 2.66 L Hgb 8.2 L Hct 23.8 L MCV 89.5 MCH 30.6 MCHC 34.2 RDW 17.6 H Plt Count 191 MPV 8.0 Neutrophils % 56.4 Lymphocytes % 15.4 Monocytes % 8.1 Eosinophils % 19.1 H Basophils % 1.0 Sodium 140 Potassium 3.7 Chloride 98 Carbon Dioxide 29 Anion Gap 13 BUN 52 H Creatinine 3.2 H POC Glucometer Random Glucose 147 H Calcium 8.7 Problem List - Problems (1) Cellulitis Code(s): L03.90 - CELLULITIS, UNSPECIFIED Qualifiers: Site of cellulitis: extremity Site of cellulitis of extremity: upper extremity Laterality: left Qualified Code(s): L03.114 - Cellulitis of left upper limb (2) Acute renal failure (ARF) Code(s): N17.9 - ACUTE KIDNEY FAILURE, UNSPECIFIED (3) CAD (coronary artery disease) Code(s): I25.10 - ATHSCL HEART DISEASE OF [place] CORONARY ARTERY W/O ANG PCTRS (4) Gout Code(s): M10.9 - GOUT, UNSPECIFIED (5) Hypertension Code(s): I10 - ESSENTIAL (PRIMARY) HYPERTENSION (6) Hyponatremia Code(s): E87.1 - HYPO-OSMOLALITY AND HYPONATREMIA IMP: CAD S/P CABG x2 Gout on allopurinol/colchicine HTN HLD DM II Fatty liver BPH MSSA bacteremia O2 as needed Monitor off HD per Renal I & O Daily weight Glycemic control VTE prophylaxis Ambulate D/C planning Dr Sandoval
[2017-04-05] MEDS ORDERED: INSULIN (NOVOLOG) ASPART 100 UNITS/ML 10ML VIAL ONE ×2 (12:00→19:04)
--- NOTE | 2017-04-05 12:00 | PN ---
Progress Note, Physician Chief Complaint: ID progress note History of Present Illness: Pt states he feels generally well. No specific complaints. - Current Medication List Current Medications: Active Medications Allopurinol (Zyloprim -) 100 mg PO DAILY [facility] Last Admin: 04/05/17 09:23 Dose: 100 mg Carvedilol (Coreg -) 3.125 mg PO BID [facility] Last Admin: 04/05/17 09:23 Dose: 3.125 mg Cholecalciferol (Vitamin D3 -) 2,000 unit PO DAILY [facility] Last Admin: 04/05/17 09:23 Dose: 2,000 unit Heparin Sodium (Porcine) (Heparin -) 5,000 unit SQ BID [facility] Last Admin: 04/05/17 09:24 Dose: 5,000 unit IV Flush (Picc Line Flush) 8 ml IVPUSH PRN PRN PRN Reason: Protocol Insulin Aspart (Novolog Vial Sliding Scale -) 1 vial SQ TIDAC PAULINA PRN Reason: Protocol Last Admin: 04/05/17 06:39 Dose: 2 units Lactulose (Cephulac (Oral Use)) 20 gm PO BID [facility] Last Admin: 04/05/17 09:23 Dose: 20 gm Ondansetron HCl (Zofran Injection) 4 mg IVPB Q8H PRN PRN Reason: NAUSEA Oxycodone HCl (Roxicodone -) 10 mg PO Q3H PRN PRN Reason: PAIN Last Admin: 04/05/17 06:27 Dose: 10 mg Pantoprazole Sodium (Protonix -) 40 mg PO DAILY [facility] Last Admin: 04/05/17 09:23 Dose: 40 mg Polyethylene Glycol (Miralax (For Daily Use) -) 17 gm PO DAILY [facility] Last Admin: 04/05/17 10:00 Dose: Not Given Zinc Acetate/Diphenhydramine (Benadryl 2% Cream) 1 applic TP BID [facility] Last Admin: 04/04/17 22:03 Dose: Not Given - Objective Vital Signs: Vital Signs Temperature 98.7 F 04/05/17 10:00 Pulse Rate 76 04/05/17 11:10 Respiratory Rate 18 04/05/17 10:00 Blood Pressure 123/57 04/05/17 10:00 O2 Sat by Pulse Oximetry (%) 97 04/05/17 11:10 Constitutional: Yes: No Distress Eyes: Yes: WNL HENT: Yes: WNL Neck: Yes: Supple Cardiovascular: Yes: Regular Rate and Rhythm Respiratory: Yes: Regular Gastrointestinal: Yes: Normal Bowel Sounds, Soft Genitourinary: Yes: Other (good urine output) Musculoskeletal: Yes: Joint Swelling (Lt wrist with decreased edema/erythema. Still with some tenderness.) Integumentary: Yes: Other (resolving erythematous rash) Neurological: Yes: Alert, Oriented Psychiatric: Yes: Alert Labs: CBC, BMP 04/05/17 06:40 04/05/17 06:40 INR, PTT INR 1.55 (0.82-1.09) H 03/26/17 09:04 Problem List - Problems (1) Cellulitis Code(s): L03.90 - CELLULITIS, UNSPECIFIED Qualifiers: Qualified Code(s): L03.114 - Cellulitis of left upper limb; L03.114 - Cellulitis of left upper limb (2) Leukocytosis Code(s): D72.829 - ELEVATED WHITE BLOOD CELL COUNT, UNSPECIFIED (3) Septic arthritis Code(s): M00.9 - PYOGENIC ARTHRITIS, UNSPECIFIED (4) MSSA (methicillin susceptible Staphylococcus aureus) infection Code(s): A49.01 - METHICILLIN SUSCEP STAPH INFECTION, UNSP SITE Assessment/Plan Lt wrist septic arthritis - improved Sepsis/ MSSA bacteremia Leukocytosis- resolved anemia s/p transfusion ARF - now off HD [place] - patient stable, improving - s/p course of antibiotics continue monitor
--- NOTE | 2017-04-05 19:16 | PN ---
Progress Note, Physician Chief Complaint: Not in distress History of Present Illness: Patient was seen and examined. Awake and alert. Chart was reviewed Denies chest pain, shortness of breath or palpitations Tolerating therapy - Current Medication List Current Medications: Active Medications Allopurinol (Zyloprim -) 100 mg PO DAILY [facility] Last Admin: 04/05/17 09:23 Dose: 100 mg Carvedilol (Coreg -) 3.125 mg PO BID [facility] Last Admin: 04/05/17 09:23 Dose: 3.125 mg Cholecalciferol (Vitamin D3 -) 2,000 unit PO DAILY [facility] Last Admin: 04/05/17 09:23 Dose: 2,000 unit Heparin Sodium (Porcine) (Heparin -) 5,000 unit SQ BID [facility] Last Admin: 04/05/17 09:24 Dose: 5,000 unit IV Flush (Picc Line Flush) 8 ml IVPUSH PRN PRN PRN Reason: Protocol Insulin Aspart (Novolog Vial Sliding Scale -) 1 vial SQ TIDAC [facility]UL[facility] PRN Reason: Protocol Last Admin: 04/05/17 17:36 Dose: 4 units Lactulose (Cephulac (Oral Use)) 20 gm PO BID [facility] Last Admin: 04/05/17 09:23 Dose: 20 gm Ondansetron HCl (Zofran Injection) 4 mg IVPB Q8H PRN PRN Reason: NAUSEA Oxycodone HCl (Roxicodone -) 10 mg PO Q3H PRN PRN Reason: PAIN Last Admin: 04/05/17 18:33 Dose: 10 mg Pantoprazole Sodium (Protonix -) 40 mg PO DAILY [facility] Last Admin: 04/05/17 09:23 Dose: 40 mg Polyethylene Glycol (Miralax (For Daily Use) -) 17 gm PO DAILY [facility] Last Admin: 04/05/17 10:00 Dose: Not Given Zinc Acetate/Diphenhydramine (Benadryl 2% Cream) 1 applic TP BID [facility] Last Admin: 04/05/17 10:00 Dose: Not Given - Objective Vital Signs: Vital Signs Temperature 98 F 04/05/17 18:43 Pulse Rate 78 04/05/17 18:43 Respiratory Rate 20 04/05/17 18:43 Blood Pressure 132/59 04/05/17 18:43 O2 Sat by Pulse Oximetry (%) 97 04/05/17 11:10 Neck: Yes: Supple Cardiovascular: Yes: Regular Rate and Rhythm, S1, S2 Respiratory: Yes: CTA Bilaterally Gastrointestinal: Yes: Normal Bowel Sounds, Soft. No: Tenderness Edema: Yes Edema: LLE: 1+, RLE: 1+ Additional Findings/Remarks: - Review of Systems Constitutional: no symptoms reported Respiratory: denies: Cough denies: Sputum Production Cardiovascular: denies: chest pain, SOB, palpitations Gastrointestinal: denies Nausea, Vomiting, Diarrhea, Constipation or Abdominal Pain Genitourinary: No symptoms reported Musculoskeletal: No symptoms reported Endocrine: No symptoms reported Labs: CBC, BMP 04/05/17 06:40 04/05/17 06:40 Problem List - Problems (1) Abnormal liver enzymes Code(s): R74.8 - ABNORMAL LEVELS OF OTHER SERUM ENZYMES (2) Acute renal failure (ARF) Code(s): N17.9 - ACUTE KIDNEY FAILURE, UNSPECIFIED Qualifiers: Qualified Code(s): N17.9 - Acute kidney failure, unspecified; N17.9 - Acute kidney failure, unspecified; N17.9 - Acute kidney failure, unspecified (3) Anemia Code(s): D64.9 - ANEMIA, UNSPECIFIED Qualifiers: Qualified Code(s): D50.0 - Iron deficiency anemia secondary to blood loss (chronic); D50.0 - Iron deficiency anemia secondary to blood loss (chronic ) (4) CAD (coronary artery disease) Code(s): I25.10 - ATHSCL HEART DISEASE OF [place] CORONARY ARTERY W/O ANG PCTRS Qualifiers: Qualified Code(s): I25.110 - Atherosclerotic heart disease of [place] coronary artery with unstable angina pectoris; I25.110 - Atherosclerotic heart disease of [place] coronary artery with unstable angina pectoris; I25.110 - Atherosclerotic heart disease of [place] coronary artery with unstable angina pectoris; I25.110 - Atherosclerotic heart disease of [place] coronary artery with unstable angina pectoris (5) Cellulitis Code(s): L03.90 - CELLULITIS, UNSPECIFIED Qualifiers: Qualified Code(s): L03.114 - Cellulitis of left upper limb; L03.114 - Cellulitis of left upper limb (6) Hyperlipidemia Code(s): E78.5 - HYPERLIPIDEMIA, UNSPECIFIED Qualifiers: Qualified Code(s): E78.00 - Pure hypercholesterolemia, unspecified; E78.00 - Pure hypercholesterolemia, unspecified; E78.00 - Pure hypercholesterolemia, unspecified; E78.0 - Pure hypercholesterolemia (7) Hypertension Code(s): I10 - ESSENTIAL (PRIMARY) HYPERTENSION Qualifiers: Qualified Code(s): I10 - Essential (primary) hypertension; I10 - Essential (primary) hypertension; I10 - Essential (primary) hypertension (8) MSSA (methicillin susceptible Staphylococcus aureus) infection Code(s): A49.01 - METHICILLIN SUSCEP STAPH INFECTION, UNSP SITE (9) Respiratory arrest before cardiac arrest Code(s): I46.9 - CARDIAC ARREST, CAUSE UNSPECIFIED R09.2 - RESPIRATORY ARREST (10) Hx of CABG Code(s): Z95.1 - PRESENCE OF AORTOCORONARY BYPASS GRAFT Assessment/Plan 1. Cardiopulmonary arrest with PEA (Pulseless Electrical Activity) post resuscitation and post respiratory failure 2. Abnormal EKG, unclear underlying atrial rhythm now resolved most likely related profound metabolic/lactic acidosis - resolved 3. CAD post PA/CABG angina pectoris with evidence of demand ischemic injury in context of acute pulmonary edema - resolved 4. Moderate LV systolic dysfunction with acute class III-IV NYHA classification LV failure - improved 5. Acute renal failure now off HD 6. Anemia, history of GI bleed related to peptic ulcer disease, post transfusion 7. History of HTN 8. DM 9. Hypercholesterolemia 10. Cellulitis with recent MSSA sepsis syndrome with septic shock and now with left psoas collection s/p drainage 11. Abnormal LFTs PLAN: 1. Continue Heparin SQ 2. Off Demadex. Continue to monitor renal function and electrolytes 3. Continue Coreg with uptitration as tolerated. 4. Restart Statin once LFT recovers 5. Transfusion PRN to maintain Hgb equal or > 8.0 5. PT and eventual rehab - await possible [facility] Follow up in office once discharged from rehab Jonnathan Nogueira MD
[2017-04-06] MEDS: oxyCODONE HCL 5 MG TABLET PO PRN ×3 (02:20→17:36)
[2017-04-06] MEDS: INSULIN SLIDING SCALE (NOVOLOG) 1 VIAL SQ SCH ×3 (06:39→17:01)
[2017-04-06 07:16] LABS: BASOPHIL 1.2 % (0-2.0); EOSINOPHIL 23.9 % (0-4.5); MCH 30.3 pg (25.7-33.7); MCHC 33.5 g/dl (32.0-35.9); MEAN CELL VOLUME 90.4 fl (80-96); MEAN PLT VOLUME 8.2 fl (7.5-11.1); NEUTROPHILS 48.2 % (42.8-82.8); PLATELET COUNT 184 K/MM3 (134-434); RDW 17.2 % (11.9-15.9); WHITE BLOOD COUNT 8.7 K/mm3 (4.0-10.0)
[2017-04-06 07:38] LABS: ANION GAP 10 (8-16); BILIRUBIN,DIRECT 1.5 mg/dL (0.0-0.2); BILIRUBIN,TOTAL 2.6 mg/dL (0.2-1.0); CALCIUM 8.8 mg/dL (8.5-10.1); CO2 29 mmol/L (21-32); CREATININE 3.3 mg/dL (0.7-1.3); GLUCOSE,RANDOM 124 mg/dL (74-106); MAGNESIUM 1.9 mg/dL (1.8-2.4); PHOSPHOROUS 4.9 mg/dL (2.5-4.9)
--- NOTE | 2017-04-06 09:53 | PN ---
Progress Note, Physician Chief Complaint: Tired. History of Present Illness: Patient seems to have slowed progress with his Creatinine and Hb. Looks tired but says he feels well. Sleeps well at nite and has excellent urine output but body edema below the waist continues at 3+. Maybe we should consider repeat Echo to revaluate EF. - Current Medication List Current Medications: Active Medications Allopurinol (Zyloprim -) 100 mg PO DAILY [facility] Last Admin: 04/05/17 09:23 Dose: 100 mg Carvedilol (Coreg -) 3.125 mg PO BID [facility] Last Admin: 04/05/17 22:01 Dose: 3.125 mg Cholecalciferol (Vitamin D3 -) 2,000 unit PO DAILY [facility] Last Admin: 04/05/17 09:23 Dose: 2,000 unit Heparin Sodium (Porcine) (Heparin -) 5,000 unit SQ BID [facility] Last Admin: 04/05/17 22:01 Dose: 5,000 unit IV Flush (Picc Line Flush) 8 ml IVPUSH PRN PRN PRN Reason: Protocol Insulin Aspart (Novolog Vial Sliding Scale -) 1 vial SQ TIDAC PAULINA PRN Reason: Protocol Last Admin: 04/06/17 06:39 Dose: Not Given Lactulose (Cephulac (Oral Use)) 20 gm PO BID [facility] Last Admin: 04/05/17 22:01 Dose: Not Given Ondansetron HCl (Zofran Injection) 4 mg IVPB Q8H PRN PRN Reason: NAUSEA Oxycodone HCl (Roxicodone -) 10 mg PO Q3H PRN PRN Reason: PAIN Last Admin: 04/06/17 02:20 Dose: 10 mg Pantoprazole Sodium (Protonix -) 40 mg PO DAILY [facility] Last Admin: 04/05/17 09:23 Dose: 40 mg Polyethylene Glycol (Miralax (For Daily Use) -) 17 gm PO DAILY [facility] Last Admin: 04/05/17 10:00 Dose: Not Given Zinc Acetate/Diphenhydramine (Benadryl 2% Cream) 1 applic TP BID [facility] Last Admin: 04/05/17 22:01 Dose: Not Given - Objective Vital Signs: Vital Signs Temperature 98.7 F 04/06/17 06:55 Pulse Rate 82 04/06/17 06:55 Respiratory Rate 18 04/06/17 06:55 Blood Pressure 120/86 04/06/17 06:55 O2 Sat by Pulse Oximetry (%) 97 04/05/17 20:59 Constitutional: Yes: Calm, Pallor Eyes: Yes: Sclera Icterus (slight) Cardiovascular: Yes: Regular Rate and Rhythm Respiratory: Yes: Diminished, Rales (few at bases) Gastrointestinal: Yes: Soft, Distention. No: Tenderness Genitourinary: No: Taylor Present Edema: LLE: 3+, RLE: 2+ Neurological: Yes: Alert, Oriented Labs: CBC, BMP 04/06/17 06:25 04/06/17 06:25 INR, PTT INR 1.55 (0.82-1.09) H 03/26/17 09:04 Problem List - Problems (1) Acute renal failure (ARF) Assessment/Plan: Creatinine 3.3 today with BUN over 50. Excellent urine output. Code(s): N17.9 - ACUTE KIDNEY FAILURE, UNSPECIFIED Qualifiers: Qualified Code(s): N17.9 - Acute kidney failure, unspecified; N17.9 - Acute kidney failure, unspecified; N17.9 - Acute kidney failure, unspecified (2) GI bleed Assessment/Plan: Hb slightly lower at 8GM. To follow. Code(s): K92.2 - GASTROINTESTINAL HEMORRHAGE, UNSPECIFIED Qualifiers: Qualified Code(s): K92.2 - Gastrointestinal hemorrhage, unspecified; K92.2 - Gastrointestinal hemorrhage, unspecified (3) Cellulitis Code(s): L03.90 - CELLULITIS, UNSPECIFIED Qualifiers: Qualified Code(s): L03.114 - Cellulitis of left upper limb; L03.114 - Cellulitis of left upper limb (4) CAD (coronary artery disease) Assessment/Plan: CABG X2;lower EF after respiratory arrest. ??repeat study Code(s): I25.10 - ATHSCL HEART DISEASE OF [place] CORONARY ARTERY W/O ANG PCTRS Qualifiers: Qualified Code(s): I25.110 - Atherosclerotic heart disease of [place] coronary artery with unstable angina pectoris; I25.110 - Atherosclerotic heart disease of [place] coronary artery with unstable angina pectoris; I25.110 - Atherosclerotic heart disease of [place] coronary artery with unstable angina pectoris; I25.110 - Atherosclerotic heart disease of [place] coronary artery with unstable angina pectoris (5) Gout Code(s): M10.9 - GOUT, UNSPECIFIED (6) Hypertension Assessment/Plan: Stable BP Code(s): I10 - ESSENTIAL (PRIMARY) HYPERTENSION Qualifiers: Qualified Code(s): I10 - Essential (primary) hypertension; I10 - Essential (primary) hypertension; I10 - Essential (primary) hypertension (7) Anemia Assessment/Plan: HB 8GM. Last 2 stool guiac negative. Code(s): D64.9 - ANEMIA, UNSPECIFIED Qualifiers: Qualified Code(s): D50.0 - Iron deficiency anemia secondary to blood loss (chronic); D50.0 - Iron deficiency anemia secondary to blood loss (chronic ) (8) Leukocytosis Code(s): D72.829 - ELEVATED WHITE BLOOD CELL COUNT, UNSPECIFIED (9) Respiratory arrest Code(s): R09.2 - RESPIRATORY ARREST
[2017-04-06] MEDS: HEPARIN NA (PORCINE) 5,000 UNITS/ML 1ML VIAL SQ SCH ×2 (09:59→22:20)
[2017-04-06] MEDS: CARVEDILOL 3.125 MG TABLET (FP) PO SCH ×2 (09:59→22:19)
[2017-04-06] MEDS: LACTULOSE 20 GM/30 ML UDC (FOR ORAL USE ONLY) PO SCH ×2 (09:59→22:19)
[2017-04-06] MEDS: CHOLECALCIFEROL (VITAMIN D3) 1,000 UNIT TABLET (FP) PO SCH (10:00)
[2017-04-06] MEDS: POLYETHYLENE GLYCOL 3350 119 GM BTL PO SCH (10:00)
[2017-04-06] MEDS: PANTOPRAZOLE 40 MG TABLET (FP) PO SCH (10:00)
[2017-04-06] MEDS: ALLOPURINOL 100 MG TABLET (FP) PO SCH (10:01)
--- NOTE | 2017-04-06 10:23 | PN ---
Progress Note, Physician Chief Complaint: Not in distress while sitting and clinically improved significantly. Pedal edema has improved, but still some volume Dyspnea improving with ambulation. Denies chest pain Currently has good urine output History of Present Illness: Patient was seen and examined. Awake and alert. Chart was reviewed Denies chest pain or palpitations. Dyspnea with ambulation Tolerating therapy - Current Medication List Current Medications: Active Medications Allopurinol (Zyloprim -) 100 mg PO DAILY [facility] Last Admin: 04/06/17 10:01 Dose: 100 mg Carvedilol (Coreg -) 3.125 mg PO BID [facility] Last Admin: 04/06/17 09:59 Dose: 3.125 mg Cholecalciferol (Vitamin D3 -) 2,000 unit PO DAILY [facility] Last Admin: 04/06/17 10:00 Dose: 2,000 unit Heparin Sodium (Porcine) (Heparin -) 5,000 unit SQ BID [facility] Last Admin: 04/06/17 09:59 Dose: 5,000 unit IV Flush (Picc Line Flush) 8 ml IVPUSH PRN PRN PRN Reason: Protocol Insulin Aspart (Novolog Vial Sliding Scale -) 1 vial SQ TIDAC PAULINA PRN Reason: Protocol Last Admin: 04/06/17 06:39 Dose: Not Given Lactulose (Cephulac (Oral Use)) 20 gm PO BID [facility] Last Admin: 04/06/17 09:59 Dose: 20 gm Ondansetron HCl (Zofran Injection) 4 mg IVPB Q8H PRN PRN Reason: NAUSEA Pantoprazole Sodium (Protonix -) 40 mg PO DAILY [facility] Last Admin: 04/06/17 10:00 Dose: 40 mg Polyethylene Glycol (Miralax (For Daily Use) -) 17 gm PO DAILY [facility] Last Admin: 04/06/17 10:00 Dose: Not Given Zinc Acetate/Diphenhydramine (Benadryl 2% Cream) 1 applic TP BID [facility] Last Admin: 04/06/17 10:06 Dose: Not Given - Objective Vital Signs: Vital Signs Temperature 98.7 F 04/06/17 06:55 Pulse Rate 82 04/06/17 06:55 Respiratory Rate 18 04/06/17 06:55 Blood Pressure 120/86 04/06/17 06:55 O2 Sat by Pulse Oximetry (%) 97 04/05/17 20:59 Neck: Yes: Supple Cardiovascular: Yes: Regular Rate and Rhythm, S1, S2 Respiratory: Yes: Diminished Gastrointestinal: Yes: Normal Bowel Sounds, Soft. No: Tenderness Edema: Yes Edema: LLE: 1+, RLE: 1+ Additional Findings/Remarks: - Review of Systems Constitutional: no symptoms reported Respiratory: denies: Cough denies: Sputum Production Cardiovascular: denies: chest pain, SOB, palpitations Gastrointestinal: denies Nausea, Vomiting, Diarrhea, Constipation or Abdominal Pain Genitourinary: No symptoms reported Musculoskeletal: No symptoms reported Endocrine: No symptoms reported Labs: CBC, BMP 04/06/17 06:25 04/06/17 06:25 Problem List - Problems (1) Abnormal liver enzymes Code(s): R74.8 - ABNORMAL LEVELS OF OTHER SERUM ENZYMES (2) Acute renal failure (ARF) Code(s): N17.9 - ACUTE KIDNEY FAILURE, UNSPECIFIED Qualifiers: Qualified Code(s): N17.9 - Acute kidney failure, unspecified; N17.9 - Acute kidney failure, unspecified; N17.9 - Acute kidney failure, unspecified (3) Anemia Code(s): D64.9 - ANEMIA, UNSPECIFIED Qualifiers: Qualified Code(s): D50.0 - Iron deficiency anemia secondary to blood loss (chronic); D50.0 - Iron deficiency anemia secondary to blood loss (chronic ) (4) CAD (coronary artery disease) Code(s): I25.10 - ATHSCL HEART DISEASE OF [place] CORONARY ARTERY W/O ANG PCTRS Qualifiers: Qualified Code(s): I25.110 - Atherosclerotic heart disease of [place] coronary artery with unstable angina pectoris; I25.110 - Atherosclerotic heart disease of [place] coronary artery with unstable angina pectoris; I25.110 - Atherosclerotic heart disease of [place] coronary artery with unstable angina pectoris; I25.110 - Atherosclerotic heart disease of [place] coronary artery with unstable angina pectoris (5) Cellulitis Code(s): L03.90 - CELLULITIS, UNSPECIFIED Qualifiers: Qualified Code(s): L03.114 - Cellulitis of left upper limb; L03.114 - Cellulitis of left upper limb (6) Hyperlipidemia Code(s): E78.5 - HYPERLIPIDEMIA, UNSPECIFIED Qualifiers: Qualified Code(s): E78.00 - Pure hypercholesterolemia, unspecified; E78.00 - Pure hypercholesterolemia, unspecified; E78.00 - Pure hypercholesterolemia, unspecified; E78.0 - Pure hypercholesterolemia (7) Hypertension Code(s): I10 - ESSENTIAL (PRIMARY) HYPERTENSION Qualifiers: Qualified Code(s): I10 - Essential (primary) hypertension; I10 - Essential (primary) hypertension; I10 - Essential (primary) hypertension (8) MSSA (methicillin susceptible Staphylococcus aureus) infection Code(s): A49.01 - METHICILLIN SUSCEP STAPH INFECTION, UNSP SITE (9) Respiratory arrest before cardiac arrest Code(s): I46.9 - CARDIAC ARREST, CAUSE UNSPECIFIED R09.2 - RESPIRATORY ARREST (10) Hx of CABG Code(s): Z95.1 - PRESENCE OF AORTOCORONARY BYPASS GRAFT Assessment/Plan 1. Cardiopulmonary arrest with PEA (Pulseless Electrical Activity) post resuscitation and post respiratory failure 2. Abnormal EKG, unclear underlying atrial rhythm now resolved most likely related profound metabolic/lactic acidosis - resolved 3. CAD post CO/CABG angina pectoris with evidence of demand ischemic injury in context of acute pulmonary edema - resolved 4. Moderate LV systolic dysfunction with acute class III-IV NYHA classification LV failure - improved 5. Acute renal failure now off HD 6. Anemia, history of GI bleed related to peptic ulcer disease, post transfusion 7. History of HTN 8. DM 9. Hypercholesterolemia 10. Cellulitis with recent MSSA sepsis syndrome with septic shock and now with left psoas collection s/p drainage 11. Abnormal LFTs PLAN: 1. Continue Heparin SQ 2. Diuretics as needed. Continue to monitor renal function and electrolytes. Monitor volume status. Transthoracic echocardiography is to be repeated to re- assess LV systolic function before deciding SNF/rehab placement at [facility] 3. Continue Coreg with uptitration as tolerated. 4. Restart Statin once LFT recovers 5. Transfusion PRN to maintain Hgb equal or > 8.0 5. PT and eventual rehab - await possible [facility] rehab, but will further optimize clinical condition before transfer 6. Renal follow up Follow up in office once discharged from rehab Jonnathan Nogueira MD
--- NOTE | 2017-04-06 11:40 | PN ---
Progress Note (short form) - Note Progress Note: Renal Follow up for JOE Pt seen and examined at the bedside feels well good urine output no sob, chest pain, abd pain Vital Signs Temperature 97.7 F 04/06/17 10:00 Pulse Rate 72 04/06/17 10:00 Respiratory Rate 18 04/06/17 10:00 Blood Pressure 144/66 04/06/17 10:00 O2 Sat by Pulse Oximetry (%) 97 04/06/17 11:05 Intake & Output 04/03/17 04/04/17 04/05/17 04/06/17 23:59 23:59 23:59 23:59 Intake Total 470 220 750 Output Total 3100 1915 2690 1350 Balance -2630 -1695 -1940 -1350 Weight 247 lb 8 oz 247 lb 3.2 oz 247 lb 2 oz 244 lb 2 oz Gen: NAD CVS: RRR Lungs: CTA Abd: soft NT/ND Ext: 2+ edema in LE CBC, BMP 04/06/17 06:25 04/06/17 06:25 Laboratory Tests 04/06/17 04/06/17 06:25 06:25 Calcium 8.8 Phosphorus 4.9 Magnesium 1.9 Total Bilirubin 2.6 H Direct Bilirubin 1.5 H D Current Medications Allopurinol (Zyloprim -) 100 mg PO DAILY [facility] Last Admin: 04/06/17 10:01 Dose: 100 mg Carvedilol (Coreg -) 3.125 mg PO BID [facility] Last Admin: 04/06/17 09:59 Dose: 3.125 mg Cholecalciferol (Vitamin D3 -) 2,000 unit PO DAILY [facility] Last Admin: 04/06/17 10:00 Dose: 2,000 unit Heparin Sodium (Porcine) (Heparin -) 5,000 unit SQ BID [facility] Last Admin: 04/06/17 09:59 Dose: 5,000 unit IV Flush (Picc Line Flush) 8 ml IVPUSH PRN PRN PRN Reason: Protocol Insulin Aspart (Novolog Vial Sliding Scale -) 1 vial SQ TIDAC PAULINA PRN Reason: Protocol Last Admin: 04/06/17 06:39 Dose: Not Given Lactulose (Cephulac (Oral Use)) 20 gm PO BID [facility] Last Admin: 04/06/17 09:59 Dose: 20 gm Ondansetron HCl (Zofran Injection) 4 mg IVPB Q8H PRN PRN Reason: NAUSEA Pantoprazole Sodium (Protonix -) 40 mg PO DAILY [facility] Last Admin: 04/06/17 10:00 Dose: 40 mg Polyethylene Glycol (Miralax (For Daily Use) -) 17 gm PO DAILY [facility] Last Admin: 04/06/17 10:00 Dose: Not Given Zinc Acetate/Diphenhydramine (Benadryl 2% Cream) 1 applic TP BID [facility] Last Admin: 04/06/17 10:06 Dose: Not Given A/P 71 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 #Renal Failure with volume overload secondary to ATN Renal function slowly improving pt still hypervolemic at the present time continue restriction trend daily weights, urine output not on diuretics at this time Trend BUN/Cr no NSAIDs, [place]/ARB stable for discharge with outpatient follow up Aubrey Acharya DO Problem List - Problems (1) Cellulitis Code(s): L03.90 - CELLULITIS, UNSPECIFIED Qualifiers: Qualified Code(s): L03.114 - Cellulitis of left upper limb; L03.114 - Cellulitis of left upper limb (2) Acute renal failure (ARF) Code(s): N17.9 - ACUTE KIDNEY FAILURE, UNSPECIFIED Qualifiers: Qualified Code(s): N17.9 - Acute kidney failure, unspecified; N17.9 - Acute kidney failure, unspecified; N17.9 - Acute kidney failure, unspecified (3) CAD (coronary artery disease) Code(s): I25.10 - ATHSCL HEART DISEASE OF [place] CORONARY ARTERY W/O ANG PCTRS Qualifiers: Qualified Code(s): I25.110 - Atherosclerotic heart disease of [place] coronary artery with unstable angina pectoris; I25.110 - Atherosclerotic heart disease of [place] coronary artery with unstable angina pectoris; I25.110 - Atherosclerotic heart disease of [place] coronary artery with unstable angina pectoris; I25.110 - Atherosclerotic heart disease of [place] coronary artery with unstable angina pectoris (4) Hypertension Code(s): I10 - ESSENTIAL (PRIMARY) HYPERTENSION Qualifiers: Qualified Code(s): I10 - Essential (primary) hypertension; I10 - Essential (primary) hypertension; I10 - Essential (primary) hypertension (5) Gout Code(s): M10.9 - GOUT, UNSPECIFIED (6) Leukocytosis Code(s): D72.829 - ELEVATED WHITE BLOOD CELL COUNT, UNSPECIFIED
--- NOTE | 2017-04-06 14:12 | PN ---
Progress Note, Physician History of Present Illness: doing well no issues had an echo done - Current Medication List Current Medications: Active Medications Allopurinol (Zyloprim -) 100 mg PO DAILY [facility] Last Admin: 04/06/17 10:01 Dose: 100 mg Carvedilol (Coreg -) 3.125 mg PO BID [facility] Last Admin: 04/06/17 09:59 Dose: 3.125 mg Cholecalciferol (Vitamin D3 -) 2,000 unit PO DAILY [facility] Last Admin: 04/06/17 10:00 Dose: 2,000 unit Heparin Sodium (Porcine) (Heparin -) 5,000 unit SQ BID [facility] Last Admin: 04/06/17 09:59 Dose: 5,000 unit IV Flush (Picc Line Flush) 8 ml IVPUSH PRN PRN PRN Reason: Protocol Insulin Aspart (Novolog Vial Sliding Scale -) 1 vial SQ TIDAC PAULINA PRN Reason: Protocol Last Admin: 04/06/17 11:41 Dose: 4 units Lactulose (Cephulac (Oral Use)) 20 gm PO BID [facility] Last Admin: 04/06/17 09:59 Dose: 20 gm Ondansetron HCl (Zofran Injection) 4 mg IVPB Q8H PRN PRN Reason: NAUSEA Pantoprazole Sodium (Protonix -) 40 mg PO DAILY [facility] Last Admin: 04/06/17 10:00 Dose: 40 mg Polyethylene Glycol (Miralax (For Daily Use) -) 17 gm PO DAILY [facility] Last Admin: 04/06/17 10:00 Dose: Not Given Zinc Acetate/Diphenhydramine (Benadryl 2% Cream) 1 applic TP BID [facility] Last Admin: 04/06/17 10:06 Dose: Not Given - Objective Vital Signs: Vital Signs Temperature 97.7 F 04/06/17 10:00 Pulse Rate 72 04/06/17 10:00 Respiratory Rate 18 04/06/17 10:00 Blood Pressure 144/66 04/06/17 10:00 O2 Sat by Pulse Oximetry (%) 97 04/06/17 11:05 Constitutional: Yes: No Distress, Calm Cardiovascular: Yes: Regular Rate and Rhythm Respiratory: Yes: Regular, CTA Bilaterally Gastrointestinal: Yes: Normal Bowel Sounds, Soft Musculoskeletal: Yes: WNL Extremities: Yes: Other (left wrist still swollen) Neurological: Yes: Alert, Oriented Psychiatric: Yes: Alert, Oriented Labs: CBC, BMP 04/06/17 06:25 04/06/17 06:25 INR, PTT INR 1.55 (0.82-1.09) H 03/26/17 09:04 Assessment/Plan Problem List - Problems (1) Acute renal failure (ARF) Code(s): N17.9 - ACUTE KIDNEY FAILURE, UNSPECIFIED Qualifiers: Qualified Code(s): N17.9 - Acute kidney failure, unspecified; N17.9 - Acute kidney failure, unspecified; N17.9 - Acute kidney failure, unspecified (2) GI bleed Code(s): K92.2 - GASTROINTESTINAL HEMORRHAGE, UNSPECIFIED Qualifiers: Qualified Code(s): K92.2 - Gastrointestinal hemorrhage, unspecified; K92.2 - Gastrointestinal hemorrhage, unspecified (3) Cellulitis Code(s): L03.90 - CELLULITIS, UNSPECIFIED Qualifiers: Qualified Code(s): L03.114 - Cellulitis of left upper limb; L03.114 - Cellulitis of left upper limb (4) CAD (coronary artery disease) Code(s): I25.10 - ATHSCL HEART DISEASE OF [place] CORONARY ARTERY W/O ANG PCTRS Qualifiers: Qualified Code(s): I25.110 - Atherosclerotic heart disease of [place] coronary artery with unstable angina pectoris; I25.110 - Atherosclerotic heart disease of [place] coronary artery with unstable angina pectoris; I25.110 - Atherosclerotic heart disease of [place] coronary artery with unstable angina pectoris; I25.110 - Atherosclerotic heart disease of [place] coronary artery with unstable angina pectoris (5) Gout Code(s): M10.9 - GOUT, UNSPECIFIED (6) Hypertension Code(s): I10 - ESSENTIAL (PRIMARY) HYPERTENSION Qualifiers: Qualified Code(s): I10 - Essential (primary) hypertension; I10 - Essential (primary) hypertension; I10 - Essential (primary) hypertension (7) Anemia Code(s): D64.9 - ANEMIA, UNSPECIFIED Qualifiers: Qualified Code(s): D50.0 - Iron deficiency anemia secondary to blood loss (chronic); D50.0 - Iron deficiency anemia secondary to blood loss (chronic ) (8) Leukocytosis Code(s): D72.829 - ELEVATED WHITE BLOOD CELL COUNT, UNSPECIFIED (9) Respiratory arrest Code(s): R09.2 - RESPIRATORY ARREST mssa bacteremia sepsis plan continue to monitor physio rest as per primary team
[2017-04-06] MEDS ORDERED: INSULIN (NOVOLOG) ASPART 100 UNITS/ML 10ML VIAL ONE (17:34)
[2017-04-07] MEDS: oxyCODONE HCL 5 MG TABLET PO PRN ×3 (02:08→21:06)
[2017-04-07] MEDS: INSULIN SLIDING SCALE (NOVOLOG) 1 VIAL SQ SCH ×3 (07:04→17:52)
[2017-04-07 07:41] LABS: BASOPHIL 1.1 % (0-2.0); EOSINOPHIL 23.3 % (0-4.5); MEAN CELL VOLUME 91.3 fl (80-96); MEAN PLT VOLUME 8.3 fl (7.5-11.1); NEUTROPHILS 48.6 % (42.8-82.8); PLATELET COUNT 202 K/MM3 (134-434); RDW 17.5 % (11.9-15.9)
[2017-04-07 08:57] LABS: ANION GAP 8 (8-16); CALCIUM 8.6 mg/dL (8.5-10.1); CO2 30 mmol/L (21-32); GLUCOSE,RANDOM 133 mg/dL (74-106); MAGNESIUM 1.7 mg/dL (1.8-2.4)
[2017-04-07 09:00] LABS: CREATININE 3.1 mg/dL (0.7-1.3)
--- NOTE | 2017-04-07 10:04 | PN ---
Progress Note, Physician History of Present Illness: doing well no issues - Current Medication List Current Medications: Active Medications Allopurinol (Zyloprim -) 100 mg PO DAILY [facility] Last Admin: 04/06/17 10:01 Dose: 100 mg Carvedilol (Coreg -) 3.125 mg PO BID [facility] Last Admin: 04/06/17 22:19 Dose: 3.125 mg Cholecalciferol (Vitamin D3 -) 2,000 unit PO DAILY [facility] Last Admin: 04/06/17 10:00 Dose: 2,000 unit Heparin Sodium (Porcine) (Heparin -) 5,000 unit SQ BID [facility] Last Admin: 04/06/17 22:20 Dose: 5,000 unit IV Flush (Picc Line Flush) 8 ml IVPUSH PRN PRN PRN Reason: Protocol Insulin Aspart (Novolog Vial Sliding Scale -) 1 vial SQ TIDAC PAULINA PRN Reason: Protocol Last Admin: 04/07/17 07:04 Dose: Not Given Lactulose (Cephulac (Oral Use)) 20 gm PO BID [facility] Last Admin: 04/06/17 22:19 Dose: Not Given Magnesium Sulfate (Magnesium Sulfate) 1 gm IVPB ONCE ONE Stop: 04/07/17 10:02 Ondansetron HCl (Zofran Injection) 4 mg IVPB Q8H PRN PRN Reason: NAUSEA Oxycodone HCl (Roxicodone -) 10 mg PO Q3H PRN PRN Reason: SEVERE PAIN Last Admin: 04/07/17 02:08 Dose: 10 mg Pantoprazole Sodium (Protonix -) 40 mg PO DAILY [facility] Last Admin: 04/06/17 10:00 Dose: 40 mg Polyethylene Glycol (Miralax (For Daily Use) -) 17 gm PO DAILY [facility] Last Admin: 04/06/17 10:00 Dose: Not Given Zinc Acetate/Diphenhydramine (Benadryl 2% Cream) 1 applic TP BID [facility] Last Admin: 04/06/17 22:19 Dose: Not Given - Objective Vital Signs: Vital Signs Temperature 98.5 F 04/07/17 06:00 Pulse Rate 71 04/07/17 06:00 Respiratory Rate 18 04/07/17 06:00 Blood Pressure 133/58 04/07/17 06:00 O2 Sat by Pulse Oximetry (%) 97 04/06/17 21:00 Constitutional: Yes: No Distress, Calm Cardiovascular: Yes: Regular Rate and Rhythm Respiratory: Yes: Regular, CTA Bilaterally Gastrointestinal: Yes: Normal Bowel Sounds Musculoskeletal: Yes: Other Extremities: Yes: Other (swelling of the hand improving) Neurological: Yes: Alert, Oriented Psychiatric: Yes: Alert Labs: CBC, BMP 04/07/17 06:00 04/07/17 08:40 INR, PTT INR 1.55 (0.82-1.09) H 03/26/17 09:04 Assessment/Plan Problem List - Problems (1) Acute renal failure (ARF) Code(s): N17.9 - ACUTE KIDNEY FAILURE, UNSPECIFIED Qualifiers: Qualified Code(s): N17.9 - Acute kidney failure, unspecified; N17.9 - Acute kidney failure, unspecified; N17.9 - Acute kidney failure, unspecified (2) GI bleed Code(s): K92.2 - GASTROINTESTINAL HEMORRHAGE, UNSPECIFIED Qualifiers: Qualified Code(s): K92.2 - Gastrointestinal hemorrhage, unspecified; K92.2 - Gastrointestinal hemorrhage, unspecified (3) Cellulitis Code(s): L03.90 - CELLULITIS, UNSPECIFIED Qualifiers: Qualified Code(s): L03.114 - Cellulitis of left upper limb; L03.114 - Cellulitis of left upper limb (4) CAD (coronary artery disease) Code(s): I25.10 - ATHSCL HEART DISEASE OF [place] CORONARY ARTERY W/O ANG PCTRS Qualifiers: Qualified Code(s): I25.110 - Atherosclerotic heart disease of [place] coronary artery with unstable angina pectoris; I25.110 - Atherosclerotic heart disease of [place] coronary artery with unstable angina pectoris; I25.110 - Atherosclerotic heart disease of [place] coronary artery with unstable angina pectoris; I25.110 - Atherosclerotic heart disease of [place] coronary artery with unstable angina pectoris (5) Gout Code(s): M10.9 - GOUT, UNSPECIFIED (6) Hypertension Code(s): I10 - ESSENTIAL (PRIMARY) HYPERTENSION Qualifiers: Qualified Code(s): I10 - Essential (primary) hypertension; I10 - Essential (primary) hypertension; I10 - Essential (primary) hypertension (7) Anemia Code(s): D64.9 - ANEMIA, UNSPECIFIED Qualifiers: Qualified Code(s): D50.0 - Iron deficiency anemia secondary to blood loss (chronic); D50.0 - Iron deficiency anemia secondary to blood loss (chronic ) (8) Leukocytosis Code(s): D72.829 - ELEVATED WHITE BLOOD CELL COUNT, UNSPECIFIED (9) Respiratory arrest Code(s): R09.2 - RESPIRATORY ARREST mssa bacteremia sepsis plan continue to monitor physio rest as per primary team patient improving
[2017-04-07] MEDS: CARVEDILOL 3.125 MG TABLET (FP) PO SCH ×2 (10:35→21:07)
[2017-04-07] MEDS: ALLOPURINOL 100 MG TABLET (FP) PO SCH (10:36)
[2017-04-07] MEDS: CHOLECALCIFEROL (VITAMIN D3) 1,000 UNIT TABLET (FP) PO SCH (10:36)
[2017-04-07] MEDS: LACTULOSE 20 GM/30 ML UDC (FOR ORAL USE ONLY) PO SCH ×2 (10:36→21:07)
[2017-04-07] MEDS: HEPARIN NA (PORCINE) 5,000 UNITS/ML 1ML VIAL SQ SCH ×2 (10:36→21:05)
[2017-04-07] MEDS: PANTOPRAZOLE 40 MG TABLET (FP) PO SCH (10:36)
[2017-04-07] MEDS: POLYETHYLENE GLYCOL 3350 119 GM BTL PO SCH (10:36)
--- NOTE | 2017-04-07 10:38 | PN ---
Progress Note, Physician Chief Complaint: Not in distress while sitting and clinically improved significantly. Pedal edema improved in lower extremity but it does extend up to thigh Dyspnea improving with ambulation. Denies chest pain Currently has good urine output History of Present Illness: Patient was seen and examined. Awake and alert. Chart was reviewed Denies chest pain or palpitations. Dyspnea with ambulation Tolerating therapy - Current Medication List Current Medications: Active Medications Allopurinol (Zyloprim -) 100 mg PO DAILY [facility] Last Admin: 04/06/17 10:01 Dose: 100 mg Carvedilol (Coreg -) 3.125 mg PO BID [facility] Last Admin: 04/06/17 22:19 Dose: 3.125 mg Cholecalciferol (Vitamin D3 -) 2,000 unit PO DAILY [facility] Last Admin: 04/06/17 10:00 Dose: 2,000 unit Heparin Sodium (Porcine) (Heparin -) 5,000 unit SQ BID [facility] Last Admin: 04/06/17 22:20 Dose: 5,000 unit IV Flush (Picc Line Flush) 8 ml IVPUSH PRN PRN PRN Reason: Protocol Insulin Aspart (Novolog Vial Sliding Scale -) 1 vial SQ TIDAC PAULINA PRN Reason: Protocol Last Admin: 04/07/17 07:04 Dose: Not Given Lactulose (Cephulac (Oral Use)) 20 gm PO BID [facility] Last Admin: 04/06/17 22:19 Dose: Not Given Magnesium Sulfate (Magnesium Sulfate) 1 gm IVPB ONCE ONE Stop: 04/07/17 10:02 Ondansetron HCl (Zofran Injection) 4 mg IVPB Q8H PRN PRN Reason: NAUSEA Oxycodone HCl (Roxicodone -) 10 mg PO Q3H PRN PRN Reason: SEVERE PAIN Last Admin: 04/07/17 02:08 Dose: 10 mg Pantoprazole Sodium (Protonix -) 40 mg PO DAILY [facility] Last Admin: 04/06/17 10:00 Dose: 40 mg Polyethylene Glycol (Miralax (For Daily Use) -) 17 gm PO DAILY [facility] Last Admin: 04/06/17 10:00 Dose: Not Given Zinc Acetate/Diphenhydramine (Benadryl 2% Cream) 1 applic TP BID [facility] Last Admin: 04/06/17 22:19 Dose: Not Given - Objective Vital Signs: Vital Signs Temperature 98.5 F 04/07/17 06:00 Pulse Rate 71 04/07/17 06:00 Respiratory Rate 18 04/07/17 06:00 Blood Pressure 133/58 04/07/17 06:00 O2 Sat by Pulse Oximetry (%) 97 04/06/17 21:00 Neck: Yes: Supple Cardiovascular: Yes: Regular Rate and Rhythm, S1, S2 Respiratory: Yes: Diminished Gastrointestinal: Yes: Normal Bowel Sounds, Soft. No: Tenderness Edema: Yes Edema: LLE: 2+, RLE: 2+ Additional Findings/Remarks: - Review of Systems Constitutional: no symptoms reported Respiratory: denies: Cough denies: Sputum Production Cardiovascular: denies: chest pain, SOB, palpitations Gastrointestinal: denies Nausea, Vomiting, Diarrhea, Constipation or Abdominal Pain Genitourinary: No symptoms reported Musculoskeletal: No symptoms reported Endocrine: No symptoms reported Labs: CBC, BMP 04/07/17 06:00 04/07/17 08:40 Problem List - Problems (1) Abnormal liver enzymes Code(s): R74.8 - ABNORMAL LEVELS OF OTHER SERUM ENZYMES (2) Acute renal failure (ARF) Code(s): N17.9 - ACUTE KIDNEY FAILURE, UNSPECIFIED Qualifiers: Qualified Code(s): N17.9 - Acute kidney failure, unspecified; N17.9 - Acute kidney failure, unspecified; N17.9 - Acute kidney failure, unspecified (3) Anemia Code(s): D64.9 - ANEMIA, UNSPECIFIED Qualifiers: Qualified Code(s): D50.0 - Iron deficiency anemia secondary to blood loss (chronic); D50.0 - Iron deficiency anemia secondary to blood loss (chronic ) (4) CAD (coronary artery disease) Code(s): I25.10 - ATHSCL HEART DISEASE OF [place] CORONARY ARTERY W/O ANG PCTRS Qualifiers: Qualified Code(s): I25.110 - Atherosclerotic heart disease of [place] coronary artery with unstable angina pectoris; I25.110 - Atherosclerotic heart disease of [place] coronary artery with unstable angina pectoris; I25.110 - Atherosclerotic heart disease of [place] coronary artery with unstable angina pectoris; I25.110 - Atherosclerotic heart disease of [place] coronary artery with unstable angina pectoris (5) Cellulitis Code(s): L03.90 - CELLULITIS, UNSPECIFIED Qualifiers: Qualified Code(s): L03.114 - Cellulitis of left upper limb; L03.114 - Cellulitis of left upper limb (6) Hyperlipidemia Code(s): E78.5 - HYPERLIPIDEMIA, UNSPECIFIED Qualifiers: Qualified Code(s): E78.00 - Pure hypercholesterolemia, unspecified; E78.00 - Pure hypercholesterolemia, unspecified; E78.00 - Pure hypercholesterolemia, unspecified; E78.0 - Pure hypercholesterolemia (7) Hypertension Code(s): I10 - ESSENTIAL (PRIMARY) HYPERTENSION Qualifiers: Qualified Code(s): I10 - Essential (primary) hypertension; I10 - Essential (primary) hypertension; I10 - Essential (primary) hypertension (8) MSSA (methicillin susceptible Staphylococcus aureus) infection Code(s): A49.01 - METHICILLIN SUSCEP STAPH INFECTION, UNSP SITE (9) Respiratory arrest before cardiac arrest Code(s): I46.9 - CARDIAC ARREST, CAUSE UNSPECIFIED R09.2 - RESPIRATORY ARREST (10) Hx of CABG Code(s): Z95.1 - PRESENCE OF AORTOCORONARY BYPASS GRAFT Assessment/Plan 1. Cardiopulmonary arrest with PEA (Pulseless Electrical Activity) post resuscitation and post respiratory failure 2. Abnormal EKG, unclear underlying atrial rhythm now resolved most likely related profound metabolic/lactic acidosis - resolved 3. CAD post CO/CABG angina pectoris with evidence of demand ischemic injury in context of acute pulmonary edema - resolved 4. Moderate LV systolic dysfunction with acute class III-IV NYHA classification LV failure - improved 5. Acute renal failure now off HD 6. Anemia, history of GI bleed related to peptic ulcer disease, post transfusion 7. History of HTN 8. DM 9. Hypercholesterolemia 10. Cellulitis with recent MSSA sepsis syndrome with septic shock and now with left psoas collection s/p drainage 11. Abnormal LFTs PLAN: 1. Continue Heparin SQ for now 2. Diuretics as needed. Give one dose of Demadex 40 mg PO. Continue to monitor renal function and electrolytes. Monitor volume status. Transthoracic echocardiography was repeated to re-assess LV systolic function before deciding SNF/rehab placement at [place]. Echocardiography revealed improved LV systolic function. See report. 3. Continue Coreg with uptitration as tolerated. 4. Restart Statin once LFT recovers 5. Transfusion PRN to maintain Hgb equal or > 8.0 6. PT and eventual rehab - await possible [place] rehab. Instructed patient to ambulate (continue with PT) and monitor O2 saturation. Patient will be able to tolerate 3 hours of intense rehab at [place], but will further optimize his clinical condition prior to transfer. 7. Renal follow up 8. Eventually will benefit from cardiac catheterization as outpatient in view of above history, but will wait until renal function normalizes Follow up in office once discharged from rehab Jonnathan Nogueira MD
[2017-04-07] MEDS ORDERED: TORSEMIDE 20 MG TABLET (FP) PO ONE (11:00)
[2017-04-07] MEDS ORDERED: MAGNESIUM SULF 50% (8.12 MEQ/2 ML-1 GM VIAL) IVPB ONE (11:00)
--- NOTE | 2017-04-07 14:49 | PN ---
Progress Note (short form) - Note Progress Note: Patient with MSSA sepsis and subsequent renal failure,respiratory arrest, Cardiac ischemia, marked liver enzyme elevation post arrest and GI bleedis improving both in lab and clinical picture. He still will get winded after walk in hallways and has significat body edema but on his personal calcultion has urinated over 2400 cc of urine toda. WBC normal; Hb stable at 8.2GM and BUN under 5o for the first time off dialysis and Creatinine down to 3.1. He had Echo yesterday with improved EF. Although there is intensive PT at [place] there is a good deal of OT and he can have respiratory PT help also epending on his continued need for Nasal O2. Seen by Cardiology and Renal MD's. On Eam: Vital Signs Temp 98.5 F 04/07/17 06:00 Pulse 71 04/07/17 06:00 Resp 18 04/07/17 06:00 BP 133/58 04/07/17 06:00 Pulse Ox 97 04/06/17 21:00 Intake & Output 04/06/17 04/07/17 04/07/17 23:59 11:59 23:59 Intake Total 420 200 Output Total 1000 1050 1600 Balance -580 -850 -1600 Weight 243 lb 6.4 oz Intake: Oral 420 200 Output: Urine 1000 1050 1600 Void 1000 1050 1600 Other: Voiding Method Urinal # Unmeasured Voids Void 3 Bowel Movement Yes: soft, large No # Bowel Movements 1 Weight Measurement Method Standing Scale Alert Chest: Decreased breath sounds Cor Reg Abd: Obese with pitting edema Ext 2+ edema right leg; 3-4+ edema left Abnormal Lab Results 04/07/17 04/07/17 06:00 08:40 RBC 2.65 L Hgb 8.2 L Hct 24.2 L RDW 17.5 H Eosinophils % 23.3 H* BUN 48 H Creatinine 3.1 H Random Glucose 133 H Phosphorus 5.0 H Magnesium 1.7 L IMP: Acute renal failure post MSSA sepsis Worsened pedal edema left leg R/O DVT Respiratory Arrest GI Bleed Blood loss anemia CABG S/P CABG X2 Cardiac Ischemia post arresPedal edema Gout Plan: Venous uyplex left leg F/U lab PT Transfer to [place] in process Problem List - Problems (1) Acute renal failure (ARF) Code(s): N17.9 - ACUTE KIDNEY FAILURE, UNSPECIFIED Qualifiers: Qualified Code(s): N17.9 - Acute kidney failure, unspecified; N17.9 - Acute kidney failure, unspecified; N17.9 - Acute kidney failure, unspecified (2) GI bleed Code(s): K92.2 - GASTROINTESTINAL HEMORRHAGE, UNSPECIFIED Qualifiers: Qualified Code(s): K92.2 - Gastrointestinal hemorrhage, unspecified; K92.2 - Gastrointestinal hemorrhage, unspecified (3) Cellulitis Code(s): L03.90 - CELLULITIS, UNSPECIFIED Qualifiers: Qualified Code(s): L03.114 - Cellulitis of left upper limb; L03.114 - Cellulitis of left upper limb (4) CAD (coronary artery disease) Code(s): I25.10 - ATHSCL HEART DISEASE OF [place] CORONARY ARTERY W/O ANG PCTRS Qualifiers: Qualified Code(s): I25.110 - Atherosclerotic heart disease of [place] coronary artery with unstable angina pectoris; I25.110 - Atherosclerotic heart disease of [place] coronary artery with unstable angina pectoris; I25.110 - Atherosclerotic heart disease of [place] coronary artery with unstable angina pectoris; I25.110 - Atherosclerotic heart disease of [place] coronary artery with unstable angina pectoris (5) Gout Code(s): M10.9 - GOUT, UNSPECIFIED (6) Hypertension Code(s): I10 - ESSENTIAL (PRIMARY) HYPERTENSION Qualifiers: Qualified Code(s): I10 - Essential (primary) hypertension; I10 - Essential (primary) hypertension; I10 - Essential (primary) hypertension (7) Anemia Code(s): D64.9 - ANEMIA, UNSPECIFIED Qualifiers: Qualified Code(s): D50.0 - Iron deficiency anemia secondary to blood loss (chronic); D50.0 - Iron deficiency anemia secondary to blood loss (chronic ) (8) Leukocytosis Code(s): D72.829 - ELEVATED WHITE BLOOD CELL COUNT, UNSPECIFIED (9) Respiratory arrest Code(s): R09.2 - RESPIRATORY ARREST
--- NOTE | 2017-04-07 15:06 | PN ---
Progress Note (short form) - Note Progress Note: Renal Follow up for JOE Pt seen and examined at the bedside no acute complaints making urine no sob Vital Signs Temperature 98.5 F 04/07/17 06:00 Pulse Rate 84 04/07/17 10:11 Respiratory Rate 18 04/07/17 06:00 Blood Pressure 133/58 04/07/17 06:00 O2 Sat by Pulse Oximetry (%) 98 04/07/17 10:11 Intake & Output 04/04/17 04/05/17 04/06/17 04/07/17 23:59 23:59 23:59 23:59 Intake Total 220 750 420 200 Output Total 1915 2690 2825 2650 Balance -2160 -9113 -4140 -2952 Weight 247 lb 3.2 oz 247 lb 2 oz 244 lb 2 oz 243 lb 6.4 oz Gen: NAD on NC O2 CVS: RRR Lungs: CTA no rales Abd: soft NT/ND Ext: 2+ edema in LE CBC, BMP 04/07/17 06:00 04/07/17 08:40 Current Medications Allopurinol (Zyloprim -) 100 mg PO DAILY [facility] Last Admin: 04/07/17 10:36 Dose: 100 mg Ascorbic Acid (Vitamin C -) 500 mg PO DAILY [facility] Carvedilol (Coreg -) 3.125 mg PO BID [facility] Last Admin: 04/07/17 10:35 Dose: 3.125 mg Cholecalciferol (Vitamin D3 -) 2,000 unit PO DAILY [facility] Last Admin: 04/07/17 10:36 Dose: 2,000 unit Ferrous Sulfate (Feosol -) 325 mg PO DAILY [facility] Heparin Sodium (Porcine) (Heparin -) 5,000 unit SQ BID [facility] Last Admin: 04/07/17 10:36 Dose: 5,000 unit IV Flush (Picc Line Flush) 8 ml IVPUSH PRN PRN PRN Reason: Protocol Insulin Aspart (Novolog Vial Sliding Scale -) 1 vial SQ TIDAC PAULINA PRN Reason: Protocol Last Admin: 04/07/17 12:07 Dose: 2 units Lactulose (Cephulac (Oral Use)) 20 gm PO BID [facility] Last Admin: 04/07/17 10:36 Dose: 20 gm Ondansetron HCl (Zofran Injection) 4 mg IVPB Q8H PRN PRN Reason: NAUSEA Oxycodone HCl (Roxicodone -) 5 mg PO Q3H PRN PRN Reason: SEVERE PAIN Pantoprazole Sodium (Protonix -) 40 mg PO DAILY [facility] Last Admin: 04/07/17 10:36 Dose: 40 mg Polyethylene Glycol (Miralax (For Daily Use) -) 17 gm PO DAILY [facility] Last Admin: 04/07/17 10:36 Dose: Not Given Zinc Acetate/Diphenhydramine (Benadryl 2% Cream) 1 applic TP BID [facility] Last Admin: 04/07/17 12:05 Dose: Not Given A/P 71 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 #Renal Failure with volume overload secondary to ATN Renal function improving and pt with good urine output pt still with volume overload but edema and edema improving w/o diuretics at the present time trend BUN/Cr and electrolytes no [place]/ARB/NSAIDs at this time Dose all meds for Cr Cl ~20 no indication for further diuretics D/c Planning as per primary to follow up in the office for CKD management Aubrey Acharya DO Problem List - Problems (1) Cellulitis Code(s): L03.90 - CELLULITIS, UNSPECIFIED Qualifiers: Qualified Code(s): L03.114 - Cellulitis of left upper limb; L03.114 - Cellulitis of left upper limb (2) Acute renal failure (ARF) Code(s): N17.9 - ACUTE KIDNEY FAILURE, UNSPECIFIED Qualifiers: Qualified Code(s): N17.9 - Acute kidney failure, unspecified; N17.9 - Acute kidney failure, unspecified; N17.9 - Acute kidney failure, unspecified (3) CAD (coronary artery disease) Code(s): I25.10 - ATHSCL HEART DISEASE OF [place] CORONARY ARTERY W/O ANG PCTRS Qualifiers: Qualified Code(s): I25.110 - Atherosclerotic heart disease of [place] coronary artery with unstable angina pectoris; I25.110 - Atherosclerotic heart disease of [place] coronary artery with unstable angina pectoris; I25.110 - Atherosclerotic heart disease of [place] coronary artery with unstable angina pectoris; I25.110 - Atherosclerotic heart disease of [place] coronary artery with unstable angina pectoris (4) Hypertension Code(s): I10 - ESSENTIAL (PRIMARY) HYPERTENSION Qualifiers: Qualified Code(s): I10 - Essential (primary) hypertension; I10 - Essential (primary) hypertension; I10 - Essential (primary) hypertension (5) Gout Code(s): M10.9 - GOUT, UNSPECIFIED (6) Leukocytosis Code(s): D72.829 - ELEVATED WHITE BLOOD CELL COUNT, UNSPECIFIED
[2017-04-07] MEDS: ASCORBIC ACID 500 MG TABLET (FP) PO SCH (17:16)
[2017-04-07] MEDS: FERROUS SO4 325 MG TABLET (FP) PO SCH (17:16)
[2017-04-08] MEDS: oxyCODONE HCL 5 MG TABLET PO PRN ×4 (05:17→23:49)
[2017-04-08] MEDS: INSULIN SLIDING SCALE (NOVOLOG) 1 VIAL SQ SCH ×3 (07:01→17:09)
[2017-04-08 07:23] LABS: BASOPHIL 0.9 % (0-2.0); EOSINOPHIL 22.4 % (0-4.5); MCH 31.3 pg (25.7-33.7); MCHC 34.4 g/dl (32.0-35.9); MEAN CELL VOLUME 90.8 fl (80-96); MEAN PLT VOLUME 8.2 fl (7.5-11.1); NEUTROPHILS 48.5 % (42.8-82.8); PLATELET COUNT 217 K/MM3 (134-434); RDW 17.3 % (11.9-15.9); WHITE BLOOD COUNT 7.7 K/mm3 (4.0-10.0)
[2017-04-08 07:57] LABS: ALBUMIN 1.8 g/dl (3.4-5.0); ANION GAP 10 (8-16); CALCIUM 8.6 mg/dL (8.5-10.1); CO2 31 mmol/L (21-32); CREATININE 3.1 mg/dL (0.7-1.3); GLUCOSE,RANDOM 129 mg/dL (74-106); SGOT/AST 22 U/L (15-37); SGPT/ALT 29 U/L (12-78)
[2017-04-08 07:59] LABS: ALK PHOS 123 U/L (45-117); BILIRUBIN,TOTAL 2.2 mg/dL (0.2-1.0); TOT PROT 5.5 g/dl (6.4-8.2)
--- NOTE | 2017-04-08 09:00 | PN ---
Progress Note (short form) - Note Progress Note: Patient urinated nearly 3000cc yesterday after Torsemide 40mg yet Creatinine held at 4.1 and BUN 45. We order 20mg a day. K 3.2; will x KCL. Venous duplex left : No DVT Less SOB On Exam: Vital Signs Temp 98.2 F 04/08/17 06:00 Pulse 65 04/08/17 06:00 Resp 16 04/08/17 06:00 BP 133/63 04/08/17 06:00 Pulse Ox 98 04/07/17 10:11 Intake & Output 04/07/17 04/07/17 04/08/17 11:59 23:59 11:59 Intake Total 200 200 100 Output Total 1050 3900 1100 Balance -850 -3700 -1000 Weight 243 lb 6.4 oz 236 lb Intake: Oral 200 200 100 Output: Urine 1050 3900 1100 Void 1050 3900 1100 Other: Voiding Method Urinal Urinal Bowel Movement No No Weight Measurement Method Standing Scale Standing Scale Alert Chest: Decreased Breath sounds; no rales Cor: Reg Abd : Soft Ext: Less pedal edema Abnormal Lab Results 04/07/17 04/08/17 04/08/17 08:40 05:35 05:35 RBC 2.56 L Hgb 8.0 L Hct 23.2 L RDW 17.3 H Monocytes % 11.1 H Eosinophils % 22.4 H* Potassium 3.2 L BUN 48 H 45 H Creatinine 3.1 H 3.1 H Random Glucose 133 H 129 H Phosphorus 5.0 H Magnesium 1.7 L Total Bilirubin 2.2 H Alkaline Phosphatase 123 H D Total Protein 5.5 L Albumin 1.8 L IMP: Acute Renal Failure from MSSA sepsis Respiratory Arrest Liver Ischemia resolved S/P CABG X2 GI Bleed with anemia S/P Blood transfusions Plan: KCL Rx Torsemide 20mg/day F/U Lab Rehab Problem List - Problems (1) Acute renal failure (ARF) Code(s): N17.9 - ACUTE KIDNEY FAILURE, UNSPECIFIED Qualifiers: Qualified Code(s): N17.9 - Acute kidney failure, unspecified; N17.9 - Acute kidney failure, unspecified; N17.9 - Acute kidney failure, unspecified (2) GI bleed Code(s): K92.2 - GASTROINTESTINAL HEMORRHAGE, UNSPECIFIED Qualifiers: Qualified Code(s): K92.2 - Gastrointestinal hemorrhage, unspecified; K92.2 - Gastrointestinal hemorrhage, unspecified (3) Cellulitis Code(s): L03.90 - CELLULITIS, UNSPECIFIED Qualifiers: Qualified Code(s): L03.114 - Cellulitis of left upper limb; L03.114 - Cellulitis of left upper limb (4) CAD (coronary artery disease) Code(s): I25.10 - ATHSCL HEART DISEASE OF [place] CORONARY ARTERY W/O ANG PCTRS Qualifiers: Qualified Code(s): I25.110 - Atherosclerotic heart disease of [place] coronary artery with unstable angina pectoris; I25.110 - Atherosclerotic heart disease of [place] coronary artery with unstable angina pectoris; I25.110 - Atherosclerotic heart disease of [place] coronary artery with unstable angina pectoris; I25.110 - Atherosclerotic heart disease of [place] coronary artery with unstable angina pectoris (5) Gout Code(s): M10.9 - GOUT, UNSPECIFIED (6) Hypertension Code(s): I10 - ESSENTIAL (PRIMARY) HYPERTENSION Qualifiers: Qualified Code(s): I10 - Essential (primary) hypertension; I10 - Essential (primary) hypertension; I10 - Essential (primary) hypertension (7) Anemia Code(s): D64.9 - ANEMIA, UNSPECIFIED Qualifiers: Qualified Code(s): D50.0 - Iron deficiency anemia secondary to blood loss (chronic); D50.0 - Iron deficiency anemia secondary to blood loss (chronic ) (8) Leukocytosis Code(s): D72.829 - ELEVATED WHITE BLOOD CELL COUNT, UNSPECIFIED (9) Respiratory arrest Code(s): R09.2 - RESPIRATORY ARREST
[2017-04-08] MEDS ORDERED: KCL 10 MEQ IVPB 100 ML IVPB SCH (09:30)
[2017-04-08] MEDS: TORSEMIDE 20 MG TABLET (FP) PO SCH (10:13)
[2017-04-08] MEDS: ASCORBIC ACID 500 MG TABLET (FP) PO SCH (10:13)
[2017-04-08] MEDS: FERROUS SO4 325 MG TABLET (FP) PO SCH (10:13)
[2017-04-08] MEDS: LACTULOSE 20 GM/30 ML UDC (FOR ORAL USE ONLY) PO SCH ×2 (10:13→22:05)
[2017-04-08] MEDS: PANTOPRAZOLE 40 MG TABLET (FP) PO SCH (10:13)
[2017-04-08] MEDS: CARVEDILOL 3.125 MG TABLET (FP) PO SCH (10:13)
[2017-04-08] MEDS: ALLOPURINOL 100 MG TABLET (FP) PO SCH (10:13)
[2017-04-08] MEDS: HEPARIN NA (PORCINE) 5,000 UNITS/ML 1ML VIAL SQ SCH ×2 (10:13→22:06)
[2017-04-08] MEDS: POTASSIUM CHLORIDE TABS 20 MEQ TABLET.ER (FP) PO SCH ×2 (10:13→22:06)
[2017-04-08] MEDS: CHOLECALCIFEROL (VITAMIN D3) 1,000 UNIT TABLET (FP) PO SCH (10:13)
[2017-04-08] MEDS: POLYETHYLENE GLYCOL 3350 119 GM BTL PO SCH (10:19)
[2017-04-08] MEDS ORDERED: INSULIN (NOVOLOG) ASPART 100 UNITS/ML 10ML VIAL ONE ×2 (11:53→19:06)
[2017-04-08] MEDS ORDERED: SODIUM CHLORIDE 0.45%/POT 1,000 ML IV SCH (12:15)
--- NOTE | 2017-04-08 12:56 | PN ---
Progress Note (short form) - Note Progress Note: Renal Follow up for JOE Pt seen and examined at the bedside making a lot of urine no sob, chest pain leg edema is improving Vital Signs Temperature 98.2 F 04/08/17 06:00 Pulse Rate 65 04/08/17 06:00 Respiratory Rate 16 04/08/17 06:00 Blood Pressure 133/63 04/08/17 06:00 O2 Sat by Pulse Oximetry (%) 98 04/07/17 10:11 Intake & Output 04/05/17 04/06/17 04/07/17 04/08/17 23:59 23:59 23:59 23:59 Intake Total 750 420 400 100 Output Total 2690 2825 4950 1100 Balance -1940 2405 -1560 -1000 Weight 247 lb 2 oz 244 lb 2 oz 243 lb 6.4 oz 236 lb Gen: NAD on NC O2 CVS: RRR Lungs: CTA no rales Abd: soft NT/ND Ext: 2+ edema in LE CBC, BMP 04/08/17 05:35 04/08/17 05:35 Laboratory Tests 04/08/17 04/08/17 05:35 05:35 Calcium 8.6 Total Bilirubin 2.2 H AST 22 D ALT 29 D Alkaline Phosphatase 123 H D Albumin 1.8 L Vitamin B12 1064 H Current Medications Allopurinol (Zyloprim -) 100 mg PO DAILY [facility] Last Admin: 04/08/17 10:13 Dose: 100 mg Ascorbic Acid (Vitamin C -) 500 mg PO DAILY [facility] Last Admin: 04/08/17 10:13 Dose: 500 mg Carvedilol (Coreg -) 3.125 mg PO BID [facility] Last Admin: 04/08/17 10:13 Dose: 3.125 mg Cholecalciferol (Vitamin D3 -) 2,000 unit PO DAILY [facility] Last Admin: 04/08/17 10:13 Dose: 2,000 unit Ferrous Sulfate (Feosol -) 325 mg PO DAILY [facility] Last Admin: 04/08/17 10:13 Dose: 325 mg Heparin Sodium (Porcine) (Heparin -) 5,000 unit SQ BID [facility] Last Admin: 04/08/17 10:13 Dose: 5,000 unit Potassium Chloride/Sodium Chloride (1/2ns+20meq Kcl) 1,000 mls @ 83 mls/hr IV ASDIR [facility] Insulin Aspart (Novolog Vial Sliding Scale -) 1 vial SQ TIDAC PAULINA PRN Reason: Protocol Last Admin: 04/08/17 12:24 Dose: 4 units Lactulose (Cephulac (Oral Use)) 20 gm PO BID [facility] Last Admin: 04/08/17 10:13 Dose: 20 gm Ondansetron HCl (Zofran Injection) 4 mg IVPB Q8H PRN PRN Reason: NAUSEA Oxycodone HCl (Roxicodone -) 5 mg PO Q3H PRN PRN Reason: SEVERE PAIN Last Admin: 04/08/17 11:21 Dose: 5 mg Pantoprazole Sodium (Protonix -) 40 mg PO DAILY [facility] Last Admin: 04/08/17 10:13 Dose: 40 mg Polyethylene Glycol (Miralax (For Daily Use) -) 17 gm PO DAILY [facility] Last Admin: 04/08/17 10:19 Dose: Not Given Potassium Chloride (K-Dur -) 20 meq PO BID [facility] Last Admin: 04/08/17 10:13 Dose: 20 meq Torsemide (Demadex -) 20 mg PO DAILY [facility] Last Admin: 04/08/17 10:13 Dose: 20 mg Zinc Acetate/Diphenhydramine (Benadryl 2% Cream) 1 applic TP BID [facility] Last Admin: 04/08/17 11:26 Dose: Not Given A/P 71 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 #Renal Failure with volume overload secondary to ATN Renal function improving pt is polyuric at this point (urine output > 4L) start 1/2 NS at 83cc per hour Trend BUN/Cr no [place]/ARB/NSAIDs supplement electrolytes to keep K > 4, Mg > 2 Aubrey Acharya DO Problem List - Problems (1) Cellulitis Code(s): L03.90 - CELLULITIS, UNSPECIFIED Qualifiers: Qualified Code(s): L03.114 - Cellulitis of left upper limb; L03.114 - Cellulitis of left upper limb (2) Acute renal failure (ARF) Code(s): N17.9 - ACUTE KIDNEY FAILURE, UNSPECIFIED Qualifiers: Qualified Code(s): N17.9 - Acute kidney failure, unspecified; N17.9 - Acute kidney failure, unspecified; N17.9 - Acute kidney failure, unspecified (3) CAD (coronary artery disease) Code(s): I25.10 - ATHSCL HEART DISEASE OF [place] CORONARY ARTERY W/O ANG PCTRS Qualifiers: Qualified Code(s): I25.110 - Atherosclerotic heart disease of [place] coronary artery with unstable angina pectoris; I25.110 - Atherosclerotic heart disease of [place] coronary artery with unstable angina pectoris; I25.110 - Atherosclerotic heart disease of [place] coronary artery with unstable angina pectoris; I25.110 - Atherosclerotic heart disease of [place] coronary artery with unstable angina pectoris (4) Hypertension Code(s): I10 - ESSENTIAL (PRIMARY) HYPERTENSION Qualifiers: Qualified Code(s): I10 - Essential (primary) hypertension; I10 - Essential (primary) hypertension; I10 - Essential (primary) hypertension (5) Gout Code(s): M10.9 - GOUT, UNSPECIFIED (6) Leukocytosis Code(s): D72.829 - ELEVATED WHITE BLOOD CELL COUNT, UNSPECIFIED
--- NOTE | 2017-04-08 14:48 | PN ---
Progress Note, Physician History of Present Illness: doing good lot of urine output able to take shower without o2 feels better - Current Medication List Current Medications: Active Medications Allopurinol (Zyloprim -) 100 mg PO DAILY [facility] Last Admin: 04/08/17 10:13 Dose: 100 mg Ascorbic Acid (Vitamin C -) 500 mg PO DAILY [facility] Last Admin: 04/08/17 10:13 Dose: 500 mg Carvedilol (Coreg -) 3.125 mg PO BID [facility] Last Admin: 04/08/17 10:13 Dose: 3.125 mg Cholecalciferol (Vitamin D3 -) 2,000 unit PO DAILY [facility] Last Admin: 04/08/17 10:13 Dose: 2,000 unit Ferrous Sulfate (Feosol -) 325 mg PO DAILY [facility] Last Admin: 04/08/17 10:13 Dose: 325 mg Heparin Sodium (Porcine) (Heparin -) 5,000 unit SQ BID [facility] Last Admin: 04/08/17 10:13 Dose: 5,000 unit Potassium Chloride/Sodium Chloride (1/2ns+20meq Kcl) 1,000 mls @ 83 mls/hr IV ASDIR [facility] Last Admin: 04/08/17 13:11 Dose: 83 mls/hr Insulin Aspart (Novolog Vial Sliding Scale -) 1 vial SQ TIDAC [facility] PRN Reason: Protocol Last Admin: 04/08/17 12:24 Dose: 4 units Lactulose (Cephulac (Oral Use)) 20 gm PO BID [facility] Last Admin: 04/08/17 10:13 Dose: 20 gm Ondansetron HCl (Zofran Injection) 4 mg IVPB Q8H PRN PRN Reason: NAUSEA Oxycodone HCl (Roxicodone -) 5 mg PO Q3H PRN PRN Reason: SEVERE PAIN Last Admin: 04/08/17 11:21 Dose: 5 mg Pantoprazole Sodium (Protonix -) 40 mg PO DAILY [facility] Last Admin: 04/08/17 10:13 Dose: 40 mg Polyethylene Glycol (Miralax (For Daily Use) -) 17 gm PO DAILY [facility] Last Admin: 04/08/17 10:19 Dose: Not Given Potassium Chloride (K-Dur -) 20 meq PO BID [facility] Last Admin: 04/08/17 10:13 Dose: 20 meq Torsemide (Demadex -) 20 mg PO DAILY [facility] Last Admin: 04/08/17 10:13 Dose: 20 mg Zinc Acetate/Diphenhydramine (Benadryl 2% Cream) 1 applic TP BID [facility] Last Admin: 04/08/17 11:26 Dose: Not Given - Objective Vital Signs: Vital Signs Temperature 98.4 F 04/08/17 13:09 Pulse Rate 76 04/08/17 13:09 Respiratory Rate 16 04/08/17 13:09 Blood Pressure 137/63 04/08/17 13:09 O2 Sat by Pulse Oximetry (%) 98 04/07/17 10:11 Constitutional: Yes: No Distress, Calm Cardiovascular: Yes: Regular Rate and Rhythm Respiratory: Yes: Regular, CTA Bilaterally Gastrointestinal: Yes: Normal Bowel Sounds, Soft Musculoskeletal: Yes: WNL Extremities: Yes: Other Neurological: Yes: Alert, Oriented Psychiatric: Yes: Alert, Oriented Labs: CBC, BMP 04/08/17 05:35 04/08/17 05:35 INR, PTT INR 1.55 (0.82-1.09) H 03/26/17 09:04 Assessment/Plan Problem List - Problems (1) Acute renal failure (ARF) Code(s): N17.9 - ACUTE KIDNEY FAILURE, UNSPECIFIED Qualifiers: Qualified Code(s): N17.9 - Acute kidney failure, unspecified; N17.9 - Acute kidney failure, unspecified; N17.9 - Acute kidney failure, unspecified (2) GI bleed Code(s): K92.2 - GASTROINTESTINAL HEMORRHAGE, UNSPECIFIED Qualifiers: Qualified Code(s): K92.2 - Gastrointestinal hemorrhage, unspecified; K92.2 - Gastrointestinal hemorrhage, unspecified (3) Cellulitis Code(s): L03.90 - CELLULITIS, UNSPECIFIED Qualifiers: Qualified Code(s): L03.114 - Cellulitis of left upper limb; L03.114 - Cellulitis of left upper limb (4) CAD (coronary artery disease) Code(s): I25.10 - ATHSCL HEART DISEASE OF [place] CORONARY ARTERY W/O ANG PCTRS Qualifiers: Qualified Code(s): I25.110 - Atherosclerotic heart disease of [place] coronary artery with unstable angina pectoris; I25.110 - Atherosclerotic heart disease of [place] coronary artery with unstable angina pectoris; I25.110 - Atherosclerotic heart disease of [place] coronary artery with unstable angina pectoris; I25.110 - Atherosclerotic heart disease of [place] coronary artery with unstable angina pectoris (5) Gout Code(s): M10.9 - GOUT, UNSPECIFIED (6) Hypertension Code(s): I10 - ESSENTIAL (PRIMARY) HYPERTENSION Qualifiers: Qualified Code(s): I10 - Essential (primary) hypertension; I10 - Essential (primary) hypertension; I10 - Essential (primary) hypertension (7) Anemia Code(s): D64.9 - ANEMIA, UNSPECIFIED Qualifiers: Qualified Code(s): D50.0 - Iron deficiency anemia secondary to blood loss (chronic); D50.0 - Iron deficiency anemia secondary to blood loss (chronic ) (8) Leukocytosis Code(s): D72.829 - ELEVATED WHITE BLOOD CELL COUNT, UNSPECIFIED (9) Respiratory arrest Code(s): R09.2 - RESPIRATORY ARREST mssa bacteremia sepsis plan continue to monitor physio cr 3.1 rest as per primary team patient improving
--- NOTE | 2017-04-08 15:30 | PN ---
Progress Note, Physician History of Present Illness: Remains comfortable on NC, hemodynamically stable. Diuresing well on Demadex. - Current Medication List Current Medications: Active Medications Allopurinol (Zyloprim -) 100 mg PO DAILY [facility] Last Admin: 04/08/17 10:13 Dose: 100 mg Ascorbic Acid (Vitamin C -) 500 mg PO DAILY [facility] Last Admin: 04/08/17 10:13 Dose: 500 mg Carvedilol (Coreg -) 3.125 mg PO BID [facility] Last Admin: 04/08/17 10:13 Dose: 3.125 mg Cholecalciferol (Vitamin D3 -) 2,000 unit PO DAILY [facility] Last Admin: 04/08/17 10:13 Dose: 2,000 unit Ferrous Sulfate (Feosol -) 325 mg PO DAILY [facility] Last Admin: 04/08/17 10:13 Dose: 325 mg Heparin Sodium (Porcine) (Heparin -) 5,000 unit SQ BID [facility] Last Admin: 04/08/17 10:13 Dose: 5,000 unit Potassium Chloride/Sodium Chloride (1/2ns+20meq Kcl) 1,000 mls @ 83 mls/hr IV ASDIR [facility] Last Admin: 04/08/17 13:11 Dose: 83 mls/hr Insulin Aspart (Novolog Vial Sliding Scale -) 1 vial SQ TIDAC [facility] PRN Reason: Protocol Last Admin: 04/08/17 12:24 Dose: 4 units Lactulose (Cephulac (Oral Use)) 20 gm PO BID [facility] Last Admin: 04/08/17 10:13 Dose: 20 gm Ondansetron HCl (Zofran Injection) 4 mg IVPB Q8H PRN PRN Reason: NAUSEA Oxycodone HCl (Roxicodone -) 5 mg PO Q3H PRN PRN Reason: SEVERE PAIN Last Admin: 04/08/17 11:21 Dose: 5 mg Pantoprazole Sodium (Protonix -) 40 mg PO DAILY [facility] Last Admin: 04/08/17 10:13 Dose: 40 mg Polyethylene Glycol (Miralax (For Daily Use) -) 17 gm PO DAILY [facility] Last Admin: 04/08/17 10:19 Dose: Not Given Potassium Chloride (K-Dur -) 20 meq PO BID [facility] Last Admin: 04/08/17 10:13 Dose: 20 meq Torsemide (Demadex -) 20 mg PO DAILY [facility] Last Admin: 04/08/17 10:13 Dose: 20 mg Zinc Acetate/Diphenhydramine (Benadryl 2% Cream) 1 applic TP BID [facility] Last Admin: 04/08/17 11:26 Dose: Not Given - Objective Vital Signs: Vital Signs Temperature 98.4 F 04/08/17 13:09 Pulse Rate 76 04/08/17 13:09 Respiratory Rate 16 04/08/17 13:09 Blood Pressure 137/63 04/08/17 13:09 O2 Sat by Pulse Oximetry (%) 98 04/07/17 10:11 Constitutional: Yes: No Distress, Calm Neck: Yes: Supple Cardiovascular: Yes: Regular Rate and Rhythm Respiratory: Yes: Regular, Diminished Gastrointestinal: Yes: Normal Bowel Sounds, Soft Edema: Yes Edema: LLE: 1+, RLE: 1+ Labs: CBC, BMP 04/08/17 05:35 04/08/17 05:35 INR, PTT INR 1.55 (0.82-1.09) H 03/26/17 09:04 - ....Imaging Ultrasound: Report Reviewed (No DVT left) Problem List - Problems (1) Acute renal failure (ARF) Code(s): N17.9 - ACUTE KIDNEY FAILURE, UNSPECIFIED Qualifiers: Qualified Code(s): N17.9 - Acute kidney failure, unspecified; N17.9 - Acute kidney failure, unspecified; N17.9 - Acute kidney failure, unspecified (2) CAD (coronary artery disease) Code(s): I25.10 - ATHSCL HEART DISEASE OF [place] CORONARY ARTERY W/O ANG PCTRS Qualifiers: Qualified Code(s): I25.110 - Atherosclerotic heart disease of [place] coronary artery with unstable angina pectoris; I25.110 - Atherosclerotic heart disease of [place] coronary artery with unstable angina pectoris; I25.110 - Atherosclerotic heart disease of [place] coronary artery with unstable angina pectoris; I25.110 - Atherosclerotic heart disease of [place] coronary artery with unstable angina pectoris (3) Cellulitis Code(s): L03.90 - CELLULITIS, UNSPECIFIED Qualifiers: Qualified Code(s): L03.114 - Cellulitis of left upper limb; L03.114 - Cellulitis of left upper limb (4) GI bleed Code(s): K92.2 - GASTROINTESTINAL HEMORRHAGE, UNSPECIFIED Qualifiers: Qualified Code(s): K92.2 - Gastrointestinal hemorrhage, unspecified; K92.2 - Gastrointestinal hemorrhage, unspecified (5) Hypertension Code(s): I10 - ESSENTIAL (PRIMARY) HYPERTENSION Qualifiers: Qualified Code(s): I10 - Essential (primary) hypertension; I10 - Essential (primary) hypertension; I10 - Essential (primary) hypertension (6) MSSA (methicillin susceptible Staphylococcus aureus) infection Code(s): A49.01 - METHICILLIN SUSCEP STAPH INFECTION, UNSP SITE (7) Respiratory arrest before cardiac arrest Code(s): I46.9 - CARDIAC ARREST, CAUSE UNSPECIFIED R09.2 - RESPIRATORY ARREST (8) Hyperlipidemia Code(s): E78.5 - HYPERLIPIDEMIA, UNSPECIFIED Qualifiers: Qualified Code(s): E78.00 - Pure hypercholesterolemia, unspecified; E78.00 - Pure hypercholesterolemia, unspecified; E78.00 - Pure hypercholesterolemia, unspecified; E78.0 - Pure hypercholesterolemia (9) Cholestasis Code(s): K83.1 - OBSTRUCTION OF BILE DUCT (10) Anemia Code(s): D64.9 - ANEMIA, UNSPECIFIED Qualifiers: Qualified Code(s): D50.0 - Iron deficiency anemia secondary to blood loss (chronic); D50.0 - Iron deficiency anemia secondary to blood loss (chronic ) Assessment/Plan 03/17/2017 CHEN 1. LV wall motion abnormality with moderate reduction in LV EF, estimated between 35-40% 2. MAC 3. Normal Mitral valve leaflets with no vegitation, trace to mild MR 4. AV sclerosis with no vegitation, no AI 5. Normal Tricuspid leaflets with no vegitation, mild TR 6. Faintly visualized Pulmonic valve with no vegitation 7. Intact atrial septum with no intra-cardiac shunting by color flow 8. Mild to degree of layered athero-sclerosis in the descending thoracic aorta and the distal thoracic arch 04/07/2017 Echo: Normal LV size with mild decreased LV fxn, mod LAE, tr MR improved from previous study 1. Cardiopulmonary arrest with PEA (Pulseless Electrical Activity) post resuscitation and post respiratory failure 2. Abnormal EKG, unclear underlying atrial rhythm now resolved most likely related profound metabolic/lactic acidosis 3. CAD post SD/CABG angina pectoris with evidence of demand ischemic injury in context of acute pulmonary edema - resolved 4. Mild LV systolic dysfunction with acute class III-IV NYHA classification LV failure resolved 5. Acute kidney injury post HD with post ATN diuresis resolving 6. Anemia, recent GI bleed related to peptic ulcer disease, post transfusion 7. History of HTN - episode of hypotension post pressor support - now stable 8. DM 9. Hypercholesterolemia 10. Left hand cellulitis with MSSA sepsis syndrome and septic shock and left psoas collection post drainage resolved PLAN: 1. Continue Heparin SQ and Protonix 40 qd, compression therapy, start Plavix once Hgb stabilizes 2. Diuretics as needed per renal service with K repletion 3. Increase Coreg 6.25 bid with uptitration as tolerated. Restart Statin once LFT recovers 4. Transfusion PRN to maintain Hgb equal or > 8.0 5. Completed Abx course per ID, f/u wound and blood cultures NGTD 6. PT->rehab, patient may proceed with acute rehab from CV standpoint
[2017-04-08] MEDS: CARVEDILOL 6.25 MG TABLET (FP) PO SCH (22:06)
[2017-04-09] MEDS: INSULIN SLIDING SCALE (NOVOLOG) 1 VIAL SQ SCH (06:03)
[2017-04-09] MEDS: oxyCODONE HCL 5 MG TABLET PO PRN ×2 (07:05→10:49)
[2017-04-09 08:24] LABS: BASOPHIL 1.3 % (0-2.0); EOSINOPHIL 20.7 % (0-4.5); MCH 30.5 pg (25.7-33.7); MCHC 33.8 g/dl (32.0-35.9); MEAN CELL VOLUME 90.5 fl (80-96); MEAN PLT VOLUME 8.3 fl (7.5-11.1); NEUTROPHILS 50.9 % (42.8-82.8); PLATELET COUNT 249 K/MM3 (134-434); RDW 16.7 % (11.9-15.9); WHITE BLOOD COUNT 7.9 K/mm3 (4.0-10.0)
[2017-04-09 08:46] LABS: ANION GAP 12 (8-16); CALCIUM 8.6 mg/dL (8.5-10.1); CO2 31 mmol/L (21-32); GLUCOSE,RANDOM 139 mg/dL (74-106); MAGNESIUM 1.7 mg/dL (1.8-2.4)
[2017-04-09 08:49] LABS: PHOSPHOROUS 5.1 mg/dL (2.5-4.9)
--- NOTE | 2017-04-09 08:59 | DS ---
Physical Examination Vital Signs: Vital Signs Temperature 98.6 F 04/09/17 06:00 Pulse Rate 70 04/09/17 06:00 Respiratory Rate 20 04/09/17 06:00 Blood Pressure 129/58 04/09/17 06:00 O2 Sat by Pulse Oximetry (%) 97 04/08/17 21:00 Constitutional: Yes: Calm Eyes: No: Sclera Icterus Cardiovascular: Yes: Regular Rate and Rhythm Respiratory: Yes: Diminished Gastrointestinal: Yes: Abdomen, Obese Edema: LLE: 2+, RLE: 1+ Integumentary: Yes: Rash (scaling over tibias) Neurological: Yes: Alert, Oriented Labs: CBC, BMP 04/09/17 05:35 04/09/17 05:35 Discharge Summary Reason For Visit: CELLULITIS LEFT ARM Current Active Problems Abnormal liver enzymes (Acute) Acute renal failure (ARF) (Acute) Anemia (Acute) CAD (coronary artery disease) (Acute) Cellulitis (Acute) Cholestasis (Acute) GI bleed (Acute) Gout (Acute) Hx of CABG (Acute) Hyperlipidemia (Acute) Hypertension (Acute) Leukocytosis (Acute) MSSA (methicillin susceptible Staphylococcus aureus) infection (Acute) Respiratory arrest (Acute) Respiratory arrest before cardiac arrest (Acute) Septic arthritis (Acute) Anemia(blood loss) acute Procedures: Principal: Multiple days of dialysis and antibiotics IV. Other Procedures: Head Nurse post arrest. Daily labs. Blood transfusions Hospital Course: Very slow to improve due to renal failure and dialysis but not no dialysis for 1 week and major improvement in urine output. Condition: Stable - Instructions Diet, Activity, Other Instructions: No added salt renal diet; diabetic Please do cbc and basic profile Q2 days PT and OT and respiratory PT if able The renal MD ordered IV fluid yesterday due to nearly 5000cc urine output but that is now D/Luis. Referrals: Denny Mahoney MD [Staff Physician] - Joshua Boyd MD [Primary Care Provider] - Aubrey Acharya MD [Staff Physician] - Disposition: TRANSFER ACUTE CARE/OTHER HOSP - Home Medications Comprehensive Discharge Medication List: Ambulatory Orders Allopurinol [Zyloprim -] 300 mg PO DAILY 02/25/17 Cholecalciferol (Vitamin D3) [Vitamin D3] 2,000 unit PO DAILY 02/25/17 Meclizine HCl 25 mg PO TID PRN 02/25/17 Ascorbic Acid [Vitamin C -] 500 mg PO DAILY tablet 04/07/17 Diphenhydramine HCl/Zinc Acet [Benadryl 2% Cream] 1 applic TP BID tube Ferrous Sulfate [Feosol] 325 mg PO DAILY tab 04/07/17 Heparin - 5,000 unit SQ BID vial 04/07/17 Lactulose (Oral Use) [Cephulac -] 20 gm PO BID #240 ml 04/07/17 Oxycodone HCl [Roxicodone -] 5 mg PO Q3H PRN #0 tablet MDD 4 04/07/17 Pantoprazole Sodium [Protonix -] 40 mg PO DAILY cap 04/07/17 Polyethylene Glycol 3350 [Miralax 119 gm Btl -] 17 gm PO DAILY bottle 04/07/17 Carvedilol [Coreg -] 6.25 mg PO BID tablet 04/09/17 Potassium Chloride [K-Dur -] 20 meq PO BID tab 04/09/17 Torsemide [Demadex -] 20 mg PO DAILY tablet 04/09/17
[2017-04-09] MEDS ORDERED: MAGNESIUM SULF 50% (8.12 MEQ/2 ML-1 GM VIAL) IVPB ONE (09:20)
[2017-04-09] MEDS: HEPARIN NA (PORCINE) 5,000 UNITS/ML 1ML VIAL SQ SCH (09:34)
[2017-04-09] MEDS: FERROUS SO4 325 MG TABLET (FP) PO SCH (09:35)
[2017-04-09] MEDS: CARVEDILOL 6.25 MG TABLET (FP) PO SCH (09:35)
[2017-04-09] MEDS: ASCORBIC ACID 500 MG TABLET (FP) PO SCH (09:35)
[2017-04-09] MEDS: POTASSIUM CHLORIDE TABS 20 MEQ TABLET.ER (FP) PO SCH (09:35)
[2017-04-09] MEDS: TORSEMIDE 20 MG TABLET (FP) PO SCH (09:35)
[2017-04-09] MEDS: PANTOPRAZOLE 40 MG TABLET (FP) PO SCH (09:35)
[2017-04-09] MEDS: CHOLECALCIFEROL (VITAMIN D3) 1,000 UNIT TABLET (FP) PO SCH (09:35)
[2017-04-09] MEDS: POLYETHYLENE GLYCOL 3350 119 GM BTL PO SCH (09:36)
[2017-04-09] MEDS: LACTULOSE 20 GM/30 ML UDC (FOR ORAL USE ONLY) PO SCH (09:36)
[2017-04-09] MEDS: ALLOPURINOL 100 MG TABLET (FP) PO SCH (10:00)
[2017-04-09 10:09] VITALS: BP 123/55; PULSE 65; TEMP 98
== END 2017-04-09 11:03 | DRG 853 ==
LOC: JER 14:48 → JERBED 18:09 → J5S 19:40 → JICU 02-27 18:57 → J5S 03-03 17:18 → J4S 03-11 17:51 → JICU 03-15 15:53 → J4S 03-18 14:55
PROVIDERS: ADMIT Internal Medicine; ATTEND Internal Medicine
PROC: 05HM33Z Insertion of Infusion Device into Right Internal Jugular Vein, Percutaneous Approach (ICD-10-PCS; 2017-02-28)
PROC: B513ZZA Fluoroscopy of Right Jugular Veins, Guidance (ICD-10-PCS; 2017-02-28)
PROC: 5A1D70Z Performance of Urinary Filtration, Intermittent, Less than 6 Hours Per Day (ICD-10-PCS; 2017-02-28)
PROC: 05HM33Z Insertion of Infusion Device into Right Internal Jugular Vein, Percutaneous Approach (ICD-10-PCS; 2017-03-06)
PROC: B513ZZA Fluoroscopy of Right Jugular Veins, Guidance (ICD-10-PCS; 2017-03-06)
PROC: 30233H1 Transfusion of Nonautologous Whole Blood into Peripheral Vein, Percutaneous Approach (ICD-10-PCS; 2017-03-07)
PROC: 0DB78ZX Excision of Stomach, Pylorus, Via Natural or Artificial Opening Endoscopic, Diagnostic (ICD-10-PCS; principal; 2017-03-10 11:30)
PROC: 5A1935Z Respiratory Ventilation, Less than 24 Consecutive Hours (ICD-10-PCS; 2017-03-15)
PROC: 0BH17EZ Insertion of Endotracheal Airway into Trachea, Via Natural or Artificial Opening (ICD-10-PCS; 2017-03-15)
PROC: 5A12012 Performance of Cardiac Output, Single, Manual (ICD-10-PCS; 2017-03-15)
PROC: 03HB33Z Insertion of Infusion Device into Right Radial Artery, Percutaneous Approach (ICD-10-PCS; 2017-03-15)
PROC: B246ZZ4 Ultrasonography of Right and Left Heart, Transesophageal (ICD-10-PCS; 2017-03-17)
PROC: 0K9 Muscles, Drainage (ICD-10-PCS; 2017-03-24)
PROC: 0KC Muscles, Extirpation (ICD-10-PCS; 2017-03-26)
DX: A41.01 Sepsis due to Methicillin susceptible Staphylococcus aureus (principal); I46.9 Cardiac arrest, cause unspecified; I21.4 Non-ST elevation (NSTEMI) myocardial infarction; I50.43 Acute on chronic combined systolic (congestive) and diastolic (congestive) heart failure; N17.0 Acute kidney failure with tubular necrosis; K25.4 Chronic or unspecified gastric ulcer with hemorrhage; R65.21 Severe sepsis with septic shock; M00.032 Staphylococcal arthritis, left wrist; L03.114 Cellulitis of left upper limb; D62 Acute posthemorrhagic anemia; I48.92 Unspecified atrial flutter; E87.1 Hypo-osmolality and hyponatremia; E87.4 Mixed disorder of acid-base balance; R09.02 Hypoxemia; M10.9 Gout, unspecified; I25.10 Atherosclerotic heart disease of native coronary artery without angina pectoris; Z79.01 Long term (current) use of anticoagulants; K57.30 Diverticulosis of large intestine without perforation or abscess without bleeding; E78.5 Hyperlipidemia, unspecified; Z95.1 Presence of aortocoronary bypass graft; Z87.891 Personal history of nicotine dependence; K76.0 Fatty (change of) liver, not elsewhere classified; H81.09 Meniere's disease, unspecified ear; F41.9 Anxiety disorder, unspecified; N40.0 Benign prostatic hyperplasia without lower urinary tract symptoms; E87.5 Hyperkalemia; Z79.4 Long term (current) use of insulin; E11.22 Type 2 diabetes mellitus with diabetic chronic kidney disease; E87.79 Other fluid overload; I25.2 Old myocardial infarction; K80.20 Calculus of gallbladder without cholecystitis without obstruction; L27.0 Generalized skin eruption due to drugs and medicaments taken internally; T36.1X5A Adverse effect of cephalosporins and other beta-lactam antibiotics, initial encounter; Y92.230 Patient room in hospital as the place of occurrence of the external cause; E87.6 Hypokalemia; M79.81 Nontraumatic hematoma of soft tissue
CPT/HCPCS: 31500; 36415; 36430; 36600; 49406; 71010-TC; 71250-TC; 73090-TC-LT; 73110-TC-LT; 73130-TC-LT; 73200-TC-RT; 73700-TC-RT; 74176-TC; 76000-TC; 76705-TC; 76775-TC; 76856-TC; 78226-TC; 80048; 80053; 80074; 80076; 81003; 81015; 82140; 82247; 82248; 82272; 82330; 82436; 82553; 82570; 82607; 82728; 82746; 82803; 83010; 83036; 83516; 83520; 83540; 83550; 83605; 83615; 83735; 83880; 84100; 84133; 84156; 84300; 84460; 84484; 84540; 84550; 85025; 85027; 85044; 85610; 85651; 85730; 86038; 86140; 86160; 86162; 86256; 86618; 86850; 86900; 86901; 86922; 87040; 87070; 87077; 87086; 87102; 87186; 87205; 87210; 88108; 88300-TC; 88305-TC; 90688; 93005; 93010; 93306-TC; 93312; 93325; 93970-TC; 93971-TC; 93976; 94002; 94010; 94760; 97116-GP; 97162-GP; 99285-25; A9537; G0480; J1644; P9038; P9058

== ENCOUNTER 2019-05-16 08:45 | Day surgery (SDC) | payer OTHER, MEDICARE ==
[2019-05-13 15:46] VITALS: BMI 33.0
[2019-05-16 10:29] VITALS: TEMP 98.9
[2019-05-16 11:43] VITALS: BP 137/60; PULSE 58
--- NOTE | 2019-05-17 17:34 | PATH ---
Surgical Pathology Report Patient Name: RACHELE GALAVIZ [facility]. Rec. #: [id number] /Age/Gender: 1945 (Age: 73) / M Account: [id number] Location: U-ENDOSCOPY Taken: 05/16/2019 Received: 05/16/2019 Reported: 05/17/2019 Physicians: Juan Jose Motley M.D. Specimen(s) Received RECTAL POLYP Clinical History Adenoma surveillance Postoperative diagnosis: Rectal polyp, diverticulosis Final Diagnosis RECTAL POLYP, BIOPSY: HYPERPLASTIC POLYP. Electronically Signed Kareen Ray M.D. Gross Description Received in formalin, labeled "biopsy rectal polyp" are 2 villatoro, irregular portions of soft tissue averaging 0.2 cm. in greatest dimension. The specimens are submitted in toto in one cassette. 05/16/201905/16/2019
== END 2019-05-16 11:35 | disposition home or self-care (01) ==
LOC: JASU-ENDO 08:45
PROVIDERS: ATTEND Internal Medicine Gastroenterology
PROC: 0DBP8ZX Excision of Rectum, Via Natural or Artificial Opening Endoscopic, Diagnostic (ICD-10-PCS; principal; 2019-05-16 09:30)
DX: Z51.11 Encounter for antineoplastic chemotherapy (principal); K62.1 Rectal polyp; K64.8 Other hemorrhoids; K57.30 Diverticulosis of large intestine without perforation or abscess without bleeding
CPT/HCPCS: 88305-TC

== ENCOUNTER 2021-05-06 05:07 | Day surgery (SDC) | payer OTHER, MEDICARE ==
[2021-05-03 14:29] VITALS: BMI 29.2
[2021-05-06 15:54] VITALS: BP 146/70; PULSE 67; TEMP 98.5
== END 2021-05-06 15:36 | disposition home or self-care (01) ==
LOC: JRADIR 05:07
PROVIDERS: ATTEND Internal Medicine
PROC: 0BBL3ZX Excision of Left Lung, Percutaneous Approach, Diagnostic (ICD-10-PCS; principal; 2021-05-06)
DX: C34.92 Malignant neoplasm of unspecified part of left bronchus or lung (principal)
CPT/HCPCS: 32408; 71046-TC-FY; 77012-TC; 88305-TC

== ENCOUNTER 2021-06-13 12:20 | Observation (INO) | payer OTHER, MEDICARE ==
[2021-06-13 15:31] LABS: CHLORIDE 94 mmol/L (98-107); SODIUM 133 mmol/L (136-145)
[2021-06-13 15:33] LABS: CALCIUM 8.6 mg/dL (8.5-10.1)
[2021-06-13 15:34] LABS: ALBUMIN 2.9 g/dl (3.4-5.0); ANION GAP 8 MMOL/L (8-16); CO2 31 mmol/L (21-32); GLUCOSE,RANDOM 165 mg/dL (74-106); MAGNESIUM 2.3 mg/dL (1.8-2.4)
[2021-06-13 15:37] LABS: CREATININE 1.3 mg/dL (0.55-1.3); SGOT/AST 53 U/L (15-37); SGPT/ALT 53 U/L (13-61)
[2021-06-13 15:38] LABS: TOT PROT 6.5 g/dl (6.4-8.2)
[2021-06-13 15:40] LABS: ALK PHOS 119 U/L (45-117)
[2021-06-13 15:42] LABS: N-TERMINAL BNP 7138.2 pg/ml (5-125)
[2021-06-13] MEDS ORDERED: CEFTRIAXONE 1,000 MG in DEXTROSE 5%-WATER - 50 ML IVPB ONE (15:50)
[2021-06-13] MEDS ORDERED: AZITHROMYCIN IVPB 500 MG in DEXTROSE 5%-WATER - 250 ML IVPB ONE (15:50)
[2021-06-13] MEDS ORDERED: CEFTRIAXONE 1 GM/50 ML BAG ONE (16:36)
[2021-06-13] MEDS ORDERED: AZITHROMYCIN IVPB 500 MG/250 ML BAG IVPB ONE (17:19)
[2021-06-13] MEDS ORDERED: HYDROmorphone HCL CARPU-JECT 2 MG/1 ML DISP.SYRIN IVPUSH ONE (18:04)
[2021-06-13] MEDS ORDERED: HYDROmorphone HCl 2 MG/ML VIAL ONE (18:10)
[2021-06-13 19:06] LABS: BASO % 0.6 % (0-2.0); EOS % 1.3 % (0-4.5); HEMATOCRIT 31.6 % (35.4-49); HEMOGLOBIN 10.7 GM/dL (11.7-16.9); LYMPH % 13.5 % (8-40); MCH 30.7 pg (25.7-33.7); MEAN CELL VOLUME 90.3 fl (80-96); MONO % 13.6 % (3.8-10.2); PLATELET COUNT 206 10^3/uL (134-434); RDW 13.4 % (11.9-15.9); WHITE BLOOD COUNT 13.6 K/mm3 (4.0-10.0)
[2021-06-13] MEDS ORDERED: ACETAMINOPHEN 325 MG TABLET (FP) PO ONE (20:53)
[2021-06-13] MEDS ORDERED: LIDOCAINE 5% TOPICAL PATCH TP ONE (20:53)
[2021-06-13] MEDS ORDERED: ACETAMINOPHEN 325 MG TABLET (FP) ONE (20:59)
[2021-06-13] MEDS ORDERED: LIDOCAINE 5% TOPICAL PATCH ONE (20:59)
[2021-06-13] MEDS ORDERED: LIDOCAINE PATCH REMOVAL MC SCH (22:00)
[2021-06-13] MEDS ORDERED: guaiFENesin 200 MG/10 ML 10 ML UNIT-DOSE CUPS PO PRN (23:45)
[2021-06-13] MEDS ORDERED: ALBUTEROL SO4 HFA INHALER IH ONE (23:45)
[2021-06-13 23:53] VITALS: BMI 29.7
[2021-06-14] MEDS ORDERED: DOCUSATE SODIUM 100 MG CAPSULE (FP) PO PRN (02:43)
[2021-06-14] MEDS: INSULIN SLIDING SCALE (NOVOLOG) 1 VIAL SQ SCH ×4 (06:29→21:11)
[2021-06-14] MEDS ORDERED: guaiFENesin 200 MG/10 ML 10 ML UNIT-DOSE CUPS PO PRN (06:58)
[2021-06-14] MEDS ORDERED: LIDOCAINE PATCH REMOVAL MC SCH (08:00)
[2021-06-14 08:34] LABS: BASO % 0.7 % (0-2.0); EOS % 1.5 % (0-4.5); HEMATOCRIT 34.1 % (35.4-49); HEMOGLOBIN 11.5 GM/dL (11.7-16.9); LYMPH % 13.2 % (8-40); MCH 30.9 pg (25.7-33.7); MCHC 33.7 g/dl (32.0-35.9); MEAN CELL VOLUME 91.5 fl (80-96); MEAN PLT VOLUME 7.8 fl (7.5-11.1); NEUT % 74.6 % (42.8-82.8); PLATELET COUNT 247 10^3/uL (134-434); RBC 3.73 M/mm3 (4.00-5.60); RDW 13.6 % (11.9-15.9); WHITE BLOOD COUNT 12.5 K/mm3 (4.0-10.0)
[2021-06-14 09:01] LABS: BLOOD UREA NITROGEN 32.2 mg/dL (7-18); CALCIUM 8.7 mg/dL (8.5-10.1); MAGNESIUM 2.3 mg/dL (1.8-2.4)
[2021-06-14 09:02] LABS: ALBUMIN 2.9 g/dl (3.4-5.0)
[2021-06-14 09:04] LABS: CREATININE 1.2 mg/dL (0.55-1.3); PHOSPHOROUS 3.7 mg/dL (2.5-4.9)
[2021-06-14 09:05] LABS: BILIRUBIN,TOTAL 0.9 mg/dL (0.2-1); TOT PROT 6.3 g/dl (6.4-8.2)
[2021-06-14] MEDS ORDERED: cefTRIAXone SODIUM 1 GM VIAL ONE (09:29)
[2021-06-14] MEDS ORDERED: DEXTROSE 5%-WATER - 50 ML IVPB ONE ×2 (09:30→15:19)
[2021-06-14] MEDS ORDERED: ENOXAPARIN NA (PORCINE) 40 MG/0.4 ML DISP.SYRIN SQ SCH (10:00)
[2021-06-14] MEDS ORDERED: AZITHROMYCIN 250 MG TABLET PO SCH (10:00)
[2021-06-14] MEDS ORDERED: CEFTRIAXONE 1 GM in DEXTROSE 5%-WATER - 50 ML IVPB ONE (10:00)
[2021-06-14] MEDS ORDERED: guaiFENesin/D-M SUGAR-FREE/ACLHOL-FREE 118 ML BOTTLE PO PRN (14:47)
[2021-06-14] MEDS ORDERED: PIPERACILLIN/TAZOB 3.375 GM 3.375 GM in DEXTROSE 5%-WATER - 50 ML IVPB SCH (15:00)
[2021-06-14] MEDS ORDERED: PIPERACILLIN/TAZOBACTAM 3.375 GM VIAL IVPB ONE (15:18)
[2021-06-14] MEDS: FUROSEMIDE 40 MG/4 ML INJECTABLE VIAL IVPUSH SCH (15:21)
[2021-06-14] MEDS: PIPERACILLIN/TAZOB 3.375 GM 3.375 GM in DEXTROSE 5%-WATER - 50 ML IVPB SCH ×2 (15:21→17:37)
[2021-06-14] MEDS ORDERED: ALBUTEROL SO4 2.5/IPRATROPIUM 0.5 INH SOL 3 ML VIAL.NEB. NEB SCH ×2 (16:00)
[2021-06-14] MEDS: ACETAMINOPHEN 1000 MG/100 ML VIAL IVPB PRN (17:58)
[2021-06-14] MEDS: LEVALBUTEROL HCL 0.31 MG/3 ML VIAL.NEB IH SCH (20:20)
[2021-06-14] MEDS: SENNOSIDES 8.6MG TABLET (FP) PO SCH (21:06)
[2021-06-14] MEDS: APIXABAN 5 MG TABLET PO SCH (21:06)
[2021-06-14] MEDS: POLYETHYLENE GLYCOL (HEALTHYLAX) 3350 17 GM PACKET PO SCH (21:06)
[2021-06-14] MEDS: GABAPENTIN 300 MG CAPSULE PO SCH (21:06)
[2021-06-15] MEDS ORDERED: PIPERACILLIN/TAZOBACTAM 3.375 GM VIAL IVPB ONE ×3 (02:34→17:07)
[2021-06-15] MEDS ORDERED: DEXTROSE 5%-WATER - 50 ML IVPB ONE ×3 (02:35→17:07)
[2021-06-15] MEDS: PIPERACILLIN/TAZOB 3.375 GM 3.375 GM in DEXTROSE 5%-WATER - 50 ML IVPB SCH ×3 (02:38→17:08)
[2021-06-15] MEDS: ACETAMINOPHEN 1000 MG/100 ML VIAL IVPB PRN (02:38)
[2021-06-15] MEDS: GABAPENTIN 300 MG CAPSULE PO SCH ×3 (05:17→21:50)
[2021-06-15] MEDS: FUROSEMIDE 40 MG/4 ML INJECTABLE VIAL IVPUSH SCH ×2 (05:17→13:17)
[2021-06-15] MEDS: INSULIN SLIDING SCALE (NOVOLOG) 1 VIAL SQ SCH ×3 (06:11→17:05)
[2021-06-15 07:03] LABS: BASO % 0.7 % (0-2.0); EOS % 3.5 % (0-4.5); HEMATOCRIT 31.2 % (35.4-49); HEMOGLOBIN 10.7 GM/dL (11.7-16.9); LYMPH % 16.5 % (8-40); MCH 31.4 pg (25.7-33.7); MCHC 34.4 g/dl (32.0-35.9); MEAN CELL VOLUME 91.1 fl (80-96); MEAN PLT VOLUME 7.8 fl (7.5-11.1); MONO % 10.6 % (3.8-10.2); NEUT % 68.7 % (42.8-82.8); PLATELET COUNT 269 10^3/uL (134-434); RBC 3.42 M/mm3 (4.00-5.60); RDW 13.4 % (11.9-15.9); WHITE BLOOD COUNT 10.5 K/mm3 (4.0-10.0)
[2021-06-15 07:21] LABS: BLOOD UREA NITROGEN 25.5 mg/dL (7-18)
[2021-06-15 07:23] LABS: CALCIUM 8.5 mg/dL (8.5-10.1)
[2021-06-15 07:25] LABS: CREATININE 1.2 mg/dL (0.55-1.3)
[2021-06-15] MEDS: LEVALBUTEROL HCL 0.31 MG/3 ML VIAL.NEB IH SCH ×3 (08:19→20:58)
[2021-06-15] MEDS ORDERED: PIPERACILLIN/TAZOB 3.375 GM 3.375 GM in DEXTROSE 5%-WATER - 50 ML IVPB SCH (10:00)
[2021-06-15] MEDS ORDERED: FLUTICASONE/UMECLIDIN/VILANTER(200-62.5-25 TRELEGY ELLIPTA) INAHLER IH SCH (10:00)
[2021-06-15] MEDS: POLYETHYLENE GLYCOL (HEALTHYLAX) 3350 17 GM PACKET PO SCH (10:02)
[2021-06-15] MEDS: APIXABAN 5 MG TABLET PO SCH ×2 (10:02→21:50)
[2021-06-15] MEDS ORDERED: methylPREDNISolone NA SUCC 40 MG/1 ML VIAL IVPUSH SCH (12:15)
[2021-06-15] MEDS: SENNOSIDES 8.6MG TABLET (FP) PO SCH (21:50)
[2021-06-16] MEDS ORDERED: PIPERACILLIN/TAZOBACTAM 3.375 GM VIAL IVPB ONE ×3 (00:55→17:26)
[2021-06-16] MEDS ORDERED: DEXTROSE 5%-WATER - 50 ML IVPB ONE ×3 (00:56→17:27)
[2021-06-16] MEDS: PIPERACILLIN/TAZOB 3.375 GM 3.375 GM in DEXTROSE 5%-WATER - 50 ML IVPB SCH ×3 (01:21→17:54)
[2021-06-16] MEDS: INSULIN SLIDING SCALE (NOVOLOG) 1 VIAL SQ SCH ×5 (01:21→22:00)
[2021-06-16] MEDS: POLYETHYLENE GLYCOL (HEALTHYLAX) 3350 17 GM PACKET PO SCH ×2 (01:22→10:22)
[2021-06-16] MEDS: FUROSEMIDE 40 MG/4 ML INJECTABLE VIAL IVPUSH SCH (06:03)
[2021-06-16] MEDS: GABAPENTIN 300 MG CAPSULE PO SCH ×3 (06:13→21:56)
[2021-06-16 07:15] LABS: BASO % 0.8 % (0-2.0); EOS % 4.2 % (0-4.5); HEMATOCRIT 32.1 % (35.4-49); HEMOGLOBIN 10.9 GM/dL (11.7-16.9); LYMPH % 21.2 % (8-40); MCH 30.9 pg (25.7-33.7); MEAN CELL VOLUME 90.8 fl (80-96); MEAN PLT VOLUME 7.2 fl (7.5-11.1); MONO % 10.1 % (3.8-10.2); NEUT % 63.7 % (42.8-82.8); PLATELET COUNT 280 10^3/uL (134-434); RBC 3.54 M/mm3 (4.00-5.60); RDW 13.4 % (11.9-15.9); WHITE BLOOD COUNT 11.6 K/mm3 (4.0-10.0)
[2021-06-16 08:01] LABS: CALCIUM 8.5 mg/dL (8.5-10.1)
[2021-06-16 08:02] LABS: BLOOD UREA NITROGEN 18.8 mg/dL (7-18)
[2021-06-16 08:05] LABS: CREATININE 1.1 mg/dL (0.55-1.3)
[2021-06-16] MEDS: LEVALBUTEROL HCL 0.31 MG/3 ML VIAL.NEB IH SCH ×3 (08:31→19:59)
[2021-06-16] MEDS ORDERED: FUROSEMIDE 40 MG/4 ML INJECTABLE VIAL IVPUSH SCH (10:00)
[2021-06-16] MEDS ORDERED: FLUTICASONE/UMECLIDIN/VILANTER(200-62.5-25 TRELEGY ELLIPTA) INAHLER IH SCH (10:00)
[2021-06-16] MEDS: APIXABAN 5 MG TABLET PO SCH ×2 (10:21→21:56)
[2021-06-16] MEDS: HYDROmorphone HCL 2 MG TABLET PO PRN (17:59)
[2021-06-16] MEDS: SENNOSIDES 8.6MG TABLET (FP) PO SCH (21:55)
[2021-06-16] MEDS ORDERED: ROSUVASTATIN CA 20 MG TABLET (FP) PO SCH (22:00)
[2021-06-16] MEDS: CARVEDILOL 6.25 MG TABLET (FP) PO SCH (22:22)
[2021-06-17] MEDS ORDERED: DEXTROSE 5%-WATER - 50 ML IVPB ONE ×2 (01:05→08:50)
[2021-06-17] MEDS ORDERED: PIPERACILLIN/TAZOBACTAM 3.375 GM VIAL IVPB ONE ×2 (01:05→08:50)
[2021-06-17] MEDS: PIPERACILLIN/TAZOB 3.375 GM 3.375 GM in DEXTROSE 5%-WATER - 50 ML IVPB SCH ×2 (03:41→09:31)
[2021-06-17] MEDS: POLYETHYLENE GLYCOL (HEALTHYLAX) 3350 17 GM PACKET PO SCH ×2 (06:33→09:32)
[2021-06-17] MEDS: GABAPENTIN 300 MG CAPSULE PO SCH ×2 (06:37→14:36)
[2021-06-17] MEDS: INSULIN SLIDING SCALE (NOVOLOG) 1 VIAL SQ SCH ×2 (06:57→12:05)
[2021-06-17 07:09] LABS: BASO % 0.8 % (0-2.0); EOS % 3.2 % (0-4.5); HEMATOCRIT 33.2 % (35.4-49); HEMOGLOBIN 11.1 GM/dL (11.7-16.9); LYMPH % 20.3 % (8-40); MCH 30.5 pg (25.7-33.7); MCHC 33.5 g/dl (32.0-35.9); MEAN CELL VOLUME 90.9 fl (80-96); MEAN PLT VOLUME 7.3 fl (7.5-11.1); MONO % 9.1 % (3.8-10.2); NEUT % 66.6 % (42.8-82.8); PLATELET COUNT 305 10^3/uL (134-434); RBC 3.65 M/mm3 (4.00-5.60); RDW 13.4 % (11.9-15.9)
[2021-06-17 07:25] LABS: BLOOD UREA NITROGEN 18.9 mg/dL (7-18); CALCIUM 8.6 mg/dL (8.5-10.1); MAGNESIUM 1.9 mg/dL (1.8-2.4)
[2021-06-17 07:29] LABS: CREATININE 1.1 mg/dL (0.55-1.3)
[2021-06-17] MEDS: LEVALBUTEROL HCL 0.31 MG/3 ML VIAL.NEB IH SCH ×2 (08:02→14:15)
[2021-06-17] MEDS ORDERED: TAMSULOSIN HCL 0.4 MG CAP PO SCH (08:30)
[2021-06-17] MEDS: CARVEDILOL 6.25 MG TABLET (FP) PO SCH (09:31)
[2021-06-17] MEDS: APIXABAN 5 MG TABLET PO SCH (09:31)
[2021-06-17] MEDS ORDERED: PANTOPRAZOLE 40 MG TABLET PO SCH (10:00)
[2021-06-17] MEDS ORDERED: PATIENT'S OWN MEDICATION (NON-FORMULARY) (Empagliflozin [Jardiance] 10 MG Tablet) PO SCH (10:00)
[2021-06-17] MEDS ORDERED: PATIENT'S OWN MEDICATION (NON-FORMULARY) (Icosapent Ethyl [Vascepa] 1 GM Capsule) PO SCH (10:00)
[2021-06-17] MEDS ORDERED: EZETIMIBE 10 MG TABLET (FP) PO SCH (10:00)
[2021-06-17] MEDS ORDERED: LOSARTAN POTASSIUM 25 MG TABLET PO SCH (10:00)
[2021-06-17] MEDS ORDERED: FUROSEMIDE 20 MG TABLET (FP) PO SCH (10:00)
[2021-06-17] MEDS ORDERED: FLUTICASONE/UMECLIDIN/VILANTER(100-62.5-25 TRELEGY ELLIPTA) INAHLER IH SCH (10:00)
[2021-06-17] MEDS ORDERED: ALLOPURINOL 100 MG TABLET (FP) PO SCH (10:00)
[2021-06-17] MEDS ORDERED: ASCORBIC ACID 500 MG TABLET (FP) PO SCH (10:00)
[2021-06-17] MEDS: HYDROmorphone HCL 2 MG TABLET PO PRN (12:04)
[2021-06-17 15:26] VITALS: BP 121/61; PULSE 70; TEMP 98.5
== END 2021-06-17 17:37 | disposition home or self-care (01) ==
LOC: JER 12:20 → JERBED 20:01 → INTOOBSV 20:01 → J4W 22:27
PROVIDERS: ADMIT Hospitalist
PROC: 3E033GC Introduction of Other Therapeutic Substance into Peripheral Vein, Percutaneous Approach (ICD-10-PCS; principal; 2021-06-13)
PROC: 3E0333Z Introduction of Anti-inflammatory into Peripheral Vein, Percutaneous Approach (ICD-10-PCS; 2021-06-13)
PROC: 3E033NZ Introduction of Analgesics, Hypnotics, Sedatives into Peripheral Vein, Percutaneous Approach (ICD-10-PCS; 2021-06-13)
PROC: 3E013VG Introduction of Insulin into Subcutaneous Tissue, Percutaneous Approach (ICD-10-PCS; 2021-06-13)
PROC: 3E013GC Introduction of Other Therapeutic Substance into Subcutaneous Tissue, Percutaneous Approach (ICD-10-PCS; 2021-06-13)
PROC: 3E0F7SF Introduction of Other Gas into Respiratory Tract, Via Natural or Artificial Opening (ICD-10-PCS; 2021-06-13)
DX: R50.9 Fever, unspecified (principal); E11.22 Type 2 diabetes mellitus with diabetic chronic kidney disease; I13.0 Hypertensive heart and chronic kidney disease with heart failure and stage 1 through stage 4 chronic kidney disease, or unspecified chronic kidney disease; N18.4 Chronic kidney disease, stage 4 (severe); I50.33 Acute on chronic diastolic (congestive) heart failure; Z79.84 Long term (current) use of oral hypoglycemic drugs; E11.42 Type 2 diabetes mellitus with diabetic polyneuropathy; I48.19 Other persistent atrial fibrillation; M10.9 Gout, unspecified; E78.1 Pure hyperglyceridemia; N40.1 Benign prostatic hyperplasia with lower urinary tract symptoms; C34.90 Malignant neoplasm of unspecified part of unspecified bronchus or lung; E78.5 Hyperlipidemia, unspecified; H81.09 Meniere's disease, unspecified ear; K59.00 Constipation, unspecified; D64.9 Anemia, unspecified; G89.29 Other chronic pain; Z95.1 Presence of aortocoronary bypass graft; Z79.82 Long term (current) use of aspirin
CPT/HCPCS: 36415; 71045-TC-FY; 71250-TC; 80048; 80053; 82550; 82553; 82962; 83735; 83880; 84100; 84484; 85025; 87070; 87205; 93005; 93010; 94640; 96365; 96367; 96368; 96372; 96375; 99285-25; C9803; G0378; J0131; U0003; U0005

== ENCOUNTER 2023-07-09 12:25 | Day surgery (SDC) | payer OTHER, MEDICARE ==
[2023-07-03 13:31] VITALS: BMI 28.9
[2023-07-09] MEDS: ceFAZolin SODIUM 1 GM VIAL IVPB ONE (08:46)
[2023-07-09] MEDS: LIDOCAINE HCL 1%, 10 MG/ML (20ML VIAL) INF ONE (09:10)
[~2023-07-09 12:25] MED LIST: ASPIRIN 81 MG CHEWABLE TABLETS ONE; DEXAMETHASONE SOD PHOSPHATE 4 MG/1 ML VIAL ONE; LACTATED RINGERS SOLUTION 1,000 ML IV SCH; LIDOCAINE 1%/EPI 1:100000 (20 ML MULTI DOSE VIAL) ONE; MIDAZOLAM HCL 2 MG/2 ML SINGLE DOSE VIAL ONE; ONDANSETRON 4 MG/2 ML VIAL IVPUSH PRN; ONDANSETRON 4 MG/2 ML VIAL ONE; PROPOFOL 40 ML ONE; ROCURONIUM BROMIDE 50 MG/5 ML SYRINGE ONE; SUCCINYLCHOLINE CHLORIDE 200 MG/10 ML SYRINGE ONE; oxyCODONE HCL 5 MG TABLET PO PRN
[2023-07-09 12:45] VITALS: RESP 20
[2023-07-09] MEDS: ACETAMINOPHEN 325 MG TABLET (FP) PO SCH (13:05)
[2023-07-09] MEDS: CARVEDILOL 6.25 MG TABLET (FP) PO SCH (21:16)
[2023-07-09] MEDS: GABAPENTIN 300 MG CAPSULE PO SCH (21:16)
[2023-07-09] MEDS: MECLIZINE HCL 12.5 MG TABLET PO SCH (21:16)
[2023-07-09] MEDS: INSULIN ASPART SLIDING SCALE (NOVOLOG) 1 VIAL SQ SCH (21:20)
[2023-07-09] MEDS: CHOLECALCIFEROL (VIT D3) 1,000 UNIT (25 MCG) TABLET PO SCH (21:46)
[2023-07-09] MEDS ORDERED: CHOLECALCIFEROL (VIT D3) 1,000 UNIT (25 MCG) TABLET PO SCH (22:00)
[2023-07-10 09:14] VITALS: BP 146/61; PULSE 67; TEMP 97.5
[2023-07-10] MEDS: LOSARTAN POTASSIUM 25 MG TABLET PO SCH (09:43)
[2023-07-10] MEDS: ROSUVASTATIN CA 20 MG TABLET PO SCH (09:43)
[2023-07-10] MEDS: ASCORBIC ACID 500 MG TABLET (FP) PO SCH (09:44)
[2023-07-10] MEDS: FLUTICASONE/UMECLIDIN/VILANTER(200-62.5-25 TRELEGY ELLIPTA) INAHLER IH SCH (09:44)
[2023-07-10] MEDS: EZETIMIBE 10 MG TABLET (FP) PO SCH (09:44)
[2023-07-10] MEDS: FUROSEMIDE 20 MG TABLET (FP) PO SCH (09:44)
[2023-07-10] MEDS: ASPIRIN COATED 81 MG TABLET.EC PO SCH (09:44)
[2023-07-10] MEDS: TRIAMTERENE 50 MG CAPSULE PO SCH (09:44)
[2023-07-10] MEDS: ALLOPURINOL 100 MG TABLET (FP) PO SCH (09:45)
== END 2023-07-10 09:43 | disposition home or self-care (01) ==
LOC: JASUSAT 12:25 → J6S 12:25 → JASUSAT 07-10 09:43
PROVIDERS: ATTEND Surgery
PROC: 0GTH0ZZ Resection of Right Thyroid Gland Lobe, Open Approach (ICD-10-PCS; principal; 2023-07-09 08:00)
DX: D34 Benign neoplasm of thyroid gland (principal)
CPT/HCPCS: 36415; 82010; 82962; 88307-TC; 88341-TC; 88342-TC; 94760